=== PATIENT | female | born 1980 | race Hispanic/Latino ===

== ENCOUNTER 2020-05-24 06:55 | Emergency (ER) | payer OTHER ==
[~2020-05-24] VITALS: Ht 157.5 cm; Wt 90.7 kg
--- OUTSIDE RECORDS SUMMARY | ~2020-05-24 | XMS | Encounter Summary ---
Demographics + + + | Address | [facility] | | | [place] [address] | + + + | Home Phone | | + + + | Preferred Language | Unknown | + + + | Marital Status | Single | + + + | Anglican Affiliation | 1041 | + + + | Race | Unknown | + + + | Ethnic Group | or | + + + Author + + + | Author | [facility] | | | and [place] | + + + | Organization | [facility] | | | and [place] | + + + | Address | Unknown | + + + | Phone | Unavailable | + + + Support + + + + + | Name | Relationship | Address | Phone | + + + + + | Luke Montgomery | ECON | [address] | | | | | [place] | | | | | [place], [place] | | | | | [address] | | + + + + + | Amy Schneider | ECON | [address] | | | | | [place], [place] | | | | | [address] | | + + + + + | Alisha Schneider | ECON | Unknown | | + + + + + Care Team Providers + +------+ + | Care Ore Feeder Name | Role | Phone | + +------+ + | Jet Chaney MD | PCP | | + +------+ + Encounter Details +--------+ + + + + | Date | Type | Department | Care Team | Description | +--------+ + + + + | 07/01/ | Episode | [facility] | Fifi Zimmerman | | | 2018 | Changes | GASTROENTEROLOGY | THO [facility] | | | | | [address] [facility] | | | | | | [address] [place] | | | | | | [address] | | | | | | [phone] | | | +--------+ + + + + Social History + +-------+ +--------+------+ | Tobacco Use | Types | Packs/Day | Years | Date | | | | | Used | | + +-------+ +--------+------+ | Current Some Day | | | 0.3 | | | Smoker | | | | | + +-------+ +--------+------+ + +---+---+---+ | Smokeless Tobacco: | | | | | Never Used | | | | + +---+---+---+ + + | Comments: 2 cigs daily | + + + + +---------+ + | Alcohol Use | Drinks/Week | oz/Week | Comments | + + +---------+ + | No | 0 Standard drinks | 0.0 | | | | or equivalent | | | + + +---------+ + + + + | Sex Assigned at | Date Recorded | | | | + + + | Not on file | | + + + documented as of this encounter Plan of Treatment Not on filedocumented as of this encounter Visit Diagnoses Not on filedocumented in this encounter"
--- OUTSIDE RECORDS SUMMARY | ~2020-05-24 | XMS | Encounter Summary ---
Demographics + + + | Address | [facility] | | | [place] [address] | + + + | Home Phone | | + + + | Preferred Language | Unknown | + + + | Marital Status | Single | + + + | Episcopal Affiliation | 1041 | + + + | Race | Unknown | + + + | Ethnic Group | or | + + + Author + + + | Author | [facility] | | | and [place] | + + + | Organization | [facility] | | | and [place] [...] [place], [place] | | | | | [address] | | + + + + + | Amy Schneider | ECON | [address] | | | | | [place], [place] | | | | | [address] | | + + + + + | Alisha Schneider | ECON | Unknown | | + + + + + Care Team Providers + +------+ + | Care Web Marketing Coordinator Name | Role | Phone | + +------+ + | Jet Chaney MD | PCP | | + +------+ + Reason for Referral Diagnostic/Screening (Routine) +--------+--------+ + + + + | Status | Reason | Specialty | Diagnoses / | Referred By | Referred To | | | | | Procedures | Contact | Contact | +--------+--------+ + + + + | Closed | | Radiology | Diagnoses | Ritu, | [address] | | | | | | Jet Dempsey MD | [address] | | | | | Nephrolithia | [address] | [place], | | | | | sis | [place] | [place] [address] | | | | | Procedures | [place], [place] | Phone: | | | | | CT Abdomen | [address] | [phone] | | | | | Pelvis wo | Phone: | Fax: | | | | | Contrast | [phone] | [phone] | | | | | | Fax: | | | | | | | [phone] | | +--------+--------+ + + + + Reason for Visit + +--------+ + | Reason | Onset | Comments | | | Date | | + +--------+ + | Referral (Follow up) | 01/30/ | | | | 2017 | | + +--------+ + Encounter Details +--------+ + + + + | Date | Type | Department | Care Team | Description | +--------+ + + + + | 01/30/ | Telephone | [facility] | Jet Chaney, | Referral (Follow up) | | 2017 | | [facility] | [address] | | | | | [address] | [place] | | | | | [place] | [address] | | | | | [address] | | | | | | [phone] | | | +--------+ + + + [...] + + documented as of this encounter Miscellaneous Notes Telephone Encounter - Jet Chaney MD - 02/04/2018 4:35 PM PDTPer insurance requireme nt - CT changed to noncontrast CT Abd/Pelvis to evaluate kidney stone. Prashanth Chaney MD elephone Encounter - Roxana Lucio LPN - 01/30/2018 10:21 AM PDTMessage sent to referrals to check status o n getting the CT urogram authorized.Electronically signed by Roxana Lucio LPN at 018 10:21 AM PDTTelephone Encounter - Roxana Lucio LPN - 01/30/2018 10:21 AM PDT----- M nina from Jet Chaney MD sent at 01/24/2018 19:01 PDT ----- Regarding: CT If the CT urogram has not been approved yet - will you please follow-up with referrals. Thanks, Prashanth Chaney MD documented in this encounter Plan of Treatment Not on filedocumented as of this encounter Results CT Abdomen Pelvis wo Contrast (02/24/2018 4:35 PM PDT) + + | Specimen | + + | | + + + + + | Narrative | Performed At | + + + | CT ABDOMEN PELVIS WO CONTRAST 02/24/2018 4:30 PM HISTORY: | [facility] | | evaluation of possible kidney stones. COMPARISON: 02/04/2014 | | | PROTOCOL: Axial images of the abdomen and pelvis were obtained. | | | Coronal and sagittal reformations were acquired. FINDINGS: | | | LUNG BASE: Visualized lung bases are clear. Heart is normal in size. | | | No evidence of pleural effusion. Question a tiny 3 mm round left | | | nodule within the right middle lobe (series 2, image 3). | | | HEPATOBILIARY: The liver is mildly enlarged and demonstrates normal | | | parenchyma. Gallbladder is absent. No evidence of intrahepatic or | | | extrahepatic biliary ductal dilatation. SPLEEN: Normal parenchyma. | | | No evidence of mass or splenomegaly. PANCREASE: Normal parenchyma. No | | | evidence of pancreatic ductal dilation. ADRENAL GLANDS: No evidence | | | of nodule, mass or suspicious thickening. KIDNEYS: Multiple | | | nonobstructive bilateral small 1-3 mm renal calculi are present. No | | | evidence of hydronephrosis or hydroureter. No suspicious renal mass | | | identified on this noncontrast CT. Visualized portions of both ureters | | | appear normal. BOWEL: The stomach is normal. Imaged small bowel and | | | colon demonstrate no acute findings. No evidence of dilatation to | | | suggest obstruction or abnormal bowel wall thickening. VASCULATURE: | | | Limited visualization of the venous and arterial structures show no | | | gross abnormality within the confines of a noncontrast CT. LYMPH | | | NODES: No enlarged lymph nodes are visualized within the omentum or | | | retroperitoneum. PERITONEUM: There is no evidence for free fluid or | | | free air. BLADDER: Unremarkable. REPRODUCTIVE: Uterus and adnexal | | | structures are without evidence of gross abnormality. Intrauterine | | | device is noted. Prominence of both ovaries with benign appearing | | | likely small cystic lesions. SOFT TISSUES: Body wall soft tissue | | | structures are normal. BONES: There are no acute osseous | | | abnormalities. IMPRESSION - 1. Bilateral nonobstructive | | | nephrolithiasis. 2. Previous identified 3 mm groundglass nodule in | | | the right middle lobe is unchanged since 2014, benign with no further | | | follow-up imaging needed. 3. Mild/borderline hepatomegaly. | | | Dictated and Signed by: Alejo Farrar MD Electronically signed: | | | 02/24/2018 7:39 PM | | + + + + + | Procedure Note | + + | Kranthi, Rad Results In - 02/24/2018 7:[address] ABDOMEN PELVIS WO CONTRAST 02/24/2018 | | 4:30 PMHISTORY: evaluation of possible kidney stones.COMPARISON: 02/04/2014PROTOCOL: | | Axial images of the abdomen and pelvis were obtained. Coronal andsagittal reformations | | were acquired.FINDINGS:LUNG BASE: Visualized lung bases are clear. Heart is normal in | | size. No evidenceof pleural effusion. Question a tiny 3 mm round left nodule within the | | rightmiddle lobe (series 2, image 3).HEPATOBILIARY: The liver is mildly enlarged and | | demonstrates normal parenchyma.Gallbladder is absent. No evidence of intrahepatic or | | extrahepatic biliaryductal dilatation.SPLEEN: Normal parenchyma. No evidence of mass or | | splenomegaly.PANCREASE: Normal parenchyma. No evidence of pancreatic ductal | | dilation.ADRENAL GLANDS: No evidence of nodule, mass or suspicious thickening.KIDNEYS: | | Multiple nonobstructive bilateral small 1-3 mm renal calculi arepresent. No evidence of | | hydronephrosis or hydroureter. No suspicious renal massidentified on this noncontrast | | CT. Visualized portions of both ureters appearnormal.BOWEL: The stomach is normal. | | Imaged small bowel and colon demonstrate no acutefindings. No evidence of dilatation to | | suggest obstruction or abnormal bowelwall thickening.VASCULATURE: Limited visualization | | of the venous and arterial structures showno gross abnormality within the confines of a | | noncontrast CT.LYMPH NODES: No enlarged lymph nodes are visualized within the omentum | | orretroperitoneum. PERITONEUM: There is no evidence for free fluid or free air.BLADDER: | | Unremarkable.REPRODUCTIVE: Uterus and adnexal structures are without evidence of | | grossabnormality. Intrauterine device is noted. Prominence of both ovaries withbenign | | appearing likely small cystic lesions.SOFT TISSUES: Body wall soft tissue structures are | | normal. BONES: There are no acute osseous abnormalities.IMPRESSION -1. Bilateral | | nonobstructive nephrolithiasis.2. Previous identified 3 mm groundglass nodule in the | | right middle lobe isunchanged since 2013, benign with no further follow-up imaging | | needed.3. Mild/borderline hepatomegaly.Dictated and Signed by: Alejo Farrar MD | | Electronically signed: 02/24/2018 7:39 PM | |wall thickening. | |VASCULATURE: Limited visualization of the venous and arterial structures show | |no gross abnormality within the confines of a noncontrast CT. | |LYMPH NODES: No enlarged lymph nodes are visualized within the omentum or | |retroperitoneum. | |PERITONEUM: There is no evidence for free fluid or free air. | |BLADDER: Unremarkable. | |REPRODUCTIVE: Uterus and adnexal structures are without evidence of gross | |abnormality. Intrauterine device is noted. Prominence of both ovaries with | |benign appearing likely small cystic lesions. | |SOFT TISSUES: Body wall soft tissue structures are normal. | |BONES: There are no acute osseous abnormalities. | | | |IMPRESSION - | |1. Bilateral nonobstructive nephrolithiasis. | |2. Previous identified 3 mm groundglass nodule in the right middle lobe is | |unchanged since 2013, benign with no further follow-up imaging needed. | |3. Mild/borderline hepatomegaly. | | | |Dictated and Signed by: Alejo Farrar MD | | Electronically signed: 02/24/2018 7:39 PM | + + + +---------+ + + | Performing | Address | City/State/Zipcode | Phone Number | | Organization | | | | + +---------+ + + | [facility] | | | | + +---------+ + + documented in this encounter Visit Diagnoses + + | Diagnosis | + + | Nephrolithiasis - Primary Calculus of kidney | + + documented in this encounter"
--- OUTSIDE RECORDS SUMMARY | ~2020-05-24 | XMS | Encounter Summary ---
Demographics + + + | Address | [facility] | | | [place] [address] | + + + | Home Phone | | + + + | Preferred Language | Unknown | + + + | Marital Status | Single | + + + | Orthodox Affiliation | 1041 | + + + | Race | Unknown | + + + | Ethnic Group | or | + + + Author + + + | Author | [facility] | | | and [place] | + + + | Organization | [facility] | | | and [place] [...] [place], [place] | | | | | [address] | | + + + + + | Amy Schneider | ECON | [address] | | | | | [place], [place] | | | | | [address] | | + + + + + | Alisha Schneider | ECON | Unknown | | + + + + + Care Team Providers + +------+ + | Care Meal Room Hand Name | Role | Phone | + +------+ + | Jet Chaney MD | PCP | | + +------+ + Reason for Visit + + + | Reason | Comments | + + + | Procedure | trigger point injections | + + + Evaluate & Treat (Routine) +--------+ + + + + + | Status | Reason | Specialty | Diagnoses / | Referred By | Referred To | | | | | Procedures | Contact | Contact | +--------+ + + + + + | Closed | Specialty | Physical | Diagnoses | Oscar, | Eloy Moore | | | Services | Medicine and | Trigger | Eloy Yusuf MD | Gallo Yusuf MD [address] | | | Required | Rehabilitatio | point with | [address] | | | | n | back pain | [address] | [place], | | | | | Procedures | [place], | [place] [address] | | | | | [place] | [place] [address] | Phone: | | | | | TRIGGER | Phone: | [phone] | | | | | POINT, 3+ | [phone] | Fax: | | | | | [place] | Fax: | [phone] | | | | | METHYLPREDNI | [phone] | | | | | | SOLONE 40 MG | | | | | | | INJ DOS | | | | | | | 06/12/18 | | | +--------+ + + + + + Encounter Details +--------+ + + + + | Date | Type | Department | Care Team | Description | +--------+ + + + + | 06/12/ | Procedure | [facility] | Eloy Moore, | Trigger point with | | 2018 | visit | PHYSIATRY [address] | [address] | back pain (Primary | | | | [address] | [place], [place] | Dx) | | | | [place], [place] | [address] | | | | | [address] | | | | | | [phone] | | | +--------+ + + + [...] + + documented as of this encounter Last Filed Vital Signs + + + + + | Vital Sign | Reading | Time Taken | Comments | + + + + + | Blood Pressure | 135/90 | 06/12/2018 4:54 PM | | | | | PDT | | + + + + + | Pulse | 70 | 06/12/2018 4:54 PM | | | | | PDT | | + + + + + | Temperature | 36.4 C (97.5 F) | 06/12/2018 4:54 PM | | | | | PDT | | + + + + + | Respiratory Rate | - | - | | + + + + + | Oxygen Saturation | - | - | | + + + + + | Inhaled Oxygen | - | - | | | Concentration | | | | + + + + + | Weight | 89.8 kg (198 lb) | 06/12/2018 4:54 PM | | | | | PDT | | + + + + + | Height | 157.5 cm (5' 2") | 06/12/2018 4:54 PM | | | | | PDT | | + + + + + | Body Mass Index | 36.21 | 06/12/2018 4:54 PM | | | | | PDT | | + + + + + documented in this encounter Patient Instructions Patient Instructions Eloy Moore MD - 06/12/2018 4:30 PM PDTIf you develop any signs of infection (e.g. Fever, chills, redness, warmth, drainage) seek emergent medical attention and inform the clinic. Feel free to use ice, massage, and stretch after your injections to day. Please avoid direct heat, over the injections site, for 3 days following injection. Return to the clinic in 6-8 weeks to review management of smyptoms. documented in this encounter Progress Notes Eloy Moore MD - 06/12/2018 4:30 PM PDTFormatting of this note might be different fro m the original. Diagnosis: 1. Trigger point with back pain Procedure: Left lumbar paraspinal muscle trigger point injections Procedure Detail: Informed consent was obtained. Risk, benefits, and alternative treatmen ts were reviewed. Risks reviewed included but not limited to: bruising, bleeding, infection , damage to adjacent structures, disability and . The risk of skin discoloration from steroid injection was reviewed. The risk of pneumothorax, need for hospitalization, ventila tion, and emergent medical care was reviewed. Once informed consent was obtained two 5 ml syringes was/were prepared. Each syringe conta ined 1 ml of DepoMedrol 20 mg/ml, 2 ml of lidocaine 1% and 2 ml of 0.5% ropivacaine. Each s yringe had a total medication volume of 5 ml. The trigger points were identified anatomically, with palpation, and reproduction of pain. The skin over each of the trigger points was cleaned with an alcohol swab prior to injectio n. A 25 gauge 1-1/2 inch needle was used for all trigger point injections. The medication was injected evenly between 4 separate trigger points. At each trigger point, once medicat ion was injected, the needle was redirected in a ray-like fashion radiating out from the german tral insertion point of the needle. The muscles injected today include: left lumbar parasp inal muscles (including erector spinae). Baudilio Schneider was discharged from the clinic with the instructions; avoid the use of heat f or the next 3 days. The use of ice and massage is ok. The patient was instructed that shou ld they have any alarming signs or symptoms that they should seek emergent medical care as w ell as inform me in the clinic. Thank you for allowing me to be involved in the care of your patient. If you have any ques tions regarding the care of your patient please don't hesitate to call. Eloy Moore MD (Jr.) documented in this en counter Plan of Treatment Not on filedocumented as of this encounter Visit Diagnoses + + | Diagnosis | + + | Trigger point with back pain - Primary Backache, unspecified | + + documented in this encounter Administered Medications + + + +-------+------+ + | Medication Order | MAR | Action | Dose | Rate | Site | | | Action | Date | | | | + + + +-------+------+ + | lidocaine 1% injection 4 mL 4 | Given by | 06/12/20 | 4 mLs | | Other | | mL, Intramuscular, ONCE, Karen | Other | 18 5:39 | | | (Comment | | 06/12/18 at 1800, For 1 dose | | PM PDT | | | ) | + + + +-------+------+ + +---+---+ | | | +---+---+ + + + +-------+---+ + | methylPREDNISolone acetate | Given by | 06/12/20 | 40 mg | | Other | | (DEPO-MEDROL) 20 mg/mL injection | Other | 18 5:40 | | | (Comment | | 40 mg 40 mg, Intramuscular, | | PM PDT | | | ) | | ONCE, Karen 06/12/18 at 1800, For 1 | | | | | | | dose, Not for IV use., | | | | | | + + + +-------+---+ + +---+---+ | | | +---+---+ + + + +-------+---+ + | ropivacaine (NAROPIN) 5 mg/mL | Given by | 06/12/20 | 4 mLs | | Other | | (0.5%) injection 4 mL 4 mL, | Other | 18 5:39 | | | (Comment | | Infiltration, ONCE, [facility] 06/12/18 | | PM PDT | | | ) | | at 1800, For 1 dose | | | | | | + + + +-------+---+ + +---+---+ | | | +---+---+ documented in this encounter
--- OUTSIDE RECORDS SUMMARY | ~2020-05-24 | XMS | Encounter Summary ---
Demographics + + + | Address | [facility] | | | [place] [address] | + + + | Home Phone | | + + + | Preferred Language | Unknown | + + + | Marital Status | Single | + + + | Hoahaoism Affiliation | 1041 | + + + | Race | Unknown | + + + | Ethnic Group | or | + + + Author + + + | Author | [facility] | | | and [place] | + + + | Organization | [facility] | | | and [place] | [...] [place], [place] | | | | | [address] | | + + + + + | Amy Schneider | ECON | [address] | | | | | [place], [place] | | | | | [address] | | + + + + + | Alisha Schneider | ECON | Unknown | | + + + + + Care Team Providers + +------+ + | Care Railroad Crossing Protection Maintainer Name | Role | Phone | + +------+ + | Jet Chaney MD | PCP | | + +------+ + Reason for Visit + + + | Reason | Comments | + + + | Injections | Trigger points | + + + Service/Procedure (Routine) +--------+--------+ + + + + | Status | Reason | Specialty | Diagnoses / | Referred By | Referred To | | | | | Procedures | Contact | Contact | +--------+--------+ + + + + | Closed | | Physical | Diagnoses | Edmundo, | [facility] | | | | Medicine and | Trigger | JULITA Santamaria | Physiatry | | | | Rehabilitatio | point with | [address] | | | | n | back pain | [address] | [address] | | | | | Procedures | [address] | [place], | | | | | [place] INJECT | [place], | [place] [address] | | | | | TRIGGER | [place] [address] | Phone: | | | | | POINT, 3+ | Phone: | [phone] | | | | | MUSCLES [place] | [phone] | Fax: | | | | | OFFICE | Fax: | [phone] | | | | | OUTPATIENT | [phone] | | | | | | VISIT 15 | | | | | | | MINUTES HI | | | | | | | LIDOCAINE | | | | | | | INJECTION, | | | | | | | 10 MG DOS | | | | | | | 05/28/19 | | | | | | | Trigger | | | | | | | Point | | | | | | | Injections | | | +--------+--------+ + + + + Encounter Details +--------+ + + + + | Date | Type | Department | Care Team | Description | +--------+ + + + + | 11/09/ | Procedure | [facility] | Vi Noguera | Trigger point with | | 2020 | visit | PHYSIATRY [address] | JULITA Cancino [address] | back pain (Primary | | | | [address] | [address] | Dx); Strain of | | | | [place] | [address] [place], [place] | lumbar region, | | | | [address] | [address] | sequela | | | | [phone] | | | +--------+ + + + + Social History + + + +--------+------+ | Tobacco Use | Types | Packs/Day | Years | Date | | | | | Used | | + + + +--------+------+ | Current Some Day | Cigarettes | 0.1 | 5 | | | Smoker | | | | | + + + +--------+------+ + +---+---+---+ | Smokeless Tobacco: | | | | | Never Used | | | | + +---+---+---+ + + | Comments: 1-2 cigs daily | + + + + [...] + + + | Blood Pressure | 132/88 | 11/09/2019 3:49 PM | | | | | PST | | + + + + + | Pulse | 70 | 11/09/2019 3:49 PM | | | | | PST | | + + + + + | Temperature | - | - | | + + + + + | Respiratory Rate | 16 | 11/09/2019 3:49 PM | | | | | PST | | + + + + + | Oxygen Saturation | - | - | | + + + + + | Inhaled Oxygen | - | - | | | Concentration | | | | + + + + + | Weight | 95.7 kg (211 lb) | 11/09/2019 3:49 PM | | | | | PST | | + + + + + | Height | 157.5 cm (5' 2") | 11/09/2019 3:49 PM | | | | | PST | | + + + + + | Body Mass Index | 38.59 | 11/09/2019 3:49 PM | | | | | PST | | + + + + + documented in this encounter Patient Instructions Patient Instructions Vi Noguera PA-C - 11/09/2019 3:40 PM PSTFormatting of thi s note might be different from the original. Trigger Point Injection What is a trigger point? A trigger point is a tight, painful knot of muscle fiber. It can form where a muscle is strained or injured. The knot can sometimes be felt under the skin. A trigger point is ve ry tender to the touch. Pain may also spread to other parts of the affected muscle. Muscles around a knee, shoulder blade, or other bones are prone to trigger points. This is because t hese muscles are more likely to be injured. The cause of your muscle pain or spasms may be one or more trigger points. Your healthcare provider may decide to inject the painful spots to relax the muscle. This can help relieve y our pain. Relaxing the muscle can also make movement easier. You may then be able to exercis e to strengthen the muscle and help it heal. Injecting a trigger point can help relax the affected muscle and relieve pain. About the injections Any muscle in the body can have one or more trigger points. Several injections may be neede d in each trigger point to best relieve pain. These injections may be given in sessions abou t 2weeks apart, depending on the preference of your healthcare provider. In some cases, yo u may not feel much change in your symptoms until after the third injection. Risks and possible complications Risks and complications are very rare, but may include: Infection Bleeding Lung puncture (pneumothorax) Nerve damage Date Last Reviewed: 12/15/201719990487-9712 [facility]. [address] [place] [address]. All [facility] ts reserved. This information is not intended as a substitute for professional medical care. Always follow your healthcare professional's instructions. documented in this encounter Progress Notes Vi Noguera PA-C - 11/09/2019 3:40 PM PSTFormatting of this note might be diffe rent from the original. CC: low back pain Encounter Diagnoses Name Primary? Trigger point with back pain Yes Strain of lumbar region, sequela HPI: Baudilio Schneider is a 39 y.o. female who is being seen today in followup for continued ne ck pain and upper back/posterior shoulder pain. The patient has been seen for these complain ts in the past. Previously patient had good relief following procedure. Patient is intereste d in receiving trigger point injections today and I did feel that was appropriate. Description of procedure: After the patient gave consent for the procedure the trigger poin t injections were performed using sterile no-touch technique and a 25 gauge 1.5 inch needle. The areas were prepped with Betadine and alcohol and the areas were sprayed with a vapocool ant spray. The needle was then advanced into 6 different trigger points. A total of 10 mL of 1% lidocaine, was injected divided between the 6 sites. The patient was instructed to ice t he areas and to watch for signs of infection. Injection sites: bilateral lumbar paraspinals, bilateral QL muscles, bilateral serratus pos terior muscles ; 3 on left, 3 on right. Injection sites were near bilateral SI joints. This may be the underlying cause of her alonzo n. I recommend the patient return back for regular office visit when her pain recurs from t chemical preparer point injections for examination and consideration of SI joint injection. If this is denied it is possible her [facility] could cover her SI joint injections. ELECTRONICALLY SIGNED BY: Lauren Noguera PA-C, 11/09/19 documented in this encounter Plan of Treatment Not on filedocumented as of this encounter Visit Diagnoses + + | Diagnosis | + + | Trigger point with back pain - Primary Backache, unspecified | + + | Strain of lumbar region, sequela | + + documented in this encounter Administered Medications + + + +-------+------+------+ | Medication Order | MAR | Action | Dose | Rate | Site | | | Action | Date | | | | + + + +-------+------+------+ | lidocaine 1% injection 5 mL 5 | Given by | 11/09/19 | 5 mLs | | | | mL, Other, ONCE, 11/09/19 at | Other | 20 4:04 | | | | | 1630, For 1 dose | | PM PST | | | | + + + +-------+------+------+ +---+---+ | | | +---+---+ + + + +-------+---+---+ | ropivacaine (NAROPIN) 5 mg/mL | Given by | 11/09/19 | 5 mLs | | | | (0.5%) injection 5 mL 5 mL, | Other | 20 4:05 | | | | | Other, ONCE, 11/09/19 at 1630, | | PM PST | | | | | For 1 dose | | | | | | + + + +-------+---+---+ +---+---+ | | | +---+---+ documented in this encounter
--- OUTSIDE RECORDS SUMMARY | ~2020-05-24 | XMS | Encounter Summary ---
Demographics + + + | Address | [facility] | | | [place] [address] | + + + | Home Phone | | + + + | Preferred Language | Unknown | + + + | Marital Status | Single | + + + | Jainism Affiliation | 1041 | + + + | Race | Unknown | + + + | Ethnic Group | or | + + + Author + + + | Author | [facility] | | | and [place] | + + + | Organization | [facility] | | | and [place] [...] [place], [place] | | | | | [address] | | + + + + + | Amy Schneider | ECON | [address] | | | | | [place], [place] | | | | | [address] | | + + + + + | Alisha Schneider | ECON | Unknown | | + + + + + Care Team Providers + +------+ + | Care Supervisor Paste Plant Name | Role | Phone | + +------+ + | Jet Chaney MD | PCP | | + +------+ + Reason for Visit + + + | Reason | Comments | + + + | Medication Refill | | + + + Encounter Details +--------+--------+ + + + | Date | Type | Department | Care Team | Description | +--------+--------+ + + + | 06/06/ | Refill | [facility] | Jet Chaney, | Medication Refill | | 2014 | | [facility] | [address] | | | | | [address] | [place] | | | | | [place] | [address] | | | | | [address] | | | | | | [phone] | | | +--------+--------+ + + + Social History + +-------+ +--------+------+ | Tobacco Use | Types | Packs/Day | Years | Date | | | | | Used | | + +-------+ +--------+------+ | Current Some Day | | | 13 | | | Smoker | | | | | + +-------+ +--------+------+ + +---+---+---+ | Smokeless Tobacco: | | | | | Never Used | | | | + +---+---+---+ + + | Comments: 2 daily off and on | + + + + +---------+ + | Alcohol Use | Drinks/Week | oz/Week | Comments | + + +---------+ + | Yes | | | Very | | | | | occasionally-beer | + + +---------+ + + + + | Sex Assigned at | Date Recorded | | | | + + + | Not on file | | + + + documented as of this encounter Plan of Treatment Not on filedocumented as of this encounter Visit Diagnoses Not on filedocumented in this encounter"
--- OUTSIDE RECORDS SUMMARY | ~2020-05-24 | XMS | Encounter Summary ---
Demographics + + + | Address | [facility] | | | [place] [address] | + + + | Home Phone | | + + + | Preferred Language | Unknown | + + + | Marital Status | Single | + + + | Latter-Day Affiliation | 1041 | + + + | Race | Unknown | + + + | Ethnic Group | or | + + + Author + + + | Author | [facility] | | | and [place] | + + + | Organization | [facility] | | | and [...] [place], [place] | | | | | [address] | | + + + + + | Amy Schneider | ECON | [address] | | | | | [place], [place] | | | | | [address] | | + + + + + | Alisha Schneider | ECON | Unknown | | + + + + + Care Team Providers + +------+ + | Care Supervisor Dry Cell Assembly Name | Role | Phone | + +------+ + | Jet Chaney MD | PCP | | + +------+ + Reason for Visit + +--------+ + | Reason | Onset | Comments | | | Date | | + +--------+ + | Medication Prior | 10/27/ | | | Authorization | 2013 | | + +--------+ + Encounter Details +--------+ + + + + | Date | Type | Department | Care Team | Description | +--------+ + + + + | 10/27/ | Telephone | [facility] [place] [facility] | Jet Chaney, | Medication Prior | | 2013 | | [facility] | [address] | Authorization | | | | [address] | [place] | | | | | [place] | [address] | | | | | [address] | | | | | | [phone] | | | +--------+ + + + [...] this encounter Miscellaneous Notes Telephone Encounter - Ludmila Suarez - 10/30/2013 8:26 AM PSTFaxed elephone Encounter - Michelle Petersen RN - 2013 5:15 PM PSTFilled out [employer] Paperwork and printed chart notes Ready to fax elephone Encounter - Michelle Petersen RN - 10/27/2013 5:54 PM PSTInsurance - [employer] Insurance Phone - Insurance ID # - [id number] Medication/Strength - Nexium 40 mg Quantity - 30/month Dx: - GERD 530.81 [facility] Prior Medications Tried - Ranitidine 09/02/12-06/02/13, Omeprazole 06/02/13-10/01/13 [facility] documented in this enc ounter Plan of Treatment Not on filedocumented as of this encounter Visit Diagnoses Not on filedocumented in this encounter"
--- OUTSIDE RECORDS SUMMARY | ~2020-05-24 | XMS | Encounter Summary ---
Demographics + + + | Address | [address] | | | [place] [address] | + + + | Home Phone | | + + + | Preferred Language | Unknown | + + + | Marital Status | Single | + + + | Evangelical Affiliation | 1041 | + + + | Race | Unknown | + + + | Ethnic Group | or | + + + Author + + + | Author | [facility] | | | and [place] | + + + | Organization | [facility] | | | and [place] [...] [place], [place] | | | | | [address] | | + + + + + | Amy cShneider | ECON | [address] | | | | | [place], [place] | | | | | [address] | | + + + + + | Alisha Schneider | ECON | Unknown | | + + + + + Care Team Providers + +------+ + | Care Blow Molding Machine Operator Name | Role | Phone | + +------+ + | Jet Chaney MD | PCP | | + +------+ + Reason for Visit +---------+--------+ + | Reason | Onset | Comments | | | Date | | +---------+--------+ + | Results | 09/20/ | | | | 2017 | | +---------+--------+ + Encounter Details +--------+ + + + + | Date | Type | Department | Care Team | Description | +--------+ + + + + | 09/20/ | Telephone | [facility] [place] | Eloy Moore, | Results | | 2016 | | PHYSIATRY [address] | [address] | | | | | [address] | [place] | | | | | [place] | [address] | | | | | [address] | | | | | | [phone] | | | +--------+ + + + [...] | + +---+---+---+ + + | Comments: 1 cig weekly | + + + + +---------+ + [...] this encounter Miscellaneous Notes Telephone Encounter - Krystle Osorio RN - 09/20/2016 10:47 AM PSTPatient returned call, results given. eleph one Encounter - Krystle Osorio RN - 09/20/2016 10:38 AM PSTPatient called to be given res ults. Not available VM left. 10:4 0 AM PSTTelephone Encounter - Krystle Osorio RN - 09/20/2016 10:38 AM PST----- Message fr ki Moore MD sent at 09/19/2016 17:26 PST ----- Krystle, Please let Baudilio Schneider know that I have reviewed her lab results. There is no evidence o f any rheumatologic disease seen on her lab tests. Her back pain is most likely the result solely of arthritic changes. Thank you, Eloy Moore MD () ----- Message ----- From: Background User Lab Sent: 09/18/2016 16:48 To: Eloy Moore MD documented in this e ncounter Plan of Treatment Not on filedocumented as of this encounter Visit Diagnoses Not on filedocumented in this encounter"
--- OUTSIDE RECORDS SUMMARY | ~2020-05-24 | XMS | Encounter Summary ---
Demographics + + + | Address | [facility] | | | [place] [address] | + + + | Home Phone | | + + + | Preferred Language | Unknown | + + + | Marital Status | Single | + + + | Christianity Affiliation | 1041 | + + + | Race | Unknown | + + + | Ethnic Group | or | + + + Author + + + | Author | [facility] | | | and [place] | + + + | Organization | [facility] | | | and [place] | [...] [place], [place] | | | | | [address] | | + + + + + | Amy Schneider | ECON | [address] | | | | | [place], [place] | | | | | [address] | | + + + + + | Alisha Schneider | ECON | Unknown | | + + + + + Care Team Providers + +------+ + | Care Salsa Dance Instructor Name | Role | Phone | + [...] Description | +--------+--------+ + + + | 04/06/ | Refill | [facility] | Jet Chaney, | Medication Refill | | 2014 | | [facility] | [address] | | | | | [address] | [place] | | | | | [place] | [address] | | | | | [address] | | | | | | [phone] | | | +--------+--------+ + + + [...]
--- OUTSIDE RECORDS SUMMARY | ~2020-05-24 | XMS | Encounter Summary ---
Demographics + + + | Address | [facility] | | | [place] [address] | + + + | Home Phone | | + + + | Preferred Language | Unknown | + + + | Marital Status | Single | + + + | Mu-Ism Affiliation | 1041 | + + + | Race | Unknown | + + + | Ethnic Group | or | + + + Author + + + | Author | [facility] | | | and [place] | + + + | Organization | [facility] | | | and [place] [...] [place], [place] | | | | | [address] | | + + + + + | Amy Schneider | ECON | [address] | | | | | [place], [place] | | | | | [address] | | + + + + + | Alisha Schneider | ECON | Unknown | | + + + + + Care Team Providers + +------+ + | Care Forming And Assembling Supervisor Name | Role | Phone | + +------+ + | Dot Paredes MD | PCP | | + +------+ + Encounter Details +--------+ + + + + | Date | Type | Department | Care Team | Description | +--------+ + + + + | 08/08/ | Hospital | [facility] | | | | 2009 | Encounter | [facility] | | | | | | [address] | | | | | | [place] | | | | | | [address] | | | | | | [phone] | | | +--------+ + + + + Social History + +-------+ +--------+------+ | Tobacco Use | Types | Packs/Day | Years | Date | | | | | Used | | + +-------+ +--------+------+ | Never Assessed | | | | | + +-------+ +--------+------+ + + + | Sex Assigned at | Date Recorded | | | | + + + | Not on file | | + + + documented as of this encounter Medications at Time of Discharge + + + +---------+ + + | Medication | Sig | Dispensed | Refills | Start | End Date | | | | | | Date | | + + + +---------+ + + | levothyroxine | Take 50 mcg by mouth | | 0 | 01/25/20 | | | (LEVOXYL) 50 mcg | Daily. | | | 10 | 2 | | tablet | | | | | | + + + +---------+ + + | Psyllium | one by mouth twice a | | 0 | 08/07/20 | | | (METAMUCIL) WAFR | day | | | 10 | 2 | + + + +---------+ + + documented as of this encounter Plan of Treatment Not on filedocumented as of this encounter Visit Diagnoses Not on filedocumented in this encounter"
--- OUTSIDE RECORDS SUMMARY | ~2020-05-24 | XMS | Encounter Summary ---
Demographics + + + | Address | [facility] | | | [place] [address] | + + + | Home Phone | | + + + | Preferred Language | Unknown | + + + | Marital Status | Single | + + + | Pentecostal Affiliation | 1041 | + + + | Race | Unknown | + + + | Ethnic Group | or | + + + Author + + + | Author | [facility] | | | and [place] | + + + | Organization | [facility] | | | and [place] [...] [place], [place] | | | | | [address] | | + + + + + | Amy Schneider | ECON | [address] | | | | | [place], [place] | | | | | [address] | | + + + + + | Alisha Schneider | ECON | Unknown | | + + + + + Care Team Providers + +------+ + | Care Shoer Name | Role | Phone | + +------+ + | Jet Chaney MD | PCP | | + +------+ + Encounter Details +--------+ + + + + | Date | Type | Department | Care Team | Description | +--------+ + + + + | 01/22/ | Hospital | [facility] | Med Hu, | Kidney stone; | | 2019 | Encounter | MED CTR ULTRASOUND | ANIMAL SHELTER CLERK [address] | Hydronephrosis of | | | | [address] [place] | [place], [place] | left kidney | | | | [place], [place] | [address] | | | | | [address] | | | | | | [phone] | | | +--------+ + + + [...] + + + +---------+ + + | levonorgestrel | 1 Device by | 1 | 0 | 01/13/20 | | | (MIRENA) 20 MCG/24HR | Intrauterine route | Device | | 16 | 5 | | IUD | once for 1 dose. | | | | | + + + +---------+ + + | levothyroxine | Take 100 mcg by | | 0 | 12/12/19 | | | (SYNTHROID) 100 mcg | mouth every morning | | | 19 | | | tablet | (before breakfast). | | | | | + + + +---------+ + + | bisacodyl | Take 1 tablet by | 20 | 1 | 07/08/20 | | | (BISACODYL) 5 mg EC | mouth Daily as | tablet | | 18 | 9 | | tabletIndications: | needed for | | | | | | Constipation, | Constipation. | | | | | | unspecified | | | | | | | constipation type | | | | | | + + + +---------+ + + | Cholecalciferol | Take 5,000 Units by | | 0 | | | | (VITAMIN D3) 5000 | mouth Daily. | | | | 0 | | UNITS CAPS | | | | | | + + + +---------+ + + | docusate sodium | Take 1 capsule by | 90 | 1 | 07/08/20 | | | (COLACE) 100 mg | mouth Daily. To help | capsule | | 18 | 9 | | capsuleIndications: | constipation | | | | | | Constipation, | | | | | | | unspecified | | | | | | | constipation type | | | | | | + + + +---------+ + + | fish oil 1,000 mg | Take 2,000 mg by | | 0 | | | | capsule | mouth Daily. | | | | 0 | + + + +---------+ + + | ibuprofen | Take 600 mg by mouth | | 0 | | | | (ADVIL,MOTRIN) 600 | as needed. | | | | 0 | | MG tablet | | | | | | + + + +---------+ + + | levothyroxine | Take 88 mcg by mouth | | 0 | 04/22/20 | | | (SYNTHROID) 88 mcg | every morning | | | 18 | 9 | | tablet | (before breakfast). | | | | | + + + +---------+ + + | liothyronine | Take 5 mcg by mouth | | 0 | 12/05/19 | | | (CYTOMEL) 5 mcg | 2 times daily. | | | 19 | 9 | | tablet | | | | | | + + + +---------+ + + | lubiprostone | Take 1 capsule by | 60 | 1 | 09/30/19 | | | (AMITIZA) 8 mcg | mouth 2 times daily | capsule | | 19 | 9 | | capsuleIndications: | (with breakfast & | | | | | | Irritable bowel | dinner). | | | | | | syndrome with | | | | | | | constipation | | | | | | + + + +---------+ + + | meloxicam (MOBIC) | Take 7.5 mg by | | 0 | 01/08/20 | | | 7.5 mg tablet | mouth. | | | 17 | 9 | + + + +---------+ + + | Multiple | Take 1 tablet by | | 0 | | | | Vitamins-Minerals | mouth Daily. | | | | 0 | | (WOMENS ONE DAILY | | | | | | | PO) | | | | | | + + + +---------+ + + | nortriptyline | 1 capsule by mouth | 120 | 1 | 09/17/19 | | | (PAMELOR) 10 MG | at bedtime for 7 | capsule | | 18 | 0 | | capsule | days; then 2 at | | | | | | | bedtime for 7 days; | | | | | | | then 3 at bedtime | | | | | | | for 7 days; then 4 | | | | | | | at bedtime | | | | | + + + +---------+ + + | pantoprazole | Take 1 tablet by | 30 | 5 | 10/09/19 | | | (PROTONIX) 40 mg | mouth every morning | tablet | | 19 | 9 | | tabletIndications: | (before breakfast). | | | | | | Hodges's esophagus | To help stomach | | | | | | without dysplasia, | inflammation | | | | | | Chronic gastritis | | | | | | | without bleeding, | | | | | | | unspecified | | | | | | | gastritis type | | | | | | + + + +---------+ + + documented as of this encounter Plan of Treatment Not on filedocumented as of this encounter Procedures + +--------+ + + + | Procedure Name | Priori | Date/Time | Associated Diagnosis | Comments | | | ty | | | | + +--------+ + + + | US RENAL COMPLETE | Routin | 01/22/2019 | Kidney stone | Results for this | | | e | 4:21 PM | Hydronephrosis of | procedure are in the | | | | PDT | left kidney | results section. | + +--------+ + + + documented in this encounter Results US Renal Complete (01/22/2019 4:21 PM PDT) + + | Specimen | + + | | + + + + + | Narrative | Performed At | + + + | RENAL ULTRASOUND 01/22/2019 3:45 PM CLINICAL HISTORY: left | [facility] | | hydronephrosis and hydroureter COMPARISON: CT DECEMBER 22 AND MORE | | | REMOTE IMAGING FINDINGS: The right kidney measures 12.5 x 5.5 x | | | 6.2 cm and the left kidney measures 13 x 5.3 x 5.8 cm. Resistive | | | indices are normal. A 6 mm rounded hyperechoic structure is present | | | in the superior, medial left kidney. No other renal parenchymal | | | abnormality is evident. Central renal calculi identified on recent | | | CT are not visible sonographically. There is no residual | | | hydronephrosis. The bladder is unremarkable in contour and | | | appearance. A scant 1 cc post void bladder residual is calculated. | | | Ureteral jets were not observed during exam. IMPRESSION - 1. | | | NO RESIDUAL HYDRONEPHROSIS. 2. NON-SPECIFIC TINY HYPERECHOIC | | | FOCUS IN THE SUPERIOR LEFT KIDNEY. CONSIDER INTERVAL SONOGRAPHIC | | | FOLLOW-UP IN APPROXIMATELY SIX MONTHS. Dictated and Signed by: | | | Jose Ramon Ibrahim MD Electronically signed: 01/22/2019 7:08 PM | | + + + + + | Procedure Note | + + | Kranthi, Rad Results In - 01/22/2019 7:11 PM PDT RENAL ULTRASOUND 01/22/2019 3:45 PM | | | | CLINICAL HISTORY: left hydronephrosis and hydroureter | | | | COMPARISON: CT DECEMBER 22 AND MORE REMOTE IMAGING | | | | FINDINGS: The right kidney measures 12.5 x 5.5 x 6.2 cm and the left kidney | | measures 13 x 5.3 x 5.8 cm. Resistive indices are normal. A 6 mm rounded | | hyperechoic structure is present in the superior, medial left kidney. No other | | renal parenchymal abnormality is evident. Central renal calculi identified on | | recent CT are not visible sonographically. There is no residual hydronephrosis. | | | | The bladder is unremarkable in contour and appearance. A scant 1 cc post void | | bladder residual is calculated. Ureteral jets were not observed during exam. | | | | IMPRESSION - | | | | 1. NO RESIDUAL HYDRONEPHROSIS. | | | | 2. NON-SPECIFIC TINY HYPERECHOIC FOCUS IN THE SUPERIOR LEFT KIDNEY. CONSIDER | | INTERVAL SONOGRAPHIC FOLLOW-UP IN APPROXIMATELY SIX MONTHS. | | | | Dictated and Signed by: Jose Ramon Ibrahim MD | | Electronically signed: 01/22/2019 7:08 PM | + + + +---------+ + + | Performing | Address | City/State/Zipcode | Phone Number | | Organization | | | | + +---------+ + + | [facility] | | | | + +---------+ + + documented in this encounter Visit Diagnoses + + | Diagnosis | + + | Kidney stone Calculus of kidney | + + | Hydronephrosis of left kidney Hydronephrosis | + + documented in this encounter"
--- OUTSIDE RECORDS SUMMARY | ~2020-05-24 | XMS | Encounter Summary ---
Demographics + + + | Address | [facility] | | | [place] [address] | + + + | Home Phone | | + + + | Preferred Language | Unknown | + + + | Marital Status | Single | + + + | Rastafari Affiliation | 1041 | + + + | Race | Unknown | + + + | Ethnic Group | or | + + + Author + + + | Author | [facility] | | | and [place] | + + + | Organization | [facility] | | | and [place] [...] [place], [place] | | | | | [address] | | + + + + + | Amy Schneider | ECON | [address] | | | | | [place], [place] | | | | | [address] | | + + + + + | Alisha Schneider | ECON | Unknown | | + + + + + Care Team Providers + +------+ + | Care Wig Dresser Name | Role | Phone | + +------+ + | Jet Chaney MD | PCP | | + +------+ + Reason for Visit +---------+--------+ + | Reason | Onset | Comments | | | Date | | +---------+--------+ + | Results | 06/25/ | | | | 2014 | | +---------+--------+ + Encounter Details +--------+ + + + + | Date | Type | Department | Care Team | Description | +--------+ + + + + | 06/25/ | Telephone | [facility] [place] [facility] | Jet Chaney, | Results | | 2013 | | MEDICINE [place] | [address] | | | | | [address] | [place] | | | | | [place] | [address] | | | | | [address] | | | | | | [phone] | | | +--------+ + + + [...] this encounter Miscellaneous Notes Telephone Encounter - Rosalina Castano RN - 06/25/2014 2:32 PM PDTPatient notified.Ana Lilia ctronically signed by Rosalina Castano RN at 06/25/2014 2:32 PM PDTTelephone Encounter - Kemi Williamson LPN - 06/25/2014 1:44 PM PDTCalled patient and left a message to call charlie shepard. elephone Encount malou - Jet Chaney MD - 06/25/2014 8:29 AM PDTWill you please let Sochil know that her labs are good. Her kidney function is normal. Thanks, Prashanth Chaney MD documented in this e ncounter Plan of Treatment Not on filedocumented as of this encounter Visit Diagnoses Not on filedocumented in this encounter"
--- OUTSIDE RECORDS SUMMARY | ~2020-05-24 | XMS | Encounter Summary ---
Demographics + + + | Address | [facility] | | | [place] [address] | + + + | Home Phone | | + + + | Preferred Language | Unknown | + + + | Marital Status | Single | + + + | Anglican Affiliation | 1041 | + + + | Race | Unknown | + + + | Ethnic Group | or | + + + Author + + + | Author | [facility] | | | and [place] | + + + | Organization | [facility] | | | and [...] [place], [place] | | | | | [address] | | + + + + + | Amy Schneider | ECON | [address] | | | | | [place], [place] | | | | | [address] | | + + + + + | Alisha Schneider | ECON | Unknown | | + + + + + Care Team Providers + +------+ + | Care Dispatcher Chief Oil Name | Role | Phone | + +------+ + | Jet Chaney MD | PCP | | + +------+ + Reason for Visit + +--------+ + | Reason | Onset | Comments | | | Date | | + +--------+ + | Abdominal Pain | 09/29/ | | | | 2014 | | + +--------+ + Encounter Details +--------+ + + + + | Date | Type | Department | Care Team | Description | +--------+ + + + + | 09/29/ | Telephone | [facility] [place] [facility] | Jet Chaney, | Abdominal Pain | | 2013 | | [facility] | [address] | | | | | [address] | [place] | | | | | [place] | [address] | | | | | [address] | | | | | | [phone] | | | +--------+ + + + [...] this encounter Miscellaneous Notes Telephone Encounter - Michelle Petersen RN - 09/29/2013 4:27 PM PSTPhone call from patient. States that her abdominal pain is constant States that the pain is on her rib area States that with the bloating makes her feel short of breath Made her an appointment for afternoon I see that she talked with Dr. [place]'s office on the and twice today and gave them a d ifferent story document ed in this encounter Plan of Treatment Not on filedocumented as of this encounter Visit Diagnoses Not on filedocumented in this encounter"
--- OUTSIDE RECORDS SUMMARY | ~2020-05-24 | XMS | Encounter Summary ---
Demographics + + + | Address | [facility] | | | [place] [address] | + + + | Home Phone | | + + + | Preferred Language | Unknown | + + + | Marital Status | Single | + + + | Episcopal Affiliation | 1041 | + + + | Race | Unknown | + + + | Ethnic Group | or | + + + Author + + + | Author | [facility] | | | and [place] | + + + | Organization | [facility] | | | and [...] [place], [place] | | | | | [address] | | + + + + + | Amy Schneider | ECON | [address] | | | | | [place], [place] | | | | | [address] | | + + + + + | Alisha Schneider | ECON | Unknown | | + + + + + Care Team Providers + +------+ + | Care Reinforcing Iron And Rebar Workers Name | Role | Phone | + +------+ + | Jet Chaney MD | PCP | | + +------+ + Reason for Visit + + + | Reason | Comments | + + + | Diabetes Education | | + + + Evaluate & Treat (Routine) + + + + + + + | Status | Reason | Specialty | Diagnoses / | Referred By | Referred To | | | | | Procedures | Contact | Contact | + + + + + + + | Authorized | Specialty | Diabetes | Diagnoses | Ritu | Tamelam | | | Services | Educator / | Controlled | Jet Dempsey MD | Diabetes | | | Required | Diabetes | type 2 | [address] | Education | | | | Services | diabetes | [place] | [address] | | | | | mellitus | [place], [place] | [place], | | | | | with | [address] | [place] | | | | | microalbumin | Phone: | [phone] | | | | | uria, | [phone] | Phone: | | | | | without | Fax: | [phone] | | | | | long-term | [phone] | Fax: | | | | | current use | | [phone] | | | | | of insulin | | | | | | | (HCC) | | | + + + + + + + Encounter Details +--------+---------+ + + + | Date | Type | Department | Care Team | Description | +--------+---------+ + + + | 11/12/ | Office | [facility] | Jet Chaney, | Controlled type 2 | | 2020 | Visit | MED CTR DIABETES | [address] | diabetes mellitus | | | | EDUCATION [address] | [place] | with | | | | [address] [place], | [address] | microalbuminuria, | | | | [place] [address] | | without long-term | | | | [phone] | Summer Wayne, | current use of | | | | | RN | insulin (HCC) | +--------+---------+ + + + Social History + + [...] + + + | Blood Pressure | - | - | | + + + + + | Pulse | - | - | | + [...] + + + + | Weight | 95 kg (209 lb 6.4 | 11/12/2019 2:14 PM | | | | oz) | PST | | + + + + + | Height | - | - | | + + + + + | Body Mass Index | 38.3 | 11/09/2019 3:49 PM | | | | | PST | | + + + + + documented in this encounter Patient Instructions Patient Instructions Summer Wayne RN - 11/12/2019 10:00 AM PSTWalk 3 days per week f or 30 minutes starting tomorrow. Aim for no more than 3 servings (45 grams) of carbs at each meal. Read food labels- 15 gr ams of total carbohydrates = 1 serving of carbohydrate. Use the food guide from the diabete s education appointment to identify serving sizes for dairy, fruits and starches. Attend November Diabetes classes 1 1:08 AM PST documented in this encounter Progress Notes Summer Wayne RN - 11/12/2019 10:00 AM PST DIABETES EDUCATION NOTE Date: 11/12/2019 Class/Visit Type: Individual, Initial Support Person(s) Present: Family Member Barriers to Care: No Barriers Participant reason for today's visit: diabetes education Diabetes topics participant would like to learn about/discuss today: Healthy Eating, Physic al Activity Concerns/Changes: Evgeny is here today for diabetes education. She said she has known she had pre-diabetes for a while now. Her A1C is 6.7. Weight today is 209.4 lbs. She is inter ested in losing weight and learning which foods she "can eat" we discussed a 45 grams of ca rbohydrates per meal or 3 servings of carbs per meal. She understand know how to count carb s and which foods have carbohydrates. We also talked about food labels and how to pick food s and count carbs when looking at serving size and total carbohydrates from a food label. T his information was new to her so we spent a few minutes going over it. She is very interes tonny in starting a work out regime for herself. She has had a membership to the gym in [facility]. She in wanting to restart that but for now made a goal to start walking 3 days per week for 30 minutes. We discussed monitoring her sugar levels and documenting them in a book. I asked her to bring this book to each appointment. She is currently checking fast ing and two-three times per day. I let her know that checking fasting was important and if she wanted to she could check a couple times a week 1-2 hours after a meal to see what her b lood sugar does. Evgeny is taking all her prescribes pills as ordered. No side effects from the metformin. We will have a follow up in two months and she in interested in attending [facility] diabetes education classes for November. How long has the patient had Diabetes?: Less than 2 years When did the patient last receive Diabetes Education?: Never(did see someone in nutrition a few years ago) Pertinent Diabetes History Office Visit from 11/12/2019 in [facility] DIABETES EDUCATION Hospitalization No hospitalization for diabetes Current diabetes symptoms Thirst, Fatigue, Blurred Vision Low blood sugar Denies Low Blood Sugar in past month Last 3 A1C's: Lab Results Component Value Date HBA1C 6.7 (H) 09/07/2019 HBA1C 6.4 (H) 11/11/2018 HBA1C 5.9 02/07/2018 Overview Topics Discussed: Pathophysiology of Diabetes, Nutrition, Physical Activity, Diab etes Medications, Monitoring, Acute Complications, Chronic Complications, Psychosocial Issue s, Behavior Change Resources Provided: Explanation, Demo, Handout, Role play Self-Care Behaviors and Behavioral Goals: Healthy Eating Office Visit from 11/12/2019 in [facility] DIABETES EDUCATION Assessment Health Behaviors, Health Beliefs & Attitudes, Knowledge & Skills, Patient demon strates understanding Discussion effect of carbohydrates on blood glucose, timing of meals & snacks, plate metho d/balance your plate, identify carbohydrate foods and appropriate portions, nutrition labels Date 11/12/19 Goal Aim for no more than 3 servings (45 grams) of carbs at each meal. Read food labels- 15 grams of total carbohydrates = 1 serving of carbohydrate. Use the food guide from the d nikolaybetes education appointment to identify serving sizes for dairy, fruits and starches. Pt Confidence 9 Being Active Office Visit from 11/12/2019 in [facility] DIABETES EDUCATION Assessment Health Behaviors, Knowledge & Skills, Patient demonstrates understanding Discussion exercise safety, benefits of exercise/physical activity Date 11/12/19 Goal walk for 30 minutes three days per week starting tomorrow Pt Confidence 10 Patient Instructions: Walk 3 days per week for 30 minutes starting tomorrow. Aim for no more than 3 servings (45 grams) of carbs at each meal. Read food labels- 15 gr ams of total carbohydrates = 1 serving of carbohydrate. Use the food guide from the diabete s education appointment to identify serving sizes for dairy, fruits and starches. Attend March Diabetes classes Diabetes Self-Management Follow-Up Plan: Consult with PCP/Specialist regularly for recomme ndations, includes lab tests, dental care, eye screenings, feet, heart and kidneys Follow Up: 2 Months Follow Up Contact Method: Telephone Future Appointments Date Time Provider Department Center 11/18/2019 9:00 AM DIABETES EDUC [facility] 11/25/2019 9:00 AM DIABETES EDUC [facility] 12/02/2019 9:00 AM DIABETES EDUC [facility] 12/14/2019 4:00 PM [facility] 12/21/2019 1:20 PM Vi Noguera PA-C [facility] 12/23/2019 12:00 PM Summer Wayne RN [facility] Time spent with patient: 60 Start Time: 1000 Stop Time: 1100 documented in this encounter Plan of Treatment + + +--------+ + + | Name | Type | Priori | Associated Diagnoses | Order Schedule | | | | ty | | | + + +--------+ + + | * [facility] Diabetes | Outpatient | Routin | Controlled type 2 | Ordered: 11/02/2019 | | Education - AMB | Referral | e | diabetes mellitus | | | Referral | | | with | | | | | | microalbuminuria, | | | | | | without long-term | | | | | | current use of | | | | | | insulin (HCC) | | + + +--------+ + + documented as of this encounter Visit Diagnoses + + | Diagnosis | + + | Controlled type 2 diabetes mellitus with microalbuminuria, without long-term current | | use of insulin (HCC) | + + documented in this encounter
--- OUTSIDE RECORDS SUMMARY | ~2020-05-24 | XMS | Encounter Summary ---
Demographics + + + | Address | [facility] | | | [place] [address] | + + + | Home Phone | | + + + | Preferred Language | Unknown | + + + | Marital Status | Single | + + + | Jain Affiliation | 1041 | + + + | Race | Unknown | + + + | Ethnic Group | or | + + + Author + + + | Author | [facility] | | | and [place] | + + + | Organization | [facility] | | | and [place] [...] [place], [place] | | | | | [address] | | + + + + + | Amy Schneider | ECON | [address] | | | | | [place], [place] | | | | | [address] | | + + + + + | Alisha Schneider | ECON | Unknown | | + + + + + Care Team Providers + +------+ + | Care Utility Worker Forge Name | Role | Phone | + +------+ + | Jet Chaney MD | PCP | | + +------+ + Reason for Visit + +--------+ + | Reason | Onset | Comments | | | Date | | + +--------+ + | Results, Imaging | 12/03/ | | | | 2018 | | + +--------+ + Encounter Details +--------+ + + + + | Date | Type | Department | Care Team | Description | +--------+ + + + + | 12/03/ | Telephone | [facility] [place] | Eloy Moore, | Results, Imaging | | 2017 | | PHYSIATRY [address] | [address] | | | | | [address] | [place], [place] | | | | | [place], [place] | [address] | | | | | [address] | | | | | | [phone] | | | +--------+ + + + [...] this encounter Miscellaneous Notes Telephone Encounter - Rea Villatoro Tool Design Draftsperson - 12/03/2017 1:11 PM PDTCalle d to inform Baudilio Schneider of imaging results. Left a voicemail message to call our office charlie shepard. TTelephone Encounter - Rea Villatoro Medical Assistant - 12/03/2017 1:11 PM PDT----- Message from Eloy Moore MD sent at 12/02/2017 12:54 PDT ----- Krystle, Please let Baudilio Schneider know that I have I have reviewed her SI joint x-rays. There are n o emergent results. The x-rays of the SI joints returned as normal. It is possible to stil l have pain coming from SI joints despite normal x-ray findings. Thank you, Eloy Moore MD (Jr.) ----- Message ----- From: Abram Crisostomo Results In Sent: 11/23/2017 20:31 To: Eloy Moore MD do cumented in this encounter Plan of Treatment Not on filedocumented as of this encounter Visit Diagnoses Not on filedocumented in this encounter"
--- OUTSIDE RECORDS SUMMARY | ~2020-05-24 | XMS | Encounter Summary ---
Demographics + + + | Address | [facility] | | | [place] [address] | + + + | Home Phone | | + + + | Preferred Language | Unknown | + + + | Marital Status | Single | + + + | Anabaptism Affiliation | 1041 | + + + | Race | Unknown | + + + | Ethnic Group | or | + + + Author + + + | Author | [facility] | | | and [place] | + + + | Organization | [facility] | | | and [place] | + [...] [place], [place] | | | | | [address] | | + + + + + | Amy Schneider | ECON | [address] | | | | | [place], [place] | | | | | [address] | | + + + + + | Alisha Schneider | ECON | Unknown | | + + + + + Care Team Providers + +------+ + | Care Product Development Director Name | Role | Phone | + +------+ + | Jet Chaney MD | PCP | | + +------+ + Reason for Visit + + + | Reason | Comments | + + + | Back Pain | | + + + Encounter Details +--------+---------+ + + + | Date | Type | Department | Care Team | Description | +--------+---------+ + + + | 02/23/ | Office | [facility] | Jet Chaney, | Chronic low back | | 2014 | Visit | [facility] | [address] | pain (Primary Dx); | | | | [address] | [place], [place] | Chronic abdominal | | | | [place], [place] | [address] | pain; Incidental | | | | [address] | | lung nodule, > 3mm | | | | [phone] | | and < 8mm; Tobacco | | | | | | abuse; Dysuria; | | | | | | Molluscum | | | | | | contagiosum | +--------+---------+ + + + Social History + +-------+ [...] + + + | Blood Pressure | 110/78 | 02/23/2014 4:38 PM | | | | | PDT | | + + + + + | Pulse | 80 | 02/23/2014 4:38 PM | | | | | PDT | | + + + + + | Temperature | 36.8 C (98.3 F) | 02/23/2014 4:38 PM | | | | | PDT | | + + + + + | Respiratory Rate | 16 | 02/23/2014 4:38 PM | | | | | PDT | | + + + + + | Oxygen Saturation | - | - | | + + + + + | Inhaled Oxygen | - | - | | | Concentration | | | | + + + + + | Weight | 98.2 kg (216 lb 6.4 | 02/23/2014 4:38 PM | | | | oz) | PDT | | + + + + + | Height | - | - | | + + + + + | Body Mass Index | 39.58 | 08/27/2013 4:43 PM | | | | | PST | | + + + + + documented in this encounter Patient Instructions Patient Instructions Jet Chaney MD - 02/23/2014 5:18 PM PDT BP 110/78 | Pulse 80 | Temp 36.8 C (98.3 F) (Temporal) | Resp 16 | Wt 98.158 kg (216 lb 6.4 oz) | LMP 01/29/2014 The best thing you can do for your health is quit smoking. Quitting smoking will improve y our back pain by decreasing the inflammation and also reduce your risk of getting cancer or a heart attack The next best thing you can do for your health is lose weight. Losing weight will improve the back and decrease inflammation in the body. Increase the amitriptyline to 50 mg nightly. Future refills will be for 50 mg tablets, so just take one of these tablets. You need to repeat a CT of your chest in January 2015 to make sure the tiny 3 mm lung nodule is not getting bigger. How To Quit Smoking Smoking is one of the hardest habits to break. About half of all those who have ever smoked have been able to quit, and most of those (about 70%) who still smoke want to quit. Here ar e some of the best ways to stop smoking. Keep Trying: It takes most smokers about 8 tries before they are finally able to fully quit. So, the mor e often you try and fail, the better your chance of quitting the next time! So, don't give u p! Go Cold Haskell: Most ex-smokers quit cold turkey. Trying to cut back gradually doesn't seem to work as well , perhaps because it continues the smoking habit. Also, it is possible to fool yourself by i nhaling more while smoking fewer cigarettes. This results in the same amount of nicotine in your body! Get Support: Support programs can make an important difference, especially for the heavy smoker. These g roups offer lectures, methods to change your behavior and peer support. Call the [facility] Quitline for more information. 051-GSTO-RZE (702-020-2767). Low-cost or free programs are offered by many hospitals, local chapters of the [place] [employer] (176-391-5741) a nd the [employer] [employer] (535-484-4850). Support at home is important too. Non-smokers can help by offering praise and encouragement. If the smoker fails to quit, encourage them to try again! Zurt-Nrt-Ntzamee Medicines: For those who can't quit on their own, Nicotine Replacement Therapy (NRT) may make quitting much easier. Certain aids such as the nicotine patch, gum and lozenge are available without a prescription. However, it is best to use these under the guidance of your doctor. The ski n patch provides a steady supply of nicotine to the body. Nicotine gum and lozenge gives tem porary bursts of low levels of nicotine. Both methods take the edge off the craving for ciga rettes. WARNING: If you feel symptoms of nicotine overdose, such as nausea, vomiting, dizzin ess, weakness, or fast heartbeat, stop using these and see your doctor. Prescription Medicines: After evaluating your smoking patterns and prior attempts at quitting, your doctor may offe r a prescription medicine such as bupropion (Zyban, Wellbutrin), varenicline (Chantix, [place] ix), a niocotine inhaler or nasal spray. Each has its unique advantage and side effects whic h your doctor can review with you. Health Benefits Of Quitting: The benefits of quitting start right away and keep improving the longer you go without smok in minutes: blood pressure and pulse return to normal 8 hours: oxygen levels return to normal 2 days: ability to smell and taste begins to improve as damaged nerves start to regrow 2-3 weeks: circulation and lung function improves 1-9 months: decreased cough, congestion and shortness of breath; less tired 1 year: risk of heart attack decreases by half 5 years: risk of lung cancer decreases by half; risk of stroke becomes the same as a non -smoker For information about how to quit smoking, visit the following links: National Cancer [place] , Clearing the Air, Quit Smoking Today - an online valencia klet. http://www.smokefree.gov/pubs/clearing_the_air.pdf Smokefree.gov http://smokefree.gov/ QuitNet http://www.quitnet.com/ 6337-5204 Yany Agustin, [address] [place] [address], [place] [address]. All rights reserve d. This information is not intended as a substitute for professional medical care. Always fo llow your healthcare professional's instructions. Weight Management: Getting Started Healthy bodies come in all shapes and sizes. Not all bodies are made to be thin. For some p eople, a healthy weight is higher or lower than the average weight listed on weight charts. Your doctor can help you decide on a healthy weight for you. Reasons to Lose Weight Losing weight can help with some health problems, such as high blood pressure, heart diseas e, diabetes, and sleep apnea. You may also feel more energy. Set Your Long-term Goal Your goal doesn t even have to be a specific weight. You may decide on a fitness goal (sharp ch as walking 10 miles a week), or a health goal (such as lowering your blood pressure). Cho ose a goal that is measurable, so you know when you ve reached it. Make an Action Plan Habits don t change overnight. Setting your goals too high can leave you feeling discoura ged if you can t reach them. Be realistic. Choose one or two small changes you can make no w. Set an action plan for how you are going to make these changes. When you can stick to thi s plan, make a few more small changes. Taking small steps will help you stay on the path to success. Track Your Progress Write down your goals. Then, keep a daily record of your progress. Write down what you eat and how active you are. This record lets you look back on how much you ve done. It may als o help when you re feeling frustrated. Reward yourself for success. Even if you don t re ach every goal, give yourself credit for what you do get done. Get Support Encouragement from others can help make losing weight easier. Ask your family members and f riends for support. They may even want to join you. Also look to your doctor, registered titian, and management professional for help. Your local hospital can give you more information about nutrition, exercise, and weight loss. [phone] [facility], [address] [place] [address], [place] [address]. All rights reserve d. This information is not intended as a substitute for professional medical care. Always fo llow your healthcare professional's instructions. Losing Weight (Cardiovascular) Excess weight is a major risk factor for heart disease. Losing weight may help keep your ar teries open so that your heart can get the oxygen-rich blood it needs. Weight loss can also help lower your blood pressure and reduce your risk for diabetes. All in all, losing weight makes you healthier. Exercise with a friend. When activity is fun, you're more likely to stick with it. Calories and Weight Loss Calories are the fuel your body howe for energy. You get the calories you need from the food you eat. For healthy weight loss, women should eat at least 1,200 calories a day, men at least 1,500. When you eat more calories than you need, your body stores the extra calories as fat. On e pound of fat equals 3,500 calories. To lose weight, try to burn 500 calories a day more than you eat. To do this, eat 250 ca lories less each day. Add activity to burn the other 250 calories. Walking 21/2 miles howe about 250 calories. Eat a variety of healthy foods. It s the best way to make calories count. Tips for losing weight: Drink 8 to 10 glasses of water a day. Don t skip meals. Instead, eat smaller portions. Brisk Activity Is Best Brisk activity gets your heart pumping faster. It makes your heart healthier. It s also t he best way to burn calories. In fact, your body may keep burning calories for hours after y ou stop a brisk activity. Begin by walking 10 minutes most days. Add more time and speed to your walk. Build up as you feel able. Try to walk briskly at least 30 minutes most days. If needed, you can break this into 2 shorter sessions. Check off the ideas below that you could try to make your day more active: Take the stairs instead of the elevator. Park your car farther away and walk. Ride a bike to work or to the store. Walk laps around the mall. [phone] [place] [address]. All rights reserve d. This information is not intended as a substitute for professional medical care. Always fo llow your healthcare professional's instructions. documented in this encounter Progress Notes Jet Chaney MD - 02/23/2014 5:02 PM PDTFormatting of this note might be different fr om the original. Subjective: Patient ID: Baudilio Schneider is a 33 y.o. female here to follow-up on back pain and abdominal pain. HPI She is taking amitriptyline 25 mg nightly and tolerating well. She notices good improvemen t in back pain at night, but continues to have lower back pain during the day. Pain is loca tonny primarily in left lower back. Pain described as an ache. Pain does not radiate. She d oes have intermittent tingling in both feet and ankles if she walks for prolonged periods. Pain is worse when standing for too long or frequently bending forward. Currently she has n o pain, but did have pain earlier today. She takes ibuprofen a few days per week, which solis s help the back pain. She has not tried PT because it is not covered by insurance. But she is doing exercises at home - using a cradle ball, biking 3 times per week. No fever, saddl e paresthesias, bowel/bladder dysfunction. Her abdominal pain has resolved. She is taking omeprazole 40 mg daily. No N/V, melena, he matochezia. She noticed a strong smell to her urine and mild burning with urination for the past 3 week s. Symptoms are unchanged in 3 weeks. No fever, N/V, hematuria. She continues to smoke but has cut back to 1-2 cigarettes per day. She has 2 warts on her face that she would like frozen. Patient's medications, allergies, past medical, surgical, social and family histories were reviewed and updated as appropriate. Review of Systems Constitutional: Negative for fever and unexpected weight change. No Night Sweats Respiratory: Negative for cough (No hemoptysis). BP 110/78 | Pulse 80 | Temp 36.8 C (98.3 F) (Temporal) | Resp 16 | Wt 98.158 kg (216 lb 6.4 oz) | LMP 01/29/2014 Objective: Physical Exam Constitutional: She appears well-developed and well-nourished. No distress. Cardiovascular: Normal rate, regular rhythm, normal heart sounds and intact distal pulses. Exam reveals no gallop and no friction rub. No murmur heard. Pulmonary/Chest: Effort normal. No respiratory distress. She has no wheezes. She has no ral es. Abdominal: Soft. She exhibits no distension and no mass. There is tenderness (mild diffuse tenderness without rebound or guarding). There is no rebound and no guarding. Musculoskeletal: No spinal or paraspinal tenderness Symmetric 5/5 strength in LE's bilaterally. Able to walk on toes, walk on heels, waddle li ke duck Neurological: Negative straight leg raise Patella, Achilles 1+ symmetric Sensation to light touch intact in LE's Skin: 2 small umbilicated papules on forehead. One is medial to left eye brow and one is on bridge of nose. Assessment: Baudilio was seen today for back pain. Diagnoses and associated orders for this visit: Chronic low back pain: Slight improvement. No concerning radicular symptoms. Unfortunate ly PT not covered - Increase amitriptyline (ELAVIL) 50 mg tablet; Take 1 tablet by mouth nightly. To help con trol back pain Chronic abdominal pain: Resolved since taking omeprazole daily. Suspect due to uncontroll ed gastritis. She had EGD consistent with gastritis. CT Abd/Pelvis unremarkable - Continue omeprazole - Weight loss and lifestyle changes Incidental lung nodule, > 3mm and < 8mm: Educated on this finding. - Repeat CT Chest in 1 year - Quit smoking Tobacco abuse - Advised to quit Dysuria - Urinalysis, Reflex Microscopic and/or Culture; Future Molluscum contagiosum - Liquid nitrogen x 3 freeze thaw cycles FU: 6 weeks rPashanth Chaney MD raik, PRINCE Ling - 02/23/2014 4:38 PM PDTPatient is here for a follow-up on her back pain.Electronically s igned by Kemi Williamson LPN at 02/23/2014 6:08 PM PDTdocumented in this encounter Plan of Treatment Not on filedocumented as of this encounter Results Urinalysis, Reflex Microscopic and/or Culture (02/23/2014 5:33 PM PDT) + + + + + + | Component | Value | Ref Range | Performed | Pathologist | | | | | At | Signature | + + + + + + | Color, | Yellow | Light Yellow, | [facility] | | | Urine | | Yellow | [facility] | | | | | | MEDICAL | | | | | | CENTER - | | | | | | LABORATORY | | + + + + + + | Clarity, | Cloudy (A) | Clear | [facility] | | | Urine | | | [facility] | | | | | | MEDICAL | | | | | | CENTER - | | | | | | LABORATORY | | + + + + + + | pH, Urine | 6.5 | 5.0 - 8.0 | [facility] | | | | | | [facility] | | | | | | MEDICAL | | | | | | CENTER - | | | | | | LABORATORY | | + + + + + + | Specific | 1.025 | 1.001 - 1.030 | [facility] | | | [place], | | | [facility] | | | Urine | | | MEDICAL | | | | | | CENTER - | | | | | | LABORATORY | | + + + + + + | Protein, | 30 mg/dL | Negative, | [facility] | | | Urine | | Trace, 30 mg/dL | [facility] | | | | | | [facility] | | | | | | CENTER - | | | | | | LABORATORY | | + + + + + + | Blood, | Negative | Negative | [facility] | | | Urine | | | [facility] | | | | | | [facility]ICAL | | | | | | CENTER - | | | | | | LABORATORY | | + + + + + + | Glucose, | Negative | Negative | [facility] | | | Urine | | | [facility] | | | | | | [facility] | | | | | | CENTER - | | | | | | LABORATORY | | + + + + + + | Ketones, | Negative | Negative | [facility] | | | Urine | | | [facility] | | | | | | MED[facility] | | | | | | CENTER - | | | | | | LABORATORY | | + + + + + + | Bilirubin, | Negative | Negative | [facility] | | | Urine | | | [facility] | | | | | | [facility] | | | | | | CENTER - | | | | | | LABORATORY | | + + + + + + | Nitrite, | Negative | Negative | [facility] | | | Urine | | | [facility] | | | | | | [facility] - | | | | | | LABORATORY | | + + + + + + | Leukocyte | Trace (A) | Negative | [facility] | | | Esterase, | | | [facility] | | | Urine | | | MEDICAL | | | | | | CENTER - | | | | | | LABORATORY | | + + + + + + | Urobilinoge | 0.2 E.U./dL | 0.2 E.U./dL | [facility] | | | n, Urine | | | [facility] | | | | | | MEDICAL | | | | | | CENTER - | | | | | | LABORATORY | | + + + + + + | White Blood | 2-5 (A) | 0 - 2 /HPF | [facility] | | | Cells, | | | [facility] | | | Urine | | | MEDICAL | | | | | | CENTER - | | | | | | LABORATORY | | + + + + + + | Red Blood | 0-2 | 0 - 2 /HPF | [facility] | | | Cells, | | | [facility] | | | Urine | | | MEDICAL | | | | | | CENTER - | | | | | | LABORATORY | | + + + + + + | Squamous | 25-50 (A)Comment: | 0 - 2 /LPF | [facility] | | | Epithelial | Contaminated specimen, | | [facility] | | | Cells, | suggest recollection. | | MEDICAL | | | Urine | | | CENTER - | | | | | | LABORATORY | | + + + + + + | Bacteria, | 1+ (A) | Negative /HPF | [facility] | | | Urine | | | [facility] | | | | | | MEDICAL | | | | | | CENTER - | | | | | | LABORATORY | | + + + + + + + + | Specimen | + + | Urine | + + + + + + + | Performing | Address | City/State/Zipcode | Phone Number | | Organization | | | | + + + + + | [facility] | [address] | [place] | [phone] | | [facility] | | [address] | | | - LABORATORY | | | | + + + + + | [facility] | [address] | [place] | | | [facility] | | [address], [facility] | | | - LABORATORY | | | | + + + + + documented in this encounter Visit Diagnoses + + | Diagnosis | + + | Chronic low back pain - Primary Lumbago | + + | Chronic abdominal pain Abdominal pain, unspecified site | + + | Incidental lung nodule, > 3mm and < 8mm Solitary pulmonary nodule | + + | Tobacco abuse Tobacco use disorder | + + | Dysuria | + + | Molluscum contagiosum | + + documented in this encounter"
--- OUTSIDE RECORDS SUMMARY | ~2020-05-24 | XMS | Encounter Summary ---
Demographics + + + | Address | [facility] | | | [place] [address] | + + + | Home Phone | | + + + | Preferred Language | Unknown | + + + | Marital Status | Single | + + + | Hoahaoism Affiliation | 1041 | + + + | Race | Unknown | + + + | Ethnic Group | or | + + + Author + + + | Author | [facility] | | | and [place] | + + + | Organization | [facility] | | | and [place] [...] [place], [place] | | | | | [address] | | + + + + + | Amy Schneider | ECON | [address] | | | | | [place], [place] | | | | | [address] | | + + + + + | Alisha Schneider | ECON | Unknown | | + + + + + Care Team Providers + +------+ + | Care Psychology Teacher Name | Role | Phone | + +------+ + | Jet Chaney MD | PCP | | + +------+ + Encounter Details +--------+ + + + + | Date | Type | Department | Care Team | Description | +--------+ + + + + | 04/13/ | Orders Only | [facility] | Provider, | | | 2018 | | [facility] | [address] | | | | | [address] | [place] | | | | | [address] [place], [place] | [place] [address] | | | | | [address] | | | | | | [phone] | | | +--------+ + + + [...]
--- OUTSIDE RECORDS SUMMARY | ~2020-05-24 | XMS | Encounter Summary ---
Demographics + + + | Address | [facility] | | | [place] [address] | + + + | Home Phone | | + + + | Preferred Language | Unknown | + + + | Marital Status | Single | + + + | Adventism Affiliation | 1041 | + + + | Race | Unknown | + + + | Ethnic Group | or | + + + Author + + + | Author | [facility] | | | and [place] | + + + | Organization | [facility] | | | and [place] [...] [place], [place] | | | | | [address] | | + + + + + | Amy Schneider | ECON | [address] | | | | | [place], [place] | | | | | [address] | | + + + + + | Alisha Schneider | ECON | Unknown | | + + + + + Care Team Providers + +------+ + | Care Physiotherapist'S Assistant Name | Role | Phone | + +------+ + | Jet Chaney MD | PCP | | + +------+ + Reason for Visit + +--------+ + | Reason | Onset | Comments | | | Date | | + +--------+ + | Results, Pathology | 08/22/ | Egd for DOS 08/05/2018 | | | 2018 | | + +--------+ + Encounter Details +--------+ + + + + | Date | Type | Department | Care Team | Description | +--------+ + + + + | 08/22/ | Telephone | [facility] [place] | [place] MD | Results, Pathology | | 2018 | | GASTROENTEROLOGY | [address], [place] | (Egd for DOS | | | | [address] | [address] [place], [place] | 08/05/2018) | | | | [address] [place], [place] | [address] | | | | | [address] | | | | | | [phone] | | | +--------+ + + + [...] | + +---+---+---+ + + | Comments: 3 cigs daily | + + + + [...] this encounter Miscellaneous Notes Telephone Encounter - Jennifer Tai CMA - 08/22/2018 11:32 AM PSTTried calling patient t o give her the pathology results for the Egd done on 08/05/2018, but her [employer] number stat es it is a restricted number, and no message can be left. Per Dr. [place] the H.pylori was neg ative, the biopsies were all with in normal limits, and patient needs a Gastric Emptying Xavier dy done. Dr. [place]'s nurse had sent a message through [employer] back on 08/14/2018.Electronica lly signed by Jennifer Tai CMA at 08/22/2018 11:35 AM PSTdocumented in this encounter Plan of Treatment Not on filedocumented as of this encounter Visit Diagnoses Not on filedocumented in this encounter"
--- OUTSIDE RECORDS SUMMARY | ~2020-05-24 | XMS | Encounter Summary ---
Demographics + + + | Address | [facility] [address] | | | [place] [address] | + + + | Home Phone | | + + + | Preferred Language | Unknown | + + + | Marital Status | Single | + + + | Buddhism Affiliation | 1041 | + + + | Race | Unknown | + + + | Ethnic Group | or | + + + Author + + + | Author | [facility] | | | and [place] | + + + | Organization | [facility] | [...] [place], [place] | | | | | [address] | | + + + + + | Amy Schneider | ECON | [address] | | | | | [place], [place] | | | | | [address] | | + + + + + | Alisha Schneider | ECON | Unknown | | + + + + + Care Team Providers + +------+ + | Care Boiler Fireman Name | Role | Phone | + +------+ + PCP | Unavailable | + +------+ + Encounter Details +--------+ + + + + | Date | Type | Department | Care Team | Description | +--------+ + + + + | 04/19/ | Hospital | [facility] | | | | 2003 | Encounter | MED CTR XRAY [address] | | | | | | [address] | | | | | | [place] [address] | | | | | | [phone] | | | +--------+ + + + [...]
--- OUTSIDE RECORDS SUMMARY | ~2020-05-24 | XMS | Encounter Summary ---
Demographics + + + | Address | [address] | | | [place] [address] | + + + | Home Phone | | + + + | Preferred Language | Unknown | + + + | Marital Status | Single | + + + | Yarsanism Affiliation | [id number] | + + + | Race | Unknown | + + + | Ethnic Group | or | + + + Author + + + | Author | [facility] | | | and [place] | + + + | Organization | [facility] | | | and [...] [place], [place] | | | | | [address] | | + + + + + | Amy Schneider | ECON | [address] | | | | | [place], [place] | | | | | [address] | | + + + + + | Alisha Schneider | ECON | Unknown | | + + + + + Care Team Providers + +------+ + | Care Canine Service Instructor Trainer Name | Role | Phone | + +------+ + | Jet Chaney MD | PCP | | + +------+ + Reason for Referral Evaluate & Treat (Routine) +--------+ + + + + + | Status | Reason | Specialty | Diagnoses / | Referred By | Referred To | | | | | Procedures | Contact | Contact | +--------+ + + + + + | Closed | Specialty | Physical | Diagnoses | [facility] | | | | Services | Therapy | Chronic low | Jet Dempsey MD | PHYSICAL | | | Required | | back pain | [address] | THERAPY - | | | | | | [address] [facility] | [place] | | | | | | [facility] | [facility] | | | | | | [address] | [address] | | | | | | Phone: | ST | | | | | | [phone] | [facility] | | | | | | Fax: | [place], [place] | | | | | | [phone] | [address] | | | | | | | Phone: | | | | | | | [phone] | | | | | | | Fax: | | | | | | | [phone] | +--------+ + + + + + Reason for Visit + + + | Reason | Comments | + + + | Back Pain | | + + + | Results | | + + + Encounter Details +--------+---------+ + + + | Date | Type | Department | Care Team | Description | +--------+---------+ + + + | 12/01/ | Office | [facility] | Jet Chaney, | Chronic low back | | 2016 | Visit | [facility] | [address] | pain (Primary Dx); | | | | [address] | [place] | Chronic abdominal | | | | [place], [place] | [id number] | pain; Gastritis; | | | | [address] | | Tobacco abuse; Adult | | | | [phone] | | BMI 39.0-39.9 kg/sq | | | | | | m; Impaired glucose | | | | | | tolerance; Elevated | | | | | | liver enzymes | +--------+---------+ + + + Social History [...] + + + | Blood Pressure | 102/70 | 12/02/2015 1:38 PM | | | | | PDT | | + + + + + | Pulse | 90 | 12/02/2015 1:38 PM | | | | | PDT | | + + + + + | Temperature | 37 C (98.6 F) | 12/02/2015 1:38 PM | | | | | PDT | | + + + + + | Respiratory Rate | 16 | 12/02/2015 1:38 PM | | | | | PDT | | + + + + + | Oxygen Saturation | 98% | 12/02/2015 1:38 PM | | | | | PDT | | + + + + + | Inhaled Oxygen | - | - | | | Concentration | | | | + + + + + | Weight | 98.3 kg (216 lb 12.8 | 12/02/2015 1:38 PM | | | | oz) | PDT | | + + + + + | Height | 157.5 cm (5' 2") | 12/02/2015 1:38 PM | | | | | PDT | | + + + + + | Body Mass Index | 39.65 | 12/02/2015 1:38 PM | | | | | PDT | | + + + + + documented in this encounter Patient Instructions Patient Instructions Jet Chaney MD - 12/02/2015 2:07 PM PDTBP 102/70 mmHg | Pulse 9 0 | Temp(Src) 37 C (98.6 F) (Temporal) | Resp 16 | Ht 1.575 m (5' 2") | Wt 98.34 kg (216 lb 12.8 oz) | BMI 39.64 kg/m2 | SpO2 98% The best thing you can do for your health is quit smoking. The next best thing you can do for your health is lose weight. If you do not hear from [facility] by , please call my office. Start taking the omeprazole 30 minutes before breakfast to help the abdominal pain. Losing Weight (Cardiovascular) Excess weight is a major risk factor for heart disease. Losing weight may help keep your ar teries open so that your heart can get the oxygen-rich blood it needs. Weight loss can also help lower your blood pressure and reduce your risk for diabetes. All in all, losing weight makes you healthier. Calories and weight loss Calories are the fuel your body howe [...] activity to burn the other 250 calories. Walking2.5miles howe about 250 calories. Eat a variety of healthy foods to get the nutrients you need. Brisk activity is best Brisk activity gets your heart pumping faster and it makes it healthier. It s also a grea t way to burn calories. In fact, your body may keep burning calories for hours after you sto p a brisk activity: Begin by walking 10 minutes most days. Add more time and speed to your walk. Build up as you feel able. Aim for 3 to 4 sessions of aerobic exercise a week. Each session should last about 40 mi nutes and include moderate to vigorous physical activity. [id number] [employer] [address] [place] [address], [place] [address]. All righ ts reserved. This information is not intended as a substitute for professional medical care. Always follow your healthcare professional's instructions. Weight Management: Fact and Fiction Knowing the truth about losing weight can help you separate what works from what doesn t. Don t be taken in by expensive weight-loss fads like pills, herbs, and special foods that promise unbelievable results. There s no magic way to lose weight. If you have questions about weight loss, ask your health care provider. Fiction: The faster I lose weight, the better. Fact: Rapid weight loss is usually due to loss of water or muscle mass. What you re tryin g to get rid of is extra fat. Aim to losea 1/2 pound to 2pounds a week. Then you re mo re likely to lose fat rather than water or muscle. Fiction: Skipping meals will help me lose weight. Fact: When you skip meals, you don t give your body the energy it needs to work. Hunger m akes you more likely to overeat later on. It s best to spread your meals throughout the da y. Eat at least3 meals a day. Fiction: I can t start exercising until I lose weight. Fact: The sooner you start exercising the better. Exercise helps burn more calories, tone y our muscles, and keep your appetite in check. People who continue to exercise after they los e weight are more likely to keep the weight off. Fiction: The fewer calories I eat, the better. Fact: This seems like it should be true, but it s not. When you eat too few calories, you r body acts as if it s on a desert island. It thinks food is scarce, so it slows down your metabolism (how fast you burn calories) to save energy. By eating too few calories, you davey e it harder to lose weight. Fiction: Once I lose weight, I can go back to living the way I did before. Fact: Going back to your old eating habits and giving up exercise is a sure way to regain a ny weight you ve lost. The lifestyle changes that help you lose extra weight can also help keep it off. This is why you need to make realisticchanges you can stick with. Fiction: Low-fat and fat-free mean low-calorie. Fact: All foods, even fat-free ones, have calories. Eat too many calories and you ll gain weight. It Naomi to treat yourself to a fat-free cookie or 2. Just don t eat the whole box! [employer] [address] [place] [id number]. All righ ts reserved. This information is not intended as a substitute for professional medical care. Always follow your healthcare professional's instructions. Weight Management: Getting Started Healthy bodies come in all shapes and sizes. Not all bodies are made to be thin. For some p eople, a healthy weight is higher or lower than the average weight listed on weight charts. Your doctor can help you decide on a healthy weight for you. Reasons to lose weight Losing weight can help with some health problems, such as high blood pressure, heart diseas e, diabetes, and sleep apnea. You may also feel more energy. Set your long-term goal Your goal doesn't even have to be a specific weight. You may decide on a fitness goal (such asbeing able to walk 10 miles a week), or a health goal (such as lowering your blood pres sure). Choose a goal that is measurableand reasonable, so you know when you've reached it. A goal of reaching a BMI of less than 25 is not always reasonable (or possible). Make an action plan Habits don t change overnight. Setting your goals too high can leave you feeling discoura ged if you can t reach them. Be realistic. Choose1 or2 small changes you can make now. Set an action plan for how you are going to make these changes. When you can stick to this plan,keep makinga few more small changes. Taking small steps will help you stay on the p ath to success. Track your progress Write down your goals. Then, keep a [...] for what you do get done. Get support Encouragement from others can help make losing weight easier. Ask your family members and f riends for support. They may even want to join you. Also look to your doctor, registered titian, and skilled nursing facilities professional for help. Your local hospital can give you more information about nutrition, exercise, and weight loss. [employer] [address] [place] [address]. All [facility] ts reserved. This information is not intended as a substitute for professional medical care. Always follow your healthcare professional's instructions. documented in this encounter Progress Notes Jet Chaney MD - 12/02/2015 1:48 PM PDTFormatting of this note might be different fr om the original. Subjective: Patient ID: Baudilio Schneider is a 35 y.o. female here for back pain, abdominal pain, impaired glucose tolerance. HPI She's had bilateral UQ pain for ~4 months. Does not radiate. Now she states it is worse w ith eating. She states she has constipation - a BM ever other day, not hard. Not associated with fever, N/V, diarrhea. She stopped the omeprazole during . She continues to have daily low back pain. It does not radiate. Fluctuates between 2-8/10 , currently 4/10. Worse with laying flat or bending over at waist. Tylenol helps a little. She takes ibuprofen rarely and it does help a little. PT not covered so she has never don e formal PT. No saddle paresthesias, leg paresthesias, bowel/bladder dysfunction, dysuria, hematuria. She's used the Mirena for a long time in between pregnancies so she is not sure if she has irregular periods. She states that it has taken her up to 2 years to get in past, though most recent was conceived within a few months. She does have "a little bit " of problems with facial hair. No alcohol or drug use. Patient's medications, allergies, past medical, surgical, social and family histories were obtained and reviewed as appropriate. Review of Systems See HPI BP 102/70 mmHg | Pulse 90 | Temp(Src) 37 C (98.6 F) (Temporal) | Resp 16 | Ht 1.575 m ( 5' 2") | Wt 98.34 kg (216 lb 12.8 oz) | BMI 39.64 kg/m2 | SpO2 98% Objective: Physical Exam Constitutional: Very pleasant, obese, NAD Neck: Neck supple. No thyromegaly present. Cardiovascular: Normal rate, regular rhythm, normal heart sounds and intact distal pulses. Exam reveals no gallop and no friction rub. No murmur heard. Pulmonary/Chest: Breath sounds normal. No respiratory distress. She has no wheezes. She has no rales. Abdominal: Soft. She exhibits no distension and no mass. Tenderness: Mild upper abdominal t enderness even to light touch. There is no rebound and no guarding. Musculoskeletal: She exhibits no edema. Symmetric 5/5 LE strength bilaterally. Able to walk on toes, heels, squat Lymphadenopathy: She has no cervical adenopathy. Neurological: Patella 1+ symmetric Skin: No obvious facial hair. Hospital Outpatient Visit on 11/13/2015 Component Date Value Ref Range Status Glucose, Fasting 11/13/2015 100 70-109 mg/dL Final GLUCOSE,1HR 11/13/2015 174* 70-109 mg/dL Final GLUCOSE 2 HR 11/13/2015 155* 70-109 mg/dL Final Hospital Outpatient Visit on 11/12/2015 Component Date Value Ref Range Status Hemoglobin A1c 11/12/2015 5.8 4.3-6.0 % Final Estimated Average Glucose 11/12/2015 120 Final NA 11/12/2015 140 136-149 mmol/L Final K 11/12/2015 4.0 3.5-5.1 mmol/L Final CL 11/12/2015 103 98-109 mmol/L Final CO2 11/12/2015 29 24-31 mmol/L Final ANION GAP 11/12/2015 8 3-16 mmol/L Final GLUCOSE 11/12/2015 105 70-109 mg/dL Final BUN 11/12/2015 6* 7-18 mg/dL Final Creatinine, Serum/Plasma 11/12/2015 0.63 0.60-1.30 mg/dL Final eGFR if not 11/12/2015 >60 >=60 mL/min/1.73m2 Final GLOMERULAR FILTRATION RATE,ESTIMATED mL/min/1.73m2 Less than 60 Chronic kidney disease,if found over a 3-month period. Less than 15 Kidney failure For Americans,multiply the calculated GFR by 1.21. CALCIUM 11/12/2015 9.1 8.3-10.5 mg/dL Final ALBUMIN 11/12/2015 3.9 3.2-5.0 g/dL Final BILIRUBIN TOTAL 11/12/2015 0.7 0.1-1.5 mg/dL Final Total protein 11/12/2015 6.4 6.0-7.8 g/dL Final AST 11/12/2015 25 10-42 U/L Final ALT 11/12/2015 52* 6-45 U/L Final ALK PHOS 11/12/2015 56 40-110 U/L Final GLOBULIN 11/12/2015 2.5 Final Albumin/Globulin ratio 11/12/2015 1.6 Final BUN/CREA 11/12/2015 9.5 Final Triglycerides 11/12/2015 170* 35-160 mg/dL Final CHOLESTEROL 11/12/2015 147 140-200 mg/dL Final HDL 11/12/2015 34 28-83 mg/dL Final New HDL Reference Range as of May 26, 2015 Values may be 10-20% lower with new, standardized method. Chol/HDL Ratio 11/12/2015 4.3 Final LDL, Calculated 11/12/2015 79 <=130 mg/dL Final TSH 11/12/2015 0.47 0.34-5.60 uIU/mL Final All TSH samples are screened using a 2nd Generation test, and are reflexed to a 3rd Genera tion test if indicated. WBC 11/12/2015 7.6 4.0-11.0 K/uL Final RBC 11/12/2015 5.01 3.70-5.20 M/uL Final Hgb 11/12/2015 15.5 11.5-16.0 g/dL Final Hct 11/12/2015 47.1* 34.0-47.0 % Final MCV 11/12/2015 94.1 83.0-101.0 fL Final MCH 11/12/2015 31.0 28.0-35.0 pg Final MCHC 11/12/2015 32.9 32.0-36.0 g/dL Final RDW-CV 11/12/2015 13.2 <15.0 % Final Platelet Count 11/12/2015 247 140-440 K/uL Final MPV 11/12/2015 9.9 Final % Neutrophils 11/12/2015 70.0 45.0-82.0 % Final % Lymphocytes 11/12/2015 17.2* 20.0-45.0 % Final % Monocytes 11/12/2015 9.9 4.0-12.0 % Final % Eosinophils 11/12/2015 2.3 0.0-5.0 % Final % Basophils 11/12/2015 0.6 0.0-1.0 % Final Absolute Neutrophils 11/12/2015 5.30 1.80-8.50 K/uL Final Absolute Lymphocytes 11/12/2015 1.30 0.60-3.20 K/uL Final Absolute Monocytes 11/12/2015 0.80 0.00-1.00 K/uL Final Absolute Eosinophils 11/12/2015 0.20 0.00-0.40 K/uL Final Absolute Basophils 11/12/2015 0.00 0.00-0.10 K/uL Final COLOR 11/12/2015 Yellow Light Yellow, Yellow, Straw Final CLARITY 11/12/2015 Cloudy Final PH UA 11/12/2015 7.0 5.0-8.0 Final Specific [place] 11/12/2015 1.025 1.001-1.030 Final PROTEIN UA 11/12/2015 100 mg/dL* Negative Final BLOOD UA 11/12/2015 Large* Negative Final GLUCOSE UA 11/12/2015 Negative Negative Final KETONES UA 11/12/2015 Negative Negative Final BILIRUBIN UA 11/12/2015 Negative Negative Final NITRITE UA 11/12/2015 Negative Negative Final LEUKOCYTES ESTERASE UA 11/12/2015 Small* Negative Final UROBILINOGEN UA 11/12/2015 Negative < 0.2 mg/dL, 1.0 mg/dL, 4.0 mg/dL, Normal, 1.0 E.U ./dL, 0.2 E.U./dL, 0.2 mg/dL, Negative, 1 mg/dL, <2.0 mg/dL Final WBC UA 11/12/2015 0-2 0-2 /HPF Final RBC UA 11/12/2015 25-50* 0-2 /HPF Final SQUAMOUS EPITHELIAL UA 11/12/2015 5-10* 0-2 /LPF Final BACTERIA UA 11/12/2015 Negative Negative /HPF Final Culture 11/12/2015 >100,000 CFU/ml Mixed Gram Positive Danielle Final Suggests contamination with urogenital or skin danielle. No further work-up to follow. MRI Lumbar Spine FINDINGS: Five non rib-bearing, lumbar type vertebrae are suggested on the coronal sequence. Marrow signal is normal. Tiny Schmorl's nodes are again visible within lower thoracic vertebral endplates. Lumbar vertebral height and alignment are maintained, without evident fracture, spondylolysis or spondylolisthesis. The conus medullaris is unremarkable, terminating at T12-L1. The imaged ovaries are again prominent in size, measuring up to approximately 4.4 cm bilaterally, and contain numerous small, peripherally oriented fluid signal follicles. The imaged left ovarian vein is subjectively prominent in caliber as well. Imaged intra-abdominal and paraspinal structures are otherwise unremarkable. The T10-11, T11-12, T12-L1, L1-2 and L2-3 levels are unremarkable on provided sagittal images through the region. Early facet hypertrophy and trace facet joint effusions are present at L3-4, L4-5 and L5-S1, without disc pathology or stenosis. Tiny synovial cysts are noted along the posterior margin of the right L4-5 facet joint. IMPRESSION - 1. EARLY MID TO LOWER LUMBAR FACET ARTHROPATHY WITHOUT DISC PATHOLOGY OR STENOSIS. 2. PROMINENT BILATERAL OVARIES CONTAINING NUMEROUS PERIPHERALLY ORIENTED FLUID SIGNAL FOLLICLES, SUSPICIOUS FOR POLYCYSTIC OVARY SYNDROME. CLINICAL AND LABORATORY CORRELATION ADVISED. Assessment: Baudilio was seen today for back pain and results. Diagnoses and all orders for this visit: Chronic low back pain: No concerning findings on MRI - Exercise, weight loss reviewed - Start PT - Educated on warning signs - Consider another trial of TCA or trying SNRI Orders: - [facility] - AMB Referral; Future Chronic abdominal pain: Chronic. Suspect gastritis is main cause of today's symptoms. Orders: - omeprazole (PRILOSEC) 20 mg capsule; Take 1 capsule by mouth every morning (before br eakfast). To help abdominal pain Tobacco abuse - Advised to quit Adult BMI 39.0-39.9 kg/sq m - Weight loss, diet, exercise reviewed Impaired glucose tolerance Orders: - Hemoglobin A1C; Future Elevated liver enzymes: Likely fatty liver as seen on US 3 years ago. S/P cholecystectomy . Previous celiac panel, viral hepatitis panel unremarkable Orders: - Comprehensive Metabolic Panel; Future - Ferritin; Future - Iron and Transferrin; Future FU: 6 weeks Prashanth Chaney MD Kemi Jaime LP N - 12/02/2015 1:37 PM PDTPatient is here for a follow-up on her back pain, labs and MRI re sults. documented in this encounter Plan of Treatment + + +--------+ + + | Name | Type | Priori | Associated Diagnoses | Order Schedule | | | | ty | | | + + +--------+ + + | [place] | Outpatient | Routin | Chronic low back | 1 Occurrences | | Clinic Physical | Referral | e | pain | starting 12/02/2015 | | Therapy - AMB | | | | until 12/11/2016 | | Referral | | | | | + + +--------+ + + documented as of this encounter Results Iron and Transferrin (02/25/2016 9:17 AM PDT) + +-------+ + + + | Component | Value | Ref Range | Performed | Pathologist | | | | | At | Signature | + +-------+ + + + | Iron | 121 | 40 - 150 ug/dL | [facility] | | | | | | [facility] | | | | | | [facility] | | | | | [facility] - | | | | | | LABORATORY | | + +-------+ + + + | TRANSFERRIN | 241.0 | 240.0 - 480.0 | [facility] | | | | | mg/dL | [facility] | | | | | | [facility] | | | | | | [facility] - | | | | | | LABORATORY | | + +-------+ + + + | TIBC | 337 | 235 - 425 ug/dL | [facility] | | | | | | [facility] | | [facility] | | | [facility] | | | | | | [facility] - | | | | | | LABORATORY | | + +-------+ + + + | % | 35.9 | 20.0 - 55.0 % | [facility] | | | SATURATION | | | [facility] | | | | | | [facility] | | | | | | C[facility] - | | | | | | LABORATORY | | + +-------+ + + + + + | Specimen | + + | Blood | + + + + + + + | Performing | Address | City/State/Zipcode | Phone Number | | Organization | | | | + + + + + | [facility] | [address] | [place], [place] | [phone] | | [facility] | | [address] | | | - LABORATORY | | | | + + + + + Ferritin (02/25/2016 9:17 AM PDT) + +-------+ + + + | Component | Value | Ref Range | Performed | Pathologist | | | | | At | Signature | + +-------+ + + + | FERRITIN | 56 | 11-<307 ng/mL | [facility] | | | | | | [facility] | | | | | | [facility] | | | | | | CENTER - | | | | | | LABORATORY | | + +-------+ + + + + + | Specimen | + + | Blood | + + + + + + + | Performing | Address | City/State/Zipcode | Phone Number | | Organization | | | | + + + + + | [facility] | [address] | [place] | [phone] | | [facility] | | [address] | | | - LABORATORY | | | | + + + + + Hemoglobin A1C (02/25/2016 9:17 AM PDT) + +---------+ + + + | Component | Value | Ref Range | Performed | Pathologist | | | | | At | Signature | + +---------+ + + + | Hemoglobin | 6.4 (H) | 4.3 - 6.0 % | [facility] | | | A1c | | | [facility] | | | | | | [facility]ICAL | | | | | | CENTER - | | | | | | LABORATORY | | + +---------+ + + + | Estimated | 137 | mg/dL | [facility] | | | Average | | | [facility] | | | Glucose | | | MEDICAL | | | | | | CENTER - | | | | | | LABORATORY | | + +---------+ + + + + + | Specimen | + + | Blood | + + + + + + + | Performing | Address | City/State/Zipcode | Phone Number | | Organization | | | | + + + + + | [facility] | [address] | [place] | [phone] | | [facility] | | [address] | | | - LABORATORY | | | | + + + + + Comprehensive Metabolic Panel (02/25/2016 9:17 AM PDT) + + + + + + | Component | Value | Ref Range | Performed | Pathologist | | | | | At | Signature | + + + + + + | Na | 139 | 136 - 149 | [facility] | | | | | mmol/L | [facility] | | | | | | MEDICAL | | | | | | CENTER - | | | | | | LABORATORY | | + + + + + + | K | 4.0 | 3.5 - 5.1 | [facility] | | | | | mmol/L | [facility] | | | | | | [facility] | | | | | | CENTER - | | | | | | LABORATORY | | + + + + + + | Cl | 104 | 98 - 109 mmol/L | [facility] | | | | | | [facility] | | | | | | [facility] | | | | | | CENTER - | | | | | | LABORATORY | | + + + + + + | CO2 | 27 | 24 - 31 mmol/L | [facility] | | | | | | [facility] | | | | | | [facility] | | | | | | CENTER - | | | | | | LABORATORY | | + + + + + + | Anion Gap | 8 | 3 - 16 mmol/L | [facility] | | | | | | [facility] | | | | | | [facility] | | | | | | [facility] - | | | | | | LABORATORY | | + + + + + + | Glucose | 105 | 70 - 109 mg/dL | [facility] | | | | | | [facility] | | | | | | [facility] | | | | | | [facility] - | | | | | | LABORATORY | | + + + + + + | BUN | 11 | 7 - 18 mg/dL | [facility] | | | | | | [facility] | | | | | | [facility] | | | | | | [facility] - | | | | | | LABORATORY | | + + + + + + | Creatinine | 0.63 | 0.60 - 1.30 | [facility] | | | | | mg/dL | [facility] | | | | | | MED[facility] | | | | | | CENTER - | | | | | | LABORATORY | | + + + + + + | eGFR, | >60Comment: GLOMERULAR | >=60 | [facility] | | | non- | FILTRATION | mL/min/1.73m2 | [facility] | | | [place] | RATE,ESTIMATED | | MEDICAL | | | | mL/min/1.64i1Fjug than | | CENTER - | | | | 60 Chronic kidney | | LABORATORY | | | | disease,if found over a | | | | | | 3-month period.Less than | | | | | | 15 Kidney failureFor | | | | | | | | | | | | Americans,multiply the | | | | | | calculated GFR by 1.21. | | | | | | | | | | + + + + + + | Calcium | 8.9 | 8.3 - 10.5 | [facility] | | | | | mg/dL | [facility] | | | | | | MEDICAL | | | | | | CENTER - | | | | | | LABORATORY | | + + + + + + | Albumin | 3.9 | 3.2 - 5.0 g/dL | [facility] | | | | | | [facility] | | | | | | [facility] | | | | | | [facility] - | | | | | | LABORATORY | | + + + + + + | Bilirubin | 0.8 | 0.1 - 1.5 mg/dL | [facility] | | | Total | | | [facility] | | | | | | [facility] | | | | | | CENTER - | | | | | | LABORATORY | | + + + + + + | Total | 6.6 | 6.0 - 7.8 g/dL | [facility] | | | Protein | | | [facility] | | | | | | MEDICAL | | | | | | CENTER - | | | | | | LABORATORY | | + + + + + + | AST | 7 (L) | 10 - 42 U/L | [facility] | | | | | | [facility] | | | | | | [facility] | | | | | | CENTER - | | | | | | LABORATORY | | + + + + + + | ALT | 46 (H) | 6 - 45 U/L | [facility] | | | | | | [facility] | | | | | | [facility] | | | | | | CENTER - | | | | | | LABORATORY | | + + + + + + | Alkaline | 63 | 40 - 110 U/L | [facility] | | | Phosphatase | | | [facility] | | | | | | MEDICAL | | | | | | CENTER - | | | | | | LABORATORY | | + + + + + + | Globulin | 2.7 | 2.1 - 3.8 g/dL | [facility] | | | | | | [facility] | | | | | | [facility] | | | | | | CENTER - | | | | | | LABORATORY | | + + + + + + | Albumin/Lynn | 1.4 | 0.8 - 2.0 | [facility] | | | bulin Ratio | | | [facility] | | | | | | MEDICAL | | | | | | CENTER - | | | | | | LABORATORY | | + + + + + + | BUN/Creatin | 17.5 | | [facility] | | | ine Ratio | | | [facility] | | | | | | MEDICAL | | | | | | CENTER - | | | | | | LABORATORY | | + + + + + + + + | Specimen | + + | Blood | + + + + + + + | Performing | Address | City/State/Zipcode | Phone Number | | Organization | | | | + + + + + | [facility] | [address] | [place] | [phone] | | [facility] | | [address] | | | - LABORATORY | | | | + + + + + documented in this encounter Visit Diagnoses + + | Diagnosis | + + | Chronic low back pain - Primary Lumbago | + + | Chronic abdominal pain Abdominal pain, unspecified site | + + | Gastritis Unspecified gastritis and gastroduodenitis without mention of hemorrhage | + + | Tobacco abuse Tobacco use disorder | + + | Adult BMI 39.0-39.9 kg/sq m Body Mass Index 39.0-39.9, adult | + + | Impaired glucose tolerance Impaired glucose tolerance test | + + | Elevated liver enzymes Nonspecific elevation of levels of transaminase or lactic acid | | dehydrogenase (LDH) | + + documented in this encounter
--- OUTSIDE RECORDS SUMMARY | ~2020-05-24 | XMS | Encounter Summary ---
Demographics + + + | Address | [facility] [address] | | | [place] [address] | + + + | Home Phone | | + + + | Preferred Language | Unknown | + + + | Marital Status | Single | + + + | Mandaeism Affiliation | [id number] | + + + | Race | Unknown | + + + | Ethnic Group | or | + + + Author + + + | Author | [facility] | | | and [place] | + + + | Organization | [facility] | | | and [place] [...] [place], [place] | | | | | [address] | | + + + + + | Amy Schneider | ECON | [address] | | | | | [place], [place] | | | | | [address] | | + + + + + | Alisha Schneider | ECON | Unknown | | + + + + + Care Team Providers + +------+ + | Care Hand I Blocker Name | Role | Phone | + +------+ + | Jet Chaney MD | PCP | | + +------+ + Reason for Visit +---------+--------+ + | Reason | Onset | Comments | | | Date | | +---------+--------+ + | Results | 01/23/ | | | | 2019 | | +---------+--------+ + Encounter Details +--------+ + + + + | Date | Type | Department | Care Team | Description | +--------+ + + + + | 01/23/ | Telephone | [facility] | Jet Chaney, | Results | | 2018 | | [facility] [place] | [address] | | | | | [address] | [place] | | | | | [place] | [address] | | | | | [address] | | | | | | [phone] | | | +--------+ + + + [...] this encounter Miscellaneous Notes Telephone Encounter - Tamar Lugo RN - 01/26/2019 11:23 AM PDTPatient returns call. Relayed Med's message. Patient verbalized understanding. Recall entered. elephone Jennifer Valle CMA - 01/26/2019 9:45 AM PDTCalled pt and left message to call back elephone Roxana Don LPN - 01/23/2019 9:33 AM PDTCalled and left a voicemail message for jaime talbert to call back. elephone Encounter - Roxana Lucio LPN - 01/23/2019 7:35 AM PDT----- Message from JUVENCIO Levy at 01/23/2019 6:09 PDT ----- Please contact patient/guardian about message below: Renal ultrasound shows no ongoing kidney swelling. Kidney stones previously seen on CT from December 22 not visualized on ultrasound. There is a 6 mm nonspecific structure in the upper left kidney. Recommend repeat ultrasoun d in 6 months. Please enter recall. documented in this encounter Plan of Treatment Not on filedocumented as of this encounter Visit Diagnoses Not on filedocumented in this encounter"
--- OUTSIDE RECORDS SUMMARY | ~2020-05-24 | XMS | Encounter Summary ---
Demographics + + + | Address | [facility] | | | [place] [address] | + + + | Home Phone | | + + + | Preferred Language | Unknown | + + + | Marital Status | Single | + + + | Spiritism Affiliation | 1041 | + + + | Race | Unknown | + + + | Ethnic Group | or | + + + Author + + + | Author | [facility] | | | and [place] | + + + | Organization | [facility] | | | and [place] [...] [place], [place] | | | | | [address] | | + + + + + | Amy Schneider | ECON | [address] | | | | | [place], [place] | | | | | [address] | | + + + + + | Alisha Schneider | ECON | Unknown | | + + + + + Care Team Providers + +------+ + | Care Boiler Room Helper Name | Role | Phone | + +------+ + | Jet Chaney MD | PCP | | + +------+ + Reason for Visit Auth/Cert +--------+--------+ + + + + | Status | Reason | Specialty | Diagnoses / | Referred By | Referred To | | | | | Procedures | Contact | Contact | +--------+--------+ + + + + | | | | Diagnoses | | | | | | | Dysphagia, | | | | | | | unspecified | | | | | | | Epigastric | | | | | | | pain | | | | | | | Dysphagia, | | | | | | | unspecified | | | | | | | [R13.10], | | | | | | | Epigastric | | | | | | | pain | | | | | | | [R10.13] | | | | | | | Procedures | | | | | | | GA | | | | | | | ESOPHAGOGAST | | | | | | | RODUODENOSCO | | | | | | | PY TRANSORAL | | | | | | | DIAGNOSTIC | | | | | | | EGD | | | +--------+--------+ + + + + Encounter Details +--------+---------+ + + + | Date | Type | Department | Care Team | Description | +--------+---------+ + + + | 08/28/ | Surgery | [facility] | Hill [place] MD | EGD | | 2016 | | [facility] | [address], [place] | | | | | [address] | [address] | | | | | [place] | [address] | | | | | [address] | | | | | | [phone] | | | +--------+---------+ + + + Social History + +-------+ +--------+------+ | Tobacco Use | Types | Packs/Day | Years | Date | | | | | Used | | + +-------+ +--------+------+ | Light Tobacco Smoker | | | 0.3 | | + +-------+ +--------+------+ + +---+---+---+ | Smokeless Tobacco: | | | | | Never Used | | | | + +---+---+---+ + + | Comments: 2 cigarettes daily | + + + + +---------+ [...] + + + | Blood Pressure | 109/83 | 08/28/2016 11:10 AM | | | | | PST | | + + + + + | Pulse | 69 | 08/28/2016 11:10 AM | | | | | PST | | + + + + + | Temperature | 37.1 C (98.8 F) | 08/28/2016 10:04 AM | | | | | PST | | + + + + + | Respiratory Rate | 15 | 08/28/2016 11:10 AM | | | | | PST | | + + + + + | Oxygen Saturation | 99% | 08/28/2016 11:10 AM | | | | | PST | | + + + + + | Inhaled Oxygen | - | - | | | Concentration | | | | + + + + + | Weight | 90.9 kg (200 lb 8 | 08/28/2016 10:04 AM | | | | oz) | PST | | + + + + + | Height | 157.5 cm (5' 2") | 08/28/2016 10:04 AM | | | | | PST | | + + + + + | Body Mass Index | 36.67 | 08/28/2016 10:04 AM | | | | | PST | | + + + + + documented in this encounter Discharge Instructions Instructions June Samano RN - 08/28/2016 Gastritis (Adult) Gastritis isinflammation andirritation of the stomach lining.It can be present for a short time (acute) or be long lasting (chronic). Gastritis is often caused by infection with bacteria calledH pylori.More than a third of people in the [place] have this bacteria in the ir bodies. In many cases,H pyloricauses no problems or symptoms. In some people, though, the infection irritates the stomach lining and causes gastritis. Other causes of stomach ir ritation include drinking alcohol or taking pain-relieving medicines called NSAIDs (such as aspirin or ibuprofen). Symptoms of gastritis can include: Abdominal pain or bloating Loss of appetite Nausea or vomiting Vomiting blood or having black stools Feeling more tired than usual An inflamed and irritated stomach lining is more likely to develop a sore called an ulcer. To help prevent this, gastritis should be treated. Home care If needed, medicines may be prescribed. If you haveH pyloriinfection, treating it will likely relieve your symptoms. Other changes can help reduce stomach irritation and help it h eal. If you have been prescribed medicines forH pyloriinfection, take them as directed. T murphy all of the medicine until it is finished or your healthcare provider tells you to stop, even if you feel better. Your healthcare provider may recommend avoiding NSAIDs. If you take daily aspirin for yo ur heart or other medical reasons, do not stop without talking to your healthcare provider f irst. Avoid drinking alcohol. Stop smoking. Smoking can irritate the stomach and delay healing. As much as possible, s doris away from second hand smoke. Follow-up care Follow up with your healthcare provider, or as advised by our staff. Testing may be needed to check for inflammation or an ulcer. When to seek medical advice Call your healthcare provider for any of the following: Stomach pain that gets worse or moves to the lower right abdomen (appendix area) Chest pain that appears or gets worse, or spreads to the back, neck, shoulder, or arm Frequent vomiting (can t keep down liquids) Blood in the stool or vomit (red or black in color) Feeling weak or dizzy Fever of 100.4F (38C) or higher, or as directed by your healthcare provider [facility]. [address] [place] [address]. All righ ts reserved. This information is not intended as a substitute for professional medical care. Always follow your healthcare professional's instructions. Tips to Control Acid Reflux To control acid reflux, you ll need to make some basic diet and lifestyle changes. The si mple steps outlined below may be all you ll need to ease discomfort. Watch what you eat Avoid fatty foods and spicy foods. Eat fewer acidic foods, such as citrus and tomato-based foods. These can increase sympto ms. Limit drinking alcohol, caffeine, and fizzy beverages. All increase acid reflux. Try limiting chocolate, peppermint, and spearmint.These can worsen acid reflux in some people. Watch when you eat Avoid lying down [id number] after eating. Do not snack before going to bed. Raise your head Raising your head and upper body by 4 to 6 incheshelps limit reflux when you re lying d own. Put blocks under the head of your bed frame to raise it. Other changes Lose weight, if you need to Don t exercise near bedtime Avoid tight-fitting clothes Limit aspirin and ibuprofen Stop smoking [facility]. [address] [place], [place] [id number]. All righ ts reserved. This information is not intended as a substitute for professional medical care. Always follow your healthcare professional's instructions. documented in this encounter Medications at Time of Discharge [...] + +---------+ + + | levothyroxine | TAKE ONE TABLET BY | 90 | 0 | 04/06/20 | | | (SYNTHROID, | MOUTH ONE TIME DAILY | tablet | | 15 | 7 | | LEVOTHROID) 75 MCG | | | | | | | tablet | | | | | | + + + +---------+ + + | meloxicam (MOBIC) | Take one tablet by | 30 | 1 | 07/04/20 | | | 15 mg tablet | mouth daily with | tablet | | 16 | 7 | | | food | | | | | + + + +---------+ + + | Multiple | Take 1 tablet by | | 0 | | | | Vitamins-Minerals | mouth Daily. | | | | 0 | | (WOMENS ONE DAILY | | | | | | | PO) | | | | | | + + + +---------+ + + | omeprazole | Take 1 capsule by | 30 | 2 | 03/02/20 | | | (PRILOSEC) 40 MG | mouth every morning | capsule | | 16 | 6 | | capsuleIndications: | (before breakfast). | | | | | | Gastritis, Chronic | To help abdominal | | | | | | abdominal pain | pain | | | | | + + + +---------+ + + | UNABLE TO FIND | 20 g. Med Name: | | 0 | | | | | Protein | | | | 8 | + + + +---------+ + + documented as of this encounter H&P Notes Hill [place] MD - 08/28/2016 11:09 AM PSTThe patient has no questions consent form is si gned we'll proceed with upper endoscopy for evaluation of abdominal pain as a 68 O2 sat 100% blood pressure we'll proceed with upper endoscopy Hill Bal MD - 08/13/2016 4:33 PM PSTFormatting of th is note might be different from the original. Subjective: Patient ID: Baudilio Schneider is a 35 y.o. female. HPI Comments: Patient is seen for evaluation of abdominal pain. Records are reviewed The patient states that the pain began approximately a year ago. However reviewing the [facility] rt show she had evaluation for abdominal pain details unclear in 2012 and also 2013. Patient complains of epigastric pain. She states it's a stabbing type pain without radiati on. It's in the epigastrium. The pain lasted approximately 20 minutes. She has nothing in particular to relieve the pain. Since being increased when she eats but no particular meal or size of the meal makes a difference. There is no particular foods that make it worse. She states milk products spicy foods caffeine (one cup a day of coffee) or other foods have any effect on her symptoms. She has no nocturnal symptoms. She has minimal symptoms of ear ly progresses satiety denies weight loss. There is a family history of an uncle having stom ach cancer. Patient reports that when she lays on her left side she has left upper quadrant pain. She denies symptoms of reflux. The patient's symptoms have not improved when increa sing omeprazole to 20 mg twice a day. The patient also complains of abdominal bloating in the epigastrium and right upper quadran t area. It occurs anytime she eats or even drinks fluids. Can last all day. She does not associated with belching. It may decrease with evacuation. Her normal pattern is one stool every other day or every third day. Her abdominal bloating seems to decrease with evacuati on. She denies blood or mucus in the stools. She does have dysphagia and tightness in her upper throat has had no episodes of esophageal obstruction. The patient also has mild elevation of AST and ALT. Ultrasound in 2012 showed steatosis. The patient is status post cholecystectomy. The patient previously was on nortriptyline for back pain. She's noticed no change in her abdominal symptomatology she seek quit nortripty line in June Workup in the past has included a normal right upper quadrant ultrasound done in 2012 lipas e TTG antibodies have been negative. She has a history of ovarian cysts but transvaginal ul trasound was negative in 2013 CT scan done. 2014 showed simply a liver cyst. Upper endosco py in 2013 showed minimal distal esophagitis a week and lower esophageal sphincter muscle. There is gastritis H. pylori biopsy was negative esophageal biopsies had one biopsies positi ve for Hodges's metaplasia. Abdominal Pain Associated symptoms include arthralgias and constipation. Filed Vitals: 08/13/16 1601 BP: 116/68 Pulse: 86 Resp: 16 PainSc: 0 - No pain No Known Allergies Past Medical History Diagnosis Date Allergy Hypothyroid Lower back pain Hand numbness Hurts daily Insomnia Thyroid disorder GERD (gastroesophageal reflux disease) Vitamin D deficiency Seasonal allergies Obesity Stress Gallbladder disease Depression Dysplasia of cervix, low grade (CHRISTIAN 1) 08/15/201203/27: Colposcopy 2:00 position showed CHRISTIAN 1 Chronic midline low back pain without sciatica Cervical radicular pain Chest wall pain Prediabetes Chronic abdominal pain Tobacco abuse 02/23/2014 Past Surgical History Procedure Laterality Date Tonsillectomy 2009 Cholecystectomy 2000 Endoscopy 09/21/13 negative for h.pylori,negative for atypia repeat in 3 years. Family History Problem Relation Age of Onset Diabetes Father High blood pressure Father Kidney disease Father High blood pressure Sister Kidney disease Paternal Grandfather Depression Sister Colon cancer Paternal Uncle Breast cancer Neg Hx Coronary artery disease Father 62 No Known Problems Mother No Known Problems Paternal Grandmother No Known Problems Maternal Grandfather No Known Problems Maternal Grandmother No Known Problems Daughter 2 daughters No Known Problems Son 3 sons Social History Social History Marital Status: Single Spouse Name: Luke Number of Children: 5 Years of Education: N/A Occupational History [employer] in [place] Social History Main Topics Smoking status: Light Tobacco Smoker -- .3 years Smokeless tobacco: Never Used Comment: 2 cigarettes daily Alcohol Use: No Drug Use: No Sexual Activity: Partners: Male Comment: Mirena IUD 09/2015 Other Topics Concern None Social History Narrative Marital Status: . 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 HENT: Positive for trouble swallowing. Eyes: Positive for pain. Gastrointestinal: Positive for abdominal pain, constipation and abdominal distention. Musculoskeletal: Positive for back pain and arthralgias. Neurological: Positive for weakness. All other systems reviewed and are negative. Objective: Physical Exam Constitutional: She is oriented to person, place, and time. She appears well-developed and well-nourished. No distress. HENT: Head: Normocephalic and atraumatic. Right Ear: External ear normal. Left Ear: External ear normal. Nose: Nose normal. Mouth/Throat: Oropharynx is clear and moist. No oropharyngeal exudate. Eyes: Conjunctivae and EOM are normal. Pupils are equal, round, and reactive to light. Righ t eye exhibits no discharge. Left eye exhibits no discharge. No scleral icterus. Neck: Normal range of motion. Neck supple. No JVD present. No tracheal deviation present. Cardiovascular: Normal rate, regular rhythm, normal heart sounds and intact distal pulses. Exam reveals no gallop and no friction rub. No murmur heard. Pulmonary/Chest: Effort normal and breath sounds normal. No respiratory distress. She has n o wheezes. She has no rales. She exhibits no tenderness. Abdominal: Soft. Bowel sounds are normal. She exhibits no distension and no mass. There is no tenderness. There is no rebound and no guarding. Musculoskeletal: Normal range of motion. She exhibits no edema or tenderness. Lymphadenopathy: She has no cervical adenopathy. Neurological: She is alert and oriented to person, place, and time. No cranial nerve defici t. She exhibits normal muscle tone. Coordination normal. Skin: Skin is warm and dry. No rash noted. She is not diaphoretic. No erythema. No pallor. Psychiatric: She has a normal mood and affect. Her behavior is normal. Judgment and thought content normal. Nursing note and vitals reviewed. Assessment: Epigastric pain questionable gastritis gastroparesis or nonulcerogenic dyspepsia History of gastroesophageal reflux with minimal changes of Hodges's metaplasia Dysphagia etiology and significance unclear doubt esophageal stricture associated with long -term reflux or eosinophilic esophagitis History of upper abdominal distention associated with obstipation questionable constipated variety of IBS History of mild elevation of transaminases associated with steatosis of the liver confirmed on ultrasound Plan: Upper endoscopy possible dilatation and biopsies benefits and risks of the procedure is exp lained to the patient she concurs and she will be scheduled as an outpatient at her [facility] Depending on endoscopic findings the patient may be treated for obstipation to see if that helps her overall symptomatology i.e. generalized decreased in gastrointestinal motility Portions of this report were transcribed using voice recognition software. Every effort wa s made to ensure accuracy; however, inadvertent computerized malt house loader errors may be pre sent. documented in this enc ounter Miscellaneous Notes Op Note - Hill [place] MD - 08/28/2016 11:27 AM PSTUpper endoscopy was remarkable for an irregular Z line at 36 cm from the incisors. NBI showed possible Hodges's metaplasia. Mu ltiple biopsies were obtained. There was some antral gastritis with 2 minor erosions in the antrum. H. pylori biopsy was obtained. There appeared to be some duodenal mucosal atrophy in the second and third portion of the duodenum as such biopsies were obtained for celiac s prue. Patient will continue on her proton pump inhibitor will try to decrease her nonsteroi chetan use meloxicam await biopsy results follow an antireflux regimen -C Instructions Provation - Hill [place] MD - 08/28/2016 11:00 AM PSTDischarge Instructions for Upper Endoscopy Patient: Baudilio Schneider : 1980 Acct: [id number] Exam Date: Sunday, August 28, 2016 Doctor: Hill [place] MD The chances of difficulty following this procedure are minimal. The following instruction s will assist you in your recovery. 1. Do Not eat or drink anything for 1 hour. Try sips of water first. If tolerated, resu me your regular diet or one recommended by your physician. 2. Do not drive, operate kali kelli, make critical decisions, or do activities that require coordination or balance for 24 hours. 3. You may experience a sore throat for 24 - 48 hours. You may use throat lozenges or ga rgle with warm salt water to relieve the discomfort. 4. Because air was put into your stom ach druing the procedure, you may experience some belching. 5. Do not use any medication containing aspirin for 10 days, unless otherwise directed by your physician. 6. Sometimes the medications given to you druing the exam can aggravate the veins. The c hemical irritation can cause inflammation or pain along the arm with redness, swelling and warmth. This does not mean there is an infection. You can treat the affected area by appl darian warm, wet compresses (towels) 4 times a day for 20 minutes at a time until inflammatio n is resolved 7. Report to your doctor: Chills and/or fever over 100 Persistent vomiting or vomiting with blood/nasal regurgitation Severe abdominal pain, othe r than gas cramps Severe chest pain Black, tarry stools You may reach your physician at Work: Ext [phone]. If unable to reach your p darrion, call [facility] Emergency Department at Ext. [phone] Your doctor recommends these additional instructions: You have a contact number available for emergencies. The signs and symptoms of potential delayed complications were discussed with you. You may return to normal activities tomorro w. Written discharge instructions were provided to you. You are being discharged to home. Resume your previous diet today. Follow an antireflux regimen indefinitely. This includes: - Do not lie down for at least 3 to 4 hours after meals. - Raise the head of the bed 4 to 6 inches. - Decrease excess weight. - Avoid citrus juices and other acidic foods, alcohol, chocolate, mints, coffee and ot her caffeinated beverages, carbonated beverages, fatty and fried foods. - Avoid tight-fitting clothing. - Avoid cigarettes and other tobacco products. Continue your present medications. We are waiting for your pathology results. Return to your primary care physician as previously scheduled. Telephone your GI clinic fo r pathology results in one week. These instructions have been explained to the patient and/ or escort. A copy has been given to the patient/escort. Nurse Cammie e Patient Signature Escort Signatu re Date Hill [place] MD 08/28/2016 11:34:43 AM This report has been signed electronically.Electronically signed by Hill [place] MD at 11:35 AM PSTdocumented in this encounter Plan of Treatment Not on filedocumented as of this encounter Procedures + +--------+ + + + | Procedure Name | Priori | Date/Time | Associated Diagnosis | Comments | | | ty | | | | + +--------+ + + + | HELICOBACTER PYLORI | Routin | 08/28/2016 | | Results for this | | BIOPSY | e | 11:15 AM | | procedure are in the | | | | PST | | results section. | + +--------+ + + + | EGD | | 08/28/2016 | Dysphagia, | | | | | 11:06 AM | unspecified | | | | | PST | Epigastric pain | | + +--------+ + + + | EGD | Routin | 08/28/2016 | | Results for this | | | e | 11:00 AM | | procedure are in the | | | | PST | | results section. | + +--------+ + + + | SURGICAL PATHOLOGY | Routin | 08/28/2016 | | Results for this | | EXAM | e | 12:00 AM | | procedure are in the | | | | PST | | results section. | + +--------+ + + + documented in this encounter Results Helicobactor pylori Biopsy (08/28/2016 11:15 AM PST) + + + + + + | Component | Value | Ref Range | Performed | Pathologist | | | | | At | Signature | + + + + + + | Helicobacte | Negative | Negative | [facility] | | | r pylori Ag | | | [facility] | [facility] - | | | | | | LAB[facility]ATORY | | + + + + + + + + | Specimen | + + | Tissue - Entire | | pyloric antrum (body | | structure) | + + + + + + + | Performing | Address | City/State/Zipcode | Phone Number | | Organization | | | | + + + + + | [facility] | [address] | [place] | [phone] | | [facility] | | [address] | | | - LABORATORY | | | | + + + + + EGD (08/28/2016 11:00 AM PST) + + | Specimen | + + | | + + + + -+ | Narrative | Performed At | + + -+ | | [facility] | | GastroenterologyPatient Name: Baudilio Peña Date: 08/28/2016 | [facility] | | 11:00 AMMRN: [id number] #: [id number] of : | | | 1980Admit Type: AmbulatoryAge: 36Room: [facility] 01Gender: FemaleNote | | | Status: FinalizedAttending MD: Hill [place] , MDProcedure: | | | Upper GI endoscopyIndications: Epigastric abdominal pain, | | | Suspected esophageal reflux, For therapy | | | of esophageal refluxProviders: Hill [place] MD, Maryanne | | | THO Leonard, Myla Puente RN, Carolina | | | OAlex, TechnicianReferring MD: Jet Chaney MD | | | (Referring MD)Medicines: Midazolam 2 mg IV, Meperidine 100 | | | mg IV, Cetacaine spray, Oxygen 4 | | | liters/min nasocannulaComplications: No immediate complications. | | | Estimated blood loss: Minimal.Procedure: Pre-Anesthesia | | | Assessment: - Prior to the procedure, a History and Physical was | | | performed, and patient medications, allergies and | | | sensitivities were reviewed. The patient's tolerance of | | | previous anesthesia was reviewed. - Prior to the procedure, a | | | History and Physical was performed, and patient medications and | | | allergies were reviewed. The patient is competent. The risks | | | and benefits of the procedure and the sedation options and | | | risks were discussed with the patient. All questions were | | | answered and informed consent was obtained. Patient identification and | | | proposed procedure were verified by the physician, the nurse | | | and the certified technician in the endoscopy suite. Mental Status | | | Examination: alert and oriented. Airway Examination: normal | | | oropharyngeal airway and neck mobility and Mallampati Class III | | | (part of the uvula and soft palate visualized). Prophylactic | | | Antibiotics: The patient does not require prophylactic | | | antibiotics. Prior Anticoagulants: The patient has taken no | | | previous anticoagulant or antiplatelet agents. ASA Grade Assessment: | | | II - A patient with mild systemic disease. After reviewing the | | | risks and benefits, the patient was deemed in satisfactory | | | condition to undergo the procedure. The anesthesia plan was to | | | use moderate sedation / analgesia (conscious sedation). | | | Immediately prior to administration of medications, the patient | | | was re-assessed for adequacy to receive sedatives. The heart | | | rate, respiratory rate, oxygen saturations, blood pressure, | | | adequacy of pulmonary ventilation, and response to care were | | | monitored throughout the procedure. The physical status of the patient | | | was re-assessed after the procedure. - After reviewing | | | the risks and benefits, the patient was deemed in satisfactory | | | condition to undergo the procedure. - The anesthesia plan was to | | | use moderate sedation/analgesia (conscious sedation). - | | | Immediately prior to administration of medications, the patient was | | | re-assessed for adequacy to receive sedatives. - The heart | | | rate, respiratory rate, oxygen saturations, blood pressure, | | | adequacy of pulmonary ventilation, and response to care were monitored | | | throughout the procedure. - The physical status of the | | | patient was re-assessed after the procedure. After obtaining | | | informed consent, the endoscope was passed under direct vision. | | | Throughout the procedure, the patient's blood pressure, pulse, | | | and oxygen saturations were monitored continuously. The Endoscope was | | | introduced through the mouth, and advanced to the third part | | | of duodenum. The upper GI endoscopy was accomplished without | | | difficulty. The patient tolerated the procedure well.Findings: | | | The cricopharyngeus, upper third of the esophagus, middle third | | | of the esophagus, lower third of the esophagus and lower | | | esophageal sphincter were normal. The Z-line was | | | irregular and was found 36 cm from the incisors. Biopsies were | | | taken with a cold forceps for histology. Verification of patient | | | identification for the specimen was done. Estimated blood loss was | | | minimal. A few localized, small non-bleeding erosions | | | were found in the gastric antrum. There were no stigmata of | | | recent bleeding. Biopsies were taken with a cold forceps for | | | Helicobacter pylori testing using CLOtest. Verification of | | | patient identification for the specimen was done. Estimated | | | blood loss was minimal. Diffuse atrophic mucosa was found in the | | | first part of the duodenum and in the second part of the | | | duodenum. Biopsies for histology were taken with a cold forceps | | | for for evaluation of celiac disease. Verification of patient | | | identification for the specimen was done. Estimated blood loss | | | was minimal. The duodenal bulb and 3rd part of the duodenum were | | | normal. The retroflexed view confirmed previous | | | findings,Impression: - Normal cricopharyngeus, upper third of | | | esophagus, middle third of esophagus, lower third of esophagus | | | and lower esophageal sphincter. - Z-line irregular, 36 cm from | | | the incisors. Biopsied. - Non-bleeding erosive gastropathy. | | | Biopsied. - Duodenal mucosal atrophy. Biopsied. - Normal | | | duodenal bulb and 3rd part of the duodenum. - The retroflexed | | | view confirmed previous findings,Recommendation: - Patient has a | | | contact number available for emergencies. The signs and | | | symptoms of potential delayed complications were discussed with the | | | patient. Return to normal activities tomorrow. Written discharge | | | instructions were provided to the patient. - Discharge | | | patient to home (ambulatory). - Resume previous diet today. | | | - Follow an antireflux regimen indefinitely. - Continue | | | present medications. - Await pathology results. - Return | | | to primary care physician as previously scheduled. - Telephone | | | GI clinic for pathology results in 1 week.[place] MD08/28/2016 | | | 11:34:43 AMThis report has been signed electronically.Number of | | | Addenda: 0Note Initiated On: 08/28/2016 11:00 AMTotal Procedure | | | Duration: 0 hours 9 minutes 43 seconds Scope In: 11:14:59 AMScope Out: | | | 11:24:42 AM [facility], [address] [place] [address] | | | [place] [address] | | | instructions were provided to the patient. | | | - Discharge patient to home (ambulatory). | | | - Resume previous diet today. | | | - Follow an antireflux regimen indefinitely. | | | - Continue present medications. | | | - Await pathology results. | | | - Return to primary care physician as previously scheduled. | | | - Telephone GI clinic for pathology results in 1 week. | | |Hill [place] MD | | |08/28/2016 11:34:43 AM | | |This report has been signed electronically. | | |Number of Addenda: 0 | | |Note Initiated On: 08/28/2016 11:00 AM | | |Total Procedure Duration: 0 hours 9 minutes 43 seconds | | |Scope In: 11:14:59 AM | | |Scope Out: 11:24:42 AM | | | [facility], [facility] [place], [place] | | | [address] | | + + -+ + +---------+ + + | Performing | Address | City/State/Zipcode | Phone Number | | Organization | | | | + +---------+ + + | [facility] | | | | + +---------+ + + Surgical Pathology Exam (08/28/2016 12:00 AM PST) + + | Specimen | + + | | + + + + + | Narrative | Performed At | + + + | SPECIMEN(S): A DUODENAL BIOPSY SPECIMEN(S): B ESOPHAGEAL BIOPSY | [facility] | | SPECIMEN SOURCE: A. DUODENAL BIOPSY B. ESOPHAGEAL BIOPSY | [facility] | | CLINICAL HISTORY: R13.10 (dysphagia, unspecified), R10.13 (epigastric | | | pain) MICROSCOPIC DESCRIPTION: Histologic sections of all | | | submitted blocks are examined by light microscopy. These findings, | | | together with the gross examination, support the pathologic diagnosis. | | | FINAL PATHOLOGIC DIAGNOSIS: A. Duodenal biopsy: - Benign | | | duodenal mucosa; negative for specific diagnostic abnormality. B. | | | Esophageal biopsy: - Gastroesophageal junction with reactive | | | epithelial features and mild chronic inflammation. - A very tiny | | | focus of intestinal metaplasia (2 glands) of uncertain significance | | | (see Comment). - Negative for dysplasia. COMMENT: Two small | | | glands contain several goblet-type cells, likely representing | | | intestinal metaplasia. The significance of these findings is | | | uncertain; clinical correlation is requested. JVR:[facility]:C2NR | | | GROSS DESCRIPTION: The specimen is received in two parts. A. The | | | specimen is labeled and designated "Schneider, Sochil, duodenal biopsy". | | | Received in formalin are six alonso colored tissue fragments, 0.15-0.4 | | | cm, all into (A1). B. The specimen is labeled and designated | | | "Schneider, Sochil, esophageal biopsy". Received in formalin are five | | | cream colored tissue fragments, 0.25-0.5 cm, all into (B1). | | | yt:JVR:[facility] PERFORMING LABORATORY: Tissue processing and slide | | | preparation were performed by [facility], [address] | | | [address], [place] [address] (Program Rep: Jorge Aldana M.D. | | | IA#: [id number]). Professional interpretation was performed by | | | [facility], [address], [place] [address] | | | (Program Rep: Jorge Aldana M.D.; HUNTER#: [id number]). | | | Diagnostician: Jorge Aldana MD Pathologist Electronically | | | Signed 08/29/2016 | | + + + + +---------+ + + | Performing | Address | City/State/Zipcode | Phone Number | | Organization | | | | + +---------+ + + | [facility] | | | | | [facility] | | | | + +---------+ + + documented in this encounter Visit Diagnoses + + | Diagnosis | + + | Dysphagia, unspecified | + + | Epigastric pain Abdominal pain, epigastric | + + documented in this encounter Admitting Diagnoses + + | Diagnosis | + + | Epigastric pain Abdominal pain, epigastric | + + documented in this encounter Administered Medications + +--------+ +---------+------+------+ | Medication Order | MAR | Action | Dose | Rate | Site | | | Action | Date | | | | + +--------+ +---------+------+------+ | benzocaine (HURRICAINE) 20% | Given | 08/28/20 | 1 spray | | | | spray PRN, Starting 08/28/16 | | 16 11:11 | | | | | at 1111 | | AM PST | | | | + +--------+ +---------+------+------+ +---+---+ | | | +---+---+ + +---------+ +---+-------+--------+ | lactated ringers (LR) infusion | New Bag | 08/28/20 | | 100 | Right | | at 100 mL/hr, Intravenous, | | 16 10:35 | | mL/hr | Arm | | CONTINUOUS, Starting 08/28/16 | | AM PST | | | | | at 1030, Pre-op | | | | | | + +---------+ +---+-------+--------+ +---+---+ | | | +---+---+ + +-------+ +--------+---+---+ | meperidine (DEMEROL) 100 mg/mL | Given | 08/28/20 | 100 mg | | | | injection PRN, Starting Tue | | 16 11:12 | | | | | 08/28/16 at 1112 | | AM PST | | | | + +-------+ +--------+---+---+ +---+---+ | | | +---+---+ + +-------+ +------+---+---+ | midazolam (VERSED) 5 mg/mL | Given | 08/28/20 | 1 mg | | | | injection PRN, Starting Tue | | 16 11:16 | | | | | 08/28/16 at 1114 | | AM PST | | | | + +-------+ +------+---+---+ +-------+ +------+---+---+ | Given | 08/28/20 | 1 mg | | | | | 16 11:14 | | | | | | AM PST | | | | +-------+ +------+---+---+ +---+---+ | | | +---+---+ documented in this encounter
--- OUTSIDE RECORDS SUMMARY | ~2020-05-24 | XMS | Encounter Summary ---
Demographics + + + | Address | [address] | | | [place] [address] | + + + | Home Phone [...] | Organization | [facility] | | | and [place] | [...] [place], [place] | | | | | [address] | | + + + + + | Amy Schneider | ECON | [address] | | | | | [place], [place] | | | | | [address] | | + + + + + | Alisha Schneider | ECON | Unknown | | + + + + + Care Team Providers + +------+ + | Care Knifeman Name | Role | Phone | + +------+ + | Dot Paredes MD | PCP | | + +------+ + Encounter Details +--------+ + + + + | Date | Type | Department | Care Team | Description | +--------+ + + + + | 03/22/ | Hospital | [facility] | | | | 2010 | Encounter | [facility] | | | | | | [address] | | | | | | [place] | | | | | | [address] | | | | | | [phone] | | | +--------+ + + + [...] | + +--------+ + + + | LIPID PROFILE | Routin | 03/22/2011 | | Results for this | | | e | 7:37 AM | | procedure are in the | | | | PDT | | results section. | + +--------+ + + + | TSH | Routin | 03/22/2011 | | Results for this | | | e | 7:37 AM | | procedure are in the | | | | PDT | | results section. | + +--------+ + + + documented in this encounter Results TSH (03/22/2011 7:37 AM PDT) + + + + + + | Component | Value | Ref Range | Performed | Pathologist | | | | | At | Signature | + + + + + + | TSH | 1.55Comment: Testing | 0.34 - 5.60 | [facility] | | | | performed on the [facility] | uIU/mL | [facility] | | | | [facility] | | MEDICAL | | | | Analyzer. | | CENTER - | | | | | | LABORATORY | | + + + + + + + + | Specimen | + + | | + + + + + + + | Performing | Address | City/State/Zipcode | Phone Number | | Organization | | | | + + + + + | [facility] | [address] | [place], [place] | [phone] | | [facility] | | [address] | | | - LABORATORY | | | | + + + + + | [facility] | [address] | [place] | | | [facility] | | [address] [place] [address] | | | - LABORATORY | | | | + + + + + Lipid Profile (03/22/2011 7:37 AM PDT) + + + + + + | Component | Value | Ref Range | Performed | Pathologist | | | | | At | Signature | + + + + + + | Triglycerid | 133 | 35 - 160 mg/dL | [facility] | | | es | | | [facility] | | | | | | MEDICAL | | | | | | CENTER - | | | | | | LABORATORY | | + + + + + + | Cholesterol | 137 (L) | 140 - 200 mg/dL | [facility] | | | | | | [facility] | | | | | | MEDICAL | | | | | | CENTER - | | | | | | LABORATORY | | + + + + + + | HDL | 36 | 29 - 89 mg/dL | [facility] | | | | | | [facility] | | | | | | MEDICAL | | | | | | CENTER - | | | | | | LABORATORY | | + + + + + + | LDL, | 74 | <130 mg/dL | [facility] | | | Calculated | | | [facility] | | | | | | MEDICAL | | | | | | CENTER - | | | | | | LABORATORY | | + + + + + + | Chol/HDL | 3.8Comment: | | [facility] | | | Ratio | | | [facility] | | | | | | MEDICAL | | | | ------- RISK CATEGORY: | | CENTER - | | | | CHOL/HDL * T.CHOL * LDL | | LABORATORY | | | | CHOL * HDL CHOL | | | | | | | | | | | | RATIO DESIRABLE: (M) | | | | | | 4.0-6.7 <200 | | | | | | <130 >50 | | | | | | (F) | | | | | | 3.7-4.2 BORDERLINE:(M) | | | | | | 6.7-7.4 200-240 | | | | | | 130-160 <45 | | | | | | (F) | | | | | | 4.2-5.5 HIGH RISK: (M) | | | | | | >7.4 >240 | | | | | | >160 <35 | | | | | | (F) | | | | | | >5.5 | | | | | | | | | | | | | | | | | | --------- | | | | + + + + + + + + | Specimen | + + | | + + + + + + + | Performing | Address | City/State/Zipcode | Phone Number | | Organization | | | | + + + + + | [facility] | [address] | [place] | [phone] | | [facility] | | [address] | | | - LABORATORY | | | | + + + + + | [facility] | [address] | [place] | | | [facility] | | [address] | | | - LABORATORY | | | | + + + + + documented in this encounter Visit Diagnoses Not on filedocumented in this encounter"
--- OUTSIDE RECORDS SUMMARY | ~2020-05-24 | XMS | Encounter Summary ---
Demographics + + + | Address | [facility] | | | [place] [address] | + + + | Home Phone | | + + + | Preferred Language | Unknown | + + + | Marital Status | Single | + + + | Yarsani Affiliation | 1041 | + + + | Race | Unknown | + + + | Ethnic Group | or | + + + Author + + + | Author | [facility] | | | and [place] | + + + | Organization | [facility] | | | and [...] [place], [place] | | | | | [address] | | + + + + + | Amy Schneider | ECON | [address] | | | | | [place], [place] | | | | | [address] | | + + + + + | Alisha Schneider | ECON | Unknown | | + + + + + Care Team Providers + +------+ + | Care Jewel Bearing Grinder Name | Role | Phone | + [...] Description | +--------+---------+ + + + | 04/19/ | Office | [facility] | Jet Chaney, | Chronic midline low | | 2016 | Visit | [facility] | [address] | back pain without | | | | [address] | [place], [place] | sciatica (Primary | | | | [place], [place] | [address] | Dx); Cervical | | | | [address] | | radicular pain; | | | | [phone] | | Severe obesity (BMI | | | | | | 35.0-39.9) ([facility]); | | | | | | Tobacco abuse; Need | | | | | | for 23-polyvalent | | | | | | pneumococcal | | | | | | polysaccharide | | | | | | vaccine | +--------+---------+ + + + Social History [...] + + + | Blood Pressure | 116/80 | 04/19/2016 4:29 PM | | | | | PDT | | + + + + + | Pulse | 73 | 04/19/2016 4:29 PM | | | | | PDT | | + + + + + | Temperature | 36.2 C (97.2 F) | 04/19/2016 4:29 PM | | | | | PDT | | + + + + + | Respiratory Rate | 16 | 04/19/2016 4:29 PM | | | | | PDT | | + + + + + | Oxygen Saturation | 98% | 04/19/2016 4:29 PM | | | | | PDT | | + + + + + | Inhaled Oxygen | - | - | | | Concentration | | | | + + + + + | Weight | 92.2 kg (203 lb 3.2 | 04/19/2016 4:29 PM | | | | oz) | PDT | | + + + + + | Height | 157.5 cm (5' 2") | 04/19/2016 4:29 PM | | | | | PDT | | + + + + + | Body Mass Index | 37.17 | 04/19/2016 4:29 PM | | | | | PDT | | + + + + + documented in this encounter Patient Instructions Patient Instructions Jet Chaney MD - 04/19/2016 4:57 PM PDTBP 116/80 mmHg | Pulse 7 3 | Temp(Src) 36.2 C (97.2 F) (Temporal) | Resp 16 | Ht 1.575 m (5' 2") | Wt 92.171 kg ( 203 lb 3.2 oz) | BMI 37.16 kg/m2 | SpO2 98% Keep up the great work with the weight loss! INCREASE the nortriptyline to 50 mg nightly. For now take 2 of your 25 mg pills. Future r efills will be for 50 mg pills - so you will just need to take 1 pill per night. It takes 2 -3 weeks of consistent use to help improve the pain, so please be patient with it. The best thing you can do for your health is quit smoking. Classes and Counseling to Help Quit smoking: ? [facility]: Smoking cessation class includes 3 sessions over 3 weeks Cost: free Call [phone] to register ? [employer]: counseling available in [place] or Italian Website: www.cancer.org ? Tobacco Quit Line: 4-132-TTGE-NOW ([phone]) counseling available in [place] or Italian Website: www.FreeATM.net ? [facility]: Smoking cessation class includes 7 sessions over 3 weeks Cost: free Call [phone] to register documented in this encounter Progress Notes Jet Chaney MD - 04/19/2016 4:48 PM PDTFormatting of this note might be different fr om the original. Subjective: Patient ID: Baudilio Schneider is a 35 y.o. female here for back and neck pain. HPI She continues to have daily left sided neck pain. Described as "tight." Pain can radiate up to left side of face and down her left arm. Occasionally has numbness of face and left ar m. Pain fluctuates between 0-5/10. Nothing makes the pain worse, comes randomly. Not rela tonny to activity level or body movements. She is taking nortriptyline 25 mg nightly. She is not sure if it has helped. She takes ibuprofen 600 mg 2-3 times per week which helps a lit tle bit. She continues to have low back pain but no longer daily. It has improved with PT, but she has not attended in 3 weeks due to work schedule. Pain is located in band of lower back and does not radiate. Fluctuates between 0-8/10, currently no pain. Worse with laying flat or bending over at waist. She is taking nortriptyline 25 mg nightly. She is not sure if it has helped. She takes ibuprofen 600 mg 2-3 times per week and it does help. She has appointment with Dr Moore in May. No fever, saddle paresthesias, leg paresthesias, bowel/bladder dysfunction, dysuria, hematu tyson. She is trying to lose weight. She is more conscientious of diet and walking more. Patient's medications, allergies, past medical, surgical, social and family histories were obtained and reviewed as appropriate. Review of Systems BP 116/80 mmHg | Pulse 73 | Temp(Src) 36.2 C (97.2 F) (Temporal) | Resp 16 | Ht 1.575 m (5' 2") | Wt 92.171 kg (203 lb 3.2 oz) | BMI 37.16 kg/m2 | SpO2 98% Objective: Physical Exam Constitutional: She is oriented to person, place, and time. Pleasant, obese, NAD Neck: Normal range of motion. Neck supple. Musculoskeletal: Symmetric 5/5 strength with shoulder abduction, flex; elbow flex/ext, track sweeper, finger abductio n 5/5 knee flex/ext Neurological: She is alert and oriented to person, place, and time. No cranial nerve defici t. Spurling negative Neg Straight leg raise Patella 1+ symmetric Psychiatric: She has a normal mood and affect. Her behavior is normal. Thought content norm al. Assessment: Baudilio was seen today for back pain. Diagnoses and all orders for this visit: Chronic midline low back pain without sciatica: Improved slightly with PT. No concerning findings on MRI. She would appreciate seeing a specialist - Resume PT - Continue great work at weight loss - Increase nortriptyline to 50 mg - FU with Dr Moore as planned. Greatly appreciate his assistance Orders: - nortriptyline (PAMELOR) 50 MG capsule; Take 1 capsule by mouth nightly. To help preve nt back pain. Cervical radicular pain: Benign exam without red flag s/s - Increase nortriptyline - Appreciate physiatry's evaluation and recommendations Orders: - nortriptyline (PAMELOR) 50 MG capsule; Take 1 capsule by mouth nightly. To help preve nt back pain. Severe obesity (BMI 35.0-39.9) ([facility]): Losing weight - Continue good work Tobacco abuse - Advised to quit Need for 23-polyvalent pneumococcal polysaccharide vaccine Orders: - Pneumococcal polysaccharide vaccine 23-valent greater than or equal to 2yo subcutaneo us/IM [[id number]] FU: 6 weeks Prashanth Chaney MD [facility] N - 04/19/2016 4:26 PM PDTPatient is here for a general follow-up. She is due for a pneumov ax. documented in thi s encounter Plan of Treatment Not on filedocumented as of this encounter Visit Diagnoses + + | Diagnosis | + + | Chronic midline low back pain without sciatica - Primary | + + | Cervical radicular pain Brachial neuritis or radiculitis nos | + + | Severe obesity (BMI 35.0-39.9) | + + | Tobacco abuse Tobacco use disorder | + + | Need for 23-polyvalent pneumococcal polysaccharide vaccine | + + documented in this encounter
--- OUTSIDE RECORDS SUMMARY | ~2020-05-24 | XMS | Encounter Summary ---
Demographics + + + | Address | [facility] | | | [place] [address] | + + + | Home Phone | | + + + | Preferred Language | Unknown | + + + | Marital Status | Single | + + + | Mandaeism Affiliation | 1041 | + + + | Race | Unknown | + + + | Ethnic Group | or | + + + Author + + + | Author | [facility] | | | and [place] | + + + | Organization | [facility] | | | and [...] [place], [place] | | | | | [address] | | + + + + + | Amy Schneider | ECON | [address] | | | | | [place], [place] | | | | | [address] | | + + + + + | Alisha Schneider | ECON | Unknown | | + + + + + Care Team Providers + +------+ + | Care Equine Science Instructor Name | Role | Phone | + +------+ + | Jet Chaney MD | PCP | | + +------+ + Reason for Visit + +--------+ + | Reason | Onset | Comments | | | Date | | + +--------+ + | Results, Pathology | 09/12/ | | | | 2015 | | + +--------+ + Encounter Details +--------+ + + + + | Date | Type | Department | Care Team | Description | +--------+ + + + + | 09/12/ | Telephone | [facility] [place] | [place] MD | Results, Pathology | | 2016 | | GASTROENTEROLOGY | [address], [place] | | | | | [address] [place] | [address] [place], [place] | | | | | [address] [employer] [place] [employer], [place] | [address] | | | | | [address] | | | | | | [phone] | | | +--------+ + + + [...] this encounter Miscellaneous Notes Telephone Encounter - Fifi Zimmerman RN - 09/12/2016 10:25 AM PSTNotified patient th at H Pylori biopsy from stomach was negative. Esophageal biopsies positive for reflux. Duo denal biopsies normal. Patient states she is taking omeprazole twice a day. She feels as t verena her symptoms are mostly controlled now. She will call if further GI symptomsElectroni madalyn signed by Fifi Zimmerman RN at 09/12/2016 10:29 AM PSTTelephone Encounter - Spring Robertson - 09/12/2016 9:53 AM PSTPatient called and wanted to speak with RN Daniel in [facility] to the most recent message from her, in previous phone note, she is requesting a call back at [phone] when possible. documented in this encounter Plan of Treatment Not on filedocumented as of this encounter Visit Diagnoses Not on filedocumented in this encounter"
--- OUTSIDE RECORDS SUMMARY | ~2020-05-24 | XMS | Encounter Summary ---
Demographics + + + | Address | [facility] | | | [place] [address] | + + + | Home Phone | | + + + | Preferred Language | Unknown | + + + | Marital Status | Single | + + + | Oriental Orthodox Affiliation | 1041 | + + + | Race | Unknown | + + + | Ethnic Group | or | + + + Author + + + | Author | [facility] | | | and [place] | + + + | Organization | [facility] | | | and [place] [...] [place], [place] | | | | | [address] | | + + + + + | Amy Schneider | ECON | [address] | | | | | [place], [place] | | | | | [address] | | + + + + + | Alisha Schneider | ECON | Unknown | | + + + + + Care Team Providers + +------+ + | Care Master Sonar Technician Name | Role | Phone | + +------+ + | Jet Chaney MD | PCP | | + +------+ + Encounter Details +--------+ + + + + | Date | Type | Department | Care Team | Description | +--------+ + + + + | 10/03/ | Hospital | [facility] | Silvio Mtz, | Elevated liver | | 2013 - | Encounter | [facility] | DO [address] | enzymes | | | | [address] | [place] | | | 10/05/ | | [place] | [address] | | | 2012 | | [address] | | | | | | [phone] | | | +--------+ + + + + Social History + +-------+ +--------+------+ | Tobacco Use | Types | Packs/Day | Years | Date | | | | | Used | | + +-------+ +--------+------+ | Current Every Day | | | 13 | | | Smoker | | | | | + +-------+ +--------+------+ + + | Comments: 2 daily off [...] + + + +---------+ + + | ergocalciferol | one by mouth every | | 0 | 03/27/20 | | | (VITAMIN D-2) 50,000 | day for 14 days then | | | 11 | 4 | | units capsule | one by mouth every | | | | | | | week on refill | | | | | | | provide one by mouth | | | | | | | every week | | | | | + + + +---------+ + + | levothyroxine | Take 75 mcg by mouth | | 0 | | | | (SYNTHROID, | Daily. | | | | 3 | | LEVOTHROID) 75 MCG | | | | | | | tablet | | | | | | + + + +---------+ + + | naproxen sodium | Take 1 tablet by | 30 | 1 | 07/04/20 | | | (ANAPROX) 550 MG | mouth Twice daily | tablet | | 12 | 3 | | tabletIndications: | as needed (back | | | | | | Back pain | pain). Take with | | | | | | | food. | | | | | + + + +---------+ + + | MV-Min-Fe | Take by mouth | | 0 | | | | Fum-FA-DHA | Daily. | | | | 4 | | ( 1 PO) | | | | | | + + + +---------+ + + | ranitidine | Take 1 tablet by | 60 | 0 | 09/02/20 | | | (ZANTAC) 150 mg | mouth 2 times daily. | tablet | | 12 | 3 | | tabletIndications: | For upper stomach | | | | | | Epigastric pain | pain. | | | | | + + + +---------+ + + documented as of this encounter Plan of Treatment Not on filedocumented as of this encounter Procedures + +--------+ + + + | Procedure Name | Priori | Date/Time | Associated Diagnosis | Comments | | | ty | | | | + +--------+ + + + | COMPREHENSIVE | Routin | 10/03/2012 | | Results for this | | METABOLIC PANEL | e | 4:17 PM | | procedure are in the | | | | PST | | results section. | + +--------+ + + + | COMPREHENSIVE | Routin | 10/03/2012 | Elevated liver | Results for this | | METABOLIC PANEL | e | 4:07 PM | enzymes | procedure are in the | | | | PST | | results section. | + +--------+ + + + documented in this encounter Results Comprehensive Metabolic Panel (10/03/2012 4:17 PM PST) + + + + + + | Component | Value | Ref Range | Performed | Pathologist | | | | | At | Signature | + + + + + + | Glucose | 106 | 70 - 109 mg/dL | [facility] [...] + + + + | Alkaline | 76 | 40 - 110 IU/L | [facility] | | | Phosphatase | | | [facility] | | | | | | [facility] | | | | | | [facility] - | | | | | | LABORATORY | | + + + + + + | AST | 43 (H) | 10 - 42 IU/L | [facility] | | | | | | [facility] | | | | | | [facility] | | | | | | C[facility] - | | | | | | LABORATORY | | + + + + + + | ALT | 77 (H) | 6 - 45 IU/L | [facility] | | | | | | [facility] | | | | | | [facility] | | | | | | [facility] - | | | | | | LABORATORY | | + + + + + + | Bilirubin | 0.8 | 0.2 - 1.0 mg/dL | [facility] | | | Total | | | [facility] | | | | | | [facility] | | | | | | [facility] - | | | | | | LABORATORY | | + + + + + + | Total | 6.6 | 6.0 - 7.8 gm/dL | [facility] | | | Protein | | | [facility] | | | | | | [facility] | | | | | | CENTER - | | | | | | LABORATORY | | + + + + + + | Albumin | 3.8 | 3.2 - 5.0 gm/dL | [facility] | | | | | | [facility] | | | | | | [facility] | | | | | | [facility] - | | | | | | LABORATORY | | + + + + + + | BUN | 9 | 7 - 18 mg/dL | [facility] | | | | | | [facility] | | | | | | [facility] | | | | | | [facility] - | | | | | | LABORATORY | | + + + + + + | Creatinine | 0.65 | 0.60 - 1.30 | [facility] | | | | | mg/dL | [facility] | | | | | | [facility] | | | | | | C[facility] - | | | | | | LABORATORY | | + + + + + + | Estimated | >60Comment: For | >60 mL/min/A | [facility] | | | GFR | -Americans, | | [facility] | | | | please multiply the | | MEDICAL | | | | result by 1.210 | | CENTER - | | | | This is an estimated | | LABORATORY | | | | GFR and is based on a | | | | | | standard adult | | | | | | body mass (A=1.73m2) and | | | | | | serum creatinine | | | | + + + + + + | BUN/Creatin | 13.8 | 12 - 20 | [facility] | | | ine Ratio | | | [facility] | | | | | | [facility] | | | | | | CENTER - | | | | | | LABORATORY | | + + + + + + | Na | 136 | 136 - 149 mEq/L | [facility] | | | | | | [facility] | | | | | | [facility] | | | | | | [facility] - | | | | | | LABORATORY | | + + + + + + | K | 3.8 | 3.5 - 5.1 mEq/l | [facility] | | | | | | [facility] | | | | | | [facility] | | | | | | [facility] - | | | | | | LABORATORY | | + + + + + + | Cl | 102 | 98 - 109 mEq/l | [facility] | | | | | | [facility] | | | | | | [facility] | | | | | | [facility] - | | | | | | LABORATORY | | + + + + + + | CO2 | 26 | 24 - 31 mEq/L | [facility] | | | | | | [facility] | | | | | | [facility] | | | | | | CENTER - | | | | | | LABORATORY | | + + + + + + | Anion Gap | 11.8 | 6.0 - 17.0 | [facility] | | | | | [...] + | [facility] | [address] | [place] | [phone] | | [facility] | | [address] | | | - LABORATORY | | | | + + + + + | [facility] | [address] | [place], [place] | | | [facility] | | [address], [facility] | | | - LABORATORY | | | | + + + + + Comprehensive metabolic panel (10/03/2012 4:07 PM PST) + + + + + + | Component | Value | Ref Range | Performed | Pathologist | | | | | At | Signature | + + + + + + | Glucose | 106 | 70 - 109 mg/dL | [facility] | | | | | | [facility] | | | | | | [facility]ICAL | | | | | | CENTER - | | | | | | LABORATORY | | + + + + + + | Calcium | 8.9 | 8.3 - 10.5 | [facility] | | | | | mg/dL | [facility] | | | | | [facility] | | | | | | CENTER - | | | | | | LABORATORY | | + + + + + + | Alkaline | 76 | 40 - 110 IU/L | [facility] | | | Phosphatase | | | [facility] | | | | | | [facility] | | | | | | CENTER - | | | | | | LABORATORY | | + + + + + + | AST | 43 (H) | 10 - 42 IU/L | [facility] | | | | | | [facility] | | | | | | MEDICAL | | | | | | CENTER - | | | | | | LABORATORY | | + + + + + + | ALT | 77 (H) | 6 - 45 IU/L | [facility] | | | | | | [facility] | | | | | | MEDICAL | | | | | | CENTER - | | | | | | LABORATORY | | + + + + + + | Bilirubin | 0.8 | 0.2 - 1.0 mg/dL | [facility] | | | Total | | | [facility] | | | | | | MEDICAL | | | | | | CENTER - | | | | | | LABORATORY | | + + + + + + | Total | 6.6 | 6.0 - 7.8 gm/dL | [facility] | | | Protein | | | [facility] | | | | | | MEDICAL | | | | | | CENTER - | | | | | | LABORATORY | | + + + + + + | Albumin | 3.8 | 3.2 - 5.0 gm/dL | [facility] | | | | | [facility] | | | | | | [facility] | | | | | | CENTER - | | | | | | LABORATORY | | + + + + + + | BUN | 9 | 7 - 18 mg/dL | [facility] | | | | | | [facility] | | | | | | MEDICAL | | | | | | CENTER - | | | | | | LABORATORY | | + + + + + + | Creatinine | 0.65 | 0.60 - 1.30 | [facility] | | | | | mg/dL | [facility] | | | | | | MEDICAL | | | | | | CENTER - | | | | | | LABORATORY | | + + + + + + | Estimated | >60Comment: For | >60 mL/min/A | [facility] | | | GFR | -Americans, | | [facility] | | | | please multiply the | | MEDICAL | | | | result by 1.210 | | CENTER - | | | | This is an estimated GFR | | LABORATORY | | | | and is based on a | | | | | | standard adult | | | | | | body mass (A=1.73m2) and | | | | | | serum creatinine | | | | + + + + + + | BUN/Creatin | 13.8 | 12 - 20 | [facility] | | | ine Ratio | | | [facility] | | | | | | MEDICAL | | | | | | CENTER - | | | | | | LABORATORY | | + + + + + + | Na | 136 | 136 - 149 mEq/L | [facility] | | | | | | [facility] | | | | | | [facility]ICAL | | | | | | CENTER - | | | | | | LABORATORY | | + + + + + + | K | 3.8 | 3.5 - 5.1 mEq/l | [facility] | | | | | | [facility] | | | | | | MEDICAL | | | | | | CENTER - | | | | | | LABORATORY | | + + + + + + | Cl | 102 | 98 - 109 mEq/l | [facility] | | | | | | [facility] | | | | | | MEDICAL | | | | | | CENTER - | | | | | | LABORATORY | | + + + + + + | CO2 | 26 | 24 - 31 mEq/L | [facility] | | | | | | [facility] | | | | | | MEDICAL | | | | | | CENTER - | | | | | | LABORATORY | | + + + + + + | Anion Gap | 11.8 | 6.0 - 17.0 | [facility] | | | | | | [facility] | | | | | | MEDICAL | | | | | | CENTER - | | | | | | LABORATORY | | + + + + + + + + | Specimen | + + | Blood specimen | | (specimen) | + + + + + + + | Performing | Address | City/State/Zipcode | Phone Number | | Organization | | | | + + + + + | [facility] | [address] | [place], [place] | [phone] | | [facility] | | [address] | | | - LABORATORY | | | | + + + + + | [facility] | [address] | [place], [place] | | | [facility] | | [address], [facility] | | | - LABORATORY | | | | + + + + + documented in this encounter Visit Diagnoses + + | Diagnosis | + + | Elevated liver enzymes Nonspecific elevation of levels of transaminase or lactic acid | | dehydrogenase (LDH) | + + documented in this encounter"
--- OUTSIDE RECORDS SUMMARY | ~2020-05-24 | XMS | Encounter Summary ---
Demographics + + + | Address | [facility] | | | [place] [address] | + + + | Home Phone | | + + + | Preferred Language | Unknown | + + + | Marital Status | Single | + + + | Hindu Affiliation | 1041 | + + + | Race | Unknown | + + + | Ethnic Group | or | + + + Author + + + | Author | [facility] | | | and [place] | + + + | Organization | [facility] [...] [place], [place] | | | | | [address] | | + + + + + | Amy Schneider | ECON | [address] | | | | | [place], [place] | | | | | [address] | | + + + + + | Alisha Schneider | ECON | Unknown | | + + + + + Care Team Providers + +------+ + | Care Employee Operations Examiner Name | Role | Phone | + +------+ + | Jet Chaney MD | PCP | | + +------+ + Reason for Visit + + + | Reason | Comments | + + + | Follow-up | | + + + Encounter Details +--------+---------+ + + + | Date | Type | Department | Care Team | Description | +--------+---------+ + + + | 09/18/ | Office | [facility] | Jet Chaney, | Impaired fasting | | 2018 | Visit | [facility] | [address] | glucose (Primary | | | | [address] | [place] | Dx); Hypothyroidism, | | | | [place] | [address] | unspecified type; | | | | [address] | | Hypertriglyceridemia | | | | [phone] | | without | | | | | | hypercholesterolemia | | | | | | ; Ganglion cyst of | | | | | | flexor tendon sheath | | | | | | of finger, left; | | | | | | Tobacco abuse; | | | | | | Chronic midline low | | | | | | back pain without | | | | | | sciatica; Need for | | | | | | immunization against | | | | | | influenza | +--------+---------+ + + + Social History [...] | | + +---+---+---+ + + | Tobacco Cessation: Ready to Quit: No; Counseling Given: Yes | | Comments: 2 cigs daily | + [...] + + + | Blood Pressure | 128/82 | 09/18/2017 11:33 AM | | | | | PST | | + + + + + | Pulse | 78 | 09/18/2017 10:50 AM | | | | | PST | | + + + + + | Temperature | 36.7 C (98.1 F) | 09/18/2017 10:50 AM | | | | | PST | | + + + + + | Respiratory Rate | 20 | 09/18/2017 10:50 AM | | | | | PST | | + + + + + | Oxygen Saturation | 98% | 09/18/2017 10:50 AM | | | | | PST | | + + + + + | Inhaled Oxygen | - | - | | | Concentration | | | | + + + + + | Weight | 96.5 kg (212 lb 11.9 | 09/18/2017 10:50 AM | | | | oz) | PST | | + + + + + | Height | 157.5 cm (5' 2.01") | 09/18/2017 10:50 AM | | | | | PST | | + + + + + | Body Mass Index | 38.9 | 09/18/2017 10:50 AM | | | | | PST | | + + + + + documented in this encounter Patient Instructions Patient Instructions Jet Chaney MD - 09/18/2017 10:45 AM PSTThings that can help imp rove the blood sugars are: 1. Aim for 150 minutes of brisk exercise per week 2. Eat a diet lower in carbohydrates and higher in vegetables and protein. Visit the [employer] websites for helpful tips and recipes for controlling diabetes: General tips: http://www.diabetes.org/whtu-uxs-dtnyxyw/food/rhfs-ndn-m-eat/ Recipe ideas (including quick and budget friendly recipes): http://www.diabetes.org/mfa -recipes/recipes/ Ganglion Cyst A ganglion cyst usually is a painless bump on the wrist or finger joint. It connects to the joint capsule and grows like a balloon on a stalk. It is filled with joint fluid. The cause of a ganglion cyst is not known. If the cyst puts pressure on a nearby nerve it may cause pain. Otherwise,cysts are painle ss and harmless. Most tend to disappear over time without treatment. Do not try to drain or break the cyst at home. This can cause harm and does not cure the problem. If you are having pain from the cyst, a temporary wrist splint may be helpful to limit wris t motion. If this does not help, the fluid can be removed from the cyst. This should shrink the size of the cyst. If this doesn t give relief, the ganglion can be removed by surgery. Home care If you are having wrist pain, use a wrist splint for 1-2 weeks at a time. You can buy on e at many drug stores without a prescription. You may mqqorhi-oaq-cocjnou pain medicineto control pain, unless another medicine wa s prescribed. If you have chronic liver or kidney disease or ever had a stomach ulcer or GI bleeding, talk with your healthcare provider beforeusing these medicines. If a needle was used to drain the cyst fluid or inject medicine into it, keep the site c lean and covered with abandagefor the first 24 hours. If a pressure dressing was applied , leave it in place for the time advised. Follow-up care Follow up with your healthcare provider, or as advised by our staff.Make an appointment f or a repeat exam if pain continues for more than 2 weeks in a wrist splint. When to seek medical advice Call your healthcare provider right away if any of these occur: Increasing pain in the wrist Redness over the cyst Fluid draining from the cyst Numbness or tingling in the hand or arm Date Last Reviewed: 08/05/201519995947-8446 [employer]. [address] [place] [address], [place] [address]. All righ ts reserved. This information is not intended as a substitute for professional medical care. Always follow your healthcare professional's instructions. documented in this encounter Progress Notes Jet Chaney MD - 09/18/2017 10:45 AM PSTFormatting of this note might be different fr om the original. Subjective: Patient ID: Baudilio Schneider is a 37 y.o. female here for kidneys, bump on left middle finger, lab review HPI She wants to make sure her kidneys are doing well because her dad has kidney disease. No d ysuria, hematuria. For months she's had a bump on the flexural surface of her left middle finger. Feels like a bone. It does not hurt. No problems with ROM. No fever, redness, drainage. She's been drinking more sweetened coffees. Diet has not been as good over the holidays. She is active at work, no formal exercise. No unexplained weight loss, polydipsia, polyuria , vision changes, paresthesias. She met with Dr Restrepo. He did not feel she had ankylosing spondylitis or Sjogren's disease . He attributed facet arthropathy to occupation and body habitus. Encouraged to follow-up with physiatry, PT. Consider acupuncture or direct care professional. Could consider MRI sacroili iac joints should symptoms changed. Patient's medications, allergies, past medical, surgical, social and family histories were obtained and reviewed as appropriate. Review of Systems Objective: BP 128/82 | Pulse 78 | Temp 36.7 C (98.1 F) (Temporal) | Resp 20 | Ht 1.575 m (5' 2 .01") | Wt 96.5 kg (212 lb 11.9 oz) | SpO2 98% | BMI 38.90 kg/m Physical Exam Constitutional: Very pleasant, obese, NAD Cardiovascular: Normal rate, regular rhythm, normal heart sounds and intact distal pulses. Exam reveals no gallop and no friction rub. No murmur heard. Pulmonary/Chest: Breath sounds normal. No respiratory distress. She has no wheezes. She has no rales. Abdominal: Soft. She exhibits no distension. There is no tenderness. There is no rebound an d no guarding. Musculoskeletal: She exhibits no edema. Small beebee sized mobile cyst of flexural surface of left middle finger. Full ROM of fing ers. No contracture, triggering Appointment on 09/12/2017 Component Date Value Ref Range Status TSH 09/12/2017 0.79 0.34 - 5.60 uIU/mL Final Hemoglobin A1c 09/12/2017 6.4* 4.3 - 6.0 % Final Estimated Average Glucose 09/12/2017 137 mg/dL Final NA 09/12/2017 135* 136 - 149 mmol/L Final K 09/12/2017 4.0 3.5 - 5.1 mmol/L Final CL 09/12/2017 103 98 - 109 mmol/L Final CO2 09/12/2017 29 24 - 31 mmol/L Final ANION GAP 09/12/2017 3 3 - 16 mmol/L Final GLUCOSE 09/12/2017 96 70 - 109 mg/dL Final BUN 09/12/2017 5* 7 - 18 mg/dL Final Creatinine, Serum/Plasma 09/12/2017 0.56* 0.60 - 1.30 mg/dL Final eGFR if not 09/12/2017 >60 >=60 mL/min/1.73m2 Final CALCIUM 09/12/2017 8.8 8.3 - 10.5 mg/dL Final ALBUMIN 09/12/2017 3.7 3.2 - 5.0 g/dL Final BILIRUBIN TOTAL 09/12/2017 0.5 0.1 - 1.5 mg/dL Final Total protein 09/12/2017 7.1 6.0 - 7.8 g/dL Final AST 09/12/2017 21 10 - 42 U/L Final ALT 09/12/2017 31 6 - 45 U/L Final ALK PHOS 09/12/2017 65 40 - 110 U/L Final GLOBULIN 09/12/2017 3.4 2.1 - 3.8 g/dL Final Albumin/Globulin ratio 09/12/2017 1.1 0.8 - 2.0 Final BUN/CREA 09/12/2017 8.9 Final Triglycerides 09/12/2017 172* 35 - 160 mg/dL Final Cholesterol 09/12/2017 139* 140 - 200 mg/dL Final HDL 09/12/2017 35 28 - 83 mg/dL Final Chol/HDL Ratio 09/12/2017 4.0 Final LDL, Calculated 09/12/2017 70 <=130 mg/dL Final Assessment: Baudilio was seen today for follow-up. Diagnoses and all orders for this visit: Impaired fasting glucose: Asymptomatic - Diet, exercise, weight loss reviewed. - Greatly appreciate Rosalina's assistance meeting with her to provide additional education - Nutrition consult not covered by insurance. - Glucose, Fasting; Future - Hemoglobin A1C; Future Hypothyroidism, unspecified type: Well controlled - levothyroxine (SYNTHROID) 75 MCG tablet; Take 1 tablet by mouth every morning (before breakfast). For low thyroid Hypertriglyceridemia without hypercholesterolemia: Mild. Primary prevention - Diet, exercise, weight loss reviewed Ganglion cyst of flexor tendon sheath of finger, left: - Reassurance provided. Educated on warning signs including growth, pain, discharge, redn ess. Tobacco abuse - Advised to quit completely Chronic midline low back pain without sciatica: Rheumatology note reviewed. Greatly appre ciate their assistance. Suspicion for Sjogrens is low so have decided to hold off on ophtha lmology referral. Has not been compliant with PT due to busy work/parenting schedule. Face t injections not covered. No relief with Cymbalta, nortriptyline. Did not tolerate amitrip tyline. - Weight loss - PT once able Need for immunization against influenza - Influenza *PF 4 yr or >, Quadrivalent Derived from [employer] FU: 6 months with fasting labs Prashanth Chaney MD Roxana Hinton LP N - 09/18/2017 10:45 AM PSTPatient is here for a 4 month follow up. Had labs done last week. After obtaining informed consent, the immunization is given by Elian CROSS. documented in this encounter Plan of Treatment Not on filedocumented as of this encounter Results Hemoglobin A1C (02/07/2018 8:40 AM PDT) + +-------+ + + + | Component | Value | Ref Range | Performed | Pathologist | | | | | At | Signature | + +-------+ + + + | Hemoglobin | 5.9 | 4.3 - 6.0 % | [facility] | | | A1c | | | [facility] | | | | | | [facility] | | | | | | CENTER - | | | | | | LABORATORY | | + +-------+ + + + | Estimated | 123 | mg/dL | [facility] | | | [...] + | [facility] | [address] | [place] | [phone] | | [facility] | | [address] | | | - LABORATORY | | | | + + + + + Glucose, Fasting (02/07/2018 8:40 AM PDT) + +-------+ + + + | Component | Value | Ref Range | Performed | Pathologist | | | | | At | Signature | + +-------+ + + + | Glucose, | 100 | 74 - 110 mg/dL | [facility] | | | Fasting | | | [facility] | | [...] + | [facility] | [address] | [place] | [phone] | | [facility] | | [address] | | | - LABORATORY | | | | + + + + + documented in this encounter Visit Diagnoses + + | Diagnosis | + + | Impaired fasting glucose - Primary | + + | Hypothyroidism, unspecified type | + + | Hypertriglyceridemia without hypercholesterolemia Pure hyperglyceridemia | + + | Ganglion cyst of flexor tendon sheath of finger, left | + + | Tobacco abuse Tobacco use disorder | + + | Chronic midline low back pain without sciatica | + + | Need for immunization against influenza Need for prophylactic vaccination and | | inoculation against influenza | + + documented in this encounter
--- OUTSIDE RECORDS SUMMARY | ~2020-05-24 | XMS | Encounter Summary ---
Demographics + + + | Address | [address] | | | [place] [address] | + + + | Home Phone | | + + + | Preferred Language | Unknown | + + + | Marital Status | Single | + + + | Alevism Affiliation | 1041 | + + + | Race | Unknown | + + + | Ethnic Group | or | + + + Author + + + | Author | [facility] | | | and [place] | + + + | Organization | [facility] | | | and [place] [...] [place], [place] | | | | | [address] | | + + + + + | Amy Schneider | ECON | [address] | | | | | [place], [place] | | | | | [address] | | + + + + + | Alisha Schneider | ECON | Unknown | | + + + + + Care Team Providers + +------+ + | Care Senior Principal Name | Role | Phone | + [...] | | | | | | | Chronic | | | | | | | abdominal | | | | | | | pain (R10.9, | | | | | | | G89.29) | | | | | | | K21.9 GERD | | | | | | | Procedures | | | | | | | CT | | | | | | | ESOPHAGOGAST | | | | | | | RODUODENOSCO | | | | | | | PY TRANSORAL | | | | | | | DIAGNOSTIC | | | | | | | CT EGD | | | | | | | TRANSORAL | | | | | | | BIOPSY | | | | | | | SINGLE/MULTI | | | | | | | PLE EGD | | | +--------+--------+ + + + + Encounter Details +--------+ + + + + | Date | Type | Department | Care Team | Description | +--------+ + + + + | 08/05/ | Hospital | [facility] | Hill Montana MD | Gastroesophageal | | 2018 | Encounter | MED CTR MP INTRA OP | [address], [place] | reflux disease | | | | [address] | [address] [place], [place] | without esophagitis | | | | [place], [place] | [address] | (Primary Dx) | | | | [address] | | | | | | [phone] | | | +--------+ + + + [...] + + + | Blood Pressure | 111/71 | 08/05/2018 11:30 AM | | | | | PST | | + + + + + | Pulse | 66 | 08/05/2018 11:30 AM | | | | | PST | | + + + + + | Temperature | 37 C (98.6 F) | 08/05/2018 9:58 AM | | | | | PST | | + + + + + | Respiratory Rate | 16 | 08/05/2018 11:30 AM | | | | | PST | | + + + + + | Oxygen Saturation | 97% | 08/05/2018 11:30 AM | | | | | PST | | + + + + + | Inhaled Oxygen | - | - | | | Concentration | | | | + + + + + | Weight | 88.5 kg (195 lb 1.7 | 08/05/2018 9:58 AM | | | | oz) | PST | | + + + + + | Height | 157.5 cm (5' 2") | 08/05/2018 9:58 AM | | | | | PST | | + + + + + | Body Mass Index | 35.69 | 08/05/2018 9:58 AM | | | | | PST | | + + + + + documented in this encounter Discharge Instructions Instructions oSbia Melendez RN - 08/05/2018, Sedacin de procedimiento (adulto) A usted le wrener dado medicamentos intravenosos para sedarlo candie sharp procedimiento de hoy. Es probable que le hayan dado un medicamento contra el dolor y otro para dormir. La mayor p sepideh del efecto de estos medicamentos ya guillen desaparecido, kobi es posible que contine teni endo somnolencia candie las prximas 6-8 horas. Cuidados en la casa Siga estas instrucciones cuando llegue a casa: Es importante que haya un adulto responsable a sharp lado candie las prximas ocho horas para vigilar si se produce un empeoramiento de sharp estado. No tome medicamentos orales contra el dolor o para dormir candie las prximas cuatro h oras, ya que esto puede reaccionar con los medicamentos que le dieron en el hospital y provo car gabrielle respuesta mucho ms brian que la habitual. No manny nada de alcohol candie las prximas 24 horas. No maneje ni opere maquinaria peligrosa, ni tampoco tome decisiones importantes de negoc ios o personales, ni firme documentos legalesdurante las siguientes 24 horas. Visita de control Programe gabrielle visita de control con sharp mdico o con don centro si no se siente leon despie rto y no guillen recuperado sharp nivel normal de actividad en un plazo de doce horas. Cundo debe buscar atencin mdica Llame de inmediato al proveedor de atencin mdicasi ocurre cualquiera de las siguiente s situaciones: Somnolencia (adormecimiento) que va en aumento Debilidad o mareo en aumento Vmito persistente Si no pueden despertarlo Date Last Reviewed: 03/11/201719990388-3116 [employer]. [address] [place] [address]. Todos lo s derechos reservados. Esta informacin no pretende sustituir la atencin mdica profesio nal. Slo sharp mdico puede diagnosticar y tratar un problema de smooth. documented in this encounter Medications at Time [...] + + + +---------+ + + | gabapentin | 1 capsule by mouth | 120 | 1 | 02/18/20 | | | (NEURONTIN) 300 mg | at bedtime for one | capsule | | 18 | 9 | | capsule | week, then 2 | | | | | | | capsules by mouth. | | | | | + + [...] tablet by | 30 | 5 | 03/03/20 | | | (PROTONIX) 40 mg | mouth every morning | tablet | | 18 | 9 | | tabletIndications: | (before [...] encounter H&P Notes Hill [place] MD - 08/05/2018 10:35 AM PSTThe patient has no questions consent form is si gned pulse 78 O2 sat 100% blood pressure 140/80 we will proceed with upper endoscopyElectron icacaity signed by Hill Montana MD at 08/05/2018 10:36 AM Hill Bal MD - 08/04/2018 10:01 AM PST PRE-ENDOSCOPY HISTORY AND PRE-SEDATION ASSESSMENT PATIENT NAME: Baudilio Schneider : 1980 TODAY'S DATE: 08/05/2018 PLANNED PROCEDURE: upper endoscopy PERTINENT HISTORY/INDICATION FOR PROCEDURE: Baudilio Schneider is a 37 y.o. female who is under going upper endoscopy for evaluation of GERD, abdominal distention, weight loss and abdomina l pain. See my consult from 07/01/2018. Patient denies any change in abdominal symptoms L status since seen in the office PAST HISTORY: Past Medical History: Diagnosis Date Allergy Cervical radicular pain Chest wall pain Chronic abdominal pain Chronic midline low back pain without sciatica Depression Dysplasia of cervix, low grade (CHRISTIAN 1) 08/15/201203/27: Colposcopy 2:00 position showed CHRISTIAN 1 Gallbladder disease GERD (gastroesophageal reflux disease) Hand numbness Hurts daily Hypothyroid Insomnia Lower back pain Nephrolithiasis 03/03/2018 Obesity Prediabetes Seasonal allergies Stress Thyroid disorder Tobacco abuse 02/23/2014 Vitamin D deficiency PAST SURGICAL HISTORY Past Surgical History: Procedure Laterality Date CHOLECYSTECTOMY 2000 ENDOSCOPY 09/21/2013 weakened lower esophageal sphincter, gastritis biopsied, pathology negative - Dr [place] at [facility] INTRAUTERINE DEVICE INSERTION 07/12/2015 Mirena - Dr Kaur at [facility] TONSILLECTOMY 11/01/2009 chronic tonsillitis, severely hypertrophic tonsils with upper airway obstruction - Dr Farhat thompson at [facility] UPPER GASTROINTESTINAL ENDOSCOPY N/A 08/28/2016 Procedure: EGD; Surgeon: Hill [place] MD; Location: [facility] MEDICAL PROCEDURE UNIT HOME MEDS: Prior to Admission medications Medication Sig Taking? bisacodyl (BISACODYL) 5 mg EC tablet Take 1 tablet by mouth Daily as needed for Constipatio n. Cholecalciferol (VITAMIN D3) 5000 UNITS CAPS Take 5,000 Units by mouth Daily. docusate sodium (COLACE) 100 mg capsule Take 1 capsule by mouth Daily. To help constipation fish oil 1,000 mg capsule Take 2,000 mg by mouth Daily. gabapentin (NEURONTIN) 300 mg capsule 1 capsule by mouth at bedtime for one week, then 2 ca psules by mouth. levonorgestrel (MIRENA) 20 MCG/24HR IUD 1 Device by Intrauterine route once for 1 dose. levothyroxine (SYNTHROID) 88 mcg tablet Take 88 mcg by mouth every morning (before breakfas t). Multiple Vitamins-Minerals (WOMENS ONE DAILY PO) Take 1 tablet by mouth Daily. nortriptyline (PAMELOR) 10 MG capsule 1 capsule by mouth at bedtime for 7 days; then 2 at b edtime for 7 days; then 3 at bedtime for 7 days; then 4 at bedtime Patient taking differently: 20 mg. 1 capsule by mouth at bedtime for 7 days; then 2 at bedt sally for 7 days; then 3 at bedtime for 7 days; then 4 at bedtime pantoprazole (PROTONIX) 40 mg tablet Take 1 tablet by mouth every morning (before breakfast ). To help stomach inflammation UNABLE TO FIND 20 g. Med Name: Protein ALLERGIES Allergies Allergen Reactions Hydrocodone Hives and Shortness Of Breath ASA CLASSIFICATION:2 EXAMINATION: Blood pressure 118/82, pulse 71, temperature 37 C (98.6 F), temperature source Temporal , resp. rate 16, height 1.575 m (5' 2"), weight 88.5 kg (195 lb 1.7 oz), last menstrual juan manuel od 07/14/2018, SpO2 98 %, not currently . General: Alert and [id number]: Normal Lungs: Clear Heart: Regular rate and rhythm with out significant murmur Abdomen: flat, normal bowel sounds. Soft, nontender 1. Available medical records have been reviewed. 2. Medication list reviewed. IMPRESSION: epigastric pain Patient appropriate for procedure. PLAN: 1. Proceed with procedure as stated above with moderate sedation/analgesia 2. Procedure, indications, risks and alternatives explained to patient/family and they agre ed to proceed and consent was signed. 3. Patient will be reevaluated immediately (1-2 minutes) before sedation administration and approved for the plan as stated above. Electronically Signed by: Hill [place] MD 08/05/2018 [facility] Portions of this chart may have been created with [employer] voice recognition software. Occasi onal wrong-word or sound-alike substitutions may have occurred due to the inherent carrillo itations of voice recognition software. Please read the chart carefully and recognize, using context, where these substitutions have occurred documented in this encounter Miscellaneous Notes Op Note - Hill [place] MD - 08/05/2018 10:55 AM PSTUpper endoscopy was remarkable for a weakened lower esophageal sphincter muscle irregular Z line at 35 cm. Biopsies were obtaine d above the same. Gastric cavity had minimal antral gastritis. H. pylori biopsy was obtain ed. Duodenal mucosa appeared normal but biopsies were obtained due to patient's history of bloating etc. Patient will continue on her Protonix. IV conscious sedation was administered or supervised from 10:30 until 10:53 AMElectronicall y signed by Hill [place] MD at 08/05/2018 10:55 AM PSTD-C Instructions [facility] - Hill [place] MD - 08/05/2018 10:27 AM PSTDischarge Instructions for Upper Endoscopy Patient: Baudilio Schneider : 1980 Acct: [id number] Exam Date: Sunday, August 05, 2018 Doctor: Hill Montana MD The chances of difficulty following this procedure are minimal. The following instructions will assist you in your recovery. 1. Do Not eat or drink anything for 1 hour. Try sips of water first. If tolerated, resume your regular diet or one recommended by your physician. 2. Do not drive, operate machinery, make critical decisions, or do activities that require coordination or balance for 24 hours. 3. You may experience a sore throat for 24 - 48 hours. You may use throat lozenges or gargle with warm salt water to relieve the discomfort. 4. Because air was put into your stomach druing the procedure, you may experience some belching. 5. Do not use any medication containing aspirin for 10 days, unless otherwise directed by your physician. 6. Sometimes the medications given to you druing the exam can aggravate the veins. The chemical irritation can cause inflammation or pain along the arm with redness, swelling and warmth. This does not mean there is an infection. You can treat the affected area by applying warm, wet compresses (towels) 4 times a day for 20 minutes at a time until inflammation is resolved 7. Report to your doctor: Chills and/or fever over 100 Persistent vomiting or vomiting with blood/nasal regurgitation Severe abdominal pain, other than gas cramps Severe chest pain Black, tarry stools You may reach your physician at Work: . If unable to reach your physician, call [facility] Emergency Department at Ext. [phone] Your doctor recommends these additional instructions: You have a contact number available for emergencies. The signs and symptoms of potential delayed complications were discussed with you. You may return to normal activities tomorrow. Written discharge instructions were provided to you. [...] acidic foods, alcohol, chocolate, mints, coffee and other caffeinated beverages, carbonated beverages, fatty and fried foods. - Avoid tight-fitting clothing. - Avoid cigarettes and other tobacco products. Continue your present medications. We are waiting for your pathology results. Return to your primary care physician as previously scheduled. Telephone your GI clinic for pathology results in one week. These instructions have been explained to the patient and/or escort. A copy has been given to the patient/escort. Nurse Signature Patient Signature Escort Signature Date Hill Montana MD 08/05/2018 11:00:05 AM This report has been signed electronically.Electronically signed by Hill Montana MD at 11:00 AM PSTdocumented in this encounter Plan of Treatment Not on filedocumented as of this encounter Procedures + +--------+ + + + | Procedure Name | Priori | Date/Time | Associated Diagnosis | Comments | | | ty | | | | + +--------+ + + + | HELICOBACTER PYLORI | Routin | 08/05/2018 | | Results for this | | BIOPSY | e | 10:40 AM | | procedure are in the | | | | PST | | results section. | + +--------+ + + + | EGD | | 08/05/2018 | Chronic abdominal | | | | | 10:30 AM | pain (R10.9, G89.29) | | | | | PST | K21.9 GERD | | + +--------+ + + + | EGD | Routin | 08/05/2018 | | Results for this | | | e | 10:27 AM | | procedure are in the | | | | PST | | results section. | + +--------+ + + + | POCT TEST, | Routin | 08/05/2018 | | Results for this | | URINE, QUAL | e | 10:21 AM | | procedure are in the | | | | PST | | results section. | + +--------+ + + + | SURGICAL PATHOLOGY | Routin | 08/05/2018 | | Results for this | | EXAM | e | 12:00 AM | | procedure are in the | | | | PST | | results section. | + +--------+ + + + documented in this encounter Results Helicobactor pylori Biopsy (08/05/2018 10:40 AM PST) + + + + + + | Component | Value | Ref Range | Performed | Pathologist | | | | | At | Signature | + + + + + + | Helicobacte | Negative | Negative | [facility] | | | r pylori Ag | | | [facility] | | | | | | MEDICAL | | | | | | CENTER - | | | | | | LABORATORY | | + + + + + + + + | Specimen | + + | Tissue - Specimen | | from stomach | | (specimen) | + + + + + + + | Performing | Address | City/State/Zipcode | Phone Number | | Organization | | | | + + + + + | [facility] | [address] | [place] | [phone] | | [facility] | | [address] | | | - LABORATORY | | | | + + + + + EGD (08/05/2018 10:27 AM PST) + + | Specimen | + + | | + + + + -+ | Narrative | Performed At | + + -+ | | [facility] | | GastroenterologyPatient Name: Baudilio Peña Date: 08/05/2018 | [facility] | | 10:27 AMMRN: [id number] #: [id number] of : | | | 1980Admit Type: AmbulatoryAge: 37Room: [facility]Gender: FemaleNote | | | Status: FinalizedAttending MD: Hill Montana , MDProcedure: | | | Upper GI endoscopyIndications: Epigastric abdominal pain, | | | Abdominal bloatingProviders: Hill [place] MD, Maryanne | | | THO Leonard, Myla Puente RN, Isabela Falcon | | | THO Schuster, Hiren Seals, CMAReferring MD: Jet Dias | | | MD Ritu (Referring MD)Medicines: Midazolam 1 mg IV, | | | Meperidine 75 mg IV, Benzocaine spray, | | | Oxygen 4 liters/min nasocannulaComplications: No immediate | | | complications. Estimated blood loss: Minimal.Procedure: | | | Pre-Anesthesia Assessment: - Prior to the procedure, a History | | | and Physical was performed, and patient medications, allergies | | | and sensitivities were reviewed. The patient's tolerance of [...] the nurse | | | and the limited radiology technician in the endoscopy suite. Mental Status | | | Examination: alert and oriented. Airway Examination: | | | small/crowded oropharyngeal airway and Mallampati Class III | | | (part of the uvula and soft palate visualized). Prophylactic | | | Antibiotics: The patient does not require prophylactic | | | antibiotics. Prior Anticoagulants: The patient has taken no previous | | | anticoagulant or antiplatelet agents. ASA Grade Assessment: II - | | | A patient with mild systemic disease. After [...] | condition to undergo the procedure. - Immediately prior to | | | administration of medications, the patient was re-assessed for | | | adequacy to receive sedatives. - The heart rate, respiratory | | | rate, oxygen saturations, blood pressure, adequacy of pulmonary | | | ventilation, and response to care were monitored throughout | | | the procedure. - The physical status of the patient was | | | re-assessed after the procedure. After obtaining informed | | | consent, the endoscope was passed under direct vision. | | | Throughout the procedure, the patient's blood pressure, pulse, | | | and oxygen saturations were monitored continuously. The Endoscope was | | | introduced through the mouth, and advanced to the third part of | | | duodenum. The upper GI endoscopy was accomplished without | | | difficulty. The patient tolerated the procedure well.Findings: | | | The cricopharyngeus, upper third of the esophagus, middle third | | | of the esophagus and lower third of the esophagus were normal. | | | The Z-line was irregular and was found 35 cm from the incisors. | | | Biopsies were taken with a cold forceps for histology. | | | Verification of patient identification for the specimen was | | | done. Estimated blood loss was minimal. A patulous lower | | | esophageal sphincter was found. Localized moderately | | | erythematous mucosa without bleeding was found in the gastric | | | antrum. Biopsies were taken with a cold forceps for | | | Helicobacter pylori testing using CLOtest. Verification of patient | | | identification for the specimen was done. Estimated blood loss was | | | minimal. The duodenal bulb, first portion of the | | | duodenum, second portion of the duodenum, area of the papilla | | | and third portion of the duodenum were normal. Biopsies for | | | histology were taken with a cold forceps for evaluation of | | | celiac disease. Verification of patient identification for the | | | specimen was done. Estimated blood loss was minimal. The | | | retroflexed view confirmed previous findings,Impression: - | | | Normal cricopharyngeus, upper third of esophagus, middle third of | | | esophagus and lower third of esophagus. - Z-line irregular, | | | 35 cm from the incisors. Biopsied. - Patulous lower esophageal | | | sphincter. - Erythematous mucosa in the antrum. Biopsied. | | | - Normal duodenal bulb, first portion of the duodenum, second portion | | | of the duodenum, area of the papilla and third portion of the | | | duodenum. Biopsied. - The retroflexed view confirmed | | | previous findings,Recommendation: - Patient has a contact number | | | available for emergencies. The signs and symptoms of potential | | | delayed complications were discussed with the patient. Return | | | to normal activities tomorrow. Written discharge instructions | | | were provided to the patient. - Discharge patient to home | | | (ambulatory). - Resume previous diet today. - Follow an | | | antireflux regimen indefinitely. - Continue present medications. | | | - Await pathology results. - Return to primary care | | | physician as previously scheduled. - Telephone GI clinic for | | | pathology results in 1 week.Hill Montana MD08/05/2018 11:00:05 | | | AMThis report has been signed electronically.Number of Addenda: 0Note | | | Initiated On: 08/05/2018 10:27 AMTotal Procedure Duration: 0 hours 8 | | | minutes 49 seconds Scope In: 10:38:29 AMScope Out: 10:47:18 AM | | | [facility], [address] [place] [address] | | | [id number] | | | - Discharge patient to [...] | | |Hill Montana MD | | |08/05/2018 11:00:05 AM | | |This report has been signed electronically. | | |Number of Addenda: 0 | | |Note Initiated On: 08/05/2018 10:27 AM | | |Total Procedure Duration: 0 hours 8 minutes 49 seconds | | |Scope In: 10:38:29 AM | | |Scope Out: 10:47:18 AM | | | [facility], [address] [place] [address] | | | [id number] | | + + -+ + +---------+ + + | Performing | Address | City/State/Zipcode | Phone Number | | Organization | | | | + +---------+ + + | [facility] | | | | + +---------+ + + POCT Test, Urine, QUAL (08/05/2018 10:21 AM PST) + + + + + + | Component | Value | Ref Range | Performed | Pathologist | | | | | At | Signature | + + + + + + | | Negative | Negative | [facility] | | | Test, | | | [facility] | | | Urine, POC | | | CORE | | | | | | LABORATORY | | + + + + + + | Internal QC | Acceptable | Acceptable, Not | [facility] | | | | | Performed | [facility] | | | | | | CORE | | | | | | LABORATORY | | + + + + + + | Specific | | 1.010, 1.015, | [facility] | | | [place], | | 1.020, 1.025 | [facility] | | | POC | | | CORE | | | | | | LABORATORY | | + + + + + + | Lot Number | [id number] | | [facility] | | | | | | [facility] | | | | | | CORE | | | | | | LABORATORY | | + + + + + + | Expiration | 2019-11-25 | | [facility] | | | Date | | | [facility] | | | | | | CORE | | | | | | LABORATORY | | + + + + + + + + | Specimen | + + | Urine | + + + + + + + | Performing | Address | City/State/Zipcode | Phone Number | | Organization | | | | + + + + + | [facility] | [address] | [place] [address] | [phone] | | [facility] | | | | | LABORATORY | | | | + + + + + Surgical Pathology Exam (08/05/2018 12:00 AM PST) + + | Specimen | + + | | + + + + + | Narrative | Performed At | + + + | SPECIMEN(S): A DUODENUM RANDOM SPECIMEN(S): B DISTAL ESOPHAGUS | [facility] | | SPECIMEN SOURCE: A. DUODENUM RANDOM B. DISTAL ESOPHAGUS CLINICAL | [facility] | | HISTORY: Chronic abdominal pain (R10.9, G89.29), GERD (K21.9) | | | MICROSCOPIC DESCRIPTION: Histologic sections of all submitted blocks | | | are examined by light microscopy. These findings, together with the | | | gross examination, support the pathologic diagnosis. FINAL | | | PATHOLOGIC DIAGNOSIS: A. Random duodenum, biopsy: - Benign | | | duodenal mucosa, negative for specific diagnostic abnormality. B. | | | Distal esophagus, biopsy: - Benign esophageal mucosa with reactive | | | epithelial features, negative for increased epithelial eosinophils. - | | | Negative for glandular mucosa. JVR:[facility]:C2NR GROSS | | | DESCRIPTION: Two specimens are received in two containers: A. The | | | specimen is received in formalin labeled "duodenum biopsy", and | | | consists of six 0.2 to 0.3 cm alonso fragments, entirely submitted in A1. | | | B. The specimen is received in formalin labeled "Schneider", | | | designated "distal esophagus" and consists of four 0.2 to 0.3 cm | | | alonso-white fragments, entirely submitted in B1. am:AMB:emb | | | PERFORMING LABORATORY: The technical component was performed by | | | [facility], [address] [place] [id number] (Medical | | | Director: Bridget Wu MD; CLIA# [id number]). Professional | | | [facility] | | [address] | | | [address] (Child Caregiver Private Home: Jorge Aldana M.D.). Diagnostician: | | | Jorge Aldana MD Pathologist Electronically Signed 08/06/2018 | | | | | + + + + +---------+ + + | Performing | Address | City/State/Zipcode | Phone Number | | Organization | | | | + +---------+ + + | [facility] | | | | | [facility] | | | | + +---------+ + + documented in this encounter Visit Diagnoses + + | Diagnosis | + + | Gastroesophageal reflux disease without esophagitis - Primary Esophageal reflux | + + documented in this encounter Administered Medications + +--------+ +---------+------+------+ | Medication Order | MAR | Action | Dose | Rate | Site | | | Action | Date | | | | + +--------+ +---------+------+------+ | benzocaine (HURRICAINE) 20% | Given | 08/05/20 | 1 spray | | | | non-aerosol spray PRN, Starting | | 18 10:32 | | | | | 08/05/18 at 1032 | | AM PST | | | | + +--------+ +---------+------+------+ + +---+ | | | + +---+ | lactated ringers (LR) infusion | | | at 100 mL/hr, Intravenous, | | | CONTINUOUS, Starting 08/05/18 | | | at 1030, Pre-op | | + +---+ | | | + +---+ + +-------+ +-------+---+---+ | meperidine (DEMEROL) 100 mg/mL | Given | 08/05/20 | 75 mg | | | | injection PRN, Starting Tue | | 18 10:35 | | | | | 08/05/18 at 1035 | | AM PST | | | | + +-------+ +-------+---+---+ +---+---+ | | | +---+---+ + +-------+ +------+---+---+ | midazolam (VERSED) 5 mg/mL | Given | 08/05/20 | 1 mg | | | | injection PRN, Starting Sat | | 18 10:37 | | | | | 08/05/18 at 1037 | | AM PST | | | | + +-------+ +------+---+---+ + +---+ | | | + +---+ | ondansetron (ZOFRAN) injection | | | 4 mg 4 mg, Oral, EVERY 4 HOURS | | | PRN, Nausea, Vomiting, Starting | | | e 08/05/18 at 1112, | | | Recovery/Phase I | | + +---+ | | | + +---+ documented in this encounter
--- OUTSIDE RECORDS SUMMARY | ~2020-05-24 | XMS | Encounter Summary ---
Demographics + + + | Address | [facility] | | | [place] [address] | + + + | Home Phone | | + + + | Preferred Language | Unknown | + + + | Marital Status | Single | + + + | Rastafari Affiliation | 1041 | + + + | Race | Unknown | + + + | Ethnic Group | or | + + + Author + + + | Author | [facility] | | | and [place] | + + + | Organization | [facility] | [...] [place], [place] | | | | | [address] | | + + + + + | Amy Schneider | ECON | [address] | | | | | [place], [place] | | | | | [address] | | + + + + + | Alisha Schneider | ECON | Unknown | | + + + + + Care Team Providers + +------+ + | Care Assembler Product Name | Role | Phone | + +------+ + | Jet Chaney MD | PCP | | + +------+ + Reason for Referral Evaluate & Treat (Routine) + +--------+ + + + + | Status | Reason | Specialty | Diagnoses / | Referred By | Referred To | | | | | Procedures | Contact | Contact | + +--------+ + + + + | Pending | | Bariatrics | Diagnoses | Ritu, | [facility] | | Review | | | BMI | Jet Dempsey MD | [facility] | | | | | 36.0-36.9,ad | [address] | CLINIC | | | | | ult | [address] | [place]IE | | | | | Procedures | [place] | DEVEN | | | | | 05/10- PEND | [address] | [address] | | | | | [address] | Phone: | DEANA NAGEL | | | | | REVIEW | [phone] | [address] | | | | | | Fax: | [place], [place] | | | | | | [phone] | [address] | | | | | | | Phone: | | | | | | | [phone] | | | | | | | Fax: | | | | | | | [phone] | + +--------+ + + + + Reason for Visit + + + | Reason | Comments | + + + | Follow-up | | + + + | Fatigue | complains of being tired still. Wonders if her thyroid needs to | | | be adjusted | + + + | Hypertension | | + + + | Other | complains of feet and legs hurting and feel hot. Wonders if it is | | | because she is on her feet all day. | + + + Encounter Details +--------+---------+ + + + | Date | Type | Department | Care Team | Description | +--------+---------+ + + + | 05/02/ | Office | [facility] | Jet Chaney, | Hypothyroidism, | | 2020 | Visit | MEDICINE DATIL | [address] | unspecified type | | | | [address] | [place] | (Primary Dx); | | | | [place] | [address] | Controlled type 2 | | | | [address] | | diabetes mellitus | | | | [phone] | | with | | | | | | microalbuminuria, | | | | | | without long-term | | | | | | current use of | | | | | | insulin (HCC); | | | | | | Essential | | | | | | hypertension; | | | | | | Hodges's esophagus | | | | | | without dysplasia; | | | | | | Chronic gastritis | | | | | | without bleeding, | | | | | | unspecified | | | | | | gastritis type; BMI | | | | | | 36.0-36.9,adult | +--------+---------+ + + + Social History [...] + + + | Blood Pressure | 138/86 | 05/02/2020 5:01 PM | | | | | PDT | | + + + + + | Pulse | 81 | 05/02/2020 4:06 PM | | | | | PDT | | + + + + + | Temperature | 36.9 C (98.5 F) | 05/02/2020 4:06 PM | | | | | PDT | | + + + + + | Respiratory Rate | 16 | 05/02/2020 4:06 PM | | | | | PDT | | + + + + + | Oxygen Saturation | 100% | 05/02/2020 4:06 PM | | | | | PDT | | + + + + + | Inhaled Oxygen | - | - | | | Concentration | | | | + + + + + | Weight | 90.8 kg (200 lb 2.8 | 05/02/2020 4:06 PM | | | | oz) | PDT | | + + + + + | Height | - | - | | + + + + + | Body Mass Index | 36.61 | 12/18/2019 8:46 AM | | | | | PDT | | + + + + + documented in this encounter Patient Instructions Patient Instructions Jet Chaney MD - 05/02/2020 4:00 PM PDT Please stop by the lab for blood work. You need to be fasting - nothing to eat or drink ot her than water or black coffee for 10 hours. No alcohol for 24 hours. Please fast 10 hours on average prior to blood test. Water and black coffee are fine Lab Hours: [facility] Out-Patient draw stations: ? Family Medicine @ [address] : Saturday, 7:00am 12:30pm (closes at 12:30) ? Urgent Care @ [address]: Saturday & Saturday, 8:00am 7:00pm ? [facility] (across from hospital) [address] Hours: Saturday 7:00am-5:30pm If you do not hear from a weight loss surgery center within 2 weeks - please let us know. Quitting smoking is the best thing you can do for your health. Weight Management: Getting Started Healthy bodies come in all shapes and sizes. Not all bodies are made to be thin. For some p eople, a healthy weight is higher than the average weight listed on weight charts. Your [facility] provider can help you decide on a healthy weight for you. Reasons to lose weight Losing weight can help with some health problems, such as high blood pressure, heart diseas e, diabetes, sleep apnea, and arthritis. You may also feel more energy. Set [...] When you can stick to thi s plan,keep makinga few more small changes. Taking small steps will help you stay on the path to success. Track your progress Write down [...] to join you. Also look to your healthcare provider, r egistered dietitian, and senior professional services consultant for help. Your local hospital can give you mor e information about nutrition, exercise, and weight loss. Be sure to get a thorough checkup before you start any exercise program or change your diet. [employer] last reviewed this educational content on 12/15/201719999623-5955 [employer]. [address] [place] [address]. All righ ts reserved. This information is not intended as a substitute for professional medical care. Always follow your healthcare professional's instructions. Losing Weight for Heart Health Excess weight is a major risk factor for heart disease. Losing weight has many benefits inc luding lowering your blood pressure, improving your cholesterol level, and decreasing your r isk for diseases such as diabetes and heart disease. It may help keep your arteries open so that your heart can get the oxygen-rich blood it needs. All in all, losing weight makes you healthier and is one of the best ways to improve your heart's health. Calories and weight loss Calories are the fuel your body howe for energy. You get the calories you need from the food you eat. For healthy weight loss, women should eat at least 1,200 calories a day, men at least 1,500. When you eat more calories than you need, your body stores the extra calories as fat. On e pound (0.45 kg)of fat equals 3,500 calories. To lose weight, try to reduce your total calorie intake by 500 calories. To do this, eat 250 calories less each day. Add activity to burn the other 250 calories. Walking2.5mile s(4 km) howe about 250 calories. Other more intense activities can burn more calories in the time you spend doing them, such as swimming and running. It's important to understand th at reducing calorie intake is much more effective at weight loss than is exercise. Eat a variety of healthy foods to get the nutrients you need while you are cutting your calories to reduce your weight. Tips for losing weight Drink 8 to 10 glasses of water a day. Don t skip meals. Instead, eat smaller portions. Eat your meals earlier in the day. Cut out sugary drinks such as soda and fruit juices. Make your later meals order entry specialist than your earlier meals. Brisk activity is best Brisk activity gets your heart pumping faster and it makes it healthier. It s also a grea t way to burn calories. In fact, your body may keep burning calories for hours after you sto p a brisk activity: Start by walking 10 minutes most days. Add more time and speed to your walk. Build up as you feel able. Aim for at least 150 minutes of moderate-intensity aerobic activity such as brisk walkin g or 75 minutes of vigorous aerobic activity such as swimming laps each week to get the most health benefits. Get up a move and sit less. Sitting too much is linked with increased risk of heart dise ase. Moving more and sitting less can help cut this risk. The most important part of the activity is that you break a sweat. This means your heart is working hard enough to burn fat. [employer] last reviewed this educational content on 03/16/201919996432-3847 [employer]. [address] [place] [address]. All righ ts reserved. This information is not intended as a substitute for professional medical care. Always follow your healthcare professional's instructions. documented in this encounter Progress Notes Jet Chaney MD - 05/02/2020 4:00 PM PDTFormatting of this note might be different fr om the original. Subjective: Patient ID: Baudilio Schneider is a 39 y.o. female who is here today for Follow-up, Fatigue ([place] of being tired still. Wonders if her thyroid needs to be adjusted), Hypertension, and Other (complains of feet and legs hurting and feel hot. Wonders if it is because she is on her feet all day.) HPI She thinks her thyroid dose needs to be adjusted. She would like to recheck her levels. She is taking levothyroxine and Cytomel as prescribed. She feels tired all the time. She aches all over. She thought she would have lost more weight. She is taking lisinopril 20 mg daily. Tolerating fine. No light headedness, CP, SOB, cough. She feels her diet is good. She wonders about gastric sleeve. She resumed smoking - but just 2-3 cigarettes per week. Patient's medications, allergies, past medical, surgical, social and family histories were obtained and reviewed as appropriate. Current Outpatient Medications on File Prior to Visit Medication Sig Dispense Refill B Complex Vitamins (VITAMIN B COMPLEX PO) Take by mouth. Blood Glucose Monitoring Suppl (FREESTYLE LITE) BRANDY Test blood sugar once daily DX E11 .29 1 each 0 FREESTYLE LANCETS MISC Use to test blood sugar 1 time daily. DX E11.29 100 each 2 glucose blood test strips (FREESTYLE LITE) strip Use to test blood sugar 1 time joi y Dx E11.29 100 each 12 levonorgestrel (MIRENA) 20 MCG/24HR IUD 1 Device by Intrauterine route once for 1 dose. 1 Device 0 levothyroxine (SYNTHROID) 100 mcg tablet Take 100 mcg by mouth every morning (before br eakfast). liothyronine (CYTOMEL) 5 mcg tablet Take 1 tablet by mouth Daily. For low thyroid 30 ta blet lisinopril (PRINIVIL, ZESTRIL) 20 mg tablet Take 1 tablet by mouth Daily. To lower bloo d pressure 90 tablet 1 metFORMIN (GLUCOPHAGE-XR) 500 mg 24 hr tablet Take 2 tablets by mouth 2 times daily. Fo r diabetes 360 tablet 1 pantoprazole (PROTONIX) 40 mg tablet TAKE 1 TABLET BY MOUTH EVERY MORNING BEFORE BREAKF AST TO HELP STOMACH INFLAMMATION. 30 tablet 11 No current facility-administered medications on file prior to visit. Review of Systems Objective: BP 138/86 | Pulse 81 | Temp 36.9 C (98.5 F) (Temporal) | Resp 16 | Wt 90.8 kg (200 lb 2.8 oz) | SpO2 100% | BMI 36.61 kg/m Physical Exam Constitutional: Very pleasant, well developed, NAD Neck: Neck supple. No thyromegaly present. Cardiovascular: Normal rate, regular rhythm, normal heart sounds and intact distal pulses. Exam reveals no gallop and no friction rub. No murmur heard. Pulmonary/Chest: Breath sounds normal. No respiratory distress. She has no wheezes. She has no rales. Musculoskeletal: General: No edema. Lymphadenopathy: She has no cervical adenopathy. Assessment & Plan: 1. Hypothyroidism, unspecified type: Followed by Dr Stern. Possible thyroid is contribut ing to symptoms, but also explained that thyroid may not be the cause - Medications per Dr Stern. - TSH; Future 2. Controlled type 2 diabetes mellitus with microalbuminuria, without long-term current use of insulin (HCC): A1c and LDL well controlled. BP acceptable. Vaccines UTD. Due for eye exam - lisinopril (PRINIVIL, ZESTRIL) 20 mg tablet; Take 1 tablet by mouth Daily To lower blood pressure. Dispense: 90 tablet; Refill: 1 - metFORMIN (GLUCOPHAGE-XR) 500 mg 24 hr tablet; Take 2 tablets by mouth 2 times daily For diabetes. Dispense: 360 tablet; Refill: 1 3. Essential hypertension: Acceptable - lisinopril (PRINIVIL, ZESTRIL) 20 mg tablet; Take 1 tablet by mouth Daily To lower blood pressure. Dispense: 90 tablet; Refill: 1 4. Hodges's esophagus without dysplasia, Chronic gastritis without bleeding, unspecified g astritis type: Hodges's esophagus present in 2016, negative biopsies in 2018. Denies sympt oms of GERD. No red flag s/s - Consider repeat EGD next year - pantoprazole (PROTONIX) 40 mg tablet; Take 1 tablet by mouth every morning (before breakf ast) For heartburn, Hodges's esophagus. Dispense: 90 tablet; Refill: 3 6. BMI 36.0-36.9,adult - Diet, exercise, weight loss strategies reviewed - Educated on surgery options. Handout from UTD provided - Quit smoking - Bariatrics Weight Control, External - AMB Referral Return in about 4 months (around 09/01/2020), or if symptoms worsen or fail to improve. Prashanth Chaney MD documented in this e ncounter Plan of Treatment + + +--------+ + + | Name | Type | Priori | Associated Diagnoses | Order Schedule | | | | ty | | | + + +--------+ + + | Bariatrics Weight | Outpatient | Routin | BMI | Ordered: 05/02/2020 | | Control, External - | Referral | e | 36.0-36.9,adult | | | AMB Referral | | | | | + + +--------+ + + documented as of this encounter Results TSH (05/07/2020 10:37 AM PDT) + + + + + + | Component | Value | Ref Range | Performed | Pathologist | | | | | At | Signature | + + + + + + | TSH | 0.04 (L) | 0.55 - 4.78 | [facility] | | | | | uIU/mL | [facility] | | | | [...] | + + + + + | [facility] | [address] | [place] | [phone] | | [facility] | | [address] | | | - LABORATORY | | | | + + + + + documented in this encounter Visit Diagnoses + + | Diagnosis | + + | Hypothyroidism, unspecified type - Primary | + + | Controlled type 2 diabetes mellitus with microalbuminuria, without long-term current | | use of insulin (HCC) | + + | Essential hypertension Unspecified essential hypertension | + + | Hodges's esophagus without dysplasia Hodges's esophagus | + + | Chronic gastritis without bleeding, unspecified gastritis type | + + | BMI 36.0-36.9,adult Body Mass Index 36.0-36.9, adult | + + documented in this encounter"
--- OUTSIDE RECORDS SUMMARY | ~2020-05-24 | XMS | Encounter Summary ---
Demographics + + + | Address | [facility] | | | [place] [address] | + + + | Home Phone | | + + + | Preferred Language | Unknown | + + + | Marital Status | Single | + + + | Quaker Affiliation | 1041 | + + + | Race | Unknown | + + + | Ethnic Group | or | + + + Author + + + | Author | [facility] | | | and [place] | + + + | Organization | [facility] | | | and [place] [...] [place], [place] | | | | | [address] | | + + + + + | Amy Schneider | ECON | [address] | | | | | [place], [place] | | | | | [address] | | + + + + + | Alisha Schneider | ECON | Unknown | | + + + + + Care Team Providers + +------+ + | Care Paint Mixer Machine Name | Role | Phone | + [...] Closed | | Radiology | Diagnoses | Moore, | [facility] | | | | | Chronic | Eloy Yusuf MD | [address] | | | | | left-sided | [address] | [place], | | | | | low back | [address] | [place] | | | | | pain without | [place], | [address] | | | | | sciatica | [place] [address] | Phone: | | | | | Procedures | Phone: | [phone] | | | | | MRI Lumbar | [phone] | Fax: | | | | | Spine wo | Fax: | [phone] | | | | | Contrast | [phone] | | | | | | Called 03/11 | | | +--------+--------+ + + + + Reason for Visit Diagnostic/Screening (Routine) +--------+--------+ + + + + | Status | Reason | Specialty | Diagnoses / | Referred By | Referred To | | | | | Procedures | Contact | Contact | +--------+--------+ + + + + | Closed | | Radiology | Diagnoses | Moore, | [facility] | | | | | Chronic | Eloy Yusuf MD | [address] | | | | | left-sided | [address] | [place], | | | | | low back | [address] | [place] | | | | | pain without | [place], | [address] | | | | | sciatica | [place] [address] | Phone: | | | | | Procedures | Phone: | [phone] | | | | | MRI Lumbar | [phone] | Fax: | | | | | Spine wo | Fax: | [phone] | | | | | Contrast | [phone] | | | | | | Called 03/11 | | | +--------+--------+ + + + + Encounter Details +--------+ + + + + | Date | Type | Department | Care Team | Description | +--------+ + + + + | 03/14/ | Hospital | [facility] | Eloy Moore, | Chronic left-sided | | 2018 | Encounter | MED CTR MRI [address] | MD [address] | low back pain | | | | [address] [place], | [place], [place] | without sciatica | | | | [place] [address] | [address] | | | | | [phone] | | | +--------+ + + + [...] tablet by | 20 | 1 | 01/25/20 | | | (BISACODYL) 5 mg EC | mouth Daily as | tablet | | 18 | 8 | | tabletIndications: | needed for | [...] +---------+ + + | levothyroxine | Take 1 tablet by | 90 | 3 | 09/18/19 | | | (SYNTHROID) 75 MCG | mouth every morning | tablet | | 18 | 8 | | tabletIndications: | (before breakfast). | | | | | | Hypothyroidism, | For low thyroid | | | | | | unspecified type | | | | | | [...] | + +--------+ + + + | MRI LUMBAR SPINE WO | Routin | 03/14/2018 | Chronic left-sided | Results for this | | CONTRAST | e | 11:39 AM | low back pain | procedure are in the | | | | PDT | without sciatica | results section. | + +--------+ + + + documented in this encounter Results MRI Lumbar Spine wo Contrast (03/14/2018 11:39 AM PDT) + + | Specimen | + + | | + + + + + | Narrative | Performed At | + + + | TECHNIQUE: MRI of the lumbar spine with sequences to include | [facility] | | sagittal T1, sagittal STIR, axial T1, axial T2, sagittal T2, and | | | coronal T2. CLINICAL INFORMATION: Chronic Left Sided Low Back Pain | | | without Sciatica COMPARISON: MRI dated 11/25/[address] dated | | | 02/24/2018 FINDINGS: The lowest functional disc level is | | | presumed to represent L5/S1. The conus medullaris terminates at | | | T12-L1. The cauda equina appears normal. Normal bone marrow | | | signal characteristics. Normal alignment of the lumbar spine without | | | evidence of fracture or listhesis. Normal height of the vertebral | | | bodies. T12/L1: Unremarkable. L1/2: Unremarkable. L2/3: | | | Unremarkable. L3/4: Mild facet arthrosis. No spinal canal or | | | neural foraminal narrowing. L4/5: Mild bilateral facet arthrosis | | | and minimal concentric disc bulge without spinal canal or neural | | | foraminal narrowing. Tiny synovial cysts are again noted along the | | | posterior margin of the right L4-L5 facet joint. L5/S1: Mild | | | bilateral facet arthrosis. No spinal canal or neural foraminal | | | narrowing. Partially visualized left adnexal cystic structure | | | measuring up to 3.7 cm. IMPRESSION - Stable, early | | | degenerative changes of the mid to lower lumbar spine. Left | | | adnexal cystic structure measuring up to 3.7 cm. Dictated and | | | Signed by: Bear Quintanilla MD Electronically signed: 03/14/2018 | | | 2:50 PM | | + + + + + | Procedure Note | + + | Kranthi, Rad Results In - 03/14/2018 2:53 PM PDT | | TECHNIQUE: MRI of the lumbar spine with sequences to include sagittal T1, | | sagittal STIR, axial T1, axial T2, sagittal T2, and coronal T2. | | | | CLINICAL INFORMATION: Chronic Left Sided Low Back Pain without Sciatica | | | | COMPARISON: MRI dated 11/25/[address] dated 02/24/2018 | | | | FINDINGS: | | | | The lowest functional disc level is presumed to represent L5/S1. | | | | The conus medullaris terminates at T12-L1. The cauda equina appears normal. | | | | Normal bone marrow signal characteristics. Normal alignment of the lumbar spine | | without evidence of fracture or listhesis. Normal height of the vertebral | | bodies. | | | | T12/L1: Unremarkable. | | | | L1/2: Unremarkable. | | | | L2/3: Unremarkable. | | | | L3/4: Mild facet arthrosis. No spinal canal or neural foraminal narrowing. | | | | L4/5: Mild bilateral facet arthrosis and minimal concentric disc bulge without | | spinal canal or neural foraminal narrowing. Tiny synovial cysts are again noted | | along the posterior margin of the right L4-L5 facet joint. | | | | L5/S1: Mild bilateral facet arthrosis. No spinal canal or neural foraminal | | narrowing. | | | | Partially visualized left adnexal cystic structure measuring up to 3.7 cm. | | | | | | IMPRESSION - | | Stable, early degenerative changes of the mid to lower lumbar spine. | | | | Left adnexal cystic structure measuring up to 3.7 cm. | | | | Dictated and Signed by: Bear Quintanilla MD | | Electronically signed: 03/14/2018 2:50 PM | + + + +---------+ + + | Performing | Address | City/State[facility] | Phone Number | | Organization | | | | + +---------+ + + | [facility] | | | | + +---------+ + + documented in this encounter Visit Diagnoses + + | Diagnosis | + + | Chronic left-sided low back pain without sciatica | + + documented in this encounter"
--- OUTSIDE RECORDS SUMMARY | ~2020-05-24 | XMS | Encounter Summary ---
Demographics + + + | Address | [facility] | | | [place] [address] | + + + | Home Phone | | + + + | Preferred Language | Unknown | + + + | Marital Status | Single | + + + | Temple Affiliation | 1041 | + + + | Race | Unknown | + + + | Ethnic Group | or | + + + Author + + + | Author | [facility] | | | and [place] | + + + | Organization | [facility] | | | and [place] [...] [place], [place] | | | | | [address] | | + + + + + | Amy Schneider | ECON | [address] | | | | | [place], [place] | | | | | [address] | | + + + + + | Alisha Schneider | ECON | Unknown | | + + + + + Care Team Providers + +------+ + | Care Executive Talent Acquisition Consultant Name | Role | Phone | + +------+ + | Jet Chaney MD | PCP | | + +------+ + Reason for Visit +--------+--------+ + | Reason | Onset | Comments | | | Date | | +--------+--------+ + | Other | 01/12/ | | | | 2019 | | +--------+--------+ + Encounter Details +--------+ + + + + | Date | Type | Department | Care Team | Description | +--------+ + + + + | 01/12/ | Telephone | [facility] | Rosalio Wyatt, | Other | | 2019 | | PHYSIATRY [address] | PA-C [address] | | | | | [address] | [address] | | | | | [place] | [place] [address] | | | | | [address] | [phone] | | | | | [phone] | | | +--------+ + + + [...] this encounter Miscellaneous Notes Telephone Encounter - Marii Quintanilla 01/12/2019 11:00 AM Ngoc Schneider calling to see if she can schedule trigger points, patient was advised that we needed a FU prior to mor e trigger points, patient states she did not receive and trigger point injections at [facility] 12/02, please advise. d ocumented in this encounter Plan of Treatment Not on filedocumented as of this encounter Visit Diagnoses Not on filedocumented in this encounter"
--- OUTSIDE RECORDS SUMMARY | ~2020-05-24 | XMS | Encounter Summary ---
Demographics + + + | Address | [facility] | | | [place] [address] | + + + | Home Phone [...] + + | Author | [facility] [place] | | | and [place] | + + + | Organization | [facility] [place] | | | and [place] [...] [place], [place] | | | | | [address] | | + + + + + | Amy Schneider | ECON | [address] | | | | | [place], [place] | | | | | [address] | | + + + + + | Alisha Schneider | ECON | Unknown | | + + + + + Care Team Providers + +------+ + | Care Software Tools Developer Name | Role | Phone | + [...] Description | +--------+--------+ + + + | 04/22/ | Refill | [facility] | Jet Chaney, | Medication Refill | | 2020 | | [facility] | [address] | | | | | [address] | [place] | | | | | [place] | [address] | | | | | [address] | | | | | | [phone] | | | +--------+--------+ + + + Social History + + [...] + | Diagnosis | + + | Hodges's esophagus without dysplasia Hodges's esophagus | + + | Chronic gastritis without bleeding, unspecified gastritis type | + + documented in this encounter"
--- OUTSIDE RECORDS SUMMARY | ~2020-05-24 | XMS | Encounter Summary ---
Demographics + + + | Address | [facility] | | | [place] [address] | + + + | Home Phone | | + + + | Preferred Language | Unknown | + + + | Marital Status | Single | + + + | Nondenominational Affiliation | [id number] | + + + | Race | Unknown | + + + | Ethnic Group | or | + + + Author + + + | Author | [facility] [place] | | | and [place] | + + + | Organization | [facility] [place] | | | and [place] [...] [place], [place] | | | | | [address] | | + + + + + | Amy Schneider | ECON | [address] | | | | | [place], [place] | | | | | [address] | | + + + + + | Alisha Schneider | ECON | Unknown | | + + + + + Care Team Providers + +------+ + | Care Care Professional Name | Role | Phone | + +------+ + | Dot Paredes MD | PCP | | + +------+ + Encounter Details +--------+ + + + + | Date | Type | Department | Care Team | Description | +--------+ + + + + | 11/27/ | Hospital | [facility] | Bill, | | | 2010 | Encounter | [facility] EMER[facility]ENCY | Arun Yusuf MD [address] | | | | | [place] [address] | [place] [facility] | | | | | [place] | [place] [address] | | | | | [address] | [phone] | | | | | [phone] | | | +--------+ + + + [...] + + documented as of this encounter ED Notes Arun Khan MD - 11/27/2010 3:35 PM PDTDATE: 11/27/2010 TIME OF EXAM: 1622 CHIEF COMPLAINT: Shortness of breath, chest pain. PRIMARY CARE: Dr. Luna. HISTORY OF PRESENT ILLNESS: A 30-year-old female ambulates into the Emergency Department today with intermittent symptoms of "bruised feeling" in the left central portion of her chest, associated with some dyspnea. These have been going on off and on for some time. This has been worsened since which incidentally correlates with the increasing dose of multiple diet medications. She has bee n on the diet medicines for 11 days, but again the dose just increased yesterday. These include niacin, thiamine a s well as multiple other medications. She has not felt particularly short of breath although she states when she st arted feeling a little bit of "heaviness" in her left arm she became very hyperventilatory and concerned. She has had no fevers, chills, injury, trauma abdominal pain, nausea, vomiting, diarrhea, headache, back pain. PAST MEDICAL HISTORY: Hypothyroidism. CURRENT MEDICATIONS: Levoxyl. ALLERGIES: NONE. REVIEW OF SYSTEMS: Ten systems negative except noted above. SOCIAL HISTORY: Occasionally smokes. PHYSICAL EXAM VITAL SIGNS: Blood pressure 127/75, heart rate 64, respirations 16, temperature 98.8, O2 saturation 100%. GENERAL APPEARANCE: This is a female, sitting up, speaking normally. HEENT: Atraumatic. Pupils equal, round, reactive. Oropharynx benign. NECK: Supple without JVD or lymphadenopathy. CHEST: Clear to auscultation bilaterally without wheezes or crackles. CV: Normal S1, S2. ABDOMEN: Soft. There is no tenderness, masses, rebound, or guarding. BACK: No flank pain. EXTREMITIES: Nontender. No edema. No calf asymmetry. Present distal pulses. NEUROLOGIC: Alert and oriented. Gait and speech are normal. Cranial nerves 2- 12 intact, 5/5 strength upper and lower extremities. EMERGENCY DEPARTMENT COURSE: I did check a portable chest x-ray, which appears clear. A 12-lead EKG also obtained showing a sinus rhythm at a rate of 65 normal axis and interva ls. T-wave inversions isolated in lead III. No acute findings. MEDICAL DECISION MAKING: We did try Maalox which did not really help her symptoms much. I think these symptoms do correlate with the increasing dose of her dietary medications. I have re commended that she cut those back. I reassured her at this point, this does not appear harmful. She is to ret urn if symptoms worsen or otherwise, follow up with her doctor. IMPRESSION: NONSPECIFIC LEFT-SIDED CHEST PAIN. DICTATED BY: Arun Khan MD Emergency Medicine JOB #: [id number] EXT JOB #:[id number] <Electronicall y Signed by Arun Khan MD> 11/30/10 1706 documented in this encounter Plan of Treatment Not on filedocumented as of this encounter Procedures + +--------+ + + + | Procedure Name | Priori | Date/Time | Associated Diagnosis | Comments | | | ty | | | | + +--------+ + + + | XR CHEST AP PORTABLE | | 11/27/2010 | | Results for this | | | | 3:35 PM | | procedure are in the | | | | PDT | | results section. | + +--------+ + + + documented in this encounter Results XR Chest AP Portable (11/27/2010 3:35 PM PDT) + + | Specimen | + + | | + + + + + | Narrative | Performed At | + + + | [facility] | [facility] | | [address] [facility] | [facility] | | 11/27/2010, PORTABLE CHEST | DIAG IMG | | CLINICAL HISTORY: CHEST PAIN. TECHNIQUE: Single views of the | | | chest were obtained at 1655 and 1705 hours. No prior studies are | | | available for comparison. FINDINGS: The mediastinal and cardiac | | | silhouette are unremarkable. No significant central pulmonary | | | vascular prominence is seen. No radiographically detectable pleural | | | effusion or pneumothorax is identified. Lung anand are clear | | | without infiltrate or consolidate. Osseous elements as visualized | | | are normal in appearance. IMPRESSION: 1. UNREMARKABLE | | | APPEARANCE OF THE THORAX WITHOUT EVIDENCE OF ACUTE PROCESS. | | | Dictated Date/Time: 11/28/2010 08:29 Transcribed Date/Time: | | | 11/28/2010 11:21 Shallot Cleaner: <Electronically Signed | | | by Hill Casey DO> 11/28/10 1351 | | + + + + -----+ | Procedure Note | + -----+ | Kranthi, Rad Conversion - 10/23/2013 2:27 PM [facility] | | Diagnostic Imaging Department [address] [facility] | | 11/27/2010, PORTABLE CHEST CLINICAL HISTORY: CHEST | | PAIN. TECHNIQUE: Single views of the chest were obtained at 1655 and 1705 hours. No | | prior studies are available for comparison. FINDINGS: The mediastinal and cardiac | | silhouette are unremarkable. No significant central pulmonary vascular prominence is | | seen. No radiographically detectable pleural effusion or pneumothorax is identified. | | Lung anand are clear without infiltrate or consolidate. Osseous elements as visualized | | are normal in appearance. IMPRESSION: 1. UNREMARKABLE APPEARANCE OF THE THORAX | | WITHOUT EVIDENCE OF ACUTE PROCESS. Dictated Date/Time: 11/28/2010 08:29 Transcribed | | Date/Time: 11/28/2010 11:21 Shallot Cleaner: <Electronically Signed by Hill Holder | | DO Jacinto> 11/28/10 7343 | | | |FINDINGS: The mediastinal and cardiac silhouette are unremarkable. No significant central | |pulmonary vascular prominence is seen. No radiographically detectable pleural effusion or | |pneumothorax is identified. Lung anand are clear without infiltrate or consolidate. Osse ous | |elements as visualized are normal in appearance. | | | |IMPRESSION: | |1. UNREMARKABLE APPEARANCE OF THE THORAX WITHOUT EVIDENCE OF ACUTE | |PROCESS. | | | |Dictated Date/Time: 11/28/2010 08:29 | |Transcribed Date/Time: 11/28/2010 11:21 | |Shallot Cleaner: | |<Electronically Signed by Hill Casey DO> 11/28/10 1351 | + -----+ + +---------+ + + | Performing | Address | City/State/Zipcode | Phone Number | | Organization | | | | + +---------+ + + | [place] | | | | | [place] | | | | + +---------+ + + documented in this encounter Visit Diagnoses Not on filedocumented in this encounter
--- OUTSIDE RECORDS SUMMARY | ~2020-05-24 | XMS | Encounter Summary ---
Demographics + + + | Address | [facility] | | | [place] [address] | + + + | Home Phone [...] [facility] [place] | | | and [place] [...] [place], [place] | | | | | [address] | | + + + + + | Amy Schneider | ECON | [address] | | | | | [place], [place] | | | | | [address] | | + + + + + | Alisha Schneider | ECON | Unknown | | + + + + + Care Team Providers + +------+ + | Care Product Marketing Specialist Name | Role | Phone | + +------+ + | Dot Paredes MD | PCP | | + +------+ + Encounter Details +--------+ + + + + | Date | Type | Department | Care Team | Description | +--------+ + + + + | 04/24/ | Hospital | [facility] | | | | 2009 | Encounter | MED CTR LABORATORY | | | | | | [address] | | | | | | [place] | | | | | | [address] | | | | | | [phone] | | | +--------+ + + + [...]
--- OUTSIDE RECORDS SUMMARY | ~2020-05-24 | XMS | Encounter Summary ---
Demographics + + + | Address | [facility] | | | [place] [address] | + + + | Home Phone [...] + + + | Author | [facility] [place] | | | and [place] | + + + | Organization | [facility] [place] | | | and [place] [...] [place], [place] | | | | | [address] | | + + + + + | Amy Schneider | ECON | [address] | | | | | [place], [place] | | | | | [address] | | + + + + + | Alisha Schneider | ECON | Unknown | | + + + + + Care Team Providers + +------+ + | Care Screen Maker Name | Role | Phone | + +------+ + | Jet Chaney MD | PCP | | + +------+ + Reason for Visit + + + | Reason | Comments | + + + | Follow-up | Trigger Point Injection 06/12/18 | + + + Encounter Details +--------+---------+ + + + | Date | Type | Department | Care Team | Description | +--------+---------+ + + + | 08/18/ | Office | [facility] | Rosalio Wyatt, | Back pain, | | 2018 | Visit | PHYSIATRY [address] | PA-C [address] | unspecified back | | | | [address] [place] | location, | | | | [place], [place] | [place] [address] | unspecified back | | | | [address] | [phone] | pain laterality, | | | | [phone] | | unspecified | | | | | | chronicity (Primary | | | | | | Dx) | +--------+---------+ + + + Social History [...] + + + | Blood Pressure | 131/91 | 08/18/2018 4:17 PM | | | | | PST | | + + + + + | Pulse | 73 | 08/18/2018 4:17 PM | | | | | PST [...] | 88.5 kg (195 lb 1.7 | 08/18/2018 4:17 PM | | | | oz) | PST | | + + + + + | Height | 157.5 cm (5' 2") | 08/18/2018 4:17 PM | | | | | PST | | + + + + + | Body Mass Index | 35.69 | 08/18/2018 4:17 PM | | | | | PST | | + + + + + documented in this encounter Patient Instructions Patient Instructions Rosalio Wyatt PA-C - 08/18/2018 4:20 PM PSTFormatting of this note m ight be different from the original. Return in 1 month for trigger point injections. Trigger Point Injection The cause of your muscle pain or spasms may be one or more trigger points. Your healthcare provider may decide to inject the painful spots to relax the muscle. This can help relieve y our pain. Relaxing the muscle can also make movement easier. You may then be able to exercis e to strengthen the muscle and help it heal. What is a trigger point? A trigger [...] muscles are more likely to be injured. Injecting a trigger point can help relax [...] puncture (pneumothorax) Nerve damage Date Last Reviewed: 12/15/201719991683-7630 [employer]. [address] [place] [address], [place] [address]. All [facility] reserved. This information is not intended as a substitute for professional medical care. Always follow your healthcare professional's instructions. documented in this encounter Progress Notes Rosalio Wyatt PA-C - 08/18/2018 4:20 PM PSTFormatting of this note might be different fro m the original. Rosalio Wyatt PA-C [address] [facility] [address] [place] [address] FAX: CHIEF COMPLAINT: Chief Complaint Patient presents with Follow-up Trigger Point Injection 06/12/18 HISTORY OF PRESENT ILLNESS: The patient is a 38 y.o. female being seen today in follow-up for complaints of low back pa in. The patient has been seen for this complaint in the past. Previously it was recommend ed that she have trigger point injections which she had on 06/12/18 with great relief. She r eports that the treatment was effective and her current pain is only a 1-2 on scale of 0-10. She describes the pain as aching. Her symptoms worsen with bending forward. Her sympto ms improve with rest. The patient does not describe numbness of the legs. She does not r eport weakness of the legs. She does not have bowel and bladder dysfunction. She does not have saddle anesthesia. Patient's medications, allergies, past medical, surgical, social and family histories were reviewed and updated as appropriate. CURRENT MEDICATIONS: Current Outpatient Prescriptions Medication Sig Dispense Refill bisacodyl (BISACODYL) 5 mg EC tablet Take 1 tablet by mouth Daily as needed for Constip ation. 20 tablet 1 Cholecalciferol (VITAMIN D3) 5000 UNITS CAPS Take 5,000 Units by mouth Daily. docusate sodium (COLACE) 100 mg capsule Take 1 capsule by mouth Daily. To help constipa tion 90 capsule 1 fish oil 1,000 mg capsule Take 2,000 mg by mouth Daily. gabapentin (NEURONTIN) 300 mg capsule 1 capsule by mouth at bedtime for one week, then 2 capsules by mouth. (Patient taking differently: as needed. 1 capsule by mouth at bedtime f or one week, then 2 capsules by mouth.) 120 capsule 1 levonorgestrel (MIRENA) 20 MCG/24HR IUD 1 Device by Intrauterine route once for 1 dose. 1 Device 0 levothyroxine (SYNTHROID) 88 mcg tablet Take 88 mcg by mouth every morning (before jerome kfast). Multiple Vitamins-Minerals (WOMENS ONE DAILY PO) Take 1 tablet by mouth Daily. nortriptyline (PAMELOR) 10 MG capsule 1 capsule by mouth at bedtime for 7 days; then 2 at bedtime for 7 days; then 3 at bedtime for 7 days; then 4 at bedtime (Patient taking diffe rently: Take 10 mg by mouth nightly as needed. 1 capsule by mouth at bedtime for 7 days; the n 2 at bedtime for 7 days; then 3 at bedtime for 7 days; then 4 at bedtime) 120 capsule 1 pantoprazole (PROTONIX) 40 mg tablet Take 1 tablet by mouth every morning (before break fast). To help stomach inflammation (Patient taking differently: Take 40 mg by mouth Daily a s needed. To help stomach inflammation) 30 tablet 5 No current facility-administered medications for this visit. ALLERGIES: Allergies Allergen Reactions Hydrocodone Hives and Shortness Of Breath REVIEW OF SYSTEMS: GENERALLY: No fever, chills, no night sweats, no fatigue, no weight loss, no weight gain. EYES: No vision changes. EARS, NOSE, AND THROAT: No hearing loss, no ear pain, no nosebleeds, no toothache, no gum p roblems, no significant snoring or sleep apnea, no seasonal allergies, no difficulty swallow ing, no hoarseness. NEUROMUSCULAR: Please see the review of systems discussed above in the history of present illness. In addition, the patient has no dizziness, no blackouts, no headaches. PSYCHIATRIC: No depression, no difficulty sleeping, no anxiety, no memory loss. CARDIOVASCULAR: No chest pain, no palpitations, no swollen ankles. PULMONARY: No shortness of breath, no cough. GASTROINTESTINAL: No poor appetite, no diarrhea, no nausea or vomiting, no bowel incontine nce, no hemorrhoids, no constipation, no abdominal pain. GENITOURINARY: No urinary difficulty and no incontinence. SKIN: No rashes. HEMATOLOGIC/LYMPHATIC: No enlarged lymph nodes or swollen glands. ENDOCRINE: No diabetes, no thyroid disease, no osteopenia or osteoporosis, no breast drain age. RHEUMATOLOGIC: No osteoarthritis, no rheumatoid arthritis. PHYSICAL EXAMINATION: Blood pressure (!) 131/91, pulse 73, height 1.575 m (5' 2"), weight 88.5 kg (195 lb 1.7 oz) , not currently . Body mass index is 35.69 kg/m. GENERAL: The patient is well developed and well nourished. She does not appear uncomfortab le when seated. HEENT: Normocephalic and atraumatic. Normal sclerae without icterus. NECK (ANTERIOR): There is no apparent cervical lymphadenopathy or thyromegaly. PULMONARY: The patient is in no acute respiratory distress with unlabored respirations. CARDIOVASCULAR: Regular rate and rhythm. There is not lower extremity edema. ABDOMEN: Non-distended. SKIN: Limited skin exam shows no significant rashes or lesions. There are not scars in the region. NEUROLOGIC: The patient is awake, alert, and oriented. She follows simple and complex commands. Her speech is fluent. She comprehends speech well. She has no apparent deficits with short or terminal clerk memory. The cranial nerves appear grossly intact. Sensory exam does not show diminished sensation to light touch in the lower extremities. REFLEX: RIGHT LEFT PATELLAR 2+ 2+ ACHILLES 2+ 2+ MUSCULOSKELETAL : Straight leg raise and slump-sit are negative. Bear's maneuver and im pingement testing were negative for any groin pain. There was no tenderness to palpation ov er the greater trochanters or sacral sulci. The patient localized the majority of the pain to the bilateral L3-L5 region. Lumbar facet loading was negative. Strength testing showed 5/5 strength throughout the lower extremities. The patient was able to heel and toe walk wi thout difficulty. There was no redness, effusion, warmth or joint line tenderness in the kn ees or ankles. RADIOGRAPHIC REVIEW: None reviewed ASSESSMENT: Encounter Diagnosis Name Primary? Back pain, unspecified back location, unspecified back pain laterality, unspecified chr onicity Yes PLAN: 1) Today we discussed the patient's differential diagnosis with the likely primary issue be ing low back pain. Patient's description of symptoms, physical exam, and imaging suggest th is diagnosis at this time. 2) I counseled patient on treatment options which included conservative self management usi ng OTC NSAIDs/Ice and heat packs, physical therapy, prescription medications, epidural stero id injection, as well as possible surgical intervention. 3) Imaging: As descibed above in radiology review. 4) The patient has had significant relief following prior trigger point injections (06/12/18 ). She will return in one month for repeat trigger point injections. She was not in enough d iscomfort today to warrant trigger point injections. I spent 30 minutes in visit with Baudilio Schneider today with the majority of time spent counse lling the patient on her diagnosis, options for her care, and coordinating her care. ELECTRONICALLY SIGNED BY: Rosalio Wyatt PA-C, 08/18/2018 16:32 documented in this en counter Plan of Treatment Not on filedocumented as of this encounter Visit Diagnoses + + | Diagnosis | + + | Back pain, unspecified back location, unspecified back pain laterality, unspecified | | chronicity - Primary | + + documented in this encounter
--- OUTSIDE RECORDS SUMMARY | ~2020-05-24 | XMS | Encounter Summary ---
Demographics + + + | Address | [facility] | | | [place] [address] | + + + | Home Phone | | + + + | Preferred Language | Unknown | + + + | Marital Status | Single | + + + | Hoahaoism Affiliation | [id number] | + + + | Race | Unknown | + + + | Ethnic Group | or | + + + Author + + + | Author | [facility] | | | and [place] | + + + | Organization | [facility] | | | and [place] [...] [place], [place] | | | | | [address] | | + + + + + | Amy Schneider | ECON | [address] | | | | | [place], [place] | | | | | [address] | | + + + + + | Alisha Schneider | ECON | Unknown | | + + + + + Care Team Providers + +------+ + | Care Tone Cabinet Assembler Name | Role | Phone | + [...] | | | | Diagnoses | | Rubén, | | | | | Abdominal | | Hill Holder MD | | | | | bloating | | [address], | | | | | Constipation | | [address] | | | | | , | | [place], | | | | | unspecified | | [place] [address] | | | | | constipation | | Phone: | | | | | type | | [phone] | | | | | Procedures | | Fax: | | | | | NE | | [phone] | | | | | COLONOSCOPY | | | | | | | FLX DX | | | | | | | W/COLLJ SPEC | | | | | | | WHEN PFRMD | | | | | | | NE | | | | | | | COLONOSCOPY | | | | | | | W/BIOPSY | | | | | | | SINGLE/MULTI | | | | | | | PLE NE | | | | | | | COLSC FLX | | | | | | | W/RMVL OF | | | | | | | TUMOR POLYP | | | | | | | LESION SNARE | | | | | | | TQ | | | | | | | COLONOSCOPY | | | +--------+--------+ + + + + Encounter Details +--------+ + + + + | Date | Type | Department | Care Team | Description | +--------+ + + + + | 04/02/ | Hospital | [facility] | Hill [place] MD | Abdominal bloating; | | 2019 | Encounter | [facility] | [address], [address] | Constipation, | | | | [address] | [address] [place], [place] | unspecified | | | | [place], [place] | [address] | constipation type | | | | [address] | | | | | | [phone] | | | +--------+ + + + [...] + + + | Blood Pressure | 124/85 | 04/02/2019 10:35 AM | | | | | PDT | | + + + + + | Pulse | 64 | 04/02/2019 10:35 AM | | | | | PDT | | + + + + + | Temperature | 36.4 C (97.5 F) | 04/02/2019 9:37 AM | | | | | PDT | | + + + + + | Respiratory Rate | 18 | 04/02/2019 10:50 AM | | | | | PDT | | + + + + + | Oxygen Saturation | 97% | 04/02/2019 10:50 AM | | | | | PDT | | + + + + + | Inhaled Oxygen | - | - | | | Concentration | | | | + + + + + | Weight | 96.2 kg (212 lb 1.3 | 04/02/2019 9:37 AM | | | | oz) | PDT | | + + + + + | Height | 157.5 cm (5' 2") | 04/02/2019 9:37 AM | | | | | PDT | | + + + + + | Body Mass Index | 38.79 | 04/02/2019 9:37 AM | | | | | PDT | | + + + + + documented in this encounter Medications at Time [...] + +---------+ + + | liothyronine | | | 0 | 03/31/20 | | | (CYTOMEL) 5 mcg | | | | 19 | 9 | [...] + + + +---------+ + + | polyethylene | | | 0 | 03/28/20 | | | glycol-electrolytes | | | | 19 | 9 | | (NULUCYTELY) 420 g | | | | | | | solution | | | | | | + + + +---------+ + + | venlafaxine | Take 75 mg by mouth | | 0 | | | | (EFFEXOR) 75 MG | Daily. | | | | 9 | | tablet | | | | | | + + + +---------+ + + documented as of this encounter H&P Notes Hill [place] MD - 04/02/2019 10:03 AM PDTThe patient has no questions consent form was s igned pulse 62 O2 sat 100 blood pressure 145/96 iliya Soriano ARNP - 03/16/2019 9:00 AM PDTFormatting of thi s note might be different from the original. PATIENT NAME: Baudilio Schneider : 1980: AGE: 38 y.o. REFERRED BY: Jet Chaney PRIMARY CARE: Jet Chaney MD Subjective: CHIEF COMPLAINT: Baudilio Schneider is a 38 y.o. female is here for a follow up. She is being seen today for abd ominal pain. HISTORY OF PRESENT ILLNESS: Patient notes abdominal discomfort since at least 2012. She states that if she eats anythin g she will feel a heaviness in upper abdomen. She has not noticed certain foods that worsen this. She can have a burning sensation in mid abdomen. She notes early satiety. She denies heartburn or regular nausea. Protonix has not helped. She has had 3 EGDs since 2012. She denies . She reports that she has an IUD. She has had recent issues with kidney stones. gastric emptying study done 09/2018 was unremarkable. Tissue transglutaminase has been negative. She has been limiting sugars, breads, and fats. She states that she was given Amitiza 8 mcg bid. She states that she is unsure if it helped with the bloating, but it did help with constipation for the first week. She denies blood i n the stool. She has tried Miralax, psyllium, laxatives, stool softeners, and laxative teas. They will help in the short term, but no oil heaterman relief. Denies family history of colon cancer. MEDICAL, SURGICAL, AND PERSONAL HISTORY BP 126/82 | Pulse 68 | Temp 36.7 C (98 F) (Temporal) | Resp 14 | Wt 97.4 kg (214 lb 11.7 oz) | SpO2 98% | BMI 39.27 kg/m Allergies Allergen Reactions Hydrocodone Hives and Shortness Of Breath Past Medical History: Diagnosis Date Allergy Cervical [...] disorder Tobacco abuse 02/23/2014 Vitamin D deficiency Past Surgical History: Procedure Laterality Date CHOLECYSTECTOMY 2000 ENDOSCOPY 09/21/2013 weakened lower esophageal sphincter, gastritis biopsied, pathology negative - Dr Montana at [facility] INTRAUTERINE DEVICE INSERTION 07/12/2015 Mirena - Dr Kaur at [facility] TONSILLECTOMY 11/01/2009 chronic tonsillitis, severely hypertrophic tonsils with upper airway obstruction - Dr Farhat thompson at [facility] UPPER GASTROINTESTINAL ENDOSCOPY N/A 08/28/2016 Procedure: EGD; Surgeon: Hill [place] MD; Location: [facility] UPPER GASTROINTESTINAL ENDOSCOPY N/A 08/05/2018 Procedure: EGD; Surgeon: Hill [place] MD; Location: [facility] Family History Problem Relation Age of Onset Diabetes Father High blood pressure Father Kidney disease Father Coronary artery disease Father 62 High blood pressure Sister Kidney disease Paternal Grandfather Depression Sister No known problems Mother No known problems Maternal Grandmother No known problems Maternal Grandfather No known problems Paternal Grandmother Colon cancer Paternal Uncle Breast cancer Neg Hx Social History Socioeconomic History Marital status: Single Spouse name: Luke Number of children: 5 Years of education: Not on file Highest education level: Not on file Social Needs Financial resource strain: Not on file Food insecurity - worry: Not on file Food insecurity - inability: Not on file Transportation needs - medical: Not on file Transportation needs - non-medical: Not on file Occupational History Employer: [employer] Comment: [employer] in [place] Tobacco Use Smoking status: Current Some Day Smoker Packs/day: 0.10 Years: 5.00 Pack years: 0.50 Types: Cigarettes Smokeless tobacco: Never Used Tobacco comment: 1-2 cigs daily Substance and Sexual Activity Alcohol use: No Alcohol/week: 0.0 oz Drug use: No Sexual activity: Yes Partners: Male Comment: Mirena IUD 09/2015 Other Topics Concern Not on file Social History Narrative Marital Status: . 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 Respiratory: Negative for cough, shortness of breath and wheezing. Cardiovascular: Negative for chest pain, palpitations and leg swelling. Gastrointestinal: Negative except as stated above Objective: Physical Exam Constitutional: She is oriented to person, place, and time. She appears well-developed and well-nourished. HENT: Head: Normocephalic and atraumatic. Eyes: EOM are normal. No scleral icterus. Neck: Normal range of motion. Neck supple. Cardiovascular: Normal rate, regular rhythm and normal heart sounds. Pulmonary/Chest: Effort normal and breath sounds normal. No respiratory distress. She has n o wheezes. Abdominal: Soft. Normal appearance and bowel sounds are normal. She exhibits no ascites and no mass. There is no splenomegaly or hepatomegaly. There is generalized tenderness. There i s no rigidity, no rebound, no guarding and negative Cotton's sign. Musculoskeletal: Normal range of motion. She exhibits no edema or deformity. Neurological: She is alert and oriented to person, place, and time. Skin: Skin is warm and dry. No rash noted. Psychiatric: She has a normal mood and affect. Her behavior is normal. Nursing note and vitals reviewed. : No visits with results within 1 Month(s) from this visit. Latest known visit with results is: Office Visit on 01/02/2019 Component Date Value Ref Range Status Color, UA, POC 01/02/2019 Nellie* Yellow, Light Yellow Final Clarity, UA, POC 01/02/2019 Cloudy Final Glucose, UA, POC 01/02/2019 250 mg/dL* Negative Final Bilirubin, UA, POC 01/02/2019 Negative Negative Final Ketones, UA, POC 01/02/2019 Trace* Negative, 100 mg/dL Final Specific [place], UA, POC 01/02/2019 1.025 1.001 - 1.030 Final Blood, UA, POC 01/02/2019 Negative Negative Final pH, UA, POC 01/02/2019 6.5 5.0, 6.0, 7.0, 8.0, 5.5, 6.5, 7.5 Final Protein, UA, POC 01/02/2019 100 mg/dL* Negative Final Urobilinogen, UA, POC 01/02/2019 0.2 0.2, Negative, Normal, < 0.2 mg/dL, 1 mg/dL, < 0. 2 E.U./dl, 1.0 E.U./dL, 0.2 mg/dL Final Nitrite, UA, POC 01/02/2019 Negative Negative Final Leukocyte Esterase, UA, POC 01/02/2019 Negative Negative Final Color 01/02/2019 Yellow Light Yellow, Yellow, Straw Final Clarity 01/02/2019 Hazy* Clear Final pH, Urine 01/02/2019 6.0 5.0 - 8.0 Final Specific [place] 01/02/2019 1.026 1.001 - 1.030 Final Protein, Urine 01/02/2019 30 mg/dL* Negative Final Blood, Urine 01/02/2019 Negative Negative Final Glucose, Urine 01/02/2019 50 mg/dL* Negative Final Ketones, Urine 01/02/2019 Negative Negative Final Bilirubin, Urine 01/02/2019 Negative Negative Final Nitrite, Urine 01/02/2019 Negative Negative Final Leukocyte Esterase, Urine 01/02/2019 Negative Negative Final Urobilinogen, Urine 01/02/2019 Negative 0.2 mg/dL, 1.0 mg/dL, Negative Final WBC UA 01/02/2019 0-2 0 - 2 /HPF Final RBC UA 01/02/2019 0-2 0 - 2 /HPF Final SQUAMOUS EPITHELIAL UA 01/02/2019 10-15* 0 - 2 /LPF Final BACTERIA UA 01/02/2019 Negative Negative /HPF Final MUCUS UA 01/02/2019 Present* Negative /LPF Final URINE COMMENT 01/02/2019 Urine Culture Not Indicated Final EGD 08/05/2018: Impression: - Normal cricopharyngeus, upper third of esophagus, middle third of esophagus and lower third of esophagus. - Z-line irregular, 35 cm from the incisors. Biopsied. - Patulous lower esophageal sphincter. - Erythematous mucosa in the antrum. Biopsied. - Normal duodenal bulb, first portion of the duodenum, second portion of the duodenum, area of the papilla and third portion of the duodenum. Biopsied. - The retroflexed view confirmed previous findings, Gastric emptying study 09/25/2018: IMPRESSION - Normal gastric emptying study. Assessment: 1. Constipation, unspecified constipation type 2. Abdominal bloating 3. Early satiety 4. Impaired fasting glucose Plan: Patient to have colonoscopy for further evaluation. The procedural techniques, risks, indic ations, and alternatives were discussed. Among the risks, are perforation, bleeding, infect ion, allergic/adverse reactions to medications, and cardiovascular complications. Each of t hese could result in hospitalization, additional procedures (including surgery), or other li fe threatening complications. Patient verbalized understanding. Risk factors to colo-rectal cancer discussed with patient including smoking, obesity, excessive red meat ingestion, adv ancing age and first degree family relative with history of colo-rectal cancer discussed wit h patient. Patient to call with any questions or concerns prior to procedure. If discomfort improves following bowel preparation, will consider Amitiza 24 mcg or Linzess . If colonoscopy is unremarkable and discomfort persists, will then order MR enterography. Will follow up with results. Patient is to call with any question or concerns. Any fevers, chills, chest pain, SOB or other serious symptoms patient is to call the office or go to ER . CC: Jet Chaney MD This note was dictated using voice recognition software. Please contact me if there are an y questions regarding its content.Electronically signed by JUVENCIO Pollock at 03/17 7:28 AM PDTdocumented in this encounter Miscellaneous Notes Op Note - Hill Montana MD - 04/02/2019 10:25 AM PDTColonoscopy was within normal limits. The patient will follow up with nilsa Soriano in the office. IV conscious sedation was administered or supervised from 10:04 AM until 10:27 AMElectronic ally signed by Hill Montana MD at 04/02/2019 10:27 AM PDTD-C Instructions Provation - Hill Gomez i, MD - 04/02/2019 10:00 AM PDTDischarge Instructions for Colonoscopy Exams Patient: Baudilio Schneider : 1980 Acct: [id number] Exam Date: March Doctor: Hill Montana MD You have had an examination of the gastrointestinal tract. The chances of difficulty following this procedure are minimal. The following instructions will assist you in your recovery. ACTIVITIES: Rest quietly until sedation wears off. DO NOT drive a motor vehicle or operate machinery for 24 hours after sedation. Be cautious making critical decisions for 24 hours after sedation. DIET: If throat has been sprayed, do not eat or drink for 1 hour after. Start with a swallow of tap water, if you experience any lack of sensation in your throat, wait another 30 - 60 minutes and start with water again. Once swallowing has returned to normal you may resume your usual diet unless otherwise instructed by your physician. DISCOMFORT: If you had a bowel exam, you may have some abdominal discomfort from the air put into your bowel during the exam. Moving about will help you pass this air. Sometimes the medications given to you during the exam can aggravate the veins. The chemical irritation can cause inflammation or pain along the arm with redness, swelling and warmth. This does not mean there is an infection. You can treat the affected area by applying warm,wet compresses (towels) 4 times a day for 20 minutes at a time until inflammation is resolved. REPORT TO YOUR DOCTOR: Unusual abdominal pain Chest pain or unusual shortness of breath Shoulder pain Nausea, vomiting Fever over 100 degrees, chills Signs of rectal bleeding (red or black stools) Any concern you have resulting from procedure You may reach your physician at Work: . If unable to reach your physician, call [facility] Emergency Department at Ext. [phone] Your doctor recommends these additional instructions: You have a contact number available for emergencies. The signs and symptoms of potential delayed complications were discussed with you. You may return to normal activities tomorrow. Written discharge instructions were provided to you. You are being discharged to home. Resume your previous diet today. Continue your present medications. Return to your nurse practitioner at appointment to be scheduled. Telephone your GI clinic if symptoms are present. These instructions have been explained to the patient and/or escort. A copy has been given to the patient/escort. Nurse Signature Patient Signature Escort Signature Date Hill [place] MD 04/02/2019 10:30:27 AM This report has been signed electronically.Electronically signed by Hill [place] MD at 10:30 AM PDTdocumented in this encounter Plan of Treatment Not on filedocumented as of this encounter Procedures + +--------+ + + + | Procedure Name | Priori | Date/Time | Associated Diagnosis | Comments | | | ty | | | | + +--------+ + + + | COLONOSCOPY | Routin | 04/02/2019 | | Results for this | | | e | 10:00 AM | | procedure are in the | | | | PDT | | results section. | + +--------+ + + + | COLONOSCOPY | | 04/02/2019 | Abdominal bloating | | | | | 9:57 AM | Constipation, | | | | | PDT | unspecified | | | | | | constipation type | | + +--------+ + + + | POCT TEST, | Routin | 04/02/2019 | | Results for this | | URINE, QUAL | e | 9:57 AM | | procedure are in the | | | | PDT | | results section. | + +--------+ + + + documented in this encounter Results COLONOSCOPY (04/02/2019 10:00 AM PDT) + + | Specimen | + + | | + + + + -+ | Narrative | Performed At | + + -+ | | [facility] | | GastroenterologyPatient Name: Baudilio Backeddeyanira Date: 04/02/2019 | [facility] | | 10:00 AMMRN: [id number] #: [id number] of : | | | 1980Admit Type: AmbulatoryAge: 38Room: Endo Room 1Gender: | | | FemaleNote Status: FinalizedAttending MD: Hill Montana , | | | MDProcedure: ColonoscopyIndications: Generalized | | | abdominal pain, Slow transit constipationProviders: Hill | | | Delroy [place] MD, Greta Pham, THO, Rik Das, | | | RN, Alisha Khan, TechnicianReferring MD: Jet | | | Arun Chaney MD (Referring MD)Medicines: Midazolam 2 | | | mg IV, Meperidine 100 mg IV, Oxygen 4 | | | liters/min nasocannulaComplications: No immediate complications. | | | Estimated blood loss: None.Procedure: Pre-Anesthesia | | | Assessment: - Prior [...] the nurse | | | and the radioisotope technician in the endoscopy suite. Mental Status | | | Examination: alert and oriented. Airway Examination: normal | | | oropharyngeal airway and neck mobility and Mallampati Class III | | | (part of the uvula and soft palate visualized). Respiratory | | | Examination: clear to auscultation. CV Examination: normal. | | | Prophylactic Antibiotics: The patient does not require | | | prophylactic antibiotics. Prior Anticoagulants: The patient has | | | taken no previous anticoagulant or antiplatelet agents. ASA Grade | | | Assessment: II - A patient with mild systemic disease. After | | | reviewing the risks and benefits, the patient was deemed in | | | satisfactory condition to undergo the procedure. The anesthesia | | | plan was to use moderate sedation / analgesia (conscious | | | sedation). Immediately prior to administration of medications, | | | the patient was re-assessed for adequacy to receive sedatives. | | | The heart rate, respiratory rate, oxygen saturations, blood | | | pressure, adequacy of pulmonary ventilation, and response to | | | care were monitored throughout the procedure. The physical | | | status of the patient was re-assessed after the procedure. - | | | After reviewing the risks and benefits, the patient was deemed in | | | satisfactory condition to undergo the procedure. - The | | | anesthesia plan was to use moderate sedation/analgesia (conscious | | | sedation). - Immediately prior to administration of | | | medications, the patient was re-assessed for adequacy to | | | receive sedatives. - The heart rate, respiratory rate, oxygen | | | saturations, blood pressure, adequacy of pulmonary ventilation, | | | and response to care were monitored throughout the procedure. | | | - The physical status of the patient was re-assessed after the | | | procedure. After I obtained informed consent, the scope was | | | passed under direct vision. Throughout the procedure, the | | | patient's blood pressure, pulse, and oxygen saturations were | | | monitored continuously. The Colonoscope was introduced through | | | the anus and advanced to the cecum, identified by the | | | appendiceal orifice, ileocecal valve and palpation. The colonoscopy | | | was performed without difficulty. The patient tolerated the | | | procedure well. The quality of the bowel preparation was | | | good.Findings: The perianal and digital rectal examinations were | | | normal. Pertinent negatives include normal sphincter tone and | | | no palpable rectal lesions. The sigmoid colon was mildly | | | tortuous. The exam was otherwise without abnormality. The | | | retroflexed view of the distal rectum and anal verge was normal and | | | showed no anal or rectal abnormalities.Impression: - | | | Tortuous colon. - The examination was otherwise normal. - | | | The distal rectum and anal verge are normal on retroflexion view. | | | - No specimens collected.Recommendation: - Patient has a | | | [...] previous diet today. | | | - Continue present medications. - Return to nurse | | | practitioner at appointment to be scheduled. - Telephone GI | | | clinic if symptomatic.Hill Montana MD04/02/2019 10:30:27 AMThis | | | report has been signed electronically.Number of Addenda: 0Note | | | Initiated On: 04/02/2019 10:00 AMScope Withdrawal Time: 0 hours 7 | | | minutes 45 seconds Scope In: 10:09:14 AMScope Out: 10:21:46 AM | | | [facility], [address] [place] [address] | | | [id number] | | | instructions were provided to the patient. | | | - Discharge patient to home (ambulatory). | | | - Resume previous diet today. | | | - Continue present medications. | | | - Return to nurse practitioner at appointment to be scheduled. | | | - Telephone GI clinic if symptomatic. | | |Hill Montana MD | | |04/02/2019 10:30:27 AM | | |This report has been signed electronically. | | |Number of Addenda: 0 | | |Note Initiated On: 04/02/2019 10:00 AM | | |Scope Withdrawal Time: 0 hours 7 minutes 45 seconds | | |Scope In: 10:09:14 AM | | |Scope Out: 10:21:46 AM | | | [facility], [address] [place] [address] | | | [id number] | | + + -+ + +---------+ + + | Performing | Address | City/State/Zipcode | Phone Number | | Organization | | | | + +---------+ + + | [facility] | | | | + +---------+ + + POCT Test, Urine, QUAL (04/02/2019 9:57 AM PDT) + + + + + + | Component | Value | Ref Range | Performed | Pathologist | | | | | At | Signature | + + + + + + | | Negative | Negative | | | | Test, | | | | | | Urine, POC | | | | | + + + + + + | Internal QC | Acceptable | Acceptable | | | + + + + + + | Specific | | 1.010, 1.015, | | | | [place], | | 1.020, 1.025 | | | | POC | | | | | + + + + + + | Lot Number | [id number] | | | | + + + + + + | Expiration | 2020-07-07 | | | | | Date | | | | | + + + + + + + + | Specimen | + + | Urine | + + documented in this encounter Visit Diagnoses + + | Diagnosis | + + | Abdominal bloating Flatulence, eructation, and gas pain | + + | Constipation, unspecified constipation type | + + documented in this encounter Admitting Diagnoses + + | Diagnosis | + + | Abdominal bloating Flatulence, eructation, and gas pain | + + | Constipation, unspecified constipation type | + + documented in this encounter Administered Medications + +--------+---------+------+------+------+ | Medication Order | MAR | Action | Dose | Rate | Site | | | Action | Date | | | | + +--------+---------+------+------+------+ + +---+ | lactated ringers (LR) infusion | | | at 100 mL/hr, Intravenous, | | | CONTINUOUS, Starting [facility] 04/02/19 | | | at 1015, Pre-op | | + +---+ | | | + +---+ + +-------+ +--------+---+---+ | meperidine (DEMEROL) 50 mg/mL | Given | 04/02/20 | 100 mg | | | | injection PRN, Starting Karen | | 19 10:06 | | | | | 04/02/19 at 1006 | | AM PDT | | | | + +-------+ +--------+---+---+ +---+---+ | | | +---+---+ + +-------+ +------+---+---+ | midazolam (VERSED) 5 mg/mL | Given | 04/02/20 | 1 mg | | | | injection PRN, Starting Karen | | 19 10:11 | | | | | 04/02/19 at 1008 | | AM PDT | | | | + +-------+ +------+---+---+ +-------+ +------+---+---+ | Given | 04/02/20 | 1 mg | | | | | 19 10:08 | | | | | | AM PDT | | | | +-------+ +------+---+---+ + +---+ | | | + +---+ | ondansetron (ZOFRAN ODT) | | | disintegrating tablet 4 mg 4 mg, | | | Oral, EVERY 6 HOURS PRN, Nausea, | | | Vomiting, Starting Karen 04/02/19 | | | at 1035, First line agent, | | | Post-op/Phase II | | + +---+ | | | + +---+ | ondansetron (ZOFRAN) injection | | | 4 mg 4 mg, Intravenous, EVERY 6 | | | HOURS PRN, Nausea, Vomiting, | | | Starting Karen 04/02/19 at 1035, | | | First line agent. Use PO option | | | unless NPO status or unable to | | | tolerate., Post-op/Phase II | | + +---+ | | | + +---+ documented in this encounter
--- OUTSIDE RECORDS SUMMARY | ~2020-05-24 | XMS | Encounter Summary ---
Demographics + + + | Address | [facility] | | | [place] [address] | + + + | Home Phone | | + + + | Preferred Language | Unknown | + + + | Marital Status | Single | + + + | Buddhist Affiliation | 1041 | + + + | Race | Unknown | + + + | Ethnic Group | or | + + + Author + + + | Author | Located Within [facility] | | | and [place] | + + + | Organization | Located Within [facility] | | [...] [place], [place] | | | | | [address] | | + + + + + | Amy Schneider | ECON | [address] | | | | | [place], [place] | | | | | [address] | | + + + + + | Alisha Schneider | ECON | Unknown | | + + + + + Care Team Providers + +------+ + | Care Bulldozer Mechanic Name | Role | Phone | + +------+ + | Jet Chaney MD | PCP | | + +------+ + Encounter Details +--------+ + + + + | Date | Type | Department | Care Team | Description | +--------+ + + + + | 08/24/ | Hospital | [facility] | Alesia Damian | | | 2011 | Encounter | MED CTR EMERGENCY | DO Paula Oliva | | | | | CENTER [address] | [address] [place], [place] | | | | | [place], [place] | [id number] | | | | | [address] | | | | | | [phone] | Arun Adan | | | | | | Sylvain Hylton MD | | | | | | [address] | | | | | | [place], [place] | | | | | | [phone] | | | | | | | | +--------+ + + + [...] as of this encounter ED Notes Arun Adan MD - 08/24/2012 8:25 PM [facility] [place] [address] Patient Name: PAVITHRA SCHNEIDER Provider: Unit #: [id number] Location: : 1980 DATE: 08/24/2012 CHIEF COMPLAINT: This is a 32-year-old female who presents to the emergency room with wors ening left- sided facial numbness as well as left arm numbness. She is also complaining of pain in the left side of her neck. HISTORY OF PRESENT ILLNESS: She states that she has pain to the left side of the neck with decreased range of motion of her head and neck secondary to the pain. The patient also has a left-sided facial numbness off and on as well as left arm numbness. The patient states t his has been ongoing for several weeks. She is here for further evaluation. REVIEW OF SYSTEMS: Positive for the left-sided facial numbness. She also reports feeling o f heat in the left side of her face. She denies any episodes of loss of consciousness or an y dizziness episodes, no headache. The rest of her review of systems, complete review of sy stems completed by me, all components are negative. PAST MEDICAL HISTORY: Hypothyroidism. MEDICATIONS INCLUDE 1. Levothyroxine. 2. Ibuprofen. 3. Hydrocodone. 4. Colace. 5. As well as Vitamin D3. ALLERGIES TO MEDICATIONS: NONE. PHYSICAL EXAMINATION VITAL SIGNS: Blood pressure is 145/96, heart rate is 73, respirations 14, O2 saturation 10 0%, temperature is 97.5. HEENT: Pupils equal, round, and reactive to light. Extraocular movements intact. NECK: Supple, nontender, no lymphadenopathy. Her neck does show left-sided paraspinal tend erness in the musculature of the neck as well as the left trapezius. RESPIRATORY: Equal breath sounds bilaterally. No wheezing, rales, or rhonchi. CARDIOVASCULAR: Regular rate and rhythm. ABDOMEN: Soft, nontender, no organomegaly. BACK: Normal to inspection. NEUROLOGIC: Cranial nerves 2 through 12 are intact. She does report subjective numbness to the left side of her face when I touch it, but she does have sensation and can feel me huseyin nakia it without difficulty. Her strength in the left upper extremity, as well as right upp er extremity, is within normal limits. FURTHER DISCUSSION: I spent approximately 10 to 15 minutes discussing with the patient her symptoms. She has continued left-sided facial complaints with a lot of tension in her neck . I feel that most likely this is cervical in nature. Symptoms have been coming and going f or the last few weeks. Also associated with left upper arm numbness. It appears to be some sensory deficit coming from her neck. I did recommend her to do some stretching and icing of the neck, as well as taking some mu scle relaxers for pain. The patient is to followup with her primary care physician for further followup. I am writ ing the patient a prescription for short course of Flexeril to take for continued pain, but at this point, I feel that the patient does not have any central neurological deficits and no sign of intracranial ischemic process. CLINICAL IMPRESSION 1. LEFT CERVICAL PAIN. 2. LEFT CERVICAL RADICULOPATHY. DICTATED BY: Arun Adan MD Emergency Medicine JOB #: [id number] EXT JOB #:[id number] <<Signature on File>> Arun Adan MD08/29/12 1054 < documented in this encounter Plan of Treatment Not on filedocumented as of this encounter Visit Diagnoses Not on filedocumented in this encounter"
--- OUTSIDE RECORDS SUMMARY | ~2020-05-24 | XMS | Encounter Summary ---
Demographics + + + | Address | [facility] | | | [place] [address] | + + + | Home Phone | | + + + | Preferred Language | Unknown | + + + | Marital Status | Single | + + + | Sikhism Affiliation | 1041 | + + + | Race | Unknown | + + + | Ethnic Group | or | + + + Author + + + | Author | [facility] | | | and [place] | + + + | Organization | [facility] | | | and [...] [place], [place] | | | | | [address] | | + + + + + | Amy Schneider | ECON | [address] | | | | | [place], [place] | | | | | [address] | | + + + + + | Alisha Schneider | ECON | Unknown | | + + + + + Care Team Providers + +------+ + | Care Engineering Operator Name | Role | Phone | + +------+ + | Jet Chaney MD | PCP | | + +------+ + Encounter Details +--------+ + + + + | Date | Type | Department | Care Team | Description | +--------+ + + + + | 11/24/ | Abstract | [facility] | Jet Chaney, | | | 2020 | | MEDICINE [place] | [address] | | | | | [address] | [place] | | | | | [place] | [address] | | | | | [address] | | | | | | [phone] | | | +--------+ + + + [...]
--- OUTSIDE RECORDS SUMMARY | ~2020-05-24 | XMS | Encounter Summary ---
Demographics + + + | Address | [facility] | | | [place] [address] | + + + | Home Phone | | + + + | Preferred Language | Unknown | + + + | Marital Status | Single | + + + | Islam Affiliation | 1041 | + + + | Race | Unknown | + + + | Ethnic Group | or | + + + Author + + + | Author | [facility] | | | and [place] | + + + | Organization | [facility] | | [...] [place], [place] | | | | | [address] | | + + + + + | Amy Schneider | ECON | [address] | | | | | [place], [place] | | | | | [address] | | + + + + + | Alisha Schneider | ECON | Unknown | | + + + + + Care Team Providers + +------+ + | Care Therapy Director Name | Role | Phone | + +------+ + | Jet Chaney MD | PCP | | + +------+ + Reason for Visit +--------+--------+ + | Reason | Onset | Comments | | | Date | | +--------+--------+ + | Other | 10/19/ | | | | 2014 | | +--------+--------+ + Encounter Details +--------+ + + + + | Date | Type | Department | Care Team | Description | +--------+ + + + + | 10/19/ | Telephone | [facility] | Jet Chaney, | Other | | 2013 | | [facility] | [address] | | | | | [address] | [place] | | | | | [place] | [address] | | | | | [address] | | | | | | [phone] | | | +--------+ + + + [...] Telephone Encounter - Jet Chaney MD - 10/21/2013 4:02 PM PSTTrial nexium x 4 weeks minimum. If pain not improved will consider further diagnostic studies. Detailed voicemail left with patient. e lephone Encounter - Michelle Petersen RN - 10/19/2013 11:22 AM PSTPhone call from patient. States that you were going to talk with Dr. [place] and see if she needed to have a CT of her stomach She wants to know if she needs one? She also wanted to know about the omeprazole because it gave her diarrhea She has not been taking them She can be reached at [phone] signed by Michelle Petersen RN at 10/19/2013 11:25 AM PSTdocumented in this encounter Plan of Treatment Not on filedocumented as of this encounter Visit Diagnoses + + | Diagnosis | + + | Gastritis - Primary Unspecified gastritis and gastroduodenitis without mention of | | hemorrhage | + + documented in this encounter"
--- OUTSIDE RECORDS SUMMARY | ~2020-05-24 | XMS | Encounter Summary ---
Demographics + + + | Address | [facility] | | | [place] [address] | + + + | Home Phone | | + + + | Preferred Language | Unknown | + + + | Marital Status | Single | + + + | Episcopal Affiliation | 1041 | + + + | Race | Unknown | + + + | Ethnic Group | or | + + + Author + + + | Author | [facility] | | | and [place] | + + + | Organization | [facility] | | | and [...] [place], [place] | | | | | [address] | | + + + + + | Amy Schneider | ECON | [address] | | | | | [place], [place] | | | | | [address] | | + + + + + | Alisha Schneider | ECON | Unknown | | + + + + + Care Team Providers + +------+ + | Care Manager Export Name | Role | Phone | + +------+ + | Jet Chaney MD | PCP | | + +------+ + Reason for Visit +---------+--------+ + | Reason | Onset | Comments | | | Date | | +---------+--------+ + | Results | 05/21/ | | | | 2020 | | +---------+--------+ + Encounter Details +--------+ + + + + | Date | Type | Department | Care Team | Description | +--------+ + + + + | 05/21/ | Telephone | [facility] | Jet Chaney, | Results | 2019 | | MEDICINE [place] | [address] | | | | | [address] | [place] | | | | | [place] | [address] | | | | | [address] | | | | | | [phone] | | | +--------+ + + + [...] Telephone Encounter - Jet Chaney MD - 05/21/2020 2:15 PM PDTLeft voicemail and [employer] art message with lab results. Prashanth Chaney MD documented in this e ncounter Plan of Treatment Not on filedocumented as of this encounter Visit Diagnoses Not on filedocumented in this encounter"
--- OUTSIDE RECORDS SUMMARY | ~2020-05-24 | XMS | Encounter Summary ---
Demographics + + + | Address | [facility] | | | [place] [address] | + + + | Home Phone | | + + + | Preferred Language | Unknown | + + + | Marital Status | Single | + + + | Cheondoism Affiliation | 1041 | + + + | Race | Unknown | + + + | Ethnic Group | or | + + + Author + + + | Author | [facility] | | | and [place] | + + + | Organization | [facility] | | | and [place] [...] [place], [place] | | | | | [address] | | + + + + + | Amy Schneider | ECON | [address] | | | | | [place], [place] | | | | | [address] | | + + + + + | Alisha Schneider | ECON | Unknown | | + + + + + Care Team Providers + +------+ + | Care Forestry Workers Name | Role | Phone | + +------+ + | Jet Chaney MD | PCP | | + +------+ + Encounter Details +--------+ + + + + | Date | Type | Department | Care Team | Description | +--------+ + + + + | 07/16/ | Hospital | [facility] | Jet Chaney, | Adnexal cyst; | | 2017 | Encounter | MED CTR ULTRASOUND | MD Claudy MANN [facility] | Dyspepsia | | | | [address] [place] | [place], [place] | | | | | [place], [place] | [address] | | | | | [address] | | | | | | [phone] | | | +--------+ + + + [...] + +--------+ + + + | US PELVIS W | Routin | 07/16/2018 | Adnexal cyst | Results for this | | TRANSVAGINAL | e | 3:51 PM | Dyspepsia | procedure are in the | | | | PDT | | results section. | + +--------+ + + + documented in this encounter Results US Pelvis W Transvaginal (07/16/2018 3:51 PM PDT) + + | Specimen | + + | | + + + + + | Narrative | Performed At | + + + | EXAM:US PELVIS W TRANSVAGINAL CLINICAL HISTORY: Evaluation of | [facility] | | ovaries, adnexal cysts. +Dyspepsia COMPARISON: 02/11/2014 | | | ultrasound. FINDINGS: Transabdominal and transvaginal imaging | | | of the pelvis. Uterus: Anteflexed uterus. There is an | | | intrauterine device centered in the endometrial cavity. No visible | | | endometrial abnormalities or endometrial thickening. No visible | | | myometrial abnormalities. The uterus measures 8.3 x 5.3 x 4.2 cm. | | | Ovaries and adnexa: Both ovaries are identified both are | | | unremarkable by grayscale. There are no adnexal masses. There is | | | no significant free fluid. IMPRESSION - Unremarkable pelvic | | | ultrasound. Dictated and Signed by: Hill Duque MD | | | Electronically signed: 07/16/2018 7:48 PM | | + + + + + | Procedure Note | + + | Kranthi, Rad Results In - 07/16/2018 7:51 PM PDT EXAM:US PELVIS W TRANSVAGINAL | | | | CLINICAL HISTORY: Evaluation of ovaries, adnexal cysts. +Dyspepsia | | | | COMPARISON: 02/11/2014 ultrasound. | | | | FINDINGS: | | | | Transabdominal and transvaginal imaging of the pelvis. | | | | Uterus: Anteflexed uterus. There is an intrauterine device centered in the | | endometrial cavity. No visible endometrial abnormalities or endometrial | | thickening. No visible myometrial abnormalities. The uterus measures 8.3 x 5.3 | | x 4.2 cm. | | | | Ovaries and adnexa: Both ovaries are identified both are unremarkable by | | grayscale. There are no adnexal masses. There is no significant free fluid. | | | | IMPRESSION - | | | | Unremarkable pelvic ultrasound. | | | | Dictated and Signed by: Hill Duque MD | | Electronically signed: 07/16/2018 7:48 PM | + + + +---------+ + + | Performing | Address | City/State/Zipcode | Phone Number | | Organization | | | | + +---------+ + + | [facility] | | | | + +---------+ + + documented in this encounter Visit Diagnoses + + | Diagnosis | + + | Adnexal cyst Other specified symptom associated with female genital organs | + + | Dyspepsia Dyspepsia and other specified disorders of function of stomach | + + documented in this encounter"
--- OUTSIDE RECORDS SUMMARY | ~2020-05-24 | XMS | Encounter Summary ---
Demographics + + + | Address | [facility] | | | [place] [address] | + + + | Home Phone | | + + + | Preferred Language | Unknown | + + + | Marital Status | Single | + + + | Latter Day Affiliation | 1041 | + + + | Race | Unknown | + + + | Ethnic Group | or | + + + Author + + + | Author | [facility] | | | and [place] | + + + | Organization | [facility] | | | and [...] [place], [place] | | | | | [address] | | + + + + + | Amy Schneider | ECON | [address] | | | | | [place], [place] | | | | | [address] | | + + + + + | Alisha Schneider | ECON | Unknown | | + + + + + Care Team Providers + +------+ + | Care Home Stager Name | Role | Phone | + +------+ + | Jet Chaney MD | PCP | | + +------+ + Reason for Visit + + + | Reason | Comments | + + + | Abdominal Pain | | + + + Evaluate & Treat (Routine) +--------+ + + + + + | Status | Reason | Specialty | Diagnoses / | Referred By | Referred To | | | | | Procedures | Contact | Contact | +--------+ + + + + + | Closed | Specialty | Gastroenterol | Diagnoses | Ritu, | Christie, | | | Services | ogy | Upper | Jet Dempsey MD | Liliya, | | | Required | | abdominal | [address] | [address] | | | | | pain | [address] [place] | [address] | | | | | [place] | [place], [place] | [address] | | | | | esophagus | [address] | [place], | | | | | without | Phone: | [place] [address] | | | | | dysplasia | [phone] | Phone: | | | | | Chronic | Fax: | [phone] | | | | | gastritis | [phone] | Fax: | | | | | without | | [phone] | | | | | bleeding, | | | | | | | unspecified | | | | | | | gastritis | | | | | | | type | | | +--------+ + + + + + Encounter Details +--------+---------+ + + + | Date | Type | Department | Care Team | Description | +--------+---------+ + + + | 03/16/ | Office | [facility] | Jet Chaney, | Constipation, | | 2019 | Visit | GASTROENTEROLOGY | MD Claudy [address] | unspecified | | | | [address] [place] | [place], [place] | constipation type | | | | [address] [place], [place] | [address] | (Primary Dx); | | | | [address] | | Abdominal bloating; | | | | [phone] | [place], | Early satiety; | | | | | [address] | Impaired fasting | | | | | [address] | glucose | | | | | [place] | | | | | | [address] | | | | | | | | +--------+---------+ + + + [...] + +---+---+---+ + + | Tobacco Cessation: Counseling Given: Yes | | Comments: 1-2 cigs daily | + [...] + + + | Blood Pressure | 126/82 | 03/16/2019 9:32 AM | | | | | PDT | | + + + + + | Pulse | 68 | 03/16/2019 9:32 AM | | | | | PDT | | + + + + + | Temperature | 36.7 C (98 F) | 03/16/2019 9:32 AM | | | | | PDT | | + + + + + | Respiratory Rate | 14 | 03/16/2019 9:32 AM | | | | | PDT | | + + + + + | Oxygen Saturation | 98% | 03/16/2019 9:32 AM | | | | | PDT | | + + + + + | Inhaled Oxygen | - | - | | | Concentration | | | | + + + + + | Weight | 97.4 kg (214 lb 11.7 | 03/16/2019 9:32 AM | | | | oz) | PDT | | + + + + + | Height | - | - | | + + + + + | Body Mass Index | 39.27 | 02/10/2019 12:00 PM | | | | | PDT | | + + + + + documented in this encounter Progress Notes Liliya Soriano ARNP - 03/16/2019 9:00 AM PDTFormatting of this note might be differe nt from the original. PATIENT NAME: Baudilio Schneider [...] help in the short term, but no assisted relief. Denies family history of colon cancer. [...] biopsied, pathology negative - Dr [place] at [facility] INTRAUTERINE DEVICE INSERTION 07/12/2015 [place]ashley - Dr Kaur at [facility] TONSILLECTOMY 11/01/2009 chronic tonsillitis, severely hypertrophic tonsils with upper airway obstruction - Dr Farhat thompson at [facility] UPPER GASTROINTESTINAL ENDOSCOPY N/A 08/28/2016 Procedure: EGD; Surgeon: Hill [place] MD; Location: [facility] UPPER GASTROINTESTINAL ENDOSCOPY N/A 08/05/2018 Procedure: EGD; Surgeon: Hill [place] MD; Location: [facility] Family History Problem [...] Occupational History Employer: Home [employer] Comment: [employer] in [place] Tobacco Use Smoking status: Current Some Day [...] Status: . 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 Exercise: None outside of work [...] Date Value Ref Range Status Color, UA, [facility] 01/02/2019 Nellie* Yellow, Light Yellow Final Clarity, UA, [facility] 01/02/2019 Cloudy Final Glucose, UA, [facility] 01/02/2019 250 mg/dL* Negative Final Bilirubin, UA, [facility] 01/02/2019 Negative Negative Final Ketones, UA, [facility] 01/02/2019 Trace* Negative, 100 mg/dL Final Specific Gautier, UA, [facility] 01/02/2019 1.025 1.001 - 1.030 Final Blood, UA, [facility] 01/02/2019 Negative Negative Final pH, UA, [facility] 01/02/2019 6.5 5.0, 6.0, 7.0, 8.0, 5.5, 6.5, 7.5 Final Protein, UA, [facility] 01/02/2019 100 mg/dL* Negative Final Urobilinogen, UA, [facility] 01/02/2019 0.2 0.2, Negative, Normal, < 0.2 mg/dL, 1 mg/dL, < 0. 2 E.U./dl, 1.0 E.U./dL, 0.2 mg/dL Final Nitrite, UA, [facility] 01/02/2019 Negative Negative Final Leukocyte Esterase, UA, [facility] 01/02/2019 Negative Negative Final Color 01/02/2019 Yellow Light Yellow, Yellow, Straw Final Clarity 01/02/2019 Hazy* Clear Final pH, Urine 01/02/2019 6.0 5.0 - 8.0 Final Specific [place] 01/02/2019 1.026 1.001 - 1.030 Final Protein, [...] 03/17 7:28 AM PDTdocumented in this encounter Plan of Treatment Not on filedocumented as of this encounter Visit Diagnoses + + | Diagnosis | + + | Constipation, unspecified constipation type - Primary | + + | Abdominal bloating Flatulence, eructation, and gas pain | + + | Early satiety | + + | Impaired fasting glucose | + + documented in this encounter"
--- OUTSIDE RECORDS SUMMARY | ~2020-05-24 | XMS | Encounter Summary ---
Demographics + + + | Address | [facility] | | | [place] [address] | + + + | Home Phone [...] + + + | Author | [facility] | | | and [place] | + + + | Organization | [facility] | | | [...] [place], [place] | | | | | [address] | | + + + + + | Amy Schneider | ECON | [address] | | | | | [place], [place] | | | | | [address] | | + + + + + | Alisha Schneider | ECON | Unknown | | + + + + + Care Team Providers + +------+ + | Care Tape Recorder Repairer Name | Role | Phone | + +------+ + | Jet Chaney MD | PCP | | + +------+ + Encounter Details +--------+ + + + + | Date | Type | Department | Care Team | Description | +--------+ + + + + | 06/24/ | Hospital | [facility] | Jet Chaney, | RUQ abdominal pain; | | 2013 | Encounter | [facility] | MD [address] | Hypothyroid | | | | [address] [place] | [place], [place] | | | | | [place] | [address] | | | | | [address] | | | | | | [phone] | | | +--------+ + + + [...] + + + +---------+ + + | amitriptyline | Take 1 tablet by | 90 | 1 | 02/24/20 | | | (ELAVIL) 50 mg | mouth nightly. To | tablet | | 14 | 4 | | tabletIndications: | help control back | | | | | | Chronic low back | pain | | | | | | pain | | | | | | + [...] tablet by | 90 | 3 | 06/24/20 | | | (SYNTHROID, | mouth every morning | tablet | | 14 | 5 | | LEVOTHROID) 75 MCG | (before breakfast). | | | | | | tabletIndications: | For low thyroid | | | | | | Hypothyroid | | | | | | + + + +---------+ + + | Multiple | Take 1 tablet by | | 0 | | | | Vitamins-Minerals | mouth Daily. | | | | 0 | | (WOMENS ONE DAILY | | | | | | | PO) | | | | | | + + + +---------+ + + | nortriptyline | Take 1 capsule by | 90 | 1 | 06/24/20 | | | (PAMELOR) 25 mg | mouth nightly. To | capsule | | 14 | 6 | | capsuleIndications: | help prevent back | | | | | | Chronic low back | pain. | | | | | | pain | | | | | | + + + +---------+ + + | omeprazole | Take 1 capsule by | 90 | 1 | 01/26/20 | | | (PRILOSEC) 40 MG | mouth Daily. To help | capsule | | 14 | 4 | | capsuleIndications: | abdominal pain | | | | | | Chronic abdominal | | | | | | | pain | | | | | | + + + +---------+ + + documented as of this encounter Plan of Treatment Not on filedocumented as of this encounter Procedures + +--------+ + + + | Procedure Name | Priori | Date/Time | Associated Diagnosis | Comments | | | ty | | | | + +--------+ + + + | CBC WITH | Routin | 06/24/2014 | RUQ abdominal pain | Results for this | | DIFFERENTIAL | e | 5:00 PM | | procedure are in the | | | | PDT | | results section. | + +--------+ + + + | TSH | Routin | 06/24/2014 | Hypothyroid | Results for this | | | e | 5:00 PM | | procedure are in the | | | | PDT | | results section. | + +--------+ + + + | COMPREHENSIVE | Routin | 06/24/2014 | RUQ abdominal pain | Results for this | | METABOLIC PANEL | e | 5:00 PM | | procedure are in the | | | | PDT | | results section. | + +--------+ + + + | URINALYSIS, REFLEX | Routin | 06/24/2014 | RUQ abdominal pain | Results for this | | MICROSCOPIC AND/OR | e | 4:56 PM | | procedure are in the | | CULTURE | | PDT | | results section. | + +--------+ + + + documented in this encounter Results CBC with Differential (06/24/2014 5:00 PM PDT) + + + + + + | Component | Value | Ref Range | Performed | Pathologist | | | | | At | Signature | + + + + + + | White Blood | 10.9 | 4.0 - 11.0 K/uL | [facility] | | | Cells | | | [facility] | | | | | | [facility] | | | | | | [facility] - | | | | | | LABORATORY | | + + + + + + | Red Blood | 4.75 | 3.70 - 5.20 | [facility] | | | Cells | | M/uL | [facility] | | | | | | [facility] | | | | | | C[facility] - | | | | | | LABORATORY | | + + + + + + | Hemoglobin | 15.1 | 11.5 - 16.0 | [facility] | | | | | g/dL | [facility] | | | | | | [facility] | | | | | | C[facility] - | | | | | | LABORATORY | | + + + + + + | Hematocrit | 44.6 | 34.0 - 47.0 % | [facility] | | | | | | [facility] | | | | | | [facility] | | | | | | [facility] - | | | | | | LABORATORY | | + + + + + + | MCV | 93.8 | 83.0 - 101.0 fL | [facility] | | | | | | [facility] | | | | | | [facility] | | | | | | [facility] - | | | | | | LABORATORY | | + + + + + + | MCH | 31.7 | 28.0 - 35.0 pg | [facility] | | | | | | [facility] | | | | | | [facility] | | | | | | [facility] - | | | | | | LABORATORY | | + + + + + + | MCHC | 33.8 | 32.0 - 36.0 | [facility] | | | | | g/dL | [facility] | | | | | | [facility] | | | | | | [facility] - | | | | | | LABORATORY | | + + + + + + | RDW-CV | 12.8 | <15.0 % | [facility] | | | | | | [facility] | | | | | | [facility] | | | | | | [facility] - | | | | | | LABORATORY | | + + + + + + | Platelet | 295 | 140 - 440 K/uL | [facility] | | | Count | | | [facility] | | | | | | [facility] | | | | | | CENTER - | | | | | | LABORATORY | | + + + + + + | MPV | 8.6 | fL | [facility] | | | | | | [facility] | | | | | | [facility] | | | | | | C[facility] - | | | | | | LABORATORY | | + + + + + + | % | 74.9 | 45.0 - 82.0 % | [facility] | | | Neutrophils | | | [facility] | | | | | | [facility]ICAL | | | | | | C[facility] - | | | | | | LABORATORY | | + + + + + + | % | 16.3 (L) | 20.0 - 45.0 % | [facility] | | | Lymphocytes | | | [facility] | | | | | | [facility] | | | | | | CENTER - | | | | | | LABORATORY | | + + + + + + | % Monocytes | 7.7 | 4.0 - 12.0 % | [facility] | | | | | | [facility] | | | | | | [facility] | | | | | | C[facility] - | | | | | | LABORATORY | | + + + + + + | % | 0.6 | 0.0 - 5.0 % | [facility] | | | Eosinophils | | | [facility] | | | | | | MEDICAL | | | | | | CENTER - | | | | | | LABORATORY | | + + + + + + | % Basophils | 0.5 | 0.0 - 1.0 % | [facility] | | | | | | [facility] | | | | | | [facility]ICAL | | | | | | C[facility] - | | | | | | LABORATORY | | + + + + + + | Absolute | 8.20 | 1.80 - 8.50 | [facility] | | | Neutrophils | | K/uL | [facility] | | | | | | [facility]ICAL | | | | | | CENTER - | | | | | | LABORATORY | | + + + + + + | Absolute | 1.80 | 0.60 - 3.20 | [facility] | | | Lymphocytes | | K/uL | [facility] | | | | | | MEDICAL | | | | | | CENTER - | | | | | | LABORATORY | | + + + + + + | Absolute | 0.80 | 0.00 - 1.00 | [facility] | | | Monocytes | | K/uL | [facility] | | | | | | MEDICAL | | | | | | CENTER - | | | | | | LABORATORY | | + + + + + + | Absolute | 0.10 | 0.00 - 0.40 | [facility] | | | Eosinophils | | K/uL | [facility] | | | | | | MEDICAL | | | | | | CENTER - | | | | | | LABORATORY | | + + + + + + | Absolute | 0.10 | 0.00 - 0.10 | [facility] | | | Basophils | | K/uL | [facility] | | | | [...] + | [facility] | [address] | [place], [place] | [phone] | | [facility] | | [address] | | | - LABORATORY | | | | + + + + + | [facility] | [address] | [place] | | | [facility] | | [address] [place] [address] | | | - LABORATORY | | | | + + + + + TSH (06/24/2014 5:00 PM PDT) + + + + + + | Component | Value | Ref Range | Performed | Pathologist | | | | | At | Signature | + + + + + + | TSH | 0.65Comment: All TSH | 0.34 - 5.60 | [facility] | | | | samples are screened | uIU/mL | [facility] | | | | using a 2nd Generation | | MEDICAL | | | | test, and are reflexed | | CENTER - | | | | to a 3rd Generation test | | LABORATORY | | | | if indicated. | | | | + + + + + + + + | Specimen | + + | Blood | + + + + + + + | Performing | Address | City/State/Zipcode | Phone Number | | Organization | | | | + + + + + | [facility] | [address] | [place] | [phone] | | [facility] | | [address] | | | - LABORATORY | | | | + + + + + | [facility] | [address] | [place] | | | [facility] | | [address] | | | - LABORATORY | | | | + + + + + Comprehensive Metabolic Panel (06/24/2014 5:00 PM PDT) + + + + + + | Component | Value | Ref Range | Performed | Pathologist | | | | | At | Signature | + + + + + + | Na | 136 | 136 - 149 | [facility] | | | | | mmol/L | [facility] | | | | | | MEDICAL | | | | | | CENTER - | | | | | | LABORATORY | | + + + + + + | K | 3.6 | 3.5 - 5.1 | [facility] | | | | | mmol/L | [facility] | | | | | | MEDICAL | | | | | | CENTER - | | | | | | LABORATORY | | + + + + + + | Cl | 99 | 98 - 109 mmol/L | [facility] | | | | | | [facility] | | | | | | MEDICAL | | | | | | CENTER - | | | | | | LABORATORY | | + + + + + + | CO2 | 31 | 24 - 31 mmol/L | [facility] | | | | | | [facility] | | | | | | MEDICAL | | | | | | CENTER - | | | | | | LABORATORY | | + + + + + + | Anion Gap | 6 | 3 - 16 mmol/L | [facility] | | | | | | [facility] | | | | | | MEDICAL | | | | | | CENTER - | | | | | | LABORATORY | | + + + + + + | Glucose | 129 (H) | 70 - 109 mg/dL | [facility] | | | | | | [facility] | | | | | | [facility] | | | | | | CENTER - | | | | | | LABORATORY | | + + + + + + | BUN | 8 | 7 - 18 mg/dL | [facility] | | | | | | [facility] | | | | | | MEDICAL | | | | | | CENTER - | | | | | | LABORATORY | | + + + + + + | Creatinine | 0.55 (L) | 0.60 - 1.30 | [facility] | | | | | mg/dL | [facility] | | | | | | MEDICAL | | | | | | CENTER - | | | | | | LABORATORY | | + + + + + + | eGFR, | >60Comment: GLOMERULAR | >=60 | [facility] | | | non- | FILTRATION | mL/min/1.73m2 | [facility] | | | [place] | RATE,ESTIMATED | | MEDICAL | | | | mL/min/1.36n5Xdmt than | | CENTER - | | [...] + + + + | Calcium | 9.2 | 8.3 - 10.5 | [facility] | | | | | mg/dL | [facility] | | | | | | MEDICAL | | | | | | CENTER - | | | | | | LABORATORY | | + + + + + + | Albumin | 4.1 | 3.2 - 5.0 g/dL | [facility] | | | | | | [facility] | | | | | | MEDICAL | | | | | | CENTER - | | | | | | LABORATORY | | + + + + + + | Bilirubin | 0.6 | 0.1 - 1.5 mg/dL | [facility] | | | Total | | | [facility] | | | | | | MEDICAL | | | | | | CENTER - | | | | | | LABORATORY | | + + + + + + | Total | 7.3 | 6.0 - 7.8 g/dL | [facility] | | | Protein | | | [facility] | | | | | | MEDICAL | | | | | | CENTER - | | | | | | LABORATORY | | + + + + + + | AST | 22 | 10 - 42 U/L | [facility] | | | | | | [facility] | | | | | | MEDICAL | | | | | | CENTER - | | | | | | LABORATORY | | + + + + + + | ALT | 41 | 6 - 45 U/L | [facility] | | | | | | [facility] | | | | | | MEDICAL | | | | | | CENTER - | | | | | | LABORATORY | | + + + + + + | Alkaline | 64 | 40 - 110 U/L | [facility] | | | Phosphatase | | | [facility] | | | | | | MEDICAL | | | | | | CENTER - | | | | | | LABORATORY | | + + + + + + | Globulin | 3.2 | g/dL | [facility] | | | | | | [facility] | | | | | | MEDICAL | | | | | | CENTER - | | | | | | LABORATORY | | + + + + + + | Albumin/Lynn | 1.3 | | [facility] | | | bulin Ratio | | | [facility] | | | | | | MEDICAL | | | | | | CENTER - | | | | | | LABORATORY | | + + + + + + | BUN/Creatin | 14.5 | | [facility] | | | ine [...] + | [facility] | [address] | [place] | [phone] | | [facility] | | [address] | | | - LABORATORY | | | | + + + + + | [facility] | [address] | [place], [place] | | | [facility] | | [address], [place] | | | - LABORATORY | | | | + + + + + Urinalysis, Reflex Microscopic and/or Culture (06/24/2014 4:56 PM PDT) + + + + + + | Component | Value | Ref Range | Performed | Pathologist | | | | | At | Signature | + + + + + + | Color, | Yellow | Light Yellow, | [facility] | | | Urine | | Yellow | [facility] | | | | | | MEDICAL | | | | | | CENTER - | | | | | | LABORATORY | | + + + + + + | Clarity, | Hazy (A) | Clear | [facility] | | | Urine | | | [facility] | | | | | | MEDICAL | | | | | | CENTER - | | | | | | LABORATORY | | + + + + + + | pH, Urine | 6.0 | 5.0 - 8.0 | [facility] | | | | | | [facility] | | | | | | MEDICAL | | | | | | CENTER - | | | | | | LABORATORY | | + + + + + + | Specific | >=1.030 | 1.001 - 1.030 | [facility] | | | [place], | | | [facility] | | | Urine | | | [...] + + + + | Blood, | Large (A) | Negative | [facility] | | [...] + + + + | Leukocyte | Negative | Negative | [facility] | | | Esterase, | | | [facility] | | | Urine | | | MEDICAL | | | | | | CENTER - | | | | | | LABORATORY | | + + + + + + | Urobilinoge | 0.2 E.U./dL | 0.2 E.U./dL, | [facility] | | | n, Urine | | 1.0 E.U./dL | [facility] | | | | [...] | + + + + + | [facility] | [address] | [place] | [phone] | | [facility] | | [address] | | | - LABORATORY | | | | + + + + + | [facility] | [address] | [place], [place] | | | [facility] | | [address] | | | - LABORATORY | | | | + + + + + documented in this encounter Visit Diagnoses + + | Diagnosis | + + | RUQ abdominal pain Abdominal pain, right upper quadrant | + + | Hypothyroid Unspecified hypothyroidism | + + documented in this encounter"
--- OUTSIDE RECORDS SUMMARY | ~2020-05-24 | XMS | Encounter Summary ---
Demographics + + + | Address | [facility] [address] | | | [place] [address] | + + + | Home Phone | | + + + | Preferred Language | Unknown | + + + | Marital Status | Single | + + + | Confucianism Affiliation | 1041 | + + + | Race | Unknown | + + + | Ethnic Group | or | + + + Author + + + | Author | [facility] | | | and [place] | + + + | Organization | [facility] | | | and [...] [place], [place] | | | | | [address] | | + + + + + | Amy Schneider | ECON | [address] | | | | | [place], [place] | | | | | [address] | | + + + + + | Alisha Schneider | ECON | Unknown | | + + + + + Care Team Providers + +------+ + | Care Client Relations Associate Name | Role | Phone | + +------+ + | Jet Chaney MD | PCP | | + +------+ + Reason for Visit + +--------+ + | Reason | Onset | Comments | | | Date | | + +--------+ + | Nutrition Education | 09/18/ | | | | 2018 | | + +--------+ + Encounter Details +--------+ + + + + | Date | Type | Department | Care Team | Description | +--------+ + + + + | 09/18/ | Telephone | [facility] | Jet Chaney, | Nutrition Education | | 2018 | | [facility] | [address] | | | | | [address] | [place] | | | | | [place] | [address] | | | | | [address] | | | | | | [phone] | | | +--------+ + + + [...] Telephone Encounter - Rosalina Castano RN - 09/18/2017 2:58 PM PSTSpoke with patient - scheduled for 09/19 at 1600 3:0 7 PM PSTTelephone Encounter - Jet Chaney MD - 09/18/2017 2:20 PM PSTHey Rosalina, Will you please schedule time with Sochil to review diet, lifestyle changes in more depth t o help her prevent diabetes. She is very close with an A1c of 6.4%. Thanks! Prashanth Chaney MD documented in this e ncounter Plan of Treatment Not on filedocumented as of this encounter Visit Diagnoses Not on filedocumented in this encounter"
--- OUTSIDE RECORDS SUMMARY | ~2020-05-24 | XMS | Encounter Summary ---
Demographics + + + | Address | [facility] | | | [place] [address] | + + + | Home Phone [...] + + + | Author | [facility] | | | and [place] | + + + | Organization | [facility] | [...] [place], [place] | | | | | [address] | | + + + + + | Amy Schneider | ECON | [address] | | | | | [place], [place] | | | | | [address] | | + + + + + | Alisha Schneider | ECON | Unknown | | + + + + + Care Team Providers + +------+ + | Care Hot Wort Settler Name | Role | Phone | + +------+ + | Jte Chaney MD | PCP | | + [...] | Eloy Yusuf MD | [address] | | | | | left-sided | [address] | [place], | | | | | low back | [address] | [place] | | | | | pain without | [place], | [address] | | | | | sciatica | [place] [address] | Phone: | | | | | Procedures | Phone: | [phone] | | | | | MRI Lumbar | [phone] | Fax: | | | | | Spine wo | Fax: | [phone] | | | | | Contrast | [phone] | | | | | | Called 03/11 | | | +--------+--------+ + + + + Reason for Visit + + + | Reason | Comments | + + + | Follow-up | SI Pain | + + + Encounter Details +--------+---------+ + + + | Date | Type | Department | Care Team | Description | +--------+---------+ + + + | 02/17/ | Office | [facility] | Eloy Moore, | Chronic left-sided | | 2018 | Visit | PHYSIATRY [address] | [address] | low back pain | | | | [address] | [place] | without sciatica | | | | [place] | [address] | (Primary Dx); | | | | [address] | | Obesity (BMI | | | | [phone] | | 35.0-39.9 without | | | | | | comorbidity); Strain | | | | | | of lumbar region, | | | | | | sequela | +--------+---------+ + + + Social History [...] + + + | Blood Pressure | 133/95 | 02/17/2018 4:44 PM | | | | | PDT | | + + + + + | Pulse | 78 | 02/17/2018 4:44 PM | | | | | PDT [...] + + + + | Weight | 91.3 kg (201 lb 4.5 | 02/17/2018 4:44 PM | | | | oz) | PDT | | + + + + + | Height | 157.5 cm (5' 2.01") | 02/17/2018 4:44 PM | | | | | PDT | | + + + + + | Body Mass Index | 36.8 | 02/17/2018 4:44 PM | | | | | PDT | | + + + + + documented in this encounter Patient Instructions Patient Instructions Dianelys Hood, Application Support Manager - 02/17/2018 4:40 PM PDTPlease co mplete an updated MRI of your lumbar spine. Please begin taking the medication gabapentin 300 mg capsules. You will begin by taking one capsule, 300 mg, for one week. After one week you may being taking 2 capsules, for a total of 600 mg. Please continue to take the medication Nortriptyline as prescribed. Please discon tinue the use of the medication tizanidine. documented in this encounter Progress Notes Eloy Moore MD - 02/17/2018 4:40 PM PDTFormatting of this note might be different fro m the original. Eloy Moore MD [address] [facility], [address] [place], [place] [address] FAX: PHYSICAL MEDICINE AND REHABILITATION H&P CHIEF COMPLAINT: Chief Complaint Patient presents with Follow-up SI Pain HISTORY OF PRESENT ILLNESS: Baudilio Schneider is a 37 y.o. female being seen today in follow-up for complaints of low right sided back pain. Baudilio Schneider was last seen on 09/17/17. Previously it was recommended that she complete an X-ray of her sacroiliac joint, start the medication nortriptyline, and cont inue to participate in physical therapy. She reports that the medication nortriptyline has been effective to some degree in helping her sleep, but reports the recently prescribed medi cation tizanidine helps her sleep more. Baudilio Schneider states the medication tizanidine does help improve her pain a small amount. In regards to physical therapy, Baudilio Schneider reports she has completed physical therapy, and it did provide some relief of her low back symptoms. She does report continued completion of at home exercises as outline by physical therapy. Overall Baudilio Schneider reports that her symptoms show no change. Baudilio Schneider rates the pa in as 6 on scale of 1-10, localizing the majority of her pain to the left side of her low ba ck.Baudilio Schneider describes the pain present in her low back as sharp and continuous, worse on the left than the right, although she does report an increase of pain present in her righ t low back at today's visit. Her symptoms worsen with laying down and changing positions whi le sleeping. Her symptoms improve with "getting up and moving". Baudilio Schneider does not de scribe numbness present in either leg. She does not report weakness of either leg. She do es not have bowel and bladder dysfunction. She does not have saddle anesthesia. Treatments for these complaints have included physical therapy, NSAIDS, and neuropathic alonzo n medications. Baudilio Schneider is currently taking tizanidine 4 mg tablets, as well as the me dication nortriptyline 10 mg tablets for treatment of pain. Baudilio Schneider was previously walt ing the medication meloxicam, but this medication has been discontinued, although she report s at least minimal relief while taking the medication. Baudilio Schneider's medications, allergies, past medical, surgical, social and family histories were reviewed and updated as appropriate. CURRENT MEDICATIONS: Current Outpatient Prescriptions Medication Sig Dispense Refill bisacodyl (BISACODYL) 5 mg EC tablet Take 1 tablet by mouth Daily as needed for Constip ation. 20 tablet 1 Cholecalciferol (VITAMIN D3) 5000 UNITS CAPS Take 5,000 Units by mouth Daily. fish oil 1,000 mg capsule Take 2,000 mg by mouth Daily. levonorgestrel (MIRENA) 20 MCG/24HR IUD 1 Device by Intrauterine route once for 1 dose. 1 Device 0 levothyroxine (SYNTHROID) 75 MCG tablet Take 1 tablet by mouth every morning (before br eakfast). For low thyroid 90 tablet 3 Multiple Vitamins-Minerals (WOMENS ONE DAILY PO) Take 1 tablet by mouth Daily. nortriptyline (PAMELOR) 10 MG capsule 1 capsule by mouth at bedtime for 7 days; then 2 at bedtime for 7 days; then 3 at bedtime for 7 days; then 4 at bedtime 120 capsule 1 tiZANidine (ZANAFLEX) 4 mg tablet Take 0.5-1 tablets by mouth every 8 hours as needed ( Neck and back pain). 30 tablet 0 UNABLE TO FIND 20 g. Med Name: Protein No current facility-administered medications for this visit. ALLERGIES: Allergies Allergen Reactions Hydrocodone Hives Breathing difficulty. REVIEW OF SYSTEMS: ROS GENERALLY: No fever, no night sweats, no anemia, no fatigue, no recent profound weight ch anges. EYES: No eye problems, no use of corrective lenses, no eye injury, no double vision, no bl indness. EARS, NOSE, AND THROAT: No changes in taste or smell, no hearing difficulty, no ringing in the ears, no ear drainage, no dizziness, no voice changes, no difficulty swallowing, no sig nificant snoring, no sleep apnea, no sinus problems, no major dental work. NEUROLOGICALLY:The patient has no numbness/pain of arms, no numbness/pain of legs, + awake with numbness/pain, no weakness, + muscle aching, no coordination difficulty, no change in w alk, no head injury, no neck injury, no back injury, no pain in neck, + pain in back, no str elroy, no fainting spells, no loss of consciousness, no tremor/shaking, no seizures, no headac hes, no migraine, no memory loss, no speech difficulty, no confusion and no numbness of face . PSYCHIATRIC: No depression, no sleep disorders, no anxiety, no bipolar disorder, no psycho tic episodes. CARDIOVASCULAR: No heart attacks, no heart murmur, no heart fluttering, no chest pain, no ankle swelling. LUNG DISEASE: No shortness of breath, no cough, no tuberculosis, no bloody cough, no asth ma, no emphysema/COPD. GASTROINTESTINAL: No bowel disease, no nausea or vomiting, no rectal bleeding, no constipa tion, no stool incontinence, no liver disease, no gallbladder disease, no abdominal pain, no ulcers. KIDNEY DISEASE: No urinary frequency, no painful or difficult urination, no incontinence. ENDOCRINE: No diabetes, no thyroid disease, no osteopenia or osteoporosis, no breast drain age. SKIN: No breast lumps, no skin changes, no rashes, no itches. HEMATOLOGIC/LYMPHATIC: No enlarged lymph nodes, no easy or unusual bleeding, no personal h istory of cancer. RHEUMATOLOGIC: No joint arthritis, no rheumatoid arthritis. PHYSICAL EXAMINATION: Blood pressure (!) 133/95, pulse 78, height 1.575 m (5' 2.01"), weight 91.3 kg (201 lb 4.5 oz), not currently . Body mass index is 36.8 kg/m. Vitals: 02/17/18 1644 BP: (!) 133/95 Pulse: 78 PainSc: 6 PainLoc: Back GENERAL: The patient is well developed and well nourished. She does not appear uncomfortab le when seated. HEENT: Normocephalic and atraumatic. Normal sclerae without icterus. NECK (ANTERIOR): There is no apparent cervical lymphadenopathy or thyromegaly. PULMONARY: The patient is in no acute respiratory distress with unlabored respirations. CARDIOVASCULAR: There is not lower extremity edema. ABDOMEN: Non-distended. SKIN: Limited skin exam shows no significant rashes or lesions. There are not scars in the lumbar region. NEUROLOGIC: The patient is awake, alert, and oriented. She follows simple and complex commands. Her speech is fluent. She comprehends speech well. She has no apparent deficits with short or intermediate card tender memory. The cranial nerves appear grossly intact. Sensory exam: intact sensation to light touch in the upper and lower extremities. MOTOR EXAM: (5 IS NORMAL) * Indicates pain limited MUSCLE/ MOVEMENT: RIGHT LEFT Hip Flexion 5 5 Hip Extension 5 5 Knee Flexion 5 5 Knee Extension 5 5 Extensor Hallicus Longus 5 5 Ankle Dorsiflexion 5 5 Plantarflexion 5 5 REFLEX: RIGHT LEFT PATELLAR 1+ 1+ ACHILLES 1+ 1+ MAI'S Negative Negative PLANTAR Downgoing Downgoing MUSCULOSKELETAL : The patient localized the majority of the pain to the left lumbar paraspi nal muscles in the approximate region of L4-L5. Lumbar Facet Loading Test: Negative. DATABASE: Sacroiliac X-Ray competed 11/23/17 was reviewed personally by me in detail during today's vi sit. I concur with the results as reported by the Radiologist. The imaging demonstrates: un remarkable findings. ASSESSMENT: 1. Chronic left-sided low back pain without sciatica 2. Obesity (BMI 35.0-39.9 without comorbidity) 3. Strain of lumbar region, sequela PLAN: 1. Baudilio Schneider will complete an updated MRI of her lumbar spine to assess for the cause o f her chronic low back pain without sciatica, and to assess for the differential diagnoses i ncluding, but not limited to muscle strain and arthritis of the low back. Today we discussed that her X-Ray of the sacroiliac completed on 11/23/17 yielded relatively normal findings, w hich is both good and bad. I advised Baudilio Schneider that because the X-ray was normal, we sti ll do not have a known cause of her continued low back pain. I suggested to Baudilio Schneiderelizabeth the next step in treatment would be to obtain an updated MRI of her lumbar spine to asse ss for potential causes of her low back pain, not visualized on her recent X-Ray. Baudilio Schneider has completed physical therapy. She has completed multiple courses of NSAIDs . She has tired multiple medications for pain including but not limited to: tizanidine, cyc lobenzaprine, ibuprofen, Mobic, Cymbalta, and nortriptyline. Despite conservative treatment she has persisting back pain that inhibits her function and is interfering with activities such as work. She reports needing to take breaks at work because of her back pain. Her ronni or MRI is more than 2 years old. Updated lumbar MRI will be obtained to evaluate for interv al change and origin of her persisting back pain. 2. Baudilio Schneider will begin taking the medication gabapentin 300 mg capsules. Baudilio Schneider was advised to start the medication gabapentin by taking one 300 mg capsule nightly for one week, and then increase to 600 mg, or 2 capsules nightly for the remainder of her treatment . Today we discussed the various, and numerous medications that have been tried to treat Naila Ols[place] low back pain including cymbalta, meloxicam, nortriptyline, advil, naproxen, ti zanidine, and amitriptyline. I advised Baudilio Schneider that I would suggest that she begin walt ing the medication gabapentin 300 mg capsules, in addition to her previously prescribed nort riptyline, but discontinue the use of the medication tizanidine. Tizanidine may have some ability to reduce neuropathic pain because of its alpha receptor a ctivity. Overall muscle relaxant medications have been shown to be ineffective for chronic low back pain. She reports that tizanidine hasn't reduced her pain, but she likes it becaus e it helps her sleep at night. She reports that it also makes her sleepy during the day. 3. Today we discussed other treatments for Baudilio Olsens pain such a steroid injections. We discussed that due to Baudilio Schneider's insurance, fluoroscopically guided steroid injectio ns that may normally be helpful in treating low back pain, are not an option. At Baudilio foley's previous office visit, back in September, sacroiliac joint injections were discussed as a potential treatment for her low back pain. Today I advised Baudilio Schneider that even if her i nsurance would cover injections. Also we discussed that her current pain location is not the SI joints, so a sacroiliac inje ction would not provide relief, and is not indicated at this time. We discussed after comple ting an updated MRI of her lumbar spine we may be able to treat Baudilio Olsens low back alonzo n more efficiently. 4. Baudilio Schneider will follow up in approximately 3 months to review the updated MRI of her lumbar spine, and to review her response to the medication gabapentin 300 mg capsules. 5. Baudilio Schneider is encouraged to work toward weight loss. Her back pain may be muscular in origin and related to weight. We discussed that weight loss is often helpful in reducing most types of back pain. She has not had good success with weight loss in the past. Curre nt medications have some risk of weight gain. We will need to monitor her weight. If updat ed lumbar MRI is non-specific she may benefit from lean manufacturing leader consult, and/or bariatric cl inic consult. I spent 40 minutes in visit with Baudilio Schneider today with the majority of time spent counse lling the patient on her diagnosis, options for her care, and coordinating her care. I, Eloy Moore MD personally performed the services described in this documentation, as scribed by in my presence, TIP Camilo and are both accurate and complete. Eloy Moore MD - 02/17/2018 documented in this en counter Plan of Treatment Not on filedocumented as of this encounter Results MRI Lumbar Spine wo [...] Chronic left-sided low back pain without sciatica - Primary | + + | Obesity (BMI 35.0-39.9 without comorbidity) Obesity, unspecified | + + | Strain of lumbar region, sequela | + + documented in this encounter
--- OUTSIDE RECORDS SUMMARY | ~2020-05-24 | XMS | Encounter Summary ---
Demographics + + + | Address | [facility] | | | [place] [address] | + + + | Home Phone | | + + + | Preferred Language | Unknown | + + + | Marital Status | Single | + + + | Cheondoism Affiliation | [id number] | + + + | Race | Unknown | + + + | Ethnic Group | or | + + + Author + + + | Author | [facility] | | | and [place] | + + + | Organization | [facility] | [...] [place], [place] | | | | | [address] | | + + + + + | Amy Schneider | ECON | [address] | | | | | [place], [place] | | | | | [address] | | + + + + + | Alisha Schneider | ECON | Unknown | | + + + + + Care Team Providers + +------+ + | Care Poker In Name | Role | Phone | + +------+ + | Jet Chaney MD | PCP | | + +------+ + Reason for Visit + +--------+ + | Reason | Onset | Comments | | | Date | | + +--------+ + | Results, Imaging | 03/18/ | | | | 2018 | | + +--------+ + Encounter Details +--------+ + + + + | Date | Type | Department | Care Team | Description | +--------+ + + + + | 03/18/ | Telephone | [facility] [place] | Eloy Moore, | Results, Imaging | | 2018 | | PHYSIATRY [address] | [address] | | | | | [address] | [place], [place] | | | | | [place], [place] | [address] | | | | | [address] | | | | | | [phone] | | | +--------+ + + + [...] Miscellaneous Notes Telephone Encounter - Rea Villatoro Medical Assistant - 03/18/2018 11:29 AM Yuriy Schneider called our office back to review imaging results. Results were relayed. Results wer e routed to pcp via [employer]. elephone Encounter - Rea Villatoro Medical Assistant - 2017 11:20 AM PDTCalled to inform Baudilio Schneider of imaging results. Left a voicemail message to call our office back. elephone Encounter - Rea Villatoro Medical Assistant - 2017 11:20 AM PDT----- Message from Eloy Moore MD sent at 03/17/2018 13:04 PDT ----- Krystle, Please let Baudilio Schneider know that I have reviewed her lumbar MRI. There are no emergent f indings. The lumbar imaging demonstrates mild to moderate arthritic changes which may contr ibute to her symptoms. The imaging incidentally demonstrates an adnexal cyst. She should follow up with her PCP, Jet Chaney MD to determine if the adnexal cyst requires further evaluation or treatment. Thank you, Eloy Moore MD (Jr.) ----- Message ----- From: Abram Crisostomo Results In Sent: 03/14/2018 14:53 To: Eloy Moore MD do cumented in this encounter Plan of Treatment Not on filedocumented as of this encounter Visit Diagnoses Not on filedocumented in this encounter"
--- OUTSIDE RECORDS SUMMARY | ~2020-05-24 | XMS | Encounter Summary ---
Demographics + + + | Address | [facility] | | | [place] [address] | + + + | Home Phone | | + + + | Preferred Language | Unknown | + + + | Marital Status | Single | + + + | Amish Affiliation | [phone] | + + + | Race | Unknown | + + + | Ethnic Group | or | + + + Author + + + | Author | [facility] | | | and [place] | + + + | Organization | 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 [address] | | | | | pain | [address] [place] | [address] | | | | | [place] | [place], [place] | [address] | | | | | esophagus | [address] | [place], | | | | | without | Phone: | [place] [address] | | | | | dysplasia | [phone] | Phone: | | | | | Chronic | Fax: | [phone] | | | | | gastritis | [phone] | Fax: | | | | | without | | [phone] | | | | | bleeding, | | | | | | | unspecified | | | | | | | gastritis | | | | | | | type | | | +--------+ + + + + + Reason for Visit + +--------+ + | Reason | Onset | Comments | | | Date | | + +--------+ + | Referral | 01/14/ | | | | 2019 | | + +--------+ + Encounter Details +--------+ + + + + | Date | Type | Department | Care Team | Description | +--------+ + + + + | 01/14/ | Telephone | [facility] | Jet Chaney, | Referral | | 2018 | | MED[facility] [place] | [address] | | | | | [address] | [place] | | | | | [place] | [address] | | | | | [address] | | | | | | [phone] | | | +--------+ + + + [...] Telephone Encounter - Tamar Lugo RN - 01/14/2019 4:32 PM PDTReferral entered. Marilia aguero notified. ele phone Encounter - Laurita Yoo - 01/14/2019 1:48 PM PDTPatient called to speak with elizabeth bell nurse. Patient stated she is needing an updated referral for her upcoming [facility] on 02/10/19. Please call patient to advise, .Electronicall y signed by Laurita Yoo at 01/14/2019 1:49 PM PDTdocumented in this encounter Plan of Treatment + + +--------+ + + | Name | Type | Priori | Associated Diagnoses | Order Schedule | | | | ty | | | + + +--------+ + + | * [facility] [place] | Outpatient | Routin | Upper abdominal | Ordered: 01/14/2019 | | Gastroenterology - | Referral | e | pain Hodges's | | | AMB Referral | | | esophagus without | | | | | | dysplasia Chronic | | | | | | gastritis without | | | | | | bleeding, | | | | | | unspecified | | | | | | gastritis type | | + + +--------+ + + documented as of this encounter Visit Diagnoses + + | Diagnosis | + + | Upper abdominal pain - Primary Abdominal pain, other specified site | + + | Hodges's esophagus without dysplasia Hodges's esophagus | + + | Chronic gastritis without bleeding, unspecified gastritis type | + + documented in this encounter"
--- OUTSIDE RECORDS SUMMARY | ~2020-05-24 | XMS | Encounter Summary ---
Demographics + + + | Address | [facility] | | | [place] [address] | + + + | Home Phone | | + + + | Preferred Language | Unknown | + + + | Marital Status | Single | + + + | Jewish Affiliation | 1041 | + + + | Race | Unknown | + + + | Ethnic Group | or | + + + Author + + + | Author | [facility] | | | and [place] | + + + | Organization | [facility] | | | and [place] [...] [place], [place] | | | | | [address] | | + + + + + | Amy Schneider | ECON | [address] | | | | | [place], [place] | | | | | [address] | | + + + + + | Alisha Schneider | ECON | Unknown | | + + + + + Care Team Providers + +------+ + | Care Accounting Instructor Name | Role | Phone | [...] Closed | | Radiology | Diagnoses | Harri, | [facility] | | | | | Epigastric | Hill Holder MD | Medicine | | | | | pain | [address] | [address] | | | | | Abdominal | [place], [place] | [place], | | | | | bloating | [address] [place] | [place] | | | | | Procedures | [place], [place] | [address] | | | | | NM Gastric | [address] | Phone: | | | | | Emptying | Phone: | [phone] | | | | | | [phone] | Fax: | | | | | | Fax: | [phone] | | | | | | [phone] | | +--------+--------+ + + + + Reason for Visit Auth/Cert +--------+--------+ + + + + | Status | Reason | Specialty | Diagnoses / | Referred By | Referred To | | | | | Procedures | Contact | Contact | +--------+--------+ + + + + | | | | | | | +--------+--------+ + + + + Encounter Details +--------+ + + + + | Date | Type | Department | Care Team | Description | +--------+ + + + + | 09/25/ | Hospital | [facility] | Hill [place] MD | Epigastric pain; | | 2019 | Encounter | MED [facility] NUC[facility] | [address], [place] | Abdominal bloating | | | | MEDICINE [address] | [address] [place], [place] | | | | | [place], | [address] | | | | | [place] [address] | | | | | | [phone] | | | +--------+ + + + [...] | + +--------+ + + + | NM GASTRIC EMPTYING | Routin | 09/25/2018 | Epigastric pain | Results for this | | | e | 12:21 PM | Abdominal bloating | procedure are in the | | | | PST | | results section. | + +--------+ + + + documented in this encounter Results NM Gastric Emptying (09/25/2018 12:21 PM PST) + + | Specimen | + + | | + + + + + | Narrative | Performed At | + + + | NM GASTRIC EMPTYING 09/25/2018 8:15 AM HISTORY:?epigastric pain, | [facility] | | and abdominal bloating. COMPARISON: Abdomen radiograph dated | | | 01/09/2018. PROTOCOL: After ingesting scrambled egg with 1.1 mCi | | | technetium 99m sulfur colloid images are acquired anteriorly and | | | posteriorly on an hourly basis, up to 4 hours. FINDINGS: | | | Activity is noted within the stomach with continued emptying. No | | | reflux is seen. At the one hour gilmar, there is 64% of gastric | | | contents retained within the stomach. At the two hour gilmar, there is | | | 39% of gastric contents retained within the stomach. At the three | | | hour gilmar, there is 20% of gastric contents retained within the | | | stomach. At the four hour gilmar, there is 10.6% of gastric contents | | | retained within the stomach. IMPRESSION - Normal gastric | | | emptying study. Normal gastric emptying benchmark percentage | | | values: 60 minutes: <90% retention (>10% emptying) is normal; less | | | than 30% retention (>70% emptying) suggests abnormally rapid | | | emptying. 120 minutes: <60% retention (> 40% emptying) is normal. | | | 180 minutes: <30% retention (> 70% emptying) is normal. Dictated | | | and Signed by: Hill Duuqe MD Electronically signed: 09/25/2018 | | | 1:17 PM | | + + + + + | Procedure Note | + + | Kranthi, Rad Results In - 09/25/2018 1:20 PM PST NM GASTRIC EMPTYING 09/25/2018 8:15 AM | | | | HISTORY:?epigastric pain, and abdominal bloating. | | | | COMPARISON: Abdomen radiograph dated 01/09/2018. | | | | PROTOCOL: After ingesting scrambled egg with 1.1 mCi technetium 99m sulfur | | colloid images are acquired anteriorly and posteriorly on an hourly basis, up to | | 4 hours. | | | | FINDINGS: | | Activity is noted within the stomach with continued emptying. No reflux is | | seen. | | | | At the one hour gilmar, there is 64% of gastric contents retained within the | | stomach. | | At the two hour gilmar, there is 39% of gastric contents retained within the | | stomach. | | At the three hour gilmar, there is 20% of gastric contents retained within the | | stomach. | | At the four hour gilmar, there is 10.6% of gastric contents retained within the | | stomach. | | | | IMPRESSION - | | | | Normal gastric emptying study. | | | | | | | | Normal gastric emptying benchmark percentage values: | | 60 minutes: <90% retention (>10% emptying) is normal; less than 30% retention | | (>70% emptying) suggests abnormally rapid emptying. | | 120 minutes: <60% retention (> 40% emptying) is normal. | | 180 minutes: <30% retention (> 70% emptying) is normal. | | | | Dictated and Signed by: Hill Duque MD | | Electronically signed: 09/25/2018 1:17 PM | + + + +---------+ + + | Performing | Address | City/State/Zipcode | Phone Number | | Organization | | | | + +---------+ + + | [facility] | | | | + +---------+ + + documented in this encounter Visit Diagnoses + + | Diagnosis | + + | Epigastric pain Abdominal pain, epigastric | + + | Abdominal bloating Flatulence, eructation, and gas pain | + + documented in this encounter Administered Medications + +--------+ + +------+------+ | Medication Order | MAR | Action | Dose | Rate | Site | | | Action | Date | | | | + +--------+ + +------+------+ | technetium TC-99M sulfur | Given | 09/25/19 | 1.1 | | | | colloid solution 20 millicurie | | 19 8:26 | millicur | | | | 20 millicurie, Intravenous, ONCE | | AM PST | ies | | | | PRN, Other, Starting [facility] 09/25/18 | | | | | | | at 0824, For 1 dose, Nuclear | | | | | | | Medicine | | | | | | + +--------+ + +------+------+ +---+---+ | | | +---+---+ documented in this encounter"
--- OUTSIDE RECORDS SUMMARY | ~2020-05-24 | XMS | Encounter Summary ---
Demographics + + + | Address | [facility] | | | [place] [address] | + + + | Home Phone | | + + + | Preferred Language | Unknown | + + + | Marital Status | Single | + + + | Orthodox Affiliation | 1041 | + + + | Race | Unknown | + + + | Ethnic Group | or | + + + Author + + + | Author | [facility] | | | and [place] | + + + | Organization | [facility] [...] [place], [place] | | | | | [address] | | + + + + + | Amy Schneider | ECON | [address] | | | | | [place], [place] | | | | | [address] | | + + + + + | Alisha Schneider | ECON | Unknown | | + + + + + Care Team Providers + +------+ + | Care Supervisor Sign Shop Name | Role | Phone | + +------+ + | Jet Chaney MD | PCP | | + +------+ + Reason for Visit + + + | Reason | Comments | + + + | Follow-up | 6 month follow up | + + + | Abdominal Pain | woke up with LUQ pain this morning. Not as intense now. | + + + Encounter Details +--------+---------+ + + + | Date | Type | Department | Care Team | Description | +--------+---------+ + + + | 04/30/ | Office | [facility] | Jet Chaney, | Chronic gastritis | | 2019 | Visit | [facility] | [address] | without bleeding, | | | | [address] | [place] | unspecified | | | | [place] | [address] | gastritis type | | | | [address] | | (Primary Dx); | | | | [phone] | | Irritable bowel | | | | | | syndrome with | | | | | | constipation; | | | | | | Hodges's esophagus | | | | | | without dysplasia; | | | | | | Prediabetes; | | | | | | Preventative health | | | | | | care; Kidney lesion, | | | | | | mille lacs, left; PCP | | | | | | To Do | +--------+---------+ + + + Social History [...] No; Counseling Given: Yes | | Comments: 1-2 [...] + + + | Blood Pressure | 122/78 | 04/30/2019 4:01 PM | | | | | PDT | | + + + + + | Pulse | 70 | 04/30/2019 4:01 PM | | | | | PDT | | + + + + + | Temperature | 36.4 C (97.6 F) | 04/30/2019 4:01 PM | | | | | PDT | | + + + + + | Respiratory Rate | 16 | 04/30/2019 4:01 PM | | | | | PDT | | + + + + + | Oxygen Saturation | 100% | 04/30/2019 4:01 PM | | | | | PDT | | + + + + + | Inhaled Oxygen | - | - | | | Concentration | | | | + + + + + | Weight | 94.1 kg (207 lb 7.3 | 04/30/2019 4:01 PM | | | | oz) | PDT | | + + + + + | Height | - | - | | + + + + + | Body Mass Index | 37.94 | 04/02/2019 9:37 AM | | | | | PDT | | + + + + + documented in this encounter Patient Instructions Patient Instructions Jet Chaney MD - 04/30/2019 4:00 PM PDTRestart the pantoprazole and take it EVERY morning - ideally at least 30 minutes before breakfast. You can restart the Amitiza to help the bowel movements. Have an ultrasound of your left kidney in July. Classes and Counseling to Help Quit smoking: ? [facility]: Smoking cessation class includes 3 sessions over 3 weeks Cost: free Call [phone] to register ? [employer]: counseling available in [place] or Thai Website: www.cancer.org ? Tobacco Quit Line: 6-522-XJUV-NOW (907-9081) counseling available in [place] or Thai Website: www.quitnow.net documented in this encounter Progress Notes Jet Chaney MD - 04/30/2019 4:00 PM PDTFormatting of this note might be different fr om the original. Subjective: Patient ID: Baudilio Schneider is a 38 y.o. female who is here today for Follow-up (6 month foll ow up) and Abdominal Pain (woke up with LUQ pain this morning. Not as intense now.) HPI Her chronic abdominal pains are improved. But yesterday developed a new pain in her LUQ. Pain is improving and is just "sore, mild." Initially was worse with body movements, but no t any more. Improving on its own. She has not tried anything for it. She forgets to take pantoprazole consistently. She stopped Amitiza. She did find helpful, just ran out of pills. Colonoscopy went fine. Has a BM every 2-3 days. She doesn't have to strain. No No fever, cough, SOB, N/V, diarrhea, dysuria, hematuria, melena, hematochezia. Dr Vincent prescribed venlafaxine. Stopped due to fatigue. Patient's medications, allergies, past medical, surgical, social and family histories were obtained and reviewed as appropriate. Current Outpatient Medications on File Prior to Visit Medication Sig Dispense Refill Cholecalciferol (VITAMIN D3) 5000 UNITS CAPS Take 5,000 Units by mouth Daily. fish oil 1,000 mg capsule Take 2,000 mg by mouth Daily. ibuprofen (ADVIL,MOTRIN) 600 MG tablet Take 600 mg by mouth as needed. levonorgestrel (MIRENA) 20 MCG/24HR IUD 1 Device by Intrauterine route once for 1 dose. 1 Device 0 levothyroxine (SYNTHROID) 100 mcg tablet Take 100 mcg by mouth every morning (before br eakfast). liothyronine (CYTOMEL) 5 mcg tablet lubiprostone (AMITIZA) 8 mcg capsule Take 1 capsule by mouth 2 times daily (with breakf ast & dinner). 60 capsule 1 meloxicam (MOBIC) 7.5 mg tablet Take 7.5 mg by mouth. Multiple Vitamins-Minerals (WOMENS ONE DAILY PO) Take [...] (before break fast). To help stomach inflammation 30 tablet 5 polyethylene glycol-electrolytes (NULYTELY) 420 g solution Review of Systems Objective: BP 122/78 | Pulse 70 | Temp 36.4 C (97.6 F) (Temporal) | Resp 16 | Wt 94.1 kg (207 lb 7.3 oz) | SpO2 100% | BMI 37.94 kg/m Physical Exam Constitutional: Very pleasant, well developed, NAD Eyes: No scleral icterus. Cardiovascular: Normal rate, regular rhythm, normal heart sounds and intact distal pulses. Exam reveals no gallop and no friction rub. No murmur heard. Pulmonary/Chest: Breath sounds normal. No respiratory distress. She has no wheezes. She has no rales. Abdominal: Soft. She exhibits no distension and no mass. Tenderness: mild diffuse tendernes s. There is no rebound and no guarding. Psychiatric: She has a normal mood and affect. Colonoscopy Impression: - Tortuous colon. - The examination was otherwise normal. - The distal rectum and anal verge are normal on retroflexion view. - No specimens collected. Recommendation: - Patient has a contact number available for emergencies. The signs and symptoms of potential delayed complications were discussed with the patient. Return to normal activitie s tomorrow. Written discharge instructions were provided to the patient. - Discharge patient to home (ambulatory). - Resume previous diet today. - Continue present medications. - Return to nurse practitioner at appointment to be scheduled. - Telephone GI clinic if symptomatic. Hill [place] MD 04/02/2019 10:30:27 AM Assessment & Plan: 1. Irritable bowel syndrome with constipation: Reassuring colonoscopy 04/02/19. Reports im provement of symptoms with Amitiza. Did not have improvement with miralax, fiber supplement s. - Resume lubiprostone (AMITIZA) 8 mcg capsule; Take 1 capsule by mouth 2 times daily (with breakfast & dinner). To help bowel movements Dispense: 60 capsule; Refill: 5 2. Chronic gastritis without bleeding, unspecified gastritis type, h/o Hodges's esophagus without dysplasia, IBS: Repeat EGD 08/05/18 and biopsy reassuring other than patulous LES. Gastric emptying study normal. Symptoms have improved with Amitiza. - Resume pantoprazole - Renew focus on weight loss - pantoprazole (PROTONIX) 40 mg tablet; Take 1 tablet by mouth every morning (before breakf ast). To help stomach inflammation Dispense: 30 tablet; Refill: 5 Renal lesion of left kidney: Uncertain etiology. H/o kidney stones. - Repeat US in July - Educated on warning signs IFG/Prediabetes: - Recheck labs prior to next appointment - Diet, exercise, weight loss Return in about 6 months (around 10/31/2019), or if symptoms worsen or fail to improve. Prashanth Chaney MD documented in this e ncounter Miscellaneous Notes Addendum Note - Roxana Castle LPN - 04/30/2019 4:00 PM PDT Addended by: ROXANA CASTLE on: 04/30/2019 17:03 Modules accepted: Orders ddendum Note - Roxana Ortiz LPN - 04/30/2019 4:00 PM PDT Addended by: ROXANA CASTLE on: 04/30/2019 1 6:50 Modules accepted: Orders ddendum Note - Roxana Ortiz LPN - 04/30/2019 4:00 PM PDT Addended by: ROXANA CASTLE on: 04/30/2019 1 6:45 Modules accepted: Orders documented in thi s encounter Plan of Treatment Not on filedocumented as of this encounter Results Comprehensive Metabolic Panel (09/07/2019 10:55 AM PST) + + + + + + | Component | Value | Ref Range | Performed | Pathologist | | | | | At | Signature | + + + + + + | Na | 138 | 136 - 145 | [facility] | | | | | mmol/L | [facility] | | | | | [facility] | | | | | [facility] | | | | | | [facility] | | + + + + + + | K | 4.2 | 3.5 - 5.1 | [facility] | | | | | mmol/L | [facility] | | | | | | [facility] | | | | | | [facility] | | | | | | [facility] | | + + + + + + | Cl | 101 | 98 - 107 mmol/L | [facility] | | | | | | [facility] | | | | | [facility] | | | | | | [facility] | | | | | | [facility] | | + + + + + + | CO2 | 29 | 21 - 32 mmol/L | [facility] | | | | | | [facility] | | | | | [facility] | | | | | | [facility] | | | | | | [facility] | | + + + + + + | Anion Gap | 8 | 2 - 16 mmol/L | [facility] | | | | | | [facility] | | [facility] | [facility] | | | | | [facility] | | | | | | [facility] | | + + + + + + | Glucose | 117 (H) | 74 - 106 mg/dL | [facility] | | | | | | [facility] | | [facility] | | [facility] | | | | | | [facility] | | | | | | [facility] | | + + + + + + | BUN | 11 | 7 - 18 mg/dL | [facility] | | | | | | [facility] | [facility] | | | | | | [facility] | | | | | | [facility] | | + + + + + + | Creatinine | 0.63 | 0.55 - 1.02 | [facility] | | | | | mg/dL | [facility] | | | | | | [facility] | | | | | | [facility] | | | | | | [facility] | | + + + + + + | eGFR, | >60Comment: GLOMERULAR | >=60 | [facility] | | | non- | FILTRATION | mL/min/1.73m2 | [facility] | | | [place] | RATE,ESTIMATED | | MEDICAL | | | | mL/min/1.97f2Gfnj than | | PARK | | | | 60 Chronic kidney [...] + + | Calcium | 8.9 | 8.5 - 10.1 | [facility] | | | | | mg/dL | [facility] | | | | | | [facility] | | | | | | [facility] | | | | | | [facility] | | + + + + + + | Albumin | 3.6 | 3.4 - 5.0 g/dL | [facility] | | | | | | [facility] | | | | | | [facility] | | | | | | [facility] | | | | | | [facility] | | + + + + + + | Bilirubin | 0.5 | 0.2 - 1.0 mg/dL | [facility] | | | Total | | | [facility] | | | | | | [facility] | | | | | | [facility] | | | | | | [facility] | | + + + + + + | Total | 7.4 | 6.4 - 8.2 g/dL | [facility] | | | Protein | | | [facility] | | | | | | [facility] | | | | | | [facility] | | | | | | [facility] | | + + + + + + | AST | 20 | 15 - 37 U/L | [facility] | | | | | | [facility] | | | | | [facility] | | | | | | [facility] | | | | | | [facility] | | + + + + + + | ALT | 64 (H) | 14 - 59 U/L | [facility] | | | | | | [facility] | | | | | | [facility] | | | | | | [facility] | | | | | | [facility] | | + + + + + + | Alkaline | 79 | 46 - 116 U/L | [facility] | | | Phosphatase | | | [facility] | | | | | | [facility] | | | | | | [facility] | | | | | | [facility] | | + + + + + + | Globulin | 3.8 | 2.1 - 3.8 g/dL | [facility] | | | | | | [facility] | | | | | [facility] | | | | | | [facility] | | | | | | [facility] | | + + + + + + | Albumin/Lynn | 0.9 | 0.8 - 2.0 | [facility] | | | bulin Ratio | | | [facility] | | | | | | [facility] | | | | | | [facility] | | | | | | [facility] | | + + + + + + | BUN/Creatin | 17.5 | | [facility] | | | ine Ratio | | | [facility] | | | | | | [facility] | | | | | | [facility] | | | | | | [facility] | | + + + + + + + + | Specimen | + + | Blood | + + + + + + + | Performing | Address | City/State/Zipcode | Phone Number | | Organization | | | | + + + + + | [facility] | [address] | [place] | [phone] | | [facility] | | [address] | | | [facility] | | | | + + + + + Hemoglobin A1C (09/07/2019 10:55 AM PST) + +---------+ + + + | Component | Value | Ref Range | Performed | Pathologist | | | | | At | Signature | + +---------+ + + + | Hemoglobin | 6.7 (H) | 4.3 - 6.0 % | [facility] | | | A1c | | | [facility] | | | | | | [facility] | | | | | | [facility] - | | | | | | LABORATORY | | + +---------+ + + + | Estimated | 146 | mg/dL | [facility] | | | [...] + + | [facility] | [address] | [place] | [phone] | | [facility] | | [address] | | | - LABORATORY | | | | + + + + + US Renal Complete (07/23/2019 10:10 AM PST) + + | Specimen | + + | | + + + + + | Impressions | Performed At | + + + | Bilateral nonobstructive nephrolithiasis. 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 Incidental note is made of a | | | 5.1 x 4.4 cm left ovarian cyst which appears simple. Dictated and | | | Signed by: Alejo Farrar MD Electronically signed: 07/23/2019 | | | 10:51 AM | | + + + + + + | Narrative | Performed At | + + + | US RENAL COMPLETE 07/23/2019 9:04 AM HISTORY: follow up focus on | [facility] | | left kidney N28.9 kidney lesion, mille lacs left. COMPARISON: | | | 01/22/2019 PROTOCOL: Baker scale and Doppler images of the kidneys | | | and bladder. FINDINGS: Right Kidney: Shadowing 6 mm calculus is | | | seen in the mid pole of the right kidney. No evidence of | | | hydronephrosis or hydroureter. Size of the kidney is 11.6 cm. | | | Left Kidney: 5 mm hyperechoic lesion is seen in the upper pole of the | | | left kidney, compatible with an angiomyolipoma and unchanged. | | | Question a 6 mm shadowing stone in the mid/lower pole of the left | | | kidney and a second 5 mm shadowing stone in the mid pelvis. Size of | | | the kidney is 11.7 cm. Normal resistive indices are seen | | | bilaterally. Bladder: The bladder has a normal appearance. | | | Postvoid residual is 0 mL. Ureteral jets are seen on the right and | | | left. Incidental note is made of a 5.1 x 4.4 cm left ovarian cyst | | | which appears simple. | | + + + + + | Procedure Note | + + | Kranthi, Rad Results In - 07/23/2019 10:55 AM PST US RENAL COMPLETE 07/23/2019 9:04 AM | | | | HISTORY: follow up focus on left kidney N28.9 kidney lesion, mille lacs left. | | | | COMPARISON: 01/22/2019 | | | | PROTOCOL: Baker scale and Doppler images of the kidneys and bladder. | | | | FINDINGS: | | Right Kidney: Shadowing 6 mm calculus is seen in the mid pole of the right | | kidney. No evidence of hydronephrosis or hydroureter. Size of the kidney is 11.6 | | cm. | | | | Left Kidney: 5 mm hyperechoic lesion is seen in the upper pole of the left | | kidney, compatible with an angiomyolipoma and unchanged. Question a 6 mm | | shadowing stone in the mid/lower pole of the left kidney and a second 5 mm | | shadowing stone in the mid pelvis. Size of the kidney is 11.7 cm. | | | | Normal resistive indices are seen bilaterally. | | | | Bladder: The bladder has a normal appearance. Postvoid residual is 0 mL. | | Ureteral jets are seen on the right and left. Incidental note is made of a 5.1 x | | 4.4 cm left ovarian cyst which appears simple. | | | | IMPRESSION: | | Bilateral nonobstructive nephrolithiasis. 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 | | | | Incidental note is made of a 5.1 x 4.4 cm left ovarian cyst which appears | | simple. | | | | Dictated and Signed by: Alejo Farrar MD | | Electronically signed: 07/23/2019 10:51 AM | + + + +---------+ + + | Performing | Address | City/State/Zipcode | Phone Number | | Organization | | | | + +---------+ + + | [facility] | | | | + +---------+ + + documented in this encounter Visit Diagnoses + + | Diagnosis | + + | Chronic gastritis without bleeding, unspecified gastritis type - Primary | + + | Irritable bowel syndrome with constipation Irritable bowel syndrome | + + | Hodges's esophagus without dysplasia Hodges's esophagus | + + | Prediabetes Other abnormal glucose | + + | Preventative health care Routine general medical examination at a health care | | facility | + + | Kidney lesion, mille lacs, left Unspecified disorder of kidney and ureter | + + | PCP To Do Counseling NOS | + + documented in this encounter
--- OUTSIDE RECORDS SUMMARY | ~2020-05-24 | XMS | Encounter Summary ---
Demographics + + + | Address | [address] | | | [place] [address] | + + + | Home Phone [...] + + + | Author | [facility] | | | and [place] | + + + | Organization | [facility] | | | and [place] [...] [place], [place] | | | | | [address] | | + + + + + | Amy Schneider | ECON | [address] | | | | | [place], [place] | | | | | [address] | | + + + + + | Alisha Schneider | ECON | Unknown | | + + + + + Care Team Providers + +------+ + | Care Industrial Relations Specialist Name | Role | Phone | + +------+ + | Jet Chaney MD | PCP | | + +------+ + Encounter Details +--------+ + + + + | Date | Type | Department | Care Team | Description | +--------+ + + + + | 10/13/ | Hospital | [facility] | Jet Chaney, | | | 2013 - | Encounter | MED CTR DI[facility] | MD Claudy MANN AVGallo | | | | | [address] | [place] | | | 10/16/ | | [place] [address] | [address] | | | 2013 | | [phone] | | | +--------+ + + + [...] + + + +---------+ + + | cyclobenzaprine | Take 1-2 tablets by | 30 | 1 | 06/16/20 | | | (FLEXERIL) 5 MG | mouth Twice daily | tablet | | 13 | 4 | | tabletIndications: | as needed for Muscle | | | | | | Cervical strain | spasms. | | | | | + + [...] tablet by | 90 | 3 | 06/02/20 | | | (SYNTHROID, | mouth Daily. For low | tablet | | 13 | 4 | | LEVOTHROID) 75 MCG | thyroid | | | | | | tabletIndications: | | | | | | | Hypothyroidism | | | | | | + + + +---------+ + + | omeprazole | Take 1 capsule by | 60 | 3 | 10/01/19 | | | (PRILOSEC) 20 mg | mouth 2 times daily. | capsule | | 14 | 4 | | capsuleIndications: | For gastritis | | | | | | Chronic abdominal | | | | | | | pain, Gastritis | | | | | | + [...]
--- OUTSIDE RECORDS SUMMARY | ~2020-05-24 | XMS | Encounter Summary ---
Demographics + + + | Address | [facility] | | | [place] [address] | + + + | Home Phone | | + + + | Preferred Language | Unknown | + + + | Marital Status | Single | + + + | Hoahaoism Affiliation | 1041 | + + + | Race | Unknown | + + + | Ethnic Group | or | + + + Author + + + | Author | [facility] | | | and [place] | + + + | Organization | [facility] | | | and [place] [...] [place], [place] | | | | | [address] | | + + + + + | Amy Schneider | ECON | [address] | | | | | [place], [place] | | | | | [address] | | + + + + + | Alisha Schneider | ECON | Unknown | | + + + + + Care Team Providers + +------+ + | Care Reinforcement Maker Name | Role | Phone | + +------+ + | Jet Chaney MD | PCP | | + +------+ + Reason for Visit +---------+--------+ + | Reason | Onset | Comments | | | Date | | +---------+--------+ + | Results | 07/23/ | | | | 2019 | | +---------+--------+ + Encounter Details +--------+ + + + + | Date | Type | Department | Care Team | Description | +--------+ + + + + | 07/23/ | Telephone | [facility] | Jet Chaney, | Results | | 2018 | | MEDICINE [place] | [address] | | | | | [address] | [place] | | | | | [place] | [address] | | | | | [address] | | | | | | [phone] | | | +--------+ + + + [...] this encounter Miscellaneous Notes Telephone Encounter - Myla Santoyo RN - 08/05/2019 10:46 AM PSTPatient calls back in and the results were relayed. Patient was routed to imaging department to get her ultrasoun d scheduled. Patient was informed that wanted it to to be done in about [address] the exam around 09/02/2019. Patient verbalized understanding. Electronical ly signed by Myla Santoyo RN at 08/05/2019 10:48 AM PSTTelephone Encounter - Roxana Lucio LPN - 07/28/2019 9:29 AM PSTLetter sent to patient elephone Encounter - Roxana Lucio LPN - 2018 11:42 AM PSTCalled and left a voicemail message for patient to call back. elephone Encounter - Jet Chaney MD - 07/23/2019 5:25 PM PSTWill you please let Sochil know that her ki dney looks good. The lesion on her kidney is likely a benign (not cancerous) growth called an angiomyolipoma - a collection of muscle, fat and blood vessels. They do NOT become cance jayce. But sometimes they grow large and can bleed. Hers is very small - so we should repea t an ultrasound in three years to see if it is enlarging. Incidentally seen - she has a small simple appearing cyst on her left ovary. Ovarian cysts are COMMON and usually not dangerous at her age. I recommend repeating an ultrasound in 6 weeks to make sure it resolves. Will you please help schedule this. She should schedule follow-up with me at her convenience to review in more detail. Thanks, Prashanth Chaney MD documented in this e ncounter Plan of Treatment Not on filedocumented as of this encounter Results US Pelvis W Transvaginal (09/03/2019 4:35 PM PST) + + | Specimen | + + | | + + + + + | Impressions | Performed At | + + + | IUD within the endometrial cavity. Otherwise, unremarkable | [facility] | | sonographic appearance of the uterus and ovaries. Dictated and | | | Signed by: Bear Quintanilla MD Electronically signed: 09/03/2019 | | | 9:02 PM | | + + + + + + | Narrative | Performed At | + + + | TECHNIQUE: Transabdominal and endovaginal B-mode ultrasound with | [facility] | | color and duplex doppler CLINICAL INFORMATION: FU of left ovarian | | | cyst. COMPARISON: Sonogram 07/16/2018. FINDINGS: UTERUS: | | | Size: 9.4 x 4.9 x 4.7 cm. Orientation: Anteverted. Echotexture: | | | Normal. Masses: None. Cervix: Normal. Endometrium: IUD in | | | place. Endometrial thickness: 7 mm RIGHT ADNEXA: Ovary size: | | | 3.9 x 3.4 x 3.5 cm Echotexture and cysts: Normal. Color Doppler: | | | Arterial flow is present. Mass: None. LEFT ADNEXA: Ovary size: | | | 3.8 x 4.1 x 3.3 cm Echotexture and cysts: Normal. Color Doppler: | | | Arterial flow is present. Mass: None. FREE FLUID: None. | | + + + + + | Procedure Note | + + | Kranthi, Rad Results In - 09/03/2019 9:05 PM PST | | TECHNIQUE: Transabdominal and endovaginal B-mode ultrasound with color and | | duplex doppler | | | | CLINICAL INFORMATION: FU of left ovarian cyst. | | | | COMPARISON: Sonogram 07/16/2018. | | | | FINDINGS: | | | | UTERUS: | | Size: 9.4 x 4.9 x 4.7 cm. | | Orientation: Anteverted. | | Echotexture: Normal. | | Masses: None. | | Cervix: Normal. | | | | Endometrium: IUD in place. | | Endometrial thickness: 7 mm | | | | | | RIGHT ADNEXA: | | Ovary size: 3.9 x 3.4 x 3.5 cm | | Echotexture and cysts: Normal. | | Color Doppler: Arterial flow is present. | | Mass: None. | | | | LEFT ADNEXA: | | Ovary size: 3.8 x 4.1 x 3.3 cm | | Echotexture and cysts: Normal. | | Color Doppler: Arterial flow is present. | | Mass: None. | | | | | | FREE FLUID: None. | | | | | | IMPRESSION: | | | | IUD within the endometrial cavity. Otherwise, unremarkable sonographic | | appearance of the uterus and ovaries. | | | | Dictated and Signed by: Bear Quintanilla MD | | Electronically signed: 09/03/2019 9:02 PM | + + + +---------+ + + | Performing | Address | City/State/Zipcode | Phone Number | | Organization | | | | + +---------+ + + | [facility] | | | | + +---------+ + + documented in this encounter Visit Diagnoses + + | Diagnosis | + + | PCP To Do Counseling NOS | + + | Renal angiomyolipoma, left Benign neoplasm of kidney, except pelvis | + + | Ovarian cyst, left Other and unspecified ovarian cyst | + + documented in this encounter"
--- OUTSIDE RECORDS SUMMARY | ~2020-05-24 | XMS | Encounter Summary ---
Demographics + + + | Address | [facility] | | | [place] [address] | + + + | Home Phone | | + + + | Preferred Language | Unknown | + + + | Marital Status | Single | + + + | Hinduism Affiliation | 1041 | + + + | Race | Unknown | + + + | Ethnic Group | or | + + + Author + + + | Author | [facility] | | | and [place] | + + + | Organization | [facility] | | | and [place] [...] [place], [place] | | | | | [address] | | + + + + + | Amy Schneider | ECON | [address] | | | | | [place], [place] | | | | | [address] | | + + + + + | Alisha Schneider | ECON | Unknown | | + + + + + Care Team Providers + +------+ + | Care Marine Underwriter Name | Role | Phone | + +------+ + | Jet Chaney MD | PCP | | + +------+ + Encounter Details +--------+ + + + + | Date | Type | Department | Care Team | Description | +--------+ + + + + | 08/20/ | Abstract | [facility] [place] | Juan M Bailey, | | | 2012 | | GASTROENTEROLOGY | [address] [facility] | | | | | [address] | [address], | | | | | [address], [place] | [place] [address] | | | | | [address] | [phone] | | | | | [phone] | | | +--------+ + + + [...]
--- OUTSIDE RECORDS SUMMARY | ~2020-05-24 | XMS | Encounter Summary ---
Demographics + + + | Address | [facility] | | | [place] [address] | + + + | Home Phone [...] | [facility] | | | and [place] | [...] [place], [place] | | | | | [address] | | + + + + + | Amy Schneider | ECON | [address] | | | | | [place], [place] | | | | | [address] | | + + + + + | Alisha Schneider | ECON | Unknown | | + + + + + Care Team Providers + +------+ + | Care Water Softener Servicer Name | Role | Phone | + [...] + + | 09/25/ | Hospital | [facility] | Hill [place] MD | | | 2019 | Encounter | [facility] | [address], [place] | | | | | MEDICINE [address] [place], [place] | | | | | [place], | [address] | | | | | [place] [address] | | | | | | [phone] | | | +--------+ + + + [...] | | | and Signed by: Hill Duque MD Electronically signed: 09/25/2018 | | | [...]
--- OUTSIDE RECORDS SUMMARY | ~2020-05-24 | XMS | Encounter Summary ---
Demographics + + + | Address | [facility] | | | [place] [address] | + + + | Home Phone | | + + + | Preferred Language | Unknown | + + + | Marital Status | Single | + + + | Orthodoxy Affiliation | 1041 | + + + | Race | Unknown | + + + | Ethnic Group | or | + + + Author + + + | Author | [facility] | | | and [place] | + + + | Organization | [facility] | | | and [...] [place], [place] | | | | | [address] | | + + + + + | Amy Schneider | ECON | [address] | | | | | [place], [place] | | | | | [address] | | + + + + + | Alisha Schneider | ECON | Unknown | | + + + + + Care Team Providers + +------+ + | Care Spray Blender Name | Role | Phone | + [...] Description | +--------+---------+ + + + | 06/24/ | Office | [facility] | Jet Chaney, | Chronic low back | | 2014 | Visit | MEDICINE [place] | [address] | pain (Primary Dx); | | | | [address] | [place], [place] | RUQ abdominal pain; | | | | [place], [place] | [address] | Hypothyroid; | | | | [address] | | Obesity; Tobacco | | | | [phone] | | abuse; Need for | | | | | | influenza | | | | | | vaccination | +--------+---------+ + + + Social History [...] + + + | Blood Pressure | 112/80 | 06/24/2014 4:09 PM | | | | | PDT | | + + + + + | Pulse | 81 | 06/24/2014 4:09 PM | | | | | PDT | | + + + + + | Temperature | 36.3 C (97.3 F) | 06/24/2014 4:09 PM | | | | | PDT | | + + + + + | Respiratory Rate | 16 | 06/24/2014 4:09 PM | | | | | PDT | | + + + + + | Oxygen Saturation | 98% | 06/24/2014 4:09 PM | | | | | PDT | | + + + + + | Inhaled Oxygen | - | - | | | Concentration | | | | + + + + + | Weight | 93.2 kg (205 lb 6.4 | 06/24/2014 4:09 PM | | | | oz) | PDT | | + + + + + | Height | 157.5 cm (5' 2") | 06/24/2014 4:09 PM | | | | | PDT | | + + + + + | Body Mass Index | 37.57 | 06/24/2014 4:09 PM | | | | | PDT | | + + + + + documented in this encounter Patient Instructions Patient Instructions Jet Chaney MD - 06/24/2014 4:40 PM PDT BP 112/80 | Pulse 81 | Temp 36.3 C (97.3 F) (Temporal) | Resp 16 | Ht 1.575 m (5' 2") | Wt 93.169 kg (205 lb 6.4 oz) | BMI 37.56 kg/m2 | SpO2 98% | LMP 06/22/2014 Stop the amitriptyline and start the nortriptyline to help prevent the back pain. The best thing you can do for your health is quit smoking. Quitting smoking will improve y our back pain by decreasing the inflammation and also reduce your risk of getting cancer or a heart attack The next best thing you can do for your health is continue to lose weight. Losing weight w ill improve the back and decrease inflammation in the body. You need to repeat a CT of your chest in January 2015 to make sure the tiny 3 mm lung nodule is not getting bigger. Losing Weight (Cardiovascular) Excess weight is a [...] the store. Walk laps around the mall. [id number] [facility], [address] [place] [address], [place] [address]. All rights reserve d. This information is [...] look to your doctor, registered titian, and direct support professional caregiver for help. Your local hospital can give you more information about nutrition, exercise, and weight loss. [id number] Yany Agustin, [address] [place] [address], [place] [address]. All rights reserve d. This information is not intended as a substitute for professional medical care. Always fo llow your healthcare professional's instructions. documented in this encounter Progress Notes Jet Chaney MD - 06/24/2014 4:20 PM PDTFormatting of this note might be different fr om the original. Subjective: Patient ID: Baudilio Schneider is a 33 y.o. female here for back pain, hypothyroid. HPI She continues to have intermittent left lower back pain. Pain is not daily. Described as an ache and does not radiate. Pain is worse if she lays down or stands in one place for lisa g periods. Currently without back pain. No longer with paresthesias. She is no longer ta jenni the amitriptyline regularly due to fatigue the following morning. She does find it hel pful when she does take it. She takes ibuprofen a few days per week, which does help the ba ck pain. She has not tried PT because it is not covered by insurance. No fever, saddle par esthesias, bowel/bladder dysfunction (other than occasional constipation), foot drop. 3 days ago she developed RUQ pain - described as "hurting a little bit." Feels like a brui se. Palpation and laying on right side exacerbate the pain. She has not tried medications for the pain, time improves it. Not related to eating. No fever, N/V, diarrhea, cough, sob . She is taking levothyroxine 75 mcg daily. Occasional constipation. No fatigue, diarrhea, heat/cold intolerance. Her dad was diagnosed with "kidney disease." He is not on dialysis currently. She does no t know more details but would like her kidney function tested. She continues to smoke 1-2 cigarettes per day. Patient's medications, allergies, past medical, surgical, social and family histories were reviewed and updated as appropriate. Review of Systems See HPI BP 112/80 | Pulse 81 | Temp 36.3 C (97.3 F) (Temporal) | Resp 16 | Ht 1.575 m (5' 2") | Wt 93.169 kg (205 lb 6.4 oz) | BMI 37.56 kg/m2 | SpO2 98% | LMP 06/22/2014 Objective: Physical Exam Constitutional: Pleasant, obese, NAD Neck: Neck supple. No thyromegaly present. Cardiovascular: Normal rate, regular rhythm and normal heart sounds. Exam reveals no solorzano p and no friction rub. No murmur heard. Pulmonary/Chest: Effort normal. No respiratory distress. She has no wheezes. She has no ral es. She exhibits no tenderness. Abdominal: Soft. She exhibits no distension and no mass. There is no tenderness. There is n o rebound and no guarding. Musculoskeletal: No spinal or paraspinal tenderness. Symmetric 5/5 strength in LE's. Able to squat, walk on toes, walk on heels. Neurological: Negative straight leg raise Patella 2+ symmetric, Achilles 1+ symmetric Sensation to light touch intact in LE's bilaterally Skin: Scattered ~1 cm hyperpigmented circular patches along lower abdomen - per patient, gareth etimes she gets abscesses in these areas. Assessment: Baudilio was seen today for back pain. Diagnoses and associated orders for this visit: Chronic low back pain: Improved from previous, but still not ideal. No concerning radicul ar symptoms. Unfortunately PT not covered - Stop amitriptyline - Start nortriptyline (PAMELOR) 25 mg capsule; Take 1 capsule by mouth nightly. To help pre vent back pain. - Advised to lose weight, quit smoking Ruq abdominal pain: Suspect mild bruise. No red flag signs/symptoms - Comprehensive Metabolic Panel; Future - Urinalysis, Reflex Microscopic and/or Culture; Future - CBC with Differential; Future Hypothyroid: - TSH; Future - levothyroxine (SYNTHROID, LEVOTHROID) 75 MCG tablet; Take 1 tablet by mouth every morning (before breakfast). For low thyroid Need for influenza vaccination - Quadrivalent Flu vac greater than or equal to 3YO preservative free IM Tobacco: - Advised to quit. Rash Suspect she had hidradenitis and explained weight loss and smoking cessation will help. Prashanth Chaney MD emi Williamson LP N - 06/24/2014 4:06 PM PDTPatient is here for a back pain follow-up. She needs a refill of Levothyroxine. Also her dad just found out he has kidney disease and she wants to get elian beal for that. She is due for a flu vaccine. documented in this encounter Plan of Treatment Not on filedocumented as of this encounter Results CBC with Differential (06/24/2014 5:00 PM PDT) + + + + + + | Component | Value | Ref Range | Performed | Pathologist | | | | | At | Signature | + + + + + + | White Blood | 10.9 | 4.0 - 11.0 K/uL | [facility] | | | Cells | | | [facility] | | | | | | MEDICAL | | | | | | CENTER - | | | | | | LABORATORY | | + + + + + + | Red Blood | 4.75 | 3.70 - 5.20 | [facility] | | | Cells | | M/uL | [facility] | | | | [...] + | [facility] | [address] | [place] | [phone] | | [facility] | | [address] | | | - LABORATORY | | | | + + + + + | [facility] | [address] | [place] | | | [facility] | | [address], [facility] | | | - LABORATORY [...] | samples are screened | uIU/mL | [facility] | | | | using a 2nd [...] [address] | [place] | [phone] | | [facility] | | [address] | | | - LABORATORY | | | | + + + + + | [facility] | [address] | [place], [place] | | | [facility] | | [address], [facility] | | | - LABORATORY [...] | non- | FILTRATION | mL/min/1.73m2 | [facility] | | | [place] | RATE,ESTIMATED | | MEDICAL | | | | mL/min/1.24g1Smax than | | CENTER - | | [...] | 9.2 | 8.3 - 10.5 | [facility] | | | | | mg/dL | [facility] | | | | | | MEDICAL | | | | | | CENTER - | | | | | | LABORATORY | | + + + + + + | Albumin | 4.1 | 3.2 - 5.0 g/dL | [facility] | | | | | | ST. [...] + | [facility] | [address] | [place] | [phone] | | [facility] | | [address] | | | - LABORATORY | | | | + + + + + | [facility] | [address] | [place] | | | [facility] | | [id number] | | | - LABORATORY | | [...] | Urine | | Yellow | [facility] | | | | [...] - 1.030 | [facility] | | | [place], | | | [facility] | | | Urine | | | MEDICAL | | | | | | CENTER - | | | | | | LABORATORY | | + + + + + + | Protein, | 30 mg/dL | Negative, | [facility] | | | Urine | | Trace, 30 mg/dL | [facility] | | | [...] + | [facility] | [address] | [place], [place] | [phone] | | [facility] | | [address] | | | - LABORATORY | | | | + + + + + | [facility] | [address] | [place], [place] | | | [facility] | | [address] | | | - LABORATORY | | | | + + + + + documented in this encounter Visit Diagnoses + + | Diagnosis | + + | Chronic low back pain - Primary Lumbago | + + | RUQ abdominal pain Abdominal pain, right upper quadrant | + + | Hypothyroid Unspecified hypothyroidism | + + | Obesity Obesity, unspecified | + + | Tobacco abuse Tobacco use disorder | + + | Need for influenza vaccination Need for prophylactic vaccination and inoculation | | against influenza | + + documented in this encounter
--- OUTSIDE RECORDS SUMMARY | ~2020-05-24 | XMS | Encounter Summary ---
Demographics + + + | Address | [facility] | | | [place] [address] | + + + | Home Phone | | + + + | Preferred Language | Unknown | + + + | Marital Status | Single | + + + | Gnosticist Affiliation | 1041 | + + + | Race | Unknown | + + + | Ethnic Group | or | + + + Author + + + | Author | [facility] | | | and [place] | + + + | Organization | [facility] | | | and [...] [place], [place] | | | | | [address] | | + + + + + | Amy Schneider | ECON | [address] | | | | | [place], [place] | | | | | [address] | | + + + + + | Alisha Schneider | ECON | Unknown | | + + + + + Care Team Providers + +------+ + | Care Payroll Accounting Specialist Name | Role | Phone | + +------+ + | Jet Chaney MD | PCP | | + +------+ + Reason for Visit + +--------+ + | Reason | Onset | Comments | | | Date | | + +--------+ + | Imaging Only | 07/20/ | | | | 2019 | | + +--------+ + Encounter Details +--------+ + + + + | Date | Type | Department | Care Team | Description | +--------+ + + + + | 07/20/ | Telephone | [facility] | Jet Chaney, | Imaging Only | | 2018 | | [facility] | [address] | | | | | [address] | [place] | | | | | [place] | [address] | | | | | [address] | | | | | | [phone] | | | +--------+ + + + [...] Telephone Encounter - Jet Chaney MD - 07/20/2019 1:25 PM PSTLooks like it is alread y scheduled. Thanks! Prashanth Chaney MD elephone Encounter - Lydia Haque Cert MA - 07/20/2019 11:44 AM PSTUS pended. Please sign if you are agreea ble. elephone Enc gus - Lydia Haque Cert MA - 07/20/2019 11:41 AM PST----- Message from Tamar spivey RN sent at 01/26/2019 11:35 PDT ----- Regarding: Ritu- US Recall reason: US renal complete Recall date: 07/2019 Last procedure: 01/22/19 Dx: There is a 6 mm nonspecific structure in the upper left kidney. Recommend repeat ultra sound in 6 months. documented in this encounter Plan of Treatment Not on filedocumented as of this encounter Visit Diagnoses + + | Diagnosis | + + | Mass of kidney - Primary Unspecified disorder of kidney and ureter | + + documented in this encounter"
--- OUTSIDE RECORDS SUMMARY | ~2020-05-24 | XMS | Encounter Summary ---
Demographics + + + | Address | [facility] | | | [place] [address] | + + + | Home Phone [...] + | Organization | [facility] | | | and [place] [...] [place], [place] | | | | | [address] | | + + + + + | Amy Schneider | ECON | [address] | | | | | [place], [place] | | | | | [address] | | + + + + + | Alisha Schneider | ECON | Unknown | | + + + + + Care Team Providers + +------+ + | Care Planting Supervisor Name | Role | Phone | + +------+ + | Jet Chaney MD | PCP | | + +------+ + Reason for Visit +---------+--------+ + | Reason | Onset | Comments | | | Date | | +---------+--------+ + | Results | 02/04/ | | | | 2014 | | +---------+--------+ + Encounter Details +--------+ + + + + | Date | Type | Department | Care Team | Description | +--------+ + + + + | 02/04/ | Telephone | [facility] | Jet Chaney, | Results | | 2013 | | MEDICINE [place] | [address] | | | | | [address] | [place] | | | | | [place] | [address] | | | | | [address] | | | | | | [phone] | | | +--------+ + + + [...] this encounter Miscellaneous Notes Telephone Encounter - Alice Smith Cert MA - 02/04/2014 2:09 PM PDTCalled patient and relayed provider comments. Patient verbalized understanding. Scheduled US for 02/11/14 at 09 00 with a 0830 check in pt to have full bladder. Patient was given appointment information.E lectronically signed by Damian Jim MA at 02/04/2014 2:20 PM PDTTelephone Encounelizabeth westfall - Jet Chaney MD - 02/04/2014 1:13 PM PDTWill you please let Sochil know that her CT scan showed no emergent findings or obvious cause of her abdominal pain. However there w ere some incidental findings: she has cysts on both ovaries. Ovarian cysts are common and f requently harmless, but do recommend she have a pelvic ultrasound to evaluate them in more d etail. Will you please help her schedule this. She also has a tiny 3.4 mm nodule in her right lung. She is very low risk for having lung cancer and this does not look like a cancer. But, because she has the smoking history, I re commend we repeat a CT scan in 1 year to make sure it is not getting bigger. The best thing she can do for her health is quit smoking. I would like her to schedule follow-up to review this in more detail. Thanks, Prashanth Chaney MD documented in this e ncounter Plan of Treatment + +---------+--------+ + + | Name | Type | Priori | Associated Diagnoses | Order Schedule | | | | ty | | | + +---------+--------+ + + | US Non-Ob | Imaging | Routin | Ovarian cyst | Expected: | | Transvaginal | | e | | 02/04/2014, Expires: | | | | | | 02/04/2015 | + +---------+--------+ + + documented as of this encounter Results US Pelvis W Transvaginal (02/11/2014 9:30 AM PDT) + + | Specimen | + + | | + + + + + | Narrative | Performed At | + + + | US PELVIS W TRANSVAGINAL 02/11/2014 9:00 AM HISTORY: OVARIAN | MISCELANIOUS | | CYSTS. COMPARISON: None. PROTOCOL: Baker scale and Doppler | LAB | | images of the pelvis with transabdominal and transvaginal imaging. | | | FINDINGS: The uterus has a normal appearance with no focal lesions. | | | It measures 12.1 x 6.1 x 3.3 cm. Endometrium is 6 mm, which is | | | normal. Two tiny echogenic foci are noted within the fundal | | | endometrium that could represent calcifications. The right ovary | | | has a normal appearance. The right ovary measures 3.3 x 4.2 x 3.0 cm. | | | There is normal Doppler flow. The left ovary has a normal | | | appearance. The left ovary measures 3.2 x 4.3 x 2.9 cm. There is | | | normal Doppler flow. The cul-de-sac is normal. IMPRESSION - | | | NO EVIDENCE FOR OVARIAN CYSTS. Dictated and Signed by: Jose | | | MD Dilip Electronically signed: 02/11/2014 9:47 AM | | + + + + + | Procedure Note | + + | Kranthi, Rad Results In - 02/11/2014 9:50 AM PDT US PELVIS W TRANSVAGINAL 02/11/2014 9:00 | | AM HISTORY: OVARIAN CYSTS.COMPARISON: None.PROTOCOL: Baker scale and Doppler images of | | the pelvis with transabdominal andtransvaginal imaging.FINDINGS:The uterus has a normal | | appearance with no focal lesions. It measures 12.1 x 6.1x 3.3 cm. Endometrium is 6 mm, | | which is normal. Two tiny echogenic foci arenoted within the fundal endometrium that | | could represent calcifications.The right ovary has a normal appearance. The right ovary | | measures 3.3 x 4.2 x3.0 cm. There is normal Doppler flow.The left ovary has a normal | | appearance. The left ovary measures 3.2 x 4.3 x 2.9cm. There is normal Doppler flow.The | | cul-de-sac is normal.IMPRESSION -NO EVIDENCE FOR OVARIAN CYSTS.Dictated and Signed by: | | Jose Cherry MD Electronically signed: 02/11/2014 9:47 AM | |The uterus has a normal appearance with no focal lesions. It measures 12.1 x 6.1 | |x 3.3 cm. Endometrium is 6 mm, which is normal. Two tiny echogenic foci are | |noted within the fundal endometrium that could represent calcifications. | | | |The right ovary has a normal appearance. The right ovary measures 3.3 x 4.2 x | |3.0 cm. There is normal Doppler flow. | | | |The left ovary has a normal appearance. The left ovary measures 3.2 x 4.3 x 2.9 | |cm. There is normal Doppler flow. | | | |The cul-de-sac is normal. | | | |IMPRESSION - | |NO EVIDENCE FOR OVARIAN CYSTS. | | | |Dictated and Signed by: Jose Cherry MD | | Electronically signed: 02/11/2014 9:47 AM | + + + +---------+ + + | Performing | Address | City/State/Zipcode | Phone Number | | Organization | | | | + +---------+ + + | [facility]OUS LAB | | | [phone] | + +---------+ + + | MISCELANIOUS LAB | | | [phone] | + +---------+ + + documented in this encounter Visit Diagnoses + + | Diagnosis | + + | Incidental lung nodule, > 3mm and < 8mm - Primary Solitary pulmonary nodule | + + | Ovarian cyst Other and unspecified ovarian cyst | + + documented in this encounter"
--- OUTSIDE RECORDS SUMMARY | ~2020-05-24 | XMS | Encounter Summary ---
Demographics + + + | Address | [facility] | | | [place] [address] | + + + | Home Phone | | + + + | Preferred Language | Unknown | + + + | Marital Status | Single | + + + | Confucianist Affiliation | [id number] | + + + | Race | Unknown | + + + | Ethnic Group | or | + + + Author + + + | Author | [facility] | | | and [place] | + + + | Organization | [facility] | | | and [...] [place], [place] | | | | | [address] | | + + + + + | Amy Schneider | ECON | [address] | | | | | [place], [place] | | | | | [address] | | + + + + + | Alisha Schneider | ECON | Unknown | | + + + + + Care Team Providers + +------+ + | Care Creative Producer Name | Role | Phone | + +------+ + | Jet Chaney MD | PCP | | + +------+ + Encounter Details +--------+ + + + + | Date | Type | Department | Care Team | Description | +--------+ + + + + | 03/02/ | Clinical | [facility] | Jet Chaney, | Dysuria (Primary Dx) | | 2013 | Support | MEDICINE [place] | [address] | | | | | [address] | [place] | | | | | [place] | [address] | | | | | [address] | | | | | | [phone] | | | +--------+ + + + [...] + + documented as of this encounter Progress Kemi Sandoval LPN - 03/02/2014 10:52 AM PDTPatient came in and left a clean catch urine sample. Taken to the lab. documented in this encounter Plan of Treatment Not on filedocumented as of this encounter Procedures + +--------+ + + + | Procedure Name | Priori | Date/Time | Associated Diagnosis | Comments | | | ty | | | | + +--------+ + + + | URINALYSIS, REFLEX | Routin | 03/02/2014 | Dysuria | Results for this | | MICROSCOPIC AND/OR | e | 11:24 AM | | procedure are in the | | CULTURE | | PDT | | results section. | + +--------+ + + + documented in this encounter Results Urinalysis, Reflex Microscopic and/or Culture (03/02/2014 11:24 AM PDT) + + + + + [...] + + + | pH, Urine | 7.0 | 5.0 - 8.0 | [facility] | | | | | [facility] | | | | | | [facility] | | | | | | [facility] - | | | | | | LABORATORY | | + + + + + + | Specific | 1.025 | 1.001 - 1.030 | [facility] | | | [place], | | | [facility] | | | Urine | | | MEDICAL | | | | | | CENTER - | | | | | | LABORATORY | | + + + + + + | Protein, | Trace | Negative, | [facility] | | | [...] | + + + + + | [facility] | [address] | [place], [place] | [phone] | | [facility] | | [address] | | | - LABORATORY | | | | + + + + + | [facility] | [address] | [place], [place] | | | [facility] | | [id number] | | | - LABORATORY | | | | + + + + + documented in this encounter Visit Diagnoses + + | Diagnosis | + + | Dysuria - Primary | + + documented in this encounter"
--- OUTSIDE RECORDS SUMMARY | ~2020-05-24 | XMS | Encounter Summary ---
Demographics + + + | Address | [facility] | | | [place] [address] | + + + | Home Phone [...] + | Organization | [facility] | | | and [place] [...] [place], [place] | | | | | [address] | | + + + + + | Amy Schneider | ECON | [address] | | | | | [place], [place] | | | | | [address] | | + + + + + | Alisha Schneider | ECON | Unknown | | + + + + + Care Team Providers + +------+ + | Care Form Builder Name | Role | Phone | + +------+ + | Jet Chaney MD | PCP | | + +------+ + Encounter Details +--------+ + + + + | Date | Type | Department | Care Team | Description | +--------+ + + + + | 02/15/ | Hospital | [facility] | Vi Noguera | Sacroiliitis, not | | 2020 | Encounter | MED CTR XRAY [address] | [address]ULITA [address] | elsewhere classified | | | | [place] | [facility] | ([facility]) | | | | [place] [address] | [address] [place] | | | | | [phone] | [address] | | | | | | | | | | | | [employer], [facility] | | | | | | [place] | | +--------+ + + + + [...] this encounter Last Filed Vital Signs + +---------+ + + | Vital Sign | Reading | Time Taken | Comments | + +---------+ + + | Blood Pressure | 179/108 | 02/16/2020 3:42 PM | | | | | PDT | | + +---------+ + + | Pulse | 79 | 02/16/2020 3:21 PM | | | | | PDT | | + +---------+ + + | Temperature | - | - | | + +---------+ + + | Respiratory Rate | - | - | | + +---------+ + + | Oxygen Saturation | - | - | | + +---------+ + + | Inhaled Oxygen | - | - | | | Concentration | | | | + +---------+ + + | Weight | - | - | | + +---------+ + + | Height | - | - | | + +---------+ + + | Body Mass Index | - | - | | + +---------+ + + documented in this encounter Medications at Time of Discharge + + + +---------+ + + | Medication | Sig | Dispensed | Refills | Start | End Date | | | | | | Date | | + + + +---------+ + + | B Complex Vitamins | Take by mouth. 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 | each | | 20 | | | Controlled type 2 | DX E11.29 | | | | | | diabetes mellitus | | | | | | | with | | | | | | | microalbuminuria, | | | | | | | without long-term | | | | | | | current use of | | | | | | | insulin (HCC) | | | | | | + + + +---------+ + + | glucose blood | Use to test blood | 100 | 12 | 11/03/19 | | | test strips | sugar 1 time daily | each | | 20 | | | (FREESTYLE LITE) | Dx E11.29 | | | | | | stripIndications: | | | | | | | Controlled type 2 | | | | | | | diabetes mellitus | | | | | | | with | | | | | | | microalbuminuria, | | | | | | | without long-term | | | | | | | current use of | | | | | | | insulin (HCC) | | | | | | + [...] +---------+ + + | liothyronine | Take 1 tablet by | 30 | 0 | 12/18/19 | | | (CYTOMEL) 5 mcg | mouth Daily. For low | tablet | | 20 | | | tabletIndications: | thyroid | | | | | | Hypothyroidism, | | | | | | | unspecified type | | | | | | + + + +---------+ + + | lisinopril | Take 1 tablet by | 90 | 1 | 11/02/19 | | | (PRINIVIL, ZESTRIL) | mouth Daily. 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 | tablet | | 20 | 0 | | mg 24 hr | For diabetes | | | | | | tabletIndications: | | | | | | | Controlled type 2 | | | | | | | diabetes mellitus | | | | | | | with | | | | | | | microalbuminuria, | | | | | | | without long-term | | | | | | | current use of | | | | | | | insulin ([facility]) | | | | | | + + + +---------+ + + | pantoprazole | Take 1 tablet by | 30 | 5 | 04/30/20 | | | (PROTONIX) 40 mg | mouth every morning | tablet | | 19 | 0 | | tabletIndications: | (before breakfast). | [...] | + +--------+ + + + | [place] SACROILIAC | Routin | 02/16/2020 | Sacroiliitis, not | Results for this | | INJECTION RIGHT | e | 3:21 PM | elsewhere classified | procedure are in the | | | | PDT | ([facility]) | results section. | + +--------+ + + + | [place] SACROILIAC | Routin | 02/16/2020 | Sacroiliitis, not | Results for this | | INJECTION LEFT | e | 3:21 PM | elsewhere classified | procedure are in the | | | | PDT | ([facility]) | results section. | + +--------+ + + + documented in this encounter Results [place] Sacroiliac Injection Left (02/16/2020 3:21 PM PDT) + + | Specimen | + + | | + + + + + | Narrative | Performed At | + + + | | [facility] | | 02/16/2020Bilateral Sacroiliac Joint InjectionClinical History: | | | Sacroiliitis ICD-10 M46.1 Baudilio Schneider presents to the fluoroscopy | | | suite for fluoroscopically guided bilateral sacroiliac joint steroid | | | injections as part of conservative management for chronic pain with | | | sacroiliitis. After informed consent was obtained the patient laid in | | | the prone position on the fluoroscopy table. The bilateral sacroiliac | | | joints were identified under fluoroscopic guidance. The areas were | | | prepped and draped in sterile fashion. A 25 gauge 1-1/2 inch needle | | | was inserted into each region and approximately 3 mL of buffered 1% | | | lidocaine was infused. Then a 22 gauge spinal needle was inserted into | | | the inferior joint spaces under fluoroscopic guidance. Confirmation | | | of needle placement into the sacroiliac joints was obtained with | | | infusion of approximately 1 mL of Omnipaque contrast which showed flow | | | within the joint spaces. Then a combination of 2 mL 1% lidocaine and | | | 2 mL of 40 mg per milliliter triamcinolone was infused divided between | | | the two sides. The patient tolerated the procedure well without | | | complications. Pre- and post procedure blood pressures were stable. | | | The patient was given verbal as well as written followup instructions. | | | Prior to the start of the procedure the following were performed and | | | verified including correct patient identity, correct site/side marked | | | and visible, agreement of the procedure to be done, correct patient | | | positioning and an accurate procedure consent form. Any safety | | | precautions based on clinical history and/or medications have been | | | addressed. I personally performed the procedure above. Estimated blood | | | loss: MinimalComplications: NoneFindings: As expectedAnesthesia: | | | Local 1% Lidocaine | | | | | |I personally performed the procedure above. | | | | | |Estimated blood loss: Minimal | | |Complications: None | | |Findings: As expected | | |Anesthesia: Local 1% Lidocaine | | | | | + + + + +---------+ + + | Performing | Address | City/State/Zipcode | Phone Number | | Organization | | | | + +---------+ + + | [facility] | | | | + +---------+ + + [place] Sacroiliac Injection Right (02/16/2020 3:21 PM PDT) + + | Specimen | + + | | + + + + + | Narrative | Performed At | + + + | | [facility] | | 02/16/2020Bilateral Sacroiliac Joint InjectionClinical History: | | | Sacroiliitis ICD-10 M46.1 Baudilio Schneider presents to the fluoroscopy | | | suite for fluoroscopically guided bilateral sacroiliac joint steroid | | | injections as part of conservative management for chronic pain with | | | sacroiliitis. After informed consent was obtained the patient laid in | | | the prone position on the fluoroscopy table. The bilateral sacroiliac | | | joints were identified under fluoroscopic guidance. The areas were | | | prepped and draped in sterile fashion. A 25 gauge 1-1/2 inch needle | | | was inserted into each region and approximately 3 mL of buffered 1% | | | lidocaine was infused. Then a 22 gauge spinal needle was inserted into | | | the inferior joint spaces under fluoroscopic guidance. Confirmation | | | of needle placement into the sacroiliac joints was obtained with | | | infusion of approximately 1 mL of Omnipaque contrast which showed flow | | | within the joint spaces. Then a combination of 2 mL 1% lidocaine and | | | 2 mL of 40 mg per milliliter triamcinolone was infused divided between | | | the two sides. The patient tolerated the procedure well without | | | complications. Pre- and post procedure blood pressures were stable. | | | The patient was given verbal as well as written followup instructions. | | | Prior to the start of the procedure the following were performed and | | | verified including correct patient identity, correct site/side marked | | | and visible, agreement of the procedure to be done, correct patient | | | positioning and an accurate procedure consent form. Any safety | | | precautions based on clinical history and/or medications have been | | | addressed. I personally performed the procedure above. Estimated blood | | | loss: MinimalComplications: NoneFindings: As expectedAnesthesia: | | | Local 1% Lidocaine | | | | | |I personally performed the procedure above. | | | | | |Estimated blood loss: Minimal | | |Complications: None | | |Findings: As expected | | |Anesthesia: Local 1% Lidocaine | | | | | + + + + +---------+ + + | Performing | Address | City/State/Zipcode | Phone Number | | Organization | | | | + +---------+ + + | [facility] | | | | + +---------+ + + documented in this encounter Visit Diagnoses + + | Diagnosis | + + | Sacroiliitis, not elsewhere classified (HCC) Sacroiliitis, not elsewhere classified | + + documented in this encounter Administered Medications + +--------+ +-------+------+------+ | Medication Order | MAR | Action | Dose | Rate | Site | | | Action | Date | | | | + +--------+ +-------+------+------+ | iohexol (OMNIPAQUE 300) 300 | Given | 02/16/20 | 4 mLs | | | | mg/mL injection 4 mL 4 mL, | | 20 3:03 | | | | | Intra-articular, ONCE, Phyllis 02/16/20 | | PM PDT | | | | | at 1515, For 1 dose | | | | | | + +--------+ +-------+------+------+ +---+---+ | | | +---+---+ + +-------+ +-------+---+---+ | lidocaine (PF) 1% injection 2 | Given | 02/16/20 | 2 mLs | | | | mL 2 mL, Intra-articular, ONCE, | | 20 3:06 | | | | | 02/16/20 at 1515, For 1 dose | | PM PDT | | | | + +-------+ +-------+---+---+ +---+---+ | | | +---+---+ + +-------+ +-------+---+ + | lidocaine buffered 0.9% | Given | 02/16/20 | 6 mLs | | Other | | injection 6 mL 6 mL, | | 20 3:00 | | | (Comment | | Intradermal, ONCE, 02/16/20 at | | PM PDT | | | ) | | 1515, For 1 dose | | | | | | + +-------+ +-------+---+ + +---+---+ | | | +---+---+ + +-------+ +-------+---+---+ | triamcinolone acetonide | Given | 02/16/20 | 80 mg | | | | (KENALOG-40) 40 mg/mL injection | | 20 3:06 | | | | | 80 mg 80 mg, Intra-articular, | | PM PDT | | | | | ONCE, Phyllis 02/16/20 at 1515, For 1 | | | | | | | dose, Shake well. Not for IV | | | | | | | use., | | | | | | + +-------+ +-------+---+---+ +---+---+ | | | +---+---+ documented in this encounter"
--- OUTSIDE RECORDS SUMMARY | ~2020-05-24 | XMS | Encounter Summary ---
Demographics + + + | Address | [facility] | | | [place] [address] | + + + | Home Phone [...] + + + | Author | [facility] | | | and [place] | + + + | Organization | [facility] | | | and [place] [...] [place], [place] | | | | | [address] | | + + + + + | Amy Schneider | ECON | [address] | | | | | [place], [place] | | | | | [address] | | + + + + + | Alisha Schneider | ECON | Unknown | | + + + + + Care Team Providers + +------+ + | Care Sample Clerk Name | Role | Phone | + +------+ + | Jet Chaney MD | PCP | | + +------+ + Reason for Referral Consultation (Routine) +--------+ + + + + + | Status | Reason | Specialty | Diagnoses / | Referred By | Referred To | | | | | Procedures | Contact | Contact | +--------+ + + + + + | Closed | Specialty | Gastroenterol | Diagnoses | Ritu, | Rubén, | | | Services | ogy | Chronic | Jet Dempsey MD | Hill Holder MD | | | Required | | abdominal | [address] | [address], | | | | | pain | [address] [place] | [address] | | | | | | [place], [place] | [place], | | | | | | [address] | [place] [address] | | | | | | Phone: | Phone: | | | | | | [phone] | [phone] | | | | | | Fax: | Fax: | | | | | | [phone] | [phone] | +--------+ + + + + + Encounter Details +--------+ + + + + | Date | Type | Department | Care Team | Description | +--------+ + + + + | 07/28/ | Orders Only | [facility] | Jet Chaney, | Chronic abdominal | | 2012 | | MEDICINE [place] | [address] | pain (Primary Dx) | | | | [address] | [place] | | | | | [place] | [address] | | | | | [address] | | | | | | [phone] | | | +--------+ + + + [...] as of this encounter Plan of Treatment + + +--------+ + + | Name | Type | Priori | Associated Diagnoses | Order Schedule | | | | ty | | | + + +--------+ + + | Ambulatory referral | Outpatient | Routin | Chronic abdominal | Ordered: 07/28/2013 | | to Gastroenterology | Referral | e | pain | | + + +--------+ + + documented as of this encounter Visit Diagnoses + + | Diagnosis | + + | Chronic abdominal pain - Primary Abdominal pain, unspecified site | + + documented in this encounter"
--- OUTSIDE RECORDS SUMMARY | ~2020-05-24 | XMS | Encounter Summary ---
Demographics + + + | Address | [facility] | | | [place] [address] | + + + | Home Phone | | + + + | Preferred Language | Unknown | + + + | Marital Status | Single | + + + | Caodaism Affiliation | 1041 | + + + | Race | Unknown | + + + | Ethnic Group | or | + + + Author + + + | Author | [facility] | | | and [place] | + + + | Organization | [facility] | | | and [...] [place], [place] | | | | | [address] | | + + + + + | Amy Schneider | ECON | [address] | | | | | [place], [place] | | | | | [address] | | + + + + + | Alisha Schneider | ECON | Unknown | | + + + + + Care Team Providers + +------+ + | Care Neon Installer Name | Role | Phone | + +------+ + | Jet Chaney MD | PCP | | + +------+ + Encounter Details +--------+ + + + + | Date | Type | Department | Care Team | Description | +--------+ + + + + | 04/24/ | Abstract | [facility] | Jet Chaney, | | | 2017 | | MEDICINE [place] | [address] | | | | | [address] | [place] | | | | | [place] | [address] | | | | | [address] | | | | | | [phone] | | | +--------+ + + + [...] | + +--------+ + + + | EXTERNAL LAB: HIGH | Routin | 01/27/2018 | | Results for this | | RISK HPV | e | | | procedure are in the | | | | | | results section. | + +--------+ + + + documented in this encounter Results External Lab: High Risk HPV (01/27/2018) + + + + + + | Component | Value | Ref Range | Performed | Pathologist | | | | | At | Signature | + + + + + + | EXTERNAL: | NegativeComment: per | | | | | HIGH RISK | In[facility], HPV was negative | | | | | HPV | | | | | + + + + + + documented in this encounter Visit Diagnoses Not on filedocumented in this encounter"
--- OUTSIDE RECORDS SUMMARY | ~2020-05-24 | XMS | Encounter Summary ---
Demographics + + + | Address | [facility] | | | [place] [address] | + + + | Home Phone | | + + + | Preferred Language | Unknown | + + + | Marital Status | Single | + + + | Scientologist Affiliation | 1041 | + + + | Race | Unknown | + + + | Ethnic Group | or | + + + Author + + + | Author | [facility] | | | and [place] | + + + | Organization | [facility] | | | and [...] [place], [place] | | | | | [address] | | + + + + + | Amy Schneider | ECON | [address] | | | | | [place], [place] | | | | | [address] | | + + + + + | Alisha Schneider | ECON | Unknown | | + + + + + Care Team Providers + +------+ + | Care Pt Skilled Name | Role | Phone | + +------+ + | Jet Chaney MD | PCP | | + +------+ + Reason for Visit + +--------+ + | Reason | Onset | Comments | | | Date | | + +--------+ + | Appointment | 08/13/ | | | | 2015 | | + +--------+ + Encounter Details +--------+ + + + + | Date | Type | Department | Care Team | Description | +--------+ + + + + | 08/13/ | Telephone | [facility] [place] | [place] MD | Appointment | | 2015 | | GASTROENTEROLOGY | [address], [place] | | | | | [address] [place] | [address] [place], [place] | | | | | [address] [place], [place] | [address] | | | | | [address] | | | | | | [phone] | | | +--------+ + + + [...] Telephone Encounter - Fifi Zimmerman RN - 08/13/2016 12:24 PM PSTLeft message asking patient to arrive for her appointment at 2 PM instead of 4 PM today. documented in this encounter Plan of Treatment Not on filedocumented as of this encounter Visit Diagnoses Not on filedocumented in this encounter"
--- OUTSIDE RECORDS SUMMARY | ~2020-05-24 | XMS | Encounter Summary ---
Demographics + + + | Address | [facility] | | | [place] [address] | + + + | Home Phone | | + + + | Preferred Language | Unknown | + + + | Marital Status | Single | + + + | Rastafarian Affiliation | 1041 | + + + | Race | Unknown | + + + | Ethnic Group | or | + + + Author + + + | Author | [facility] | | | and [place] | + + + | Organization | [facility] | | | and [...] [place], [place] | | | | | [address] | | + + + + + | Amy Schneider | ECON | [address] | | | | | [place], [place] | | | | | [address] | | + + + + + | Alisha Schneider | ECON | Unknown | | + + + + + Care Team Providers + +------+ + | Care Combination Presser Name | Role | Phone | + +------+ + | Jet Chaney MD | PCP | | + +------+ + Encounter Details +--------+ + + + + | Date | Type | Department | Care Team | Description | +--------+ + + + + | 09/03/ | Hospital | [facility] | Jet Chaney, | Ovarian cyst, left | | 2019 | Encounter | [facility] | [address] | | | | | [address] [place] | [place], [place] | | | | | [place] | [address] | | | | | [address] | | | | | | [phone] | | | +--------+ + + + [...] + + + +---------+ + + | linaclotide | Take 1 capsule by | 30 | 2 | 05/28/20 | | | (LINZESS) 145 mcg | mouth every morning | capsule | | 19 | 9 | | capsule | (before breakfast). | | | | | + + + +---------+ + + | liothyronine | | | 0 | 03/31/20 | | | (CYTOMEL) 5 mcg | | | | 19 | 9 | | tablet | | | | | | + + + +---------+ + + | lubiprostone | Take 1 capsule by | 60 | 5 | 04/30/20 | | | (AMITIZA) 8 mcg | mouth 2 times daily | capsule | | 19 | 9 | | capsuleIndications: | (with breakfast & | | | | | | Irritable bowel | dinner). To help | | | | | | syndrome with | bowel movements | | | | | | constipation | | | | | | + + + +---------+ + + | lubiprostone | Take 1 capsule by | 8 | 0 | 04/30/20 | | | (AMITIZA) 8 mcg | [...] | US PELVIS W | Routin | 09/03/2019 | Ovarian cyst, left | Results for this | | TRANSVAGINAL | e | 4:35 PM | | procedure are in the [...] + + | Performing | Address | City/[facility] | Phone Number | | Organization | | | | + +---------+ + + | [facility] | | | | + +---------+ + + documented in this encounter Visit Diagnoses + + | Diagnosis | + + | Ovarian cyst, left Other and unspecified ovarian cyst | + + documented in this encounter"
--- OUTSIDE RECORDS SUMMARY | ~2020-05-24 | XMS | Encounter Summary ---
Demographics + + + | Address | [facility] | | | [place] [address] | + + + | Home Phone [...] + + + | Author | [facility] | | | and [place] | + + + | Organization | [facility] | | | and [place] [...] [place], [place] | | | | | [address] | | + + + + + | Amy Schneider | ECON | [address] | | | | | [place], [place] | | | | | [address] | | + + + + + | Alisha Schneider | ECON | Unknown | | + + + + + Care Team Providers + +------+ + | Care Chief Jailer Name | Role | Phone | + [...] Description | +--------+---------+ + + + | 01/12/ | Office | [facility] | Jet Chaney, | Chronic midline low | | 2016 | Visit | [facility] | [address] | back pain without | | | | [address] | [place] | sciatica (Primary | | | | [place] | [address] | Dx); Molluscum | | | | [address] | | contagiosum; Tobacco | | | | [phone] | | abuse | +--------+---------+ + + + Social History [...] + + + | Blood Pressure | 110/82 | 01/13/2016 4:29 PM | | | | | PDT | | + + + + + | Pulse | 74 | 01/13/2016 4:29 PM | | | | | PDT | | + + + + + | Temperature | 36.3 C (97.4 F) | 01/13/2016 4:29 PM | | | | | PDT | | + + + + + | Respiratory Rate | 14 | 01/13/2016 4:29 PM | | | | | PDT | | + + + + + | Oxygen Saturation | 98% | 01/13/2016 4:29 PM | | | | | PDT | | + + + + + | Inhaled Oxygen | - | - | | | Concentration | | | | + + + + + | Weight | 95.6 kg (210 lb 11.2 | 01/13/2016 4:29 PM | | | | oz) | PDT | | + + + + + | Height | 157.5 cm (5' 2") | 01/13/2016 4:29 PM | | | | | PDT | | + + + + + | Body Mass Index | 38.54 | 01/13/2016 4:29 PM | | | | | PDT | | + + + + + documented in this encounter Patient Instructions Patient Instructions Jet Chaney MD - 01/13/2016 5:07 PM PDTBP 110/82 mmHg | Pulse 7 4 | Temp(Src) 36.3 C (97.4 F) (Temporal) | Resp 14 | Ht 1.575 m (5' 2") | Wt 95.573 kg ( 210 lb 11.2 oz) | BMI 38.53 kg/m2 | SpO2 98% Keep up the great work with the weight loss! Continue physical therapy as you are doing. The best thing you can do for your health is quit smoking. Start the nortriptyline as prescribed to help the back pain and sleep. It takes 2-3 weeks of consistent use to help improve the pain. If you feel manic or have thoughts of hurting y ourself or others - call our office, 911, crisis line , or [phone], or go to the ER. Have labs in February. You do NOT need to fast. Back Care Tips Caring for your back These are things you can do to prevent a recurrence of acute back pain and to reduce sympto ms from chronic back pain: Maintain a healthy weight. If you are overweight, losing weight will help most types of back pain. Exercise is an important part of recovery from most types of back pain. The back is supp orted by the muscles behind and in front of the spine. This means both the back muscles and the abdominal muscles must be strengthened to provide better support for your spine. Swimming and brisk walking are good overall exercises to improve your fitness level. Practice safe lifting methods (below). Practice good posture when sitting, standing and walking. Avoid prolonged sitting. This puts more stress on the lower back than standing or walking. Wear quality shoes with sufficient arch support. Foot and ankle alignment can affect gary k symptoms. Women should avoid high heels. Therapeutic massage can helprelax the back muscles without stretching them. During the first 24 to 72 hours after an acute injury or flare-up of chronic back pain, apply an ice pack to the painful area for 20 minutes and then remove it for 20 minutes over a period of 60 to 90 minutes or several times a day. As a safety precaution, do not use a he ating pad at bedtime. Sleeping on a heating pad can lead to skin howe or tissue damage. Ice and heat therapies can be alternated. Medications Talk to your doctor before using medications, especially if you have other medical problems or are taking other medicines. You may use acetaminophen or ibuprofen to control pain, unless other pain medicine was p rescribed. If you have chronic conditions like diabetes, liver or kidney disease, stomach ul cers or gastrointestinal bleeding, or are taking blood thinners, talk with your doctor befor e taking any meidcations. Be careful if you are given prescription pain medicines, narcotics, or medication for mu scle spasm. They can cause drowsiness, affect your coordination, reflexes and judgment. Do n ot drive or operate heavy machinery. Lumbar stretch Here is a simple stretching exercise that will help relax muscle spasm and keep your back m ore limber. If exercise makes your back pain worse, don t do it. Lie on your back with your knees bent and both feet on the ground. Slowly raise your left knee to your chest as you flatten your lower back against the zain or. Hold for 5 seconds. Relax and repeat the exercise with your right knee. Do 10 of these exercises for each leg. Safe lifting method Don t bend over at the waist to lift an object off the floor. Instead, bend your kne es and hips in a squat. Keep your back and head upright Hold the object close to your body, directly in front of you. Straighten your legs to lift the object. Lower the object to the floor in the reverse fashion. If you must slide something across the floor, push it. Posture tips Sitting Sit in chairs with straight backs or low-back support. rKeep your k nees lower than your hi p, with your feet flat on the floor. When driving, sit up straight. Adjust the seat forward so you are not leaning toward the st EpiEP wheel. A small pillow or rolled towel behind your lower back may help if you are dr iving long distances. Standing When standing for long periods, shift most of your weight to one leg at a time. Alternate l egs every few minutes. Sleeping The best way to sleep is on your side with your knees bent. Put a low pillow under your hea d to support your neck in a neutral spine position. Avoid thick pillows that bend your neck to one side. Put a pillow between your legs to further relax your lower back. If you sleep o n your back, put pillows under your knees to support your legs in a slightly flexed position . Use a firm mattress. If your mattress sags, replace it, or use a 1/2-inch plywood board un zeferino the mattress to add support. Follow-up care Follow up with yourhealth care provideror as directed by our staff. If X-rays, a CT scan or an MRI scan were taken, they will be reviewed by a radiologist. You will be notified of any new findings that may affect your care. Call 911 Seek emergency medical care if any of the following occur: Trouble breathing Confusion Very drowsy or trouble breathing Fainting or loss of consciousness Rapid or very slow heart rate Loss of bwel or bladder control When to seek medical care Call your health care provider if any of the following occur: Pain becomes worse or spreads to your arms or legs Weakness or numbness in one or both arms or legs Numbness in the groin area [id number] [employer]. [address] [place] [address]. All righ ts reserved. This information is not intended as a substitute for professional medical care. Always follow your healthcare professional's instructions. documented in this encounter Progress Notes Jet Chaney MD - 01/13/2016 4:56 PM PDTFormatting of this note might be different fr om the original. Subjective: Patient ID: Baudilio Schneider is a 35 y.o. female here for back pain. HPI She continues to have daily low back pain. It does not radiate. Fluctuates between 2-7/10 , currently 5/10. Worse with laying flat or bending over at waist. She takes ibuprofen 600 mg and it does help a little, but not a lot. She started PT this week. She is pleased wit h it so far. And she has been exercising more. She would like a pill to take at night to h elp with sleep. No fever, saddle paresthesias, leg paresthesias, bowel/bladder dysfunction, dysuria, hematuria. She has a new bump on forehead in addition to 2 that were previously frozen. She cannot re call if they changed after last attempt at freezing 2 years ago. She is losing weight via diet, exercise. She continues to smoke. Patient's medications, allergies, past medical, surgical, social and family histories were obtained and reviewed as appropriate. Review of Systems See HPI BP 110/82 mmHg | Pulse 74 | Temp(Src) 36.3 C (97.4 F) (Temporal) | Resp 14 | Ht 1.575 m (5' 2") | Wt 95.573 kg (210 lb 11.2 oz) | BMI 38.53 kg/m2 | SpO2 98% Objective: Physical Exam Constitutional: Very pleasant, well developed, NAD Cardiovascular: Normal rate, regular rhythm, normal heart sounds and intact distal pulses. Exam reveals no gallop and no friction rub. No murmur heard. Pulmonary/Chest: Breath sounds normal. No respiratory distress. She has no wheezes. She has no rales. Musculoskeletal: She exhibits no edema. Symmetric 5/5 LE strength bilaterally. Able to walk on toes, heels, squat & waddle Neurological: Patella, Achilles 1+ symmetric Skin: 3 flesh colored 1-2 mm papules: left mid forehead, medial to left eybrow, bridge of nose Psychiatric: She has a normal mood and affect. Her behavior is normal. Thought content norm al. Assessment: Baudilio was seen today for back pain. Diagnoses and all orders for this visit: Chronic midline low back pain without sciatica: Stable. No concerning findings on MRI. P reviously had improvement with nortriptyline - Continue PT - Continue to work on weight loss - Start nortriptyline - Educated on warning signs Orders: - nortriptyline (PAMELOR) 25 mg capsule; Take 10 mg by mouth nightly x 1 week, then inc rease to 25 mg nightly. To help prevent back pain. - nortriptyline (PAMELOR) 10 MG capsule; Take 10 mg by mouth nightly x 1 week, then inc rease to 25 mg nightly. To help prevent back pain. Molluscum contagiosum: - Liquid nitrogen x 3 freeze thaw cycles - If not resolved - refer to dermatology or shave biopsy Tobacco abuse - Advised to quit Return in about 6 weeks (around 02/24/2016). Prashanth Chaney MD Kemi Jaime LP N - 01/13/2016 4:29 PM PDTPatient is here for a back pain follow-up. documented in this encounter Plan of Treatment Not on filedocumented as of this encounter Visit Diagnoses + + | Diagnosis | + + | Chronic midline low back pain without sciatica - Primary | + + | Molluscum contagiosum | + + | Tobacco abuse Tobacco use disorder | + + documented in this encounter
--- OUTSIDE RECORDS SUMMARY | ~2020-05-24 | XMS | Encounter Summary ---
Demographics + + + | Address | [facility] | | | [place] [address] | + + + | Home Phone | | + + + | Preferred Language | Unknown | + + + | Marital Status | Single | + + + | Taoism Affiliation | 1041 | + + + | Race | Unknown | + + + | Ethnic Group | or | + + + Author + + + | Author | [facility] | | | and [place] | + + + | Organization | [facility] | [...] [place], [place] | | | | | [address] | | + + + + + | Amy Schneider | ECON | [address] | | | | | [place], [place] | | | | | [address] | | + + + + + | Alisha Schneider | ECON | Unknown | | + + + + + Care Team Providers + +------+ + | Care Intrusion Analyst Name | Role | Phone | + +------+ + | Jet Chaney MD | PCP | | + +------+ + Encounter Details +--------+ + + + + | Date | Type | Department | Care Team | Description | +--------+ + + + + | 07/20/ | Hospital | [facility] | Jet Chaney, | Chronic abdominal | | 2012 | Encounter | [facility] | MD Claudy Hendrix [address] | pain; Hypothyroidism | | | | [address] [place] | [place], [place] | | | | | [place], [place] | [address] | | | | | [address] | | | | | | [phone] | | | +--------+ + + + [...] +---------+ + + | omeprazole | Take 2 capsules by | 60 | 3 | 06/16/20 | | | (PRILOSEC) 20 mg | mouth Daily. | capsule | | 13 | 4 | | capsuleIndications: | | | | | | | Abdominal pain | | | | | | [...] | + +--------+ + + + | H. PYLORI ANTIBODY | Routin | 07/20/2013 | | Results for this | | SCREEN | e | 3:16 PM | | procedure are in the | | | | PST | | results section. | + +--------+ + + + | TSH | Routin | 07/20/2013 | | Results for this | | | e | 3:16 PM | | procedure are in the | | | | PST | | results section. | + +--------+ + + + | H. PYLORI ANTIBODY | Routin | 07/20/2013 | Chronic abdominal | Results for this | | SCREEN | e | 3:01 PM | pain | procedure are in the | | | | PST | | results section. | + +--------+ + + + | TSH | Routin | 07/20/2013 | Hypothyroidism | Results for this | | | e | 3:01 PM | | procedure are in the | | | | PST | | results section. | + +--------+ + + + documented in this encounter Results H. pylori Antibody Screen (07/20/2013 3:16 PM PST) + + + + + + | Component | Value | Ref Range | Performed | Pathologist | | | | | At | Signature | + + + + + + | Helicobacte | NEGATIVEComment: | NEGATIVE | [facility] | | | r pylori Ab | @INTERNAL CONTROL OK?: | | [facility] | | | | RED CONTROL LINE | | MEDICAL | | | | APPEARS? YES | | CENTER - | | | | | | LABORATORY | | + + + + + + + + | Specimen | + + | | + + + + + + + | Performing | Address | City/State/Zipcode | Phone Number | | Organization | | | | + + + + + | [facility] | [address] | [place] | [phone] | | [facility] | | [address] | | | - LABORATORY | | | | + + + + + | [facility] | [address] | [place], [place] | | | [facility] | | [id number] | | | - LABORATORY | | | | + + + + + TSH (07/20/2013 3:16 PM PST) + + + + + + | Component | Value | Ref Range | Performed | Pathologist | | | | | At | Signature | + + + + + + | TSH | 0.44Comment: Testing | 0.34 - 5.60 | [facility] | | | | performed on the Cathy | uIU/mL | [facility] | | | | [address] [...] [address] | [place] | [phone] | | [facility] | | [address] | | | - LABORATORY | | | | + + + + + | [facility] | [address] | [place], [place] | | | [facility] | | [address], [facility] | | | - LABORATORY | | | | + + + + + TSH (07/20/2013 3:01 PM PST) + + + + + + | Component | Value | Ref Range | Performed | Pathologist | | | | | At | Signature | + + + + + + | TSH | 0.44Comment: Testing | 0.34 - 5.60 | [facility] | | | | performed on the Cathy | uIU/mL | [facility] | | | | [address] | [...] + | [facility] | [address] | [place], [place] | [phone] | | [facility] | | [address] | | | - LABORATORY | | | | + + + + + | [facility] | [address] | [place], [place] | | | [facility] | | [id number] [place] [address] | | | - LABORATORY | | | | + + + + + H. pylori Antibody Screen (07/20/2013 3:01 PM PST) + + + + + + | Component | Value | Ref Range | Performed | Pathologist | | | | | At | Signature | + + + + + + | Helicobacte | NEGATIVE | NEGATIVE | [facility] | | | r pylori Ab | | | [facility] | | [...] + | [facility] | [address] | [place], [place] | [phone] | | [facility] | | [address] | | | - LABORATORY | | | | + + + + + | [facility] | [address] | [place], [place] | | | [facility] | | [id number] | | | - LABORATORY | | | | + + + + + documented in this encounter Visit Diagnoses + + | Diagnosis | + + | Chronic abdominal pain Abdominal pain, unspecified site | + + | Hypothyroidism Unspecified hypothyroidism | + + documented in this encounter"
--- OUTSIDE RECORDS SUMMARY | ~2020-05-24 | XMS | Encounter Summary ---
Demographics + + + | Address | [address] | | | [place] [address] | + + + | Home Phone | | + + + | Preferred Language | Unknown | + + + | Marital Status | Single | + + + | Jainism Affiliation | 1041 | + + + | Race | Unknown | + + + | Ethnic Group | or | + + + Author + + + | Author | [facility] | | | and [place] | + + + | Organization | [facility] | | | and [place] | [...] [place], [place] | | | | | [address] | | + + + + + | Amy Schneider | ECON | [address] | | | | | [place], [place] | | | | | [address] | | + + + + + | Alisha Schneider | ECON | Unknown | | + + + + + Care Team Providers + +------+ + | Care Supervisor Green End Department Name | Role | Phone | + +------+ + | Zen Chaney MD | PCP | | + +------+ + Reason for Referral Evaluate & Treat (Routine) +--------+ + + + + + | Status | Reason | Specialty | Diagnoses / | Referred By | Referred To | | | | | Procedures | Contact | Contact | +--------+ + + + + + | Closed | Specialty | Physical | Diagnoses | [facility] | | | | Services | Therapy | Chronic | Eloy Yusuf MD | PHYSICAL | | | Required | | midline low | [address] | THERAPY - | | | | | back pain | [address] | [place] | | | | | without | [place], | [place] | | | | | sciatica | [place] [address] | [address] | | | | | Lumbar facet | Phone: | ST | | | | | arthropathy | [phone] | [facility] | | | | | Procedures | Fax: | [place], [place] | | | | | Sent to | [phone] | [address] | | | | | HIM | | Phone: | | | | | | | [phone] | | | | | | | Fax: | | | | | | | [phone] | +--------+ + + + + + Reason for Visit + + + | Reason | Comments | + + + | Back Pain | lower back pain | + + + Encounter Details +--------+---------+ + + + | Date | Type | Department | Care Team | Description | +--------+---------+ + + + | 09/18/ | Office | [facility] | Eloy Mayorga, | Chronic midline low | | 2017 | Visit | PHYSIATRY [address] | MD [address] | back pain without | | | | [address] | [place] | sciatica (Primary | | | | [place] | [address] | Dx); Lumbar facet | | | | [address] | | arthropathy; Non | | | | [phone] | | morbid obesity, | | | | | | unspecified obesity | | | | | | type | +--------+---------+ + + + Social History [...] + + + | Blood Pressure | 127/83 | 09/18/2016 2:50 PM | | | | | PST | | + + + + + | Pulse | 66 | 09/18/2016 2:50 PM | | | | | PST | | + + + + + | Temperature | - | - | | + + + + + | Respiratory Rate | 16 | 09/18/2016 2:50 PM | | | | | PST | | + + + + + | Oxygen Saturation | - | - | | + + + + + | Inhaled Oxygen | - | - | | | Concentration | | | | + + + + + | Weight | 93 kg (205 lb) | 09/18/2016 2:50 PM | | | | | PST | | + + + + + | Height | 157.5 cm (5' 2") | 09/18/2016 2:50 PM | | | | | PST | | + + + + + | Body Mass Index | 37.49 | 09/18/2016 2:50 PM | | | | | PST | | + + + + + documented in this encounter Patient Instructions Patient Instructions Eloy Mayorga MD - 09/18/2016 3:18 PM PSTIt is recommended that yo u work toward weight loss through diet and exercise. Weight loss may help reduce your back pain. Change Meloxicam to 7.5 mg once tablet, by mouth, with food, twice daily. Resume physical therapy. Continue exercises as outlined by physical therapy on a daily bas is. Laboratory tests have been requested. Please go to the lab to complete your laboratory cruz ting. The results of your laboratory testing will be reviewed at your next appointment. If your labratory results demonstrate any emergent results the clinic will contact you. Return to the clinic in 2 months. documented in this encounter Progress Notes Eloy Mayorga MD - 09/18/2016 3:36 PM PST [facility] PHYSIATRY [address] [facility] [address] OFFICE NOTE ELOY MAYORGA JR, MD Patient: PAVITHRA SCHNEIDER Admitting: MR #: [id number] LOC: PT TYPE: Adm Date: 09/18/2016 : 1980 PHYSICAL MEDICINE AND REHABILITATION PROGRESS NOTE DATE OF : 1980 PRIMARY CARE PROVIDER: Zen Chaney MD DATE OF SERVICE: 09/18/2016 PATIENT IDENTIFICATION: A 36-year-old female with chronic midline low back pain and facet joint effusion. HISTORY OF PRESENT ILLNESS: Pavithra was last seen by me 07/04/2016. At that time, it was felt that she had midline back pain related to facet arthritis and facet effusions. She pr eviously has had physical therapy. She has had some benefit from anti-inflammatory medicati ons. She was prescribed Meloxicam at our last visit. She also had facet steroid injectio ns requested. Unfortunately, her insurance does not cover facet steroid injections. She did not have req uested injections. She has been taking medication, Meloxicam. She takes it once daily before bedtime. She d enies any side effects to the medication. She indicates that the medication seems to reduc e her pain in the evening hours before she falls asleep. She indicates that she still has quite a bit of pain during the day. She does not feel like the medication helps out her d aytime pain. She reports the pain is located in the midline low back. Pain is constant in timing. Pain is dull in quality. Pain is constant in timing. Pain is a 6/10 or 7/10 on a numerical pain scale. Pain is increased with activity such as bending over the kitchen sink washing dishes. Pain is increased by prolonged sitting. Pain is reduced by heat, татьяна nging position and stretching. She had previous physical therapy nearly a year ago. She r eports that she does not do her home exercise program on a routine daily basis. She has ne margarito been treated with a home TENS unit. She denies pain traveling from the back into the leg. She denies numbness, tingling or weakness in either lower extremity. She denies inco ntinence of bowel or bladder. She denies saddle anesthesia. ALLERGIES: NO KNOWN DRUG ALLERGIES. CURRENT MEDICATIONS: Betamethasone cream. Vitamin D daily. Fish oil daily. Synthroid 75 mcg daily. Mobic 15 mg nightly. Multivitamin with minerals daily. Prilosec 2 times daily. REVIEW OF SYSTEMS: The patient denies nausea, vomiting, diarrhea, constipation, fever, ch ills, shortness of breath, skin breakdown or rash. She denies incontinence of bowel or ingrid dder. She denies saddle anesthesia. All other review of systems negative. PHYSICAL EXAMINATION: VITAL SIGNS: Heart rate 66, respiratory rate 16, blood pressure 127/83, weight 205 pounds , height 5 feet 2 inches. GENERAL: No acute distress. Alert to person, place, time and situation. HEENT: Extraocular muscles intact. Sclerae are clear. NECK: Normal range of motion. Spurling's test negative bilaterally. Axial loading test n egative. ABDOMEN: Obese, distended, positive for bowel sounds. BACK: Tenderness to palpation over lumbar facet joints. Lumbar facet loading test positi ve. No lumbar spasm or increased tone in paraspinal muscles noted. Seated straight leg ra ise negative bilaterally. Bear's test equivocal bilaterally. EXTREMITIES: Reveals no clubbing, cyanosis or edema in all 4 extremities. NEUROLOGIC: Exam demonstrates intact memory, concentration and speech. Cranial nerves int act. Sensation, strength, coordination, reflexes intact in both lower extremities. More s pecifically, there is intact sensation to monofilament testing in both lower extremities. Reflexes 2+ over patellar and Achilles of both lower extremities, 5/5 hip flexion, knee fl exion, knee extension, ankle dorsiflexion, ankle plantarflexion in both lower extremities. DATABASE: Review of laboratory data includes a metabolic profile 08/2016. This is unrema rkable. She has TSH from 08/2016 also within normal limits. She does not have recent C-re active protein, sedimentation rate, rheumatoid factor, anti-CCP, KELSY screen or HLA-B27. Lumbar MRI 11/2015 imaging personally reviewed by me demonstrates a lower lumbar facet art hropathy without disc pathology. There is trace facet effusions at L3-L4, L4-L5, and L5-S1 . ASSESSMENT: 1. Chronic midline low back pain, without sciatica, ICD-10 M54.5. 2. Lumbar facet arthri tis, ICD-10 M12.88. 3. Non-morbid obesity, ICD-10 E66.9. PLAN: The patient is advised to lose weight through diet and exercise. We discussed weigh t and its impact on back pain. We discussed the importance of continued activity and exerc ise for the management and treatment of facet arthritis. Current anti-inflammatory, meloxi cam, seems to be helping in the evening, but she reports reduced daytime benefit. I am go ing to have her split from Meloxicam dose to 7.5 mg twice daily with food. Hopefully, it w ill give her more even coverage throughout the day. I have represcribed physical therapy b ecause I would like her to be involved once again in an exercise program. I believe that she needs more guidance as to which exercises to do. She does not recall what her home exe rcise program should include. I also asked that physical therapy evaluate her for home TEN S unit, as this may be beneficial in management of her pain. To have facet joint effusions at age 35 is not impossible, but is also a bit unusual. It is possible that she may have underlying rheumatologic condition contributing to her facet arthritis and persisting pain. At this time, I am requesting laboratory tests to evaluate for underlying rheumatologic conditions. Laboratory tests requested include sedimentation rate, rheumatoid factor, HLA-B27, anti-CCP, C-reactive protein, and KELSY. If rheumatologic lab testing returns as positive, she will be referred to a cold press loader. In summary, she has been encouraged to lose weight. She has been prescribed quarry plug and feather driller apy. Meloxicam has been split to twice a day. Rheumatologic labs have been requested. She will return to clinic in 2 months' time to review management of symptoms. If laboratory t ests returned as positive, rheumatology consultation will be requested. Thank you for allowing me to be involved in the care of your patient. If you have any ques tions regarding the care of Ms. Schneider, please do not hesitate to call. ELOY MAYORGA JR, MD Dictated by ELOY MAYORGA JR, MD 09/18/2016 15:36:22 Transcribed on 09/19/2016 07:05:[address] donald# [id number] Confirmation #: [id number] cc: ZEN CHANEY MD Eloy Mayorga MD - 09/18/2016 3:23 PM PST This office note has been dictated. Report Confirmation# [id number] signed by Eloy Mayorga MD at 09/18/2016 3:36 PM PSTdocumented in t his encounter Plan of Treatment + + +--------+ + + | Name | Type | Priori | Associated Diagnoses | Order Schedule | | | | ty | | | + + +--------+ + + | External Ambulatory | Outpatient | Routin | Chronic midline | Ordered: 09/18/2016 | | referral to Physical | Referral | e | low back pain | | | Therapy | | | without sciatica | | | | | | Lumbar facet | | | | | | arthropathy | | + + +--------+ + + documented as of this encounter Results HLA B27 (09/18/2016 3:51 PM PST) + + + + + + | Component | Value | Ref Range | Performed | Pathologist | | | | | At | Signature | + + + + + + | HLA B27 | NegativeComment: Testing | NEG | REFERENCE | | | | Performed: [place] | | [facility] | | | | [facility] | | | | | | [place], [address], | | | | | | [place] [address] | | | | + + + + + + + + | Specimen | + + | Blood specimen | | (specimen) | + + + + + + + | Performing | Address | City/State/Zipcode | Phone Number | | Organization | | | | + + + + + | [facility] | [address] | [place] [address] | [phone] | + + + + + KELSY Screen, Qual, Reflex (09/18/2016 3:51 PM PST) + + + + + + | Component | Value | Ref Range | Performed | Pathologist | | | | | At | Signature | + + + + + + | KELSY Screen, | See CommentsComment: | NEG | REFERENCE | | | Qual | NegativeA multiplex | | [facility] | | | | screen for 11 | | | | | | autoantibodies (dsDNA, | | | | | | Sm, Ribosomal | | | | | | P,Chromatin, TRUST ADVISOR, Sm | | | | | | TRUST ADVISOR, Scl-70, Centromere | | | | | | B, SSA, SSB and Shena-1) | | | | | | wasperformed and no | | | | | | autoantibodies were | | | | | | detected.Testing | | | | | | Performed: [facility], [address] | | | | | | [place] | | | | | | [address] | | | | + + + + + + + + | Specimen | + + | Blood specimen | | (specimen) | + + + + + + + | Performing | Address | City/State/Zipcode | Phone Number | | Organization | | | | + + + + + | [facility] | [address] | [place] [address] | [phone] | + + + + + Cyclic Citrullinated Peptide Ab, IgG (09/18/2016 3:51 PM PST) + + + + + + | Component | Value | Ref Range | Performed | Pathologist | | | | | At | Signature | + + + + + + | Cyclic | <5Comment: Negative | <19.9 CU | REFERENCE | | | Citrullin | 0 to 19.9Positive | | [facility] | | | Peptide Ab | >19.9Testing | | | | | | Performed: [facility], [address] | | | | | | [address], [place] | | | | | | [address] | | | | + + + + + + + + | Specimen | + + | Blood specimen | | (specimen) | + + + + + + + | Performing | Address | City/State/Zipcode | Phone Number | | Organization | | | | + + + + + | [facility] | [address] | [place] [address] | [phone] | + + + + + Rheumatoid Factor, Quant (09/18/2016 3:51 PM PST) + + + + + + | Component | Value | Ref Range | Performed | Pathologist | | | | | At | Signature | + + + + + + | RHEUMATOID | <20Comment: Testing | <20 IU/mL | REFERENCE | | | FACTOR | Performed: [facility], [address] | | [facility] | | | | [address], [place] | | | | | | [address] | | | | + + + + + + + + | Specimen | + + | Blood specimen | | (specimen) | + + + + + + + | Performing | Address | City/State/Zipcode | Phone Number | | Organization | | | | + + + + + | [facility] | [address] | [place] [address] | [phone] | + + + + + Sedimentation Rate (09/18/2016 3:51 PM PST) + +-------+ + + + | Component | Value | Ref Range | Performed | Pathologist | | | | | At | Signature | + +-------+ + + + | Erythrocyte | 8 | <20 mm/hr | [facility] | | | | [facility] | | | [facility] | | | [facility] | | | on Rate | | | CENTER - | | | | | | LABORATORY | | + +-------+ + + + + + | Specimen | + + | Blood | + + + + + + + | Performing | Address | City/State/Zipcode | Phone Number | | Organization | | | | + + + + + | [facility] | [address] | [place] | [phone] | | [facility] | | [address] | | | - LABORATORY | | | | + + + + + C-Reactive Protein (09/18/2016 3:51 PM PST) + +-------+ + + + | Component | Value | Ref Range | Performed | Pathologist | | | | | At | Signature | + +-------+ + + + | CRP | 0.61 | <8.00 mg/L | [facility] | | | | | | [facility] | | | | | | [...] ST. | [address] | [place], [place] | [phone] | | [facility] | | [address] | | | - LABORATORY | | | | + + + + + documented in this encounter Visit Diagnoses + + | Diagnosis | + + | Chronic midline low back pain without sciatica - Primary | + + | Lumbar facet arthropathy Lumbosacral spondylosis without myelopathy | + + | Non morbid obesity, unspecified obesity type | + + documented in this encounter
--- OUTSIDE RECORDS SUMMARY | ~2020-05-24 | XMS | Encounter Summary ---
Demographics + + + | Address | [address] | | | [place] [address] | + + + | Home Phone | | + + + | Preferred Language | Unknown | + + + | Marital Status | Single | + + + | Restoration Affiliation | 1041 | + + + | Race | Unknown | + + + | Ethnic Group | or | + + + Author + + + | Author | [facility] | | | and [place] | + + + | Organization | [facility] | | | and [place] [...] [place], [place] | | | | | [address] | | + + + + + | Amy Schneider | ECON | [address] | | | | | [place], [place] | | | | | [address] | | + + + + + | Alisha Schneider | ECON | Unknown | | + + + + + Care Team Providers + +------+ + | Care Grazing Examiner Name | Role | Phone | + +------+ + | Jet Chaney MD | PCP | | + +------+ + Encounter Details +--------+ + + + + | Date | Type | Department | Care Team | Description | +--------+ + + + + | 10/17/ | Abstract | [facility] | Jet Chaney, | | | 2016 | | [facility] | [address] | | | | | [address] | [place] | | | | | [place] | [address] | | | | | [address] | | | | | | [phone] | | | +--------+ + + + [...] +--------+ + + + | EXTERNAL LAB: [facility] | Routin | 11/02/2014 | | Results for this | | SMEAR | e | | | procedure are in the | | | | | | results section. | + +--------+ + + + documented in this encounter Results External Lab: PAP Smear (11/02/2014) + + + + + + | Component | Value | Ref Range | Performed | Pathologist | | | | | At | Signature | + + + + + + | Pap Smear, | No evidence of | | EXTERNAL | | | External | intraepithelial lesion | | LAB | | | | or malignancyComment: | | | | | | HPV negative | | | | + + + + + + + + | Resulting Agency Comment | + + | [facility] | + + + +---------+ + + | Performing | Address | City/State/Zipcode | Phone Number | | Organization | | | | + +---------+ + + | EXTERNAL LAB | | | | + +---------+ + + documented in this encounter Visit Diagnoses Not on filedocumented in this encounter"
--- OUTSIDE RECORDS SUMMARY | ~2020-05-24 | XMS | Encounter Summary ---
Demographics + + + | Address | [address] | | | [place] [address] | + + + | Home Phone | | + + + | Preferred Language | Unknown | + + + | Marital Status | Single | + + + | Religion Affiliation | 1041 | + + + | Race | Unknown | + + + | Ethnic Group | or | + + + Author + + + | Author | [facility] | | | and [place] | + + + | Organization | [facility] | | | and [...] [place], [place] | | | | | [address] | | + + + + + | Amy Schneider | ECON | [address] | | | | | [place], [place] | | | | | [address] | | + + + + + | Alisha Schneider | ECON | Unknown | | + + + + + Care Team Providers + +------+ + | Care Shank Skinner Name | Role | Phone | + +------+ + | Jet Chaney MD | PCP | | + +------+ + Reason for Visit + + + | Reason | Comments | + + + | ED Follow-up | 12/22/18 for left flank pain. Rx for Keflex. | + + + Encounter Details +--------+---------+ + + + | Date | Type | Department | Care Team | Description | +--------+---------+ + + + | 01/02/ | Office | [facility] | [facility], | Kidney stone | | 2019 | Visit | [facility] [place] | [place] [employer] [address] | (Primary Dx); | | | | [address] | [place], [place] | Hydronephrosis of | | | | [place], [place] | [address] | left kidney; | | | | [address] | | Abdominal pain, | | | | [phone] | | generalized; Urinary | | | | | | tract infection | | | | | | without hematuria, | | | | | | site unspecified | +--------+---------+ + + + Social History [...] + + + | Blood Pressure | 136/80 | 01/02/2019 10:30 AM | | | | | PDT | | + + + + + | Pulse | 93 | 01/02/2019 10:30 AM | | | | | PDT | | + + + + + | Temperature | 37 C (98.6 F) | 01/02/2019 10:30 AM | | | | | PDT | | + + + + + | Respiratory Rate | 18 | 01/02/2019 10:30 AM | | | | | PDT | | + + + + + | Oxygen Saturation | 99% | 01/02/2019 10:30 AM | | | | | PDT | | + + + + + | Inhaled Oxygen | - | - | | | Concentration | | | | + + + + + | Weight | 96.7 kg (213 lb 3 | 01/02/2019 10:30 AM | | | | oz) | PDT | | + + + + + | Height | - | - | | + + + + + | Body Mass Index | 38.99 | 12/22/2018 7:29 PM | | | | | PDT | | + + + + + documented in this encounter Patient Instructions Patient Instructions Med Hu ARNP - 01/02/2019 10:15 AM [employer] LearningGet stone collection kit . Go to [facility] for xray of abdomen. Call to schedule kidney ultrasound for sometime around 01/21/19. Preventing Kidney Stones If you ve had a kidney stone, you may worry that you ll have another. Removing or passi ng your stone doesn t prevent future stones. But with your healthcare provider s help, y ou can reduce your risk of forming new stones. Follow up with your healthcare provider to he lp find new stones. You may need follow-up every 3 months to a year for a lifetime. Drink lots of water Staying well-hydrated is the best way to reduce your risk of future stones. Drink 812-oun ce glasses of water daily. Have 2 with each meal and 2 between meals. Try keeping a pitcher of water nearby during the day and at night. Follow your prescribed diet Yourhealthcare providerwill tell you which foods contain the chemicals you should avoid . Yourhealthcare providermay also suggest talking to a dietitian. He or she can help you plan meals you ll enjoy. These meals won t put you at risk for future stones. You may b e told to limit certain foods, depending on which type of stones you ve had. You should li riri the amount of salt in your food to about 2 grams a day. This will help prevent most type s of kidney stones.Make sure you get an adequate amount of calcium in your diet. For calcium oxalate stones:Limit animal protein, such as meat, eggs, and fish.Limit gra pefruit juice and alcohol.Limit high-oxalate foods (such as cola, tea, chocolate, spinach, rhubarb, wheat bran, and peanuts). For uric acid stones: Limit high-purine foods, such as mushrooms, peas, beans, anchovies, m eat, poultry, shellfish, and organ meats. These foods increase uric acid production. For cystine stones: Limit high-methionine foods (fish is the most common,but eggs and marcela ts, also).These foods increase production of cystine. Date Last Reviewed: 10/17/201619992700-4832 [employer]. [address] [place] [address], [place] [address]. All righ ts reserved. This information is not intended as a substitute for professional medical care. Always follow your healthcare professional's instructions. documented in this encounter Progress Notes Med Hu ARNP - 01/02/2019 10:15 AM PDTFormatting of this note might be different fr om the original. Baudilio Schneider is a 38 y.o. female and patient of Jet Chaney MD Chief Complaint: ED Follow-up (12/22/18 for left flank pain. Rx for Keflex. ) HPI Went to the ED 12/22/18 for left flank pain and pain with urination. She was diagnosed with k idney stone and uti. Blood work showed elevated wbc count, normal kidney function, electroly cruz and blood glucose. CT renal stone wo contrast showed mild obstruction of left kidney, th ought to be related to 3 mm calcification in bladder. Treated with one dose of keflex in the ED and completed 7 day course of keflex. She took as directed. She is feeling much better, though still have having some pains now of her right abdomen, b ut can not further elaborate. Opens and closes her right fist. She's not sure if she passed the stone or not and would like to know. No pain with urination or hematuria. No fevers or c hills. No nausea, vomiting, diarrhea. Reports she drinks about 16-24 ounces water daily. Reports constipation earlier in the week but hat has resolved. Last bm was yesterday, prior to that it was a few days. EXAM: CT RENAL STONE WO CONTRAST dated 12/22/2018 9:15 PM HISTORY:Abdominal pain. Flank pain. Dysuria. Comparison: 02/24/2018. TECHNIQUE: Imaging is performed from the mid liver through the pubic symphysis without contrast. DOSE: DLP 440.55 mGy-cm FINDINGS: LUNG BASES: The visible lower lungs are clear. LIVER: The visible unenhanced liver is unremarkable. GALLBLADDER: The gallbladder is surgically absent. The intrahepatic and extrahepatic biliary ducts are appropriate given the postsurgical state. SPLEEN: The visible unenhanced spleen is unremarkable. There is a small splenule. PANCREAS: The unenhanced pancreas is unremarkable. No peripancreatic inflammatory change. ADRENALS: No adrenal enlargement. No adrenal masses. KIDNEYS: There is left hydronephrosis and mild left hydroureter. Mild perinephric stranding. There is a calcification that appears to be in the very inferior posterior dependent portion of the bladder, slightly left-sided. This measures 3 mm. There are 2 intrarenal nephroliths on the kidney measuring up to 2 mm. There is a 2 mm nephrolith in the inferior right kidney. No right hydronephrosis. BOWEL: The gastrointestinal tract is unremarkable. There is no evidence for gastrointestinal tract obstruction. There is no evidence for appendicitis. There is no significant diverticular disease. VASCULATURE AND LYMPH NODES: There is no aneurysmal dilatation of the abdominal aorta. There is no pelvic or abdominal lymphadenopathy. BLADDER: The bladder is decompressed and not well evaluated. UTERUS AND ADNEXA:There is an intrauterine device covered by myometrium. There are no adnexal masses. BONES: There are no acute osseous abnormalities. There are no lytic or blastic bone lesions. OTHER: There is no free fluid. There is no free air. There is a small fat-containing umbilical hernia. IMPRESSION - Findings consistent with mild obstruction of the left kidney. This is felt to be secondary to a recently passed 3 mm calcification in the dependent portion of the bladder. Currently, no ureteroliths. Bilateral intrarenal nephroliths. Dictated and Signed by: Hill Duque MD Electronically signed: 12/22/2018 9:26 PM PREVENTIVE CARE/PRIOR VISITS Any recommendations from Health Maintenance: Preventative Services TOPIC LAST DONE NEXT DUE Vaccine: Influenza 07/08/2018 Cervical Cancer Screening (Pap) 01/27/2018 01/27/2021 Vaccine: Dtap/Tdap/Td 02/03/2012 02/02/2022 Vaccine: Pneumococcal 19-64 (Ppsv23 Only) Medium Risk 04/19/2016 Immunization History Administered Date(s) Administered INFLUENZA PF 18 Y OR >,TRIVALENT RECOMBINANT 06/07/2012 INFLUENZA PF 4Y OR >,QUAD DERIVED FROM TISS-CULT 09/18/2017 INFLUENZA PF QUAD(PED/ADOL/ADULT),PSKT or VIAL 06/24/2014, 05/31/2016, 07/08/2018 INFLUENZA PF TRIVALENT(PED/ADOL/ADULT), PSKT 07/17/2013 INFLUENZA, UNSPECIFIED FORMULATION 07/17/2015 PNEUMOCOCCAL POLYSACCHARIDE 23-VALENT (PPSV23) 04/19/2016 TDAP, (ADOL/ADULT) 02/03/2012 Allergies Allergen Reactions Hydrocodone Hives and Shortness Of Breath Medications: Patient Reported Taking Dosage bisacodyl (BISACODYL) 5 mg EC tablet (Taking) Take 1 tablet by mouth Daily as needed for Constipation. Number of times this order has been changed since signin Order Audit Underwood Cholecalciferol (VITAMIN D3) 5000 UNITS CAPS (Taking) Take 5,000 Units by mouth Daily. Number of times this order has been changed since signin Order Audit Underwood docusate sodium (COLACE) 100 mg capsule (Taking) Take 1 capsule by mouth Daily. To help c onstipation Number of times this order has been changed since signin Order Audit Underwood fish oil 1,000 mg capsule (Taking) Take 2,000 mg by mouth Daily. Number of times this order has been changed since signin Order Audit Underwood ibuprofen (ADVIL,MOTRIN) 600 MG tablet (Taking) Take 600 mg by mouth as needed. levothyroxine (SYNTHROID) 100 mcg tablet (Taking) Take 100 mcg by mouth every morning (be fore breakfast). levothyroxine (SYNTHROID) 88 mcg tablet (Taking) Take 88 mcg by mouth every morning (befo re breakfast). Number of times this order has been changed since signin Order Audit Underwood liothyronine (CYTOMEL) 5 mcg tablet (Taking) Take 5 mcg by mouth 2 times daily. lubiprostone (AMITIZA) 8 mcg capsule (Taking) Take 1 capsule by mouth 2 times daily (with breakfast & dinner). Number of times this order has been changed since signin Order Audit Underwood meloxicam (MOBIC) 7.5 mg tablet (Taking) Take 7.5 mg by mouth. Multiple Vitamins-Minerals (WOMENS ONE DAILY PO) (Taking) Take 1 tablet by mouth Daily. Number of times this order has been changed since signin Order Audit Underwood nortriptyline (PAMELOR) 10 MG capsule (Taking) 1 capsule by mouth at bedtime for 7 days; then 2 at bedtime for 7 days; then 3 at bedtime for 7 days; then 4 at bedtime Number of times this order has been changed since signin Order Audit Underwood pantoprazole (PROTONIX) 40 mg tablet (Taking) Take 1 tablet by mouth every morning (befor e breakfast). To help stomach inflammation Number of times this order has been changed since signin Order Audit Underwood terbinafine (LAMISIL) 250 MG tablet (Taking) Take 1 tablet by mouth Daily for 90 days. Number of times this order has been changed since signin Order Audit Underwood Past Medical History She has a past medical history of Allergy, Cervical radicular pain, Chest wall pain, Chroni c abdominal pain, Chronic midline low back pain without sciatica, Depression, Dysplasia of c ervix, low grade (CHRISTIAN 1) (08/15/2012), Gallbladder disease, GERD (gastroesophageal reflux di sease), Hand numbness, Hypothyroid, Insomnia, Lower back pain, Nephrolithiasis (03/03/2018), Obesity, Prediabetes, Seasonal allergies, Stress, Thyroid disorder, Tobacco abuse (02/23/2014 ), and Vitamin D deficiency. Past Surgical History She has a past surgical history that includes Tonsillectomy (11/01/2009); Cholecystectomy ( 2000); Endoscopy (09/21/2013); Upper gastrointestinal endoscopy (N/A, 08/28/2016); intrauter ine device insertion (07/12/2015); and Upper gastrointestinal endoscopy (N/A, 08/05/2018). Family History: Her family history includes Colon cancer in her paternal uncle; Coronary artery disease (ag e of onset: 64) in her father; Depression in her sister; Diabetes in her father; High blood pressure in her father and sister; Kidney disease in her father and paternal grandfather; No known problems in her maternal grandfather, maternal grandmother, mother, and paternal gran dmother. Social History: Social History Socioeconomic History Marital status: Single Spouse name: Luke Number of children: 5 Years of education: Not on file Highest education level: Not on file Occupational History Employer: [employer] Comment: [employer] in [place] Tobacco Use Smoking status: Current Some Day Smoker Packs/day: 0.10 Years: 5.00 Pack years: 0.50 Types: Cigarettes Smokeless tobacco: Never Used Tobacco comment: 1-2 cigs daily Substance and Sexual Activity Alcohol use: No Alcohol/week: 0.0 oz Drug use: No Sexual activity: Yes Partners: Male Comment: Prince IUD 09/2015 Social History Narrative Marital Status: . 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 Objective: Vitals: 01/02/19 1030 BP: 136/80 Pulse: 93 Resp: 18 Temp: 37 C (98.6 F) TempSrc: Temporal SpO2: 99% Weight: 96.7 kg (213 lb 3 oz) Physical Exam Constitutional: She is oriented to person, place, and time. She appears well-developed and well-nourished. No distress. Very pleasant, obese HENT: Head: Normocephalic and atraumatic. Eyes: Conjunctivae are normal. Right eye exhibits no discharge. Left eye exhibits no discha rge. Neck: Neck supple. No thyromegaly present. Cardiovascular: Normal rate, regular rhythm and normal heart sounds. No murmur heard. Pulmonary/Chest: Effort normal and breath sounds normal. No respiratory distress. She has n o wheezes. She has no rales. Abdominal: Soft. Bowel sounds are normal. She exhibits no distension and no mass. There is no tenderness. There is no rebound and no guarding. No suprapubic or flank tenderness Musculoskeletal: She exhibits no edema. Lymphadenopathy: She has no cervical adenopathy. Neurological: She is alert and oriented to person, place, and time. Coordination normal. Skin: Skin is warm and dry. She is not diaphoretic. Psychiatric: She has a normal mood and affect. Her behavior is normal. Nursing note and vitals reviewed. Results for orders placed or performed in visit on 01/02/19 Urinalysis with Microscopic with Culture if Indicated Result Value Ref Range Color Yellow Light Yellow, Yellow, Straw Clarity Hazy (A) Clear pH, Urine 6.0 5.0 - 8.0 Specific Maria Stein 1.026 1.001 - 1.030 Protein, Urine 30 mg/dL (A) Negative Blood, Urine Negative Negative Glucose, Urine 50 mg/dL (A) Negative Ketones, Urine Negative Negative Bilirubin, Urine Negative Negative Nitrite, Urine Negative Negative Leukocyte Esterase, Urine Negative Negative Urobilinogen, Urine Negative 0.2 mg/dL, 1.0 mg/dL, Negative WBC UA 0-2 0 - 2 /HPF RBC UA 0-2 0 - 2 /HPF SQUAMOUS EPITHELIAL UA 10-15 (A) 0 - 2 /LPF BACTERIA UA Negative Negative /HPF MUCUS UA Present (A) Negative /LPF URINE COMMENT Urine Culture Not Indicated POCT Urinalysis Dipstick Automated Result Value Ref Range Color, UA, POC Nellie (A) Yellow, Light Yellow Clarity, UA, POC Cloudy Glucose, UA, POC 250 mg/dL (A) Negative Bilirubin, UA, POC Negative Negative Ketones, UA, POC Trace (A) Negative, 100 mg/dL Specific Maria Stein, UA, POC 1.025 1.001 - 1.030 Blood, UA, POC Negative Negative pH, UA, POC 6.5 5.0, 6.0, 7.0, 8.0, 5.5, 6.5, 7.5 Protein, UA, POC 100 mg/dL (A) Negative Urobilinogen, UA, POC 0.2 0.2, Negative, Normal, < 0.2 mg/dL, 1 mg/dL, < 0.2 E.U./dl, 1.0 E.U./dL, 0.2 mg/dL Nitrite, UA, POC Negative Negative Leukocyte Esterase, UA, POC Negative Negative Reducing Substances, Urine Ictotest Negative Remark Assessment: 1. Kidney stone XR Abdomen AP Calculi Analysis Urinalysis with Microscopic with Culture if Indicated US Renal Complete 2. Hydronephrosis of left kidney XR Abdomen AP US Renal Complete 3. Abdominal pain, generalized XR Abdomen AP POCT Urinalysis Dipstick Automated 4. Urinary tract infection without hematuria, site unspecified Plans: 1. Kidney stone 2. Hydronephrosis of left kidney 3. Abdominal pain, generalized 4. Urinary tract infection without hematuria, site unspecified Symptoms significantly improved. Today's UA does not suggest infection. Normal vital signs. Advised to drink enough water so that she is urinating 2 L daily. Stone analysis ordered, return at earliest convenience. Reviewed dietary instructions and warning signs and when to seek medical attention. Abdominal xr and u/s in 2-3 weeks. - XR Abdomen AP; Future - Calculi Analysis; Future - POCT Urinalysis Dipstick Automated Follow-up: Return if symptoms worsen or fail to improve. Portions of this report were transcribed using voice recognition software. Every effort wa s made to ensure accuracy; however, inadvertent computerized flooring installer errors may be pre sent. 25 minute visit > 50% counseling regarding condition, options for treatment, and possible risks. documented in this e ncounter Plan of Treatment + + +--------+ + + | Name | Type | Priori | Associated Diagnoses | Order Schedule | | | | ty | | | + + +--------+ + + | Calculi Analysis | Pathology | Routin | Kidney stone | 1 Occurrences | | | and | e | | starting 01/02/2019 | | | Cytology | | | until 01/03/2020 | + + +--------+ + + documented as of this encounter Procedures + +--------+ + + + | Procedure Name | Priori | Date/Time | Associated Diagnosis | Comments | | | ty | | | | + +--------+ + + + | POCT URINALYSIS, | Routin | 01/02/2019 | Abdominal pain, | Results for this | | AUTO WITH CONF | e | 11:38 AM | generalized | procedure are in the | | | | PDT | | results section. | + +--------+ + + + | URINALYSIS WITH | Routin | 01/02/2019 | Kidney stone | Results for this | | MICROSCOPIC WITH | e | 10:15 AM | | procedure are in the | | CULTURE IF INDICATED | | PDT | | results section. [...] | Procedure Note | + + | Kratnhi, Rad Results In - 01/22/2019 7:11 PM [...] | | | + +---------+ + + XR Abdomen AP (01/10/2019 10:15 AM PDT) + + | Specimen | + + | | + + + + + | Narrative | Performed At | + + + | XR ABDOMEN 1 VW 01/10/2019 10:15 AM HISTORY: kidney stones on | [facility] | | recent CT. COMPARISON: Multiple priors. FINDINGS: Tiny | | | calcified stones are present of the bilateral kidneys. There is a | | | nonobstructive bowel gas pattern with no definite evidence for free | | | air. Moderate stool retention is seen. There are no acute osseous | | | abnormalities. There is an intrauterine device in the pelvis. | | | IMPRESSION - Redemonstration of tiny calcified stones of bilateral | | | kidneys. Dictated and Signed by: Jose Cherry MD | | | Electronically signed: 01/10/2019 8:30 PM | | + + + + + | Procedure Note | + + | Kranthi, Abram Results In - 01/10/2019 8:33 PM PDT XR ABDOMEN 1 VW 01/10/2019 10:15 AM | | | | HISTORY: kidney stones on recent CT. | | | | COMPARISON: Multiple priors. | | | | FINDINGS: | | Tiny calcified stones are present of the bilateral kidneys. There is a | | nonobstructive bowel gas pattern with no definite evidence for free air. | | Moderate stool retention is seen. There are no acute osseous abnormalities. | | There is an intrauterine device in the pelvis. | | | | IMPRESSION - | | Redemonstration of tiny calcified stones of bilateral kidneys. | | | | Dictated and Signed by: Jose Cherry MD | | Electronically signed: 01/10/2019 8:30 PM | + + + +---------+ + + | Performing | Address | [facility] | Phone Number | | Organization | | | | + +---------+ + + | [facility] | | | | + +---------+ + + POCT Urinalysis Dipstick Automated (01/02/2019 11:38 AM PDT) + + + + + + | Component | Value | Ref Range | Performed | Pathologist | | | | | At | Signature | + + + + + + | Color, UA, | Nellie (A) | Yellow, Light | | | | POC | | Yellow | | | + + + + + + | Clarity, | Cloudy | | | | | UA, POC | | | | | + + + + + + | Glucose, | 250 mg/dL (A) | Negative | | | | UA, POC | | | | | + + + + + + | Bilirubin, | Negative | Negative | | | | UA, POC | | | | | + + + + + + | Ketones, | Trace (A) | Negative, 100 | | | | UA, POC | | mg/dL | | | + + + + + + | Specific | 1.025 | 1.001 - 1.030 | | | | Maria Stein, | | | | | | UA, POC | | | | | + + + + + + | Blood, UA, | Negative | Negative | | | | POC | | | | | + + + + + + | pH, UA, POC | 6.5 | 5.0, 6.0, 7.0, | | | | | | 8.0, 5.5, 6.5, | | | | | | 7.5 | | | + + + + + + | Protein, | 100 mg/dL (A) | Negative | | | | UA, POC | | | | | + + + + + + | Urobilinoge | 0.2 | 0.2, Negative, | | | | n, UA, POC | | Normal, < 0.2 | | | | | | mg/dL, 1 mg/dL, | | | | | | < 0.2 E.U./dl, | | | | | | 1.0 E.U./dL, | | | | | | 0.2 mg/dL | | | + + + + + + | Nitrite, | Negative | Negative | | | | UA, POC | | | | | + + + + + + | Leukocyte | Negative | Negative | | | | Esterase, | | | | | | UA, POC | | | | | + + + + + + | Reducing | | | | | | Substances, | | | | | | Urine | | | | | + + + + + + | Bilirubin | | Negative | | | | Confirmatio | | | | | | n by | | | | | | Ictotest, | | | | | | Urine | | | | | + + + + + + | Remark | | | | | + + + + + + + + | Specimen | + + | Urine | + + Urinalysis with Microscopic with Culture if Indicated (01/02/2019 10:15 AM PDT) + + + + + + | Component | Value | Ref Range | Performed | Pathologist | | | | | At | Signature | + + + + + + | Color, | Yellow | Light Yellow, | [facility] | | | Urine | | Yellow, Straw | [facility] | | | | [...] + + + + | Specific | 1.026 | 1.001 - 1.030 | [facility] | | | Maria Stein, | | | [facility] | | | Urine | | | MEDICAL | | | | | | CENTER - | | | | | | LABORATORY | | + + + + + + | Protein, | 30 mg/dL (A) | Negative | [facility] | | [...] + + + + | Glucose, | 50 mg/dL (A) | Negative | [facility] | | [...] + + + + | Urobilinoge | Negative | 0.2 mg/dL, 1.0 | [facility] | | | n, Urine | | mg/dL, Negative | [facility] | | | | | | MEDICAL | | | | | | CENTER - | | | | | | LABORATORY | | + + + + + + | White Blood | 0-2 | 0 - 2 [...] + + + + | Squamous | 10-15 (A) | 0 - 2 /LPF | [facility] | | | Epithelial | | | [facility] | | | Cells, | | | MEDICAL | | | Urine | | | CENTER - | | | | | | LABORATORY | | + + + + + + | Bacteria, | Negative | Negative /HPF | [facility] | | | Urine | | | [facility] | | | | | | MEDICAL | | | | | | CENTER - | | | | | | LABORATORY | | + + + + + + | Mucus, | Present (A) | Negative /LPF | [facility] | | | Urine | | | [facility] | | | | | | MEDICAL | | | | | | CENTER - | | | | | | LABORATORY | | + + + + + + | Urine | Urine Culture Not | | [facility] | | | Comment | Indicated | | [facility] | | | | | | MEDICAL | | | | | | CENTER - | | | | | | LABORATORY | | + + + + + + + + | Specimen | + + | Urine - Urine | | specimen obtained by | | clean catch | | procedure (specimen) | + + + + + + + | Performing | Address | City/State/Zipcode | Phone Number | | Organization | | | | + + + + + | [facility] | [address] | [place] | [phone] | | [facility] | | [phone] | | | - LABORATORY | | | | + + + + + documented in this encounter Visit Diagnoses + + | Diagnosis | + + | Kidney stone - Primary Calculus of kidney | + + | Hydronephrosis of left kidney Hydronephrosis | + + | Abdominal pain, generalized | + + | Urinary tract infection without hematuria, site unspecified | + + documented in this encounter"
--- OUTSIDE RECORDS SUMMARY | ~2020-05-24 | XMS | Encounter Summary ---
Demographics + + + | Address | [address] | | | [place] [address] | + + + | Home Phone [...] | Organization | [facility] [...] [place], [place] | | | | | [address] | | + + + + + | Amy Schneider | ECON | [address] | | | | | [place], [place] | | | | | [address] | | + + + + + | Alisha Schneider | ECON | Unknown | | + + + + + Care Team Providers + +------+ + | Care Quality Assurance Qa Lab Technician Name | Role | Phone | + +------+ + | Jet Chaney MD | PCP | | + +------+ + Encounter Details +--------+ + + + + | Date | Type | Department | Care Team | Description | +--------+ + + + + | 11/23/ | Hospital | [facility] | Eloy Moore, | Chronic midline low | | 2018 | Encounter | MED CTR XRAY [address] | [address] | back pain without | | | | [place] | [place] | sciatica; Chronic | | | | [place] [address] | [id number] | left SI joint pain | | | | [phone] | | | +--------+ + + + [...] + + | meloxicam (MOBIC) | Take 1 tablet by | 60 | 5 | 09/17/19 | | | 7.5 mg tablet | mouth 2 times daily. | tablet | | 18 | 8 | | | With food | | | | | + + + +---------+ + + | Multiple | Take 1 tablet by | | 0 | | | | Vitamins-Minerals | mouth Daily. | | | | 0 | | (WOMENS ONE DAILY | | | | | | | PO) | | | | | | + + + +---------+ + + | naproxen | Take 1 one tablet | 30 | 0 | 10/30/19 | | | (NAPROSYN) 500 mg | with food twice | tablet | | 18 | 8 | | tabletIndications: | daily for 5 days, | | | | | | Whiplash injury to | then as needed for | | | | | | neck, initial | pain. | | | | | | encounter | | | | | | + [...] capsule by | 90 | 1 | 12/07/19 | | | (PRILOSEC) 20 mg | mouth every morning | capsule | | 17 | 8 | | capsuleIndications: | (before breakfast). | | | | | | Gastritis, presence | To help abdominal | | | | | | of bleeding | pain | | | | | | unspecified, | | | | | | | unspecified | | | | | | | chronicity, | | | | | | | unspecified | | | | | | | gastritis type | | | | | | + + + +---------+ + + | tiZANidine | Take 0.5-1 tablets | 30 | 0 | 10/30/19 | | | (ZANAFLEX) 4 mg | by mouth every 8 | tablet | | 18 | 8 | | tabletIndications: | hours as needed | | | | | | Whiplash injury to | (Neck and back | | | | | | neck, initial | pain). | | | | | | encounter | | | | | | + [...] + +--------+ + + + | XR SACROILIAC JOINTS | Routin | 11/23/2017 | Chronic midline | Results for this | | COMPLETE | e | 2:03 PM | low back pain | procedure are in the | | | | PST | without sciatica | results section. | | | | | Chronic left SI | | | | | | joint pain | | + +--------+ + + + documented in this encounter Results XR Sacroiliac Joints Complete (11/23/2017 2:03 PM PST) + + | Specimen | + + | | + + + + + | Narrative | Performed At | + + + | EXAM:XR SACROILIAC JOINTS COMPLETE CLINICAL HISTORY: left SI | [facility] | | pain COMPARISON: None. FINDINGS: There are 4 views of the | | | sacroiliac joints. No diastases of the sacroiliac joints. The | | | sacral foraminal lines are intact. No sclerosis or irregularity of | | | the sacroiliac joints. Mild irregularity at the pubic symphysis. | | | Normal mineralization. There is an intrauterine device projecting | | | in the pelvis. IMPRESSION - Unremarkable radiographic | | | evaluation of the sacroiliac joints. Dictated and Signed by: Hill Duque MD Electronically signed: 11/23/2017 8:28 PM | | + + + + + | Procedure Note | + + | Abram Crisostomo Results In - 11/23/2017 8:31 PM PST EXAM:XR SACROILIAC JOINTS COMPLETE | | | | CLINICAL HISTORY: left SI pain | | | | COMPARISON: None. | | | | FINDINGS: There are 4 views of the sacroiliac joints. | | | | No diastases of the sacroiliac joints. The sacral foraminal lines are intact. | | No sclerosis or irregularity of the sacroiliac joints. Mild irregularity at the | | pubic symphysis. Normal mineralization. There is an intrauterine device | | projecting in the pelvis. | | | | IMPRESSION - | | | | Unremarkable radiographic evaluation of the sacroiliac joints. | | | | Dictated and Signed by: Hill Duque MD | | Electronically signed: 11/23/2017 8:28 PM | + + + +---------+ + [...] pain without sciatica | + + | Chronic left SI joint pain Disorders of sacrum | + + documented in this encounter"
--- OUTSIDE RECORDS SUMMARY | ~2020-05-24 | XMS | Encounter Summary ---
Demographics + + + | Address | [facility] [address] | | | [place] [address] | + + + | Home Phone [...] Organization | [facility] | | | and [place] | [...] [place], [place] | | | | | [address] | | + + + + + | Amy Schneider | ECON | [address] | | | | | [place], [place] | | | | | [address] | | + + + + + | Alisha Schneider | ECON | Unknown | | + + + + + Care Team Providers + +------+ + | Care Brake Tester Name | Role | Phone | + +------+ + | Jet Chaney MD | PCP | | + +------+ + Reason for Visit + + + | Reason | Comments | + + + | Diabetes | follow up | + + + Encounter Details +--------+---------+ + + + | Date | Type | Department | Care Team | Description | +--------+---------+ + + + | 10/03/ | Office | [facility] | Jet Chaney, | RUQ pain (Primary | | 2013 | Visit | [facility] | [address] | Dx); Elevated liver | | | | [address] | [place] | enzymes; G E R D; | | | | [place] | [address] | Dysplasia of cervix, | | | | [address] | | low grade (ROYER 1); | | | | [phone] | | Molluscum | | | | [...] + + + | Blood Pressure | 124/80 | 10/03/2012 4:31 PM | | | | | PST | | + + + + + | Pulse | 73 | 10/03/2012 4:31 PM | | | | | PST | | + + + + + | Temperature | - | - | | + + + + + | Respiratory Rate | 16 | 10/03/2012 4:31 PM | | | | | PST | | + + + + + | Oxygen Saturation | 97% | 10/03/2012 4:31 PM | | | | | PST | | + + + + + | Inhaled Oxygen | - | - | | | Concentration | | | | + + + + + | Weight | 99.8 kg (220 lb) | 10/03/2012 4:31 PM | | | | | PST | | + + + + + | Height | - | - | | + + + + + | Body Mass Index | 38.97 | 07/04/2012 10:29 AM | | | | | PDT | | + + + + + documented in this encounter Patient Instructions Patient Instructions Jet Chaney MD - 10/03/2012 4:54 PM PST Please schedule an ultrasound of your gallbladder and liver. BP 124/80 | Pulse 73 | Resp 16 | Wt 99.791 kg (220 lb) | SpO2 97% | ? No documented in this encounter Progress Notes Jet Chaney MD - 10/03/2012 4:45 PM PSTFormatting of this note might be different fr om the original. Subjective: Patient ID: Baudilio Schneider is a 32 y.o. female. HPI She has intermittent right upper quadrant pain. Worse after eating. At its worse it rates 10/10. She estimates severe pain happens once per week. She has started taking ranitidine without relief of symptoms. No fever, jaundice, paulo colored stools. No Tylenol. The papules bother her and she would like them frozen today. Patient's medications, allergies, past medical, surgical, social and family histories were reviewed and updated as appropriate. Review of Systems BP 124/80 | Pulse 73 | Resp 16 | Wt 99.791 kg (220 lb) | SpO2 97% | ? No Objective: Physical Exam Constitutional: Very pleasant, well developed, NAD Eyes: No scleral icterus. Cardiovascular: Normal rate, regular rhythm, normal heart sounds and intact distal pulses. Exam reveals no gallop and no friction rub. No murmur heard. Pulmonary/Chest: Breath sounds normal. No respiratory distress. She has no wheezes. She has no rales. Abdominal: Soft. She exhibits no distension and no mass. There is Tenderness: Minimal RUQ t enderness without rebound or guarding.. Skin: 2 small flesh colored papules next to left eye brow and bridge of nose Assessment: Baudilio was seen today for diabetes. Diagnoses and associated orders for this visit: Ruq pain: Possibly biliary colic. No signs of acute cholecystitis. - US Abdomen Limited; Future Elevated liver enzymes: Mildly elevated - US Abdomen Limited; Future - HCV panel G e r d - Continue ranitidine Molluscum: - 3 Freeze thaw cycles with liquid nitrogen Dysplasia of cervix, low grade (royer 1) - Has pap scheduled Molluscum Prashanth Chaney MD documented in this e ncounter Plan of Treatment Not on filedocumented as of this encounter Results US Abdomen Limited (10/10/2012 11:15 AM PST) + + | Specimen | + + | | + + + + + | Narrative | Performed At | + + + | [facility] | [place] | | Department [address] [facility] [place] | [facility] | | [ rep [address]] [ rep [facility] | | st zip] Signed | - IMAGING | | | | | Patient Name: CHAVA SCHNEIDERCISCO Physician: | | | STOD. : 1980 Age: 32 Sex: F Unit #: [id number] | | | Exam Date: 10/10/12 Location: [facility] [place] | | | Report #: [id number] Page: | | | %(RAD)RES..mtdd.print.filter("pg") of %(RAD) | | | RES..mtdd.print.filter("tpg") | | | | | | Accession Number: [id number] | | | ULTRASOUND OF THE ABDOMEN CLINICAL HISTORY: RIGHT UPPER | | | QUADRANT PAIN, MILDLY ELEVATED LIVER FUNCTION TESTS. | | | COMPARISON: None. PROTOCOL: Ultrasound images of the | | | abdomen. FINDINGS: The liver is echodense, consistent | | | with diffuse fatty infiltration. No focal lesions are seen. | | | The gallbladder is no visualized, consistent with previous | | | cholecystectomy. The pancreas demonstrates a coarse | | | echotexture. However, no focal abnormalities are visualized. | | | The right kidney is 11.0 x 5.3 x 6.2 cm. The parenchyma is | | | normal. There is no significant hydronephrosis. There | | | is normal color flow in the IVC, portal veins, hepatic veins and | | | splenic vein. The study was limited by the patient's | | | body habitus. IMPRESSION: 1. FATTY LIVER. | | | 2. PREVIOUS CHOLECYSTECTOMY. Dictated Date/Time: | | | 10/10/2012 11:15 Transcribed Date/Time: 10/10/2012 11:20 | | | Hospice Director: <<Signature on File>> | | | | | | Jose Cherry MD10/12/12 0043 <Electronically signed by Jose Cherry | | | MD> Jose Cherry MD 10/10/12 1115 Hospice Director: | | | [employer] Gojrktovbkagn99/25/13 1120 Jet Chaney, | | | | | + + + + + + + + | Performing | Address | City/State/Zipcode | Phone Number | | Organization | | | | + + + + + | [address] | [address] | [place] | [phone] | | [facility] | | [address] | | | - IMAGING | | | | + + + + + documented in this encounter Visit Diagnoses + + | Diagnosis | + + | RUQ pain - Primary Abdominal pain, right upper quadrant | + + | Elevated liver enzymes Nonspecific elevation of levels of transaminase or lactic acid | | dehydrogenase (LDH) | + + | G E R D Esophageal reflux | + + | Dysplasia of cervix, low grade (ROYER 1) Mild dysplasia of cervix | + + | Molluscum contagiosum | + + documented in this encounter
--- OUTSIDE RECORDS SUMMARY | ~2020-05-24 | XMS | Encounter Summary ---
Demographics + + + | Address | [address] | | | [place] [address] | + + + | Home Phone | | + + + | Preferred Language | Unknown | + + + | Marital Status | Single | + + + | Baptism Affiliation | [id number] | + + + | Race | Unknown | + + + | Ethnic Group | or | + + + Author + + + | Author | [facility] [place] | | | and [place] | + + + | Organization | [facility] | | | and [place] [...] [place], [place] | | | | | [address] | | + + + + + | Amy Schneider | ECON | [address] | | | | | [place], [place] | | | | | [address] | | + + + + + | Alisha Schneider | ECON | Unknown | | + + + + + Care Team Providers + +------+ + | Care Inside Sales Trainer Name | Role | Phone | [...] pain | [address] | | | | | Abdominal | [place], [place] | [place], | | | | | bloating | [address] [place] | [place] | | | | | Procedures | [place], [place] | [address] | | | | | [place] Gastric | [address] | Phone: | | | | | Emptying | Phone: | [phone] | | | | | | [phone] | Fax: | | | | | | Fax: | [phone] | | | | | | [phone] | | +--------+--------+ + + + + Reason for Visit + +--------+ + | Reason | Onset | Comments | | | Date | | + +--------+ + | Results, Pathology | 09/02/ | Egd for DOS 08/05/2018 | | | 2017 | | + +--------+ + | Insurance | 09/02/ | Authorized for Gastric Emptying Study | | Authorization | 2017 | | + +--------+ + Encounter Details +--------+ + + + + | Date | Type | Department | Care Team | Description | +--------+ + + + + | 09/02/ | Telephone | [facility] | [place] MD | Results, Pathology | | 2018 | | GASTROENTEROLOGY | [address], [place] | (Egd for DOS | | | | [address] [place] | [address] [place], [place] | 08/05/2018); | | | | [address] [place], [place] | [address] | Insurance | | | | [id number] | | Authorization | | | | [phone] | | (Authorized for | | | | | | Gastric Emptying | | | | | | Study) | +--------+ + + + + Social [...] Telephone Encounter - Jennifer Tai CMA - 09/02/2018 1:[address] [place], notified patient that the H.pylori was negative, the Duodenum and distal esophagus biopsies were WNL , and Dr. [place] suggest patient have a Gastric Emptying Study done. Patient is agreeable, or zeferino placed, we will contact her when we have authorization. documented in this encounter Plan of Treatment Not on filedocumented as of this encounter Results NM Gastric Emptying (09/25/2018 [...] | | stomach. At the four hour iglmar, there is 10.6% of gastric contents | [...] Diagnosis | + + | Epigastric pain - Primary Abdominal pain, epigastric | + + | Abdominal bloating Flatulence, eructation, and gas pain | + + documented in this encounter"
--- OUTSIDE RECORDS SUMMARY | ~2020-05-24 | XMS | Encounter Summary ---
Demographics + + + | Address | [address] | | | [place] [address] | + + + | Home Phone | | + + + | Preferred Language | Unknown | + + + | Marital Status | Single | + + + | Druze Affiliation | 1041 | + + + | Race | Unknown | + + + | Ethnic Group | or | + + + Author + + + | Author | [facility] | | | and [place] | + + + | Organization | [facility] | [...] [place], [place] | | | | | [address] | | + + + + + | Amy Schneider | ECON | [address] | | | | | [place], [place] | | | | | [address] | | + + + + + | Alisha Schneider | ECON | Unknown | | + + + + + Care Team Providers + +------+ + | Care Financial Controller Name | Role | Phone | + +------+ + | Jet Chaney MD | PCP | | + +------+ + Reason for Visit + + + | Reason | Comments | + + + | Follow-up | SI pain | + + + Follow Up (Routine) +--------+ + + + + + | Status | Reason | Specialty | Diagnoses / | Referred By | Referred To | | | | | Procedures | Contact | Contact | +--------+ + + + + + | Closed | Specialty | Physical | Diagnoses | Ritu | [facility] | | | Services | Medicine and | Low back | Jet Dempsey MD | Physiatry | | | Required | Rehabilitatio | pain, | [address] | [address] | | | | n | unspecified | [address] [place] [address] | | | | | back pain | [place] | [place], | | | | | laterality, | [address] | [place] [address] | | | | | unspecified | Phone: | Phone: | | | | | chronicity, | [phone] | [phone] | | | | | with | Fax: | Fax: | | | | | sciatica | [phone] | [phone] | | | | | presence | | | | | | | unspecified | | | | | | | Brachial | | | | | | | neuritis | | | +--------+ + + + + + Encounter Details +--------+---------+ + + + | Date | Type | Department | Care Team | Description | +--------+---------+ + + + | 12/17/ | Office | [facility] | Vi Noguera | Sacroiliitis, not | | 2020 | Visit | PHYSIATRY [address] | JULITA Cancino [address] | elsewhere classified | | | | [address] | [facility] | ([facility]) (Primary Dx); | | | | [place] | [address] [place], [place] | Obesity (BMI | | | | [address] | [address] | 35.0-39.9 without | | | | [phone] | | comorbidity) | +--------+---------+ + + + Social History [...] + + + | Blood Pressure | 128/86 | 12/18/2019 8:46 AM | | | | | PDT | | + + + + + | Pulse | 72 | 12/18/2019 8:46 AM | | | | | PDT | | + + + + + | Temperature | 36.6 C (97.9 F) | 12/18/2019 8:46 AM | | | | | PDT | | + + + + + | Respiratory Rate | 16 | 12/18/2019 8:46 AM | | | | | PDT | | + + + + + | Oxygen Saturation | - | - | | + + + + + | Inhaled Oxygen | - | - | | | Concentration | | | | + + + + + | Weight | 94.8 kg (209 lb) | 12/18/2019 8:46 AM | | | | | PDT | | + + + + + | Height | 157.5 cm (5' 2") | 12/18/2019 8:46 AM | | | | | PDT | | + + + + + | Body Mass Index | 38.23 | 12/18/2019 8:46 AM | | | | | PDT | | + + + + + documented in this encounter Patient Instructions Patient Instructions Vi Noguera PA-C - 12/18/2019 8:40 AM PDT1. I placed guillermo matamoros for SI joint injection on the left and right. Once this is denied you can contact [facility] [place] to see if it would be covered. 2. Please call if you like me to refer you back to physical therapy to address sacroiliiti s. Follow-up at the hospital thirty minutes before your scheduled procedure to allow for time to check in. You may eat and drink as usual on the day of the procedure. If you are scheduled for an epidural injection do not take any blood thinning medications f or at least 5-7 days prior to your procedure unless you have been instructed by another phys ician not to discontinue blood thinning medications. If you are having a procedure other than an epidural injection (i.e. facet injection, media l branch block, SI joint injection or other joint injection) it is not absolutely necessary to discontinue blood thinning medications but doing so will decrease the risk of bruising or bleeding. If you have had a prior stroke, DVT or PE or if you are taking blood thinning medication be cause you have atrial fibrillation, a prosthetic cardiac valve replacement or heart stenting do not stop taking your blood thinning medications unless you have permission from your car diologist or primary care provider. All other medications should be taken as usual on the day of the procedure. Common blood thinning medications include: Aspirin (a baby aspirin is o.k.) Ibuprofen (Advil or Motrin) Naproxen (Aleve) Nabumetone (Relafen) Clopidogrel (Plavix) Dipyridamole/ASA (Aggrenox) Warfarin (Coumadin) Dabigatran (Pradaxa) Rivaroxaban (Xarelto) There are many others. If you have questions about your medications and whether or not you should stop any medications please contact our office. If you are having an epidural injection or if you take any medication for relaxation/sedati on on the day of the procedure you must provide a recycling collections driver to take you home. For all procedur es it is recommended that someone else drive you home. Sacroiliitis The sacrum is the triangle-shaped bone at the base of the spine. It is linked to the other pelvis bones by the sacroiliac joints, also called SI joints. Sacroiliitis is when one or jack th SI joints are hurt or inflamed. It can make small movements of the lower back and pelvis very painful. This condition has been linked to other diseases. They includeankylosing spondylitis,rh eumatoid arthritis, psoriasis, and Crohn s disease or colitis. Symptoms may include pain o r stiffness in the hips, lower back, thighs, or buttocks. Pain occurs most often in the morn ing or after sitting for long periods of time. The pain may get worse when you walk. The swi nging motion of the hips strains the SI joints. Sacroiliitis is caused by many factors such as: Heavy lifting, especially if not done the right way Severe injury, such as a fall or car accident Osteoarthritis Infection of the joint This condition is hard to diagnose. It may be confused with other causes of low back pain. To confirm the diagnosis, you may be given a shot of numbing medicine in the SI joint. Treat ment includes rest, physical therapy, and anti-inflammatory medicines. If another health pro blem is the cause, then that must also be treated. More testing may be needed if your sympto ms don t get better. Home care If your healthcare provider has prescribed medicines, take them as directed. You may pfhezaz-mdh-ypnmxpf pain medicine to control pain, unless another medicine was prescribed. If prednisone was prescribed, don t use NSAIDs, ornonsteroidal anti-inflamm atory drugs, such asibuprofenor naproxen. Talk with your provider before using this medi cine if you have chronic liver or kidney disease or ever had a stomach ulcer or gastrointest inal bleeding. If you were referred to physical therapy, make an appointment. Be sure to do any prescri bed exercises. Don t smoke. Smoking reduces blood flow to the inflamed area. This makes it harder to treat. Talk with your doctor if you need help quitting. Follow-up care Follow up with your healthcare provider, or as advised. If you had an X-ray or anMRI,you will be notified of any new findings that may affect y our care. When to seek medical advice Contact your healthcare provider right away if any of these occur: Increasing low back pain Inflammation of the eyes Skin rash or redness Weakness or numbness in one or both legs Loss of bowel or bladder control Numbness in the groin area Date Last Reviewed: 01/14/201819992590-6304 [employer]. [address] [place] [address], [place] [address]. All righ ts reserved. This information is not intended as a substitute for professional medical care. Always follow your healthcare professional's instructions. documented in this encounter Progress Notes Vi Noguera PA-C - 12/18/2019 8:40 AM PDTFormatting of this note might be diffe rent from the original. Lauren Noguera PA-C [address] [facility] [address] [place] [address] FAX: PHYSICAL MEDICINE AND REHABILITATION H&P CHIEF COMPLAINT: Chief Complaint Patient presents with Follow-up SI pain HISTORY OF PRESENT ILLNESS: Baudilio Schneider is a 39 y.o. female being seen today in follow-up for complaints of low right sided back pain. Baudilio Schneider was last seen on 11/09/2019 at which time she had trigger po int injections. Please do give her about 50% reduction in pain. She returns today after la st trigger point to discuss the possibility of left-sided SI joint injection. Unfortunately her insurance does not cover these procedures but [facility] care options were discussed at la [facility] trigger point visit. Overall Baudilio Schneider reports that her symptoms show no change. Baudilio Schneider rates the alonzo n as 4 on scale of 1-10. Baudiilo Schneider describes the pain as aching. Her symptoms worsen with laying down, sitting, or standing in place. Her symptoms improve with activity and ch brii of position. Baudilio Schneider does not describe numbness to the legs She does not repo rt weakness of the legs. She does not have bowel and bladder dysfunction. She does not guillen ve saddle anesthesia. Treatments for these complaints have included physical therapy, NSAIDS, and neuropathic alonzo n medications. Baudilio Schneider is currently taking nortriptyline. Baudilio Olesns medications, allergies, past medical, surgical, social and family histories were reviewed and updated as appropriate. CURRENT MEDICATIONS: Current Outpatient Medications Medication Sig Dispense Refill B Complex Vitamins (VITAMIN B COMPLEX PO) Take by mouth. Blood Glucose Monitoring Suppl (FREESTYLE LITE) BRANDY Test blood sugar once daily DX E11 .29 1 each 0 Cholecalciferol (VITAMIN D3) 5000 UNITS CAPS Take 5,000 Units by mouth Daily. fish oil 1,000 mg capsule Take 2,000 mg by mouth Daily. FREESTYLE LANCETS MISC Use to test blood sugar 1 time daily. DX E11.29 100 each 2 glucose blood test strips (FREESTYLE LITE) strip Use to test blood sugar 1 time joi y Dx E11.29 100 each 12 ibuprofen (ADVIL,MOTRIN) 600 MG tablet Take 600 mg by mouth as needed. levonorgestrel (MIRENA) 20 MCG/24HR IUD 1 Device by Intrauterine route once for 1 dose. 1 Device 0 levothyroxine (SYNTHROID) 100 mcg tablet Take 100 mcg by mouth every morning (before br eakfast). lisinopril (PRINIVIL, ZESTRIL) 20 mg tablet Take 1 tablet by mouth Daily. To lower bloo d pressure 90 tablet 1 metFORMIN (GLUCOPHAGE-XR) 500 mg 24 hr tablet Take 1 tablet by mouth 2 times daily. For diabetes 60 tablet 2 Multiple Vitamins-Minerals (WOMENS ONE DAILY PO) Take [...] To help stomach inflammation 30 tablet 5 No current facility-administered medications for this visit. ALLERGIES: Allergies Allergen Reactions Hydrocodone Hives and Shortness Of Breath REVIEW OF SYSTEMS: Review of Systems Constitutional: Negative. Negative for chills, diaphoresis, fever, malaise/fatigue and lala ght loss. HENT: Negative. Eyes: Negative. Respiratory: Negative for cough. Gastrointestinal: Negative. Genitourinary: Negative. Musculoskeletal: Positive for back pain and joint pain. Negative for falls and myalgias. Neurological: Negative. Endo/Heme/Allergies: Negative. Psychiatric/Behavioral: Negative for depression, hallucinations, memory loss, substance abu se and suicidal ideas. The patient has insomnia. The patient is not nervous/anxious. PHYSICAL EXAMINATION: Blood pressure 128/86, pulse 72, temperature 36.6 C (97.9 F), resp. rate 16, height 1.5 75 m (5' 2"), weight 94.8 kg (209 lb), not currently . Body mass index is 38.23 kg/m. GENERAL: The patient is well developed and well nourished. She does not appear uncomfortab le when seated. HEENT: Normocephalic and atraumatic. Normal sclerae without icterus. NECK (ANTERIOR): There is no apparent cervical lymphadenopathy or thyromegaly. PULMONARY: The patient is in no acute respiratory distress with unlabored respirations. CARDIOVASCULAR: There no lower extremity edema. ABDOMEN: Non-distended. SKIN: Limited skin exam shows no significant rashes or lesions. NEUROLOGIC: The patient is awake, alert, and oriented. She follows simple and complex commands. Her speech is fluent. She comprehends speech well. She has no apparent deficits with short or rn long term care memory. The cranial nerves appear grossly intact. REFLEX: RIGHT LEFT PATELLAR 2+ 2+ ACHILLES 2+ 2+ MUSCULOSKELETAL : Straight leg raise and slump-sit are negative. Bear's maneuver and im pingement testing were negative for any groin pain, positive for SI joint pain. There was n o tenderness to palpation over the greater trochanters. The patient localized the majority of the pain to the left greater than right SI joint region. Lumbar facet loading was negati ve. Strength testing showed 5/5 strength throughout the lower extremities. The patient was able to heel and toe walk without difficulty. There was no redness, effusion, warmth or tresa int line tenderness in the knees or ankles. SI joint special tests: + Herminie's test, + Thigh thrust test, + Gaenslan's test RADIOGRAPHIC REVIEW: The patient's imaging was reviewed in detail with the patient today during the visit. Lumba r MRI from 03/14/2018 mild facet arthrosis at L3-4, L4-5 and L5-S1. ASSESSMENT: Encounter Diagnoses Name Primary? Sacroiliitis, not elsewhere classified (HCC) Yes Obesity (BMI 35.0-39.9 without comorbidity) PLAN: 1) Today we discussed the patient's differential diagnosis with the likely primary issue be ing SACROILIITIS. Patient's description of symptoms, physical exam, and imaging suggest this diagnosis at this time. 2) I counseled patient on treatment options which included conservative self management usi ng OTC NSAIDs/Ice and heat packs, physical therapy, prescription medications, epidural stero id injection, neuromodulation devices, as well as possible surgical intervention. 3) Imaging: As descibed above in radiology review. 4) The patient has had significant conservative care including medications (NSAIDS and narc otics), PT (multiple sessions over the years) and pediatric acute care unit nurse. Unfortunately Baudilio foster continues to have significant discomfort. It appears to me that the pain is primarily coming from SI JOINTS. I did feel that Baudilio Schneider would be a good candidate for interventional procedures an d I offered a bilateral SI INJECTIONS to be done. If her insurance denies this request sh e will be provided with [facility] contact information. Patient was also offered a referr al to physical therapy to specifically address SI joints. She has denied this referral at t his time but may call if she like to have this option. POSITIVE EXAM FINDINGS: + Herminie's test, + Thigh thrust test, + Gaenslan's test, tendern ess to palpation . (3 pain reproduction positive tests & tenderness to palpation) I did feel that Baudilio Schneider would be a good candidate for medication: No medication ch anges were made today 5) Patient will follow up with me 3 weeks post injection to discuss any imaging and/or prog ress with today's treatment plan. 6) If current treatment plan is insufficient for symptom relief we could try PT or repeat T PI as the next therapy option. Patient may also benefit from a steroid TPI in the left glut eal region if we cannot access SI joint injections. I spent 20 minutes in visit with Baudilio Schneider today with the majority of time spent counse lling the patient on her diagnosis, options for her care, and coordinating her care. documented in this encounter Plan of Treatment Not on filedocumented as of this encounter Results [place] Sacroiliac Injection Left [...] + | Sacroiliitis, not elsewhere classified (HCC) - Primary Sacroiliitis, not elsewhere | | classified | + + | Obesity (BMI 35.0-39.9 without comorbidity) Obesity, unspecified | + + documented in this encounter
--- OUTSIDE RECORDS SUMMARY | ~2020-05-24 | XMS | Encounter Summary ---
Demographics + + + | Address | [address] | | | [place] [address] | + + + | Home Phone | | + + + | Preferred Language | Unknown | + + + | Marital Status | Single | + + + | Sabianism Affiliation | 1041 | + + + | Race | Unknown | + + + | Ethnic Group | or | + + + Author + + + | Author | [facility] | | | and [place] | + + + | Organization | [facility] | | | and [...] [place], [place] | | | | | [address] | | + + + + + | Amy Schneider | ECON | [address] | | | | | [place], [place] | | | | | [address] | | + + + + + | Alisha Schneider | ECON | Unknown | | + + + + + Care Team Providers + +------+ + | Care Drill Press Hand Name | Role | Phone | + +------+ + PCP | Unavailable | + +------+ + Encounter Details +--------+ + + + + | Date | Type | Department | Care Team | Description | +--------+ + + + + | 11/01/ | Hospital | [facility] | | | | 2001 - | Encounter | MED CTR EMER[facility]Y | | | | | | [address] [place] | | | | 12/01/ | | [place] | | | | 2001 | | [address] | | | | | | [phone] | | | +--------+ + + + [...]
--- OUTSIDE RECORDS SUMMARY | ~2020-05-24 | XMS | Encounter Summary ---
Demographics + + + | Address | [facility] [address] | | | [place] [address] | + + + | Home Phone | | + + + | Preferred Language | Unknown | + + + | Marital Status | Single | + + + | Confucianism Affiliation | 1041 | + + + | Race | Unknown | + + + | Ethnic Group | or | + + + Author + + + | Author | [facility] | | | and [place] | + + + | Organization | [facility] | | | and [place] [...] [place], [place] | | | | | [address] | | + + + + + | Amy Schneider | ECON | [address] | | | | | [place], [place] | | | | | [address] | | + + + + + | Alisha Schneider | ECON | Unknown | | + + + + + Care Team Providers + +------+ + | Care Pega Developer Name | Role | Phone | + +------+ + | Jet Chaney MD | PCP | | + +------+ + Reason for Visit + +--------+ + | Reason | Onset | Comments | | | Date | | + +--------+ + | Appointment | 02/02/ | | | | 2014 | | + +--------+ + Encounter Details +--------+ + + + + | Date | Type | Department | Care Team | Description | +--------+ + + + + | 02/02/ | Telephone | [facility] | Jet Chaney, | Appointment | | 2013 | | [facility] | [address] | | | | | [address] | [place] | | | | | [place] | [address] | | | | | [address] | | | | | | [phone] | | | +--------+ + + + [...] this encounter Miscellaneous Notes Telephone Encounter - Kemi Williamson LPN - 02/02/2014 4:40 PM PDTPatient is scheduled f or her CT Scan on 02/04 at 9AM with a 8:30 check-in time. No solid food for 4 hours prior an d she needs to pick and shovel man the drink tomorrow. Could not reach patient but she called me back a nd was notified. docu mented in this encounter Plan of Treatment Not on filedocumented as of this encounter Visit Diagnoses Not on filedocumented in this encounter"
--- OUTSIDE RECORDS SUMMARY | ~2020-05-24 | XMS | Encounter Summary ---
Demographics + + + | Address | [facility] [address] | | | [place] [address] | + + + | Home Phone | | + + + | Preferred Language | Unknown | + + + | Marital Status | Single | + + + | Restorationist Affiliation | 1041 | + + + | Race | Unknown | + + + | Ethnic Group | or | + + + Author + + + | Author | [facility] | | | and [place] | + + + | Organization | [facility] | | | and [place] [...] [place], [place] | | | | | [address] | | + + + + + | Amy Schneider | ECON | [address] | | | | | [place], [place] | | | | | [address] | | + + + + + | Alisha Schneider | ECON | Unknown | | + + + + + Care Team Providers + +------+ + | Care Data Operations Director Name | Role | Phone | + +------+ + | Jet Chaney MD | PCP | | + +------+ + Reason for Referral Follow Up (Routine) +--------+ + + + + + | Status | Reason | Specialty | Diagnoses / | Referred By | Referred To | | | | | Procedures | Contact | Contact | +--------+ + + + + + | Closed | Specialty | Physical | Diagnoses | [facility] | Medicine and | Low back | Jet Dempsey MD | Physiatry | | | Required | Rehabilitatio | pain, | [address] | [address] | | | | n | unspecified | [address] [place] [address] | | | | | back pain | [place], [place] | [place], | | | | | laterality, | [address] | [place] [address] | | | | | unspecified | Phone: | Phone: | | | | | chronicity, | [phone] | [phone] | | | | | with | Fax: | Fax: | | | | | sciatica | [phone] | [phone] | | | | | presence | [...] +--------+ + | Referral (Follow up) | 05/21/ | | | | 2019 | | + +--------+ + Encounter Details +--------+ + + + + | Date | Type | Department | Care Team | Description | +--------+ + + + + | 05/21/ | Telephone | [facility] | Jet Chaney, | Referral (Follow up) | | 2019 | | MEDICINE [place] | [address] | | | | | [address] | [place] | | | | | [place] | [address] | | | | | [address] | | | | | | [phone] | | | +--------+ + + + [...] this encounter Miscellaneous Notes Telephone Encounter - Roxana Lucio LPN - 05/21/2019 10:00 AM PDTReceived [facility] 05[facility]28/[facility] Referral has been done documented in this encounter Plan of Treatment + + +--------+ + + | Name | Type | Priori | Associated Diagnoses | Order Schedule | | | | ty | | | + + +--------+ + + | * [place] [place] | Outpatient | Routin | Low back pain, | Ordered: 05/21/2019 | | Physiatry - AMB | Referral | e | unspecified back | | | Referral | | | pain laterality, | | | | | | unspecified | | | | | | chronicity, with | | | | | | sciatica presence | | | | | | unspecified | | | | | | Brachial neuritis | | + + +--------+ + + documented as of this encounter Visit Diagnoses + + | Diagnosis | + + | Low back pain, unspecified back pain laterality, unspecified chronicity, with sciatica | | presence unspecified - Primary | + + | Brachial neuritis Brachial neuritis or radiculitis nos | + + documented in this encounter"
--- OUTSIDE RECORDS SUMMARY | ~2020-05-24 | XMS | Encounter Summary ---
Demographics + + + | Address | [facility] | | | [place] [address] | + + + | Home Phone [...] + + + | Author | [facility] | | | and [place] | + + + | Organization | [facility] | | | and [place] [...] [place], [place] | | | | | [address] | | + + + + + | Amy Schneider | ECON | [address] | | | | | [place], [place] | | | | | [address] | | + + + + + | Alisha Schneider | ECON | Unknown | | + + + + + Care Team Providers + +------+ + | Care Gizzard Peeler Name | Role | Phone | + +------+ + | Jet Chaney MD | PCP | | + +------+ + Encounter Details +--------+ + + + + | Date | Type | Department | Care Team | Description | +--------+ + + + + | 02/11/ | Hospital | [facility] | Jet Chaney, | Ovarian cyst | | 2013 | Encounter | MED CTR ULTRASOUND | MD Claudy Hendrix [address] | | | | | [address] | [place], [place] | | | | | [place] | [address] | | | | | [address] | | | | | | [phone] | Trino Youssef | | | | | | , Technologist | | +--------+ + + + + [...] +---------+ + + | amitriptyline | Take 12.5 mg by | 30 | 1 | 01/26/20 | | | (ELAVIL) 25 mg | mouth nightly x 1 | tablet | | 14 | 4 | | tabletIndications: | week, then increase | | | | | | Chronic low back | to 25 mg nightly. | | | | | | pain | To help control back | | | | | | | [...] | US PELVIS W | Routin | 02/11/2014 | Ovarian cyst | Results for this | | TRANSVAGINAL | e | 9:30 AM | | procedure are in the [...] + | MISCELLANEOUS LAB | | | [phone] | + +---------+ + + | MISCELANIOUS LAB | | | [phone] | + +---------+ + + documented in this encounter Visit Diagnoses + + | Diagnosis | + + | Ovarian cyst Other and unspecified ovarian cyst | + + documented in this encounter"
--- OUTSIDE RECORDS SUMMARY | ~2020-05-24 | XMS | Encounter Summary ---
Demographics + + + | Address | [facility] | | | [place] [address] | + + + | Home Phone | | + + + | Preferred Language | Unknown | + + + | Marital Status | Single | + + + | Baptist Affiliation | 1041 | + + + | Race | Unknown | + + + | Ethnic Group | or | + + + Author + + + | Author | [facility] | | | and [place] | + + + | Organization | [facility] | | | and [...] [place], [place] | | | | | [address] | | + + + + + | Amy Schneider | ECON | [address] | | | | | [place], [place] | | | | | [address] | | + + + + + | Alisha Schneider | ECON | Unknown | | + + + + + Care Team Providers + +------+ + | Care Horse Racing Analyst Name | Role | Phone | + +------+ + | Dot Paredes MD | PCP | | + +------+ + Encounter Details +--------+ + + + + | Date | Type | Department | Care Team | Description | +--------+ + + + + | 05/29/ | Abstract | [place] [facility] | DATA MIGRATION NANCY | | | 2011 | | Conversion Location | SR | | | | | [address] | | | | | | [place], [place] | | | | | | [address] | | | | | | [phone] | | | +--------+ + + + [...] + + + | Blood Pressure | 98/70 | 03/27/2011 12:00 AM | | | | | PDT [...] + + + + | Weight | 87.1 kg (192 lb) | 03/27/2011 12:00 AM | | | | | PDT | | + + + + + | Height | 160 cm (5' 3") | 01/23/2010 12:00 AM | | | | | PDT | | + + + + + | Body Mass Index | 34.01 | 01/23/2010 12:00 AM | | | | | PDT | | + + + + + documented in this encounter Plan of Treatment Not on filedocumented as of this encounter Visit Diagnoses Not on filedocumented in this encounter
--- OUTSIDE RECORDS SUMMARY | ~2020-05-24 | XMS | Encounter Summary ---
Demographics + + + | Address | [facility] | | | [place] [address] | + + + | Home Phone | | + + + | Preferred Language | Unknown | + + + | Marital Status | Single | + + + | Christian Affiliation | 1041 | + + + | Race | Unknown | + + + | Ethnic Group | or | + + + Author + + + | Author | [facility] | | | and [place] | + + + | Organization | [facility] | | | and [...] [place], [place] | | | | | [address] | | + + + + + | Amy Schneider | ECON | [address] | | | | | [place], [place] | | | | | [address] | | + + + + + | Alisha Schneider | ECON | Unknown | | + + + + + Care Team Providers + +------+ + | Care Events Associate Name | Role | Phone | + +------+ + PCP | Unavailable | + +------+ + Encounter Details +--------+ + + + + | Date | Type | Department | Care Team | Description | +--------+ + + + + | 11/03/ | Hospital | [facility] | Sylvain Manzano | | | 2009 | Encounter | MED CTR EMERGENCY | MD Kike [address] | | | | | [place] [address] | [facility] | | | | | [place], [place] | [place] [address] | | | | | [address] | [phone] | | | | | [phone] | | | +--------+ + + + [...]
--- OUTSIDE RECORDS SUMMARY | ~2020-05-24 | XMS | Encounter Summary ---
Demographics + + + | Address | [facility] | | | [place] [address] | + + + | Home Phone [...] | Organization | [facility] | [...] [place], [place] | | | | | [address] | | + + + + + | Amy Schneider | ECON | [address] | | | | | [place], [place] | | | | | [address] | | + + + + + | Alisha Schneider | ECON | Unknown | | + + + + + Care Team Providers + +------+ + | Care Ethologist Name | Role | Phone | + +------+ + | Jet Chaney MD | PCP | | + +------+ + Reason for Visit +--------+--------+ + | Reason | Onset | Comments | | | Date | | +--------+--------+ + | LABS | 07/17/ | | | | 2012 | | +--------+--------+ + Encounter Details +--------+ + + + + | Date | Type | Department | Care Team | Description | +--------+ + + + + | 07/17/ | Telephone | [facility] | Cherri Hsu, | LABS | | 2012 | | [facility] | Drop Board Worker | | | | | [address] | | | | | | [place] | | | | | | [address] | | | | | | [phone] | | | +--------+ + + + [...] this encounter Miscellaneous Notes Telephone Encounter - Cherri Hsu Master of Arts - 07/17/2013 1:47 PM PDTCalled yessy portillo and reminded her to get labs done prior to her appointment with gastroenterology. Patient verbalized understanding .Electronically signed by Cherri Hsu Master of SkillSurvey at 2012 1:48 PM PDTdocumented in this encounter Plan of Treatment Not on filedocumented as of this encounter Visit Diagnoses Not on filedocumented in this encounter"
--- OUTSIDE RECORDS SUMMARY | ~2020-05-24 | XMS | Encounter Summary ---
Demographics + + + | Address | [facility] | | | [place] [address] | + + + | Home Phone | | + + + | Preferred Language | Unknown | + + + | Marital Status | Single | + + + | Uatsdin Affiliation | 1041 | + + + | Race | Unknown | + + + | Ethnic Group | or | + + + Author + + + | Author | [facility] | | | and [place] | + + + | Organization | [facility] | | [...] [place], [place] | | | | | [address] | | + + + + + | Amy Schneider | ECON | [address] | | | | | [place], [place] | | | | | [address] | | + + + + + | Alisha Schneider | ECON | Unknown | | + + + + + Care Team Providers + +------+ + | Care Test Tube Maker Name | Role | Phone | [...] + + | Closed | Specialty | Rheumatology | Diagnoses | Oscar, | Mark, | | | Services | | Chronic | Eloy Yusuf MD | [place] | | | Required | | midline low | [address] | MD Tyler | | | | | back pain | [address] | [address] | | | | | without | [place], | [address] | | | | | sciatica | [place] [address] | [place] | | | | | Lumbar facet | Phone: | [phone] | | | | | arthropathy | [phone] | Phone: | | | | | Procedures | Fax: | [phone] | | | | | HIM 5/4 | [phone] | Fax: | | | | | | | [phone] | +--------+ + + + + + Reason for Visit + + + | Reason | Comments | + + + | Back Pain | | + + + Encounter Details +--------+---------+ + + + | Date | Type | Department | Care Team | Description | +--------+---------+ + + + | 01/07/ | Office | [facility] | Eloy Moore, | Chronic midline low | | 2017 | Visit | PHYSIATRY [address] | MD [address] | back pain without | | | | [address] | [place] | sciatica (Primary | | | | [place] | [address] | Dx); Lumbar facet | | | | [address] | | arthropathy; Non | | | | [phone] | | morbid obesity, | | | [...] + + + | Blood Pressure | 134/70 | 01/07/2017 5:04 PM | | | | | PDT | | + + + + + | Pulse | 80 | 01/07/2017 5:04 PM | | | | | PDT | | + + + + + | Temperature | - | - | | + + + + + | Respiratory Rate | 18 | 01/07/2017 5:04 PM | | | | | PDT | | + + + + + | Oxygen Saturation | - | - | | + + + + + | Inhaled Oxygen | - | - | | | Concentration | | | | + + + + + | Weight | 93 kg (205 lb) | 01/07/2017 5:04 PM | | | | | PDT | | + + + + + | Height | 157.5 cm (5' 2") | 01/07/2017 5:04 PM | | | | | PDT | | + + + + + | Body Mass Index | 37.49 | 01/07/2017 5:04 PM | | | | | PDT | | + + + + + documented in this encounter Patient Instructions Patient Instructions Krystle Osorio RN - 01/07/2017 5:27 PM PDTA referral will be place d to Rheumatology for evaluation. Their office will call to schedule an appointment. Laboratory tests have been requested. Please go to the lab to complete your laboratory cruz ting. The results of your laboratory testing will be reviewed at your next appointment. If your labratory results demonstrate any emergent results the clinic will contact you. Please take new medication Cymbalta, take this medication nightly. Please take meloxicam twice daily with food. Electronically signed by THO Marquez 01/07/2017 5:29 PM PDT documented in this encounter Progress Notes Eloy Moore MD - 01/07/2017 5:05 PM PDTFormatting of this note might be different fro m the original. CHIEF COMPLAINT: Chief Complaint Patient presents with Back Pain HISTORY OF PRESENT ILLNESS: The patient is a 36 y.o. female being seen today in follow-up for complaints of chronic mid line low back pain and facet joint effusion. Previously it was recommended that she have laboratory testing completed, that she take Meloxicam twice daily, and that she resume physi dora therapy exercises on a routine basis. She reports that the treatment was not effective. Overall the patient reports that the symptoms show no change. She rates the pain as 6 on s aj of 1-10. She describes the pain as contant aching with intermittent stabbing. Her sym ptoms worsen with sitting or standing in a position for to long, bending, and lifting. Her symptoms improve with change of position, rest, staying active, and medciation. The patie nt does not describe numbness of the bilateral lower extremities. She does not report weakn ess of the legs. She does not have bowel and bladder dysfunction. She does not have saddl e anesthesia. Treatments for these complaints have included PT and medications. Patient is currently taki ng Meloxicam. Patient reports she is not taking mediation on a routine basis at this time.Isidoro jones reports that when taking the medication offers some reduction in pain. Patient reports she is not currently participation in a at home exercise routine. Patient has not had any prior injections completed. Previously requested Left L3-L4,L4-L5,L 5-S1 Facet injections were denied by Patient insurance on 09/12/2016. Patient reports she is planning on changing her insurance provider in the future. Patient's medications, allergies, past medical, surgical, social and family histories were reviewed and updated as appropriate. CURRENT MEDICATIONS: Current Outpatient Prescriptions Medication Sig Dispense Refill Cholecalciferol (VITAMIN D3) 5000 UNITS CAPS Take 5,000 Units by mouth Daily. fish oil 1,000 mg capsule Take 2,000 mg by mouth Daily. levonorgestrel (MIRENA) 20 MCG/24HR IUD 1 Device by Intrauterine route once for 1 dose. 1 Device 0 levothyroxine (SYNTHROID, LEVOTHROID) 75 MCG tablet TAKE ONE TABLET BY MOUTH ONE TIME D AILY 90 tablet 3 meloxicam (MOBIC) 7.5 mg tablet Take 1 tablet by mouth 2 times daily. With food 60 tabl et 1 Multiple Vitamins-Minerals (WOMENS ONE DAILY PO) Take 1 tablet by mouth Daily. omeprazole (PRILOSEC) 20 mg capsule Take 1 capsule by mouth every morning (before break fast). To help abdominal pain 90 capsule 1 UNABLE TO FIND 20 g. Med Name: Protein No current facility-administered medications for this visit. ALLERGIES: No Known Allergies REVIEW OF SYSTEMS: Review of Systems Constitutional: Negative for fever, chills, weight loss, malaise/fatigue and diaphoresis. HENT: Negative for congestion, ear discharge, ear pain, hearing loss, nosebleeds, sore thro at and tinnitus. Eyes: Negative for blurred vision, double vision, photophobia, pain, discharge and redness. Respiratory: Positive for cough. Negative for hemoptysis, sputum production, shortness of b reath, wheezing and stridor. Cardiovascular: Negative for chest pain, palpitations, orthopnea, claudication, leg swellin g and PND. Gastrointestinal: Negative for heartburn, nausea, vomiting, abdominal pain, diarrhea, const ipation, blood in stool and melena. Genitourinary: Negative for dysuria, urgency, frequency, hematuria and flank pain. Musculoskeletal: Positive for back pain and neck pain. Negative for myalgias, joint pain an d falls. Skin: Negative for itching and rash. Neurological: Negative for dizziness, tingling, tremors, sensory change, speech change, foc al weakness, seizures, loss of consciousness, weakness and headaches. Endo/Heme/Allergies: Negative for environmental allergies and polydipsia. Does not bruise/b leed easily. Psychiatric/Behavioral: Negative for depression, suicidal ideas, hallucinations, memory los s and substance abuse. The patient is not nervous/anxious and does not have insomnia. PHYSICAL EXAMINATION: Blood pressure 134/70, pulse 80, resp. rate 18, height 1.575 m (5' 2"), weight 92.987 kg (2 05 lb), not currently . Body mass index is 37.49 kg/(m^2). Filed Vitals: 01/07/17 1704 BP: 134/70 Pulse: 80 Resp: 18 PainSc: 6 PainLoc: Back GENERAL: The patient [...] has no apparent deficits with short or medical authorization specialist memory. The cranial nerves appear grossly intact. Sensory exam: Intact sensation to light touch and monofilament in the upper and lower extre mities. MOTOR EXAM: (5 IS NORMAL) * Indicates pain limited MUSCLE/ MOVEMENT: RIGHT LEFT Hip Flexion 5 5 Hip Extension 5 5 Knee Flexion 5 5 Knee Extension 5 5 Extensor Hallicus Longus 5 5 Ankle Dorsiflexion 5 5 Plantarflexion 5 5 REFLEX: RIGHT LEFT PATELLAR 1+ 1+ ACHILLES 1+ 1+ MUSCULOSKELETAL : Tenderness with palpation to approximate levles of left L4-L5, L5-S1 face ts. Facet loading test positive. The patient localized the majority of the pain to the left lumbar region. DATABASE: No new imaging to review at this time. Previously request laboratory test including; C-reac tive protein, sedimentation rate, rheumatoid factor, CCP, KELSY screen, and HLA B27 completed 09/18/2016 have returned as unremarkable. ASSESSMENT: 1. Chronic midline low back pain without sciatica 2. Lumbar facet arthropathy 3. Non morbid obesity, unspecified obesity type PLAN: 1. Patient advised to continue to work towards weight loss through diet and exercise. 2. Patient advised that she should continue daily exercises as outlined by Physical Therapy . 3. Today a referral will be placed to rheumatology for evaluation and treatment possible un derlying rheumatologic condition. Multiple large facet effusions is a bit unusual at her ag e. 4. Patient advised that she should take the prescribed Meloxicam daily, or twice daily. Marilia aguero will have refill sent to her pharmacy. A order will be placed for Patient to have a BM P completed in two months prior to her follow up appointment to continue to monitor her kidn ey function while she is taking this medication. 5. Patient advised that if she has a change in insurance in the future we could then reques t to have steroid facet injections completed. 6. Discussed with Patient addition medication treatment for her pain. Patient will be presc ribed Cymbalta for treatetment of pain from her arthritis. Patient advised that she will nee d to take this medication nightly on a routine basis. 7. It has been over one years since Patient last had advanced imaging compleateed. If pain persist despite conservative treatment a new Lumbar MRI will be requested. 8. Patient will return to the office in two months to review her consult with rheumatology and to review her response to Cymbalta and Meloxicam. I spent 30 minutes in visit with Baudilio Schneider today with the majority of time spent counse lling the patient on her diagnosis, options for her care, and coordinating her care. Eloy Moore MD (Jr.) ELECTRONICALLY SIGNED BY: Krystle Osorio RN, 01/07/2017 18:01 I Krystle Osorio RN am personally scribing in the presence of Dr. Eloy Moore Jr documented in this en counter Plan of Treatment + + +--------+ + + | Name | Type | Priori | Associated Diagnoses | Order Schedule | | | | ty | | | + + +--------+ + + | Rheumatology, | Outpatient | Routin | Chronic midline | Ordered: 01/07/2017 | | External - AMB | Referral | e | low back pain | | | Referral | | | without sciatica | | [...]
--- OUTSIDE RECORDS SUMMARY | ~2020-05-24 | XMS | Encounter Summary ---
Demographics + + + | Address | [facility] | | | [place] [address] | + + + | Home Phone | | + + + | Preferred Language | Unknown | + + + | Marital Status | Single | + + + | Moravian Affiliation | 1041 | + + + | Race | Unknown | + + + | Ethnic Group | or | + + + Author + + + | Author | [facility] | | | and [place] | + + + | Organization | [facility] | | | and [...] [place], [place] | | | | | [address] | | + + + + + | Amy Schneider | ECON | [address] | | | | | [place], [place] | | | | | [address] | | + + + + + | Alisha Schneider | ECON | Unknown | | + + + + + Care Team Providers + +------+ + | Care Forest Landscape Ecology Professor Name | Role | Phone | + +------+ + | Jet Chaney MD | PCP | | + +------+ + Reason for Visit +--------+--------+ + | Reason | Onset | Comments | | | Date | | +--------+--------+ + | Other | 09/14/ | symptoms for endoscopy | | | 2012 | | +--------+--------+ + Encounter Details +--------+ + + + + | Date | Type | Department | Care Team | Description | +--------+ + + + + | 09/14/ | Telephone | [facility] | Juan M Bailey, | Other (symptoms for | | 2012 | | GASTROENTEROLOGY | MD [address] | endoscopy) | | | | [address] | [address] [place], | | | | | [address] [place], [place] | [place] [address] | | | | | [address] | [phone] | | | | | [phone] | | | +--------+ + + + [...] this encounter Miscellaneous Notes Telephone Encounter - Maryanne Leonard RN - 09/18/2013 10:49 AM PSTPatient has not called gary k at this time, message was sent to Cass yesterday updating her that patient never called back. elephone Encounter - Maryanne Leonard RN - 09/17/2013 10:49 AM PSTCalled patient for third time unable to leave a message at this time, Cass from referrals advised that diagnosis codes for Saturday's proc edure were not approved with patients insurance need to ask her if having GERD type symptoms . elephone Encounter - Maryanne Marie RN - 09/15/2013 11:25 AM PSTCalled and left second message for patient to call back to our office, Cass in referrals is trying to get authorization need to discuss her symptoms to see if she is having any reflux symptoms. elephone Encounter - Maryanne Leonard RN - 09/14/2013 1:34 PM P STCalled and left message for patient to call back to our office, appears procedure was code d for epigastric pain, tried nausea and elevated lft's but insurance will not cover procedur e with these codes need to discuss with patient if she is having any GERD symptoms or not.El ectronically signed by Maryanne Leonard RN at 09/14/2013 1:36 PM PSTdocumented in this encount er Plan of Treatment Not on filedocumented as of this encounter Visit Diagnoses Not on filedocumented in this encounter"
--- OUTSIDE RECORDS SUMMARY | ~2020-05-24 | XMS | Encounter Summary ---
Demographics + + + | Address | [facility] | | | [place] [address] | + + + | Home Phone | | + + + | Preferred Language | Unknown | + + + | Marital Status | Single | + + + | Alevism Affiliation | 1041 | + + + | Race | Unknown | + + + | Ethnic Group | or | + + + Author + + + | Author | [facility] | | | and [place] | + + + | Organization | [facility] | | | and [place] [...] [place], [place] | | | | | [address] | | + + + + + | Amy Schneider | ECON | [address] | | | | | [place], [place] | | | | | [address] | | + + + + + | Alisha Schneider | ECON | Unknown | | + + + + + Care Team Providers + +------+ + | Care Medical Affairs Manager Name | Role | Phone | + +------+ + PCP | Unavailable | + +------+ + Encounter Details +--------+ + + + + | Date | Type | Department | Care Team | Description | +--------+ + + + + | 10/30/ | Hospital | [facility] | | | | 2001 | Encounter | MED CTR EMERGENCY | | | | | | [place] [address] | | | | | | [place] | | | | | | [address] | | | | | | [phone] | | | +--------+ + + + [...]
--- OUTSIDE RECORDS SUMMARY | ~2020-05-24 | XMS | Encounter Summary ---
Demographics + + + | Address | [address] | | | [place] [address] | + + + | Home Phone | | + + + | Preferred Language | Unknown | + + + | Marital Status | Single | + + + | Gnosticist Affiliation | 1041 | + + + | Race | Unknown | + + + | Ethnic Group | or | + + + Author + + + | Author | [facility] | | | and [place] | + + + | Organization | [facility] | | | and [...] [place], [place] | | | | | [address] | | + + + + + | Amy Schneider | ECON | [address] | | | | | [place], [place] | | | | | [address] | | + + + + + | Alisha Schneider | ECON | Unknown | | + + + + + Care Team Providers + +------+ + | Care Director Of Institutional Research Name | Role | Phone | + +------+ + | Jet Chaney MD | PCP | | + +------+ + Reason for Visit + +--------+ + | Reason | Onset | Comments | | | Date | | + +--------+ + | Imaging Only | 09/29/ | Gastric Emptying results | | | 2018 | | + +--------+ + | Medication Related | 09/29/ | Kathy 8 mcg | | | 2019 | | + +--------+ + Encounter Details +--------+ + + + + | Date | Type | Department | Care Team | Description | +--------+ + + + + | 09/29/ | Telephone | [facility] [place] | Hill [place] MD | Imaging Only | | 2019 | | GASTROENTEROLOGY | [address], [place] | (Gastric Emptying | | | | [address] [place] | [address] [place] | results); Medication | | | | [address], [place] | [address] | Related (Amitiza 8 | | | | [address] | | mcg) | | | | [phone] | | | +--------+ + + + [...] Telephone Encounter - Jennifer Tai CMA - 10/01/2018 2:41 PM PSTPatient picked up the p rescription of Amitiza 8 mcg, one capsule twice daily, there is no co-pay for this medicatio n. Patient is to try this for 10-14 days and call us back with how it is working.Electronica lly signed by Jennifer aTi CMA at 10/01/2018 2:45 PM PSTTelephone Encounter - Karla Camp RN - 09/30/2018 2:39 PM PSTOrder [facility] #[id number] R-1; patient aware possible PA needed. elephone Encounter - Jennifer Tai CMA - 09/29/2018 2:[facility] were given, She would like to try Amitiza for her IBS/Constipatio n. Script for Amitiza 8 mcg one capsule BID sent to [facility] in [place]. Isidoro jones is aware that we will probably need to get a prior authorization form her insurance. W e will wait to schedule the MRI Enterography to see if this works first.Electronically dieudonne d by Jennifer Tai CMA at 09/29/2018 2:19 PM PSTTelephone Encounter - Jennifer Tai CM A - 09/29/2018 11:58 AM PSTLeft voicemail for patient to call back for her Gastric Emptying study for DOS 09/25/2018. Per Dr. [place], the study was normal, he wants patient to get an MRI Enterography, and if that is normal he suspects she has IBS with constipation, does patient want to trial Linzess or Amitiza prior to MRI? documented in this encounter Plan of Treatment Not on filedocumented as of this encounter Visit Diagnoses + + | Diagnosis | + + | Irritable bowel syndrome with constipation - Primary Irritable bowel syndrome | + + documented in this encounter"
--- OUTSIDE RECORDS SUMMARY | ~2020-05-24 | XMS | Encounter Summary ---
Demographics + + + | Address | [address] | | | [place] [address] | + + + | Home Phone | | + + + | Preferred Language | Unknown | + + + | Marital Status | Single | + + + | Hoahaoism Affiliation | 1041 | + + + | Race | Unknown | + + + | Ethnic Group | or | + + + Author + + + | Author | [facility] | | | and [place] | + + + | Organization | [facility] | | | and [...] [place], [place] | | | | | [address] | | + + + + + | Amy Schneider | ECON | [address] | | | | | [place], [place] | | | | | [address] | | + + + + + | Alisha Schneider | ECON | Unknown | | + + + + + Care Team Providers + +------+ + | Care Campaign Associate Name | Role | Phone | + +------+ + | Jet Chaney MD | PCP | | + +------+ + Reason for Visit + +--------+ + | Reason | Onset | Comments | | | Date | | + +--------+ + | Financial | 01/27/ | | | | 2020 | | + +--------+ + Encounter Details +--------+ + + + + | Date | Type | Department | Care Team | Description | +--------+ + + + + | 01/27/ | Telephone | [facility] [place] | Eloy Moore, | Financial | | 2019 | | PHYSIATRY [address] | [address] | | | | | [address] | [place] | | | | | [place] | [address] | | | | | [address] | | | | | | [phone] | | | +--------+ + + + [...] this encounter Miscellaneous Notes Telephone Encounter - Lizzy Appiah - 01/28/2020 12:02 PM PDTPatient called and states she has received her senior financial reporting accountant letter stating she is approved. Would like to go ahead with injection. Please call patient to advise documented in this encounter Plan of Treatment Not on filedocumented as of this encounter Visit Diagnoses Not on filedocumented in this encounter"
--- OUTSIDE RECORDS SUMMARY | ~2020-05-24 | XMS | Encounter Summary ---
Demographics + + + | Address | [facility] | | | [place] [address] | + + + | Home Phone [...] + | Organization | [facility] | | | and [place] | + [...] [place], [place] | | | | | [address] | | + + + + + | Amy Schneider | ECON | [address] | | | | | [place], [place] | | | | | [address] | | + + + + + | Alisha Schneider | ECON | Unknown | | + + + + + Care Team Providers + +------+ + | Care Professor Of Biology Name | Role | Phone | + +------+ + PCP | Unavailable | + +------+ + Encounter Details +--------+ + + + + | Date | Type | Department | Care Team | Description | +--------+ + + + + | 09/27/ | Hospital | [facility] | | | | 2009 | Encounter | [facility] | | | | | | [address] | | | | | | [place] | | | | | | [address] | | | | | | [phone] | | | +--------+ + + + [...]
--- OUTSIDE RECORDS SUMMARY | ~2020-05-24 | XMS | Encounter Summary ---
Demographics + + + | Address | [facility] [facility] [address] | | | [place] [address] | + + + | Home Phone [...] + + + | Author | [facility] | | | and [place] | + + + | Organization | [facility] | | | and [...] [place], [place] | | | | | [address] | | + + + + + | Amy Schneider | ECON | [address] | | | | | [place], [place] | | | | | [address] | | + + + + + | Alisha Schneider | ECON | Unknown | | + + + + + Care Team Providers + +------+ + | Care Color Sprayer Name | Role | Phone | + [...] Radiology | Diagnoses | Ritu, | [facility] | | | | | Chronic low | Jet Dempsey MD | [address] | | | | | back pain | [address] | [place], | | | | | Procedures | [address] [place] | [place] | | | | | MRI Lumbar | [place] | [address] | | | | | Spine wo | [address] | Phone: | | | | | Contrast | Phone: | [phone] | | | | | | [phone] | Fax: | | | | | | Fax: | [phone] | | | | | | [phone] | | +--------+--------+ + + + + Reason for Visit Diagnostic/Screening (Routine) +--------+--------+ + + + + | Status | Reason | Specialty | Diagnoses / | Referred By | Referred To | | | | | Procedures | Contact | Contact | +--------+--------+ + + + + | Closed | | Radiology | Diagnoses | Ritu, | [facility] | | | | | Chronic low | Jet Dempsey MD | [address] | | | | | back pain | [address] | [place], | | | | | Procedures | [place] | [place] | | | | | MRI Lumbar | [place] | [address] | | | | | Spine wo | [address] | Phone: | | | | | Contrast | Phone: | [phone] | | | | | | [phone] | Fax: | | | | | | Fax: | [phone] | | | | | | [phone] | | +--------+--------+ + + + + Encounter Details +--------+ + + + + | Date | Type | Department | Care Team | Description | +--------+ + + + + | 11/24/ | [facility] | [facility] | Jet Chaney, | Chronic low back | | 2016 | Encounter | MED CTR MRI [address] | pain | | | | [place], | [place], [place] | | | | | [place] [address] | [phone] | | | | | [phone] | | | +--------+ + + + [...] + +---------+ + + | ibuprofen | TAKE ONE TABLET BY | 30 | 1 | 06/06/20 | | | (ADVIL,MOTRIN) 800 | MOUTH EVERY EIGHT | tablet | | 15 | 6 | | MG tablet | HOURS NEEDED FOR | | | | | | | PAIN | | | | | + + + +---------+ + + | levonorgestrel | 1 Device by | 1 | 0 | 09/16/19 | | | (MIRENA) 20 MCG/24HR | Intrauterine route | Device | | 16 | 6 | | IUDIndications: | once for 1 dose. | | | | | | Encounter for | | | | | | | contraceptive | | | | | | | management, | | | | | | | unspecified | | | | | | | encounter [...] MRI LUMBAR SPINE WO | Routin | 11/25/2015 | Chronic low back | Results for this | | CONTRAST | e | 3:55 PM | pain | procedure are in the | | | | PST | | results section. | + +--------+ + + + documented in this encounter Results MRI Lumbar Spine wo Contrast (11/25/2015 3:55 PM PST) + + | Specimen | + + | | + + + + + | Narrative | Performed At | + + + | UNENHANCED MRI LUMBAR SPINE 11/25/2015 3:34 PM CLINICAL HISTORY: | [facility] | | Chronic left sided low back pain. COMPARISON: CT abdomen and | [facility] | | pelvis January 2014, pelvic ultrasound january 2014 TECHNIQUE: The | [facility] | | following 1.5T MR sequences of the lumbar spine were obtained: 1. | - IMAGING | | Axial and sagittal T1. 2. Axial, sagittal, and coronal T2. 3. | | | Sagittal STIR. FINDINGS: Five non rib-bearing, lumbar type | | | vertebrae are suggested on the coronal sequence. Marrow signal is | | | normal. Tiny Schmorl's nodes are again visible within lower | | | thoracic vertebral endplates. Lumbar vertebral height and alignment | | | are maintained, without evident fracture, spondylolysis or | | | spondylolisthesis. The conus medullaris is unremarkable, terminating | | | at T12-L1. The imaged ovaries are again prominent in size, | | | measuring up to approximately 4.4 cm bilaterally, and contain | | | numerous small, peripherally oriented fluid signal follicles. The | | | imaged left ovarian vein is subjectively prominent in caliber as | | | well. Imaged intra-abdominal and paraspinal structures are otherwise | | | unremarkable. The T10-11, T11-12, T12-L1, L1-2 and L2-3 levels | | | are unremarkable on provided sagittal images through the region. | | | Early facet hypertrophy and trace facet joint effusions are present at | | | L3-4, L4-5 and L5-S1, without disc pathology or stenosis. Tiny | | | synovial cysts are noted along the posterior margin of the right L4-5 | | | facet joint. IMPRESSION - 1. EARLY MID TO LOWER LUMBAR FACET | | | ARTHROPATHY WITHOUT DISC PATHOLOGY OR STENOSIS. 2. PROMINENT | | | BILATERAL OVARIES CONTAINING NUMEROUS PERIPHERALLY ORIENTED FLUID | | | SIGNAL FOLLICLES, SUSPICIOUS FOR POLYCYSTIC OVARY SYNDROME. CLINICAL | | | AND LABORATORY CORRELATION ADVISED. Dictated and Signed by: Jose Ramon Ibrahim MD Electronically signed: 11/25/2015 5:16 PM | | + + + + + | Procedure Note | + + | Kranthi, Rad Results In - 11/25/2015 5:19 PM PST UNENHANCED MRI LUMBAR SPINE 11/25/2015 | | 3:34 PMCLINICAL HISTORY: Chronic left sided low back pain. COMPARISON: CT abdomen and | | pelvis January 2014, pelvic ultrasound january 2014TECHNIQUE: The following 1.5T MR sequences | | of the lumbar spine were obtained:1. Axial and sagittal T1.2. Axial, sagittal, and | | coronal T2.3. Sagittal STIR.FINDINGS: Five non rib-bearing, lumbar type vertebrae are | | suggested on thecoronal sequence. Marrow signal is normal. Tiny Schmorl's nodes are | | againvisible within lower thoracic vertebral endplates. Lumbar vertebral height | | andalignment are maintained, without evident fracture, spondylolysis | | orspondylolisthesis. The conus medullaris is unremarkable, terminating at T12-L1. The | | imaged ovaries are again prominent in size, measuring up to approximately4.4 cm | | bilaterally, and contain numerous small, peripherally oriented fluidsignal follicles. | | The imaged left ovarian vein is subjectively prominent incaliber as well. Imaged | | intra-abdominal and paraspinal structures are otherwiseunremarkable.The T10-11, T11-12, | | T12-L1, L1-2 and L2-3 levels are unremarkable on providedsagittal images through the | | region.Early facet hypertrophy and trace facet joint effusions are present at L3-4,L4-5 | | and L5-S1, without disc pathology or stenosis. Tiny synovial cysts arenoted along the | | posterior margin of the right L4-5 facet joint.IMPRESSION -1. EARLY MID TO LOWER LUMBAR | | FACET ARTHROPATHY WITHOUT DISC PATHOLOGY ORSTENOSIS.2. PROMINENT BILATERAL OVARIES | | CONTAINING NUMEROUS PERIPHERALLY ORIENTED FLUIDSIGNAL FOLLICLES, SUSPICIOUS FOR | | POLYCYSTIC OVARY SYNDROME. CLINICAL ANDLABORATORY CORRELATION ADVISED.Dictated and | | Signed by: Jose Ramon Ibrahim MD Electronically signed: 11/25/2015 5:16 PM | | | |The T10-11, T11-12, T12-L1, L1-2 and L2-3 levels are unremarkable on provided | |sagittal images through the region. | | | |Early facet hypertrophy and trace facet joint effusions are present at L3-4, | |L4-5 and L5-S1, without disc pathology or stenosis. Tiny synovial cysts are | |noted along the posterior margin of the right L4-5 facet joint. | | | |IMPRESSION - | |1. EARLY MID TO LOWER LUMBAR FACET ARTHROPATHY WITHOUT DISC PATHOLOGY OR | |STENOSIS. | | | |2. PROMINENT BILATERAL OVARIES CONTAINING NUMEROUS PERIPHERALLY ORIENTED FLUID | |SIGNAL FOLLICLES, SUSPICIOUS FOR POLYCYSTIC OVARY SYNDROME. CLINICAL AND | |LABORATORY CORRELATION ADVISED. | | | |Dictated and Signed by: Jose Ramon Ibrahim MD | | Electronically signed: 11/25/2015 5:16 PM | + + + + + + + | Performing | Address | City[facility] | Phone Number | | Organization | | | | + + + + + | [address] | [address] | [place] | [phone] | | [facility] | | [address] | | | - IMAGING | | | | + + + + + documented in this encounter Visit Diagnoses + + | Diagnosis | + + | Chronic low back pain Lumbago | + + documented in this encounter"
--- OUTSIDE RECORDS SUMMARY | ~2020-05-24 | XMS | Encounter Summary ---
Demographics + + + | Address | [facility] | | | [place] [address] | + + + | Home Phone | | + + + | Preferred Language | Unknown | + + + | Marital Status | Single | + + + | Anabaptist Affiliation | [id number] | + + + | Race | Unknown | + + + | Ethnic Group | or | + + + Author + + + | Author | [facility] | | | and [place] | + + + | Organization | [facility] | | | and [place] [...] [place], [place] | | | | | [address] | | + + + + + | Amy Schneider | ECON | [address] | | | | | [place], [place] | | | | | [address] | | + + + + + | Alisha Schneider | ECON | Unknown | | + + + + + Care Team Providers + +------+ + | Care Ux Ui Designer Name | Role | Phone | + [...] | Jet Dempsey MD | [address] | | | | | back pain | [address] | [place], | | | | | Procedures | [address] | [place] | | | | | MRI Lumbar | [place] | [address] | | | | | Spine wo | [address] | Phone: | | | | | Contrast | Phone: | [phone] | | | | | | [phone] | Fax: | | | | | | Fax: | [phone] | | | | | | [phone] | | +--------+--------+ + + + + Reason for Visit + + + | Reason | Comments | + + + | Back Pain | | + + + | Abdominal Pain | | + + + Encounter Details +--------+---------+ + + + | Date | Type | Department | Care Team | Description | +--------+---------+ + + + | 11/11/ | Office | [facility] | Jet Chaney, | Preventative health | | 2016 | Visit | MEDIC[facility] | [address] | care (Primary Dx); | | | | [address] | [place] | Hypothyroidism, | | | | [place] | [address] | unspecified | | | | [address] | | hypothyroidism type; | | | | [phone] | | Gestational | | | | | | diabetes mellitus, | | | | | | delivered; Abnormal | | | | | | glucose; Chronic low | | | | | | back pain; Left | | | | | | upper quadrant pain; | | | | | | Encounter for | | | | | | contraceptive | | | | | | management, | | | | | | unspecified | | | | | | encounter; Tobacco | | | | | | abuse | +--------+---------+ + + [...] + + + | Blood Pressure | 142/88 | 11/11/2015 1:21 PM | | | | | PST | | + + + + + | Pulse | 80 | 11/11/2015 1:21 PM | | | | | PST | | + + + + + | Temperature | 36.9 C (98.4 F) | 11/11/2015 1:21 PM | | | | | PST | | + + + + + | Respiratory Rate | 16 | 11/11/2015 1:21 PM | | | | | PST | | + + + + + | Oxygen Saturation | 96% | 11/11/2015 1:21 PM | | | | | PST | | + + + + + | Inhaled Oxygen | - | - | | | Concentration | | | | + + + + + | Weight | 98 kg (216 lb 1.6 | 11/11/2015 1:21 PM | | | | oz) | PST | | + + + + + | Height | 157.5 cm (5' 2") | 11/11/2015 1:21 PM | | | | | PST | | + + + + + | Body Mass Index | 39.53 | 11/11/2015 1:21 PM | | | | | PST | | + + + + + documented in this encounter Patient Instructions Patient Instructions Jet Chaney MD - 11/11/2015 1:58 PM PSTBP 142/88 mmHg | Pulse 8 0 | Temp(Src) 36.9 C (98.4 F) (Temporal) | Resp 16 | Ht 1.575 m (5' 2") | Wt 98.022 kg ( 216 lb 1.6 oz) | BMI 39.52 kg/m2 | SpO2 96% The best thing you can do for your health is quit smoking. The next best thing you can do is get the weight down. A reasonable goal is 4-5 lbs of lala ght loss per month. Please stop by the lab for blood work. You need to be fasting - nothing to eat or drink ot her than water or black coffee for 10 hours. No alcohol for 24 hours. The lab is open 7 AM Saturday-Saturday; 8 AM-noon on weekends (use Urgent Care entrance). If you do not hear from our office by Saturday to schedule an MRI of your back please call my office. We will confirm your Pap smear results. If normal your next Pap smear is due in 5 years. We discuss mammogram screening in your 40's. We discuss colon cancer screening at age 50. How to Quit Smoking Smoking is one of the hardest habits to break. About half of allpeople who have ever smok ed have been able to quit. Most peoplewho still smoke want to quit. Here are some of the b est ways to stop smoking. Keep trying It takes most smokers about eight tries before they can quit entirely. It s important not to give up. Go cold turkey Mostformer smokers quit cold turkey (all at once). Trying to cut back gradually doesn't s eem to work as well, perhaps because it continues the smoking habit. Also, it is possible to inhale more while smoking fewer cigarettes. This results in the same amount of nicotine in your body! Get support Support programs can be a big help, especially for heavy smokers. These groups offer lectur es, ways to change behavior, and peer support. Here are some ways to find a support program: Free national quitline: 657-EHEC-ARM (712-627-9101). Hospital quit-smoking programs. [place] [employer]: (349.291.9463). [place] [employer] (014-261-1090). Support at home is important too. Nonsmokers can offer praise and encouragement. If the smo ker in your life finds it hard to quit, encourage them to keep trying! Vzfl-fpq-krrqswf medicines Nicotine replacement therapymay make quittingeasier. Certain aids, such as the nicotine patch, gum, and lozenges, are available without a prescription. Itis best to use these un zeferino a doctor s care, though. The skin patch provides a steady supply of nicotine. Nicotine gum and lozenges givetemporary bursts of low levels of nicotine. Both methods reduce the craving for cigarettes. Warning: If youhave nausea, vomiting, dizziness, weakness, or a fa st heartbeat, stop using these products and see your doctor. Prescription medicines After reviewingyour smoking patterns and prior attempts to quit, your doctor may offer a prescription medicine such as bupropion, varenicline, a nicotine inhaler, or nasal spray. Ea ch has advantages and side effects. Your doctor can review these with you. Health benefits of quitting The benefits of quitting start right away and keep improving the longer you go without smok ing.These benefits occur at any age. So whether you are 17 or 70, quitting is a good dec ision. Some of the benefits include: 20 minutes: Blood pressure and pulse return to normal. 8 hours: Oxygen levels return to normal. 2 days: Ability to smell and taste begin to improve as damaged nerves regrow. 2 to 3 weeks: Circulation and lung function improve. 1 to 9 months: Coughing, congestion, and shortness of breath decrease; tiredness decreas es. 1 year: Risk of heart attack decreases by half. 5 years: Risk of lung cancer decreases by half; risk of stroke becomes the same as a non smoker s. For more on how to quit smoking, try these online resources: Smokefree.govhttp://smokefree.gov/ Clearing the Air booklet from the National Cancer Institutehttp://smokefree.gov/si cruz/default/files/pdf/fusrqmqr-atz-ytb-accessible.pdf 7525-1644 [facility]. [address] [place] [address]. All righ ts reserved. This information is not intended as a substitute for professional medical care. Always follow your healthcare professional's instructions. Losing Weight (Cardiovascular) [...] and include moderate to vigorous physical activity. [phone] [facility]. [address] [place] [address]. All righ ts reserved. This information is [...] look to your doctor, registered titian, and insurance professional for help. Your local hospital can give you more information about nutrition, exercise, and weight loss. 5483-6382 [facility]. [address] [place] [address], [place] [address]. All righ ts reserved. This information is [...] Just don t eat the whole box! 4142-9976 [facility]. [address] [place] [address], [place] [address]. All righ ts reserved. This information is not intended as a substitute for professional medical care. Always follow your healthcare professional's instructions. Back Care Tips These are things you can do to [...] should avoid high heels. Therapeutic massage can help relieve acute and chronic back pain. During the first two days after an acute injury or flare-up of chronic back pain, apply anice packto the painful area for 20 minutes every 2-4 hours. This will reduce swelling and pain. Heat (hot shower, hot bath, or heating pad) works well for muscle spasm. You can s tart with ice, then switch to heat after two days. Some patients feel best alternating ice a nd heat treatments. Use the one method that feels the best to you. You may use acetaminophen (Tylenol) or ibuprofen (Motrin, Advil) to control pain, unless another medicine was prescribed. [NOTE: If you have chronic liver or kidney disease or ever had a stomach ulcer or GI bleeding, talk with your doctor before using these medicines.] Lumbar Stretch Here is a simple stretching exercise that [...] of these exercises for each leg. Safe Lifting Method Don t bend over at the waist to lift an object off the floor. Instead, bend your kne es and hips in a squat. Keep your back and head upright. Hold the object close to your body, directly in front of you. Straighten your legs to lift the object. Lower the object to the floor in the reverse fashion. If you must slide something across the floor, push it. Posture Tips SITTING Sit in chairs with straight backs or low-back support. Keep your knees a little higher than your hips. If necessary, use a low stool to prop your feet on, so your feet are resting on a solid surface. When driving, sit up straight. Adjust the seat forward so you are not leaning toward the [employer] wheel. A small pillow or rolled towel behind your lower back may help if you are dr iving long distances. STANDING When standing for long periods, shift most of your weight to one leg at a time. Alternate l egs every few minutes. SLEEPING The best way to sleep is on [...] un zeferino the mattress to add support. Follow Up with your doctor or as directed by our staff. [NOTE: If X-rays, a CT scan or an MRI scan were taken, they will be reviewed by a radiologi st. You will be notified of any new findings that may affect your care.] Return Promptly or contact your doctor if any of the following occur: Pain becomes worse or spreads to your arms or legs Weakness or numbness in one or both arms or legs Loss of bowel or bladder control Numbness in the groin area [phone] [facility]. [address] [place] [address]. All righ ts reserved. This information is not intended as a substitute for professional medical care. Always follow your healthcare professional's instructions. documented in this encounter Progress Notes Jet Chaney MD - 11/11/2015 1:33 PM PSTFormatting of this note might be different fr om the original. Subjective: Patient ID: Baudilio Schneider is a 35 y.o. female here for physical, back pain, side pain. HPI She's had left UQ pain for ~3 months. Does not radiate. It only hurts when she presses on it. Not related to eating. Not associated with fever, N/V, GERD, constipation, diarrhea. She stopped the omeprazole during . She continues to have daily low back pain. It does not radiate. Fluctuates between 3-6/10 . Worse with laying flat or hunching over at waist. Tylenol helps a little. She occasiona lly takes hydrocodone left over from dental procedure at night. She no longer takes nortrip tyline, stopped once . PT not covered so she has never done formal PT. No saddle p aresthesias, leg paresthesias, bowel/bladder dysfunction, dysuria, hematuria. She had a baby boy 05/17/2015 via . complicated by gestational diabetes for wh ich she took medication (she thinks metformin). No longer . She had a normal Pap Smear with Dr Mohan after delivery. She now has Mirena IUD and tolerating well. She is pretty certain she is taking levothyroxine [address] Mohan has been prescri guillermo it. She restarted smoking. Patient's medications, allergies, past medical, surgical, social and family histories were obtained and reviewed as appropriate. History Social History Narrative Marital Status: . 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 Negative for fever and unexpected weight change. HENT: Negative for hearing loss and trouble swallowing. Eyes: Negative for visual disturbance. Respiratory: Negative for cough and shortness of breath. Cardiovascular: Negative for chest pain and leg swelling. Gastrointestinal: See HPI Endocrine: Negative for cold intolerance, heat intolerance, polydipsia and polyuria. Genitourinary: Negative for dysuria, hematuria and vaginal discharge. No concerning breast lumps, nipple discharge Musculoskeletal: See HPI Skin: Negative for rash. Neurological: Negative for headaches. Hematological: Negative for adenopathy. Psychiatric/Behavioral: Negative for dysphoric mood. BP 142/88 mmHg | Pulse 80 | Temp(Src) 36.9 C (98.4 F) (Temporal) | Resp 16 | Ht 1.575 m (5' 2") | Wt 98.022 kg (216 lb 1.6 oz) | BMI 39.52 kg/m2 | SpO2 96% Objective: Physical Exam Constitutional: She is oriented to person, place, and time. Very pleasant, obese, NAD HENT: Head: Normocephalic and atraumatic. Right Ear: External ear normal. Left Ear: External ear normal. Mouth/Throat: Oropharynx is clear and moist. Eyes: EOM are normal. Pupils are equal, round, and reactive to light. Neck: Neck supple. No thyromegaly present. Cardiovascular: Normal rate, regular rhythm, normal heart sounds and intact distal pulses. Exam reveals no gallop and no friction rub. No murmur heard. Pulmonary/Chest: Breath sounds normal. No respiratory distress. She has no wheezes. She has no rales. Abdominal: Soft. She exhibits no distension and no mass. There is tenderness (Mild LUQ tend erness without rebound or guarding.). There is no rebound and no guarding. Musculoskeletal: She exhibits no edema. No spinal or paraspinal tenderness. Symmetric 5/5 strength in LE's. Able to squat, walk on toes, walk on heels. Lymphadenopathy: She has no cervical adenopathy. Neurological: She is alert and oriented to person, place, and time. No cranial nerve defici t. Negative straight leg raise Patella 2+ symmetric, Achilles 1+ symmetric Sensation to light touch intact in LE's bilaterally Skin: No rash noted. Psychiatric: She has a normal mood and affect. Her behavior is normal. Thought content norm al. PHQ9 Depression scale: Total Score 11 (11/11/151399) (Printable questionnaires in Romansh) Interpretation of Total Score: 1-4 = Minimal depression, 5-9 = Mild depression, 10-14 = Mod erate depression, 15-19 = Moderately severe depression, 20-27 = Severe depression 1. Little interest or pleasure in doing things?: More than half the days (11/11/151399) 2. Feeling down, depressed, or hopeless: Several days (11/11/151399) 3. Trouble falling or staying asleep, or sleeping too much?: Nearly every day (11/11/151399) 4. Feeling tired or having little energy?: Nearly every day (11/11/151399) 5. Poor appetite or overeating: More than half the days (11/11/151399) 6. Feeling bad about yourself - or that you are a failure or have let yourself or your f amily down?: Not at all (11/11/151399) 7. Trouble concentrating on things, such as reading the newspaper or watching television : Not at all (11/11/151399) 8. Moving or speaking so slowly that other people could have noticed. Or the opposite - being so fidgety or restless that you have been moving around a lot more than usual?: Not at all (11/11/151399) 9. Thoughts that you would be better off , or of hurting yourself in some way?: Not at all (11/11/151399) 10. Assessment: Baudilio was seen today for back pain and abdominal pain. Diagnoses and all orders for this visit: Preventative health care: BMI obese. BP mildly elevated. Smokes. No other substance abu se. Pap UTD, we have results from 2013, but not most recent. No indication for early mammo gram, colon cancer screening. Vaccines UTD. Moderate depressive symptoms complicated by po or sleep with infant care. Endorses safety - Diet, exercise, weight loss reviewed. - Request most recent Pap - Screen for diabetes Orders: - Comprehensive Metabolic Panel; Future - Lipid Panel; Future - CBC with Differential; Future - Urinalysis, Reflex Microscopic and/or Culture; Future Hypothyroidism, unspecified hypothyroidism type: Due for recheck Orders: - TSH; Future Adjust levothyroxine based on results Gestational diabetes mellitus, delivered: Needs screening . Orders: - Glucose Tolerance Test, 2Hr; Future - Hemoglobin A1C; Future Chronic low back pain: Chronic and has not responded adequately to home treatment. Compli cated by weight gain after recent . Unfortunately PT has been denied in past. No systemic symptoms or symptoms/signs of cauda equina. She would really like MRI. 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 - Weight loss - Consider resuming nortriptyline - Educated on warning signs Orders: - MRI Lumbar Spine wo Contrast; Future - CBC with Differential; Future - Urinalysis, Reflex Microscopic and/or Culture; Future Left upper quadrant pain: Suspect muscular given exam and lack of correlation to eating. No concerning systemic symptoms. - Educated on warning signs Orders: - Comprehensive Metabolic Panel; Future - CBC with Differential; Future Encounter for contraceptive management, unspecified encounter: Updated med list Orders: - levonorgestrel (MIRENA) 20 MCG/24HR IUD; 1 Device by Intrauterine route once for 1 do se. Tobacco abuse - Advised to quit FU: 3 weeks to f/u on results, pain Prashanth Chaney MD [facility] LP N - 11/11/2015 1:21 PM PSTPatient is here for an annual exam and also complains of lower le ft sided back pain and upper left abdominal pain. documented in this encounter Plan of Treatment [...] pelvic ultrasound january 2014 TECHNIQUE: The | [facility] | | following 1.5T MR sequences [...] ADVISED. Dictated and Signed by: Jose Ramon | | | MD Patrice Electronically signed: 11/25/2015 5:16 PM | | [...] + | [facility] | [address] | [place] | [phone] | | [facility] | | [address] | | | - IMAGING | | | | + + + + + Urinalysis, Reflex Microscopic and/or Culture (11/12/2015 11:15 AM PST) + + + + + + | Component | Value | Ref Range | Performed | Pathologist | | | | | At | Signature | + + + + + + | Color, | Yellow | Light Yellow, | [facility] | | | Urine | | Yellow, Straw | [facility] | | | | | | MEDICAL | | | | | | CENTER - | | | | | | LABORATORY | | + + + + + + | Clarity, | Cloudy | | [facility] | | | Urine | [...] - 1.030 | [facility] | | | Adel, | | | [facility] | | | Urine | | | MEDICAL | | | | | | CENTER - | | | | | | LABORATORY | | + + + + + + | Protein, | 100 mg/dL (A) | Negative | [facility] | [...] + + + + | Leukocyte | Small (A) | Negative | [facility] | | | Esterase, | | | [facility] | | | Urine | | | MEDICAL | | | | | | CENTER - | | | | | | LABORATORY | | + + + + + + | Urobilinoge | Negative | < 0.2 mg/dL, | [facility] | | | n, Urine | | 1.0 mg/dL, 4.0 | [facility] | | | | | mg/dL, Normal, | MEDICAL | | | | | 1.0 E.U./dL, | CENTER - | | | | | 0.2 E.U./dL, | LABORATORY | | | | | 0.2 mg/dL, | | | | | | Negative, 1 | | | | | | mg/dL, <2.0 | | | | | | mg/dL | | | + [...] + + + | Red Blood | 25-50 (A) | 0 - 2 /HPF | [facility] | | | Cells, | | | [facility] | | | Urine | | | MEDICAL | | | | | | CENTER - | | | | | | LABORATORY | | + + + + + + | Squamous | 5-10 (A) | 0 - 2 /LPF | [...] ST. | [address] | [place], [place] | [phone] | | [facility] | | [address] | | | - LABORATORY | | | | + + + + + CBC with Differential (11/12/2015 11:07 AM PST) + + + + + + | Component | Value | Ref Range | Performed | Pathologist | | | | | At | Signature | + + + + + + | White Blood | 7.6 | 4.0 - 11.0 K/uL | [facility] | | | Cells | | | [facility] | | | | | | MEDICAL | | | | | | CENTER - | | | | | | LABORATORY | | + + + + + + | Red Blood | 5.01 | 3.70 - 5.20 | [facility] | | | Cells | | M/uL | [facility] | | | | | | MEDICAL | | | | | | CENTER - | | | | | | LABORATORY | | + + + + + + | Hemoglobin | 15.5 | 11.5 - 16.0 | [facility] | | | | | g/dL | [facility] | | | | | | MEDICAL | | | | | | CENTER - | | | | | | LABORATORY | | + + + + + + | Hematocrit | 47.1 (H) | 34.0 - 47.0 % | [facility] | | | | | | [facility] | | | | | | MEDICAL | | | | | | CENTER - | | | | | | LABORATORY | | + + + + + + | MCV | 94.1 | 83.0 - 101.0 fL | [facility] | | | | | | [facility] | | | | | | MEDICAL | | | | | | CENTER - | | | | | | LABORATORY | | + + + + + + | MCH | 31.0 | 28.0 - 35.0 pg | [facility] | | | | | | [facility] | | | | | | MEDICAL | | | | | | CENTER - | | | | | | LABORATORY | | + + + + + + | MCHC | 32.9 | 32.0 - 36.0 | [facility] | | | | | g/dL | [facility] | | | | | | MEDICAL | | | | | | CENTER - | | | | | | LABORATORY | | + + + + + + | RDW-CV | 13.2 | <15.0 % | [facility] | | | | | | [facility] | | | | | | MEDICAL | | | | | | CENTER - | | | | | | LABORATORY | | + + + + + + | Platelet | 247 | 140 - 440 K/uL | [facility] | | | Count | | | [facility] | | | | | | MEDICAL | | | | | | CENTER - | | | | | | LABORATORY | | + + + + + + | MPV | 9.9 | fL | [facility] | | | | | | [facility] | | | | | | [facility]ICAL | | | | | | CENTER - | | | | | | LABORATORY | | + + + + + + | % | 70.0 | 45.0 - 82.0 % | [facility] | | | Neutrophils | | | [facility] | | | | | | MEDICAL | | | | | | CENTER - | | | | | | LABORATORY | | + + + + + + | % | 17.2 (L) | 20.0 - 45.0 % | [facility] | | | Lymphocytes | | | [facility] | | | | | | MEDICAL | | | | | | CENTER - | | | | | | LABORATORY | | + + + + + + | % Monocytes | 9.9 | 4.0 - 12.0 % | [facility] | | | | | | [facility] | | | | | | MEDICAL | | | | | | CENTER - | | | | | | LABORATORY | | + + + + + + | % | 2.3 | 0.0 - 5.0 % | [facility] | | | Eosinophils | | | [facility] | | | | | | MEDICAL | | | | | | CENTER - | | | | | | LABORATORY | | + + + + + + | % Basophils | 0.6 | 0.0 - 1.0 % | [facility] | | | | | | [facility] | | | | | | MEDICAL | | | | | | CENTER - | | | | | | LABORATORY | | + + + + + + | Absolute | 5.30 | 1.80 - 8.50 | [facility] | | | Neutrophils | | K/uL | [facility] | | | | | | MEDICAL | | | | | | CENTER - | | | | | | LABORATORY | | + + + + + + | Absolute | 1.30 | 0.60 - 3.20 | [facility] | [...] + + + + | Absolute | 0.20 | 0.00 - 0.40 | [facility] | | | Eosinophils | | K/uL | [facility] | | | | | | MEDICAL | | | | | | CENTER - | | | | | | LABORATORY | | + + + + + + | Absolute | 0.00 | 0.00 - 0.10 | [facility] | | | Basophils | | K/uL | [facility] | | | | | [...] [address] | [place] | [phone] | | [facility] | | [address] | | | - LABORATORY | | | | + + + + + TSH (11/12/2015 11:07 AM PST) + + + + + + | Component | Value | Ref Range | Performed | Pathologist | | | | | At | Signature | + + + + + + | TSH | 0.47Comment: All TSH | 0.34 - 5.60 | [facility] | | | | samples are screened | uIU/mL | [facility] | | | | using a [...] + | [facility] | [address] | [place] | [phone] | | [facility] | | [address] | | | - LABORATORY | | | | + + + + + Lipid Panel (11/12/2015 11:07 AM PST) + + + + + + | Component | Value | Ref Range | Performed | Pathologist | | | | | At | Signature | + + + + + + | Triglycerid | 170 (H) | 35 - 160 mg/dL | [facility] | | | es | | | [facility] | | | | | | MEDICAL | | | | | | CENTER - | | | | | | LABORATORY | | + + + + + + | Cholesterol | 147 | 140 - 200 mg/dL | [facility] | | | | | | [facility] | | | | | | MEDICAL | | | | | | CENTER - | | | | | | LABORATORY | | + + + + + + | HDL | 34Comment: New HDL | 28 - 83 mg/dL | [facility] | | | | Reference Range as of | | [facility] | | | | May 26, 2015 | | MEDICAL | | | | Values may be 10-20% | | CENTER - | | | | lower with new, | | LABORATORY | | | | standardized method. | | | | + + + + + + | Chol/HDL | 4.3 | | [facility] | | | Ratio | | | [facility] | | | | | | MEDICAL | | | | | | CENTER - | | | | | | LABORATORY | | + + + + + + | LDL, | 79 | <=130 mg/dL | [facility] | | | Calculated | | | [facility] | | | [...] [address] | [place] | [phone] | | [facility] | | [address] | | | - LABORATORY | | | | + + + + + Comprehensive Metabolic Panel (11/12/2015 11:07 AM PST) + + + + + + | Component | Value | Ref Range | Performed | Pathologist | | | | | At | Signature | + + + + + + | Na | 140 | 136 - 149 | [facility] | [...] + + + + | Cl | 103 | 98 - 109 mmol/L | [facility] | | | | | [facility] | | | [facility] | [facility] | | | | | | C[facility] - | | | | | | LABORATORY | | + + + + + + | CO2 | 29 | 24 - 31 mmol/L | [facility] [...] + + + + | BUN | 6 (L) | 7 - 18 mg/dL | [facility] | | | | | | [facility] | [facility] | | | | | | C[facility] - | | | | | | LABORATORY | | + + + + + + | Creatinine | 0.63 | 0.60 - 1.30 | [facility] | | | | | mg/dL | [facility] | | | | | | MEDICAL | | | | | | CENTER - | | | | | | LABORATORY | | + + + + + + | eGFR, | >60Comment: GLOMERULAR | >=60 | [facility] | | | non- | FILTRATION | mL/min/1.73m2 | [facility] | | | [place] | RATE,ESTIMATED | | MEDICAL | | | | mL/min/1.57m8Fawx than | | CENTER - | | [...] + + + + | Calcium | 9.1 | 8.3 - 10.5 | [facility] | [...] + + + + | Bilirubin | 0.7 | 0.1 - 1.5 mg/dL | [facility] | | | Total | | | [facility] | | | | | | MEDICAL | | | | | | CENTER - | | | | | | LABORATORY | | + + + + + + | Total | 6.4 | 6.0 - 7.8 g/dL | [facility] | | | Protein | | | [facility] | | | | | | [facility]ICAL | | | | | | CENTER - | | | | | | LABORATORY | | + + + + + + | AST | 25 | 10 - 42 U/L | [facility] | | | | | | [facility] | | | | | | [facility] | | | | | | CENTER - | | | | | | LABORATORY | | + + + + + + | ALT | 52 (H) | 6 - 45 U/L | [facility] | | | | | | [facility] | | | | | | [facility]ICAL | | | | | | CENTER - | | | | | | LABORATORY | | + + + + + + | Alkaline | 56 | 40 - 110 U/L | [facility] | | | Phosphatase | | | [facility] | | | | | | MEDICAL | | | | | | CENTER - | | | | | | LABORATORY | | + + + + + + | Globulin | 2.5 | g/dL | [facility] | | | | | | [facility] | | | | | | [facility]ICAL | | | | | | CENTER - | | | | | | LABORATORY | | + + + + + + | Albumin/Lynn | 1.6 | | [facility] | | | bulin Ratio | | | [facility] | | | | | | MEDICAL | | | | | | CENTER - | | | | | | LABORATORY | | + + + + + + | BUN/Creatin | 9.5 | | [facility] | | | ine [...] ST. | [address] | [place] | [phone] | | [facility] | | [address] | | | - LABORATORY | | | | + + + + + Hemoglobin A1C (11/12/2015 11:07 AM PST) + +-------+ + + + | Component | Value | Ref Range | Performed | Pathologist | | | | | At | Signature | + +-------+ + + + | Hemoglobin | 5.8 | 4.3 - 6.0 % | [facility] | | | A1c | | | [facility] | | | | | | MEDICAL | | | | | | CENTER - | | | | | | LABORATORY | | + +-------+ + + + | Estimated | 120 | mg/dL | [facility] | | | [...] + | [facility] | [address] | [place] | [phone] | | [facility] | | [address] | | | - LABORATORY | | | | + + + + + documented in this encounter Visit Diagnoses + + | Diagnosis | + + | Preventative health care - Primary Routine general medical examination at a health | | care facility | + + | Hypothyroidism, unspecified hypothyroidism type | + + | Gestational diabetes mellitus, delivered | + + | Abnormal glucose Other abnormal glucose | + + | Chronic low back pain Lumbago | + + | Left upper quadrant pain Abdominal pain, left upper quadrant | + + | Encounter for contraceptive management, unspecified encounter | + + | Tobacco abuse Tobacco use disorder | + + documented in this encounter
--- OUTSIDE RECORDS SUMMARY | ~2020-05-24 | XMS | Encounter Summary ---
Demographics + + + | Address | [facility] | | | [place] [address] | + + + | Home Phone | | + + + | Preferred Language | Unknown | + + + | Marital Status | Single | + + + | Temple Affiliation | 1041 | + + + | Race | Unknown | + + + | Ethnic Group | or | + + + Author + + + | Author | [facility] | | | and [place] | + + + | Organization | [facility] | | | and [place] [...] [place], [place] | | | | | [address] | | + + + + + | Amy Schneider | ECON | [address] | | | | | [place], [place] | | | | | [address] | | + + + + + | Alisha Schneider | ECON | Unknown | | + + + + + Care Team Providers + +------+ + | Care Legislators Name | Role | Phone | + [...] + + | Closed | Specialty | Endocrinology | Diagnoses | Ritu, | Leena, | | | Services | | | Jet Dempsey MD | Heriberto Valadez, | | | Required | | Hypothyroidi | [address] | PhD [address] | | | | | sm, | [address] [place] | [address] | | | | | unspecified | [place] | [place], | | | | | type | [address] | [place] [address] | | | | | | Phone: | Phone: | | | | | | [phone] | [phone] | | | | | | Fax: | Fax: | | | | | | [phone] | [phone] | +--------+ + + + + + Reason for Visit + +--------+ + | Reason | Onset | Comments | | | Date | | + +--------+ + | Referral | 01/20/ | | | | 2018 | | + +--------+ + Encounter Details +--------+ + + + + | Date | Type | Department | Care Team | Description | +--------+ + + + + | 01/20/ | Telephone | [facility] | Jet Chaney, | Referral | | 2018 | | [facility] [place] | [address] | | | | | [address] | [place] | | | | | [place] | [address] | | | | | [address] | | | | | | [phone] | | | +--------+ + + + [...] Telephone Encounter - Tamar Lugo RN - 01/20/2018 4:20 PM PDTPatient called [facility] en docrinology for appointment, but they have not received a referral yet. Looks like referral was sent to [facility] endocrinology, but [facility] does accept patient's insurance and patient would prefer to go there if possible. New referral entered to [facility]. 4 :24 PM PDTdocumented in this encounter Plan of Treatment + + +--------+ + + | Name | Type | Priori | Associated Diagnoses | Order Schedule | | | | ty | | | + + +--------+ + + | Endocrinology, | Outpatient | Routin | Hypothyroidism, | Ordered: 01/20/2018 | | External - AMB | Referral | e | unspecified type | | | Referral | | | | | + + +--------+ + + documented as of this encounter Visit Diagnoses + + | Diagnosis | + + | Hypothyroidism, unspecified type - Primary | + + documented in this encounter"
--- OUTSIDE RECORDS SUMMARY | ~2020-05-24 | XMS | Encounter Summary ---
Demographics + + + | Address | [facility] | | | [place] [address] | + + + | Home Phone | | + + + | Preferred Language | Unknown | + + + | Marital Status | Single | + + + | Bahai Affiliation | 1041 | + + + | Race | Unknown | + + + | Ethnic Group | or | + + + Author + + + | Author | [facility] | | | and [place] | + + + | Organization | [facility] | | [...] [place], [place] | | | | | [address] | | + + + + + | Amy Schneider | ECON | [address] | | | | | [place], [place] | | | | | [address] | | + + + + + | Alisha Schneider | ECON | Unknown | | + + + + + Care Team Providers + +------+ + | Care Training Technician Name | Role | Phone | [...] | [address] | [address], | | | | | pain | [address] [place] | [address] | | | | | | [place], [place] | [place], | | | | | | [address] | [place] [address] | | | | | | Phone: | Phone: | | | | | | [phone] | [phone] | | | | | | Fax: | Fax: | | | | | | [phone] | [phone] | +--------+ + + + + + Evaluate & Treat (Routine) +--------+ + + + + + | Status | Reason | Specialty | Diagnoses / | Referred By | Referred To | | | | | Procedures | Contact | Contact | +--------+ + + + + + | Closed | Specialty | Nutrition | Diagnoses | Ritu | Nancy | | | Services | | Prediabetes | Jet Dempsey MD | Nutrition | | | Required | | | [address] | Services [address] | | | | | | [address] | [address] | | | | | | [place] | [place], | | | | | | [address] | [place] [address] | | | | | | Phone: | Phone: | | | | | | [phone] | [phone] | | | | | | Fax: | Fax: | | | | | | [phone] | [phone] | +--------+ + + + + + Evaluate & Treat (Routine) +--------+ + + + + + | Status | Reason | Specialty | Diagnoses / | Referred By | Referred To | | | | | Procedures | Contact | Contact | +--------+ + + + + + | Closed | Specialty | Physical | Diagnoses | Ritu, | Eloy Moore | | | Services | Medicine and | Chronic | Jet Dempsey MD | Gallo Yusuf MD [address] | | | Required | Rehabilitatio | midline low | [address] | [address] | | | | n | back pain | [address]VE [place] | [place], | | | | | without | [place], [place] | [place] [address] | | | | | sciatica | [address] | Phone: | | | | | Cervical | Phone: | [phone] | | | | | radicular | [phone] | Fax: | | | | | pain | Fax: | [phone] | | | | | | [phone] | | +--------+ + + + + + Reason for Visit + + + | Reason | Comments | + + + | Back Pain | | + + + | Results | | + + + | Numbness | | + + + | Neck Pain | | + + + Encounter Details +--------+---------+ + + + | Date | Type | Department | Care Team | Description | +--------+---------+ + + + | 03/02/ | Office | [facility] | Jet Chaney, | Chronic midline low | | 2016 | Visit | [facility] [place] | [address] | back pain without | | | | [address] | [place], [place] | sciatica (Primary | | | | [place], [place] | [address] | Dx); Cervical | | | | [address] | | radicular pain; | | | | [phone] | | Chest wall pain; | | | | | | Prediabetes; Chronic | | | | | | abdominal pain; | | | | | | Gastritis; Tobacco | | | | | | abuse; BMI | | | | | | 38.0-38.9,adult | +--------+---------+ + + + Social History [...] + + + | Blood Pressure | 128/84 | 03/02/2016 3:08 PM | | | | | PDT | | + + + + + | Pulse | 76 | 03/02/2016 3:08 PM | | | | | PDT | | + + + + + | Temperature | 36.8 C (98.3 F) | 03/02/2016 3:08 PM | | | | | PDT | | + + + + + | Respiratory Rate | 16 | 03/02/2016 3:08 PM | | | | | PDT | | + + + + + | Oxygen Saturation | 98% | 03/02/2016 3:08 PM | | | | | PDT | | + + + + + | Inhaled Oxygen | - | - | | | Concentration | | | | + + + + + | Weight | 94.6 kg (208 lb 8 | 03/02/2016 3:08 PM | | | | oz) | PDT | | + + + + + | Height | 157.5 cm (5' 2") | 03/02/2016 3:08 PM | | | | | PDT | | + + + + + | Body Mass Index | 38.14 | 03/02/2016 3:08 PM | | | | | PDT | | + + + + + documented in this encounter Patient Instructions Patient Instructions Jet Chaney MD - 03/02/2016 4:17 PM PDTBP 128/84 mmHg | Pulse 7 6 | Temp(Src) 36.8 C (98.3 F) (Temporal) | Resp 16 | Ht 1.575 m (5' 2") | Wt 94.575 kg ( 208 lb 8 oz) | BMI 38.13 kg/m2 | SpO2 98% Your blood sugars are very close to diabetes. Please meet with the shop assistant. If you d o not hear from her office by Saturday, please call my office. If you do not hear from the physiatry office by regarding your chronic neck and ba ck pain, please call my office. If you do not hear from the gastroenterology office by regarding your abdominal pa in, please call my office. documented in this encounter Progress Notes Jet Chaney MD - 03/02/2016 3:59 PM PDTFormatting of this note might be different fr om the original. Subjective: Patient ID: Baudilio Schneider is a 35 y.o. female here for back pain, chest tenderness, neck pa in. 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 HPI She is taking nortriptyline 25 mg nightly. She is not sure if it has helped. She continue s to have daily low back pain but PT has been helpful. It does not radiate. Fluctuates bet ween 2-7/10, currently 2/10. Worse with laying flat or bending over at waist. She takes ib uprofen 600 mg two times per week and it does help. No fever, saddle paresthesias, leg par esthesias, bowel/bladder dysfunction, dysuria, hematuria. She occasionally gets pain "it just hurts" in the left side of her neck radiating down her left arm. Pain rates 3-6/10, currently 4/10. Occasionally she has numbness along left side of face and neck. Symptoms last hours. Nothing makes it worse. She does not take anythin g for it. Comes and goes on its own. Her upper mid chest is tender to touch for the last year. Comes and goes randomly. Feels like a bruise. The vision of her left eye is occasionally blurry and eye feels warm, red and watery. This happens ~once per day. Eye drops help - she is not sure of the name. She continues to have bilateral UQ pain for over 6 months. Does not radiate. Now she stat es it is worse with eating and drinking - makes her feel bloated. She is taking omeprazole 20 mg daily other than occasional missed dose. She does not feel like it has helped. She h as a BM ever other day, not hard. Not associated with fever, N/V, diarrhea. She continues to smoke Patient's medications, allergies, past medical, surgical, social and family histories were obtained and reviewed as appropriate. Review of Systems See HPI BP 128/84 mmHg | Pulse 76 | Temp(Src) 36.8 C (98.3 F) (Temporal) | Resp 16 | Ht 1.575 m (5' 2") | Wt 94.575 kg (208 lb 8 oz) | BMI 38.13 kg/m2 | SpO2 98% Objective: Physical Exam Constitutional: She is oriented to person, place, and time. Pleasant, obese, NAD Neck: Normal range of motion. Neck supple. No thyromegaly present. Mild left trapezius tenderness Cardiovascular: Normal rate, regular rhythm, normal heart sounds and intact distal pulses. Exam reveals no gallop and no friction rub. No murmur heard. Pulmonary/Chest: Breath sounds normal. No respiratory distress. She has no wheezes. She has no rales. She exhibits tenderness (very mild left sternal chest wall tenderness). Abdominal: Soft. She exhibits no distension and no mass. There is no tenderness. There is n o rebound and no guarding. Musculoskeletal: She exhibits no edema. Symmetric 5/5 strength with shoulder abduction, flex; elbow flex/ext, retail client manager, finger abductio n 5/5 knee flex/ext Lymphadenopathy: She has no cervical adenopathy. Neurological: She is alert and oriented to person, place, and time. No cranial nerve defici t. Biceps, triceps, brachioradialis, patella 1+ symmetric DTRs Sensation intact to light touch in [facility] Outpatient Visit on 02/25/2016 Component Date Value Ref Range Status NA 02/25/2016 139 136-149 mmol/L Final K 02/25/2016 4.0 3.5-5.1 mmol/L Final CL 02/25/2016 104 98-109 mmol/L Final CO2 02/25/2016 27 24-31 mmol/L Final ANION GAP 02/25/2016 8 3-16 mmol/L Final GLUCOSE 02/25/2016 105 70-109 mg/dL Final BUN 02/25/2016 11 7-18 mg/dL Final Creatinine, Serum/Plasma 02/25/2016 0.63 0.60-1.30 mg/dL Final eGFR if not 02/25/2016 >60 >=60 mL/min/1.73m2 Final GLOMERULAR FILTRATION RATE,ESTIMATED mL/min/1.73m2 Less than 60 Chronic kidney disease,if found over a 3-month period. Less than 15 Kidney failure For Americans,multiply the calculated GFR by 1.21. CALCIUM 02/25/2016 8.9 8.3-10.5 mg/dL Final ALBUMIN 02/25/2016 3.9 3.2-5.0 g/dL Final BILIRUBIN TOTAL 02/25/2016 0.8 0.1-1.5 mg/dL Final Total protein 02/25/2016 6.6 6.0-7.8 g/dL Final AST 02/25/2016 7* 10-42 U/L Final ALT 02/25/2016 46* 6-45 U/L Final ALK PHOS 02/25/2016 63 40-110 U/L Final GLOBULIN 02/25/2016 2.7 2.1-3.8 g/dL Final Albumin/Globulin ratio 02/25/2016 1.4 0.8-2.0 Final BUN/CREA 02/25/2016 17.5 Final Hemoglobin A1c 02/25/2016 6.4* 4.3-6.0 % Final Estimated Average Glucose 02/25/2016 137 Final FERRITIN 02/25/2016 56 11-<307 ng/mL Final IRON 02/25/2016 121 40-150 ug/dL Final TRANSFERRIN 02/25/2016 241.0 240.0-480.0 mg/dL Final TIBC 02/25/2016 337 235-425 ug/dL Final % SATURATION 02/25/2016 35.9 20.0-55.0 % Final Assessment: Baudilio was seen today for back pain, results, numbness and neck pain. 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 She would appreciate seeing a specialist - Continue PT - Continue to work on weight loss - Continue nortriptyline 25 mg. She was not interested in increasing dose - Consider SNRI - Appreciate physiatry's evaluation and recommendations - Educated on warning signs Orders: - nortriptyline (PAMELOR) 25 mg capsule; Take 1 capsule by mouth nightly. To help preve nt back pain. - * [facility] Physiatry - AMB Referral Cervical radicular pain: Benign exam without red flag s/s - Continue nortriptyline - Appreciate physiatry's evaluation and recommendations Orders: - * [facility] Physiatry - AMB Referral Chest wall pain: No concerning symptoms or signs - Educated on warning signs Prediabetes: A1c very close to diabetes. Will benefit from nutritional consult. If insur jose denies, will schedule with RN care coordination manager. Orders: - * [facility] Nutrition Services - AMB Referral Chronic abdominal pain: Suspect multifactorial - abdominal wall pain and gastritis. No re d flag s/s. EGD 09/2013 h.pylori biopsy came back negative, esophagus biopsy came back negat ashok. GI recommended repeat egd in approx 3 years time. Due to her symptoms she would appre ciate re-evaluation sooner. - Increase omeprazole to 40 mg - GERD lifestyle control reviewed Orders: - * [facility] Gastroenterology - [facility] Referral - omeprazole (PRILOSEC) 40 MG capsule; Take 1 capsule by mouth every morning (before br eakfast). To help abdominal pain Tobacco abuse - Advised to quit BMI 38.0-38.9,adult - Weight loss advised and reviewed Return in about 6 weeks (around 04/13/2016). Prashanth Chaney MD Kemi Jaime LP N - 03/02/2016 3:08 PM PDTPatient is here for a back pain and lab results follow-up. She al so states that when she presses on her chest it hurts like a bruise and also pain in the lef t side of her neck that radiates down her arm with numbness in her left cheek and into her l eft eye. documented i n this encounter Plan of Treatment + + +--------+ + + | Name | Type | Priori | Associated Diagnoses | Order Schedule | | | | ty | | | + + +--------+ + + | * [facility] | Outpatient | Routin | Chronic Midline | Ordered: 03/02/2016 | | Physiatry - AMB | Referral | e | Low Back Pain | | | Referral | | | Without Sciatica | | | | | | Cervical radicular | | | | | | pain | | + + +--------+ + + | * [facility] | Outpatient | Routin | Prediabetes | Ordered: 03/02/2016 | | Services - AMB | Referral | e | | | | Referral | | | | | + + +--------+ + + | * [facility] | Outpatient | Routin | Chronic abdominal | Ordered: 03/02/2016 | | Gastroenterology - | Referral | e | pain | | | AMB Referral | | | | | + + +--------+ + + documented as of this encounter Visit Diagnoses + + | Diagnosis | + + | Chronic midline low back pain without sciatica - Primary | + + | Cervical radicular pain Brachial neuritis or radiculitis nos | + + | Chest wall pain Painful respiration | + + | Prediabetes Other abnormal glucose | + + | Chronic abdominal pain Abdominal pain, unspecified site | + + | Gastritis Unspecified gastritis and gastroduodenitis without mention of hemorrhage | + + | Tobacco abuse Tobacco use disorder | + + | BMI 38.0-38.9,adult Body Mass Index 38.0-38.9, adult | + + documented in this encounter
--- OUTSIDE RECORDS SUMMARY | ~2020-05-24 | XMS | Encounter Summary ---
Demographics + + + | Address | [address] | | | [place] [address] | + + + | Home Phone [...] | Organization | [facility] | | | and [...] [place], [place] | | | | | [address] | | + + + + + | Amy Schneider | ECON | [address] | | | | | [place], [place] | | | | | [address] | | + + + + + | Alisha Schneider | ECON | Unknown | | + + + + + Care Team Providers + +------+ + | Care Logistics Planning Engineer Name | Role | Phone | + +------+ + PCP | Unavailable | + +------+ + Encounter Details +--------+ + + + + | Date | Type | Department | Care Team | Description | +--------+ + + + + | 11/20/ | Hospital | [facility] | Shane Hu MD | | | 2002 | Encounter | [facility] | [address] | | | | | [address] [place] | [place] | | | | | [place] | [id number] | | | | | [address] | | | | | | [phone] | | | +--------+ + + + [...]
--- OUTSIDE RECORDS SUMMARY | ~2020-05-24 | XMS | Encounter Summary ---
Demographics + + + | Address | [facility] [address] | | | [place] [address] | + + + | Home Phone | | + + + | Preferred Language | Unknown | + + + | Marital Status | Single | + + + | Church Affiliation | 1041 | + + + | Race | Unknown | + + + | Ethnic Group | or | + + + Author + + + | Author | [facility] | | | and [place] | + + + | Organization | [facility] [...] [place], [place] | | | | | [address] | | + + + + + | Amy Schneider | ECON | [address] | | | | | [place], [place] | | | | | [address] | | + + + + + | Alisha Schneider | ECON | Unknown | | + + + + + Care Team Providers + +------+ + | Care Manager Cardiovascular Name | Role | Phone | + +------+ + | Jet Chaney MD | PCP | | + +------+ + Reason for Visit + + + | Reason | Comments | + + + | Pain Management | B SI Joint 02/16/2020 | + + + Encounter Details +--------+ + + + + | Date | Type | Department | Care Team | Description | +--------+ + + + + | 03/22/ | Documentati | [facility] | Vi Noguera | Pain Management ( | 2019 | on | PHYSIATRY [address] | [address]ULITA [address] | [facility] 02/16/2020) | | | | [facility] [address] | [facility] | | | | | [place] | [address] [place] [address] | | | | | [address] | [address] | | | | | [phone] | | | +--------+ + + + [...]
--- OUTSIDE RECORDS SUMMARY | ~2020-05-24 | XMS | Encounter Summary ---
Demographics + + + | Address | [facility] | | | [place] [address] | + + + | Home Phone [...] + | Organization | [facility] | | | and [...] [place], [place] | | | | | [address] | | + + + + + | Amy Schneider | ECON | [address] | | | | | [place], [place] | | | | | [address] | | + + + + + | Alisha Schneider | ECON | Unknown | | + + + + + Care Team Providers + +------+ + | Care Glass Engraver Name | Role | Phone | + +------+ + | Jet Chaney MD | PCP | | + +------+ + Encounter Details +--------+ + + + + | Date | Type | Department | Care Team | Description | +--------+ + + + + | 02/23/ | Orders Only | [facility] | Cherelle Stokes, | Dysuria | | 2013 | | [facility] [place] | [employer] [address] | | | | | [address] | [facility] | | | | | [place] | [place] [address] | | | | | [address] | | | | | | [phone] | | | +--------+ + + + [...] + | URINALYSIS, REFLEX | Routin | 02/23/2014 | Dysuria | Results for this | | MICROSCOPIC AND/OR | e | 5:33 PM | | procedure are in the [...] - 1.030 | [facility] | | | [place], | | | [facility] | | [...] + | [facility] | [address] | [place], [place] | [phone] | | [facility] | | [address] | | | - LABORATORY | | | | + + + + + | [facility] | [address] | [place], [place] | | | [facility] | | [address], [facility] | | | - LABORATORY | | | | + + + + + documented in this encounter Visit Diagnoses + + | Diagnosis | + + | Dysuria | + + documented in this encounter"
--- OUTSIDE RECORDS SUMMARY | ~2020-05-24 | XMS | Encounter Summary ---
Demographics + + + | Address | [facility] | | | [place] [address] | + + + | Home Phone | | + + + | Preferred Language | Unknown | + + + | Marital Status | Single | + + + | Advent Affiliation | 1041 | + + + | Race | Unknown | + + + | Ethnic Group | or | + + + Author + + + | Author | [facility] | | | and [place] | + + + | Organization | [facility] [...] [place], [place] | | | | | [address] | | + + + + + | Amy Schneider | ECON | [address] | | | | | [place], [place] | | | | | [address] | | + + + + + | Alisha Schneider | ECON | Unknown | | + + + + + Care Team Providers + +------+ + | Care Rebar Fabricator Name | Role | Phone | + +------+ + PCP | Unavailable | + +------+ + Encounter Details +--------+ + + + + | Date | Type | Department | Care Team | Description | +--------+ + + + + | 01/11/ | Hospital | [facility] | | | | 2009 | Encounter | MED CTR LABORATORY | | | | | | [address] | | | | | | [place] | | | | | | [address] | | | | | | [phone] | | | +--------+ + + + [...]
--- OUTSIDE RECORDS SUMMARY | ~2020-05-24 | XMS | Encounter Summary ---
Demographics + + + | Address | [facility] | | | [place] [address] | + + + | Home Phone | | + + + | Preferred Language | Unknown | + + + | Marital Status | Single | + + + | Roman Catholic Affiliation | 1041 | + + + | Race | Unknown | + + + | Ethnic Group | or | + + + Author + + + | Author | [facility] | | | and [place] | + + + | Organization | [facility] | | | and [...] [place], [place] | | | | | [address] | | + + + + + | Amy Schneider | ECON | [address] | | | | | [place], [place] | | | | | [address] | | + + + + + | Alisha Schneider | ECON | Unknown | | + + + + + Care Team Providers + +------+ + | Care Crew Leader Name | Role | Phone | + +------+ + | Jet Chaney MD | PCP | | + +------+ + Reason for Visit +---------+--------+ + | Reason | Onset | Comments | | | Date | | +---------+--------+ + | Results | 02/23/ | | | | 2014 | | +---------+--------+ + Encounter Details +--------+ + + + + | Date | Type | Department | Care Team | Description | +--------+ + + + + | 02/23/ | Telephone | [facility] | Jet Chaney, | Results | | 2013 | | MEDICINE [place] | [address] | | | | | [address] | [place] | | | | | [place] | [address] | | | | | [address] | | | | | | [phone] | | | +--------+ + + + [...] Telephone Encounter - Kemi Williamson LPN - 02/24/2014 11:12 AM PDTPatient called back an d was notified. She stated that she will try to come in today and do it.Electronically sign ed by Kemi Williamson LPN at 02/24/2014 11:13 AM PDTTelephone Encounter - Kemi Williamson LPN - 02/24/2014 10:45 AM PDTTried calling patient again with no answer.Electronically sign ed by Kemi Williamson LPN at 02/24/2014 10:47 AM PDTTelephone Encounter - Kemi Williamson LPN - 02/24/2014 8:31 AM PDTCalled patient with no answer and unable to leave a message to call back. elephone Encounter - Jet Chaney MD - 02/23/2014 6:39 PM PDTWill you please let Sochil know t hat her urine was not a clean catch. A lot of skin cells in the urine. She needs to provid e another sample. Thanks, Prashanth Chaney MD documented in this [...] - 1.030 | [facility] | | | [place], | | | [facility] | | [...] + | [facility] | [address] | [place] | [phone] | | [facility] | | [address] | | | - LABORATORY | | | | + + + + + | [facility] | [address] | [place] | | | [facility] | | [id number] | | | - LABORATORY | | | | + + + + + documented in this encounter Visit Diagnoses + + | Diagnosis | + + | Dysuria - Primary | + + documented in this encounter"
--- OUTSIDE RECORDS SUMMARY | ~2020-05-24 | XMS | Encounter Summary ---
Demographics + + + | Address | [facility] | | | [place] [address] | + + + | Home Phone [...] + + | Author | [facility] | | | and [place] | + + + | Organization | [facility] | | | and [...] [place], [place] | | | | | [address] | | + + + + + | Amy Schneider | ECON | [address] | | | | | [place], [place] | | | | | [address] | | + + + + + | Alisha Schneider | ECON | Unknown | | + + + + + Care Team Providers + +------+ + | Care Customer Field Representative Name | Role | Phone | + [...] + + | Closed | Specialty | Chiropractic | Diagnoses | Ritu, | [facility] | | | Services | Medicine | Trigger | [place] | [place] [address] | | | Required | | point with | [address] | | | | | back pain | [address] [place] | [place] | | | | | | [place] | [place], [place] | | | | | | [address] | [address] | | | | | | Phone: | Phone: | | | | | | [phone] | [phone] | | | | | | Fax: | Fax: | | | | | | [phone] | [phone] | +--------+ + + + + + Reason for Visit + +--------+ + | Reason | Onset | Comments | | | Date | | + +--------+ + | Referral | 11/13/ | | | | 2019 | | + +--------+ + Encounter Details +--------+ + + + + | Date | Type | Department | Care Team | Description | +--------+ + + + + | 11/13/ | Telephone | [facility] | Jet Chaney, | Referral | | 2019 | | [facility] | [address] | | | | | [address] | [place] | | | | | [place] | [address] | | | | | [address] | | | | | | [phone] | | | +--------+ + + + [...] Telephone Encounter - Tamar Lugo RN - 11/13/2018 3:06 PM PSTReferral pending prov ider's signature. elephone Encounter - Corky Garrett - 11/13/2018 2:18 PM PSTPatient called states s he's needing to fax over a referral to the chiropractor on [address] in [facility][1]. Patient states knows about her back issues. If any questions Call . documented in this encounter Plan of Treatment + + +--------+ + + | Name | Type | Priori | Associated Diagnoses | Order Schedule | | | | ty | | | + + +--------+ + + | Chiropractic, | Outpatient | Routin | Trigger point with | Ordered: 11/13/2018 | | External - AMB | Referral | e | back pain | | | Referral | | | | | + + +--------+ + + documented as of this encounter Visit Diagnoses + + | Diagnosis | + + | Trigger point with back pain - Primary Backache, unspecified | + + documented in this encounter"
--- OUTSIDE RECORDS SUMMARY | ~2020-05-24 | XMS | Encounter Summary ---
Demographics + + + | Address | [facility] | | | [place] [address] | + + + | Home Phone [...] + + + | Author | [facility] | | | and [place] | + + + | Organization | [facility] | | | [...] [place], [place] | | | | | [address] | | + + + + + | Amy Schneider | ECON | [address] | | | | | [place], [place] | | | | | [address] | | + + + + + | Alisha Schneider | ECON | Unknown | | + + + + + Care Team Providers + +------+ + | Care Ship Mate Name | Role | Phone | + +------+ + PCP | Unavailable | + +------+ + Encounter Details +--------+ + + + + | Date | Type | Department | Care Team | Description | +--------+ + + + + | 02/10/ | Hospital | [facility] | | | | 2000 | Encounter | MED CTR EMERGENCY | | | | | | [place] [address] | | | | | | [place] | | | | | | [address] | | | | | | [phone] | | | +--------+ + + + [...]
--- OUTSIDE RECORDS SUMMARY | ~2020-05-24 | XMS | Encounter Summary ---
Demographics + + + | Address | [facility] | | | [place] [address] | + + + | Home Phone | | + + + | Preferred Language | Unknown | + + + | Marital Status | Single | + + + | Gnosticism Affiliation | 1041 | + + + | Race | Unknown | + + + | Ethnic Group | or | + + + Author + + + | Author | [facility] | | | and [place] | + + + | Organization | [facility] | | | and [...] [place], [place] | | | | | [address] | | + + + + + | Amy Schneider | ECON | [address] | | | | | [place], [place] | | | | | [address] | | + + + + + | Alisha Schneider | ECON | Unknown | | + + + + + Care Team Providers + +------+ + | Care Knitting Machine Operator Name | Role | Phone | + +------+ + | Zen Chaney MD | PCP | | + +------+ + Reason for Visit + +--------+ + | Reason | Onset | Comments | | | Date | | + +--------+ + | Follow-up | 02/04/ | | | | 2013 | | + +--------+ + Encounter Details +--------+ + + + + | Date | Type | Department | Care Team | Description | +--------+ + + + + | 02/04/ | Telephone | [facility] | Zen Chaney, | Follow-up | | 2013 | | MEDICINE [place] | [address] | | | | | [address] | [place] | | | | | [place] | [address] | | | | | [address] | | | | | | [phone] | | | +--------+ + + + [...] encounter Miscellaneous Notes Telephone Encounter - Rosalina Chaudhry RN - 02/04/2014 9:44 AM PDTSpoke with patient, she has been taking the omeprazole daily, says this helps her abd pain. She says the Amitri ptyline has helped her back pain a little, but it still having some pain. Says she has a CT done today Scheduled appointment for 02/23 at 4:30 -- will call sooner if she has problems El ectronically signed by Rosalina Chaudhry RN at 02/04/2014 9:51 AM PDTTelephone Encounter - Rosalina Chaudhry RN - 02/04/2014 9:43 AM PDTMessage copied by ROSALINA CHAUDHRY on SatFebruary 04, 2014 0943 ------ Message from: ZEN CHANEY Created: SatJanuary 25, 2014 1817 Regarding: amitriptyline Will you please call Sochil and see if she is tolerating amitriptyline. Also make brooke e she is taking omeprazole daily. She should have a follow-up appointment with me ~4 weeks after 01/25/2014. If she has not scheduled follow-up, will you please help her schedule an appointment. Thanks! Prashanth Chaney MD Note: this is a future dated email. Please review chart prior to contacting patient t o make sure nothing substantial has changed or that this is not a redundant request. Let me know if you have any questions or concerns. Thanks. documented i n this encounter Plan of Treatment Not on filedocumented as of this encounter Visit Diagnoses Not on filedocumented in this encounter"
--- OUTSIDE RECORDS SUMMARY | ~2020-05-24 | XMS | Encounter Summary ---
Demographics + + + | Address | [facility] | | | [place] [address] | + + + | Home Phone | | + + + | Preferred Language | Unknown | + + + | Marital Status | Single | + + + | Voodoo Affiliation | 1041 | + + + | Race | Unknown | + + + | Ethnic Group | or | + + + Author + + + | Author | [facility] | | | and [place] | + + + | Organization | [facility] | | [...] [place], [place] | | | | | [address] | | + + + + + | Amy Schneider | ECON | [address] | | | | | [place], [place] | | | | | [address] | | + + + + + | Alisha Schneider | ECON | Unknown | | + + + + + Care Team Providers + +------+ + | Care Cellophane Casting Machine Repairer Name | Role | Phone | + +------+ + | Jet Chaney MD | PCP | | + +------+ + Reason for Visit +---------+--------+ + | Reason | Onset | Comments | | | Date | | +---------+--------+ + | Results | 06/30/ | | | | 2015 | | +---------+--------+ + Encounter Details +--------+ + + + + | Date | Type | Department | Care Team | Description | +--------+ + + + + | 06/30/ | Telephone | [facility] | Jet Chaney, | Results | | 2014 | | MEDICINE [place] | [address] | | | | | [address] | [place] | | | | | [place] | [address] | | | | | [address] | | | | | | [phone] | | | +--------+ + + + [...] Telephone Encounter - Kemi Williamson LPN - 07/01/2015 1:46 PM PDTCalled patient and not ified her. Patient verbalized understanding. elephone Encounter - Kemi Williamson LPN - 06/30/2015 5:39 PM PDTCalled patient and left a message to call back. elephone Encounter - Jet Chaney MD - 06/30/2015 5:37 PM PDTWill you please let Sochil know that her CT scan was good. Her lung nodule has not changed. This means it is likely benign - not a ca ncer. She no longer needs to repeat CT scans. The best thing she can do for her health is not smoke. Prashanht Chaney MD documented in this e ncounter Plan of Treatment Not on filedocumented as of this encounter Visit Diagnoses + + | Diagnosis | + + | Incidental lung nodule, > 3mm and < 8mm - Primary Solitary pulmonary nodule | + + documented in this encounter"
--- OUTSIDE RECORDS SUMMARY | ~2020-05-24 | XMS | Encounter Summary ---
Demographics + + + | Address | [facility] | | | [place] [address] | + + + | Home Phone | | + + + | Preferred Language | Unknown | + + + | Marital Status | Single | + + + | Protestant Affiliation | 1041 | + + + | Race | Unknown | + + + | Ethnic Group | or | + + + Author + + + | Author | [facility] | | | and [place] | + + + | Organization | [facility] | | | and [...] [place], [place] | | | | | [address] | | + + + + + | Amy Schneider | ECON | [address] | | | | | [place], [place] | | | | | [address] | | + + + + + | Alisha Schneider | ECON | Unknown | | + + + + + Care Team Providers + +------+ + | Care Deburrer Machine Name | Role | Phone | + +------+ + PCP | Unavailable | + +------+ + Encounter Details +--------+ + + + + | Date | Type | Department | Care Team | Description | +--------+ + + + + | 06/19/ | Hospital | [facility] | | | | 2001 | Encounter | MED CTR EMERGENCY | | | | | | [place] [address] | | | | | | [place] | | | | | | [address] | | | | | | [phone] | | | +--------+ + + + [...]
--- OUTSIDE RECORDS SUMMARY | ~2020-05-24 | XMS | Encounter Summary ---
Demographics + + + | Address | [facility] | | | [place] [address] | + + + | Home Phone | | + + + | Preferred Language | Unknown | + + + | Marital Status | Single | + + + | Shinto Affiliation | 1041 | + + + | Race | Unknown | + + + | Ethnic Group | or | + + + Author + + + | Author | [facility] | | | and [place] | + + + | Organization | [facility] | | | and [...] [place], [place] | | | | | [address] | | + + + + + | Amy Schneider | ECON | [address] | | | | | [place], [place] | | | | | [address] | | + + + + + | Alisha Schneider | ECON | Unknown | | + + + + + Care Team Providers + +------+ + | Care Solar Thermal Technician Name | Role | Phone | + +------+ + | Jet Chaney MD | PCP | | + +------+ + Reason for Referral Diagnostic/Screening (Routine) +--------+--------+ + + + + | Status | Reason | Specialty | Diagnoses / | Referred By | Referred To | | | | | Procedures | Contact | Contact | +--------+--------+ + + + + | Denied | | Radiology | Diagnoses | Ritu, | [address] | | | | | Kidney | Jet Dempsey MD | [address] | | | | | stone | [address] | [place], | | | | | Procedures | [place] | [place] [address] | | | | | CT Urogram w | [place], [place] | Phone: | | | | | wo Contrast | [address] | [phone] | | | | | | Phone: | Fax: | | | | | | [phone] | [phone] | | | | | | Fax: | | | | | | | [phone] | | +--------+--------+ + + + + Reason for Visit +---------+--------+ + | Reason | Onset | Comments | | | Date | | +---------+--------+ + | Results | 01/09/ | | | | 2018 | | +---------+--------+ + Encounter Details +--------+ + + + + | Date | Type | Department | Care Team | Description | +--------+ + + + + | 01/09/ | Telephone | [facility] | Jet Chaney, | Results | | 2018 | | MEDICINE [place] | [address] | | | | | [address] | [place] | | | | | [place] | [address] | | | | | [address] | | | | | | [phone] | | | +--------+ + + + [...] Telephone Encounter - Tamar Lugo RN - 01/16/2018 3:41 PM PDTPatient has 2-week fo llow up with 01/24, but scheduled nurse visit at 4:30 today. Unsure if BP check was neede d urgently. elepho ne Encounter - Nabor Nixon RN - 01/16/2018 9:16 AM PDTLeft message for patient to return call CT still pending, need to set up nurse visit for bp check. *patient has 2 open phone notes for separate issues. elephone Encounter - Lydia Haque Cert MA - 01/15/2018 11: 43 AM PDTCT Urogram has been ordered, waiting for approval. elephone Encounter - Med Hu ARNP - 01/09 5:45 PM PDTCall to Sochil. Xray of her abdomen shows moderate constipation so recomme nd she take the miralax for that. There were also some small, probable kidney stones. CT urogram ordered. Says she is feeling well now. Denies flank plain, fever, n/v. Advised to contact us should she develop new or worsening symptoms. Patient verbalizes understanding. Please help Sochil schedule CT when it has been approved. Please also help her schedule marybeth se visit for bp check. Thanks much, Grayhyacinthn elephone Jennifer Barrios CMA - 01/09/2018 5:10 PM PDTPer Med she would like for rosenda ent to come in for nurse visit to check blood pressure. Pt seen today for abdominal issues b ut noticed blood pressure was elevated. Called patient and left message. Electronically sign ed by Jennifer Anguiano CMA at 01/09/2018 5:13 PM PDTdocumented in this encounter Plan of Treatment + +---------+--------+ + + | Name | Type | Priori | Associated Diagnoses | Order Schedule | | | | ty | | | + +---------+--------+ + + | CT Urogram w wo | Imaging | Routin | Kidney stone | Expected: | | Contrast | | e | | 01/15/2018, Expires: | | | | | | 01/15/2019 | + +---------+--------+ + + documented as of this encounter Visit Diagnoses + + | Diagnosis | + + | Kidney stone - Primary Calculus of kidney | + + documented in this encounter"
--- OUTSIDE RECORDS SUMMARY | ~2020-05-24 | XMS | Encounter Summary ---
Demographics + + + | Address | [facility] | | | [place] [address] | + + + | Home Phone [...] + | Organization | [facility] | [...] [place], [place] | | | | | [address] | | + + + + + | Amy Schneider | ECON | [address] | | | | | [place], [place] | | | | | [address] | | + + + + + | Alisha Schneider | ECON | Unknown | | + + + + + Care Team Providers + +------+ + | Care Auto Mechanics Instructor Name | Role | Phone | [...] | | Jet Dempsey MD | [address] | | | | | Nephrolithia | [address] | [place], | | | | | sis | [place] | [place] [address] | | | | | Procedures | [place], [place] | Phone: | | | | | CT Abdomen | [address] | [phone] | | | | | Pelvis wo | Phone: | Fax: | | | | | Contrast | [phone] | [phone] | | | | | | Fax: | | | | | | | [phone] | | +--------+--------+ + + + + [...] | | Jet Dempsey MD | [address] | | | | | Nephrolithia | [address] | [place], | | | | | sis | [place] | [place] [address] | | | | | Procedures | [place], [place] | Phone: | | | | | CT Abdomen | [address] | [phone] | | | | | Pelvis wo | Phone: | Fax: | | | | | Contrast | [phone] | [phone] | | | | | | Fax: | | | | | | | [phone] | | +--------+--------+ + + + + Encounter Details +--------+ + + + + | Date | Type | Department | Care Team | Description | +--------+ + + + + | 02/24/ | [facility] | [facility] | Jet Chaney, | Nephrolithiasis | | 2018 | Encounter | MED CTR [address] | [address] | | | | | [place], | [place], [place] | | | | | [place] [address] | [id number] | | | | | [phone] | | | +--------+ + + + [...] | + +--------+ + + + | CT ABDOMEN PELVIS WO | Routin | 02/24/2018 | Nephrolithiasis | Results for this | | CONTRAST | e | 4:35 PM | | procedure are in the | | | | PDT | | results section. | + +--------+ + + + documented in this encounter Results CT Abdomen Pelvis wo [...] | Diagnosis | + + | Nephrolithiasis Calculus of kidney | + + documented in this encounter"
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
--- OUTSIDE RECORDS SUMMARY | ~2020-05-24 | XMS | Encounter Summary ---
Demographics + + + | Address | [facility] | | | [place] [address] | + + + | Home Phone [...] + | Organization | [facility] [...] [place], [place] | | | | | [address] | | + + + + + | Amy Schneider | ECON | [address] | | | | | [place], [place] | | | | | [address] | | + + + + + | Alisha Schneider | ECON | Unknown | | + + + + + Care Team Providers + +------+ + | Care Mens Locker Room Attendant Name | Role | Phone | + +------+ + | Jet Chanye MD | PCP | | + +------+ + Reason for Visit + +--------+ + | Reason | Onset | Comments | | | Date | | + +--------+ + | Medication Question | 10/30/ | | | | 2018 | | + +--------+ + Encounter Details +--------+ + + + + | Date | Type | Department | Care Team | Description | +--------+ + + + + | 10/30/ | Telephone | [facility] | Michael Dowling | Medication Question | | 2018 | | CARE [address] | MD Roselyn [address] | | | | | [place] | [place] | | | | | [address] | [address] | | | | | [phone] | | | +--------+ + + + [...] this encounter Miscellaneous Notes Telephone Encounter - Lisa Kim Cert MA - 10/30/2017 1:24 PM PSTFormatting of this no te might be different from the original. PHARMACIST CALLED TO VERIFY SIG naproxen (NAPROSYN) 500 mg tablet [[id number]] Order Details Dose, Route, Frequency: As Directed Dispense Quantity: 30 tablet Refills: 0 Fills remaining: -- Sig: Take 1 one tablet with food twice daily for 5 days, then as needed for pain. PHARMACIST WAS NOTIFIED AGAIN AND UNDERSTOOD. documented in this encounter Plan of Treatment Not on filedocumented as of this encounter Visit Diagnoses Not on filedocumented in this encounter"
--- OUTSIDE RECORDS SUMMARY | ~2020-05-24 | XMS | Encounter Summary ---
Demographics + + + | Address | [facility] | | | [place] [address] | + + + | Home Phone | | + + + | Preferred Language | Unknown | + + + | Marital Status | Single | + + + | Yarsanism Affiliation | 1041 | + + + | Race | Unknown | + + + | Ethnic Group | or | + + + Author + + + | Author | [facility] | | | and [place] | + + + | Organization | [facility] | | | and [place] | + + + | Address | Unknown | + + + | Phone | Unavailable | + + + Support + + + + + | Name | Relationship | Address | Phone | + + + + + | Lkue Montgomery | ECON | [address] | | | | | [place] | | | | | [place], [place] | | | | | [address] | | + + + + + | Amy Schneider | ECON | [address] | | | | | [place], [place] | | | | | [address] | | + + + + + | Alisha Schneider | ECON | Unknown | | + + + + + Care Team Providers + +------+ + | Care Director Of Retail Marketing Name | Role | Phone | + +------+ + | Jet Chaney MD | PCP | | + +------+ + Reason for Visit + + + | Reason | Comments | + + + | Follow-up | 3 month follow up. no concerns | + + + Encounter Details +--------+---------+ + + + | Date | Type | Department | Care Team | Description | +--------+---------+ + + + | 10/09/ | Office | [facility] | Jet Chaney, | Chronic gastritis | | 2019 | Visit [facility] | [address] | without bleeding, | | | | [address] | [place], [place] | unspecified | | | | [place], [place] | [address] | gastritis type | | | | [address] | | (Primary Dx); | | | | [phone] | | Hodges's esophagus | | | | | | without dysplasia; | | | | | | Impaired fasting | | | | | | glucose; | | | | | | Hypothyroidism, | | | | | | unspecified type; | | | | | | Onychomycosis; Tinea | | | | | | pedis of both feet; | | | | | | Preventative health | | | | | | care; Irritable | | | | | | bowel syndrome with | | | | | | constipation; | | | | | | Trigger point with | | | | | | back pain | +--------+---------+ + + + Social History [...] + + + | Blood Pressure | 124/82 | 10/09/2018 4:40 PM | | | | | PST | | + + + + + | Pulse | 81 | 10/09/2018 4:40 PM | | | | | PST | | + + + + + | Temperature | 36.9 C (98.5 F) | 10/09/2018 4:40 PM | | | | | PST | | + + + + + | Respiratory Rate | 20 | 10/09/2018 4:40 PM | | | | | PST | | + + + + + | Oxygen Saturation | 98% | 10/09/2018 4:40 PM | | | | | PST | | + + + + + | Inhaled Oxygen | - | - | | | Concentration | | | | + + + + + | Weight | 94.5 kg (208 lb 5.4 | 10/09/2018 4:40 PM | | | | oz) | PST | | + + + + + | Height | - | - | | + + + + + | Body Mass Index | 38.1 | 09/18/2018 4:27 PM | | | | | PST | | + + + + + documented in this encounter Patient Instructions Patient Instructions Jet Chaney MD - 10/09/2018 4:30 PM PSTYour weight is creeping back up. You did a GREAT job losing weight previously. So please put a renewed focus on th e diet and exercise to bring the weight back down. Restart the pantoprazole. It works best at helping the bloating and nausea if you take it EVERY morning ideally 30 minutes before breakfast. Take the terbinafine as prescribed to treat the toenail fungus and athlete's feet. Please stop by the lab for blood work. You need to be fasting - nothing to eat or drink ot her than water or black coffee for 10 hours. No alcohol for 24 hours. Lab Hours: Saturday-Saturday 7 am to 5:30 pm [place] [address] [place] [address] Saturday ONLY @ [facility] 8 am to 4 pm Saturday: All labs closed Athlete s Foot Athlete s foot (tinea pedis) is caused by a fungal infection in the skin. It affects the skin between the toes, causing cracks in the skin called fissures. It can also affect the jack ttom of the foot where it causes dry white scales and peeling of the skin. This infection is more likely to occur when the foot is in hot, sweaty socks and shoes for long periods of ti me. You may feel itching and burning between your toes. This infection is treated with skin creams or medicine taken by mouth. Home care The following are general care guidelines: It is important to keep the feet dry. Use absorbent cotton socks and change them if they become sweaty. Or wear an open-toe shoe or sandal. Wash the feet at least once a day with s oap and water. Apply the antifungal cream as prescribed. Some antifungal creams are available without a prescription. It may take a week before the rash starts to improve. It can take about 3 to 4 weeks to completely clear. Continue the medicine until the rash is all gone. Use obps-zcm-cbaamau antifungal powders or sprays on your feet after exposure to high-ri sk environments, such as public showers, gyms, and locker rooms. This can help prevent futur e infections. Wearing appropriate shoes in these situations can help. Prevention The following tips may help prevent athlete s foot: Don't share shoes or socks with someone who has athlete's foot. Don't walk barefoot in places where a fungal infection can spread quickly such as locker rooms, showers, and swimming pools. Change socks regularly. Alternate shoes to assist in drying. Follow-up care Follow up with your healthcare provider as recommended if the rash does not improve after 1 0 days of treatment, or if the rash continues to spread. When to seek medical care Get medical attention right away if any of the following occur: Fever of 100.4F (38C) or higher, or as directed Increasing redness or swelling of the foot Infection comes back soon after treatment Pus draining from cracks in the skin Date Last Reviewed: 04/16/201619990924-0746 [employer]. [address] [place] [address]. All righ ts reserved. This information is not intended as a substitute for professional medical care. Always follow your healthcare professional's instructions. documented in this encounter Progress Notes Jet Chaney MD - 10/09/2018 4:30 PM PSTFormatting of this note might be different fr om the original. Subjective: Patient ID: Baudilio Schneider is a 38 y.o. female who is here today for Follow-up (3 month foll ow up. no concerns) HPI She had EGD with Dr [place]. Patulous LES. Biopsies negative. H Pylori negative. Recommen ded she continue protonix daily. She is not taking it regularly. She is taking Amitiza 8 m cg twice daily as prescribed. Her abdominal pains are doing well. She does still have occa sional abdominal pains, nausea, and bloating but not severe or too bothersome. She is now h aving a daily BM. No fever, vomiting, melena, hematochezia. She had trigger point injections with Rosalio Wyatt. They did help but not as much as her f irst injections with Dr Moore. She does still have daily neck and back pain, but manageable . She is not taking nortriptyline nightly. She just takes it infrequently when pain is adilson ping her up at night. It does help her sleep. She is no longer taking gabapentin. She solis sn't feel like she needs additional medicine to help with pain. She is taking levothyroxine 88 mcg as prescribed by Dr Stern. Patient's medications, allergies, past medical, surgical, social and family histories were obtained and reviewed as appropriate. Review of Systems Objective: BP 124/82 | Pulse 81 | Temp 36.9 C (98.5 F) (Temporal) | Resp 20 | Wt 94.5 kg (208 lb 5.4 oz) | SpO2 98% | BMI 38.10 kg/m Physical Exam Constitutional: Very pleasant, well [...] no guarding. Musculoskeletal: She exhibits no edema. Lymphadenopathy: She has no cervical adenopathy. Skin: Feet: Macerated webbing of toes. Nails thick, yellow, splintered. Psychiatric: She has a normal mood and affect. Her behavior is normal. Thought content norm al. EGD Impression: - Normal cricopharyngeus, upper third of esophagus, middle third of esophagus and l ower third of esophagus. - Z-line irregular, 35 cm from the incisors. Biopsied. - Patulous lower esophageal sphincter. - Erythematous mucosa in the antrum. Biopsied. - Normal duodenal bulb, first portion of the duodenum, second portion of the duoden um, area of the papilla and third portion of the duodenum. Biopsied. - The retroflexed view confirmed previous findings, Recommendation: - Patient has a contact number available for emergencies. The signs and symptoms of potential delayed complications were discussed with the patient. Return to normal activitie s tomorrow. Written discharge instructions were provided to the patient. - Discharge patient to home (ambulatory). - Resume previous diet today. - Follow an antireflux regimen indefinitely. - Continue present medications. - Await pathology results. - Return to primary care physician as previously scheduled. - Telephone GI clinic for pathology results in 1 week. Hill [place] MD 08/05/2018 11:00:05 AM FINAL PATHOLOGIC DIAGNOSIS: A. Random duodenum, biopsy: - Benign duodenal mucosa, negative for specific diagnostic abnormality. B. Distal esophagus, biopsy: - Benign esophageal mucosa with reactive epithelial features, negative for increased epit helial eosinophils. - Negative for glandular mucosa. Gastric Emptying IMPRESSION - Normal gastric emptying study. Assessment & Plan: 1. Chronic gastritis without bleeding, unspecified gastritis type, h/o Hodges's esophagus without dysplasia, IBS: Repeat EGD and biopsy reassuring other than patulous LES. Gastric emptying study normal. Symptoms have improved with Amitiza. - Continue Amitiza - Retry pantoprazole to help dyspepsia - Renew focus on weight loss - pantoprazole (PROTONIX) 40 mg tablet; Take 1 tablet by mouth every morning (before breakf ast). To help stomach inflammation Dispense: 30 tablet; Refill: 5 3. Impaired fasting glucose - Hemoglobin A1C; Future 4. Hypothyroidism, unspecified type: Managed by Dr Stern. She would like TSH drawn - TSH; Future 5. Onychomycosis - terbinafine (LAMISIL) 250 MG tablet; Take 1 tablet by mouth Daily for 90 days. Dispense: 30 tablet; Refill: 2. Educated on side effects. She does not drink alcohol. - Hepatic Function Panel; Future 6. Tinea pedis of both feet - Educated on foot care, OTC clotrimazole cream - terbinafine (LAMISIL) 250 MG tablet; Take 1 tablet by mouth Daily for 90 days. Dispense: 30 tablet; Refill: 2 7. Preventative health care - Lipid Panel; Future - Comprehensive Metabolic Panel; Future 9. Trigger point with back pain: Improved and manageable. Not taking gabapentin. Rarely taking nortriptyline. - Weight loss Return in about 6 months (around 04/08/2019). Prashanth Chaney MD documented in this e ncounter Plan of Treatment Not on filedocumented as of this encounter Results TSH (11/11/2018 9:05 AM PST) + + + + + + | Component | Value | Ref Range | Performed | Pathologist | | | | | At | Signature | + + + + + + | TSH | 0.26 (L)Comment: This is | 0.45 - 5.33 | [facility] | | | | a third generation TSH | uIU/mL | [facility] | | | | test. | | MEDICAL | | | | [...] ST. | [address] | [place], [place] | [phone] | | [facility] | | [address] | | | - LABORATORY | | | | + + + + + Hemoglobin A1C (11/11/2018 9:05 AM PST) + +---------+ + + + [...] + | [facility] | [address] | [place] | [phone] | | [facility] | | [address] | | | - LABORATORY | | | | + + + + + Comprehensive Metabolic Panel (11/11/2018 9:05 AM PST) + + + + + + | Component | Value | Ref Range | Performed | Pathologist | | | | | At | Signature | + + + + + + | Na | 136 | 136 - 149 | [facility] | | | | | mmol/L | [facility] | | | | | | MEDICAL | | | | | | CENTER - | | | | | | LABORATORY | | + + + + + + | K | 4.1 | 3.5 - 5.1 | [facility] | [...] + + + + | CO2 | 25 | 24 - 31 mmol/L | [facility] [...] + + + + | Creatinine | 0.58 (L) | 0.60 - 1.30 | [facility] [...] mL/min/1.73m2 | [facility] | | | [place] | RATE,ESTIMATED | | MEDICAL | | | | mL/min/1.63s3Yioi than | | CENTER - | | [...] + + + + | Calcium | 8.6 | 8.3 - 10.5 | [facility] | | | | | mg/dL | [facility] | | | | | | MEDICAL | | | | | | CENTER - | | | | | | LABORATORY | | + + + + + + | Albumin | 3.8 | 3.2 - 5.0 g/dL | [facility] | | | | | [...] + + + + | Total | 7.1 | 6.0 - 7.8 g/dL | [facility] | | | Protein | | | [facility] | | | | | | MEDICAL | | | | | | CENTER - | | | | | | LABORATORY | | + + + + + + | AST | 16 | 10 - 42 U/L | [facility] | | | | | | [facility] | | | | | | MEDICAL | | | | | | CENTER - | | | | | | LABORATORY | | + + + + + + | ALT | 22 | 6 - 45 U/L | [facility] | | | | | | [facility] | | | | | | MEDICAL | | | | | | CENTER - | | | | | | LABORATORY | | + + + + + + | Alkaline | 68 | 40 - 110 U/L | [facility] | | | Phosphatase | | | [facility] | | | | | | MEDICAL | | | | | | CENTER - | | | | | | LABORATORY | | + + + + + + | Globulin | 3.3 | 2.1 - 3.8 g/dL | [facility] | | | | | | [facility] | | | | | | MEDICAL | | | | | | CENTER - | | | | | | LABORATORY | | + + + + + + | Albumin/Lynn | 1.2 | 0.8 - 2.0 | [facility] | | | bulin Ratio | | | [facility] | | | | | | MEDICAL | | | | | | CENTER - | | | | | | LABORATORY | | + + + + + + | BUN/Creatin | 13.8 | | [facility] | | | ine [...] [address] | [place] | [phone] | | [facility] | | [address] | | | - LABORATORY | | | | + + + + + Lipid Panel (11/11/2018 9:05 AM PST) + + + + + + | Component | Value | Ref Range | Performed | Pathologist | | | | | At | Signature | + + + + + + | Triglycerid | 155 | 35 - 160 mg/dL | [facility] | | | es | | | [facility] | | | | | | MEDICAL | | | | | | CENTER - | | | | | | LABORATORY | | + + + + + + | Cholesterol | 157 | 140 - 200 mg/dL | [facility] | | | | | | [facility] | | | | | | MEDICAL | | | | | | CENTER - | | | | | | LABORATORY | | + + + + + + | HDL | 42Comment: New HDL | 28 - 83 mg/dL | [facility] | | | | Reference Range as of | | [facility] | | | | May 26, 2015 | | MEDICAL | | | | Values may be 10-20% | | CENTER - | | | | lower with new, | | LABORATORY | | | | standardized method. | | | | + + + + + + | Chol/HDL | 3.7 | | [facility] | | | Ratio | | | [facility] | | | | | | MEDICAL | | | | | | CENTER - | | | | | | LABORATORY | | + + + + + + | LDL, | 84 | <=130 mg/dL | [facility] | | [...] ST. | [address] | [place] | [phone] | | [facility] | | [address] | | | - LABORATORY | | | | + + + + + documented in this encounter Visit Diagnoses + + | Diagnosis | + + | Chronic gastritis without bleeding, unspecified gastritis type - Primary | + + | Hodges's esophagus without dysplasia Hodges's esophagus | + + | Impaired fasting glucose | + + | Hypothyroidism, unspecified type | + + | Onychomycosis Dermatophytosis of nail | + + | Tinea pedis of both feet | + + | Preventative health care Routine general medical examination at a [facility] | | facility | + + | Irritable bowel syndrome with constipation Irritable bowel syndrome | + + | Trigger point with back pain Backache, unspecified | + + documented in this encounter"
--- OUTSIDE RECORDS SUMMARY | ~2020-05-24 | XMS | Encounter Summary ---
Demographics + + + | Address | [facility] | | | [place] [address] | + + + | Home Phone | | + + + | Preferred Language | Unknown | + + + | Marital Status | Single | + + + | Jewish Affiliation | 1041 | + + + | Race | Unknown | + + + | Ethnic Group | or | + + + Author + + + | Author | [facility] | | | and [place] | + + + | Organization | [facility] | | | and [...] [place], [place] | | | | | [address] | | + + + + + | Amy Schneider | ECON | [address] | | | | | [place], [place] | | | | | [address] | | + + + + + | Alisha Schneider | ECON | Unknown | | + + + + + Care Team Providers + +------+ + | Care Card Reader Name | Role | Phone | + +------+ + PCP | Unavailable | + +------+ + Encounter Details +--------+ + + + + | Date | Type | Department | Care Team | Description | +--------+ + + + + | 04/08/ | Hospital | [facility] | | | | 2004 - | Encounter | [facility] | | | | | | [address] [place] | | | | 04/09/ | | [place] | | | | 2004 | | [address] | | | | | | [phone] | | | +--------+ + + + [...]
--- OUTSIDE RECORDS SUMMARY | ~2020-05-24 | XMS | Encounter Summary ---
Demographics + + + | Address | [facility] | | | [place] [address] | + + + | Home Phone [...] + | Organization | [facility] | | | and [place] | [...] [place], [place] | | | | | [address] | | + + + + + | Amy Schneider | ECON | [address] | | | | | [place], [place] | | | | | [address] | | + + + + + | Alisha Schneider | ECON | Unknown | | + + + + + Care Team Providers + +------+ + | Care Tray Server Name | Role | Phone | + +------+ + | Jet Chaney MD | PCP | | + +------+ + Encounter Details +--------+ + + + + | Date | Type | Department | Care Team | Description | +--------+ + + + + | 08/12/ | Abstract | [facility] | Jet Chaney, | | | 2011 | | MEDIC[facility] | [address] | | | | | [address] | [place] | | | | | [place] | [address] | | | | | [address] | | | | | | [phone] | | | +--------+ + + + [...]
--- OUTSIDE RECORDS SUMMARY | ~2020-05-24 | XMS | Encounter Summary ---
Demographics + + + | Address | [facility] | | | [place] [address] | + + + | Home Phone | | + + + | Preferred Language | Unknown | + + + | Marital Status | Single | + + + | Cheondoism Affiliation | 1041 | + + + | Race | Unknown | + + + | Ethnic Group | or | + + + Author + + + | Author | [facility] | | | and [place] | + + + | Organization | [facility] | | [...] [place], [place] | | | | | [address] | | + + + + + | Amy Schneider | ECON | [address] | | | | | [place], [place] | | | | | [address] | | + + + + + | Alisha Schneider | ECON | Unknown | | + + + + + Care Team Providers + +------+ + | Care Comprehensive Advisor Name | Role | Phone | + +------+ + | Jet Chaney MD | PCP | | + +------+ + Reason for Visit +---------+--------+ + | Reason | Onset | Comments | | | Date | | +---------+--------+ + | Results | 02/11/ | | | | 2014 | | +---------+--------+ + Encounter Details +--------+ + + + + | Date | Type | Department | Care Team | Description | +--------+ + + + + | 02/11/ | Telephone | [facility] | Jet Chaney, | Results | | 2013 | | MEDICINE [place] | [address] | | | | | [address] | [place] | | | | | [place] | [address] | | | | | [address] | | | | | | [phone] | | | +--------+ + + + [...] Telephone Encounter - Kemi Williamson LPN - 02/11/2014 2:42 PM PDTPatient called back an d was notified. elep javi Encounter - Kemi Williamson LPN - 02/11/2014 1:55 PM PDTCalled patient and unable to leave a message to call back. 1 :56 PM PDTTelephone Encounter - Jet Chaney MD - 02/11/2014 12:40 PM PDTWill you pleas e let Sochil know that her pelvic US was normal. Her ovaries look good. Thanks, Prashanth Chaney MD documented in this e ncounter Plan of Treatment Not on filedocumented as of this encounter Visit Diagnoses Not on filedocumented in this encounter"
--- OUTSIDE RECORDS SUMMARY | ~2020-05-24 | XMS | Encounter Summary ---
Demographics + + + | Address | [facility] | | | [place] [address] | + + + | Home Phone | | + + + | Preferred Language | Unknown | + + + | Marital Status | Single | + + + | Jew Affiliation | [phone] | + + + | Race | Unknown | + + + | Ethnic Group | or | + + + Author + + + | Author | [facility] | | | and [place] | + + + | Organization | [facility] | | | and [place] [...] [place], [place] | | | | | [address] | | + + + + + | Amy Schneider | ECON | [address] | | | | | [place], [place] | | | | | [address] | | + + + + + | Alisha Schneider | ECON | Unknown | | + + + + + Care Team Providers + +------+ + | Care Director Market Intelligence Name | Role | Phone | + [...] + + | Closed | Specialty | Internal | Diagnoses | Fritz, | Barry, | | | Services | Medicine - | | Med, | MD Breanne | | | Required | Endocrinology | Hypothyroidi | [employer] [address] | | | | , Diabetes & | sm, | [address] | [address] | | | | Metabolism | unspecified | [place], | [place], [place] | | | | | type | [place] [address] | [address] Phone: | | | | | | Phone: | [phone] | | | | | | [phone] | Fax: | | | | | | Fax: | [phone] | | | | | | [phone] | | +--------+ + + + + + Reason for Visit + + + | Reason | Comments | + + + | Abdominal Pain | | + + + Encounter Details +--------+---------+ + + + | Date | Type | Department | Care Team | Description | +--------+---------+ + + + | 01/09/ | Office | [facility] | Med Hu, | abdominal discomfort | | 2018 | Visit | [facility] [place] | [facility] [address] | (Primary Dx); | | | | [address] | [place], [place] | Hypothyroidism, | | | | [place], [place] | [address] | unspecified type; | | | | [address] | | Elevated blood | | | | [phone] | | pressure reading | +--------+---------+ + + + Social History [...] + + + | Blood Pressure | 138/100 | 01/09/2018 9:51 AM | | | | | PDT | | + + + + + | Pulse | 79 | 01/09/2018 9:51 AM | | | | | PDT | | + + + + + | Temperature | 36.8 C (98.2 F) | 01/09/2018 9:51 AM | | | | | PDT | | + + + + + | Respiratory Rate | 18 | 01/09/2018 9:51 AM | | | | | PDT | | + + + + + | Oxygen Saturation | 97% | 01/09/2018 9:51 AM | | | | | PDT | | + + + + + | Inhaled Oxygen | - | - | | | Concentration | | | | + + + + + | Weight | 93.5 kg (206 lb 2.1 | 01/09/2018 9:51 AM | | | | oz) | PDT | | + + + + + | Height | - | - | | + + + + + | Body Mass Index | 37.7 | 10/30/2017 10:55 AM | | | | | PST | | + + + + + documented in this encounter Patient Instructions Patient Instructions Med Hu ARNP - 01/09/2018 10:[facility]. For the constipation, push fluids, use Miralax 1 capful in 4-8 oz juice or water daily-twic e daily to maintain soft bowel movement until normal pattern ensues. Maintain a high fiber d iet with plenty of roughage, and 6-8 large glasses of water daily to avoid constipation in t he future. Timing elimination to occur after meals, or after a hot drink, can also improve t he situation fdc. Use of over the counter laxatives such at milk of magnesia or magnes ium citrate may be used for severe constipation if symptoms persist. Constipation (Adult) Constipation means that you have bowel movements that are less frequent than usual. Stools often become very hard and difficult to pass. Constipation is very common. At some point in life it affects almost everyone. Since everyo ne's bowel habits are different, what is constipation to one person may not be to another. Y our healthcare provider may do tests to diagnose constipation. It depends on whathe or she finds when evaluating you. Symptoms of constipation include: Abdominal pain Bloating Vomiting Painful bowel movements Itching, swelling, bleeding, or pain around the anus Causes Constipation can have many causes. These include: Diet low in fiber Too much dairy Not drinking enough liquids Lack of exercise or physical activity. This is especially true for older adults. Changes in lifestyle or daily routine, including , aging, work, and travel Frequent use or misuse of laxatives Ignoring the urge to have a bowel movement or delaying it until later Medicines, such as certain prescription pain medicines, iron supplements, antacids, cert ain antidepressants, and calcium supplements Diseases like irritable bowel syndrome, bowel obstructions, stroke, diabetes, thyroid di sease, Parkinson disease, hemorrhoids, and colon cancer Complications Potential complications of constipation can include: Hemorrhoids Rectal bleeding from hemorrhoids or anal fissures(skin tears) Hernias Dependency on laxatives Chronic constipation Fecal impaction Bowel obstruction or perforation Home care All treatment should be done after talking with your healthcare provider. This is especiall y true if you have another medical problems, are taking prescription medicines, or are an ol zeferino adult. Treatment most often involves lifestyle changes. You may also need medicines. You r healthcare provider will tell you which will work best for you. Follow the advice below to help avoid this problem in the future. Lifestyle changes These lifestyle changes can help prevent constipation: Diet. Eat a high-fiber diet, with fresh fruit and vegetables, and reduce dairy intake, m eats, and processed foods Fluids. It's important to get enough fluids each day. Drink plenty of water when you eat more fiber. If you are on diet that limits the amount of fluid you can have, talk about thi s with your healthcare provider. Regular exercise. Check with your healthcare provider first. Medicines Take any medicines as directed. Some laxatives are safe to use only every now and then. Oth ers can be taken on a regular basis. Talk with your doctor or pharmacist if you have questio ns. Prescription pain medicines can cause constipation. If you are taking this kind of medicine , ask your healthcare provider if you should also take a stool softener. Medicines you may take to treat constipation include: Fiber supplements Stool softeners Laxatives Enemas Rectal suppositories Follow-up care Follow up with your healthcare provider if symptoms don't get better in the next few days. You may need to have more tests or see a specialist. Call 911 Call 911 if any of these occur: Trouble breathing Stiff, rigid abdomen that is severely painful to touch Confusion Fainting or loss of consciousness Rapid heart rate Chest pain When to seek medical advice Call your healthcare provider right away if any of these occur: Fever of 100.4F (38C) or higher, or as directed by your healthcare provider Failure to resume normal bowel movements Pain in your abdomen or back gets worse Nausea or vomiting Swelling in your abdomen Blood in the stool Black, tarry stool Involuntary weight loss Weakness Date Last Reviewed: 09/14/201519999649-8803 [employer]. [address] [place] [address]. All righ ts reserved. This information is not intended as a substitute for professional medical care. Always follow your healthcare professional's instructions. documented in this encounter Progress Notes Med Hu ARNP - 01/09/2018 9:30 AM PDTFormatting of this note might be different fr om the original. Baudilio Schneider is a 37 y.o. female and patient of Jet Chaney MD Chief Complaint: Abdominal Pain HPI Abdominal pain : Reports upper abdominal pain underneath both side of rib cage. Describes pain is dull pain. Pain is constant, moderate and increased at times. History of gastritis but this doesn't fe el like that. Feels bloated. Not really worse with meals. Nothing really makes worse or bet ter. Not worse with certain movements. Reports she is constipated. Often goes several days w ithout having a bm. No difficulty swallowing or painful swallowing. No diarrhea, constipatio n or bloody, black, tarry stool or emesis. She would like referral to endocrinology. She has been exercising and adjusted her diet but hasn't lost much weight. TSH is normal. 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 Blood pressure is elevated today. No chest pain, shortness of breath or visual disturbance. PREVENTIVE CARE/PRIOR VISITS Any recommendations from Health Maintenance: Preventative Services TOPIC LAST DONE NEXT DUE Vaccine: Influenza 09/18/2017 Cervical Cancer Screening (Pap Every 3 Years 21-64 ) 11/02/2014 11/02/2017 Vaccine: Dtap/Tdap/Td 02/03/2012 02/02/2022 Vaccine: Pneumococcal 19-64 (Ppsv23 Only) Medium Risk 04/19/2016 Immunization History Administered Date(s) Administered INFLUENZA PF 18 Y OR >,TRIVALENT RECOMBINANT 06/07/2012 INFLUENZA PF 4Y OR >,QUAD DERIVED FROM TISS-CULT 09/18/2017 INFLUENZA PF QUAD(PED/ADOL/ADULT),PSKT or VIAL 06/24/2014, 05/31/2016 INFLUENZA PF TRIVALENT(PED/ADOL/ADULT), PSKT 07/17/2013 INFLUENZA, UNSPECIFIED FORMULATION 07/17/2015 PNEUMOCOCCAL POLYSACCHARIDE 23-VALENT (PPSV23) 04/19/2016 TDAP, (ADOL/ADULT) 02/03/2012 Allergies Allergen Reactions Hydrocodone Hives Breathing difficulty. Medications: Patient Reported Taking Dosage Cholecalciferol (VITAMIN D3) 5000 UNITS CAPS (Taking) Take 5,000 Units by mouth Daily. Number of times this order has been changed since signin Order [facility]it [place] fish oil 1,000 mg capsule (Taking) Take 2,000 mg by mouth Daily. Number of times this order has been changed since signin Order [facility] [place] levothyroxine (SYNTHROID) 75 MCG tablet (Taking) Take 1 tablet by mouth every morning (be fore breakfast). For low thyroid Number of times this order has been changed since signin Order Audit [place] meloxicam (MOBIC) 7.5 mg tablet (Taking/Discontinued) Take 1 tablet by mouth 2 times joi y. With food Number of times this order has been changed since signin Order Audit [place] Multiple Vitamins-Minerals (WOMENS ONE DAILY PO) (Taking) Take 1 tablet by mouth Daily. Number of times this order has been changed since signin Order Audit [place] naproxen (NAPROSYN) 500 mg tablet (Taking/Discontinued) Take 1 one tablet with food twice daily for 5 days, then as needed for pain. Number of times this order has been changed since signin Order Audit [place] nortriptyline (PAMELOR) 10 MG capsule (Taking) 1 capsule by mouth at bedtime for 7 days; then 2 at bedtime for 7 days; then 3 at bedtime for 7 days; then 4 at bedtime Number of times this order has been changed since signin Order Audit [place] tiZANidine (ZANAFLEX) 4 mg tablet (Taking) Take 0.5-1 tablets by mouth every 8 hours as n eeded (Neck and back pain). Number of times this order has been changed since signin Order Audit [place] UNABLE TO FIND (Taking) 20 g. Med Name: Protein Past Medical History She has a past medical history of Allergy; Cervical radicular pain; Chest wall pain; Chroni c abdominal pain; Chronic midline low back pain without sciatica; Depression; Dysplasia of c ervix, low grade (CHRISTIAN 1) (08/15/2012); Gallbladder disease; GERD (gastroesophageal reflux di sease); Hand numbness; Hypothyroid; Insomnia; Lower back pain; Obesity; Prediabetes; Seasona l allergies; Stress; Thyroid disorder; Tobacco abuse (02/23/2014); and Vitamin D deficiency. Past Surgical History She has a past surgical history that includes Tonsillectomy (2009); Cholecystectomy (2000); Endoscopy (09/21/13); and Upper gastrointestinal endoscopy (N/A, 08/28/2016). Family History: Her family history includes Colon cancer in her paternal uncle; Coronary artery disease (ag e of onset: 62) in her father; Depression in her sister; Diabetes in her father; High blood pressure in her father and sister; Kidney disease in her father and paternal grandfather; No Known Problems in her daughter, maternal grandfather, maternal grandmother, mother, paterna l grandmother, and son. 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 Objective: Vitals: 01/09/18 0951 BP: (!) 138/100 Pulse: 79 Resp: 18 Temp: 36.8 C (98.2 F) TempSrc: Temporal SpO2: 97% Weight: 93.5 kg (206 lb 2.1 oz) Physical Exam Constitutional: She is oriented to person, place, and time. She appears well-developed and well-nourished. No distress. HENT: Head: Normocephalic and atraumatic. Eyes: Conjunctivae are normal. Right eye exhibits no discharge. Left eye exhibits no discha rge. Neck: Neck supple. Cardiovascular: Normal rate, regular rhythm and normal heart sounds. No murmur heard. Pulmonary/Chest: Effort normal and breath sounds normal. No respiratory distress. She has n o wheezes. She has no rales. Abdominal: Soft. Bowel sounds are normal. She exhibits no distension. There is tenderness ( generalized). There is no rebound and no guarding. Neurological: She is alert and oriented to person, place, and time. Coordination normal. Skin: Skin is warm and dry. She is not diaphoretic. Psychiatric: She has a normal mood and affect. Her behavior is normal. Nursing note and vitals reviewed. Results for orders placed or performed in visit on 09/12/17 TSH Result Value Ref Range TSH 0.79 0.34 - 5.60 uIU/mL Hemoglobin A1C Result Value Ref Range Hemoglobin A1c 6.4 (H) 4.3 - 6.0 % Estimated Average Glucose 137 mg/dL Comprehensive Metabolic Panel Result Value Ref Range NA 135 (L) 136 - 149 mmol/L K 4.0 3.5 - 5.1 mmol/L CL 103 98 - 109 mmol/L CO2 29 24 - 31 mmol/L ANION GAP 3 3 - 16 mmol/L GLUCOSE 96 70 - 109 mg/dL BUN 5 (L) 7 - 18 mg/dL Creatinine, Serum/Plasma 0.56 (L) 0.60 - 1.30 mg/dL eGFR if not >60 >=60 mL/min/1.73m2 CALCIUM 8.8 8.3 - 10.5 mg/dL ALBUMIN 3.7 3.2 - 5.0 g/dL Bilirubin Total 0.5 0.1 - 1.5 mg/dL Total protein 7.1 6.0 - 7.8 g/dL AST 21 10 - 42 U/L ALT 31 6 - 45 U/L ALK PHOS 65 40 - 110 U/L GLOBULIN 3.4 2.1 - 3.8 g/dL Albumin/Globulin ratio 1.1 0.8 - 2.0 BUN/CREA 8.9 Lipid Panel Result Value Ref Range Triglycerides 172 (H) 35 - 160 mg/dL Cholesterol 139 (L) 140 - 200 mg/dL HDL 35 28 - 83 mg/dL Chol/HDL Ratio 4.0 LDL, Calculated 70 <=130 mg/dL Assessment: 1. abdominal discomfort XR Abdomen 2 VW 2. Hypothyroidism, unspecified type Endocrinology, External - AMB Referral 3. Elevated blood pressure reading Plans: 1. Abdominal discomfort Symptoms are consistent with constipation. For the constipation, push fluids, use Miralax 1 capful in 4-8 oz juice or water daily-twic e daily to maintain soft bowel movement until normal pattern ensues. Maintain a high fiber d iet with plenty of roughage, and 6-8 large glasses of water daily to avoid constipation in t he future. 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 Use of over the counter laxatives such at milk of magnesia or magnes ium citrate may be used for severe constipation if symptoms persist. - XR Abdomen 2 VW; Future 2. Hypothyroidism, unspecified type Patient requests endocrinology referral - Endocrinology, External - AMB Referral 3. Elevated blood pressure reading Previous readings have been in the normal range. Schedule nurse visit for next week to recheck. Follow-up: Return in about 2 weeks (around 01/23/2018), or if symptoms worsen or fail to imp rove, for abdominal discomfort. documented in this e ncounter Plan of Treatment + + +--------+ + + | Name | Type | Priori | Associated Diagnoses | Order Schedule | | | | ty | | | + + +--------+ + + | Endocrinology, | Outpatient | Routin | Hypothyroidism, | Ordered: 01/09/2018 | | External - AMB | Referral | e | unspecified type | | | Referral | | | | | + + +--------+ + + documented as of this encounter Results XR Abdomen 2 VW (01/09/2018 11:42 AM PDT) + + | Specimen | + + | | + + + + + | Narrative | Performed At | + + + | EXAM:XR ABDOMEN 2 VW CLINICAL HISTORY: abdominal xray | [facility] | | COMPARISON: None. FINDINGS: Supine and upright radiograph of the | | | abdomen. There is a moderate amount of stool and gas throughout the | | | colon. There are no dilated loops of bowel. There are small | | | calcifications projecting over both renal shadows. There is one in | | | the right lower pole and probably 2 in the left kidney. These | | | measure less than 3 mm. There is an intrauterine device projecting | | | in the pelvis. IMPRESSION - Moderate retained stool. No | | | evidence for gastrointestinal tract obstruction. Suspect | | | nephrolithiasis. Dictated and Signed by: Hill Duque MD | | | Electronically signed: 01/09/2018 12:21 PM | | + + + + + | Procedure Note | + + | Kranthi, Rad Results In - 01/09/2018 12:24 PM PDT EXAM:XR ABDOMEN 2 VW | | | | CLINICAL HISTORY: abdominal xray | | | | COMPARISON: None. | | | | FINDINGS: Supine and upright radiograph of the abdomen. There is a moderate | | amount of stool and gas throughout the colon. There are no dilated loops of | | bowel. There are small calcifications projecting over both renal shadows. | | There is one in the right lower pole and probably 2 in the left kidney. These | | measure less than 3 mm. There is an intrauterine device projecting in the | | pelvis. | | | | IMPRESSION - | | | | Moderate retained stool. | | | | No evidence for gastrointestinal tract obstruction. | | | | Suspect nephrolithiasis. | | | | Dictated and Signed by: Hill Duque MD | | Electronically signed: 01/09/2018 12:21 PM | + + + +---------+ + + | Performing | Address | City/State/Zipcode | Phone Number | | Organization | | | | + +---------+ + + | [facility] | | | | + +---------+ + + documented in this encounter Visit Diagnoses + + | Diagnosis | + + | abdominal discomfort - Primary | + + | Hypothyroidism, unspecified type | + + | Elevated blood pressure reading Elevated blood pressure reading without diagnosis of | | hypertension | + + documented in this encounter"
--- OUTSIDE RECORDS SUMMARY | ~2020-05-24 | XMS | Encounter Summary ---
Demographics + + + | Address | [facility] | | | [place] [address] | + + + | Home Phone [...] + | Organization | [facility] [...] [place], [place] | | | | | [address] | | + + + + + | Amy Schneider | ECON | [address] | | | | | [place], [place] | | | | | [address] | | + + + + + | Alisha Schneider | ECON | Unknown | | + + + + + Care Team Providers + +------+ + | Care Vessel Manager Name | Role | Phone | + +------+ + | Jet Chaney MD | PCP | | + +------+ + Reason for Visit +---------+--------+ + | Reason | Onset | Comments | | | Date | | +---------+--------+ + | Results | 09/13/ | | | | 2011 | | +---------+--------+ + Encounter Details +--------+ + + + + | Date | Type | Department | Care Team | Description | +--------+ + + + + | 09/13/ | Telephone | [facility] | Jet Chaney, | Results | | 2011 | | [facility] [place] | [address] | | | | | [address] | [place] | | | | | [place] | [address] | | | | | [address] | | | | | | [phone] | | | +--------+ + + + [...] Telephone Encounter - Jet Chaney MD - 09/13/2012 3:29 PM PSTReviewed lab with Evgeny santana. She did have a few beers the night prior to lab draw. This may explain mildly elevated ALT and mildly low sodium. Otherwise remainder of labs unremarkable. She will abstain from EtOH and recheck CMP on 10/03/12 Prashanth Chaney MD documented in this e ncounter Plan of Treatment Not on filedocumented as of this encounter Results Comprehensive metabolic panel (10/03/2012 4:07 PM PST) [...] | >60Comment: For | >60 mL/min/A | [facility] | | | GFR | -Americans, | [...] 136 | 136 - 149 mEq/L | [facility] | | | | | [...] + | [facility] | [address] | [place], [place] | [phone] | | [facility] | | [address] | | | - LABORATORY | | | | + + + + + | [facility] | [address] | [place], [place] | | | [facility] | | [address], [facility] | | | - LABORATORY | | | | + + + + + documented in this encounter Visit Diagnoses + + | Diagnosis | + + | Elevated liver enzymes - Primary Nonspecific elevation of levels of transaminase or | | lactic acid dehydrogenase (LDH) | + + | Hypertriglyceridemia without hypercholesterolemia Pure hyperglyceridemia | + + | Hypothyroidism Unspecified hypothyroidism | + + documented in this encounter"
--- OUTSIDE RECORDS SUMMARY | ~2020-05-24 | XMS | Encounter Summary ---
Demographics + + + | Address | [facility] | | | [place] [address] | + + + | Home Phone [...] + + + | Author | [facility] | | | and [place] | + + + | Organization | [facility] | | | and [...] [place], [place] | | | | | [address] | | + + + + + | Amy Schneider | ECON | [address] | | | | | [place], [place] | | | | | [address] | | + + + + + | Alisha Schneider | ECON | Unknown | | + + + + + Care Team Providers + +------+ + | Care Environmental Geologist Name | Role | Phone | + [...] Description | +--------+---------+ + + + | 03/11/ | Office | [facility] [place] | Eloy Moore, | Chronic midline low | | 2017 | Visit | PHYSIATRY [address] | [address] | back pain without | | | | [address] | [place] | sciatica (Primary | | | | [place] | [id number] | Dx); Lumbar facet | | | | [address] | | arthropathy; Non | | | | [phone] | | morbid obesity, | | | [...] + + + | Blood Pressure | 119/77 | 03/11/2017 5:06 PM | | | | | PDT | | + + + + + | Pulse | 79 | 03/11/2017 5:06 PM | | | | | PDT [...] + + + + | Weight | 90.7 kg (200 lb) | 03/11/2017 5:06 PM | | | | | PDT | | + + + + + | Height | 157.5 cm (5' 2") | 03/11/2017 5:06 PM | | | | | PDT | | + + + + + | Body Mass Index | 36.58 | 03/11/2017 5:06 PM | | | | | PDT | | + + + + + documented in this encounter Patient Instructions Patient Instructions Krystle Osorio RN - 03/11/2017 4:30 PM PDTPlease repeat labs in 6 months. Please continue the mobic. Please discontinue the cymbalta, as it was not helpful. Please continue daily exercises as outlined by Physical Therapy. Please see the processing technologist as requested, please call the clinic if you have not been con tacted within 2 weeks. A MRI has been requested. Please complete the requested imaging. Within one week, you beth uld receive a call to schedule your MRI. If you have not heard from anyone within one week, please call the clinic. The results of your MRI will be reviewed at your next appointment. If your MRI demonstrates any emergent results, the clinic will contact you. documented in this encounter Progress Notes Eloy Moore MD - 03/11/2017 4:30 PM PDTFormatting of this note might be different fro m the original. CHIEF COMPLAINT: Chief Complaint Patient presents with Back Pain HISTORY OF PRESENT ILLNESS: Baudilio Schneider is a 36 y.o. female being seen today in follow-up for complaints of back pain . Baudilio Schneider was last seen on 01/07/17. Previously it was recommended that she be edin luated by a processing technologist, that she have labs completed and that she starts new medication Cymbalta. She reports that the treatment was not effective. Overall Baudilio Schneider reports that their symptoms show no change. She rates the pain as 6 on scale of 1-10. She describes the pain as aching. Her symptoms worsen with bending, sta nding in place, and lifting. Her symptoms improve with rest and medication such as meloxica m. Baudilio Schneider does not describe numbness of the legs. She does not report weakness of the legs. She does not have bowel and bladder dysfunction. She does not have saddle anes thesia. Treatments for these complaints have included Physical Therapy and medications. In the pas t facet injections have been requested, but unfortunately denies by her insurance. Baudilio foster is currently taking meloxicam for treatment of her pain. Baudilio Schneider was previously t aking Cymbalta 30 mg two capsules nightly, although she recently ran out of medication. She reports noticing no improvement to her pain. She reports having increased dizziness and feel ings of tiredness upon waking. Rheumatology Consult is still pending scheduling. Baudilio Olsens medications, allergies, past medical, surgical, social and family histories were reviewed and updated as appropriate. CURRENT MEDICATIONS: Current Outpatient Prescriptions Medication Sig Dispense Refill Cholecalciferol (VITAMIN D3) 5000 UNITS CAPS Take 5,000 Units by mouth Daily. DULoxetine (CYMBALTA) [address] capsule Please take one capsules by mouth qhs x 7 days, thereafter take two capsules by mouth qhs 60 capsule 1 fish oil 1,000 mg capsule [...] SYSTEMS: Review of Systems Constitutional: Negative for chills, diaphoresis, fever, malaise/fatigue and weight loss. HENT: Negative for congestion, ear discharge, ear pain, hearing loss, nosebleeds, sore thro at and tinnitus. Eyes: Negative for blurred vision, double vision, photophobia, pain, discharge and redness. Respiratory: Negative for cough, hemoptysis, sputum production, shortness of breath, wheezi ng and stridor. Cardiovascular: Negative for chest pain, palpitations, orthopnea, claudication, leg swellin g and PND. Gastrointestinal: Negative for abdominal pain, blood in stool, constipation, diarrhea, hear tburn, melena, nausea and vomiting. Genitourinary: Negative for dysuria, flank pain, frequency, hematuria and urgency. Musculoskeletal: Positive for back pain. Negative for falls, joint pain, myalgias and neck pain. Skin: Negative for itching and rash. Neurological: Negative for dizziness, tingling, tremors, sensory change, speech change, foc al weakness, seizures, loss of consciousness, weakness and headaches. Endo/Heme/Allergies: Negative for environmental allergies and polydipsia. Does not bruise/b leed easily. Psychiatric/Behavioral: Negative for depression, hallucinations, memory loss, substance abu se and suicidal ideas. The patient is not nervous/anxious and does not have insomnia. PHYSICAL EXAMINATION: not currently . Body mass index is 36.58 kg/m. Vitals: 03/11/17 1706 BP: 119/77 Pulse: 79 PainSc: 6 PainLoc: Back GENERAL: The patient [...] has no apparent deficits with short or penitentiary memory. The cranial nerves appear grossly intact. Sensory exam:intact sensation to light touch in the upper and lower extremities. MOTOR EXAM: (5 IS NORMAL) * Indicates pain limited MUSCLE/ MOVEMENT: RIGHT LEFT Hip Flexion 5 5 Hip Extension 5 5 Knee Flexion 5 5 Knee Extension 5 5 Extensor Hallicus Longus 5 5 Ankle Dorsiflexion 5 5 Plantarflexion 5 5 REFLEX: RIGHT LEFT PATELLAR 1+ 1+ ACHILLES 1+ 1+ MUSCULOSKELETAL : The patient localized the majority of the pain to the midline and bilate ral lumbar region. Lumbar facet loading was positive with extension negative with rotation. Mild tenderness with palpation over midline spine. DATABASE: Lumbar MRI completed 11/2015 demonstrates lower lumbar facet arthropathy without disc path ology. There is trace facet effusions at L3-L4, L4-L5, and L5-S. Most recent BMP was revi ewed in detail during today's visit. Creatinine and BUN results noted as unremarkable. ASSESSMENT: 1. Chronic midline low back pain without sciatica 2. Lumbar facet arthropathy 3. Non morbid obesity, unspecified obesity type PLAN: 1. Baudilio Schneider has failed to improve with conservative therapies including medication, in cluding NSAIDS, physical therapies, and time. Baudilio Schneider continues to have significant ba ck pain that is effecting her daily living, today new imaging will be requested to evaluate for changes to previously noted arthritis and effusion. Updated MRI imaging will be helpful in guiding future treatment. 2. Discussed with Baudilio Schneider that due to no noted improvement and increased feelings of dizziness and tiredness that she should discontinue the Cymbalta. She was advised that this medication may take several weeks to be completely out of her system, and therefore if the medication was actually reducing some of her symptoms of pain she may not notice an increase in pain for another month. 3. I still feel strongly that Baudilio Schneider would benefit greatly from facet steroid inject ions, unfortunately her insurance does not cover this procedure. In the future, insurance pe rmitting this procedure may be requested. 4. Baudilio Schneider reports improvement to pain while using meloxicam, she was advised to cont inue its routine use. Baudilio Schneider's kidney function tests returned as unremarkable. A 6 m [facility] supply of medication will be sent to her pharmacy. Baudilio Schneider was advised to repeat lab testing 1 week prior to her next follow up visit in 6 months. 5. Baudilio Schneider was advised to continue daily exercises as outlined by Physical Therapy gus mckeon 6.Baudilio Schneider was advised to see the Rheumatology department as previously requested. 7. Baudilio Schneider will return to the clinic in 6 months to review her symptoms, to review he r Rheumatology consult, and to review imaging results. Thank you for allowing me to be involved in the care of your patient. If you have any ques tions regarding the care of your patient please don't hesitate to call. Approximately 25 minutes was spent face to face with Baudilio Schneider, over half of which was spent formulating and discussing their medical treatment plan. I, Eloy Moore MD personally performed the services described in this documentation, as scribed by in my presence, Krystle Osorio RN and are both accurate and complete. Eloy Moore MD - 03/11/2017 documented in this en counter Plan of [...]
--- OUTSIDE RECORDS SUMMARY | ~2020-05-24 | XMS | Encounter Summary ---
Demographics + + + | Address | [facility] | | | [place] [address] | + + + | Home Phone | | + + + | Preferred Language | Unknown | + + + | Marital Status | Single | + + + | Yazdanism Affiliation | [id number] | + + + | Race | Unknown | + + + | Ethnic Group | or | + + + Author + + + | Author | [facility] | | | and [place] | + + + | Organization | [facility] [...] [place], [place] | | | | | [address] | | + + + + + | Amy Schneider | ECON | [address] | | | | | [place], [place] | | | | | [address] | | + + + + + | Alisha Schneider | ECON | Unknown | | + + + + + Care Team Providers + +------+ + | Care Death Surveys Coder Name | Role | Phone | + +------+ + | Jet Chaney MD | PCP | | + +------+ + Encounter Details +--------+ + + + + | Date | Type | Department | Care Team | Description | +--------+ + + + + | 09/18/ | Hospital | [facility] | Eloy Moore, | Chronic midline low | | 2017 | Encounter | [facility] | [address] | back pain without | | | | [address] | [place] | sciatica; Lumbar | | | | [place] | [id number] | facet arthropathy | | | | [address] | | | | | | [phone] | | | +--------+ + + + [...] + + + +---------+ + + | betamethasone | Apply thin film to | 15 g | 0 | 09/06/20 | | | dipropionate 0.05% | affected area(s) | | | 16 | 7 | | creamIndications: | once or twice daily | | | | | | Keloid | for up to 2 weeks: | | | | | | | avoid face and groin | | | | | | | areas | | | | | + + [...] Take 1 tablet by | 60 | 1 | 09/18/19 | | | 7.5 mg tablet | mouth 2 times daily. | tablet | | 17 | 7 | | | With food | | [...] capsule by | 60 | 5 | 09/06/20 | | | (PRILOSEC) 20 mg | mouth 2 times daily. | capsule | | 16 | 7 | | capsuleIndications: | To help abdominal | | | | | | Gastritis, presence | pain | | | | | | of bleeding | | | | | | | unspecified, | | | | | | | unspecified | | | | | | | chronicity, | | | | | | | unspecified | | | | | | | gastritis type, | | | | | | | Gastroesophageal | | | | | | | reflux disease with | | | | | | | esophagitis | | | | | | + [...] | + +--------+ + + + | CLARENCE MORALES, | Routin | 09/18/2016 | Chronic midline | Results for this | | REFLEX | e | 3:51 PM | low back pain | procedure are in the | | | | PST | without sciatica | results section. | | | | | Lumbar facet | | | | | | arthropathy | | + +--------+ + + + | HLA B27 | Routin | 09/18/2016 | Chronic midline | Results for this | | | e | 3:51 PM | low back pain | procedure are in the | | | | PST | without sciatica | results section. | | | | | Lumbar facet | | | | | | arthropathy | | + +--------+ + + + | SEDIMENTATION RATE | Routin | 09/18/2016 | Chronic midline | Results for this | | | e | 3:51 PM | low back pain | procedure are in the | | | | PST | without sciatica | results section. | | | | | Lumbar facet | | | | | | arthropathy | | + +--------+ + + + | CYCLIC CITRULLINATED | Routin | 09/18/2016 | Chronic midline | Results for this | | PEPTIDE AB, IGG | e | 3:51 PM | low back pain | procedure are in the | | | | PST | without sciatica | results section. | | | | | Lumbar facet | | | | | | arthropathy | | + +--------+ + + + | RHEUMATOID FACTOR, | Routin | 09/18/2016 | Chronic midline | Results for this | | QUANT | e | 3:51 PM | low back pain | procedure are in the | | | | PST | without sciatica | results section. | | | | | Lumbar facet | | | | | | arthropathy | | + +--------+ + + + | C-REACTIVE PROTEIN | Routin | 09/18/2016 | Chronic midline | Results for this | | | e | 3:51 PM | low back pain | procedure are in the | | | | PST | without sciatica | results section. | | | | | Lumbar facet | | | | | | arthropathy | | + +--------+ + + + documented in this encounter Results HLA B27 (09/18/2016 3:51 PM PST) + + + + + + | Component | Value | Ref Range | Performed | Pathologist | | | | | At | Signature | + + + + + + | HLA B27 | NegativeComment: Testing | NEG | REFERENCE | | | | Performed: [place] | | [facility] | | | | [facility] | | | | | | [place], [facility] [address], | | | | | | [place] [address] | | | | + + + [...] [address] | [place] [address] | [phone] | + + + + + Clarence Morales Reflex (09/18/2016 3:51 PM PST) + + [...] | | | | | | P,Chromatin, SECURITY THREAT ANALYST, Sm | | | | | | SECURITY THREAT ANALYST, Scl-70, Centromere | | | | | | B, SSA, SSB and Shena-1) | | | | | | wasperformed and no | | | | | | autoantibodies were | | | | | | detected.Testing | | | | | | Performed: [facility], [address] | | | | | | [address], [place] | | | | | | [address] | | | | + + + [...] [address] | [place] [address] | [phone] | + + + + + Cyclic [...] | | | | | | [place] | | | | | | [address] | | | | + + + [...] [address] | [place] [address] | [phone] | + + + + + Rheumatoid Factor, Quant (09/18/2016 3:51 PM PST) + + + + + + | Component | Value | Ref Range | Performed | Pathologist | | | | | At | Signature | + + + + + + | RHEUMATOID | <20Comment: Testing | <20 IU/mL | REFERENCE | | | FACTOR | Performed: [facility], [address] | | [facility] | | | | [address], [place] | | | | | | [address] | | | | + + + [...] [address] | [place] [address] | [phone] | + + + + + Sedimentation [...] [address] | [place] | [phone] | | [facility] | | [address] | | | - LABORATORY | | | | + + + + + C-Reactive Protein (09/18/2016 3:51 PM PST) + +-------+ + + + | Component | Value | Ref Range | Performed | Pathologist | | | | | At | Signature | + +-------+ + + + | CRP | 0.61 | <8.00 mg/L | [facility] | | | | | | [facility] [...] [facility]. | [address] | [place] | [phone] | | [facility] | | [address] | | | - LABORATORY | | | | + + + + + documented in this encounter Visit Diagnoses + + | Diagnosis | + + | Chronic midline low back pain without sciatica | + + | Lumbar facet arthropathy Lumbosacral spondylosis without myelopathy | + + documented in this encounter"
--- OUTSIDE RECORDS SUMMARY | ~2020-05-24 | XMS | Encounter Summary ---
Demographics + + + | Address | [facility] | | | [place] [address] | + + + | Home Phone | | + + + | Preferred Language | Unknown | + + + | Marital Status | Single | + + + | Restorationism Affiliation | 1041 | + + + | Race | Unknown | + + + | Ethnic Group | or | + + + Author + + + | Author | [facility] | | | and [place] | + + + | Organization | [facility] | | | [...] [place], [place] | | | | | [address] | | + + + + + | Amy Schneider | ECON | [address] | | | | | [place], [place] | | | | | [address] | | + + + + + | Alisha Schneider | ECON | Unknown | | + + + + + Care Team Providers + +------+ + | Care Outdoor Illuminating Engineer Name | Role | Phone | + +------+ + | Jet Chaney MD | PCP | | + +------+ + Reason for Visit + +--------+ + | Reason | Onset | Comments | | | Date | | + +--------+ + | Diarrhea | 10/06/ | | | | 2014 | | + +--------+ + Encounter Details +--------+ + + + + | Date | Type | Department | Care Team | Description | +--------+ + + + + | 10/06/ | Telephone | [facility] | Jet Chaney, | Diarrhea | | 2013 | | [facility] | [address] | | | | | [address] | [place] | | | | | [place] | [address] | | | | | [address] | | | | | | [phone] | | | +--------+ + + + [...] Telephone Encounter - Michelle Petersen RN - 10/06/2013 4:46 PM PSTPhone call from patient. States that she has got diarrhea since starting back on the omeprazole States that she has no abdominal pain currently States that she does not think that she has tried anything else for stomach acid before Would you like her to try something else? [facility] [employer] [place] She can be reached at [phone] signed by Michelle Petersen RN at 10/06/2013 4:49 PM PSTdocumented in this encounter Plan of Treatment Not on filedocumented as of this encounter Visit Diagnoses Not on filedocumented in this encounter"
--- OUTSIDE RECORDS SUMMARY | ~2020-05-24 | XMS | Encounter Summary ---
Demographics + + + | Address | [facility] | | | [place] [address] | + + + | Home Phone | | + + + | Preferred Language | Unknown | + + + | Marital Status | Single | + + + | Baptist Affiliation | 1041 | + + + | Race | Unknown | + + + | Ethnic Group | or | + + + Author + + + | Author | [facility] | | | and [place] | + + + | Organization | [facility] | | | and [place] [...] [place], [place] | | | | | [address] | | + + + + + | Amy Schneider | ECON | [address] | | | | | [place], [place] | | | | | [address] | | + + + + + | Alisha Schneider | ECON | Unknown | | + + + + + Care Team Providers + +------+ + | Care Training Manager Name | Role | Phone | + +------+ + | Jet Chaney MD | PCP | | + +------+ + Reason for Visit + + + | Reason | Comments | + + + | Abdominal Pain | x 1-2 months | + + + Encounter Details +--------+---------+ + + + | Date | Type | Department | Care Team | Description | +--------+---------+ + + + | 10/01/ | Office | [facility] | Jet Chaney, | Chronic abdominal | | 2014 | Visit | MEDICINE [place] | [address] | pain (Primary Dx); | | | | [address] | [place], [place] | Gastritis | | | | [place], [place] | [address] | | | | | [address] | | | | | | [phone] | | | +--------+---------+ + + + [...] + + + | Blood Pressure | 106/84 | 10/01/2013 5:12 PM | | | | | PST | | + + + + + | Pulse | 64 | 10/01/2013 5:12 PM | | | | | PST | | + + + + + | Temperature | 36.7 C (98.1 F) | 10/01/2013 5:12 PM | | | | | PST | | + + + + + | Respiratory Rate | 16 | 10/01/2013 5:12 PM | | | | | PST | | + + + + + | Oxygen Saturation | - | - | | + + + + + | Inhaled Oxygen | - | - | | | Concentration | | | | + + + + + | Weight | 100.3 kg (221 lb 1.6 | 10/01/2013 5:12 PM | | | | oz) | PST | | + + + + + | Height | - | - | | + + + + + | Body Mass Index | 40.44 | 08/27/2013 4:43 PM | | | | | PST | | + + + + + documented in this encounter Patient Instructions Patient Instructions Jet Chaney MD - 10/01/2013 5:42 PM PSTBP 106/84 | Pulse 64 | T emp 36.7 C (98.1 F) (Temporal) | Resp 16 | Wt 100.29 kg (221 lb 1.6 oz) | LMP 09/25/2013 Please take the omeprazole 20 mg twice daily The best thing you can do for your health is lose weight. This will help improve your abdom inal pain and back pain Lifestyle Changes for Controlling GERD When you have GERD, stomach acid feels as if it s backing up toward your mouth. Whether o r not you take medication to control your GERD, your symptoms can often be improved with lif estyle changes. Talk to your doctor about the following suggestions, which may help you get relief from your symptoms. Raise Your Head Reflux is more likely to strike when you re lying down flat, because stomach fluid can fl ow backward more easily. Raising the head of your bed 4-6 inches can help. To do this: Slide blocks or books under the legs at the head of your bed. Or, place a wedge under th e mattress. Many [employer] can make a suitable wedge for you. The wedge should run from yo ur waist to the top of your head. Don t just prop your head on several pillows. This increases pressure on your stomach. It can make GERD worse. Watch Your Eating Habits Certain foods may increase the acid in your stomach or relax the lower esophageal sphincter , making GERD more likely. It s best to avoid the following: Coffee, tea, and carbonated drinks (with and without caffeine) Fatty, fried, or spicy food Mint, chocolate, onions, and tomatoes Any other foods that seem to irritate your stomach or cause you pain Relieve the Pressure Eat smaller meals, even if you have to eat more often. Don t lie down right after you eat. Wait a few hours for your stomach to empty. Avoid tight belts and tight-fitting clothes. Lose excess weight. Tobacco and Alcohol Avoid smoking tobacco and drinking alcohol. They can make GERD symptoms worse. [id number] [facility], [address] [place] [address]. All rights reserve d. This information is not intended as a substitute for professional medical care. Always fo llow your healthcare professional's instructions. documented in this encounter Progress Notes Jet Chaney MD - 10/01/2013 5:24 PM PSTFormatting of this note might be different fr om the original. Subjective: Patient ID: Baudilio Schneider is a 33 y.o. female here to follow-up on abdominal pain. HPI She completed the EGD. She stopped taking omeprazole 40 mg ~1 month ago. She is now takin g omeprazole 20 mg once daily. She continues to have upper abdominal pain. Pain is located in epigastric area and RUQ. Pain described as "a hurt." Sometimes feels bloated. Occasio hunter associated with nausea. At its worse rates 9/10. She thinks it comes and goes random ly. Worse with laying on right side. She does not know if it is better or worse with eatin g (previously said worse with eating). Not being on right side makes it better. No pain cu rrently. She continues to take ibuprofen 600 mg 1-2 days per week, but not daily any more. She canceled her appointment with gastroenterology. Not clear why. She did not meet with the intelligence manager. She did not hear from them. She is not eating out or fastfood. She cooks most of her own meals. No soda. She is not exercising. She will restart [employer]. No fever, weight loss, dysphagia, vomiting, diarrhea, constipation, dysuria, hematuria. Patient's medications, allergies, past medical, surgical, social and family histories were reviewed and updated as appropriate. Review of Systems See HPI BP 106/84 | Pulse 64 | Temp 36.7 C (98.1 F) (Temporal) | Resp 16 | Wt 100.29 kg (221 lb 1.6 oz) | LMP 09/25/2013 Objective: Physical Exam Constitutional: She appears well-developed and well-nourished. No distress. Neck: Neck supple. No thyromegaly present. Cardiovascular: Normal rate, regular rhythm and normal heart sounds. Exam reveals no solorzano p and no friction rub. No murmur heard. Pulmonary/Chest: Effort normal and breath sounds normal. No respiratory distress. She has n o wheezes. She has no rales. Abdominal: Soft. She exhibits no distension and no mass. There is Tenderness: Nontender wit hout rebound or guarding.. There is no rebound and no guarding. Assessment: Baudilio was seen today for abdominal pain. Diagnoses and associated orders for this visit: Chronic abdominal pain and dyspepsia: Suspect due to uncontrolled gastritis, though also s uspicious for postcholecystectomy syndrome. She had EGD early this month consistent with ga stritis. Unfortunately she is not taking PPI as prescribed - Resume omeprazole 20 mg twice daily - Will discuss with GI regarding further evaluation of postcholecystectomy syndrome with CT or MCRP (she already had unremarkable RUQ US, with exception of fatty liver). - Strongly encouraged diet changes, exercise, weight loss, completely quit smoking Prashanth Chaney MD [facility]ri [facility] [employer] - 10/01/2013 5:14 PM PSTPatient is here complaining of abdominal pain x 1-2 mon ths. Sushant singh in this encounter Plan of Treatment Not on filedocumented as of this encounter Visit Diagnoses + + | Diagnosis | + + | Chronic abdominal pain - Primary Abdominal pain, unspecified site | + + | Gastritis Unspecified gastritis and gastroduodenitis without mention of hemorrhage | + + documented in this encounter
--- OUTSIDE RECORDS SUMMARY | ~2020-05-24 | XMS | Encounter Summary ---
Demographics + + + | Address | [facility] | | | [place] [address] | + + + | Home Phone | | + + + | Preferred Language | Unknown | + + + | Marital Status | Single | + + + | Presybeterian Affiliation | 1041 | + + + | Race | Unknown | + + + | Ethnic Group | or | + + + Author + + + | Author | [facility] | | | and [place] | + + + | Organization | [facility] | | | and [place] [...] [place], [place] | | | | | [address] | | + + + + + | Amy Schneider | ECON | [address] | | | | | [place], [place] | | | | | [address] | | + + + + + | Alisha Schneider | ECON | Unknown | | + + + + + Care Team Providers + +------+ + | Care Timber Incisor Operator Name | Role | Phone | [...] point with | [address] | | | | n | back pain | [address] | [place], | | | | | Procedures | [place], | [place] [address] | | | | | [place] | [place] [address] | Phone: | | | | | TRIGGER | Phone: | [phone] | | | | | POINT, 3+ | [phone] | Fax: | | | | | [place] | Fax: | [phone] | | | | | [place] | [phone] | | | | | | SOLONE [...] Description | +--------+---------+ + + + | 04/29/ | Office | [facility] | Eloy Moore, | Chronic left-sided | | 2018 | Visit | PHYSIATRY [address] | [address] | low back pain | | | | [address] | [place] | without sciatica | | | | [place] | [address] | (Primary Dx); | | | | [address] | | Trigger point with | | | | [phone] | | back pain; Strain of | | | | | | lumbar region, | | | | | | sequela; Chronic | | | | | | left SI joint pain; | | | | | | Obesity (BMI | | | | | | 35.0-39.9 without | | | | | | comorbidity) | +--------+---------+ + + [...] + + + | Blood Pressure | 129/87 | 04/29/2018 5:31 PM | | | | | PDT | | + + + + + | Pulse | 75 | 04/29/2018 5:31 PM | | | | | PDT | | + + + + + | Temperature | - | - | | + + + + + | Respiratory Rate | 18 | 04/29/2018 5:31 PM | | | | | PDT | | + + + + + | Oxygen Saturation | - | - | | + + + + + | Inhaled Oxygen | - | - | | | Concentration | | | | + + + + + | Weight | 89.8 kg (198 lb) | 04/29/2018 5:31 PM | | | | | PDT | | + + + + + | Height | 157.5 cm (5' 2") | 04/29/2018 5:31 PM | | | | | PDT | | + + + + + | Body Mass Index | 36.21 | 04/29/2018 5:31 PM | | | | | PDT | | + + + + + documented in this encounter Patient Instructions Patient Instructions Krystle Osorio RN - 04/29/2018 4:40 PM PDTPlease continue daily ex ercises as outlined by Physical Therapy. Please return for trigger point injections. documented in this encounter Progress Notes Eloy Moore MD - 04/29/2018 4:40 PM PDTFormatting of this note might be different fro m the original. Eloy Moore MD [address] [facility] [address] [place] [address] FAX: PHYSICAL MEDICINE AND REHABILITATION H&P CHIEF COMPLAINT: Chief Complaint Patient presents with Back Pain HISTORY OF PRESENT ILLNESS: Baudilio Schneider is a 37 y.o. female being seen today in follow-up for complaints of low right sided back pain. Baudilio Schneider was last seen on 02/17/18. Previously it was recommended th at she complete lumbar MRI, and continue Nortriptyline. Overall Baudilio Schneider reports that her symptoms show no change. Baudilio Schneider rates the alonzo n as 4 on scale of 1-10. Baudilio Schneider describes the pain as aching. Her [...] n medications. Baudilio Schneider is currently taking gabapentin 600 mg nightly and nortriptylin e 10 mg nightly. She indicates she did not taper up the nortriptyline out of fear of it caus ing sedation. She denies any other side effects. Baudilio Olsens medications, allergies, past medical, surgical, [...] one week, then 2 capsules by mouth. 120 capsule 1 levonorgestrel (MIRENA) 20 MCG/24HR [...] then 4 at bedtime 120 capsule 1 pantoprazole (PROTONIX) 40 mg tablet Take 1 tablet by mouth every morning (before break fast). To help stomach inflammation 30 tablet 5 UNABLE TO FIND 20 g. Med Name: Protein No current facility-administered medications for this visit. ALLERGIES: Allergies Allergen Reactions Hydrocodone Hives Breathing difficulty. REVIEW OF SYSTEMS: Review of Systems Constitutional: Negative. HENT: Negative. Eyes: Negative. Gastrointestinal: Negative. Genitourinary: Negative. Musculoskeletal: Positive for back pain and joint pain. Negative for falls and myalgias. Neurological: Negative. Endo/Heme/Allergies: Negative. Psychiatric/Behavioral: Negative for depression, hallucinations, memory loss, substance abu se and suicidal ideas. The patient has insomnia. The patient is not nervous/anxious. PHYSICAL EXAMINATION: not currently . Body mass index is 36.21 kg/m. Vitals: 04/29/18 1731 BP: 129/87 Pulse: 75 Resp: 18 PainSc: 4 PainLoc: Back GENERAL: The patient is well [...] has no apparent deficits with short or mcc memory. The cranial nerves appear grossly intact. Sensory exam: intact sensation to light touch in the upper and lower extremities. Motor exam demonstrates grossly intact strength to upper and lower extremities MUSCULOSKELETAL : The patient localized the majority of the pain to the left lumbar paraspi nal muscles. DATABASE: Lumbar MRI competed 03/14/18 was reviewed personally by me in detail during today's visit. I concur with the results as reported by the Radiologist. The imaging demonstrates: Stable, early degenerative changes of the mid to lower lumbar spine. ASSESSMENT: 1. Chronic left-sided low back pain without sciatica 2. Trigger point with back pain 3. Strain of lumbar region, sequela 4. Chronic left SI joint pain 5. Obesity (BMI 35.0-39.9 without comorbidity) PLAN: 1. Baudilio Schneiderreturns to the clinic today for continued review and management of her back pain and to review her completed lumbar MRI results. 2. Baudilio Schneider's completed lumbar MRI was reviewed. Imaging demonstrate no significant ch anges. We discussed that given her MRI results she is more likely experiencing pain from a muscula r origin or from her SI joints. Unfortunately her insurance does not cover SI joint injectio ns, therefore this is not an available therapeutic or diagnostic procedure. 3. Upon physical examination Baudilio Schneider localizes her pain to the left paraspinal muscle s. We dicussed that she should continue exercises as outlined by physical therapy. She was a dvised to work towards weight loss to reduce the work load of her lumbar muscles. 4. Baudiilo Schneider was previously prescribed nortriptyline, she denies any side effects to th e medication but is unsure if it is helping her pain. She report it is some what helpful in improving sleep. Baudilio Schneider is currently taking 10 mg nightly, we disused this may be a s ubtherapeutic dose, she was encouraged to taper nortriptyline to 20 mg nightly to see if thi s dose offers for pain reduction. 5. We dicussed other possible treatment with a trigger point injection with the goal of red ucing pain to her left lumbar muscles. This is considered a temporarily treatment, with PT maame mohr considered the ferry terminal agent treatment. Baudilio Schneider will be scheduled to return to the [facility] for trigger point injections. Thank you for allowing me to be involved in the care of your patient. If you have any ques tions regarding the care of your patient please don't hesitate to call. Approximately 20 minutes was spent face to face with Baudilio Schneider, over half of which was spent formulating and discussing their medical treatment plan. I, Eloy Moore MD personally performed the services described in this documentation, as scribed by in my presence, Krystle Osorio RN and are both accurate and complete. Eloy Moore MD - 04/29/2018 documented in this en counter Plan of Treatment + + +--------+ + + | Name | Type | Priori | Associated Diagnoses | Order Schedule | | | | ty | | | + + +--------+ + + | * [facility] | Outpatient | Routin | Trigger point with | Ordered: 04/29/2018 | | Physiatry - AMB | Referral | e | back pain | | | Referral | | | | | + + +--------+ + + documented as of this encounter Visit Diagnoses + + | Diagnosis | + + | Chronic left-sided low back pain without sciatica - Primary | + + | Trigger point with back pain Backache, unspecified | + + | Strain of lumbar region, sequela | + + | Chronic left SI joint pain Disorders of sacrum | + + | Obesity (BMI 35.0-39.9 without comorbidity) Obesity, unspecified | + + documented in this encounter
--- OUTSIDE RECORDS SUMMARY | ~2020-05-24 | XMS | Encounter Summary ---
Demographics + + + | Address | [facility] | | | [place] [address] | + + + | Home Phone | | + + + | Preferred Language | Unknown | + + + | Marital Status | Single | + + + | Hinduism Affiliation | 1041 | + + + | Race | Unknown | + + + | Ethnic Group | or | + + + Author + + + | Author | [facility] | | | and [place] | + + + | Organization | [facility] | | | and [place] | [...] [place], [place] | | | | | [address] | | + + + + + | Amy Schneider | ECON | [address] | | | | | [place], [place] | | | | | [address] | | + + + + + | Alisha Schneider | ECON | Unknown | | + + + + + Care Team Providers + +------+ + | Care Examination Grader Name | Role | Phone | + +------+ + | Jet Chaney MD | PCP | | + +------+ + Reason for Visit + + + | Reason | Comments | + + + | Abdominal Pain | | + + + | Flank Pain | | + + + | Dysuria | | + + + Encounter Details +--------+ + + + + | Date | Type | Department | Care Team | Description | +--------+ + + + + | 12/22/ | Emergency | [facility] | Gareth Harding, | Kidney stone | | 2019 | | [facility] | MD [address] | (Primary Dx); | | | | CENTER [address] | [place] | Urinary tract | | | | [place], [place] | [address] | infection without | | | | [address] | | hematuria, site | | | | [phone] | | unspecified | +--------+ + + + + Social [...] + + + | Blood Pressure | 142/86 | 12/22/2018 10:18 PM | | | | | PDT | | + + + + + | Pulse | 86 | 12/22/2018 10:18 PM | | | | | PDT | | + + + + + | Temperature | - | - | | + + + + + | Respiratory Rate | 16 | 12/22/2018 7:29 PM | | | | | PDT | | + + + + + | Oxygen Saturation | 97% | 12/22/2018 10:18 PM | | | | | PDT | | + + + + + | Inhaled Oxygen | - | - | | | Concentration | | | | + + + + + | Weight | 95.3 kg (210 lb) | 12/22/2018 7:29 PM | | | | | PDT | | + + + + + | Height | 157.5 cm (5' 2") | 12/22/2018 7:29 PM | | | | | PDT | | + + + + + | Body Mass Index | 38.41 | 12/22/2018 7:29 PM | | | | | PDT | | + + + + + documented in this encounter Discharge Instructions AttachmentsThe following attachments cannot be sent through Care Everywhere.Urinary Tract I nfections (UTIs), Understanding (Georgian)Kidney Problems (Georgian)Acetaminophen; Oxycodone t ablets (Georgian)documented in this encounter Medications at Time of [...] + + + +---------+ + + | cephalexin | Take 1 capsule by | 15 | 0 | 12/23/19 | | | (KEFLEX) 500 mg | mouth 3 times daily | capsule | | 19 | 9 | | capsule | for 7 days. | | | | | + + [...] capsule by | 90 | 1 | 10/23/20 | | | (COLACE) 100 mg | [...] + + + +---------+ + + | | Take 1 tablet by | 12 | 0 | 12/23/19 | | | oxyCODONE-acetaminop | mouth every 6 hours | tablet | | 19 | 9 | | hen (PERCOCET) 5-325 | as needed for Pain | | | | | | mg per tablet | for up to 3 days. | | | | | + + [...] + + + +---------+ + + | terbinafine | Take 1 tablet by | 30 | 2 | 10/09/19 | | | (LAMISIL) 250 MG | mouth Daily for 90 | tablet | | 19 | 9 | | tabletIndications: | days. | | | | | | Onychomycosis, Tinea | | | | | | | pedis of both feet | | | | | | + + + +---------+ + + documented as of this encounter ED Notes Gareth Harding MD - 12/22/2018 8:52 PM PDTFormatting of this note might be different fro m the original. eMERGENCY dEPARTMENT eNCOUnter CHIEF COMPLAINT Chief Complaint Patient presents with Abdominal Pain Flank Pain Dysuria HPI Baudilio Schneider is a 38 y.o. female who presents with left flank pain. She states it started earlier today it has been constant since then. She has had some nausea but no vomiting. N o fever or cough. No other associated symptoms. She has had some mild dysuria. PAST MEDICAL HISTORY Past Medical History: Diagnosis Date Allergy Cervical [...] disorder Tobacco abuse 02/23/2014 Vitamin D deficiency SURGICAL HISTORY Past Surgical History: Procedure Laterality Date CHOLECYSTECTOMY 2001 ENDOSCOPY 09/21/2013 weakened lower esophageal sphincter, gastritis biopsied, pathology negative - Dr [place] at [facility] INTRAUTERINE DEVICE INSERTION 07/12/2015 Mirena - Dr Kaur at [facility] TONSILLECTOMY 11/01/2009 chronic tonsillitis, severely hypertrophic tonsils with upper airway obstruction - Dr Farhat thompson at [facility] UPPER GASTROINTESTINAL ENDOSCOPY N/A 08/28/2016 Procedure: EGD; Surgeon: Hill [place] MD; Location: [facility] UPPER GASTROINTESTINAL ENDOSCOPY N/A 08/05/2018 Procedure: EGD; Surgeon: [place] MD; Location: [facility] CURRENT MEDICATIONS PROGRAM SUPPORT SPECIALIST & RX Medications Medication Sig bisacodyl (BISACODYL) 5 mg EC tablet Take 1 tablet by mouth Daily as needed for Constip ation. Cholecalciferol (VITAMIN D3) 5000 UNITS CAPS Take 5,000 Units by mouth Daily. docusate sodium (COLACE) 100 mg capsule Take 1 capsule by mouth Daily. To help constipa tion fish oil 1,000 mg capsule Take 2,000 mg by mouth Daily. levonorgestrel (MIRENA) 20 MCG/24HR IUD 1 Device by Intrauterine route once for 1 dose. levothyroxine (SYNTHROID) 88 mcg tablet Take 88 mcg by mouth every morning (before jerome kfast). lubiprostone (AMITIZA) 8 mcg capsule Take 1 capsule by mouth 2 times daily (with breakf ast & dinner). Multiple Vitamins-Minerals (WOMENS ONE DAILY PO) Take [...] for 7 days; then 4 at bedtime) pantoprazole (PROTONIX) 40 mg tablet Take 1 tablet by mouth every morning (before break fast). To help stomach inflammation terbinafine (LAMISIL) 250 MG tablet Take 1 tablet by mouth Daily for 90 days. ALLERGIES Allergies Allergen Reactions Hydrocodone Hives and Shortness Of Breath FAMILY HISTORY Family History Problem Relation Age of Onset Diabetes Father High blood pressure Father Kidney disease Father Coronary artery disease Father 62 High blood pressure Sister Kidney disease Paternal Grandfather Depression Sister No known problems Mother No known problems Maternal Grandmother No known problems Maternal Grandfather No known problems Paternal Grandmother Colon cancer Paternal Uncle Breast cancer Neg Hx SOCIAL HISTORY Social History Socioeconomic History Marital status: Single Spouse name: Luke Number of children: 5 Years of education: None Highest education level: None Social Needs Financial resource strain: None Food insecurity - worry: None Food insecurity - inability: None Transportation needs - medical: None Transportation needs - non-medical: None 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 HENT: Normocephalic, Atraumatic, Oropharynx moist, No oral exudates, Nose normal. Neck- No rmal range of motion, No tenderness, Supple, No stridor. Eyes: PERRL, EOMI, Conjunctiva normal, No discharge. Respiratory: Normal breath sounds, No wheezing, No chest tenderness. Cardiovascular: Normal S1, S2 GI: nondistended : not done Musculoskeletal: Intact distal pulses, No edema ,Integument: Warm, Dry, No erythema, No rash. EKG Not done RADIOLOGY Ct Renal Stone Wo Contrast Result Date: 12/22/2018 EXAM: CT RENAL STONE WO CONTRAST dated 12/22/2018 9:15 PM HISTORY:Abdominal pain. Flank pain . Dysuria. Comparison: 02/24/2018. TECHNIQUE: Imaging is performed from the mid liver throug h the pubic symphysis without contrast. DOSE: DLP 440.55 mGy-cm FINDINGS: LUNG BASES: The v isible lower lungs are clear. LIVER: The visible unenhanced liver is unremarkable. GALLBLADD ER: The gallbladder is surgically absent. The intrahepatic and extrahepatic biliary ducts a re appropriate given the postsurgical state. SPLEEN: The visible unenhanced spleen is unrema rkable. There is a small splenule. PANCREAS: The unenhanced pancreas is unremarkable. No peripancreatic inflammatory change. ADRENALS: No adrenal enlargement. No adrenal masses. K IDNEYS: There is left hydronephrosis and mild left hydroureter. Mild perinephric stranding. There is a calcification that appears to be in the very inferior posterior dependent porti on of the bladder, slightly left-sided. This measures 3 mm. There are 2 intrarenal nephrol iths on the kidney measuring up to 2 mm. There is a 2 mm nephrolith in the inferior right k idney. No right hydronephrosis. BOWEL: The gastrointestinal tract is unremarkable. There i s no evidence for gastrointestinal tract obstruction. There is no evidence for appendicitis . There is no significant diverticular disease. VASCULATURE AND LYMPH NODES: There is no an eurysmal dilatation of the abdominal aorta. There is no pelvic or abdominal lymphadenopathy . BLADDER: The bladder is decompressed and not well evaluated. UTERUS AND ADNEXA:There is an intrauterine device covered by myometrium. There are no adnexal masses. BONES: There are n o acute osseous abnormalities. There are no lytic or blastic bone lesions. OTHER: There is no free fluid. There is no free air. There is a small fat-containing umbilical hernia. IMP RESSION - Findings consistent with mild obstruction of the left kidney. This is felt to be secondary to a recently passed 3 mm calcification in the dependent portion of the bladder. Currently, no ureteroliths. Bilateral intrarenal nephroliths. Dictated and Signed by: Hill Duque MD Electronically signed: 12/22/2018 9:26 PM Medications Administered ED COURSE & MEDICAL DECISION MAKING Last Set of Vital Signs: Pulse: 83 Resp: 16 SpO2: 99 % BP: (!) 153/106 Pertinent Labs, Nurses Note, & Imaging studies reviewed. (See chart for details) 38-year-old female with a left sided kidney stone which is passed. It looks like she may h ave some bladder infection as well. She was put on a course of Keflex. Reassessment at 213 0 she is feeling much better. Blood work is reassuring. She is discharged home to follow-u p with her regular doctor. FINAL IMPRESSION Kidney stone UTI LABS FROM THIS VISIT OR MOST RECENT ER VISIT: Results for orders placed or performed during the hospital encounter of 12/22/18 Urinalysis With Microscopic Result Value Ref Range Color Yellow Light Yellow, Yellow, Straw Clarity Cloudy (A) Clear pH, Urine 5.0 5.0 - 8.0 Specific [place] 1.021 1.001 - 1.030 Protein, Urine 30 mg/dL (A) Negative Blood, Urine Moderate (A) Negative Glucose, Urine Negative Negative Ketones, Urine Negative Negative Bilirubin, Urine Negative Negative Nitrite, Urine Negative Negative Leukocyte Esterase, Urine Trace (A) Negative Urobilinogen, Urine Negative 0.2 mg/dL, 1.0 mg/dL, Negative WBC UA 5-10 (A) 0 - 2 /HPF WBC CLUMPS UA Few (A) None Seen /HPF RBC UA 15-25 (A) 0 - 2 /HPF SQUAMOUS EPITHELIAL UA >100 (A) 0 - 2 /LPF BACTERIA UA 1+ (A) Negative /HPF MUCUS UA Present (A) Negative /LPF AMORPHOUS CRYSTALS Few (A) None Seen /HPF HYALINE CASTS UA 0-2 0 - 2 /LPF CBC with Differential Result Value Ref Range WBC 13.5 (H) 4.0 - 11.0 K/uL RBC 4.66 3.70 - 5.20 M/uL Hemoglobin 14.9 11.5 - 16.0 g/dL Hematocrit 44.7 34.0 - 47.0 % MCV 95.9 83.0 - 101.0 fL MCH 32.0 28.0 - 35.0 pg MCHC 33.3 32.0 - 36.0 g/dL RDW-CV 12.8 <15.0 % RDW-SD 44.9 35.1 - 46.3 fL Platelet Count 276 140 - 440 K/uL MPV 10.5 6.5 - 12.4 fL % Neutrophils 76.4 45.0 - 82.0 % % Lymphocytes 14.0 (L) 20.0 - 45.0 % % Monocytes 8.2 4.0 - 12.0 % % Eosinophils 0.5 0.0 - 5.0 % % Basophils 0.2 0.0 - 1.0 % % Immature Granulocytes 0.7 (H) 0.0 - 0.4 % Absolute Neutrophils 10.29 (H) 1.80 - 8.50 K/uL Absolute Lymphocytes 1.88 0.60 - 3.20 K/uL Absolute Monocytes 1.10 (H) 0.00 - 1.00 K/uL Absolute Eosinophils 0.07 0.00 - 0.40 K/uL Absolute Basophils 0.03 0.00 - 0.10 K/uL Absolute Immature Granulocytes 0.09 (H) 0.00 - 0.03 K/uL % nRBC 0 0 - 2 per 100 WBCs Absolute nRBC 0.00 0.00 - 0.01 K/uL Gareth Harding MD [id number] Ann Dias RN - 12/22/2018 7:30 PM PDTPt presents to the ED from home with complaints of dysuria, 10/10 l ower abdominal pain with radiation to left flank. Onset: today. Pt tells me that it howe af ter she goes "pee." She denies fever, n/v or diarrhea. documented in this encounter Plan of Treatment Not on filedocumented as of this encounter Procedures + +--------+ + + + | Procedure Name | Priori | Date/Time | Associated Diagnosis | Comments | | | ty | | | | + +--------+ + + + | CT RENAL STONE WO | STAT | 12/22/2018 | | Results for this | | CONTRAST | | 9:15 PM | | procedure are in the | | | | PDT | | results section. | + +--------+ + + + | CBC WITH | STAT | 12/22/2018 | | Results for this | | DIFFERENTIAL | | 9:12 PM | | procedure are in the | | | | PDT | | results section. | + +--------+ + + + | BASIC METABOLIC | STAT | 12/22/2018 | | Results for this | | PANEL | | 9:12 PM | | procedure are in the | | | | PDT | | results section. | + +--------+ + + + | URINALYSIS WITH | Routin | 12/22/2018 | | Results for this | | MICROSCOPIC | e | 7:51 PM | | procedure are in the | | | | PDT | | results section. | + +--------+ + + + documented in this encounter Results CT Renal Stone Wo Contrast (12/22/2018 9:15 PM PDT) + + | Specimen | + + | | + + + + + | Narrative | Performed At | + + + | EXAM: CT RENAL STONE WO CONTRAST dated 12/22/2018 9:15 PM | [facility] | | HISTORY:Abdominal pain. Flank pain. Dysuria. Comparison: | | | 02/24/2018. TECHNIQUE: Imaging is performed from the mid liver | | | through the pubic symphysis without contrast. DOSE: DLP 440.55 | | | mGy-cm FINDINGS: LUNG BASES: The visible lower lungs are | | | clear. LIVER: The visible unenhanced liver is unremarkable. | | | GALLBLADDER: The gallbladder is surgically absent. The intrahepatic | | | and extrahepatic biliary ducts are appropriate given the postsurgical | | | state. SPLEEN: The visible unenhanced spleen is unremarkable. | | | There is a small splenule. PANCREAS: The unenhanced pancreas is | | | unremarkable. No peripancreatic inflammatory change. ADRENALS: | | | No adrenal enlargement. No adrenal masses. KIDNEYS: There is | | | left hydronephrosis and mild left hydroureter. Mild perinephric | | | stranding. There is a calcification that appears to be in the very | | | inferior posterior dependent portion of the bladder, slightly | | | left-sided. This measures 3 mm. There are 2 intrarenal | | | nephroliths on the kidney measuring up to 2 mm. There is a 2 mm | | | nephrolith in the inferior right kidney. No right hydronephrosis. | | | BOWEL: The gastrointestinal tract is unremarkable. There is no | | | evidence for gastrointestinal tract obstruction. There is no | | | evidence for appendicitis. There is no significant diverticular | | | disease. VASCULATURE AND LYMPH NODES: There is no aneurysmal | | | dilatation of the abdominal aorta. There is no pelvic or abdominal | | | lymphadenopathy. BLADDER: The bladder is decompressed and not well | | | evaluated. UTERUS AND ADNEXA:There is an intrauterine device | | | covered by myometrium. There are no adnexal masses. BONES: | | | There are no acute osseous abnormalities. There are no lytic or | | | blastic bone lesions. OTHER: There is no free fluid. There is | | | no free air. There is a small fat-containing umbilical hernia. | | | IMPRESSION - Findings consistent with mild obstruction of the | | | left kidney. This is felt to be secondary to a recently passed 3 mm | | | calcification in the dependent portion of the bladder. Currently, | | | no ureteroliths. Bilateral intrarenal nephroliths. Dictated | | | and Signed by: Hill Duque MD Electronically signed: 12/22/2018 | | | 9:26 PM | | + + + + + | Procedure Note | + + | Kranthi, Rad Results In - 12/22/2018 9:29 PM PDT EXAM: CT RENAL STONE WO CONTRAST dated | | 12/22/2018 9:15 PMHISTORY:Abdominal pain. Flank pain. Dysuria.Comparison: | | 02/24/2018.TECHNIQUE: Imaging is performed from the mid liver through the pubic | | symphysiswithout contrast.DOSE: DLP 440.55 mGy-cmFINDINGS: LUNG BASES: The visible | | lower lungs are clear.LIVER: The visible unenhanced liver is unremarkable.GALLBLADDER: | | The gallbladder is surgically absent. The intrahepatic andextrahepatic biliary ducts | | are appropriate given the postsurgical state.SPLEEN: The visible unenhanced spleen is | | unremarkable. There is a smallsplenule.PANCREAS: The unenhanced pancreas is | | unremarkable. No peripancreaticinflammatory change.ADRENALS: No adrenal enlargement. | | No adrenal masses.KIDNEYS: There is left hydronephrosis and mild left hydroureter. | | Mildperinephric stranding. There is a calcification that appears to be in the | | veryinferior posterior dependent portion of the bladder, slightly left-sided. | | Thismeasures 3 mm. There are 2 intrarenal nephroliths on the kidney measuring up to2 | | mm. There is a 2 mm nephrolith in the inferior right kidney. No | | righthydronephrosis.BOWEL: The gastrointestinal tract is unremarkable. There is no | | evidence forgastrointestinal tract obstruction. There is no evidence for appendicitis. | | There is no significant diverticular disease.VASCULATURE AND LYMPH NODES: There is no | | aneurysmal dilatation of the abdominalaorta. There is no pelvic or abdominal | | lymphadenopathy.BLADDER: The bladder is decompressed and not well evaluated.UTERUS AND | | ADNEXA:There is an intrauterine device covered by myometrium. Thereare no adnexal | | masses.BONES: There are no acute osseous abnormalities. There are no lytic or | | blasticbone lesions.OTHER: There is no free fluid. There is no free air. There is a | | smallfat-containing umbilical hernia.IMPRESSION - Findings consistent with mild | | obstruction of the left kidney. This is felt sharifa secondary to a recently passed 3 mm | | calcification in the dependent portion ofthe bladder. Currently, no | | ureteroliths.Bilateral intrarenal nephroliths.Dictated and Signed by: Hill Duque, | | Electronically signed: 12/22/2018 9:26 PM | | | |KIDNEYS: There is left hydronephrosis and mild left hydroureter. Mild | |perinephric stranding. There is a calcification that appears to be in the very | |inferior posterior dependent portion of the bladder, slightly left-sided. This | |measures 3 mm. There are 2 intrarenal nephroliths on the kidney measuring up to | |2 mm. There is a 2 mm nephrolith in the inferior right kidney. No right | |hydronephrosis. | | | |BOWEL: The gastrointestinal tract is unremarkable. There is no evidence for | |gastrointestinal tract obstruction. There is no evidence for appendicitis. | |There is no significant diverticular disease. | | | |VASCULATURE AND LYMPH NODES: There is no aneurysmal dilatation of the abdominal | |aorta. There is no pelvic or abdominal lymphadenopathy. | | | |BLADDER: The bladder is decompressed and not well evaluated. | | | |UTERUS AND ADNEXA:There is an intrauterine device covered by myometrium. There | |are no adnexal masses. | | | |BONES: There are no acute osseous abnormalities. There are no lytic or blastic | |bone lesions. | | | |OTHER: There is no free fluid. There is no free air. There is a small | |fat-containing umbilical hernia. | | | |IMPRESSION - | | | |Findings consistent with mild obstruction of the left kidney. This is felt to | |be secondary to a recently passed 3 mm calcification in the dependent portion of | |the bladder. Currently, no ureteroliths. | | | |Bilateral intrarenal nephroliths. | | | |Dictated and Signed by: Hill Duque MD | | Electronically signed: 12/22/2018 9:26 PM | + + + +---------+ + + | Performing | Address | City/State/Zipcode | Phone Number | | Organization | | | | + +---------+ + + | [facility] | | | | + +---------+ + + Basic Metabolic Panel (12/22/2018 9:12 PM PDT) + +---------+ + + + | Component | Value | Ref Range | Performed | Pathologist | | | | | At | Signature | + +---------+ + + + | Na | 134 (L) | 136 - 145 | [facility] | | | | | mmol/L | [facility] | | | | | [facility] | | | | | [facility] - | | | | | | [facility]AT[facility] | | + +---------+ + + + | K | 4.0 | 3.4 - 5.1 | [facility] | | | | | mmol/L | [facility] | | | | | | [facility] - | | | | | | [facility]ATORY | | + +---------+ + + + | Cl | 100 | 98 - 107 mmol/L | [facility] | | | | | | [facility] | | | | | | [facility] | | | | | | [facility] - | | | | | | [facility]ATORY | | + +---------+ + + + | CO2 | 28 | 20 - 31 mmol/L | [facility] | | | | | | [facility] | | | | | | [facility] | | | | | | [facility] - | | | | | | LAB[facility]ATORY | | + +---------+ + + + | Anion Gap | 6 | 3 - 16 mmol/L | [facility] | | | | | | [facility] | | | | | | [facility] | | | | | | [facility] - | | | | | | LAB[facility]ATORY | | + +---------+ + + + | Glucose | 151 (H) | 60 - 106 mg/dL | [facility] | | | | | | [facility] | | | | | | [facility] | | | | | | [facility] - | | | | | | LABORATORY | | + +---------+ + + + | BUN | 12 | 9 - 23 mg/dL | [facility] | | | | | | [facility] | | | | | | [facility] | | | | | | [facility] - | | | | | | LAB[facility]ATORY | | + +---------+ + + + | Creatinine | 0.74 | 0.55 - 1.02 | [facility] | | | | | mg/dL | [facility] | | | | | | [facility] | | | | | | [facility] - | | | | | | LABORATORY | | + +---------+ + + + | eGFR, | >60 | >=60 | [facility] | | | non- | | mL/min/1.73m2 | [facility] | | | [place] | | | [facility] | | | | | | C[facility] - | | | | | | LABORATORY | | + +---------+ + + + | Calcium | 9.6 | 8.7 - 10.4 | [facility] | | | | | mg/dL | [facility] | | | | | | [facility] | | | | | | [facility] - | | | | | | LABORATORY | | + +---------+ + + + | BUN/Creatin | 16.2 | | [facility] | | | ine [...] + + + + + | [facility] | [address] | [place] | [phone] | | [facility] | | [address] | | | - LABORATORY | | | | + + + + + CBC with Differential (12/22/2018 9:12 PM PDT) + + + + + + | Component | Value | Ref Range | Performed | Pathologist | | | | | At | Signature | + + + + + + | White Blood | 13.5 (H) | 4.0 - 11.0 K/uL | [facility] | | | Cells | | | [facility] | | | | | | [facility] | | | | | | [facility] - | | | | | | LABORATORY | | + + + + + + | Red Blood | 4.66 | 3.70 - 5.20 | [facility] | | | Cells | | M/uL | [facility] | | | | | | [facility] | | | | | | [facility] - | | | | | | LABORATORY | | + + + + + + | Hemoglobin | 14.9 | 11.5 - 16.0 | [facility] | | | | | g/dL | [facility] | | | | | | [facility] | | | | | | [facility] - | | | | | | LABORATORY | | + + + + + + | Hematocrit | 44.7 | 34.0 - 47.0 % | [facility] | | | | | | [facility] | | | | | | [facility] | | | | | | [facility] - | | | | | | LABORATORY | | + + + + + + | MCV | 95.9 | 83.0 - 101.0 fL | [facility] | | | | | | [facility] | | | | | | [facility] | | | | | | [facility] - | | | | | | LABORATORY | | + + + + + + | MCH | 32.0 | 28.0 - 35.0 pg | [facility] | | | | | | [facility] | | | | | | [facility] | | | | | | [facility] - | | | | | | LABORATORY | | + + + + + + | MCHC | 33.3 | 32.0 - 36.0 | [facility] | [...] + + + + + + | RDW-SD | 44.9 | 35.1 - 46.3 fL | [facility] | | | | | | [facility] | | | | | | [facility] | | | | | | [facility] - | | | | | | LABORATORY | | + + + + + + | Platelet | 276 | 140 - 440 K/uL | [facility] | | | Count | | | [facility] | | | | | | [facility] | | | | | | [facility] - | | | | | | LABORATORY | | + + + + + + | MPV | 10.5 | 6.5 - 12.4 fL | [facility] | | | | | | [facility] | | | | | | [facility] | | | | | | [facility] - | | | | | | LABORATORY | | + + + + + + | % | 76.4 | 45.0 - 82.0 % | [facility] | | | Neutrophils | | | [facility] | | | | | | [facility] | | | | | | CENTER - | | | | | | LABORATORY | | + + + + + + | % | 14.0 (L) | 20.0 - 45.0 % | [facility] | | | Lymphocytes | | | [facility] | | | | | | [facility] | | | | | | [facility] - | | | | | | LABORATORY | | + + + + + + | % Monocytes | 8.2 | 4.0 - 12.0 % | [facility] | | | | | | [facility] | | | | | | [facility] | | | | | | CENTER - | | | | | | LABORATORY | | + + + + + + | % | 0.5 | 0.0 - 5.0 % | [facility] | | | Eosinophils | | | [facility] | | | | | | MEDICAL | | | | | | CENTER - | | | | | | LABORATORY | | + + + + + + | % Basophils | 0.2 | 0.0 - 1.0 % | [facility] | | | | | | [facility] | | | | | | MEDICAL | | | | | | CENTER - | | | | | | LABORATORY | | + + + + + + | % Immature | 0.7 (H)Comment: | 0.0 - 0.4 % | [facility] | | | Granulocyte | Preliminary studies have | | [facility] | | | s | indicated the IG% | | MEDICAL | | | | and/or IG# show promise | | CENTER - | | | | as an early screen for | | LABORATORY | | | | infection. For | | | | | | patients, use the | | | | | | special reference ranges | | | | | | listed below. | | | | + + + + + + | Absolute | 10.29 (H) | 1.80 - 8.50 | [facility] | | | Neutrophils | | K/uL | [facility] | | | | | | MEDICAL | | | | | | CENTER - | | | | | | LABORATORY | | + + + + + + | Absolute | 1.88 | 0.60 - 3.20 | [facility] | | | Lymphocytes | | K/uL | [facility] | | | | | | MEDICAL | | | | | | CENTER - | | | | | | LABORATORY | | + + + + + + | Absolute | 1.10 (H) | 0.00 - 1.00 | [facility] | | | Monocytes | | K/uL | [facility] | | | | | | MEDICAL | | | | | | CENTER - | | | | | | LABORATORY | | + + + + + + | Absolute | 0.07 | 0.00 - 0.40 | [facility] | | | Eosinophils | | K/uL | [facility] | | | | | | MEDICAL | | | | | | CENTER - | | | | | | LABORATORY | | + + + + + + | Absolute | 0.03 | 0.00 - 0.10 | [facility] | | | Basophils | | K/uL | [facility] | | | | | | MEDICAL | | | | | | CENTER - | | | | | | LABORATORY | | + + + + + + | Absolute | 0.09 (H)Comment: For | 0.00 - 0.03 | [facility] | | | Immature | patients, use | K/uL | [facility] | | | Granulocyte | the special reference | | MEDICAL | | | s | ranges listed below. | | CENTER - | | | | | | LABORATORY | | + + + + + + | % nRBC | 0 | 0 - 2 per 100 | [facility] | | | | | WBCs | [facility] | | | | | | MEDICAL | | | | | | CENTER - | | | | | | LABORATORY | | + + + + + + | Absolute | 0.00 | 0.00 - 0.01 | [facility] | | | nRBC | | K/uL | [facility] | | | | | | MEDICAL | | | | | | CENTER - | | | | | | LABORATORY | | + + + + + + + + | Specimen | + + | Blood | + + + + + | Narrative | Performed At | + + + | IMMATURE GRANULOCYTES - For patients, use the following | [facility] | | reference ranges: Trim. Absolute (K/uL) Percentage (%) | [facility] | | 1st 0.003-0.091 K/uL 0.0-0.9% 2nd 0.007-0.247 K/uL [facility] | | 0.1-2.0% [facility] 0.018-0.456 K/uL 0.1-2.0% | - LABORATORY | + + + + + + + + | Performing | Address | City/State/Zipcode | Phone Number | | Organization | | | | + + + + + | [facility] | [address] | [place] | [phone] | | [facility] | | [address] | | | - LABORATORY | | | | + + + + + Urinalysis With Microscopic (12/22/2018 7:51 PM PDT) + + + + + [...] + + + | pH, Urine | 5.0 | 5.0 - 8.0 | [facility] | | | | | | [facility] | | | | | | MEDICAL | | | | | | CENTER - | | | | | | LABORATORY | | + + + + + + | Specific | 1.021 | 1.001 - 1.030 | [facility] | | | [place], | | | [facility] | | [...] + + + + | Blood, | Moderate (A) | Negative | [facility] | | [...] + + + | White Blood | 5-10 (A) | 0 - 2 /HPF | [facility] | | | Cells, | | | [facility] | | | Urine | | | MEDICAL | | | | | | CENTER - | | | | | | LABORATORY | | + + + + + + | White Blood | Few (A) | None Seen /HPF | [facility] | | | Cell | | | [facility] | | | Clumps, | | | MEDICAL | | | Urine | | | CENTER - | | | | | | LABORATORY | | + + + + + + | Red Blood | 15-25 (A) | 0 - 2 /HPF | [facility] | | | Cells, | | | [facility] | | | Urine | | | MEDICAL | | | | | | CENTER - | | | | | | LABORATORY | | + + + + + + | Squamous | >100 (A) | 0 - 2 /LPF | [...] + + + + + + | Amorphous | Few (A) | None Seen /HPF | [facility] | | | Crystals, | | | [facility] | | | Urine | | | MEDICAL | | | | | | CENTER - | | | | | | LABORATORY | | + + + + + + | Hyaline | 0-2 | 0 - 2 /LPF | [facility] | | | Tee, | | | [facility] | | [...] [address] | [place] | [phone] | | [facility] | | [address] | | | - LABORATORY | | | | + + + + + documented in this encounter Visit Diagnoses + + | Diagnosis | + + | Kidney stone - Primary Calculus of kidney | + + | Urinary tract infection without hematuria, site unspecified | + + documented in this encounter Administered Medications + +--------+ +--------+------+------+ | Medication Order | MAR | Action | Dose | Rate | Site | | | Action | Date | | | | + +--------+ +--------+------+------+ | cephalexin (KEFLEX) capsule 500 | Given | 12/23/19 | 500 mg | | | | mg 500 mg, Oral, ONCE, Sat | | 10:09 | | | | | 12/22/18 at 2145, For 1 dose, | | PM PDT | | | | | Indications: UTI - LOWER | | | | | | + +--------+ +--------+------+------+ + +---+ | | | + +---+ | HYDROmorphone (DILAUDID) | | | injection 0.5 mg 0.5 mg, | | | Intravenous, EVERY 15 MIN PRN, | | | Pain, Starting 12/22/18 at | | | 2054, For 4 doses | | + +---+ | | | + +---+ + +-------+ +-------+---+---+ | ketorolac (TORADOL) injection | Given | 12/23/19 | 30 mg | | | | 30 mg 30 mg, Intravenous, ONCE, | | 19 9:06 | | | | | 12/22/18 at 2100, For 1 dose | | PM PDT | | | | + +-------+ +-------+---+---+ +---+---+ | | | +---+---+ + +-------+ +------+---+---+ | ondansetron (ZOFRAN) injection | Given | 12/23/19 | 4 mg | | | | 4 mg 4 mg, Intravenous, ONCE, | | 19 9:05 | | | | | 12/22/18 at 2100, For 1 dose | | PM PDT | | | | + +-------+ +------+---+---+ +---+---+ | | | +---+---+ + + + + +---+---+ | oxyCODONE-acetaminophen | Dispense | 12/23/19 | 1 tablet | | | | (PERCOCET) 5-325 mg per tablet | to Home | 19 10:10 | | | | | (ED prepack) 1 tablet 1 tablet, | | PM PDT | | | | | Oral, EVERY 8 HOURS PRN, Moderate | | | | | | | Pain, Starting 12/22/18 at | | | | | | | 2150, Patient Address: [facility] | | | | | | | [address] | | | | | | | [address], | | | | | | + + + + +---+---+ +---+---+ | | | +---+---+ documented in this encounter
--- OUTSIDE RECORDS SUMMARY | ~2020-05-24 | XMS | Encounter Summary ---
Demographics + + + | Address | [facility] | | | [place] [address] | + + + | Home Phone | | + + + | Preferred Language | Unknown | + + + | Marital Status | Single | + + + | Taoist Affiliation | 1041 | + + + | Race | Unknown | + + + | Ethnic Group | or | + + + Author + + + | Author | [facility] | | | and [place] | + + + | Organization | [facility] | | | and [place] [...] [place], [place] | | | | | [address] | | + + + + + | Amy Schneider | ECON | [address] | | | | | [place], [place] | | | | | [address] | | + + + + + | Alisha Schneider | ECON | Unknown | | + + + + + Care Team Providers + +------+ + | Care Specialist Physician Name | Role | Phone | + +------+ + | Jet Chaney MD | PCP | | + +------+ + Encounter Details +--------+ + + + + | Date | Type | Department | Care Team | Description | +--------+ + + + + | 02/10/ | Procedure | [facility] | Rosalio Wyatt, | Trigger point with | | 2018 | visit | PHYSIATRY [address] | PA-C [address] | back pain (Primary | | | | [address] | [address] [place] | Dx); Chronic | | | | [place] | [place] [address] | bilateral low back | | | | [address] | [phone] | pain without | | | | [phone] | | sciatica | +--------+ + + + + Social [...] + + + | Blood Pressure | 147/96 | 02/10/2019 12:00 PM | | | | | PDT | | + + + + + | Pulse | 82 | 02/10/2019 12:00 PM | | | [...] | 96.7 kg (213 lb 3 | 02/10/2019 12:00 PM | | | | oz) | PDT | | + + + + + | Height | 157.5 cm (5' 2") | 02/10/2019 12:00 PM | | | | | PDT | | + + + + + | Body Mass Index | 38.99 | 02/10/2019 12:00 PM | | | | | PDT | | + + + + + documented in this encounter Patient Instructions Patient Instructions Rosalio Wyatt PA-C - 02/10/2019 12:00 PM PDTFormatting of this note m ight be different from the original. - Ice the area as needed 20 minutes per hour. Multiple times as needed over the next few d ays. - Watch for signs of infection (redness around injection site, swelling, fever) - No strenuous activity for 24-48 hours after the procedure. - Please call the office with questions or concerns. Trigger Point Injection The cause of your [...] puncture (pneumothorax) Nerve damage Date Last Reviewed: 12/15/201719991717-[address] [place] [address]. [address] [facility] ts reserved. This information is not intended as a substitute for professional medical care. Always follow your healthcare professional's instructions. documented in this encounter Progress Notes Rosalio Wyatt PA-C - 02/10/2019 12:00 PM PDTFormatting of this note might be different fro m the original. CC: low back pain Encounter Diagnoses Name Primary? Trigger point with back pain Yes Chronic bilateral low back pain without sciatica HPI: Baudilio Schneider is a 38 y.o. female who is being seen today [...] ; 3 on left, 3 on right. Patient will follow-up with as needed. ELECTRONICALLY SIGNED BY: Rosalio Wyatt PA-C, 02/10/19 documented in this en counter Plan of Treatment Not on filedocumented as of this encounter Visit Diagnoses + + | Diagnosis | + + | Trigger point with back pain - Primary Backache, unspecified | + + | Chronic bilateral low back pain without sciatica | + + documented in this encounter Administered Medications + + + +--------+------+ + | Medication Order | MAR | Action | Dose | Rate | Site | | | Action | Date | | | | + + + +--------+------+ + | lidocaine 1% injection 10 mL | Given by | 02/11/20 | 10 mLs | | Other | | 10 mL, Other, ONCE, Phyllis 02/10/19 | Other | 19 12:12 | | | (Comment | | at 1230, For 1 dose | | PM PDT | | | ) | + + + +--------+------+ + +---+---+ | | | +---+---+ documented in this encounter
--- OUTSIDE RECORDS SUMMARY | ~2020-05-24 | XMS | Encounter Summary ---
Demographics + + + | Address | [facility] | | | [place] [address] | + + + | Home Phone | | + + + | Preferred Language | Unknown | + + + | Marital Status | Single | + + + | Muslim Affiliation | 1041 | + + + | Race | Unknown | + + + | Ethnic Group | or | + + + Author + + + | Author | [facility] | | | and [place] | + + + | Organization | [facility] | | | and [place] [...] [place], [place] | | | | | [address] | | + + + + + | Amy Schneider | ECON | [address] | | | | | [place], [place] | | | | | [address] | | + + + + + | Alisha Schneider | ECON | Unknown | | + + + + + Care Team Providers + +------+ + | Care Exhaust Equipment Operator Name | Role | Phone | + +------+ + | Jet Chaney MD | PCP | | + +------+ + Reason for Visit + + + | Reason | Comments | + + + | Follow-up | 3 month follow up | + + + | Constipation | wonders if she should still be doing bisacodyl | + + + Encounter Details +--------+---------+ + + + | Date | Type | Department | Care Team | Description | +--------+---------+ + + + | 07/08/ | Office | [facility] | Jet Chaney, | Upper abdominal pain | | 2018 | Visit | [facility] | [address] | (Primary Dx); | | | | [address] | [place], [place] | Dyspepsia; Hodges's | | | | [place], [place] | [phone] | esophagus without | | | | [address] | | dysplasia; | | | | [phone] | | Constipation, | | | | | | unspecified | | | | | | constipation type; | | | | | | Adnexal cyst; | | | | | | Hypothyroidism, | | | | | | unspecified type; | | | | | | Need for influenza | | | | | | vaccination; ASCUS | | | | | | of cervix with | | | | | | negative high risk | | | | | | HPV | +--------+---------+ + + + Social History [...] + | Blood Pressure | 128/84 | 07/08/2018 4:45 PM | | | | | PDT | | + + + + + | Pulse | 77 | 07/08/2018 4:45 PM | | | | | PDT | | + + + + + | Temperature | 36.8 C (98.2 F) | 07/08/2018 4:45 PM | | | | | PDT | | + + + + + | Respiratory Rate | 20 | 07/08/2018 4:45 PM | | | | | PDT | | + + + + + | Oxygen Saturation | 99% | 07/08/2018 4:45 PM | | | | | PDT | | + + + + + | Inhaled Oxygen | - | - | | | Concentration | | | | + + + + + | Weight | 87.9 kg (193 lb 12.6 | 07/08/2018 4:45 PM | | | | oz) | PDT | | + + + + + | Height | - | - | | + + + + + | Body Mass Index | 35.44 | 07/01/2018 3:49 PM | | | | | PDT | | + + + + + documented in this encounter Patient Instructions Patient Instructions Jet Chaney MD - 07/08/2018 4:30 PM PDTHave an ultrasound of yo ur ovaries as schedule to follow-up on the small cyst seen on your left ovary. Have the EGD as planned with Dr [place]. Use the docusate daily to keep the bowel movements soft. Use the bisacodyl just as needed for when you haven't had a bowel movement in 3 days or if you're feeling really backed up Constipation (Adult) Constipation means that you have [...] Involuntary weight loss Weakness Date Last Reviewed: 09/14/201519990161-7684 [employer]. [address] [place] [address]. All righ ts reserved. This information is not intended as a substitute for professional medical care. Always follow your healthcare professional's instructions. documented in this encounter Progress Notes Jet Chaney MD - 07/08/2018 4:30 PM PDTFormatting of this note might be different fr om the original. Subjective: Patient ID: Baudilio Schneider is a 37 y.o. female who is here today for Follow-up (3 month foll ow up) and Constipation (wonders if she should still be doing bisacodyl) HPI She continues to have intermittent upper abdominal pain and bloating. Now worse with eatin g anything. Feels best first thing in the morning. She continues to take pantoprazole 40 mg daily. She has a BM every other day, sometimes every 3 days. She felt better with bisacodyl and w onders if she can resume. She stopped taking miralax - no improvement in constipation. She sometimes has to strain. Stools are hard. No fever, unexplained weight loss, N/V, melena, hematochezia. She met with Dr [place]. She has EGD scheduled to evaluate gastroparesis. Also suspicious f or IBS. She is trying to lose weight. Conscientious of diet and is exercising. Her goal is to los e another 20-30 pounds. She would like to understand her Pap results (ASUCS, HPV negative) Patient's medications, allergies, past medical, surgical, social and family histories were obtained and reviewed as appropriate. Review of Systems Objective: BP 128/84 | Pulse 77 | Temp 36.8 C (98.2 F) (Temporal) | Resp 20 | Wt 87.9 kg (193 lb 12.6 oz) | SpO2 99% | BMI 35.44 kg/m Physical Exam Constitutional: Very pleasant, well [...] no guarding. Musculoskeletal: She exhibits no edema. Assessment & Plan: 1. Upper abdominal pain, Hodges's Esophagus, dyspepsia, constipation: Dr [place]'s note rev iewed. Possible gastroparesis, IBS. Greatly appreciate his assistance. Omeprazole did no t help dyspepsia symptoms.. - EGD as planned to evaluate for gastroparesis - Continue pantoprazole, bowel regimen - Weight loss - US Pelvis W Transvaginal; Future - bisacodyl (BISACODYL) 5 mg EC tablet; Take 1 tablet by mouth Daily as needed for Constipa tion. Dispense: 20 tablet; Refill: 1 - docusate sodium (COLACE) 100 mg capsule; Take 1 capsule by mouth Daily. To help constipat ion Dispense: 90 capsule; Refill: 1 5. Adnexal cyst: Possible GI symptoms related. No concerning systemic s/s - US Pelvis W Transvaginal; Future 6. Hypothyroidism, unspecified type - Levothyroxine per Dr Stern 7. Need for influenza vaccination - Influenza *PF 3 yr or >, Quadrivalent PSKT or Vial 8. ASCUS of cervix with negative high risk HPV: Educated on findings. - Repeat Pap in 3 years Return in about 3 months (around 10/08/2018). Prashanth Chaney MD hap manRoxana LPN - 07/08/2018 4:30 PM PDTAfter obtaining informed consent, the immunizatio n is given by Elian CROSS. documented in [...] other specified site | + + | Dyspepsia Dyspepsia and other specified disorders of function of stomach | + + | Hodges's esophagus without dysplasia Hodges's esophagus | + + | Constipation, unspecified constipation type | + + | Adnexal cyst Other specified symptom associated with female genital organs | + + | Hypothyroidism, unspecified type | + + | Need for influenza vaccination Need for prophylactic vaccination and inoculation | | against influenza | + + | ASCUS of cervix with negative high risk HPV | + + documented in this encounter"
--- OUTSIDE RECORDS SUMMARY | ~2020-05-24 | XMS | Encounter Summary ---
Demographics + + + | Address | [address] [facility] | | | [place] [address] | + + + | Home Phone [...] + + | Organization | [facility] | | | [...] [place], [place] | | | | | [address] | | + + + + + | Amy Schneider | ECON | [address] | | | | | [place], [place] | | | | | [address] | | + + + + + | Alisha Schneider | ECON | Unknown | | + + + + + Care Team Providers + +------+ + | Care Audit Lead Name | Role | Phone | + +------+ + | Jet Chaney MD | PCP | | + +------+ + Reason for Visit + +--------+ + | Reason | Onset | Comments | | | Date | | + +--------+ + | Diabetes | 11/02/ | | | | 2020 | | + +--------+ + Encounter Details +--------+ + + + + | Date | Type | Department | Care Team | Description | +--------+ + + + + | 11/02/ | Telephone | [facility] | Jet Chaney, | Diabetes | | 2019 | | [facility] [place] | [address] | | | | | [address] | [place] | | | | | [place] | [address] | | | | | [address] | | | | | | [phone] | | | +--------+ + + + [...] Telephone Encounter - Rosalina Castano RN - 11/03/2019 7:20 AM PSTPrescriptions for Fr Ade diaz snet to pharmacy. Patient notified via MyChart elephone Encounter - eJt Chaney MD - 11/02 5:00 PM PSTWill you please help order a glucometer and testing supplies compatible wi th insurance. She will check sugars once per day. Thanks! Prashanth Chaney MD documented in this e ncounter Plan of Treatment Not on filedocumented as of this encounter Visit Diagnoses + + | Diagnosis | + + | Controlled type 2 diabetes mellitus with microalbuminuria, without long-term current | | use of insulin (HCC) - Primary | + + documented in this encounter"
--- OUTSIDE RECORDS SUMMARY | ~2020-05-24 | XMS | Encounter Summary ---
Demographics + + + | Address | [facility] | | | [place] [address] | + + + | Home Phone | | + + + | Preferred Language | Unknown | + + + | Marital Status | Single | + + + | Sikh Affiliation | 1041 | + + + | Race | Unknown | + + + | Ethnic Group | or | + + + Author + + + | Author | [facility] | | | and [place] | + + + | Organization | [facility] | | | and [...] [place], [place] | | | | | [address] | | + + + + + | Amy Schneider | ECON | [address] | | | | | [place], [place] | | | | | [address] | | + + + + + | Alisha Schneider | ECON | Unknown | | + + + + + Care Team Providers + +------+ + | Care Laundry Routeman Name | Role | Phone | + +------+ + | Jet Chaney MD | PCP | | + +------+ + Reason for Visit + +--------+ + | Reason | Onset | Comments | | | Date | | + +--------+ + | Medication Refill | 11/05/ | | | | 2016 | | + +--------+ + Encounter Details +--------+--------+ + + + | Date | Type | Department | Care Team | Description | +--------+--------+ + + + | 11/05/ | Refill | [facility] | Eloy Moore MD | Medication Refill | | 2016 | | OTOLARYNGOLOGY [address] | [address] [place] | | | | | [address] | [address] [place], [place] | | | | | [place], [place] | [address] | | | | | [address] | | | | | | [phone] | | | +--------+--------+ + + + [...] Telephone Encounter - Tamar Lugo RN - 11/05/2016 11:42 AM PSTRefilled electronical ly. elephone Omer mckeon - Catarina Hdez RN - 11/05/2016 8:[address] Chaney be willing to r efill the patient's L-thyroxine 75 mcg, one time daily? This script was sent to Dr Eloy Dougherty h, SR from [facility] since "Dr Reyes Kaur is no longer at this facil ity." Dr Moore has never seen her and Dr Chaney is listed as her PCP. Thanks.Kumar castrejon signed by Catarina Hdez RN at 11/05/2016 8:28 AM PSTdocumented in this encounter Plan of Treatment Not on filedocumented as of this encounter Visit Diagnoses Not on filedocumented in this encounter
--- OUTSIDE RECORDS SUMMARY | ~2020-05-24 | XMS | Encounter Summary ---
Demographics + + + | Address | [facility] | | | [place] [address] | + + + | Home Phone | | + + + | Preferred Language | Unknown | + + + | Marital Status | Single | + + + | Gnosticism Affiliation | 1041 | + + + | Race | Unknown | + + + | Ethnic Group | or | + + + Author + + + | Author | [facility] | | | and [place] | + + + | Organization | [facility] | [...] [place], [place] | | | | | [address] | | + + + + + | Amy Schneider | ECON | [address] | | | | | [place], [place] | | | | | [address] | | + + + + + | Alisha Schneider | ECON | Unknown | | + + + + + Care Team Providers + +------+ + | Care Casino Surveillance Officer Name | Role | Phone | + +------+ + | Jet Chaney MD | PCP | | + +------+ + Encounter Details +--------+ + + + + | Date | Type | Department | Care Team | Description | +--------+ + + + + | 11/12/ | Hospital | [facility] | Jet Chaney, | Gestational diabetes | | 2016 | Encounter | [facility] | MD [address] | mellitus, | | | | [address] [place] | [place], [place] | delivered; Abnormal | | | | [place], [place] | [address] | glucose; | | | | [address] | | Preventative health | | | | [phone] | | care; Left upper | | | | | | quadrant pain; | | | | | | Hypothyroidism, | | | | | | unspecified | | | | | | hypothyroidism type; | | | | | | Chronic low back | | | | | | pain | +--------+ + + + + Social [...] + | URINALYSIS, REFLEX | Routin | 11/12/2015 | Preventative | Results for this | | MICROSCOPIC AND/OR | e | 11:15 AM | health care Chronic | procedure are in the | | CULTURE | | PST | low back pain | results section. | + +--------+ + + + | CULTURE, URINE | Routin | 11/12/2015 | Preventative | Results for this | | | e | 11:15 AM | health care Chronic | procedure are in the | | | | PST | low back pain | results section. | + +--------+ + + + | LIPID PANEL | Routin | 11/12/2015 | Preventative | Results for this | | | e | 11:07 AM | health care | procedure are in the | | | | PST | | results section. | + +--------+ + + + | CBC WITH | Routin | 11/12/2015 | Preventative | Results for this | | DIFFERENTIAL | e | 11:07 AM | health care Chronic | procedure are in the | | | | PST | low back pain Left | results section. | | | | | upper quadrant pain | | + +--------+ + + + | TSH | Routin | 11/12/2015 | Hypothyroidism, | Results for this | | | e | 11:07 AM | unspecified | procedure are in the | | | | PST | hypothyroidism type | results section. | + +--------+ + + + | HEMOGLOBIN A1C | Routin | 11/12/2015 | Gestational | Results for this | | | e | 11:07 AM | diabetes mellitus, | procedure are in the | | | | PST | delivered Abnormal | results section. | | | | | glucose | | + +--------+ + + + | COMPREHENSIVE | Routin | 11/12/2015 | Preventative | Results for this | | METABOLIC PANEL | e | 11:07 AM | health care Left | procedure are in the | | | | PST | upper quadrant pain | results section. | + +--------+ + + + documented in this encounter Results Culture, Urine (11/12/2015 11:15 AM PST) + + + + + + | Component | Value | Ref Range | Performed | Pathologist | | | | | At | Signature | + + + + + + | Culture | >100,000 CFU/ml Mixed | | [facility] | | | | Gram Positive | | [facility] | | | | FloraComment: Suggests | | MEDICAL | | | | contamination with | | CENTER - | | | | urogenital or skin | | LABORATORY | | | | osiel.No further work-up | | | | | | to follow. | | | | + + + [...] ST. | [address] | [place] | [phone] | | [facility] | | [address] | | | - LABORATORY | | [...] - 1.030 | [facility] | | | [place], | | | [facility] | | [...] + | [facility] | [address] | [place] | [phone] | | [facility] | | [address] | | | - LABORATORY | | [...] | | | | | g/dL | [facility] | | | | [...] | | | Eosinophils | | | [facility] | | | | | | MEDICAL | | | | | | CENTER - | | | | | | LABORATORY | | + + + + + + | % Basophils | 0.6 | 0.0 - 1.0 % | [facility] | | | | | | [facility] | | | | | | MEDICAL | | | | | | CENTER - | | | | | | LABORATORY | | + + + + + + | Absolute | 5.30 | 1.80 - 8.50 | [facility] | | | Neutrophils | | K/uL | [facility] | | | | | | MEDICAL | | | | | | CENTER - | | | | | | LABORATORY | | + + + + + + | Absolute | 1.30 | 0.60 - 3.20 | [facility] | | | Lymphocytes | | K/uL | [facility] | | | | [...] + | [facility] | [address] | [place] | [phone] | | [facility] | | [address] | | | - LABORATORY | | | | + + + + + TSH (11/12/2015 11:07 AM PST) + + + + + + | Component | Value | Ref Range | Performed | Pathologist | | | | | At | Signature | + + + + + + | TSH | 0.47Comment: All TSH | 0.34 - 5.60 | [facility] | | | | samples are screened [...] ST. | [address] | [place] | [phone] | | [facility] | | [address] | | | - LABORATORY | | | | + + + + + Lipid Panel (11/12/2015 11:07 AM PST) + + + + + + | Component | Value | Ref Range | Performed | Pathologist | | | | | At | Signature | + + + + + + | Triglycerid | 170 (H) | 35 - 160 mg/dL | [facility] | | | og | | | [facility] | | | | | | MEDICAL | | | | | | CENTER - | | | | | | LABORATORY | | + + + + + + | Cholesterol | 147 | 140 - 200 mg/dL | [facility] | | | | | | [facility] | | | | | | MEDICAL | | | | | | CENTER - | | | | | | LABORATORY | | + + + + + + | HDL | 34Comment: New HDL | 28 - 83 mg/dL | [facility] | | | | Reference Range as of | | [facility] | | | | May 26, 2015 | | MEDICAL | | | | Values may be 10-20% | | CENTER - | | | | lower with new, | | LABORATORY | | | | standardized method. | | | | + + + + + + | Chol/HDL | 4.3 | | [facility] | | | Ratio | | | [facility] | | | | | | MEDICAL | | | | | | CENTER - | | | | | | LABORATORY | | + + + + + + | LDL, | 79 | <=130 mg/dL | [facility] | | | Calculated | | | [facility] | | [...] [address] | [place] | [phone] | | [facility] | | [address] | | | - LABORATORY | | [...] (L) | 7 - 18 mg/dL | [facility] [...] mL/min/1.73m2 | [facility] | | | [place] | RATE,ESTIMATED | | MEDICAL | | | | mL/min/1.81r5Ezdy than | | CENTER - | | [...] [address] | [place] | [phone] | | [facility] | | [address] | | | - LABORATORY | | [...] | | | A1c | | | [facility] | | | | | | MEDICAL | | | | | | CENTER - | | | | | | LABORATORY | | + +-------+ + + + | Estimated | 120 | mg/dL | [facility] | | | Average | | | [facility] | | | Glucose | | [...] ST. | [address] | [place], [place] | [phone] | | [facility] | | [address] | | | - LABORATORY | | | | + + + + + documented in this encounter Visit Diagnoses + + | Diagnosis | + + | Gestational diabetes mellitus, delivered | + + | Abnormal glucose Other abnormal glucose | + + | Preventative health care Routine general medical examination at [facility] | | facility | + + | Left upper quadrant pain Abdominal pain, left upper quadrant | + + | Hypothyroidism, unspecified hypothyroidism type | + + | Chronic low back pain Lumbago | + + documented in this encounter"
--- OUTSIDE RECORDS SUMMARY | ~2020-05-24 | XMS | Encounter Summary ---
Demographics + + + | Address | [facility] | | | [place] [address] | + + + | Home Phone | | + + + | Preferred Language | Unknown | + + + | Marital Status | Single | + + + | Lutheran Affiliation | 1041 | + + + | Race | Unknown | + + + | Ethnic Group | or | + + + Author + + + | Author | [facility] | | | and [place] | + + + | Organization | [facility] | | | [...] [place], [place] | | | | | [address] | | + + + + + | Amy Schneider | ECON | [address] | | | | | [place], [place] | | | | | [address] | | + + + + + | Alisha Schneider | ECON | Unknown | | + + + + + Care Team Providers + +------+ + | Care Wind Tunnel Engineer Name | Role | Phone | + +------+ + | Jet Chaney MD | PCP | | + +------+ + Reason for Visit + +--------+ + | Reason | Onset | Comments | | | Date | | + +--------+ + | Lab Order | 01/13/ | | | | 2018 | | + +--------+ + Encounter Details +--------+ + + + + | Date | Type | Department | Care Team | Description | +--------+ + + + + | 01/13/ | Telephone | [facility] | Jet Chaney, | Lab Order | | 2017 | | [facility] [place] | [address] | | | | | [address] | [place] | | | | | [place] | [address] | | | | | [address] | | | | | | [phone] | | | +--------+ + + + [...] Lugo RN - 01/16/2018 3:41 PM PDTPatient notified. Rem inded her she needs to fast. 3: 41 PM PDTTelephone Encounter - Nabor Nixon RN - 01/16/2018 9:14 AM PDTLeft message for p atient to return call Per separate message - patient also needs a nurse visit for blood pressure check. elephone Encounter - Lydia Shah Cert MA - 01/15/2018 11:57 AM PDTI left a message for the patient to return my call. elephone Encoun ter - Jet Chaney MD - 01/13/2018 5:14 PM PDTLabs updated. Please remind her to fast . Thanks, Prashanth Chaney MD elephone Encounter - Tamar Lugo RN - 01/13/2018 1:59 PM PDTA1c and fasting glucose ordered in September with expected date of 03/16/18. OK to update orders? I can place them. elephone Encounter - Sabrina Chinchilla - 01/13/2018 12:48 PM PDTPatient stated that she tried to come in today 01/13/18 to do labs pr ior to her appointment on 01/24/18 but was told it was too soon. This appointment was resched uled from March but the lab orders were not changed.Patient would like us to change the date on the lab orders so she can come in before her scheduled appointment. Please advise.Electro nically signed by Sabrina Chinchilla at 01/13/2018 12:53 PM PDTdocumented in this encounter Plan of Treatment Not on filedocumented as of this encounter Visit Diagnoses Not on filedocumented in this encounter"
--- OUTSIDE RECORDS SUMMARY | ~2020-05-24 | XMS | Encounter Summary ---
Demographics + + + | Address | [facility] | | | [place] [address] | + + + | Home Phone [...] + + + | Author | [facility] | | | and [place] | + + + | Organization | [facility] | | | and [place] | [...] [place], [place] | | | | | [address] | | + + + + + | Amy Schneider | ECON | [address] | | | | | [place], [place] | | | | | [address] | | + + + + + | Alisha Schneider | ECON | Unknown | | + + + + + Care Team Providers + +------+ + | Care Long Lines Operator Name | Role | Phone | + +------+ + | Jet Chaney MD | PCP | | + +------+ + Reason for Visit + + + | Reason | Comments | + + + | Blood Pressure Check | | | (Screening) | | + + + Encounter Details +--------+ + + + + | Date | Type | Department | Care Team | Description | +--------+ + + + + | 01/16/ | Clinical | [facility] | Jet Chaney, | Blood pressure check | | 2018 | Support | [facility] [place] | [address] | (Primary Dx) | | | | [address] | [place] | | | | | [place] | [address] | | | | | [address] | | | | | | [phone] | | | +--------+ + + + [...] +---------+ + + | Blood Pressure | 130/88 | 01/16/2018 4:50 PM | | | | | PDT | | + +---------+ + + | Pulse | 84 | 01/16/2018 4:50 PM | | | | | PDT [...] +---------+ + + documented in this encounter Progress Notes Kemi Williamson LPN - 01/16/2018 4:30 PM PDTPatient came in for a blood pressure check. After she sat for several minutes her BP was 130/88 and pulse 84. documented in this encounter Plan of Treatment Not on filedocumented as of this encounter Visit Diagnoses + + | Diagnosis | + + | Blood pressure check - Primary Screening for hypertension | + + documented in this encounter"
--- OUTSIDE RECORDS SUMMARY | ~2020-05-24 | XMS | Encounter Summary ---
Demographics + + + | Address | [facility] | | | [place] [address] | + + + | Home Phone [...] | Organization | [facility] | | | and [place] [...] [place], [place] | | | | | [address] | | + + + + + | Amy Schneider | ECON | [address] | | | | | [place], [place] | | | | | [address] | | + + + + + | Alisha Schneider | ECON | Unknown | | + + + + + Care Team Providers + +------+ + | Care Payment Manager Name | Role | Phone | [...] +--------+ + + + + + | Denied | Specialty | Nutrition | Diagnoses | Ritu | Nancy | | | Services | | BMI | Jet Dempsey MD | Nutrition | | | Required | | 37.0-37.9, | [address] | [address] | | | | [address] | [address] [place] | [address] | | | | | | [place], [place] | [place], | | | | | | [address] | [place] [address] | | | | | | Phone: | Phone: | | | | | | [phone] | [phone] | | | | | | Fax: | Fax: | | | | | | [phone] | [phone] | +--------+ + + + + + Reason for Visit +--------+ + | Reason | Comments | +--------+ + | Other | Follow-up skin procedure | +--------+ + Encounter Details +--------+---------+ + + + | Date | Type | Department | Care Team | Description | +--------+---------+ + + + | 09/06/ | Office | [facility] | Jet Chaney, | Gastritis, presence | | 2016 | Visit | [facility] | [address] | of bleeding | | | | [address] | [place] | unspecified, | | | | [place], [place] | [address] | unspecified | | | | [address] | | chronicity, | | | | [phone] | | unspecified | | | | | | gastritis type | | | | | | (Primary Dx); | | | | | | Gastroesophageal | | | | | | reflux disease with | | | | | | esophagitis; Chronic | | | | | | left-sided low back | | | | | | pain without | | | | | | sciatica; Keloid; | | | | | | BMI 37.0-37.9, | | | | | | adult; Impaired | | | | | | fasting glucose; | | | | | | Hypothyroidism, | | | | | | unspecified type | +--------+---------+ + + + Social [...] + + + | Blood Pressure | 122/74 | 09/06/2016 4:09 PM | | | | | PST | | + + + + + | Pulse | 77 | 09/06/2016 4:09 PM | | | | | PST | | + + + + + | Temperature | 36.5 C (97.7 F) | 09/06/2016 4:09 PM | | | | | PST | | + + + + + | Respiratory Rate | 16 | 09/06/2016 4:09 PM | | | | | PST | | + + + + + | Oxygen Saturation | 99% | 09/06/2016 4:09 PM | | | | | PST | | + + + + + | Inhaled Oxygen | - | - | | | Concentration | | | | + + + + + | Weight | 93.4 kg (205 lb 12.8 | 09/06/2016 4:09 PM | | | | oz) | PST | | + + + + + | Height | 157.5 cm (5' 2") | 09/06/2016 4:09 PM | | | | | PST | | + + + + + | Body Mass Index | 37.64 | 09/06/2016 4:09 PM | | | | | PST | | + + + + + documented in this encounter Patient Instructions Patient Instructions Jet Chaney MD - 09/06/2016 4:37 PM PST BP 122/74 mmHg | Pulse 77 | Temp(Src) 36.5 C (97.7 F) (Temporal) | Resp 16 | Ht 1.575 m (5' 2") | Wt 93.35 kg (205 lb 12.8 oz) | BMI 37.63 kg/m2 | SpO2 99% Change the omeprazole to 20 mg twice daily Follow-up with Dr Moore for the back pain Please stop by the lab for blood work. You need to be fasting - nothing to eat or drink ot her than water or black coffee for 10 hours. No alcohol for 24 hours. The lab is open 7 AM Saturday-Saturday; 8 AM-noon on weekends (use Urgent Care entrance). Call your insurance to see if they cover weight loss programs or nutrition plans. Use the betamethasone cream for up to 2 weeks to help the itchy scar. Do NOT use for more than 2 weeks without taking a 2 week break. Losing Weight for Heart Health Excess weight [...] likely to stick with it. Calories and weight loss Calories are the [...] to burn the other 250 calories. Walking2.5mile s howe about 250 calories. Other more intense activities can burn more calories in the time you spend doing them, such as swimming and running. It is important to understand that redu cing calorie intake is much more effective at weight loss than is exercise. Eat a variety of healthy foods to get the nutrients you need. Tips for losing weight Drink 8 to 10 glasses of water a day. Don t skip meals. Instead, eat smaller portions. Eat your meals earlier in the day. Cut out sugary drinks such as soda and fruit juices. Make your later meals stacker than your earlier meals. Brisk activity is [...] and include moderate to vigorous physical activity. The most important part of the activity is that you break a sweat. This indicates your h eart is working hard enough to burn fat. [id number] [employer]. [address] [place] [address], [place] [address]. All righ ts reserved. This information is not intended as a substitute for professional medical care. Always follow your healthcare professional's instructions. Weight Management: Getting Started Healthy bodies come in all shapes and sizes. Not all bodies are made to be thin. For some p eople, a healthy weight is higher than the average weight listed on weight charts. Your [place] healthcare provider can help you decide on a [...] Also look to your healthcare provider, r asifistered dietitian, and special education para professional for help. Your local hospital can give you mor e information about nutrition, exercise, and weight loss. [id number] [employer]. [address] [place] [address]. All righ ts reserved. This information is [...] have questions about weight loss, ask your healthcare provider. Fiction: The faster I lose weight, [...] meals throughout the da y. Eat at least three meals a day. Fiction: I can t [...] treat yourself to a fat-free cookie or two. Just don t eat the whol e box! A dietitian will help you figure this out, and will likely recommend that you eat thr ee meals a day,with protein with each meal. [id number] [employer]. [address] [place] [address]. All righ ts reserved. This information is not intended as a substitute for professional medical care. Always follow your healthcare professional's instructions. documented in this encounter Progress Notes Jet Chaney MD - 09/06/2016 4:18 PM PSTFormatting of this note might be different fr om the original. Subjective: Patient ID: Baudilio Schneider is a 36 y.o. female here for skin concern, back pain. HPI She did not see her Mychart biopsy result. The wart has not returned. There is a small sc ar that itches and bothers her. She continues to have low back pain several days per week. Worse in left lower back and do es not radiate. Fluctuates between 0-8/10, currently no pain. Worse with laying flat, sitt ing for long periods, or bending over at waist. It improved with PT, but she has not follow ed up due to work schedule. She thought Dr Moore wanted her to stop nortriptyline and start meloxicam. She takes the meloxicam as needed several days per week. She does not take oth er NSAIDs in addition to the meloxicam. Facet injections are no longer covered by insurance . No paresthesias, bowel/bladder dysfunction. She had EGD. She is taking omeprazole 40 mg daily. Abdominal pain is much improved, but c an still have some upper abdominal pain at the end of the day. No fever, N/V, melena, hemat ochezia. She is not exercising. She walks a lot for work. She is happy with her diet - less fried foods. She is down to 1 cigarette per week. Patient's medications, allergies, past medical, surgical, social and family histories were obtained and reviewed as appropriate. Review of Systems See HPI BP 122/74 mmHg | Pulse 77 | Temp(Src) 36.5 C (97.7 F) (Temporal) | Resp 16 | Ht 1.575 m (5' 2") | Wt 93.35 kg (205 lb 12.8 oz) | BMI 37.63 kg/m2 | SpO2 99% Objective: Physical Exam Constitutional: Very pleasant, obese, [...] exhibits no edema. Symmetric 5/5 LE strength bilaterally Neurological: Neg straight leg raise Sensation intact to light touch Skin: Small slightly raised scar on right side of neck at site of previous biopsy EGD 08/28/16 Impression: - Normal cricopharyngeus, upper third of esophagus, middle third of esophagus, lower third of esophagus and lower esophageal sphincter. - Z-line irregular, 36 cm from the incisors. Biopsied. - Non-bleeding erosive gastropathy. Biopsied. - Duodenal mucosal atrophy. Biopsied. - Normal duodenal bulb and 3rd part of the duodenum. - The retroflexed view confirmed previous findings, Recommendation: - Patient has a contact number available for emergencies. The signs and symptoms of potential delayed complications were discussed with the patient. Return to normal activities tomorrow. Written discharge instructions were provided to the patient. - Discharge patient to home (ambulatory). - Resume previous diet today. - Follow an antireflux regimen indefinitely. - Continue present medications. - Await pathology results. - Return to primary care physician as previously scheduled. - Telephone GI clinic for pathology results in 1 week. Hill [place] MD Esophageal biopsy FINAL PATHOLOGIC DIAGNOSIS: A. Duodenal biopsy: - Benign duodenal mucosa; negative for specific diagnostic abnormality. B. Esophageal biopsy: - Gastroesophageal junction with reactive epithelial features and mild chronic inflammati on. - A very tiny focus of intestinal metaplasia (2 glands) of uncertain significance (see Co mment). - Negative for dysplasia. COMMENT: Two small glands contain several goblet-type cells, likely representing intestinal metaplas ia. The significance of these findings is uncertain; clinical correlation is requested. Assessment: Baudilio was seen today for other. Diagnoses and all orders for this visit: Gastritis, GERD: Tiny areas of intestinal metaplasia of uncertain significance. - Change omeprazole to 20 mg twice daily to see if that provides better evening relief - Lifestyle measures reviewed - omeprazole (PRILOSEC) 20 mg capsule; Take 1 capsule by mouth 2 times daily. To help a bdominal pain Chronic left-sided low back pain without sciatica: Stable. Facet injections not covered. Dr Moore's note reviewed. Greatly appreciate his assistance - Continue to work on weight loss - Continue meloxicam. Caution with NSAIDs given GERD - Educated on back care and warning signs - FU with Dr Moore as planned Keloid - betamethasone dipropionate 0.05% cream; Apply thin film to affected area(s) once or t wice daily for up to 2 weeks: avoid face and groin areas BMI 37.0-37.9, adult, IFG, chronic back pain: She would benefit from nutrition consult. - She will check with inusrance to see if they provide weight loss program - * [facility] Nutrition Services - AMB Referral Impaired fasting glucose - Comprehensive Metabolic Panel; Future - Hemoglobin A1C; Future Hypothyroidism, unspecified type - TSH; Future - Adjust levothyroxine pending results Return in about 3 months (around 12/05/2016), or if symptoms worsen or fail to improve. Prashanth Chaney MD raik, Kemi Dempsey LP N - 09/06/2016 4:09 PM PSTPatient is here to follow-up on her skin procedure. documented in this encounter Plan of Treatment + + +--------+ + + | Name | Type | Priori | Associated Diagnoses | Order Schedule | | | | ty | | | + + +--------+ + + | * [facility] Nutrition | Outpatient | Routin | BMI 37.0-37.9, | Ordered: 09/06/2016 | | Services - AMB | Referral | e | adult | | | Referral | | | | | + + +--------+ + + documented as of this encounter Results Hemoglobin A1C (09/11/2016 11:57 AM PST) + +---------+ + + + | Component | Value | Ref Range | Performed | Pathologist | | | | | At | Signature | + +---------+ + + + | Hemoglobin | 6.2 (H) | 4.3 - 6.0 % | [facility] | | | A1c | | | [facility] | | | | | | [facility] | | | | | | [facility] - | | | | | | LABORATORY | | + +---------+ + + + | Estimated | 131 | mg/dL | [facility] | | | [...] + | [facility] | [address] | [place] | [phone] | | [facility] | | [address] | | | - LABORATORY | | | | + + + + + TSH (09/11/2016 11:57 AM PST) + + + + + + | Component | Value | Ref Range | Performed | Pathologist | | | | | At | Signature | + + + + + + | TSH | 1.18Comment: All TSH | 0.34 - 5.60 | [facility] | | | | samples are screened | uIU/mL | [facility] | | | | using a 2nd [...] [address] | [place] | [phone] | | [facility] | | [address] | | | - LABORATORY | | | | + + + + + Comprehensive Metabolic Panel (09/11/2016 11:57 AM PST) + + + + + + | Component | Value | Ref Range | Performed | Pathologist | | | | | At | Signature | + + + + + + | Na | 139 | 136 - 149 | [facility] | [...] Cl | 102 | 98 - 109 mmol/L | [facility] | | | | | | [facility] | | | | | | [facility] | | | | | | [facility] - | | | | | | LABORATORY | | + + + + + + | CO2 | 30 | 24 - 31 mmol/L | [facility] | | | | | | [facility] | | | | | | [facility] | | | | | | [facility] - | | | | | | LABORATORY | | + + + + + + | Anion Gap | 7 | 3 - 16 mmol/L | [facility] | | | | | | [facility] | | | | | | [facility] | | | | | | [facility] - | | | | | | LABORATORY | | + + + + + + | Glucose | 97 | 70 - 109 mg/dL | [facility] | | | | | | [facility] | | [facility] | | | [facility] | | | | | | [facility] - | | | | | | LABORATORY | | + + + + + + | BUN | 8 | 7 - 18 mg/dL | [facility] | | | | | | [facility] | | | | | | MEDICAL | | | | | | CENTER - | | | | | | LABORATORY | | + + + + + + | Creatinine | 0.57 (L) | 0.60 - 1.30 | [facility] | | | | | mg/dL | [facility] | | | | | | MEDICAL | | | | | | CENTER - | | | | | | LABORATORY | | + + + + + + | eGFR, | >60Comment: GLOMERULAR | >=60 | [facility] | | | non- | FILTRATION | mL/min/1.73m2 | [facility] | | | [place] | RATE,ESTIMATED | | MEDICAL | | | | mL/min/1.10v0Trkk than | | CENTER - | | [...] + + + + | Albumin | 3.5 | 3.2 - 5.0 g/dL | [facility] [...] + + + + | Total | 6.5 | 6.0 - 7.8 g/dL | [facility] | | | Protein | | | [facility] | | | | | | MEDICAL | | | | | | CENTER - | | | | | | LABORATORY | | + + + + + + | AST | 18 | 10 - 42 U/L | [facility] | | | | | | [facility] | | | | | | [facility]ICAL | | | | | | CENTER - | | | | | | LABORATORY | | + + + + + + | ALT | 30 | 6 - 45 U/L | [facility] | | | | | | [facility] | | | | | | MEDICAL | | | | | | CENTER - | | | | | | LABORATORY | | + + + + + + | Alkaline | 65 | 40 - 110 U/L | [facility] | | | Phosphatase | | | [facility] | | | | | | MEDICAL | | | | | | CENTER - | | | | | | LABORATORY | | + + + + + + | Globulin | 3.0 | 2.1 - 3.8 g/dL | [facility] [...] + + + + | BUN/Creatin | 14.0 | | [facility] | | | ine [...] ST. | [address] | [place] | [phone] | | [facility] | | [address] | | | - LABORATORY | | | | + + + + + documented in this encounter Visit Diagnoses + + | Diagnosis | + + | Gastritis, presence of bleeding unspecified, unspecified chronicity, unspecified | | gastritis type - Primary | + + | Gastroesophageal reflux disease with esophagitis | + + | Chronic left-sided low back pain without sciatica | + + | Keloid Keloid scar | + + | BMI 37.0-37.9, adult | + + | Impaired fasting glucose | + + | Hypothyroidism, unspecified type | + + documented in this encounter
--- OUTSIDE RECORDS SUMMARY | ~2020-05-24 | XMS | Encounter Summary ---
Demographics + + + | Address | [facility] | | | [place] [address] | + + + | Home Phone [...] + | Organization | [facility] | | | and [place] [...] [place], [place] | | | | | [address] | | + + + + + | Amy Schneider | ECON | [address] | | | | | [place], [place] | | | | | [address] | | + + + + + | Alisha Schneider | ECON | Unknown | | + + + + + Care Team Providers + +------+ + | Care License Examiner Name | Role | Phone | + +------+ + | Jet Chaney MD | PCP | | + +------+ + Reason for Visit +--------+--------+ + | Reason | Onset | Comments | | | Date | | +--------+--------+ + | Other | 09/29/ | results and follow up appt | | | 2013 | | +--------+--------+ + Encounter Details +--------+ + + + + | Date | Type | Department | Care Team | Description | +--------+ + + + + | 09/29/ | Telephone | [facility] | [place] MD | Other (results and | | 2013 | | GASTROENTEROLOGY | [address], [place] | follow up appt) | | | | [address] [place] | [address] [place], [place] | | | | | [address] [place], [place] | [address] | | | | | [address] | | | | | | [phone] | | | +--------+ + + + [...] Telephone Encounter - Maryanne Leonard RN - 09/29/2013 2:21 PM PSTSochil called back states she is not having really pain states more a bloating feeling states it is better, taking ome prazole daily, she is going to cancel follow up appt at this time and see how things go, if has symptoms continue then will call for an appt at that time. elephone Encounter - Maryanne Leonard RN - 09/29/2013 2:13 [address] PSTDr.Jumana just had a cancellation if patient would like can make appt for tomorrow . elephone Encounter - Maryanne Marie RN - 09/29/2013 2:10 PM PSTCalled Sochil back message left to call back to r office. elephone Omer mckeon - Joanne Ortega - 09/29/2013 2:07 PM PSTPatient scheduled her follow up with jumana in October. Patient could not do morning appointments. Patient would like to speak with the nu rse, please call her back. do cumented in this encounter Plan of Treatment Not on filedocumented as of this encounter Visit Diagnoses Not on filedocumented in this encounter"
--- OUTSIDE RECORDS SUMMARY | ~2020-05-24 | XMS | Encounter Summary ---
Demographics + + + | Address | [facility] [address] | | | [place] [address] | + + + | Home Phone [...] Organization | [facility] | | | and [...] [place], [place] | | | | | [address] | | + + + + + | Amy Schneider | ECON | [address] | | | | | [place], [place] | | | | | [address] | | + + + + + | Alisha Schneider | ECON | Unknown | | + + + + + Care Team Providers + +------+ + | Care Pharmacists Name | Role | Phone | + [...] [address] | | | | | Chronic | Jet Dempsey MD | [address] | | | | | abdominal | [address] | [place], | | | | | pain | [address] [place] | [place] [address] | | | | | Procedures | [place], [place] | Phone: | | | | | CT Abdomen | [address] | [phone] | | | | | Pelvis w | Phone: | Fax: | | | | | Contrast | [phone] | [phone] | | | | | | Fax: | | | | | | | [phone] | | +--------+--------+ + + + + Reason for Visit + + + | Reason | Comments | + + + | Abdominal Pain | | + + + | Follow-up | | + + + Encounter Details +--------+---------+ + + + | Date | Type | Department | Care Team | Description | +--------+---------+ + + + | 01/25/ | Office | [facility] | Jet Chaney, | Chronic abdominal | | 2013 | Visit | [facility] | [address] | pain (Primary Dx); | | | | [address] | [place] | Chronic low back | | | | [place] | [id number] | pain | | | | [address] | | | | | | [phone] | | | +--------+---------+ + + + [...] + + + | Blood Pressure | 102/72 | 01/25/2014 4:15 PM | | | | | PDT | | + + + + + | Pulse | 72 | 01/25/2014 4:15 PM | | | | | PDT | | + + + + + | Temperature | 37.1 C (98.7 F) | 01/25/2014 4:15 PM | | | | | PDT | | + + + + + | Respiratory Rate | 16 | 01/25/2014 4:15 PM | | | | | PDT | | + + + + + | Oxygen Saturation | - | - | | + + + + + | Inhaled Oxygen | - | - | | | Concentration | | | | + + + + + | Weight | 97.5 kg (214 lb 14.4 | 01/25/2014 4:15 PM | | | | oz) | PDT | | + + + + + | Height | - | - | | + + + + + | Body Mass Index | 39.31 | 08/27/2013 4:43 PM | | | | | PST | | + + + + + documented in this encounter Patient Instructions Patient Instructions Jet Chaney MD - 01/25/2014 5:02 PM PDT BP 102/72 | Pulse 72 | Temp 37.1 C (98.7 F) (Temporal) | Resp 16 | Wt 97.478 kg (214 lb 14.4 oz) | LMP 01/06/2014 Please take the omeprazole 40 mg every single day for 8 weeks Please start the amitriptyline as prescribed to help prevent and control the back pain. Back Care Tips These are things you [...] to the painful area for 20 minutes every 2-4 hours. This will reduce swelling an d pain. Heat (hot shower, hot bath, or heating pad) works well for muscle spasm. You can sta rt with ice, then switch to heat after two days. Some patients feel best alternating ice and heat treatments. Use the one method that [...] object off the floor. Instead, bend your knee s and hips in a squat. Keep your [...] so you are not leaning toward the Spreadshirt wheel. A small pillow or rolled towel behind your lower back may help if you are dri ving long distances. STANDING When standing for long [...] bladder control Numbness in the groin area 9599-0825 [facility], [address] [place] [id number]. All rights reserve d. This information is not intended as a substitute for professional medical care. Always fo llow your healthcare professional's instructions. Abdominal Pain Abdominal pain is pain in the stomach or intestinal area. Everyone has this pain from time to time. In many cases it goes away on its own. But abdominal pain can sometimes be due to a serious problem, such as appendicitis. So it s important to know when to seek help. Causes of abdominal pain There are many possible causes of abdominal pain. Common causes in adults include: Constipation, diarrhea, or gas GERD (movement of stomach acid into the esophagus, also known as acid reflux or heartbur n) Peptic ulcer (a sore in the lining of the stomach or small intestine) Inflammation of the gallbladder or pancreas Gallstones or kidney stones Hernia (bulging of an internal organ through a muscle or other tissue) Urinary tract infections In women, menstrual cramps, fibroids, or endometriosis of the uterus Inflammation or infection of the intestines Diagnosing the cause of abdominal pain Your health care provider will examine you to help find the cause of your pain. If needed, tests will be ordered. Because abdominal pain has so many possible causes, it can be hard to discover the reason for the pain. Giving details about your pain can help. Be ready to tell your health care provider where and when you feel the pain and what makes it better or wors e. Also mention whether you have other symptoms such as fever, tiredness, nausea, vomiting, or changes in bathroom habits. Treating abdominal pain Certain causes of pain, such as appendicitis or a bowel obstruction, need emergency treatme nt. Other problems can be treated with rest, fluids, or medications. Your health care provid er can give you specific instructions for treatment or self-care based on the cause of your pain. If you are have vomiting or diarrhea, sip water or other clear fluids. When you are ready t o eat solid foods again, start with small amounts of emnn-xa-aoguxn, low-fat foods, such as applesauce, toast, or crackers. When to call the doctor Call 911 or go to the hospital right away if you: Can t pass stool and are vomiting Are vomiting blood or have black tarry diarrhea Also have chest, neck, or shoulder pain Feel like you are about to pass out Have pain in your shoulder blades with nausea Have sudden, excruciating abdominal pain Have new, severe pain unlike any you have felt before Have a belly that is rigid, hard, and tender to touch Call your doctor if you have: Pain for more than 5 days Bloating for more than 2 days Diarrhea for more than 5 days Fever of 101F or higher Pain that continues to worsen Unexplained weight loss Continued lack of appetite Blood in the stool How to prevent abdominal pain Here are some tips to help prevent abdominal pain: Eat smaller amounts of food at one time. Avoid greasy, fried, or other high-fat foods. Avoid foods that give you gas. Exercise regularly. Drink plenty of fluids. To help prevent symptoms of gastroesophageal reflux (GERD): Quit smoking. Lose excess weight. Finish eating at least 2 hours before you go to bed or lie down. Elevate the head of your bed. [id number] [facility], [address] [place] [address], [place] [address]. All rights reserve d. This information is not intended as a substitute for professional medical care. Always fo llow your healthcare professional's instructions. documented in this encounter Progress Notes Jet Chaney MD - 01/25/2014 4:50 PM PDTFormatting of this note might be different fr om the original. Subjective: Patient ID: Baudilio Schneider is a 33 y.o. female here for chronic abdominal pain and left lowe r back pain. HPI She continues to have intermittent upper abdominal pain. Pain is located in epigastric are a and RUQ. Pain described as "it hurts." Sometimes feels bloated and nauseous. She does n ot take omeprazole daily, only if she's feeling abdominal pain. Sometimes eating greasy kirk ds makes the pain worse, but not always. No longer painful when laying on right side. No p ain currently. She has chronic left lower back pain x years. The pain does not radiate. She describes th e pain as "not stabbing." Pain is worse when standing for too long or frequently bending fo rward. Sometimes she feels tingling in her left foot if she's been walking for a long time. She has tried flexeril and ibuprofen with some relief. She has not tried PT because it is not covered by insurance. No fever, saddle paresthesias, bowel/bladder dysfunction. Patient's medications, allergies, past medical, surgical, social and family histories were reviewed and updated as appropriate. Review of Systems See HPI BP 102/72 | Pulse 72 | Temp 37.1 C (98.7 F) (Temporal) | Resp 16 | Wt 97.478 kg (214 lb 14.4 oz) | LMP 01/06/2014 Objective: Physical Exam Constitutional: She appears well-developed and well-nourished. No distress. Cardiovascular: Normal rate, regular rhythm and normal heart sounds. Exam reveals no solorzano p and no friction rub. No murmur heard. Pulmonary/Chest: Effort normal. No respiratory distress. She has no wheezes. She has no ral es. Abdominal: Soft. She exhibits no distension and no mass. There is no tenderness. There is n o rebound and no guarding. Obese Musculoskeletal: No spinal or paraspinal tenderness. No SI tenderness Symmetric 5/5 strength in LE's bilaterally. Able to walk on toes, walk on heels, squat. Neurological: Negative straight leg raise Sensation to light touch intact in LE's Patella, Achilles 2+ symmetric Assessment: Baudilio was seen today for abdominal pain and follow-up. Diagnoses and associated orders for this visit: Chronic abdominal pain and dyspepsia: Suspect due to uncontrolled gastritis, though also s uspicious for postcholecystectomy syndrome. She had EGD consistent with gastritis. Unfortu nately she is not taking PPI as prescribed - Resume omeprazole 40 mg twice daily - CT Abdomen Pelvis w Contrast; Future - Weight loss, diet, exercise Chronic low back pain: No concerning radicular symptoms. Unfortunately PT not covered - amitriptyline (ELAVIL) 25 mg tablet; Take 12.5 mg by mouth nightly x 1 week, then increas e to 25 mg nightly. To help control back pain. Educated on side effects - Weight loss, diet, exercise FU: 1 month Prashanth Chaney MD Kemi Jaime LP N - 01/25/2014 4:15 PM PDTPatient is here for a follow-up on her abdominal pain. She also complains of her left lower back hurting daily. documented in this encounter Plan of Treatment Not on filedocumented as of this encounter Results CT Abdomen Pelvis w Contrast (02/04/2014 9:02 AM PDT) + + | Specimen | + + | | + + + + + | Narrative | Performed At | + + + | CT ABDOMEN AND PELVIS WITH CONTRAST: 02/04/2014 8:48 AM | [facility] | | CLINICAL HISTORY: Evaluation of chronic upper abdominal pain. | LAB | | COMPARISON: None TECHNIQUE: Axial images are performed through | | | the abdomen and pelvis following the uneventful intravenous | | | administration of 100 mL Omnipaque 350 contrast. Oral contrast is | | | also present. Coronal and sagittal reformations are also performed. | | | FINDINGS: On the first axial image of the study a 3.4 mm | | | nodule is seen in the right middle lobe. No other pulmonary | | | parenchymal abnormalities. A small amount of focal fatty | | | infiltrative changes present adjacent to the falciform ligament. No | | | other hepatic abnormality. Gallbladder is surgically absent. Pancreas | | | and spleen are within normal limits. Adrenal glands are normal. | | | Kidneys show symmetric contrast enhancement. No solid renal mass. No | | | stones or collecting system abnormality. Aorta and inferior vena cava | | | are unremarkable. Small bowel is nondilated. Oral contrast is | | | present to the distal small bowel level. Ileocecal junction is | | | normal. A normal appendix is seen. Colon shows normal caliber and | | | stool content. In the pelvis uterus is midline and normal in size. | | | Both ovaries are prominent with low density 4.3 cm cyst on the right | | | ovary and 3.9 cm cyst on the left. Both of these apparent cystic | | | structures show intermediate density. Urinary bladder appears normal. | | | There is no pelvic free fluid. No mesenteric inflammatory change or | | | adenopathy is seen. No body wall or bony abnormality. | | | IMPRESSION - 1. Bilaterally prominent ovaries with approximately 4 | | | cm cysts with intermediate density fluid. Further evaluation with | | | pelvic ultrasound would be recommended. 2. 3.4 mm nodule in the | | | right middle lobe. In a low risk patient this would require no | | | further follow-up. In a high-risk patient, repeat CT in one year | | | would be recommended. 3. Postop cholecystectomy. Dictated and | | | Signed by: Richard Richter MD Electronically signed: 02/04/2014 | | | 12:08 PM | | + + + + + | Procedure Note | + + | Kranthi, Rad Results In - 02/04/2014 12:[address] ABDOMEN AND PELVIS WITH CONTRAST: | | 02/04/2014 8:48 AM CLINICAL HISTORY: Evaluation of chronic upper abdominal pain. | | COMPARISON: None TECHNIQUE: Axial images are performed through the abdomen and pelvis | | followingthe uneventful intravenous administration of 100 mL Omnipaque 350 contrast. | | Oral contrast is also present. Coronal and sagittal reformations are alsoperformed. | | FINDINGS: On the first axial image of the study a 3.4 mm nodule is seen in theright | | middle lobe. No other pulmonary parenchymal abnormalities.A small amount of focal fatty | | infiltrative changes present adjacent to thefalciform ligament. No other hepatic | | abnormality. Gallbladder is surgicallyabsent. Pancreas and spleen are within normal | | limits. Adrenal glands are normal.Kidneys show symmetric contrast enhancement. No solid | | renal mass. No stones orcollecting system abnormality. Aorta and inferior vena cava are | | unremarkable.Small bowel is nondilated. Oral contrast is present to the distal small | | bowellevel. Ileocecal junction is normal. A normal appendix is seen. Colon showsnormal | | caliber and stool content.In the pelvis uterus is midline and normal in size. Both | | ovaries are prominentwith low density 4.3 cm cyst on the right ovary and 3.9 cm cyst on | | the left.Both of these apparent cystic structures show intermediate density. | | Urinarybladder appears normal. There is no pelvic free fluid. No mesentericinflammatory | | change or adenopathy is seen. No body wall or bony abnormality. IMPRESSION - 1. | | Bilaterally prominent ovaries with approximately 4 cm cysts with intermediatedensity | | fluid. Further evaluation with pelvic ultrasound would be recommended.2. 3.4 mm nodule | | in the right middle lobe. In a low risk patient this wouldrequire no further follow-up. | | In a high-risk patient, repeat CT in one yearwould be recommended.3. Postop | | cholecystectomy.Dictated and Signed by: Richard Richter MD Electronically signed: | | 02/04/2014 12:08 PM | |In the pelvis uterus is midline and normal in size. Both ovaries are prominent | |with low density 4.3 cm cyst on the right ovary and 3.9 cm cyst on the left. | |Both of these apparent cystic structures show intermediate density. Urinary | |bladder appears normal. There is no pelvic free fluid. No mesenteric | |inflammatory change or adenopathy is seen. No body wall or bony abnormality. | | | | | |IMPRESSION - | |1. Bilaterally prominent ovaries with approximately 4 cm cysts with intermediate | |density fluid. Further evaluation with pelvic ultrasound would be recommended. | | | |2. 3.4 mm nodule in the right middle lobe. In a low risk patient this would | |require no further follow-up. In a high-risk patient, repeat CT in one year | |would be recommended. | | | |3. Postop cholecystectomy. | | | |Dictated and Signed by: Richard Richter MD | | Electronically signed: 02/04/2014 12:08 PM | + + + +---------+ + + | Performing | Address | City/State/Zipcode | Phone Number | | Organization | | | | + +---------+ + + | [facility] | | | [phone] | + +---------+ + + | [facility] | | | [phone] | + +---------+ + + documented in this encounter Visit Diagnoses + + | Diagnosis | + + | Chronic abdominal pain - Primary Abdominal pain, unspecified site | + + | Chronic low back pain Lumbago | + + documented in this encounter
--- OUTSIDE RECORDS SUMMARY | ~2020-05-24 | XMS | Encounter Summary ---
Demographics + + + | Address | [address] | | | [place] [address] | + + + | Home Phone | | + + + | Preferred Language | Unknown | + + + | Marital Status | Single | + + + | Sikhism Affiliation | 1041 | + + + | Race | Unknown | + + + | Ethnic Group | or | + + + Author + + + | Author | [facility] | | | and [place] | + + + | Organization | [facility] | | | [...] [place], [place] | | | | | [address] | | + + + + + | Amy Schneider | ECON | [address] | | | | | [place], [place] | | | | | [address] | | + + + + + | Alisha Schneider | ECON | Unknown | | + + + + + Care Team Providers + +------+ + | Care Park Worker Name | Role | Phone | + [...] Description | +--------+---------+ + + + | 05/31/ | Office | [facility] | Jet Chaney, | Chronic midline low | | 2016 | Visit | [facility] | [address] | back pain without | | | | [address] | [place], [place] | sciatica (Primary | | | | [place], [place] | [address] | Dx); Cervical | | | | [address] | | radicular pain; | | | | [phone] | | Costochondritis; | | | | | | Cutaneous horn; | | | | | | Tobacco abuse; Need | | | | | | for influenza | | | | | [...] + + + | Blood Pressure | 126/80 | 05/31/2016 4:20 PM | | | | | PDT | | + + + + + | Pulse | 91 | 05/31/2016 4:20 PM | | | | | PDT | | + + + + + | Temperature | 36.8 C (98.2 F) | 05/31/2016 4:20 PM | | | | | PDT | | + + + + + | Respiratory Rate | 16 | 05/31/2016 4:20 PM | | | | | PDT | | + + + + + | Oxygen Saturation | 98% | 05/31/2016 4:20 PM | | | | | PDT | | + + + + + | Inhaled Oxygen | - | - | | | Concentration | | | | + + + + + | Weight | 91.6 kg (201 lb 14.4 | 05/31/2016 4:20 PM | | | | oz) | PDT | | + + + + + | Height | 157.5 cm (5' 2") | 05/31/2016 4:20 PM | | | | | PDT | | + + + + + | Body Mass Index | 36.93 | 05/31/2016 4:20 PM | | | | | PDT | | + + + + + documented in this encounter Patient Instructions Patient Instructions Jet Chaney MD - 05/31/2016 4:51 PM PDTBP 126/80 mmHg | Pulse 9 1 | Temp(Src) 36.8 C (98.2 F) (Temporal) | Resp 16 | Ht 1.575 m (5' 2") | Wt 91.581 kg ( 201 lb 14.4 oz) | BMI 36.92 kg/m2 | SpO2 98% Keep up the great work not smoking. Quitting smoking is the best thing you can do for your health. Keep up the great work with the weight loss! Continue the nortriptyline 50 mg nightly. Follow-up with Dr Moore as scheduled. Chest Wall Pain: Costochondritis The chest pain that you have had today is caused by costochondritis. This condition is caus ed by an inflammation of the cartilage joining your ribs to your breastbone. It is not cause d by heart or lung problems.The inflammation may have been brought on by a blow to the soni st, lifting heavy objects, intense exercise, or an illness that made you cough and sneeze. I toften occursduring times of emotional stress.It can be painful, but it is not dangero us. It usually goes away in 1 to 2 weeks. But it may happen again. Rarely, a more serious co ndition may cause symptoms similar to costochondritis. That s why it s important to watc h for the warning signs listed below. Home care Follow these guidelines when caring for yourself at home: If you feel that emotional stress is a cause of your condition, try to figure out the so urces of that stress. It may not be obvious! Learn ways to deal with the stress in your life . This can include regular exercise, muscle relaxation, meditation, or simply taking time ou t for yourself. For more information about this, talk with your health care provider. Or go to your local library and look at books on stress reduction. You may use acetaminophen or ibuprofen to control pain, unless another pain medicine was prescribed. If you have liver disease or ever had a stomach ulcer, talk with your health ca re provider before using these medicines. You can also help ease pain by using a hot, wet compress or heating pad. Use this with o r without a medicated skin cream that helps relieves pain. Do stretching exercise as advised by your provider. Take any prescribed medicines as directed. Follow-up care Follow up with your health care provider, or as advised, if you do not start to get better in the next 2 days. When to seek medical advice Call your health care provider right away if any of these occur: A change in the type of pain. Call if it feels different, becomes more serious, lasts lo nger, or spreads into your shoulder, arm, neck, jaw, or back. Shortness of breath or pain gets worse when you breathe Weakness, dizziness, or fainting Cough with dark-colored sputum (phlegm) or blood Abdominal pain Dark red or black stools Fever of 100.4F (38C) or higher, or as directed by your health care provider [id number] [employer] [address] [place] [address], [place] [address]. All righ ts reserved. This information is not intended as a substitute for professional medical care. Always follow your healthcare professional's instructions. documented in this encounter Progress Notes Jet Chaney MD - 05/31/2016 4:42 PM PDTFormatting of this note might be different fr om the original. Subjective: Patient ID: Baudilio Schneider is a 35 y.o. female here for neck, back and chest pain. HPI She increased the nortriptyline to 50 mg nightly and does feel like it has helped. Her nec k and back pain are much improved. No longer daily. Her neck pain is no longer daily but close to daily. Located on left side, described as "t ight." It can still radiate to left side of face and down her arm, but not as frequently. Pain fluctuates between 0-7/10. Nothing makes the pain worse, comes randomly. Not related to activity level or body movements. She takes ibuprofen 600 mg ~1-2 times per week which h elps a little bit. She has intermittent low back pain, left worse than right. But no longer daily. Pain does not radiate. Fluctuates between 0-4/10, currently no pain. Pain worse with frequent bendi ng at the waist. She takes ibuprofen 600 mg ~1-2 times per week and it does help. She did not resume PT. No saddle paresthesias, bowel/bladder dysfunction (other than chronic constipation which sh e controls with herbal teas). Yesterday her mid chest felt sore like a bruise. Worse with palpation. Ibuprofen helped. This has happened in the past. It has resolved. Unrelated to exertion. No fever, cough, hemoptysis, orthopnea, SOB, wheezing. Patient's medications, allergies, past medical, surgical, social and family histories were obtained and reviewed as appropriate. Review of Systems BP 126/80 mmHg | Pulse 91 | Temp(Src) 36.8 C (98.2 F) (Temporal) | Resp 16 | Ht 1.575 m (5' 2") | Wt 91.581 kg (201 lb 14.4 oz) | BMI 36.92 kg/m2 | SpO2 98% Objective: Physical Exam Constitutional: Very pleasant, well developed, NAD Neck: Normal range of motion. Neck supple. No thyromegaly present. Cardiovascular: Normal rate, regular rhythm, normal heart sounds and intact distal pulses. Exam reveals no gallop and no friction rub. No murmur heard. Pulmonary/Chest: Breath sounds normal. No respiratory distress. She has no wheezes. She has no rales. She exhibits tenderness (Mild left sided sternal tenderness, reproduces her pain) . Musculoskeletal: She exhibits no edema. Symmetric 5/5 strength with shoulder abduction, flex; elbow flex/ext, wrist flext 5/5 knee flex/ext; ankle flex/ext Neurological: Spurling negative Biceps trace bilaterally Patella 1+ symmetric Skin: ~2.5 mm wide x 5 mm long pedunculated papule with rough hyperkeratotic distal end on right side of neck Assessment: Baudilio was seen today for back pain. Diagnoses and all orders for this visit: Chronic midline low back pain without sciatica: Improved with PT and nortriptyline. She wo uld still appreciate physiatry's evaluation. No concerning findings on MRI. - Continue great work with weight loss - Continue nortriptyline 50 mg nightly - Resume PT - FU with Dr Moore as planned. Greatly appreciate his assistance Orders: - nortriptyline (PAMELOR) 50 MG capsule; Take 1 capsule by mouth nightly. To help preve nt back pain. Cervical radicular pain: Benign exam without red flag s/s - Continue nortriptyline 50 mg nightly - Appreciate physiatry's evaluation and recommendations Costochondritis - NSAIDs - Educated on warning signs Cutaneous horn - Return for excision Tobacco abuse: Quit 1 week ago - Continue great work abstaining Flu vaccine today FU: 2 months for chronic issues. As soon as she is able for skin excision Prashanth Chaney MD lay PRINCE Ling - 05/31/2016 4:20 PM PDTPatient is here for a follow-up on her back pain and also complai ns of soreness on her chest like she has a bruise. She is due for flu. After obtaining informed consent, the immunization is given by Cele CROSS. documented in this encounter Plan of Treatment Not on filedocumented as of this encounter Visit Diagnoses + + | Diagnosis | + + | Chronic midline low back pain without sciatica - Primary | + + | Cervical radicular pain Brachial neuritis or radiculitis nos | + + | Costochondritis Tietze's disease | + + | Cutaneous horn Other specified dermatoses | + + | Tobacco abuse Tobacco use disorder | + + | Need for influenza vaccination Need for prophylactic vaccination and inoculation | | against influenza | + + documented in this encounter
--- OUTSIDE RECORDS SUMMARY | ~2020-05-24 | XMS | Encounter Summary ---
Demographics + + + | Address | [facility] | | | [place] [address] | + + + | Home Phone [...] + + + | Author | [facility] | | | and [place] | + + + | Organization | [facility] | | [...] [place], [place] | | | | | [address] | | + + + + + | Amy Schneider | ECON | [address] | | | | | [place], [place] | | | | | [address] | | + + + + + | Alisha Schneider | ECON | Unknown | | + + + + + Care Team Providers + +------+ + | Care Fiscal Services Manager Name | Role | Phone | + +------+ + PCP | Unavailable | + +------+ + Encounter Details +--------+ + + + + | Date | Type | Department | Care Team | Description | +--------+ + + + + | 11/01/ | Hospital | [facility] | Eloy Moore MD | | | 2009 - | Encounter | MED CTR MP INTRA OP | [address] [facility] | | | | | [address] | [address] [place] | | | 11/02/ | | [place] | [address] | | | 2009 | | [address] | | | | | | [phone] | | | +--------+ + + + [...]
--- OUTSIDE RECORDS SUMMARY | ~2020-05-24 | XMS | Encounter Summary ---
Demographics + + + | Address | [facility] | | | [place] [address] | + + + | Home Phone [...] + | Organization | [facility] | | | and [...] [place], [place] | | | | | [address] | | + + + + + | Amy Schneider | ECON | [address] | | | | | [place], [place] | | | | | [address] | | + + + + + | Alisha Schneider | ECON | Unknown | | + + + + + Care Team Providers + +------+ + | Care Building Architectural Designer Name | Role | Phone | + +------+ + | Jet Chaney MD | PCP | | + +------+ + Encounter Details +--------+ + + + + | Date | Type | Department | Care Team | Description | +--------+ + + + + | 01/09/ | Hospital | [facility] | Med Hu, | abdominal discomfort | | 2018 | Encounter | MED CTR ANNALEE XRAY | GEOPHYSICAL ENGINEER [address] | | | | | [address] | [place] | | | | | [place] | [address] | | | | | [address] | | | | | | [phone] | | | +--------+ + + + [...] + +--------+ + + + | XR ABDOMEN 2 VW | Routin | 01/09/2018 | abdominal | Results for this | | | e | 11:42 AM | discomfort | procedure are in the | | | | PDT | | results section. | + +--------+ + + + documented in this encounter Results XR Abdomen 2 VW [...] Diagnosis | + + | abdominal discomfort | + + documented in this encounter"
--- OUTSIDE RECORDS SUMMARY | ~2020-05-24 | XMS | Encounter Summary ---
Demographics + + + | Address | [facility] | | | [place] [address] | + + + | Home Phone [...] | [facility] | | | and [...] [place], [place] | | | | | [address] | | + + + + + | Amy Schneider | ECON | [address] | | | | | [place], [place] | | | | | [address] | | + + + + + | Alisha Schneider | ECON | Unknown | | + + + + + Care Team Providers + +------+ + | Care Mechanical Integrity Specialist Name | Role | Phone | + +------+ + | Jet Chaney MD | PCP | | + +------+ + Reason for Visit + + + | Reason | Comments | + + + | Back Pain | Follow-up | + + + Encounter Details +--------+---------+ + + + | Date | Type | Department | Care Team | Description | +--------+---------+ + + + | 08/06/ | Office | [facility] | Jet Chaney, | Chronic low back | | 2014 | Visit | [facility] [place] | [address] | pain (Primary Dx); | | | | [address] | [place] | Right flank pain; | | | | [place] | [address] | Chronic abdominal | | | | [address] | | pain | | | | [phone] | | | +--------+---------+ + + + [...] + + + | Blood Pressure | 122/84 | 08/06/2014 4:28 PM | | | | | PST | | + + + + + | Pulse | 64 | 08/06/2014 4:28 PM | | | | | PST | | + + + + + | Temperature | 36.7 C (98.1 F) | 08/06/2014 4:28 PM | | | | | PST | | + + + + + | Respiratory Rate | 16 | 08/06/2014 4:28 PM | | | | | PST | | + + + + + | Oxygen Saturation | 96% | 08/06/2014 4:28 PM | | | | | PST | | + + + + + | Inhaled Oxygen | - | - | | | Concentration | | | | + + + + + | Weight | 93 kg (205 lb) | 08/06/2014 4:28 PM | | | | | PST | | + + + + + | Height | 157.5 cm (5' 2") | 08/06/2014 4:28 PM | | | | | PST | | + + + + + | Body Mass Index | 37.49 | 08/06/2014 4:28 PM | | | | | PST | | + + + + + documented in this encounter Patient Instructions Patient Instructions Jet Chaney MD - 08/06/2014 5:14 PM PSTBP 122/84 | Pulse 64 | T emp 36.7 C (98.1 F) (Temporal) | Resp 16 | Ht 1.575 m (5' 2") | Wt 92.987 kg (205 lb) | BMI 37.49 kg/m2 | SpO2 96% | LMP 07/19/2014 The best thing you can do for your health is continue to lose weight. For the right sided flank pain: I think the pain is coming from your muscles. Try taking an ibuprofen 800 mg in the evening to see if that improves the pain. Follow Up with your doctor or as advised by our staff for further evaluation if your symptoms are not improving over the next few days. Return Promptly or contact your doctor if any of the following occur: Repeated vomiting Fever of 100.4F (38C) or higher, or as directed by your healthcare provider Increasing flank pain Pain that spreads to the front of the abdomen Dizziness, weakness or fainting Blood in your urine Burning with urination or frequent urination Increasing pain in the leg Numbness or weakness in the leg [id number] [facility], [address] [place] [address]. All rights reserve d. This information is not intended as a substitute for professional medical care. Always fo llow your healthcare professional's instructions. documented in this encounter Progress Notes Jet Chaney MD - 08/06/2014 4:57 PM PSTFormatting of this note might be different fr om the original. Subjective: Patient ID: Baudilio Schneider is a 33 y.o. female here for right flank pain, chronic low back p ain. HPI She is taking nortriptyline 25 mg nightly. She is tolerating it well. It has helped her b ack pain - pain is less severe or frequent. However she continues to have lower back pain 2 -3 times per week. Located in left lower back and does not radiate. Pain has not been bad enough to where she has needed ibuprofen in quite some time. Pain is worse if she lays down or stands in one place for long periods. Currently without back pain. No paresthesias. She has not tried PT because it is not covered by insurance. No fever, saddle paresthesias, bowel/bladder dysfunction (other than occasional constipation), foot drop. For ~the past 2 months she's had intermittent right flank pain radiating to her right upper quadrant. Described as an ache, rating 10/10 at its worst. Pain comes and goes intermitte ntly, worst at night. Pain is worse when she lays on her right side and worse with just a l ight touch of the skin. Pain resolves on its own as the day progresses, nothing seems to ma ke it better. Not related to eating. No fever, N/V, hematuria, dysuria. Her epigastric pain has resolved. She is taking omeprazole 40 mg several days per week, of ten forgets it. Patient's medications, allergies, past medical, surgical, social and family histories were reviewed and updated as appropriate. Review of Systems See HPI BP 122/84 | Pulse 64 | Temp 36.7 C (98.1 F) (Temporal) | Resp 16 | Ht 1.575 m (5' 2") | Wt 92.987 kg (205 lb) | BMI 37.49 kg/m2 | SpO2 96% | LMP 07/19/2014 Objective: Physical Exam Constitutional: She appears well-developed and well-nourished. No distress. Cardiovascular: Regular rhythm and normal heart sounds. Exam reveals no gallop and no fric tion rub. No murmur heard. Pulmonary/Chest: Effort normal. No respiratory distress. She has no wheezes. She has no ral es. Abdominal: Soft. She exhibits no distension and no mass. There is no tenderness. There is n o rebound and no guarding. Mild right CVA tenderness to just light touch Skin: No dermatomal rash Assessment: Baudilio was seen today for back pain. Diagnoses and associated orders for this visit: Baudilio was seen today for back pain. Diagnoses and associated orders for this visit: Chronic low back pain: Marked improvement with nortriptyline. - ibuprofen (ADVIL,MOTRIN) 800 MG tablet; Take 1 tablet by mouth every 8 hours as needed fo r Pain. Right flank pain: Chronic. Not severe. Exam consistent with myofascial. Previous CT unr emarkable other than small lung nodule which is being monitored. Previous US unremarkable. - ibuprofen (ADVIL,MOTRIN) 800 MG tablet; Take 1 tablet by mouth every 8 hours as needed fo r Pain. Chronic abdominal pain: Marked improvement - omeprazole (PRILOSEC) 40 MG capsule; Take 1 capsule by mouth Daily. To help abdominal alonzo n FU: prn Prashanth Chaney MD Kemi Le LP N - 08/06/2014 4:23 PM PSTPatient is here for a follow-up on her back pain. She complains of her right upper back and into her right side hurting for the past 2 months. documented in this encounter Plan of Treatment Not on filedocumented as of this encounter Visit Diagnoses + + | Diagnosis | + + | Chronic low back pain - Primary Lumbago | + + | Right flank pain Abdominal pain, unspecified site | + + | Chronic abdominal pain Abdominal pain, unspecified site | + + documented in this encounter
--- OUTSIDE RECORDS SUMMARY | ~2020-05-24 | XMS | Encounter Summary ---
Demographics + + + | Address | [facility] | | | [place] [address] | + + + | Home Phone [...] + | Organization | [facility] | | | and [place] [...] [place], [place] | | | | | [address] | | + + + + + | Amy Schneider | ECON | [address] | | | | | [place], [place] | | | | | [address] | | + + + + + | Alisha Schneider | ECON | Unknown | | + + + + + Care Team Providers + +------+ + | Care Wool Mixer Name | Role | Phone | + +------+ + PCP | Unavailable | + +------+ + Encounter Details +--------+ + + + + | Date | Type | Department | Care Team | Description | +--------+ + + + + | 11/03/ | Hospital | [facility] | Sylvain Manzano | | | 2009 | Encounter | MED CTR EMERGENCY | MD Kike [address] | | | | | [address] [address] | [facility] | | | | | [place], [place] | [place] [address] | | | | | [address] | [phone] | | | | | [phone] | | | +--------+ + + + [...]
--- OUTSIDE RECORDS SUMMARY | ~2020-05-24 | XMS | Encounter Summary ---
Demographics + + + | Address | [facility] | | | [place] [address] | + + + | Home Phone | | + + + | Preferred Language | Unknown | + + + | Marital Status | Single | + + + | Sabianist Affiliation | 1041 | + + + | Race | Unknown | + + + | Ethnic Group | or | + + + Author + + + | Author | [facility] | | | and [place] | + + + | Organization | [facility] | [...] [place], [place] | | | | | [address] | | + + + + + | Amy Schneider | ECON | [address] | | | | | [place], [place] | | | | | [address] | | + + + + + | Alisha Schneider | ECON | Unknown | | + + + + + Care Team Providers + +------+ + | Care Cripple Cutter Name | Role | Phone | + +------+ + | Dot Paredes MD | PCP | | + +------+ + Encounter Details +--------+ + + + + | Date | Type | Department | Care Team | Description | +--------+ + + + + | 01/25/ | Hospital | [facility] | | | | 2009 | Encounter | MED CTR XRAY [address] | | | | | | [place] | | | | | | [place] [address] | | | | | | [phone] | | | +--------+ + + + [...]
--- OUTSIDE RECORDS SUMMARY | ~2020-05-24 | XMS | Encounter Summary ---
Demographics + + + | Address | [address] | | | [place] [address] | + + + | Home Phone [...] | Organization | [facility] | | | and [place] [...] [place], [place] | | | | | [address] | | + + + + + | Amy Schneider | ECON | [address] | | | | | [place], [place] | | | | | [address] | | + + + + + | Alisha Schneider | ECON | Unknown | | + + + + + Care Team Providers + +------+ + | Care Crew Mess Attendant Name | Role | Phone | + +------+ + | Jet Chaney MD | PCP | | + +------+ + Reason for Visit + +--------+ + | Reason | Onset | Comments | | | Date | | + +--------+ + | Results, Pathology | 08/31/ | | | | 2015 | | + +--------+ + Encounter Details +--------+ + + + + | Date | Type | Department | Care Team | Description | +--------+ + + + + | 08/31/ | Telephone | [facility] | [place] MD | Results, Pathology | | 2016 | | GASTROENTEROLOGY | [address], [place] | | | | | [address] [place] | [address] [place], [place] | | | | | [address] [place], [place] | [address] | | | | | [address] | | | | | | [phone] | | | +--------+ + + + [...] Telephone Encounter - Fifi Zimmerman RN - 08/31/2016 2:49 PM PSTLeft message return ing her call. Esophageal biopsies positive for reflux. H. pylori negative, duodenal bi opsies negative. Is she doing better on the omeprazole? Sent my chart message.Carlos A joaquin signed by Fifi Zimmerman RN at 08/31/2016 2:50 PM PSTTelephone Encounter - Spring Shelby - 08/31/2016 11:17 AM PSTPatient returned call, please give her a callback.Ana Lilia ctronically signed by Spring Mcclelland at 08/31/2016 11:17 AM PSTTelephone Encounter - Fifi Bonilla i, RN - 08/31/2016 10:08 AM PSTLeft message asking patient to call for results. H. pylori biopsy negative duodenal biopsies normal. Esophageal biopsies positive for refl ux. have her symptoms improved on the omeprazole?. documented in this encounter Plan of Treatment Not on filedocumented as of this encounter Visit Diagnoses Not on filedocumented in this encounter"
--- OUTSIDE RECORDS SUMMARY | ~2020-05-24 | XMS | Encounter Summary ---
Demographics + + + | Address | [facility] | | | [place] [address] | + + + | Home Phone [...] | Organization | [facility] | | | and [...] [place], [place] | | | | | [address] | | + + + + + | Amy Schneider | ECON | [address] | | | | | [place], [place] | | | | | [address] | | + + + + + | Alisha Schneider | ECON | Unknown | | + + + + + Care Team Providers + +------+ + | Care Commercial Carpenter Name | Role | Phone | + +------+ + | Jet Chaney MD | PCP | | + +------+ + Reason for Visit +---------+--------+ + | Reason | Onset | Comments | | | Date | | +---------+--------+ + | Results | 09/25/ | endoscopy | | | 2013 | | +---------+--------+ + Encounter Details +--------+ + + + + | Date | Type | Department | Care Team | Description | +--------+ + + + + | 09/25/ | Telephone | [facility] | Hill Montana MD | Results (endoscopy) | | 2013 | | GASTROENTEROLOGY | [address] | | | | | [address] | [address] | | | | | [address] | [id number] | | | | | [address] | | | | | | [phone] | | | +--------+ + + + [...] Telephone Encounter - Maryanne Leonard RN - 09/25/2013 11:33 AM PSTCalled patient back let he r know that has not reviewed pathology results yet advised as soon as he does then will be calling her with results and recommendations, she verbalized understanding.Delma bergman signed by Maryanne Leonard RN at 09/25/2013 11:35 AM PSTTelephone Encounter - King Saleh Ruma - 09/25/2013 11:22 AM PSTPatient called & stated she had procedure on 09/21/13 . She is wondering if she needs to follow up w/ pcp or schedule appt with Dr. Montana?Electron jemal signed by King Saleh at 09/25/2013 11:23 AM PSTdocumented in this encounter Plan of Treatment Not on filedocumented as of this encounter Visit Diagnoses Not on filedocumented in this encounter"
--- OUTSIDE RECORDS SUMMARY | ~2020-05-24 | XMS | Encounter Summary ---
Demographics + + + | Address | [facility] [address] | | | [place] [address] | + + + | Home Phone | | + + + | Preferred Language | Unknown | + + + | Marital Status | Single | + + + | Confucianist Affiliation | 1041 | + + + | Race | Unknown | + + + | Ethnic Group | or | + + + Author + + + | Author | [facility] | | | and [place] | + + + | Organization | [facility] | | | and [place] [...] [place], [place] | | | | | [address] | | + + + + + | Amy Schneider | ECON | [address] | | | | | [place], [place] | | | | | [address] | | + + + + + | Alisha Schneider | ECON | Unknown | | + + + + + Care Team Providers + +------+ + | Care Internal Corrosion Specialist Name | Role | Phone | + +------+ + | Jet Chaney MD | PCP | | + +------+ + Encounter Details +--------+ + + + + | Date | Type | Department | Care Team | Description | +--------+ + + + + | 06/02/ | Hospital | [facility] | Jet Chaney, | Abdominal pain; | | 2012 | Encounter | [facility] | MD [address] | Elevated liver | | | | [address] [place] | [place], [place] | enzymes; | | | | [place], [place] | [address] | Hypothyroidism; | | | | [address] | | Cervical strain | | | | [phone] | | | +--------+ + + + [...] Take 1 capsule by | 30 | 3 | 06/02/20 | | | (PRILOSEC) 20 mg | mouth Daily. | capsule | | 13 | 3 | | capsuleIndications: | | | | [...] + +--------+ + + + | XR CERVICAL SPINE 2 | Routin | 06/03/2013 | Cervical strain | Results for this | | OR 3 VIEWS | e | 10:09 AM | | procedure are in the | | | | PDT | | results section. | + +--------+ + + + | CELIAC PANEL, IGA | Routin | 06/02/2013 | | Results for this | | AND IGG | e | 5:32 PM | | procedure are in the | | | | PDT | | results section. | + +--------+ + + + | HEPATITIS PANEL, | Routin | 06/02/2013 | | Results for this | | CHRONIC | e | 5:32 PM | | procedure are in the | | | | PDT | | results section. | + +--------+ + + + | CBC WITH | Routin | 06/02/2013 | | Results for this | | DIFFERENTIAL | e | 5:32 PM | | procedure are in the | | | | PDT | | results section. | + +--------+ + + + | TSH | Routin | 06/02/2013 | | Results for this | | | e | 5:32 PM | | procedure are in the | | | | PDT | | results section. | + +--------+ + + + | LIPASE | Routin | 06/02/2013 | | Results for this | | | e | 5:32 PM | | procedure are in the | | | | PDT | | results section. | + +--------+ + + + | COMPREHENSIVE | Routin | 06/02/2013 | | Results for this | | METABOLIC PANEL | e | 5:32 PM | | procedure are in the | | | | PDT | | results section. | + +--------+ + + + | HEPATITIS PANEL, | Routin | 06/02/2013 | Elevated liver | Results for this | | CHRONIC | e | 5:27 PM | enzymes | procedure are in the | | | | PDT | | results section. | + +--------+ + + + | CBC WITH | Routin | 06/02/2013 | Abdominal pain | Results for this | | DIFFERENTIAL | e | 5:27 PM | Elevated liver | procedure are in the | | | | PDT | enzymes | results section. | + +--------+ + + + | TSH | Routin | 06/02/2013 | Hypothyroidism | Results for this | | | e | 5:27 PM | | procedure are in the | | | | PDT | | results section. | + +--------+ + + + | LIPASE | Routin | 06/02/2013 | Abdominal pain | Results for this | | | e | 5:27 PM | | procedure are in the | | | | PDT | | results section. | + +--------+ + + + | COMPREHENSIVE | Routin | 06/02/2013 | Abdominal pain | Results for this | | METABOLIC PANEL | e | 5:27 PM | Elevated liver | procedure are in the | | | | PDT | enzymes | results section. | + +--------+ + + + documented in this encounter Results XR Cervical Spine 3 Vws or Less (06/03/2013 10:09 AM PDT) + + | Specimen | + + | | + + + + + | Narrative | Performed At | + + + | [facility] | [place] | | Department [address] [facility] [facility] | [facility] | | [ rep [address]] [ rep [facility] | | st zip] Signed | - IMAGING | | | | | Patient Name: PAVITHRA SCHNEIDER Physician: | | | ADELINE.[id number] : 1980 Age: 32 Sex: F Unit #: [id number] | | | Exam Date: 06/02/13 Location: [facility] | | | Report #: [id number] Page: | | | %(RAD)RES..mtdd.print.filter("pg") of %(RAD) | | | RES..mtdd.print.filter("tpg") | | | | | | Accession Number: [id number] | | | X-RAY CERVICAL SPINE, THREE VIEWS CLINICAL HISTORY: | | | CHRONIC NECK PAIN WITHOUT RADICULAR SYMPTOMS. FINDINGS: | | | There is very mild reversal of the cervical lordosis centered at the | | | level of C5, as can be seen with muscle spasm. Vertebral body | | | alignment is otherwise maintained. Vertebral body heights and disk | | | heights are maintained. No significant degenerative change is | | | noted. The lateral masses of C1 and C2 are well aligned. There | | | is no evidence of fracture of the odontoid. The prevertebral soft | | | tissues are unremarkable. IMPRESSION: VERY MILD | | | REVERSAL OF THE CERVICAL LORDOSIS, CAN BE SEEN WITH MUSCLE SPASM. | | | NO EVIDENCE OF FRACTURE OR SUBLUXATION. Dictated | | | Date/Time: 06/03/2013 10:09 Transcribed Date/Time: 06/03/2013 | | | 11:11 Isobutylene Operator Chief: <<Signature | | | on File>> | | | Andrea | | | Gallo Elaine MD06/04/13 0820 <Electronically signed by Andrea Holder | | Rob Elaine MD> Andrea Elaine MD 06/03/13 1009 | | | Isobutylene Operator Chief: Daniel Ftzhgslmoqkyn10/18/13 1111 | | | Jet Chaney MD | | + + + + + + + + | Performing | Address | City/State/Zipcode | Phone Number | | Organization | | | | + + + + + | [facility] | [address] | [place] | [phone] | | [facility] | | [address] | | | - IMAGING | | | | + + + + + CBC with Differential (06/02/2013 5:32 PM PDT) + + + + + + | Component | Value | Ref Range | Performed | Pathologist | | | | | At | Signature | + + + + + + | MANUAL | NO | | [facility] | | | DIFFERENTIA | | | [facility] | | | L ? | | | MEDICAL | | | | | | CENTER - | | | | | | LABORATORY | | + + + + + + | White Blood | 11.7 (H) | 4.0 - 11.0 K/uL | [facility] | | | Cells | | | [facility] | | | | | | MEDICAL | | | | | | CENTER - | | | | | | LABORATORY | | + + + + + + | Red Blood | 4.72 | 3.70 - 5.20 | [facility] | | | Cells | | M/uL | [facility] | | | | | | MEDICAL | | | | | | CENTER - | | | | | | LABORATORY | | + + + + + + | Hemoglobin | 14.8 | 11.5 - 16.0 | [facility] | | | | | gm/dL | [facility] | | | | | | MEDICAL | | | | | | CENTER - | | | | | | LABORATORY | | + + + + + + | Hematocrit | 45.3 | 34.0 - 47.0 % | [facility] | | | | | | [facility] | | | | | | MEDICAL | | | | | | CENTER - | | | | | | LABORATORY | | + + + + + + | MCV | 96.0 | 83.0 - 101.0 fL | [facility] | | | | | | [facility] | | | | | | MEDICAL | | | | | | CENTER - | | | | | | LABORATORY | | + + + + + + | MCH | 31.3 | 28.0 - 35.0 pg | [facility] | | | | | | [facility] | | | | | | MEDICAL | | | | | | CENTER - | | | | | | LABORATORY | | + + + + + + | MCHC | 32.7 | 32.0 - 36.0 | [facility] | [...] + + + + | % | 73.0 | 45 - 75 % | [facility] | | | Neutrophils | | | [facility] | | | | | | MEDICAL | | | | | | CENTER - | | | | | | LABORATORY | | + + + + + + | % | 16.9 (L) | 20 - 45 % | [facility] | | | Lymphocytes | | | [facility] | | | | | | MEDICAL | | | | | | CENTER - | | | | | | LABORATORY | | + + + + + + | % Monocytes | 8.8 | 4 - 12 % | [facility] | | | | | | [facility] | | | | | | MEDICAL | | | | | | CENTER - | | | | | | LABORATORY | | + + + + + + | % | 0.7 | 0 - 5 % | [facility] | | | Eosinophils | | | [facility] | | | | | | MEDICAL | | | | | | CENTER - | | | | | | LABORATORY | | + + + + + + | % Basophils | 0.6 | 0 - 1 % | [facility] | | | | | | [facility] | | | | | | MEDICAL | | | | | | CENTER - | | | | | | LABORATORY | | + + + + + + | Absolute | 8.5 (H) | 1.5 - 6.6 K/uL | [facility] | | | Neutrophils | | | [facility] | | | | | | MEDICAL | | | | | | CENTER - | | | | | | LABORATORY | | + + + + + + | Absolute | 2.0 | 0.6 - 3.2 K/uL | [facility] | | | Lymphocytes | | | [facility] | | | | | | MEDICAL | | | | | | CENTER - | | | | | | LABORATORY | | + + + + + + | Absolute | 1.0 | 0.0 - 1.0 K/uL | [facility] | | | Monocytes | | | [facility] | | | | | | MEDICAL | | | | | | CENTER - | | | | | | LABORATORY | | + + + + + + | Absolute | 0.1 | 0.0 - 0.4 K/uL | [facility] | | | Eosinophils | | | [facility] | | | | | | MEDICAL | | | | | | CENTER - | | | | | | LABORATORY | | + + + + + + | Absolute | 0.1 | 0.0 - 0.1 K/uL | [facility] | | | Basophils | | | [facility] | | [...] [address] | [place] | [phone] | | [facility] | | [address] | | | - LABORATORY | | | | + + + + + | [facility] | [address] | [place] | | | [facility] | | [address], [facility] | | | - LABORATORY | | | | + + + + + Hepatitis Panel, Chronic (06/02/2013 5:32 PM PDT) + + + + + + | Component | Value | Ref Range | Performed | Pathologist | | | | | At | Signature | + + + + + + | HEP A TOTAL | Reactive (H) | NR | [facility] | | | AB | | | [facility] | | | | | | MEDICAL | | | | | | CENTER - | | | | | | LABORATORY | | + + + + + + | Hepatitis B | Non Reactive | NR | [facility] | | | Core Ab, | | | [facility] | | | Total | | | MEDICAL | | | | | | CENTER - | | | | | | LABORATORY | | + + + + + + | Hepatitis B | Non Reactive | NR | [facility] | | | Surface Ag | | | [facility] | | | | | | MEDICAL | | | | | | CENTER - | | | | | | LABORATORY | | + + + + + + | HEP B | 5.98Comment: <1.00 | () IV | [facility] | | | SURFACE | Non immune | | [facility] | | | ANTIBODY | 1.00 or more | | MEDICAL | | | | Indicates vaccine | | CENTER - | | | | response or response to | | LABORATORY | | | | HBV infection. An | | | | | | Index Value (IV) of 1.00 | | | | | | is equivalent to 10 | | | | | | mIU/mL. Samples with an | | | | | | IV of 1.00 or greater | | | | | | are considered | | | | | | reactive (protected) in | | | | | | accordance with the CDC | | | | | | Guidelines. | | | | + + + + + + | Hepatitis C | Non ReactiveComment: | NR | [facility] | | | Ab | Testing Performed: [facility], | | . [facility] | | | | [address], | | MEDICAL | | | | [place] [address] | | CENTER - | | | | CLIA: [id number] | | LABORATORY | | + + + + + + | Hepatitis | SEE BELOWComment: | () | [facility] | | | Interpretat | Current or past HAV | | [facility] | | | ion | infection. Past HBV | | MEDICAL | | | | infection or | | CENTER - | | | | vaccination. No | | LABORATORY | | | | serologic evidence of | | | | | | HCV infection. Testing | | | | | | Performed: [facility], [address] | | | | | [address], [place] | | | | | | [address] CLIA: | | | | | | [id number] | | | | + + + + + + + + | Specimen | + + | | + + + + + + + | Performing | Address | City/State/Zipcode | Phone Number | | Organization | | | | + + + + + | [facility] | [address] | [place] | [phone] | | [facility] | | [address] | | | - LABORATORY | | | | + + + + + | [facility] | [address] | [place], [place] | | | [facility] | | [address] | | | - LABORATORY | | | | + + + + + Celiac Panel, IgA and IgG (06/02/2013 5:32 PM PDT) + + + + + + | Component | Value | Ref Range | Performed | Pathologist | | | | | At | Signature | + + + + + + | Tissue | <1.2Comment: Negative | <4.0 U/mL | [facility] | | | Transglutam | < 4.0 Equivocal | | [facility] | | | inase IgA | 4.0 to 10.0 | | MEDICAL | | | | Positive >10.0 | | CENTER - | | | | | | LABORATORY | | + + + + + + | Tissue | 1.8Comment: Negative | 0.0 - 5.9 U/mL | [facility] | | | Transglutam | < 6.0 Equivocal | | [facility] | | | inase IgG | 6.0 to 9.0 | | MEDICAL | | | | Positive > 9.0 | | CENTER - | | | | tTG antibody, | | LABORATORY | | | | especially IgA, is | | | | | | sensitive and specific | | | | | | for untreated Celiac | | | | | | Disease. Levels can | | | | | | decrease significantly | | | | | | in response to a | | | | | | gluten free diet. The | | | | | | IgG assay is used | | | | | | mainly to detect | | | | | | celiac patients who are | | | | | | IgA deficient. Testing | | | | | | Performed: [address] | | | | | | [address], [place] | | | | | | [address] CLIA: [id number] | | | | | | | | | | + + + + + + + + | Specimen | + + | | + + + + + + + | Performing | Address | City/[facility]/Zipcode | Phone Number | | Organization | | | | + + + + + | [facility] | [address] | [place] | [phone] | | [facility] | | [address] | | | - LABORATORY | | | | + + + + + | [facility] | [address] | [place] | | | [facility] | | [address], [facility] | | | - LABORATORY | | | | + + + + + TSH (06/02/2013 5:32 PM PDT) + + + + + + | Component | Value | Ref Range | Performed | Pathologist | | | | | At | Signature | + + + + + + | TSH | 0.33 (L)Comment: Testing | 0.34 - 5.60 | [facility] | | | | performed on the | uIU/mL | [facility] | | | | [address] [place] | | MEDICAL | | | [...] + | [facility] | [address] | [place], [place] | [phone] | | [facility] | | [address] | | | - LABORATORY | | | | + + + + + | [facility] | [address] | [place], [place] | | | [facility] | | [address] | | | - LABORATORY | | | | + + + + + Comprehensive Metabolic Panel (06/02/2013 5:32 PM PDT) + + + + + + | Component | Value | Ref Range | Performed | Pathologist | | | | | At | Signature | + + + + + + | Glucose | 99 | 70 - 109 mg/dL | [facility] | | | | | | [facility] | | | | | | MEDICAL | | | | | | CENTER - | | | | | | LABORATORY | | + + + + + + | Calcium | 9.2 | 8.3 - 10.5 | [facility] | | | | | mg/dL | [facility] | | | | | | MEDICAL | | | | | | CENTER - | | | | | | LABORATORY | | + + + + + + | Alkaline | 63 | 40 - 110 IU/L | [facility] | | | Phosphatase | | | [facility] | | | | | | MEDICAL | | | | | | CENTER - | | | | | | LABORATORY | | + + + + + + | AST | 22 | 10 - 42 IU/L | [facility] | | | | | | [facility] | | | | | | MEDICAL | | | | | | CENTER - | | | | | | LABORATORY | | + + + + + + | ALT | 39 | 6 - 45 IU/L | [facility] | | | | | | [facility] | | | | | | MEDICAL | | | | | | CENTER - | | | | | | LABORATORY | | + + + + + + | Bilirubin | 0.6 | 0.2 - 1.0 mg/dL | [facility] | | | Total | | | [facility] | | | | | | MEDICAL | | | | | | CENTER - | | | | | | LABORATORY | | + + + + + + | Total | 7.1 | 6.0 - 7.8 gm/dL | [facility] | | | Protein | | | [facility] | | | | | | MEDICAL | | | | | | CENTER - | | | | | | LABORATORY | | + + + + + + | Albumin | 3.9 | 3.2 - 5.0 gm/dL | [facility] | | | | | | [facility] | | | | | | MEDICAL | | | | | | CENTER - | | | | | | LABORATORY | | + + + + + + | BUN | 12 | 7 - 18 mg/dL | [facility] | | | | | | [facility] | | | | | | MEDICAL | | | | | | CENTER - | | | | | | LABORATORY | | + + + + + + | Creatinine | 0.68 | 0.60 - 1.30 | [facility] | | | | | mg/dL | [facility] | | | | | | MEDICAL | | | | | | CENTER - | | | | | | LABORATORY | | + + + + + + | Estimated | >60Comment: For | >60 mL/min/A | [facility] | | | GFR | -Americans, | | . [facility] | | | | please multiply [...] + + + + | BUN/Creatin | 17.6 | 12 - 20 | [facility] | | | ine Ratio | | | [facility] | | | | | | MEDICAL | | | | | | CENTER - | | | | | | LABORATORY | | + + + + + + | Na | 138 | 136 - 149 mEq/L | [facility] | | | | | | [facility] | | | | | | MEDICAL | | | | | | CENTER - | | | | | | LABORATORY | | + + + + + + | K | 3.9 | 3.5 - 5.1 mEq/l | [facility] | | | | | | [facility] | | | | | | MEDICAL | | | | | | CENTER - | | | | | | LABORATORY | | + + + + + + | Cl | 100 | 98 - 109 mEq/l | [facility] | | | | | | [facility] | | | | | | MEDICAL | | | | | | CENTER - | | | | | | LABORATORY | | + + + + + + | CO2 | 30 | 24 - 31 mEq/L | [facility] | | | | | | [facility] | | | | | | MEDICAL | | | | | | CENTER - | | | | | | LABORATORY | | + + + + + + | Anion Gap | 11.9 | 6.0 - 17.0 | [facility] | [...] + | [facility] | [address] | [place], [place] | [phone] | | [facility] | | [address] | | | - LABORATORY | | | | + + + + + | [facility] | [address] | [place], [place] | | | [facility] | | [address], [facility] | | | - LABORATORY | | | | + + + + + Lipase (06/02/2013 5:32 PM PDT) + +-------+ + + + | Component | Value | Ref Range | Performed | Pathologist | | | | | At | Signature | + +-------+ + + + | Lipase | 27 | 0 - 60 U/L | [facility] | | | | [...] + | [facility] | [address] | [place] | [phone] | | [facility] | | [address] | | | - LABORATORY | | | | + + + + + | [facility] | [address] | [place], [place] | | | [facility] | | [address] | | | - LABORATORY | | | | + + + + + Lipase (06/02/2013 5:27 PM PDT) + +-------+ + + + | Component | Value | Ref Range | Performed | Pathologist | | | | | At | Signature | + +-------+ + + + | Lipase | 27 | 0 - 60 U/L | [facility] | | | | [...] + | [facility] | [address] | [place] | [phone] | | [facility] | | [address] | | | - LABORATORY | | | | + + + + + | [facility] | [address] | [place], [place] | | | [facility] | | [address], [facility] | | | - LABORATORY | | | | + + + + + Hepatitis Panel, Chronic (06/02/2013 5:27 PM PDT) + + + + + + | Component | Value | Ref Range | Performed | Pathologist | | | | | At | Signature | + + + + + + | HEP A TOTAL | Reactive (A) | NR | [facility] | | | AB | | | [facility] | | | | | | MEDICAL | | | | | | CENTER - | | | | | | LABORATORY | | + + + + + + | Hepatitis B | Non Reactive | NR | [facility] | | | Core Ab, | | | [facility] | | | Total | | | MEDICAL | | | | | | CENTER - | | | | | | LABORATORY | | + + + + + + | Hepatitis B | Non Reactive | NR | [facility] | | | Surface Ag | | | [facility] | | | | | | MEDICAL | | | | | | CENTER - | | | | | | LABORATORY | | + + + + + + | HEP B | 5.98Comment: <1.00 | () IV | [facility] | | | SURFACE | Non immune1.00 | | [facility] | | | ANTIBODY | or more Indicates | | MEDICAL | | | | vaccine response or | | CENTER - | | | | response toHBV | | LABORATORY | | | | infection. An Index | | | | | | Value (IV) of 1.00 is | | | | | | equivalentto 10 mIU/mL. | | | | | | Samples with an IV of | | | | | | 1.00 or greater | | | | | | areconsidered reactive | | | | | | (protected) in | | | | | | accordance with the | | | | | | CDCGuidelines. | | | | + + + + + + | Hepatitis C | Non ReactiveComment: | NR | [facility] | | | Ab | Testing Performed: [facility], | | [facility] | | | | [address], | | MEDICAL | | | | [place] [id number]: | | CENTER - | | | | [id number] | | LABORATORY | | + + + + + + | Hepatitis | SEE BELOWComment: | () | [facility] | | | Interpretat | Current or past HAV | | [facility] | | | ion | infection. Past HBV | | MEDICAL | | | | infection orvaccination. | | CENTER - | | | | No serologic evidence | | LABORATORY | | | | of HCV infection. | | | | | | TestingPerformed: [facility], | | | | | | [address], | | | | | | [place] [address] | | | | | | CLIA:[id number] | | | | + + + + + + + + | Specimen | + + | Blood specimen | | (specimen) | + + + + + + + | Performing | Address | City/State/Zipcode | Phone Number | | Organization | | | | + + + + + | [facility] | [address] | [place], [place] | [phone] | | [facility] | | [address] | | | - LABORATORY | | | | + + + + + | [facility] | [address] | [place], [place] | | | [facility] | | [address] | | | - LABORATORY | | | | + + + + + TSH (06/02/2013 5:27 PM PDT) + + + + + + | Component | Value | Ref Range | Performed | Pathologist | | | | | At | Signature | + + + + + + | TSH | 0.33 (L)Comment: Testing | 0.34 - 5.60 | [facility] | | | | performed on the | uIU/mL | [facility] | | | | [address] | | MEDICAL | | [...] + | [facility] | [address] | [place] | [phone] | | [facility] | | [address] | | | - LABORATORY | | | | + + + + + | [facility] | [address] | [place] | | | [facility] | | [address], [facility] | | | - LABORATORY | | | | + + + + + CBC with Differential (06/02/2013 5:27 PM PDT) + + + + + + | Component | Value | Ref Range | Performed | Pathologist | | | | | At | Signature | + + + + + + | White Blood | 11.7 (H) | 4.0 - 11.0 K/uL | [facility] | | | Cells | | | [facility] | | | | | | MEDICAL | | | | | | CENTER - | | | | | | LABORATORY | | + + + + + + | Red Blood | 4.72 | 3.70 - 5.20 | [facility] | | | Cells | | M/uL | [facility] | | | | | | MEDICAL | | | | | | CENTER - | | | | | | LABORATORY | | + + + + + + | Hemoglobin | 14.8 | 11.5 - 16.0 | [facility] | | | | | gm/dL | [facility] | | | | | | MEDICAL | | | | | | CENTER - | | | | | | LABORATORY | | + + + + + + | Hematocrit | 45.3 | 34.0 - 47.0 % | [facility] | | | | | | [facility] | | | | | | MEDICAL | | | | | | CENTER - | | | | | | LABORATORY | | + + + + + + | MCV | 96.0 | 83.0 - 101.0 fL | [facility] | | | | | | [facility] | | | | | | MEDICAL | | | | | | CENTER - | | | | | | LABORATORY | | + + + + + + | MCH | 31.3 | 28.0 - 35.0 pg | [facility] | | | | | | [facility] | | | | | | MEDICAL | | | | | | CENTER - | | | | | | LABORATORY | | + + + + + + | MCHC | 32.7 | 32.0 - 36.0 | [facility] | [...] + + + + | % | 73.0 | 45 - 75 % | [facility] | | | Neutrophils | | | [facility] | | | | | | MEDICAL | | | | | | CENTER - | | | | | | LABORATORY | | + + + + + + | % | 16.9 (L) | 20 - 45 % | [facility] | | | Lymphocytes | | | [facility] | | | | | | MEDICAL | | | | | | CENTER - | | | | | | LABORATORY | | + + + + + + | % Monocytes | 8.8 | 4 - 12 % | [facility] | | | | | | [facility] | | | | | | MEDICAL | | | | | | CENTER - | | | | | | LABORATORY | | + + + + + + | % | 0.7 | 0 - 5 % | [facility] | | | Eosinophils | | | [facility] | | | | | | [facility] | | | | | | [facility] - | | | | | | LABORATORY | | + + + + + + | % Basophils | 0.6 | 0 - 1 % | [facility] | | | | | | [facility] | | | | | | [facility] | | | | | | [facility] - | | | | | | LABORATORY | | + + + + + + | Absolute | 8.5 (H) | 1.5 - 6.6 K/uL | [facility] | | | Neutrophils | | | [facility] | | | | | | [facility] | | | | | | [facility] - | | | | | | LABORATORY | | + + + + + + | Absolute | 2.0 | 0.6 - 3.2 K/uL | [facility] | | | Lymphocytes | | | [facility] | | | | | | [facility] | | | | | | [facility] - | | | | | | LABORATORY | | + + + + + + | Absolute | 1.0 | 0.0 - 1.0 K/uL | [facility] | | | Monocytes | | | [facility] | | | | | | [facility] | | | | | | [facility]ENTER - | | | | | | LABORATORY | | + + + + + + | Absolute | 0.1 | 0.0 - 0.4 K/uL | [facility] | | | Eosinophils | | | [facility] | | | | | | [facility] | | | | | | CENTER - | | | | | | LABORATORY | | + + + + + + | Absolute | 0.1 | 0.0 - 0.1 K/uL | [facility] | | | Basophils | | | [facility] | | [...] + | [facility] | [address] | [place] | [phone] | | [facility] | | [id number] | | | - LABORATORY | | | | + + + + + | [facility] | [address] | [place], [place] | | | [facility] | | [id number] | | | - LABORATORY | | | | + + + + + Comprehensive Metabolic Panel (06/02/2013 5:27 PM PDT) + + + + + + | Component | Value | Ref Range | Performed | Pathologist | | | | | At | Signature | + + + + + + | Glucose | 99 | 70 - 109 mg/dL | [facility] | | | | | | [facility] | | | | | | [facility] | | | | | | CENTER - | | | | | | LABORATORY | | + + + + + + | Calcium | 9.2 | 8.3 - 10.5 | [facility] | | | | | mg/dL | [facility] | | | | | | [facility] | | | | | | [facility] - | | | | | | LABORATORY | | + + + + + + | Alkaline | 63 | 40 - 110 IU/L | [facility] | | | Phosphatase | | | [facility] | | | | | | [facility] | | | | | | CENTER - | | | | | | LABORATORY | | + + + + + + | AST | 22 | 10 - 42 IU/L | [facility] | | | | | | [facility] | | | | | | [facility] | | | | | | CENTER - | | | | | | LABORATORY | | + + + + + + | ALT | 39 | 6 - 45 IU/L | [facility] | | | | | | [facility] | | | | | | [facility] | | | | | | [facility] - | | | | | | LABORATORY | | + + + + + + | Bilirubin | 0.6 | 0.2 - 1.0 mg/dL | [facility] | | | Total | | | [facility] | | | | | | [facility] | | | | | | CENTER - | | | | | | LABORATORY | | + + + + + + | Total | 7.1 | 6.0 - 7.8 gm/dL | [facility] | | | Protein | | | [facility] | | | | | | [facility] | | | | | | CENTER - | | | | | | LABORATORY | | + + + + + + | Albumin | 3.9 | 3.2 - 5.0 gm/dL | [facility] | [facility] | | | [facility] - | | | | | | LABORATORY | | + + + + + + | BUN | 12 | 7 - 18 mg/dL | [facility] | | | | | | [facility] - | | | | | | LABORATORY | | + + + + + + | Creatinine | 0.68 | 0.60 - 1.30 | [facility] | | | | | mg/dL | [...] + + + + | BUN/Creatin | 17.6 | 12 - 20 | [facility] | | | [facility]e [facility] | | [facility] | [facility] | [facility] | | | | | | [facility] - | | | | | | LABORATORY | | + + + + + + | Na | 138 | 136 - 149 mEq/L | [facility] | | | | [facility] | [facility] | | | [facility] | [facility] - | | | | | | LABORATORY | | + + + + + + | K | 3.9 | 3.5 - 5.1 mEq/l | [facility] | | | [facility] | | [facility] - | | | | | | LABORATORY | | + + + + + + | Cl | 100 | 98 - 109 mEq/l | [facility] | | | [facility] - | | | | | | LABORATORY | | + + + + + + | CO2 | 30 | 24 - 31 mEq/L | [facility] | [facility] | | | | | | [facility] - | | | | | | LABORATORY | | + + + + + + | Anion Gap | 11.9 | 6.0 - 17.0 | [facility] | [...] + | [facility] | [address] | [place] | [phone] | | [facility] | | [address] | | | - LABORATORY | | | | + + + + + | [facility] | [address] | [place], [place] | | | [facility] | | [id number] [place] [address] | | | - LABORATORY | | | | + + + + + documented in this encounter Visit Diagnoses + + | Diagnosis | + + | Abdominal pain Abdominal pain, unspecified site | + + | Elevated liver enzymes Nonspecific elevation of levels of transaminase or lactic acid | | dehydrogenase (LDH) | + + | Hypothyroidism Unspecified hypothyroidism | + + | Cervical strain Sprain of neck | + + documented in this encounter
--- OUTSIDE RECORDS SUMMARY | ~2020-05-24 | XMS | Encounter Summary ---
Demographics + + + | Address | [facility] | | | [place] [address] | + + + | Home Phone [...] Organization | [facility] | | | [...] [place], [place] | | | | | [address] | | + + + + + | Amy Schneider | ECON | [address] | | | | | [place], [place] | | | | | [address] | | + + + + + | Alisha Schneider | ECON | Unknown | | + + + + + Care Team Providers + +------+ + | Care Supervisor Finishing Room Name | Role | Phone | + +------+ + | Jet Chaney MD | PCP | | + +------+ + Reason for Visit + +--------+ + | Reason | Onset | Comments | | | Date | | + +--------+ + | Appointment Question | 12/10/ | | | | 2020 | | + +--------+ + Encounter Details +--------+ + + + + | Date | Type | Department | Care Team | Description | +--------+ + + + + | 12/10/ | Telephone | [facility] | Jet Chaney, | Appointment Question | | 2020 | | [facility] | [address] | | | | | [address] | [place] | | | | | [place] | [address] | | | | | [address] | | | | | | [phone] | | | +--------+ + + + [...] this encounter Miscellaneous Notes Telephone Encounter - Sabrina Chinchilla - 12/16/2019 10:45 AM PDTAppointment changed to tel ehealth elephone Encount er - Yolette Hunt - 12/14/2019 10:29 AM PDTLeft message and sent MyChart message to reschedul e this appointment. elephone E gay - Jet Chaney MD - 12/11/2019 5:25 PM PDTWill you please change Sochil's vis it to a Zoom visit on a day other than Saturday. Thanks! Prashanth Chaney MD documented in this e ncounter Plan of Treatment Not on filedocumented as of this encounter Visit Diagnoses Not on filedocumented in this encounter"
--- OUTSIDE RECORDS SUMMARY | ~2020-05-24 | XMS | Encounter Summary ---
Demographics + + + | Address | [facility] | | | [place] [address] | + + + | Home Phone [...] | Located Within [facility] | | [...] [place], [place] | | | | | [address] | | + + + + + | Amy Schneider | ECON | [address] | | | | | [place], [place] | | | | | [address] | | + + + + + | Alisha Schneider | ECON | Unknown | | + + + + + Care Team Providers + +------+ + | Care Sound Person Name | Role | Phone | + [...] Ct [address] | | | | | Incidental | Jet Dempsey MD | [address] [place] | | | | | lung nodule, | [address] | [place], | | | | | > 3mm and < | [address] | [place] [address] | | | | | 8mm | [place] | Phone: | | | | | Procedures | [address] | [phone] | | | | | CT Chest wo | Phone: | Fax: | | | | | Contrast | [phone] | [phone] | | | | | | Fax: | | | | | | | [phone] | | +--------+--------+ + + + + Reason for Visit Diagnostic/Screening (Routine) +--------+--------+ + + + + | Status | Reason | Specialty | Diagnoses / | Referred By | Referred To | | | | | Procedures | Contact | Contact | +--------+--------+ + + + + | Closed | | Radiology | Diagnoses | [place], | [address] | | | | | Incidental | Jet Dempsey MD | [address] [place] | | | | | lung nodule, | [address] | [place], | | | | | > 3mm and < | [address] [place] | [place] [address] | | | | | 8mm | [place], [place] | Phone: | | | | | Procedures | [address] | [phone] | | | | | CT Chest wo | Phone: | Fax: | | | | | Contrast | [phone] | [phone] | | | | | | Fax: | | | | | | | [phone] | | +--------+--------+ + + + + Encounter Details +--------+ + + + + | Date | Type | Department | Care Team | Description | +--------+ + + + + | 06/30/ | Hospital | [facility] | Jet Chaney, | Incidental lung | | 2015 | Encounter | MED [facility] [address] | [address] | nodule, > 3mm and < | | | | [place], | [place], [place] | 8mm | | | | [place] [address] | [address] | | | | | [phone] | | | +--------+ + + + [...] capsule by | 90 | 1 | 08/06/20 | | | (PRILOSEC) 40 MG | mouth Daily. To help | capsule | | 14 | 6 | | capsuleIndications: | abdominal pain | [...] + +--------+ + + + | CT CHEST WO CONTRAST | Routin | 06/30/2015 | Incidental lung | Results for this | | | e | 1:25 PM | nodule, > 3mm and < | procedure are in the | | | | PDT | 8mm | results section. | + +--------+ + + + documented in this encounter Results CT Chest wo Contrast (06/30/2015 1:25 PM PDT) + + | Specimen | + + | | + + + + + | Narrative | Performed At | + + + | UNENHANCED CHEST CT 06/30/2015 1:17 PM CLINICAL HISTORY: | [facility] | | Follow-up right lung nodule seen on previous CT in smoker. | | | COMPARISON: CT abdomen January 2014 TECHNIQUE: Axial unenhanced images | | | are performed through the chest, along with multiplanar | | | reformations. FINDINGS: The heart, mediastinum and thoracic | | | vasculature have an unremarkable unenhanced appearance. No | | | pathologic lymph node enlargement is visible on the basis of size | | | criteria. There is no pneumothorax or pleural effusion. The | | | previously described 3 mm nodule in the anterolateral aspect of the | | | right middle lobe is stable on image 58. No new nodule or | | | consolidation is evident. Minimal dependent density in the lungs and | | | bandlike opacity in the lingula favor atelectasis. No airway | | | abnormality is visible. There is rightward thoracic curvature and | | | multilevel Schmorl's node formation. The gallbladder is surgically | | | absent. Bones, soft tissues and imaged upper abdomen are otherwise | | | unremarkable. IMPRESSION - 1. STABLE 3 MM RIGHT MIDDLE LOBE | | | LUNG NODULE COMPARED WITH CT OF JANUARY 2014. PER FLEISCHNER CRITERIA, | | | NO FURTHER FOLLOW-UP IS INDICATED. 2. RIGHTWARD THORACIC | | | CURVATURE. Dictated and Signed by: Jose Ramon Ibrahim MD | | | Electronically signed: 06/30/2015 4:45 PM | | + + + + + | Procedure Note | + + | Kranthi, Rad Results In - 06/30/2015 4:48 PM PDT UNENHANCED CHEST CT 06/30/2015 1:17 PM | | | | CLINICAL HISTORY: Follow-up right lung nodule seen on previous CT in smoker. | | | | COMPARISON: CT abdomen January 2014 | | | | TECHNIQUE: Axial unenhanced images are performed through the chest, along with | | multiplanar reformations. | | | | FINDINGS: The heart, mediastinum and thoracic vasculature have an unremarkable | | unenhanced appearance. No pathologic lymph node enlargement is visible on the | | basis of size criteria. There is no pneumothorax or pleural effusion. | | | | The previously described 3 mm nodule in the anterolateral aspect of the right | | middle lobe is stable on image 58. No new nodule or consolidation is evident. | | Minimal dependent density in the lungs and bandlike opacity in the lingula favor | | atelectasis. No airway abnormality is visible. | | | | There is rightward thoracic curvature and multilevel Schmorl's node formation. | | The gallbladder is surgically absent. Bones, soft tissues and imaged upper | | abdomen are otherwise unremarkable. | | | | IMPRESSION - | | 1. STABLE 3 MM RIGHT MIDDLE LOBE LUNG NODULE COMPARED WITH CT OF JANUARY 2014. PER | | FLEISCHNER CRITERIA, NO FURTHER FOLLOW-UP IS INDICATED. | | | | 2. RIGHTWARD THORACIC CURVATURE. | | | | Dictated and Signed by: Jose Ramon Ibrahim MD | | Electronically signed: 06/30/2015 4:45 PM | + + + +---------+ + [...] 8mm Solitary pulmonary nodule | + + documented in this encounter"
--- OUTSIDE RECORDS SUMMARY | ~2020-05-24 | XMS | Encounter Summary ---
Demographics + + + | Address | [address] | | | [place] [address] | + + + | Home Phone | | + + + | Preferred Language | Unknown | + + + | Marital Status | Single | + + + | Yarsanism Affiliation | [id number] | + + + | Race | Unknown | + + + | Ethnic Group | or | + + + Author + + + | Author | [facility] | | | and [place] | + + + | Organization | [facility] | [...] [place], [place] | | | | | [address] | | + + + + + | Amy Schneider | ECON | [address] | | | | | [place], [place] | | | | | [address] | | + + + + + | Alisha Schneider | ECON | Unknown | | + + + + + Care Team Providers + +------+ + | Care Modeling Teacher Name | Role | Phone | [...] | Upper | Jet Dempsey MD | Hill Holder MD | | | Required | | abdominal | [address] | [address], | | | | | pain | [address] [place] | [address] | | | | | [place] | [place], [place] | [place], | | | | | esophagus | [address] | [place] [address] | | | | | without | Phone: | Phone: | | | | | dysplasia | [phone] | [phone] | | | | | Chronic | Fax: | Fax: | | | | | gastritis | [phone] | [phone] | | | | | without | | | | | | | bleeding, | | | | | | | unspecified | | | | | | | gastritis | | | | | | | type | | | +--------+ + + + + + Encounter Details +--------+---------+ + + + | Date | Type | Department | Care Team | Description | +--------+---------+ + + + | 07/01/ | Office | [facility] | Jet Chaney, | Chronic abdominal | | 2018 | Visit | GASTROENTEROLOGY | MD [address] | pain (Primary Dx); | | | | [address] | [place] | Slow transit | | | | [address] [place], [place] | [address] | constipation | | | | [address] | | | | | | [phone] | [place] MD | | | | | | [address], [place] | | | | | | [address] [place] | | | | | | [address] | | | | | | | [...] + + + | Blood Pressure | 110/80 | 07/01/2018 3:49 PM | | | | | PDT | | + + + + + | Pulse | 79 | 07/01/2018 3:49 PM | | | | | PDT | | + + + + + | Temperature | - | - | | + + + + + | Respiratory Rate | 16 | 07/01/2018 3:49 PM | | | | | PDT | | + + + + + | Oxygen Saturation | - | - | | + + + + + | Inhaled Oxygen | - | - | | | Concentration | | | | + + + + + | Weight | 87.5 kg (192 lb 14.4 | 07/01/2018 3:49 PM | | | | oz) | PDT | | + + + + + | Height | 157.5 cm (5' 2") | 07/01/2018 3:49 PM | | | | | PDT | | + + + + + | Body Mass Index | 35.28 | 07/01/2018 3:49 PM | | | | | PDT | | + + + + + documented in this encounter H&P Notes [place] MD - 07/01/2018 3:30 PM PDT Sochil Schneider is an 37 y.o. female. The patient is seen for evaluation of abdominal pain weight loss records are reviewed Patient states that she's lost about 20 pounds over the past 4-5 months. She is unsure as to whether increasing her thyroid dose is playing a role in her weight loss. She has sympto ms of early progressive satiety and complains of abdominal pain which she describes as a blo ated sensation after eating. It also occurs after consuming liquids. She cannot identify a ny particular foods that bring the symptoms on. She states that in the morning her abdomen is flat but as the day progresses particularly after meals she gets abdominal distention. S he does not hear increase borborygmi. Patient denies nausea and vomiting. Patient denies d ysphagia or odontophagia supra esophageal manifestations of reflux She will have some right and left upper quadrant pain under the cage when her abdomen gets distended. She describes the pain as a bruising sensation. The patient has a tendency toward constipation and may no t move her bowels for 2 days. She takes MiraLAX 17 g a day which has been of no help with h er bowel pattern. In addition she takes herbal teas. Her abdominal symptoms i.e. bloating seem to be worse if she does not move her bowels. Patient denies dysphagia or odontophagia or symptoms of reflux. The patient is not diabetic. Workup has included a CT scan in February of this year which was essentially normal except for possible hepatomegaly. Upper endoscopy 2015 which was within normal limits including duo denal biopsies H. pylori biopsy and distal esophagus biopsy showed reflux with one small foc i of Hodges's metaplasia. Past Medical History: Diagnosis Date Allergy Cervical [...] disorder Tobacco abuse 02/23/2014 Vitamin D deficiency Allergies: Allergies Allergen Reactions Hydrocodone Hives Breathing difficulty. Active Problems: * No active hospital problems. * Blood pressure 110/80, pulse 79, resp. rate 16, height 1.575 m (5' 2"), weight 87.5 kg (192 lb 14.4 oz), not currently . Review of Systems Constitutional: Positive for weight loss. HENT: Positive for congestion. Gastrointestinal: Positive for abdominal pain, constipation and heartburn. All other systems reviewed and are negative. Physical Exam Constitutional: She is oriented to person, place, and time. She appears well-developed and well-nourished. No distress. HENT: Head: Normocephalic and atraumatic. Right Ear: External ear normal. Left Ear: External ear normal. Nose: Nose normal. Mouth/Throat: Oropharynx is clear and moist. No oropharyngeal exudate. Eyes: Pupils are equal, round, and reactive to light. Conjunctivae and EOM are normal. Righ t eye exhibits no discharge. Left eye exhibits no discharge. No scleral icterus. Neck: Normal range of motion. Neck supple. No JVD present. No tracheal deviation present. Cardiovascular: Normal rate, regular rhythm, normal heart sounds and intact distal pulses. Exam reveals no friction rub. No murmur heard. Pulmonary/Chest: Effort normal and breath sounds normal. No stridor. No respiratory distres s. She has no wheezes. She has no rales. She exhibits no tenderness. Abdominal: Soft. She exhibits no distension and no mass. There is no tenderness. There is n o rebound and no guarding. Abdomen soft tympany to percussion throughout the upper abdomen no pain to palpation or jesus ound no pain to palpation along the costal margin and xiphoid process Musculoskeletal: Normal range of motion. She exhibits no edema, tenderness or deformity. Lymphadenopathy: She has no cervical adenopathy. Neurological: [...] normal. Nursing note and vitals reviewed. Assessment: Abdominal distention after meals questionable gastroparesis given findings on today's physi dora exam possible IBS History of gastroesophageal reflux confirmed on endoscopy with biopsy Hepatomegaly by CT scan without evidence of steatosis Possible generalized decreasing gastrointestinal motility with obstipation playing a role i n her increase his abdominal symptoms Plan: Upper endoscopy to assess gastric motility reassess H. pylori status reflux status benefits and risks of procedure is explained to the patient she concurs and she'll be scheduled as a n outpatient with IV conscious sedation. Once the above is completed optimization the patient's bowel pattern may be in order and an attempt to minimize her abdominal symptoms and bloating [place] 07/01/2018 documented i n this encounter Miscellaneous Notes Addendum Note - Fifi Mccoy RN - 07/01/2018 3:30 PM PDT Addended by: SD MCCOY on: 07/01/2018 16:53 Modules accepted: Orders documented in this encounter Plan of Treatment Not on filedocumented as of this encounter Visit Diagnoses + + | Diagnosis | + + | Chronic abdominal pain - Primary Abdominal pain, unspecified site | + + | Slow transit constipation | + + documented in this encounter
--- OUTSIDE RECORDS SUMMARY | ~2020-05-24 | XMS | Encounter Summary ---
Demographics + + + | Address | [facility] | | | [place] [address] | + + + | Home Phone [...] [facility] [...] [place], [place] | | | | | [address] | | + + + + + | Amy Schneider | ECON | [address] | | | | | [place], [place] | | | | | [address] | | + + + + + | Alisha Schneider | ECON | Unknown | | + + + + + Care Team Providers + +------+ + | Care Concession Stand Attendant Name | Role | Phone | + +------+ + | Jet Chaney MD | PCP | | + +------+ + Reason for Visit + +--------+ + | Reason | Onset | Comments | | | Date | | + +--------+ + | Medication Refill | 11/16/ | | | | 2013 | | + +--------+ + Encounter Details +--------+--------+ + + + | Date | Type | Department | Care Team | Description | +--------+--------+ + + + | 11/16/ | Refill | [facility] | Jet Chaney, | Medication Refill | | 2013 | | [facility] | [address] | | | | | [address] | [place] | | | | | [place] | [address] | | | | | [address] | | | | | | [phone] | | | +--------+--------+ + + + [...] Telephone Encounter - Michelle Petersen RN - 11/16/2013 4:17 PM PSTCalling patient, Gave her message She stated understanding elephone Encounter - Jet Chaeny MD - 11/16/2013 12:31 PM PSTNexium was denied by insurance. Will trial lansoprazole per insurance request, which I am fine with. If ineffec tive, we can then go back to nexium. Will you please let Sochil know of this change. Thanks, Prasahnth Chaney MD documented in this e ncounter Plan of Treatment Not on filedocumented as of this encounter Visit Diagnoses + + | Diagnosis | + + | G E R D - Primary Esophageal reflux | + + | Gastritis Unspecified gastritis and gastroduodenitis without mention of hemorrhage | + + documented in this encounter"
--- OUTSIDE RECORDS SUMMARY | ~2020-05-24 | XMS | Encounter Summary ---
Demographics + + + | Address | [facility] | | | [place] [address] | + + + | Home Phone [...] + | Organization | [facility] | | | [...] [place], [place] | | | | | [address] | | + + + + + | Amy Schneider | ECON | [address] | | | | | [place], [place] | | | | | [address] | | + + + + + | Alisha Schneider | ECON | Unknown | | + + + + + Care Team Providers + +------+ + | Care Dermatologist Managing Partner Name | Role | Phone | + +------+ + | Jet Chaney MD | PCP | | + +------+ + Reason for Visit + +--------+ + | Reason | Onset | Comments | | | Date | | + +--------+ + | Lab Results | 09/07/ | | | | 2019 | | + +--------+ + Encounter Details +--------+ + + + + | Date | Type | Department | Care Team | Description | +--------+ + + + + | 09/07/ | Telephone | [facility] | Jet Chaney, | Lab Results | | 2018 | | [facility] | [address] | | | | | [address] | [place] | | | | | [place] | [address] | | | | | [address] | | | | | | [phone] | | | +--------+ + + + [...] this encounter Miscellaneous Notes Telephone Encounter - Catarina Hdez RN - 10/14/2019 9:33 AM [facility], Our office has been trying to reach you to schedule follow-up with me to review your lab re sults. Your kidneys are just a touch leaky - they are not filtering perfectly. The lisin opril will help protect your kidneys. Please follow-up with us in clinic to review in more detail. Prashanth Chaney MD Patient returns call and was given both of Dr Chaney's message. She verbalizes under standing after much discussion. She agrees to start the lisinopril and keep her appointment on 11/02. elephone [place] unter - Pam Wei Cert MA - 09/07/2019 4:48 PM PSTMail box full. Unable to leave nichol ge. Called lab they said they should be able to add on micro/albumin creatinine. Said they w ould call if they can not. 4:5 2 PM PSTTelephone Encounter - Pam Wei Cert MA - 09/07/2019 4:47 PM PST----- Message from Jet Chaney MD sent at 09/07/2019 4:26 PM PST ----- Will you please let Sochil know that her blood sugars have gone up slightly and are now in a diabetic range. Fortunately they are in a well-controlled range for diabetes. One liver enzyme is mildly high - consistent with her diabetes. Her kidney function is normal. I want her to follow-up with me in the next month to review strategies to lower the blood s ugars and liver enzymes. Also - will you please ask the lab to add on a microalbumin:creatinine test (if we still guillen ve the urine sample). Thanks! Prashanth Chaney MD documented in this encounter Plan of Treatment Not on filedocumented as of this encounter Visit Diagnoses Not on filedocumented in this encounter"
--- OUTSIDE RECORDS SUMMARY | ~2020-05-24 | XMS | Encounter Summary ---
Demographics + + + | Address | [facility] | | | [place] [address] | + + + | Home Phone [...] | Organization | [facility] [...] [place], [place] | | | | | [address] | | + + + + + | Amy Schneider | ECON | [address] | | | | | [place], [place] | | | | | [address] | | + + + + + | Alisha Schneider | ECON | Unknown | | + + + + + Care Team Providers + +------+ + | Care Specialty Food Products Supervisor Name | Role | Phone | + +------+ + | Jet Chaney MD | PCP | | + +------+ + Reason for Visit + + + | Reason | Comments | + + + | Abdominal Pain | follow up x 2 weeks | + + + | Results | lab results | + + + Encounter Details +--------+---------+ + + + | Date | Type | Department | Care Team | Description | +--------+---------+ + + + | 06/16/ | Office | [facility] | RituJet, | Cervical strain | | 2013 | Visit | [facility] | [address] | (Primary Dx); | | | | [address] | [place], [place] | Abdominal pain | | | | [place], [place] | [address] | | | | | [address] | | | | | | [phone] | | | +--------+---------+ + + + [...] + + + | Blood Pressure | 112/72 | 06/16/2013 4:27 PM | | | | | PDT | | + + + + + | Pulse | 80 | 06/16/2013 4:27 PM | | | | | PDT | | + + + + + | Temperature | 36.6 C (97.9 F) | 06/16/2013 4:27 PM | | | | | PDT | | + + + + + | Respiratory Rate | 20 | 06/16/2013 4:27 PM | | | | | PDT | | + + + + + | Oxygen Saturation | - | - | | + + + + + | Inhaled Oxygen | - | - | | | Concentration | | | | + + + + + | Weight | 98.2 kg (216 lb 9.6 | 06/16/2013 4:27 PM | | | | oz) | PDT | | + + + + + | Height | - | - | | + + + + + | Body Mass Index | 38.37 | 06/02/2013 4:01 PM | | | | | PDT | | + + + + + documented in this encounter Patient Instructions Patient Instructions Jet Chaney MD - 06/16/2013 4:58 PM PDTBP 112/72 | Pulse 80 | T emp 36.6 C (97.9 F) (Temporal) | Resp 20 | Wt 98.249 kg (216 lb 9.6 oz) | LMP 06/12/2013 | ? No Please increase your omeprazole to 40 mg (2 capsules) daily. If your abdominal pain has no t improved after 4 weeks, please follow-up with me. Try the flexeril to help the neck pain. Do not drive or operate machinery while taking thi s medication. If it has not improved after 4-6 weeks of chiropracty or physical therapy, pl ease follow-up with me. See me sooner if your symptoms worsen.Electronically signed by Jet Chaney MD at 06/21 8:41 PM PDT documented in this encounter Progress Notes Jet Chaney MD - 06/16/2013 4:40 PM PDTFormatting of this note might be different fr om the original. Subjective: Patient ID: Baudilio Schneider is a 32 y.o. female here for abdominal pain. HPI Her left sided neck pain has improved but not resolved. Described as stiff. Still occasio hunter with left sided facial numbness. No fever, weight change, radiation down arm, numbnes s/tingling of arms, saddle paresthesias, bowel/bladder dysfunction. She is taking omeprazole as prescribed. Abdominal pain has improved slightly but still pre sent. Eating continues to make the pain slightly worse. No fever, N/V, diarrhea. Patient's medications, allergies, past medical, surgical, social and family histories were reviewed and updated as appropriate. Review of Systems See HPI BP 112/72 | Pulse 80 | Temp 36.6 C (97.9 F) (Temporal) | Resp 20 | Wt 98.249 kg (216 lb 9.6 oz) | LMP 06/12/2013 | ? No Objective: Physical Exam Constitutional: Very pleasant, well developed, NAD Neck: Normal range of motion. Neck supple. Cardiovascular: Normal rate, regular rhythm, normal heart sounds and intact distal pulses. Exam reveals no gallop and no friction rub. No murmur heard. Pulmonary/Chest: Breath sounds normal. No respiratory distress. She has no wheezes. She has no rales. Abdominal: Soft. She exhibits no distension and no mass. There is no tenderness. There is n o rebound and no guarding. Musculoskeletal: Symmetric 5/5 strength in UE's Lymphadenopathy: She has no cervical adenopathy. Hospital Outpatient Visit on 06/02/2013 Component Date Value Range Status GLUCOSE 06/02/2013 99 70 - 109 mg/dL Final CALCIUM 06/02/2013 9.2 8.3 - 10.5 mg/dL Final ALK PHOS 06/02/2013 63 40 - 110 IU/L Final AST 06/02/2013 22 10 - 42 IU/L Final ALT 06/02/2013 39 6 - 45 IU/L Final BILIRUBIN TOTAL 06/02/2013 0.6 0.2 - 1.0 mg/dL Final Total protein 06/02/2013 7.1 6.0 - 7.8 gm/dL Final ALBUMIN 06/02/2013 3.9 3.2 - 5.0 gm/dL Final BUN 06/02/2013 12 7 - 18 mg/dL Final CREA 06/02/2013 0.68 0.60 - 1.30 mg/dL Final Estimated GFR 06/02/2013 >60 >60 mL/min/A Final Comment: For -Americans, please multiply the result by 1.210 This is an estimated GFR and is based on a standard adult body mass (A=1.73m2) and serum creatinine BUN/Creatinine Ratio 06/02/2013 17.6 12 - 20 Final NA 06/02/2013 138 136 - 149 mEq/L Final K 06/02/2013 3.9 3.5 - 5.1 mEq/l Final CL 06/02/2013 100 98 - 109 mEq/l Final CO2 06/02/2013 30 24 - 31 mEq/L Final ANION GAP 06/02/2013 11.9 6.0 - 17.0 Final WBC 06/02/2013 11.7* 4.0 - 11.0 K/uL Final RBC 06/02/2013 4.72 3.70 - 5.20 M/uL Final HGB 06/02/2013 14.8 11.5 - 16.0 gm/dL Final HCT 06/02/2013 45.3 34.0 - 47.0 % Final MCV 06/02/2013 96.0 83.0 - 101.0 fL Final MCH 06/02/2013 31.3 28.0 - 35.0 pg Final MCHC 06/02/2013 32.7 32.0 - 36.0 g/dL Final RDW 06/02/2013 13.2 <15.0 % Final PLT 06/02/2013 247 140 - 440 K/uL Final % Neutrophils 06/02/2013 73.0 45 - 75 % Final % Lymphocytes 06/02/2013 16.9* 20 - 45 % Final % Monocytes 06/02/2013 8.8 4 - 12 % Final % Eosinophils 06/02/2013 0.7 0 - 5 % Final % Basophils 06/02/2013 0.6 0 - 1 % Final Absolute Neutrophils 06/02/2013 8.5* 1.5 - 6.6 K/uL Final Absolute Lymphocytes 06/02/2013 2.0 0.6 - 3.2 K/uL Final Absolute Monocytes 06/02/2013 1.0 0.0 - 1.0 K/uL Final Absolute Eosinophils 06/02/2013 0.1 0.0 - 0.4 K/uL Final Absolute Basophils 06/02/2013 0.1 0.0 - 0.1 K/uL Final TSH 06/02/2013 0.33* 0.34 - 5.60 uIU/mL Final Testing performed on the Event[employer] Access Analyzer. HEP A TOTAL AB 06/02/2013 Reactive* NR Final HEP B C TOTAL AB 06/02/2013 Non Reactive NR Final HEP B S AG 06/02/2013 Non Reactive NR Final HEP B SURFACE ANTIBODY 06/02/2013 5.98 () IV Corrected Comment: <1.00 Non immune 1.00 or more Indicates vaccine response or response to HBV infection. An Index Value (IV) of 1.00 is equivalent to 10 mIU/mL. Samples with an IV of 1.00 or greater are considered reactive (protected) in accordance with the CDC Guidelines. HEPATITIS C ANTIBODY 06/02/2013 Non Reactive NR Corrected Comment: Testing Performed: [address], [place] [address] CLIA: [id number] Hepatitis Interpretation 06/02/2013 SEE BELOW () Final Comment: Current or past HAV infection. Past HBV infection or vaccination. No serologic evidence of HCV infection. Testing Performed: [address] [place] [address] CLIA: [id number] LIPASE 06/02/2013 27 0 - 60 U/L Final XR C-Spine: "VERY MILD REVERSAL OF THE CERVICAL LORDOSIS, CAN BE SEEN WITH MUSCLE SPASM . NO EVIDENCE OF FRACTURE OR SUBLUXATION." Assessment: Baudilio was seen today for abdominal pain and results. Diagnoses and associated orders for this visit: Cervical strain: Slightly improved. Unremarkable XR. No red flag symptoms, signs. - She is going to try either PT or chiropracty. She will let me know which - cyclobenzaprine (FLEXERIL) 5 MG tablet; Take 1-2 tablets by mouth Twice daily as needed for Muscle spasms. Side effects reviewed - If not improved in 4-6 weeks will obtain MRI Abdominal pain: Benign exam. Suspect gastritis and has improved slightly with prilosec. Reassuring RUQ US previously. LFT's, lipase wnl. Possibly gastritis. - Increase omeprazole (PRILOSEC) 20 mg capsule; Take 2 capsules by mouth Daily. - FU if not improved in 4 weeks. Sooner if worsens. Prashanth Chaney MD herri Hsu - 4:24 PM PDTPatient is here to follow up on abdominal pain and lab results. She dec lined the flu vaccine. docu mented in this encounter Plan of Treatment Not on filedocumented as of this encounter Visit Diagnoses + + | Diagnosis | + + | Cervical strain - Primary Sprain of neck | + + | Abdominal pain Abdominal pain, unspecified site | + + documented in this encounter
--- OUTSIDE RECORDS SUMMARY | ~2020-05-24 | XMS | Encounter Summary ---
Demographics + + + | Address | [facility] | | | [place] [address] | + + + | Home Phone | | + + + | Preferred Language | Unknown | + + + | Marital Status | Single | + + + | Jainism Affiliation | [id number] | + + + | Race | Unknown | + + + | Ethnic Group | or | + + + Author + + + | Author | [facility] | | | and [place] | + + + | Organization | [facility] | [...] [place], [place] | | | | | [address] | | + + + + + | Amy Schneider | ECON | [address] | | | | | [place], [place] | | | | | [address] | | + + + + + | Alisha Schneider | ECON | Unknown | | + + + + + Care Team Providers + +------+ + | Care Legal File Clerk Name | Role | Phone | [...] + + | 09/25/ | Hospital | [facility] | [place] MD | | | 2019 | Encounter | [facility] | [address], [place] | | | | | MEDICINE [address] [place], [place] | | | | | [place], | [address] | | | | | [place] [address] | | | | | | [phone] | | | +--------+ + + + [...]
--- OUTSIDE RECORDS SUMMARY | ~2020-05-24 | XMS | Encounter Summary ---
Demographics + + + | Address | [facility] | | | [place] [address] | + + + | Home Phone [...] | Organization | [facility] | | | and [place] [...] [place], [place] | | | | | [address] | | + + + + + | Amy Schneider | ECON | [address] | | | | | [place], [place] | | | | | [address] | | + + + + + | Alisha Schneider | ECON | Unknown | | + + + + + Care Team Providers + +------+ + | Care Tobacco Packing Machine Operator Name | Role | Phone | + +------+ + | Jet Chaney MD | PCP | | + +------+ + Reason for Visit + + + | Reason | Comments | + + + | Procedure | trigger point injections | + + + Encounter Details +--------+ + + + + | Date | Type | Department | Care Team | Description | +--------+ + + + + | 09/18/ | Procedure | [facility] [place] | Rosalio Wyatt, | Trigger point with | | 2019 | visit | PHYSIATRY [address] | PA-C [address] | back pain (Primary | | | | [address] | [address] [place] | Dx); Trigger point | | | | [place], [place] | [place] [address] | of neck | | | | [address] | [phone] | | | | | [phone] | | | +--------+ + + + [...] + | Weight | 88.5 kg (195 lb) | 09/18/2018 4:27 PM | | | | | PST | | + + + + + | Height | 157.5 cm (5' 2") | 09/18/2018 4:27 PM | | | | | PST | | + + + + + | Body Mass Index | 35.67 | 09/18/2018 4:27 PM | | | | | PST | | + + + + + documented in this encounter Patient Instructions Patient Instructions Rosalio Wyatt PA-C - 09/18/2018 4:40 PM PSTFormatting of this note m ight [...] puncture (pneumothorax) Nerve damage Date Last Reviewed: 12/15/201719995941-8846 [facility]. [address] [place] [address]. [facility] reserved. This information is not intended as a substitute for professional medical care. Always follow your healthcare professional's instructions. documented in this encounter Progress Notes Rosalio Wyatt PA-C - 09/18/2018 4:40 PM PSTFormatting of this note might be different fro m the original. CC: Neck and upper back pain Encounter Diagnoses Name Primary? Trigger point with back pain Yes Trigger point of neck HPI: Baudilio Schneider is a 38 y.o. [...] 6 different trigger points. A total of 4 mL of 1% lidocaine, 4mL of ropivacaine and 2 mL of Depomedrol 20mg/mL was injected divided between the 6 sites. The patient was instructed to ice the areas and to watch for signs of infectio n. Injection sites: bilateral lumbar paraspinals; 3 on left, 3 on right. Patient will follow-up with as needed. ELECTRONICALLY SIGNED BY: Rosalio Wyatt PA-C, 09/18/18 documented in this en counter Plan of Treatment Not on filedocumented as of this encounter Visit Diagnoses + + | Diagnosis | + + | Trigger point with back pain - Primary Backache, unspecified | + + | Trigger point of neck Cervicalgia | + + documented in this encounter Administered Medications + +--------+ +-------+------+ + | Medication Order | MAR | Action | Dose | Rate | Site | | | Action | Date | | | | + +--------+ +-------+------+ + | lidocaine 0.5% injection 4 mL | Given | 09/18/19 | 4 mLs | | Other | | 4 mL, Infiltration, ONCE, Karen | | 19 4:40 | | | (Comment | | 09/18/18 at 1700, For 1 dose | | PM PST | | | ) | + +--------+ +-------+------+ + +---+---+ | | | +---+---+ + +-------+ +-------+---+-------+ | methylPREDNISolone acetate | Given | 09/18/19 | 40 mg | | Joint | | (DEPO-MEDROL) 20 mg/mL injection | | 19 4:40 | | | | | 40 mg 40 mg, Intramuscular, | | PM PST | | | | | ONCE, Karen 09/18/18 at 1700, For 1 | | | | | | | dose, Not for IV use., | | | | | | + +-------+ +-------+---+-------+ +---+---+ | | | +---+---+ + +-------+ +-------+---+-------+ | ropivacaine (NAROPIN) 5 mg/mL | Given | 09/18/19 | 4 mLs | | Joint | | (0.5%) injection 4 mL 4 mL, | | 19 4:40 | | | | | Other, ONCE, [facility] 09/18/18 at 1700, | | PM PST | | | | | For 1 dose | | | | | | + +-------+ +-------+---+-------+ +---+---+ | | | +---+---+ documented in this encounter
--- OUTSIDE RECORDS SUMMARY | ~2020-05-24 | XMS | Encounter Summary ---
Demographics + + + | Address | [facility] | | | [place] [address] | + + + | Home Phone | | + + + | Preferred Language | Unknown | + + + | Marital Status | Single | + + + | Cheondoism Affiliation | 1041 | + + + | Race | Unknown | + + + | Ethnic Group | or | + + + Author + + + | Author | [facility] | | | and [place] | + + + | Organization | [facility] | [...] [place], [place] | | | | | [address] | | + + + + + | Amy Schneider | ECON | [address] | | | | | [place], [place] | | | | | [address] | | + + + + + | Alisha Schneider | ECON | Unknown | | + + + + + Care Team Providers + +------+ + | Care Web Analytics Developer Name | Role | Phone | + +------+ + | Jet Chaney MD | PCP | | + +------+ + Encounter Details +--------+ + + + + | Date | Type | Department | Care Team | Description | +--------+ + + + + | 02/24/ | Hospital | [facility] | Jet Chaney, | Elevated liver | | 2016 | Encounter | MED CTR LABORATORY | [address] | enzymes; Impaired | | | | [address] [place] | [place] | glucose tolerance | | | | [place] | [address] | | | | | [address] | | | | | | [phone] | | | +--------+ + + + [...] +---------+ + + | nortriptyline | Take 10 mg by mouth | 30 | 5 | 01/13/20 | | | (PAMELOR) 25 mg | nightly x 1 week, | capsule | | 16 | 6 | | capsuleIndications: | then increase to 25 | | | | | | Chronic midline low | mg nightly. To help | | | | | | back pain without | prevent back pain. | | | | | | sciatica | | | | | | + + + +---------+ + + | omeprazole | Take 1 capsule by | 30 | 3 | 12/02/19 | | | (PRILOSEC) 20 mg | mouth every morning | capsule | | 16 | 6 | | capsuleIndications: | (before breakfast). | | | | | | Gastritis | To help abdominal | | | [...] | + +--------+ + + + | IRON AND TRANSFERRIN | Routin | 02/25/2016 | Elevated liver | Results for this | | | e | 9:17 AM | enzymes | procedure are in the | | | | PDT | | results section. | + +--------+ + + + | HEMOGLOBIN A1C | Routin | 02/25/2016 | Impaired glucose | Results for this | | | e | 9:17 AM | tolerance | procedure are in the | | | | PDT | | results section. | + +--------+ + + + | FERRITIN | Routin | 02/25/2016 | Elevated liver | Results for this | | | e | 9:17 AM | enzymes | procedure are in the | | | | PDT | | results section. | + +--------+ + + + | COMPREHENSIVE | Routin | 02/25/2016 | Elevated liver | Results for this | | METABOLIC PANEL | e | 9:17 AM | enzymes | procedure are in the | | | | PDT | | results section. | + +--------+ + + + documented in this encounter Results Iron and Transferrin (02/25/2016 [...] 35.9 | 20.0 - 55.0 % | [facility] | | | SATURATION | | | [facility] | | [...] [address] | [place] | [phone] | | [facility] | | [address] | | | - LABORATORY | | | | + + + + + Ferritin (02/25/2016 9:17 AM PDT) + +-------+ + + + | Component | Value | Ref Range | Performed | Pathologist | | | | | At | Signature | + +-------+ + + + | FERRITIN | 56 | 11-<307 ng/mL | [place] | | | | | [...] [address] | [place] | [phone] | | [facility] | | [address] | | | - LABORATORY | | [...] ST. | [address] | [place] | [phone] | | [facility] | | [address] | | | - LABORATORY | | [...] | 0.63 | 0.60 - 1.30 | [facility] | | | | | mg/dL | [facility] | | | | | | MEDICAL | | | | | | CENTER - | | | | | | LABORATORY | | + + + + + + | eGFR, | >60Comment: GLOMERULAR | >=60 | [facility] | | | non- | FILTRATION | mL/min/1.73m2 | [facility] | | | [place] | RATE,ESTIMATED | | MEDICAL | | | | mL/min/1.50n1Xsbt than | | CENTER - | | [...] | 8.9 | 8.3 - 10.5 | [facility] | | | | | mg/dL | [facility] | | | | | | [...] ST. | [address] | [place] | [phone] | | [facility] | | [address] | | | - LABORATORY | | | | + + + + + documented in this encounter Visit Diagnoses + + | Diagnosis | + + | Elevated liver enzymes Nonspecific elevation of levels of transaminase or lactic acid | | dehydrogenase (LDH) | + + | Impaired glucose tolerance Impaired glucose tolerance test | + + documented in this encounter"
--- OUTSIDE RECORDS SUMMARY | ~2020-05-24 | XMS | Encounter Summary ---
Demographics + + + | Address | [facility] | | | [place] [address] | + + + | Home Phone [...] + | Organization | [facility] | | | and [...] [place], [place] | | | | | [address] | | + + + + + | Amy Schneider | ECON | [address] | | | | | [place], [place] | | | | | [address] | | + + + + + | Alisha Schneider | ECON | Unknown | | + + + + + Care Team Providers + +------+ + | Care Manager Enterprise Name | Role | Phone | + +------+ + | Jet hCaney MD | PCP | | + +------+ + Reason for Visit + + + | Reason | Comments | + + + | Back Pain | | + + + Encounter Details +--------+---------+ + + + | Date | Type | Department | Care Team | Description | +--------+---------+ + + + | 12/06/ | Office | [facility] | Jet Chaney, | Cervicalgia (Primary | | 2017 | [facility] | [address] | Dx); Chronic | | | | [address] | [place] | left-sided low back | | | | [place] | [address] | pain without | | | | [address] | | sciatica; Gastritis, | | | | [phone] | | presence of | | | | | | bleeding | | | | | | unspecified, | | | | | | unspecified | | | | | | chronicity, | | | | | | unspecified | | | | | | gastritis type; | | | | | | Tobacco abuse; | | | | | | Impaired fasting | | | | | | glucose | +--------+---------+ + + + Social History [...] + + + | Blood Pressure | 120/80 | 12/06/2016 3:56 PM | | | | | PDT | | + + + + + | Pulse | 80 | 12/06/2016 3:56 PM | | | | | PDT | | + + + + + | Temperature | 36.4 C (97.6 F) | 12/06/2016 3:56 PM | | | | | PDT | | + + + + + | Respiratory Rate | - | - | | + + + + + | Oxygen Saturation | 98% | 12/06/2016 3:56 PM | | | | | PDT | | + + + + + | Inhaled Oxygen | - | - | | | Concentration | | | | + + + + + | Weight | 93.2 kg (205 lb 6.4 | 12/06/2016 3:56 PM | | | | oz) | PDT | | + + + + + | Height | 157.5 cm (5' 2") | 12/06/2016 3:56 PM | | | | | PDT | | + + + + + | Body Mass Index | 37.57 | 12/06/2016 3:56 PM | | | | | PDT | | + + + + + documented in this encounter Patient Instructions Patient Instructions Jet Chaney MD - 12/06/2016 4:50 PM PDT BP 120/80 mmHg | Pulse 80 | Temp(Src) 36.4 C (97.6 F) (Temporal) | Ht 1.575 m (5' 2") | Wt 93.169 kg (205 lb 6.4 oz) | BMI 37.56 kg/m2 | SpO2 98% Please put a renewed focus on weight loss. Decrease the omeprazole to 20 mg daily. Please stop by the lab for blood work in February. You need to be fasting - nothing to eat or drink other than water or black coffee for 10 hours. No alcohol for 24 hours. The lab is o pen 7 AM Saturday-Saturday; 8 AM-noon on weekends (use Urgent Care entrance). Weight Management: Getting Started Healthy bodies come in all shapes and sizes. Not all bodies are made to be thin. For some p eople, a healthy weight is higher than the average weight listed on weight charts. Your [facility] provider can help you decide on a [...] Also look to your healthcare provider, r charley dietitian, and loan services professional for help. Your local hospital can give you mor e information about nutrition, exercise, and weight loss. Date Last Reviewed: 10/16/201519994809-6591 [employer]. [address] [place] [address]. All righ ts reserved. This information is [...] and fruit juices. Make your later meals fluorescent lamp replacer than your earlier meals. Brisk activity is [...] is working hard enough to burn fat. Date Last Reviewed: 02/15/201619998121-2703 [employer]. [address] [place] [address]. All righ ts reserved. This information is not intended as a substitute for professional medical care. Always follow your healthcare professional's instructions. documented in this encounter Progress Notes Jet Chaney MD - 12/06/2016 4:36 PM PDTFormatting of this note might be different fr om the original. Subjective: Patient ID: Baudilio Schneider is a 36 y.o. female here for back pain, left shoulder pain. HPI Dr Moore referred her to physical therapy. She has not had time so has not followed hanna h. She continues to have low back pain several days per week. Worse in left lower back an d does not radiate. Fluctuates between 0-8/10, currently no pain. Worse with laying flat, sitting for long periods, or flex at waist. She is not doing home exercises. She takes celia oxicam 7.5 mg on a prn basis - estimating 3 times per week. It does help a little. She solis s not take other NSAIDs in addition to the meloxicam. Facet injections are no longer covere d by insurance. No paresthesias, bowel/bladder dysfunction. For the past 2 months she occasionally gets left neck and arm pain when drinks coffee in th e morning. Described as "like I used it too much." Estimates it happens 3-4 times per week . Nothing else makes it worse. Not related to neck positions, arm positions, exertion. No fever, weakness, arm paresthesias. She stopped omeprazole. She doesn't think she needs it because she has not had abdominal p ain in several weeks. No fever, N/V, melena, hematochezia. Patient's medications, allergies, past medical, surgical, social and family histories were obtained and reviewed as appropriate. Review of Systems BP 120/80 mmHg | Pulse 80 | Temp(Src) 36.4 C (97.6 F) (Temporal) | Ht 1.575 m (5' 2") | Wt 93.169 kg (205 lb 6.4 oz) | BMI 37.56 kg/m2 | SpO2 98% Objective: Physical Exam Constitutional: Very pleasant, well developed, NAD Neck: Normal range of motion. Neck supple. No thyromegaly present. Mild left sided trapezius tenderness Cardiovascular: Normal rate, regular rhythm, normal heart sounds and intact distal pulses. Exam reveals no gallop and no friction rub. No murmur heard. Pulmonary/Chest: Breath sounds normal. No respiratory distress. She has no wheezes. She has no rales. Abdominal: Soft. She exhibits no distension. There is no tenderness. There is no rebound an d no guarding. Musculoskeletal: She exhibits no edema. Full ROM of shoulders Symmetric 5/5 strength in UE's bilaterally Shoulder impingement tests negative. Lymphadenopathy: She has no cervical adenopathy. Neurological: Spurling negative Assessment: Baudilio was seen today for back pain. Diagnoses and all orders for this visit: Cervicalgia: No concerning exam findings. Not clear why it is affected by caffeine - ROM exercises - Stop coffee - Educated on warning signs Chronic left-sided low back pain without sciatica: Stable. Not compliant with PT. Facet injections not covered. Dr Moore's note reviewed. Greatly appreciate his assistance - Weight loss - Continue meloxicam - Encouraged PT Gastritis, presence of bleeding unspecified, unspecified chronicity, unspecified gastritis type: Symptomatically improved. Tiny areas of intestinal metaplasia of uncertain significa nce. - Decrease omeprazole to 20 mg once daily given abnormal biopsy result. Consider repeat E GD in 3 years - omeprazole (PRILOSEC) 20 mg capsule; Take 1 capsule by mouth every morning (before br eakfast). To help abdominal pain Tobacco abuse - Advised to quit Impaired fasting glucose - Diet, exercise, weight loss - Basic Metabolic Panel; Future - Hemoglobin A1C; Future FU: 4 months Prashanth Chaney MD raik, PRINCE Ling - 12/06/2016 3:54 PM PDTPatient is here for a general follow-up. She states that when she drinks caffeine, she gets pain in her left shoulder, left arm and chest.Electronically sign ed by Kemi Williamson LPN at 12/06/2016 4:58 PM PDTdocumented in this encounter Plan of Treatment Not on filedocumented as of this encounter Results Hemoglobin A1C (03/07/2017 4:48 PM PDT) + +-------+ + + + | Component | Value | Ref Range | Performed | Pathologist | | | | | At | Signature | + +-------+ + + + | Hemoglobin | 5.9 | 4.3 - 6.0 % | [facility] | | | A1c | | | [facility] | | | | | | MEDICAL | | | | | | CENTER - | | | | | | LABORATORY | | + +-------+ + + + | Estimated | 123 | mg/dL | [facility] | | | Average | | | [...] + | [facility] | [address] | [place] | [phone] | | [facility] | | [address] | | | - LABORATORY | | | | + + + + + Basic Metabolic Panel (03/07/2017 4:48 PM PDT) + + + + + + | Component | Value | Ref Range | Performed | Pathologist | | | | | At | Signature | + + + + + + | Na | 133 (L) | 136 - 149 | [facility] | | | | | mmol/L | [facility] | | | | | | MEDICAL | | | | | | CENTER - | | | | | | LABORATORY | | + + + + + + | K | 3.5 | 3.5 - 5.1 | [facility] | | | | | mmol/L | [facility] | | | | | | MEDICAL | | | | | | CENTER - | | | | | | LABORATORY | | + + + + + + | Cl | 98 | 98 - 109 mmol/L | [facility] | | | | | | [facility] | | | | | | MEDICAL | | | | | | CENTER - | | | | | | LABORATORY | | + + + + + + | CO2 | 28 | 24 - 31 mmol/L | [facility] [...] + + + + | Glucose | 120 (H) | 70 - 109 mg/dL | [facility] | | | | | | [facility] | | | | | | MEDICAL | | | | | | CENTER - | | | | | | LABORATORY | | + + + + + + | BUN | 7 | 7 - 18 mg/dL | [facility] | | | | | | [facility] | | | | | | MEDICAL | | | | | | CENTER - | | | | | | LABORATORY | | + + + + + + | Creatinine | 0.64 | 0.60 - 1.30 | [facility] | | | | | mg/dL | [facility] | | | | | | MEDICAL | | | | | | CENTER - | | | | | | LABORATORY | | + + + + + + | eGFR, | >60Comment: GLOMERULAR | >=60 | [facility] | | | non- | FILTRATION | mL/min/1.73m2 | [facility] | | | [place] | RATE,ESTIMATED | | MEDICAL | | | | mL/min/1.20z8Negn than | | CENTER - | | [...] + + + + | BUN/Creatin | 10.9 | | [facility] | | | ine [...] | + + + + + | [facility] | [address] | [place] | [phone] | | [facility] | | [address] | | | - LABORATORY | | | | + + + + + documented in this encounter Visit Diagnoses + + | Diagnosis | + + | Cervicalgia - Primary | + + | Chronic left-sided low back pain without sciatica | + + | Gastritis, presence of bleeding unspecified, unspecified chronicity, unspecified | | gastritis type | + + | Tobacco abuse Tobacco use disorder | + + | Impaired fasting glucose | + + documented in this encounter
--- OUTSIDE RECORDS SUMMARY | ~2020-05-24 | XMS | Encounter Summary ---
Demographics + + + | Address | [facility] | | | [place] [address] | + + + | Home Phone | | + + + | Preferred Language | Unknown | + + + | Marital Status | Single | + + + | Episcopal Affiliation | 1041 | + + + | Race | Unknown | + + + | Ethnic Group | or | + + + Author + + + | Author | [facility] | | | and [place] | + + + | Organization | [facility] | | | and [...] [place], [place] | | | | | [address] | | + + + + + | Amy Schneider | ECON | [address] | | | | | [place], [place] | | | | | [address] | | + + + + + | Alisha Schneider | ECON | Unknown | | + + + + + Care Team Providers + +------+ + | Care Vegetable Farmer Name | Role | Phone | + +------+ + | Jet Chaney MD | PCP | | + +------+ + Reason for Visit + +--------+ + | Reason | Onset | Comments | | | Date | | + +--------+ + | Results, Pathology | 09/29/ | endoscopy results | | | 2013 | | + +--------+ + Encounter Details +--------+ + + + + | Date | Type | Department | Care Team | Description | +--------+ + + + + | 09/29/ | Telephone | [facility] | [place] MD | Results, Pathology | | 2013 | | GASTROENTEROLOGY | [address], [place] | (endoscopy results) | | | | [address] [place] | [address] [place], [place] | | | | | [address] [place], [place] | [address] | | | | | [address] | | | | | | [phone] | | | +--------+ + + + [...] Encounter - Maryanne Leonard RN - 09/29/2013 2:03 PM PSTCalled patient back advise d that pathology was negative for h.pylori and negative for atypia, patient continues with e pigastric and side pain, offered follow up appt with agatha or , phone call to Joanne to make appt. elephone Gallo rashid - Horacio, Maryanne Dempsey RN - 09/29/2013 10:27 AM PSTCalled patient and left message to dora santana back to our office. reviewed pathology states h.pylori biopsy came back negative , esophagus biopsy came back negative, no change in medications at this time, follow up egd in approx 3 years time. d ocumented in this encounter Plan of Treatment Not on filedocumented as of this encounter Visit Diagnoses Not on filedocumented in this encounter"
--- OUTSIDE RECORDS SUMMARY | ~2020-05-24 | XMS | Encounter Summary ---
Demographics + + + | Address | [facility] | | | [place] [address] | + + + | Home Phone | | + + + | Preferred Language | Unknown | + + + | Marital Status | Single | + + + | Spiritism Affiliation | 1041 | + + + | Race | Unknown | + + + | Ethnic Group | or | + + + Author + + + | Author | [facility] | | | and [place] | + + + | Organization | [facility] | | | and [place] [...] [place], [place] | | | | | [address] | | + + + + + | Amy Schneider | ECON | [address] | | | | | [place], [place] | | | | | [address] | | + + + + + | Alisha Schneider | ECON | Unknown | | + + + + + Care Team Providers + +------+ + | Care Mold Cutting Machine Operator Name | Role | Phone | + +------+ + | Jet Chaney MD | PCP | | + +------+ + Encounter Details +--------+ + + + + | Date | Type | Department | Care Team | Description | +--------+ + + + + | 05/23/ | Abstract | [facility] | Eloy Moore, | | | 2015 | | PHYSIATRY [address] | [address] | | | | | [address] | [place] | | | | | [place] | [address] | | | | | [address] | | | | | | [phone] | | | +--------+ + + + [...]
--- OUTSIDE RECORDS SUMMARY | ~2020-05-24 | XMS | Encounter Summary ---
Demographics + + + | Address | [facility] | | | [place] [address] | + + + | Home Phone [...] Organization | [facility] [...] [place], [place] | | | | | [address] | | + + + + + | Amy Schneider | ECON | [address] | | | | | [place], [place] | | | | | [address] | | + + + + + | Alisha Schneider | ECON | Unknown | | + + + + + Care Team Providers + +------+ + | Care Chemical Inspector Name | Role | Phone | + [...] Chronic | Jet Dempsey MD | [address] | | | | | abdominal | [address] | [place], | | | | | pain | [address] | [place] [address] | | | | | Procedures | [place], [place] | Phone: | | | | | CT Abdomen | [address] | [phone] | | | | | Pelvis w | Phone: | Fax: | | | | | Contrast | [phone] | [phone] | | | | | | Fax: | | | | | | | [phone] | | +--------+--------+ + + + + [...] Chronic | Jet Dempsey MD | [address] | | | | | abdominal | [address] | [place], | | | | | pain | [address] [place] | [place] [address] | | | | | Procedures | [place], [place] | Phone: | | | | | CT Abdomen | [address] | [phone] | | | | | Pelvis w | Phone: | Fax: | | | | | Contrast | [phone] | [phone] | | | | | | Fax: | | | | | | | [phone] | | +--------+--------+ + + + + Encounter Details +--------+ + + + + | Date | Type | Department | Care Team | Description | +--------+ + + + + | 02/04/ | [facility] | [facility] | Jet Chaney, | Chronic abdominal | | 2013 | Encounter | MED CTR [address] | [address] | pain | | | | [place], | [place], [place] | | | | | [place] [address] | [address] | | | | | [phone] | | | +--------+ + + + [...] documented as of this encounter Miscellaneous Notes Miscellaneous - ONBASE SCAN [facility] - 02/09/2014 12:00 AM PDT documented in this encounter Plan of Treatment Not on filedocumented as of this encounter Procedures + +--------+ + + + | Procedure Name | Priori | Date/Time | Associated Diagnosis | Comments | | | ty | | | | + +--------+ + + + | CT ABDOMEN PELVIS W | Routin | 02/04/2014 | Chronic abdominal | Results for this | | CONTRAST | e | 9:02 AM | pain | procedure are in the | | | | PDT | | results section. | + +--------+ + + + documented in this encounter Results CT Abdomen Pelvis w [...] + | MISCELLANEOUS LAB | | | [phone] | + +---------+ + + | MISCELANIOUS LAB | | | [phone] | + +---------+ + + documented in [...] | | | + +--------+ +---------+------+------+ | iohexol (OMNIPAQUE 350) 350 | Given | 02/05/20 | 100 mLs | | | | mg/mL injection 100 mL 100 mL, | | 14 9:03 | | | | | Intravenous, ONCE PRN, Other, | | AM PDT | | | | | Starting [facility] 02/04/14 at 0902, For | | | | | | | 1 dose, Cat Scanner | | | | | | + +--------+ +---------+------+------+ +---+---+ | | | +---+---+ documented in this encounter"
--- OUTSIDE RECORDS SUMMARY | ~2020-05-24 | XMS | Encounter Summary ---
Demographics + + + | Address | [facility] | | | [place] [address] | + + + | Home Phone [...] + + + | Author | [facility] | | | and [place] | + + + | Organization | [facility] [...] [place], [place] | | | | | [address] | | + + + + + | Amy Schneider | ECON | [address] | | | | | [place], [place] | | | | | [address] | | + + + + + | Alisha Schneider | ECON | Unknown | | + + + + + Care Team Providers + +------+ + | Care Artist Suspect Name | Role | Phone | + [...] Incidental | Jet Dempsey MD | [address] | | | | | lung nodule, | [address] | [place], | | | | | > 3mm and < | [place] | [place] [address] | | | | | 8mm | [place] | Phone: | | | | | Procedures | [address] | [phone] | | | | | CT Chest wo | Phone: | Fax: | | | | | Contrast | [phone] | [phone] | | | | | | Fax: | | | | | | | [phone] | | +--------+--------+ + + + + Reason for Visit +--------+--------+ + | Reason | Onset | Comments | | | Date | | +--------+--------+ + | Other | 02/21/ | | | | 2015 | | +--------+--------+ + Encounter Details +--------+ + + + + | Date | Type | Department | Care Team | Description | +--------+ + + + + | 02/21/ | Telephone | [facility] | Jet Chaney, | Other | | 2014 | | MED CTR PROVIDER | MD Claudy BOWDEN | | | | | [place] [address] | [place] | | | | | [place] | [address] | | | | | [address] | | | | | | [phone] | | | +--------+ + + + [...] Telephone Encounter - Tamar Lugo RN - 02/21/2015 3:35 PM PDTPatient returns call. Gave her message below. She verbalized understanding. elephone Encounter - Kemi Williamson LPN - 02/21/2015 3:30 PM PDTCalled patient and left a message to call back. elephone Encounter - Kemi Williamson LPN - 2014 3:02 PM PDTCalled patient and notified her. She is scheduled for March 01 at 9AM with a 8:45 check-in. No prep. P M PDTTelephone Encounter - Jet Chaney MD - 02/21/2015 4:01 AM PDTWill you please rem ind Sochil that she is due for a repeat CT scan of her lungs to follow-up on the small nodul e seen last year. It has been ordered. Thanks, Prashanth Chaney MD documented in this e ncounter Plan of Treatment Not on filedocumented as of this encounter Results CT Chest wo Contrast [...]
--- OUTSIDE RECORDS SUMMARY | ~2020-05-24 | XMS | Encounter Summary ---
Demographics + + + | Address | [facility] | | | [place] [address] | + + + | Home Phone | | + + + | Preferred Language | Unknown | + + + | Marital Status | Single | + + + | Holiness Affiliation | 1041 | + + + | Race | Unknown | + + + | Ethnic Group | or | + + + Author + + + | Author | [facility] | | | and [place] | + + + | Organization | [facility] | | | and [place] | + + + | Address | Unknown | + + + | Phone | Unavailable | + + + Support + + + + + | Name | Relationship | Address | Phone | + + + + + | Luke Mnotgomery | ECON | [address] | | | | | [place] | | | | | [place], [place] | | | | | [address] | | + + + + + | Amy Schneider | ECON | [address] | | | | | [place], [place] | | | | | [address] | | + + + + + | Alisha Schneider | ECON | Unknown | | + + + + + Care Team Providers + +------+ + | Care Curriculum Writer Name | Role | Phone | + +------+ + | Jet Chaney MD | PCP | | + +------+ + Encounter Details +--------+ + + + + | Date | Type | Department | Care Team | Description | +--------+ + + + + | 10/10/ | Hospital | [facility] | Jet Chaney, | RUQ pain; Elevated | | 2013 - | Encounter | MED CTR XRAY [address] | [address] | liver enzymes | | | | [place] | [place], [place] | | | 10/12/ | | [place] [address] | [id number] | | | 2012 | | [phone] | | | +--------+ + + + [...] this encounter Progress Kemi Sandoval LPN - 10/16/2012 5:03 PM PSTPatient called back and was notified.Electro nically signed by Kemi Williamson LPN at 10/16/2012 5:03 PM PSTKemi Williamson LPN - 4:55 PM PSTLeft message to call back. documented in this encounter Plan of Treatment Not on filedocumented as of this encounter Procedures + +--------+ + + + | Procedure Name | Priori | Date/Time | Associated Diagnosis | Comments | | | ty | | | | + +--------+ + + + | US ABDOMEN LIMITED | Routin | 10/10/2012 | RUQ pain Elevated | Results for this | | | e | 11:15 AM | liver enzymes | procedure are in the | | | | PST | | results section. | + +--------+ + + + | XR ABDOMEN AP | Routin | 10/10/2012 | | Results for this | | | e | 9:37 AM | | procedure are in the | | | | PST | | results section. | + +--------+ + + + documented in this encounter Results US Abdomen Limited (10/10/2012 11:15 AM PST) + + | Specimen | + + | | + + + + + | Narrative | Performed At | + + + | [facility] | [place] | | Department [address] | [facility] | | [ rep [address]] [ rep [facility] | | st zip] Signed | - IMAGING | | | | | Patient Name: PAVITHRA SCHNEIDER Physician: | | | STOD. : 1980 Age: 32 Sex: F Unit #: [id number] | | | Exam Date: 10/10/12 Location: [facility] | | | Report #: [id number] Page: | | | %(RAD)RES..mtdd.print.filter("pg") of %(RAD) | | | RES..mtdd.print.filter("tpg") | | | | | | Accession Number: [id number] | | | ULTRASOUND OF THE ABDOMEN [...] Transcribed Date/Time: 10/10/2012 11:20 | | | Wind Turbine Service Technician: <<Signature on File>> | | | | | | Jose Cherry MD10/12/12 0043 <Electronically signed by Jose Cherry | | | MD> Jose Cherry MD 10/10/12 1115 Wind Turbine Service Technician: | | | Super Derivatives Pxvbesjsgjthz93/25/13 1120 Jet Chaney, | | | MD | | + + + + + + + + | Performing | Address | City/[facility] | Phone Number | | Organization | | | | + + + + + | [facility] | [address] | [place] | [phone] | | [facility] | | [address] | | | - IMAGING | | | | + + + + + XR Abdomen AP (10/10/2012 9:37 AM PST) + + | Specimen | + + | | + + + + + | Narrative | Performed At | + + + | Accession Number: [id number] ULTRASOUND OF THE ABDOMEN | | | CLINICAL HISTORY: RIGHT UPPER QUADRANT PAIN, MILDLY ELEVATED LIVER | | | FUNCTION TESTS. COMPARISON: None. PROTOCOL: Ultrasound | | | images of the abdomen. FINDINGS: The liver is echodense, | | | consistent with diffuse fatty infiltration. No focal lesions are | | | seen. The gallbladder is no visualized, consistent with | | | previous cholecystectomy. The pancreas demonstrates a coarse | | | echotexture. However, no focal abnormalities are visualized. | | | The right kidney is 11.0 x 5.3 x 6.2 cm. The parenchyma is normal. | | | There is no significant hydronephrosis. There is normal color | | | flow in the IVC, portal veins, hepatic veins and splenic vein. | | | The study was limited by the patient's body habitus. IMPRESSION: | | | 1. FATTY LIVER. 2. PREVIOUS CHOLECYSTECTOMY. Dictated | | | Date/Time: 10/10/2012 11:15 Transcribed Date/Time: 10/10/2012 | | | 11:20 Wind Turbine Service Technician: <<Signature on File>> | | | Jose | | | MD Dilip10/12/12 0043 <Electronically signed by Jose Cherry MD> | | | Jose Cherry MD 10/10/12 1115 Wind Turbine Service Technician: Daniel | | | Xabbkguilydlc53/25/13 1120 Jet Chaney MD | | + + + + + | Procedure Note | + + | Abram Crisostomo Results In - 02/06/2016 8:57 AM PDT Accession Number: [id number] | | OF THE ABDOMEN CLINICAL HISTORY: RIGHT UPPER QUADRANT PAIN, MILDLY ELEVATED LIVER | | FUNCTION TESTS. COMPARISON: None. PROTOCOL: Ultrasound images of the abdomen. FINDINGS: | | The liver is echodense, consistent with diffuse fatty infiltration. No focal lesions | | are seen. The gallbladder is no visualized, consistent with previous cholecystectomy. | | The pancreas demonstrates a coarse echotexture. However, no focal abnormalities are | | visualized. The right kidney is 11.0 x 5.3 x 6.2 cm. The parenchyma is normal. There | | is no significant hydronephrosis. There is normal color flow in the IVC, portal veins, | | hepatic veins and splenic vein. The study was limited by the patient's body habitus. | | IMPRESSION: 1. FATTY LIVER. 2. PREVIOUS CHOLECYSTECTOMY. Dictated Date/Time: | | 10/10/2012 11:15Transcribed Date/Time: 10/10/2012 11:20Transcriptionist: | | <<Signature on File>> Jose | | MD Dilip10/12/12 0043<Electronically signed by Jose Cherry MD>Jose Cherry MD 10/10/12 | | 1115Transcriptionist: Super Derivatives Cygfyeedhkytd53/25/13 1120Josudeep Chaney MD | |The gallbladder is no visualized, consistent with previous cholecystectomy. | | | |The pancreas demonstrates a coarse echotexture. However, no focal abnormalities are visual ized. | | | |The right kidney is 11.0 x 5.3 x 6.2 cm. The parenchyma is normal. There is no significan t hydronephrosis. | | | |There is normal color flow in the IVC, portal veins, hepatic veins and splenic vein. | | | |The study was limited by the patient's body habitus. | | | |IMPRESSION: | |1. FATTY LIVER. | | | |2. PREVIOUS CHOLECYSTECTOMY. | | | |Dictated Date/Time: 10/10/2012 11:15 | |Transcribed Date/Time: 10/10/2012 11:20 | |Wind Turbine Service Technician: | | | | | | | |<<Signature on File>> | | | |Jose Cherry MD10/12/12 0043 | |<Electronically signed by Jose Cherry MD> | | | | | |Jose Cherry MD 10/10/12 1115 | |Wind Turbine Service Technician: Super [employer]atives Djmjvczkcntdh07/25/13 1120 | | | | | |Jet Chaney MD | + + documented in this encounter Visit Diagnoses + + | Diagnosis | + + | RUQ pain Abdominal pain, right upper quadrant | + + | Elevated liver enzymes Nonspecific elevation of levels of transaminase or lactic acid | | dehydrogenase (LDH) | + + documented in this encounter
--- OUTSIDE RECORDS SUMMARY | ~2020-05-24 | XMS | Encounter Summary ---
Demographics + + + | Address | [facility] | | | [place] [address] | + + + | Home Phone | | + + + | Preferred Language | Unknown | + + + | Marital Status | Single | + + + | Pentecostalism Affiliation | 1041 | + + + | Race | Unknown | + + + | Ethnic Group | or | + + + Author + + + | Author | [facility] | | | and [place] | + + + | Organization | [facility] | | | and [place] [...] [place], [place] | | | | | [address] | | + + + + + | Amy Schneider | ECON | [address] | | | | | [place], [place] | | | | | [address] | | + + + + + | Alisha Schneider | ECON | Unknown | | + + + + + Care Team Providers + +------+ + | Care Supervisor Esters And Emulsifiers Name | Role | Phone | + +------+ + | Jet Chaney MD | PCP | | + +------+ + Reason for Visit + + + | Reason | Comments | + + + | Diabetes | | + + + Encounter Details +--------+ + + + + | Date | Type | Department | Care Team | Description | +--------+ + + + + | 12/17/ | Virtual | [facility] | Jet Chaney, | Controlled type 2 | | 2020 | Office | [facility] [place] | [address] | diabetes mellitus | | | Visit | [address] | [place] | with | | | | [place] | [address] | microalbuminuria, | | | | [address] | | without long-term | | | | [phone] | | current use of | | | | | | insulin (HCC) | | | | | | (Primary Dx); | | | | | | Essential | | | | | | hypertension; | | | | | | Hypothyroidism, | | | | | | unspecified type; | | | | | | Sacroiliitis (HCC) | +--------+ + + + + Social [...] + documented as of this encounter Progress Notes Jet Chaney MD - 12/18/2019 1:30 PM PDTFormatting of this note might be different fr om the original. Subjective: Patient ID: Baudilio Schneider is a 39 y.o. female who is here today for Diabetes Patient verbally confirmed choice to initiate care by telephone and gave consent to receive care by telephone due to COVID-19. Start Time: 1353 End Time: 1404 HPI She met with Dr Stern yesterday. He started her on Cytomel 5 mcg and continued her on le vothyroxine 100 mcg daily. He also increased her metformin to 1000 mg twice daily. Fasting blood sugars have been 90-100's. She increased lisinopril to 20 mg daily. Tolerating well. No light headedness, dizziness, CP, SOB, cough She met with Vi Noguera. They are requesting approval for SI steroid injections. She quit smoking ~3.5 weeks ago. Patient's medications, allergies, past medical, surgical, social [...] mouth 2 times daily. Fo r diabetes 60 tablet 2 pantoprazole (PROTONIX) 40 mg tablet Take 1 tablet by mouth every morning (before break fast). To help stomach inflammation 30 tablet 5 Review of Systems Objective: There were no vitals taken for this visit. Physical Exam Appointment on 12/07/2019 Component Date Value Ref Range Status Hemoglobin A1c 12/07/2019 6.4* 4.3 - 6.0 % Final Estimated Average Glucose 12/07/2019 137 mg/dL Final Na 12/07/2019 140 136 - 145 mmol/L Final K 12/07/2019 4.2 3.5 - 5.1 mmol/L Final Cl 12/07/2019 103 98 - 107 mmol/L Final CO2 12/07/2019 30 21 - 32 mmol/L Final Anion Gap 12/07/2019 7 2 - 16 mmol/L Final Glucose 12/07/2019 105 74 - 106 mg/dL Final BUN 12/07/2019 8 7 - 18 mg/dL Final Creatinine 12/07/2019 0.69 0.55 - 1.02 mg/dL Final eGFR if not 12/07/2019 >60 >=60 mL/min/1.73m2 Final GLOMERULAR FILTRATION RATE,ESTIMATED mL/min/1.73m2 Less than 60 Chronic kidney disease,if found over a 3-month period. Less than 15 Kidney failure For Americans,multiply the calculated GFR by 1.21. Calcium 12/07/2019 8.6 8.5 - 10.1 mg/dL Final Albumin 12/07/2019 3.6 3.4 - 5.0 g/dL Final Bilirubin Total 12/07/2019 0.5 0.2 - 1.0 mg/dL Final Total Protein 12/07/2019 7.4 6.4 - 8.2 g/dL Final AST 12/07/2019 25 15 - 37 U/L Final ALT 12/07/2019 84* 14 - 59 U/L Final Alkaline Phosphatase 12/07/2019 77 46 - 116 U/L Final Globulin 12/07/2019 3.8 2.1 - 3.8 g/dL Final Albumin/Globulin Ratio 12/07/2019 0.9 0.8 - 2.0 Final BUN/Creatinine Ratio 12/07/2019 11.6 Final Assessment & Plan: 1. Controlled type 2 diabetes mellitus with microalbuminuria, without long-term current use of insulin ([facility]): A1c and LDL well controlled. BP well controlled at physiatry appointmen t today. Vaccines UTD. Due for eye exam - I am fine with higher dose metformin. Reviewed pros/cons of this - Continue to work on diet, exercise, weight loss - Labs in ~4 months - metFORMIN (GLUCOPHAGE-XR) 500 mg 24 hr tablet; Take 2 tablets by mouth 2 times daily. For diabetes Dispense: 360 tablet; Refill: 1 - Comprehensive Metabolic Panel; Future - Lipid Panel; Future - Hemoglobin A1C; Future 2. Essential hypertension - Continue lisinopril 20 mg daily 3. Hypothyroidism, unspecified type - Continue levothyroxine and cytomel per Dr Stern - liothyronine (CYTOMEL) 5 mcg tablet; Take 1 tablet by mouth Daily. For low thyroid Dispe nse: 30 tablet Sacroiliitis: Vi's note reviewed. Greatly appreciate their assistance - Await approval of steroid injections. Return in about 4 months (around 04/18/2020). I spent a total of 15 minutes of Mod complexity counseling with the patient and/or family - this includes time spent documenting and coordinating care.. Prashanth Chaney MD documented in this e ncounter Plan of Treatment Not on filedocumented as of this encounter Results Hemoglobin A1C (05/07/2020 10:37 AM PDT) + [...] ST. | [address] | [place], [place] | [phone] | | [facility] | | [address] | | | - LABORATORY | | | | + + + + + Lipid Panel (05/07/2020 10:37 AM PDT) + +---------+ + + + | Component | Value | Ref Range | Performed | Pathologist | | | | | At | Signature | + +---------+ + + + | Triglycerid | 165 (H) | <=150 mg/dL | [facility] | | | es | | | [facility] | | | | | | [facility]ICAL | | | | | | CENTER - | | | | | | LABORATORY | | + +---------+ + + + | Cholesterol | 154 | <=200 mg/dL | [facility] | | | | | | [facility] | | | | | | MEDICAL | | | | | | CENTER - | | | | | | LABORATORY | | + +---------+ + + + | HDL | 36 (L) | 40 - 60 mg/dL | [facility] | | | | | | [facility] [...] LDL, | 85 | <=130 mg/dL | [facility] | | [address] | [place] | [phone] | | [facility] | | [address] | | | - LABORATORY | | [...] (L) | 9 - 23 mg/dL | [facility] | | | | | | [facility] | | | | | | MEDICAL | | | | | | CENTER - | | | | | | LABORATORY | | + + + + + + | Creatinine | 0.53 (L) | 0.55 - 1.02 | [facility] | | | | | mg/dL | [facility] | | | | | | MEDICAL | | | | | | CENTER - | | | | | | LABORATORY | | + + + + + + | eGFR, | >60Comment: GLOMERULAR | >=60 | [facility] | | | non- | FILTRATION | mL/min/1.73m2 | [facility] | | | English | RATE,ESTIMATED | | MEDICAL | | | | mL/min/1.02m3Qkkk than | | CENTER - | | | | 60 Chronic kidney | | LABORATORY | | | | disease,if found over a | | | | | | 3-month period.Less than | | | | | | 15 Kidney failure | | | | + + + + + + | eGFR, | >60Comment: GLOMERULAR | >=60 | [facility] | | | | FILTRATION | mL/min/1.73m2 | [facility] | | | English | RATE,ESTIMATED | | MEDICAL | | | | mL/min/1.41f1Swyk than | | CENTER - | | [...] 4.4 | 3.2 - 4.8 g/dL | [facility] | | | | [...] + + | [facility] | [address] | [place] | [phone] | | [facility] | | [address] | | | - LABORATORY | | | | + + + + + documented in this encounter Visit Diagnoses + + | Diagnosis | + + | Controlled type 2 diabetes mellitus with microalbuminuria, without long-term current | | use of insulin (HCC) - Primary | + + | Essential hypertension Unspecified essential hypertension | + + | Hypothyroidism, unspecified type | + + | Sacroiliitis (HCC) Sacroiliitis, not elsewhere classified | + + documented in this encounter"
--- OUTSIDE RECORDS SUMMARY | ~2020-05-24 | XMS | Encounter Summary ---
Demographics + + + | Address | [facility] | | | [place] [address] | + + + | Home Phone | | + + + | Preferred Language | Unknown | + + + | Marital Status | Single | + + + | Congregational Affiliation | 1041 | + + + | Race | Unknown | + + + | Ethnic Group | or | + + + Author + + + | Author | [facility] | | | and [place] | + + + | Organization | [facility] | | | and [...] [place], [place] | | | | | [address] | | + + + + + | Amy Schneider | ECON | [address] | | | | | [place], [place] | | | | | [address] | | + + + + + | Alisha Schneider | ECON | Unknown | | + + + + + Care Team Providers + +------+ + | Care Parish Worker Name | Role | Phone | + +------+ + PCP | Unavailable | + +------+ + Encounter Details +--------+ + + + + | Date | Type | Department | Care Team | Description | +--------+ + + + + | 05/27/ | Hospital | [facility] | | | | 2003 | Encounter | MED CTR EMER[facility]Y | | | | | | [place] [address] | | | | | | [place] | | | | | | [address] | | | | | | [phone] | | | +--------+ + + + [...]
--- OUTSIDE RECORDS SUMMARY | ~2020-05-24 | XMS | Encounter Summary ---
Demographics + + + | Address | [facility] | | | [place] [address] | + + + | Home Phone [...] + | Organization | [facility] | | | and [...] [place], [place] | | | | | [address] | | + + + + + | Amy Schneider | ECON | [address] | | | | | [place], [place] | | | | | [address] | | + + + + + | Alisha Schneider | ECON | Unknown | | + + + + + Care Team Providers + +------+ + | Care Lodging Manager Name | Role | Phone | + +------+ + | Jet Chaney MD | PCP | | + +------+ + Reason for Visit + +--------+ + | Reason | Onset | Comments | | | Date | | + +--------+ + | Appointment | 09/18/ | endoscopy | | | 2013 | | + +--------+ + Encounter Details +--------+ + + + + | Date | Type | Department | Care Team | Description | +--------+ + + + + | 09/18/ | Telephone | [facility] | [place] MD | Appointment | | 2013 | | GASTROENTEROLOGY | [address] | (endoscopy) | | | | [address] | [address] [place] | | | | | [address] [place], [place] | [address] | | | | | [address] | | | | | | [phone] | | | +--------+ + + + [...] Encounter - Maryanne Leonard RN - 09/18/2013 2:50 PM PSTJoelle called referral has been authorized, called patient and let her know, she verbalized understanding.Electronical ly signed by Maryanne Leonard RN at 09/18/2013 2:50 PM PSTTelephone Encounter - Maryanne Leonard RN - 09/18/2013 1:32 PM PSTCalled patient questioned her symptoms she states she is having reflux symptoms states has acid taste in mouth, chest pain after eating, let her know that will let referral person know of her symptoms and will submit to insurance advised will call patient back at [phone] and let her know if it is going to be authorized or not. Shaun carey notified and submitting auth right now.Electronically signed by Maryanne Leonard RN at 2013 1:35 PM PSTdocumented in this encounter Plan of Treatment Not on filedocumented as of this encounter Visit Diagnoses Not on filedocumented in this encounter"
--- OUTSIDE RECORDS SUMMARY | ~2020-05-24 | XMS | Encounter Summary ---
Demographics + + + | Address | [facility] | | | [place] [address] | + + + | Home Phone | | + + + | Preferred Language | Unknown | + + + | Marital Status | Single | + + + | Mormon Affiliation | 1041 | + + + | Race | Unknown | + + + | Ethnic Group | or | + + + Author + + + | Author | [facility] | | | and [place] | + + + | Organization | [facility] | | | and [...] [place], [place] | | | | | [address] | | + + + + + | Amy Schneider | ECON | [address] | | | | | [place], [place] | | | | | [address] | | + + + + + | Alisha Schneider | ECON | Unknown | | + + + + + Care Team Providers + +------+ + | Care Street Cleaning Equipment Operator Name | Role | Phone [...] | Specialty | Gastroenterol | Diagnoses | Leo, | Rubén, | | | Services | ogy | Esophageal | Juan M Portillo, | Hill Holder MD | | | Required | | reflux | [address], | | | | | Abdominal | [address] | [address] | | | | | pain, | [address] [place] | [place], | | | | | epigastric | [place], [place] | [place] [address] | | | | | Nonspecific | [address] | Phone: | | | | | abnormal | Phone: | [phone] | | | | | results of | [phone] | Fax: | | | | | liver | Fax: | [phone] | | | | | function | [phone] | | | | | | study | | | | | | | Heartburn | | | | | | | Procedures | | | | | | | [place] | | | | | | | ESOPHAGOGAST | | | | | | | RODUODENOSCO | | | | | | | PY TRANSORAL | | | | | | | DIAGNOSTIC | | | | | | | [place] EDG | | | | | | | TRANSORAL | | | | | | | BIOPSY | | | | | | | SINGLE/MULTI | | | | | | | PLE | | | +--------+ + + + + + Reason for Visit + + + | Reason | Comments | + + + | Abdominal Pain | | + + + Consultation (Routine) +--------+ + + + + [...] Chronic | Jet Dempsey MD | Hill oHlder MD | | | Required | | abdominal | [address] | [address], | | | | | pain | [address] [place] | [address] | | | | | | [place], [place] | [place], | | | | | | [address] | [place] [address] | | | | | | Phone: | Phone: | | | | | | [phone] | [phone] | | | | | | Fax: | Fax: | | | | | | [phone] | [phone] | +--------+ + + + + + Encounter Details +--------+---------+ + + + | Date | Type | Department | Care Team | Description | +--------+---------+ + + + | 08/27/ | [facility] | Juan M Bailey, | Epigastric abdominal | | 2012 | Visit | GASTROENTEROLOGY | MD [address] | pain (Primary Dx) | | | | [address] | [address] [place], | | | | | [address] [place], [place] | [place] [address] | | | | | [address] | [phone] | | | | | [phone] | | | +--------+---------+ + + + [...] + | Blood Pressure | 110/80 | 08/27/2013 4:43 PM | | | | | PST | | + + + + + | Pulse | 68 | 08/27/2013 4:43 PM | | | | | PST | | + + + + + | Temperature | 36.7 C (98.1 F) | 08/27/2013 4:43 PM | | | | | PST | | + + + + + | Respiratory Rate | 16 | 08/27/2013 4:43 PM | | | | | PST | | + + + + + | Oxygen Saturation | - | - | | + + + + + | Inhaled Oxygen | - | - | | | Concentration | | | | + + + + + | Weight | 99.8 kg (220 lb) | 08/27/2013 4:43 PM | | | | | PST | | + + + + + | Height | 157.5 cm (5' 2") | 08/27/2013 4:43 PM | | | | | PST | | + + + + + | Body Mass Index | 40.24 | 08/27/2013 4:43 PM | | | | | PST | | + + + + + documented in this encounter Progress Juan M Suazo MD - 08/27/2013 5:10 PM PSTFormatting of this note might be different fr om the original. Subjective: Patient ID: Baudilio Schneider is a 33 y.o. female. HPI Comments: See dictation Abdominal Pain Associated symptoms include arthralgias. Filed Vitals: 08/27/13 1643 BP: 110/80 Pulse: 68 Temp: 36.7 C (98.1 F) Resp: 16 PainSc: 0 - No pain No Known Allergies Past Medical History Diagnosis Date Allergy Hypothyroid Lower back pain Hand numbness Hurts daily Insomnia Thyroid disorder GERD (gastroesophageal reflux disease) Vitamin d deficiency Seasonal allergies Obesity Stress Gallbladder disease Depression Past Surgical History Procedure Date Tonsillectomy 2010 Cholecystectomy Family History Problem Relation Age of Onset Diabetes Father High blood pressure Father High blood pressure Sister Kidney disease Paternal Grandfather Depression Sister History Social History Marital Status: Single Spouse Name: Luke Number of Children: 4 Years of Education: N/A Occupational History [employer] in [place] Social History Main Topics Smoking status: Current Some Day Smoker -- 13 years Smokeless tobacco: Never Used Comment: 2 daily off and on Alcohol Use: Yes Comment: Very occasionally-beer Drug Use: No Sexually Active: Yes -- Male partner(s) Other Topics Concern Not on file Social History Narrative Marital Status: MarriedChildren: 3Patient never smokedPassive smoke exposure-NoAlcohol Use : NoDrug Use-NoRegular Exercise-YesHIV/high Risk-No Review of Systems Constitutional: Positive for unexpected weight change. Negative for appetite change. Respiratory: Positive for shortness of breath. Cardiovascular: Negative. Gastrointestinal: Positive for abdominal pain. Genitourinary: Negative. Musculoskeletal: Positive for arthralgias. Neurological: Negative. Hematological: Negative. Psychiatric/Behavioral: Negative. Objective: Physical Exam Constitutional: She is oriented to person, place, and time. She appears well-developed and well-nourished. HENT: Head: Normocephalic and atraumatic. Eyes: Pupils are equal, round, and reactive to light. Cardiovascular: Normal rate and regular rhythm. Pulmonary/Chest: Effort normal and breath sounds normal. No respiratory distress. She has n o wheezes. She has no rales. She exhibits no tenderness. Abdominal: Soft. Bowel sounds are normal. She exhibits no distension and no mass. There is no tenderness. There is no rebound and no guarding. Obese protuberant abdomen. Neurological: She is alert and oriented to person, place, and time. Skin: Skin is warm and dry. Psychiatric: She has a normal mood and affect. Assessment: See dictation Plan: See dictation Amanda, Juan M Portillo MD - 08/27/2013 12:00 AM [facility] [address] [place] [address] FAX: [phone] OFFICE VISIT REFERRED BY: Jet Chaney MD HISTORY OF PRESENT ILLNESS: The patient is a 33-year-old female with a 3 month history of fluctuating epigastric pain. Omeprazole provided minimal benefit. Eating does not change the pain. Sometimes she will develop some nausea after eating. She denies dysphagia, reflux s ymptoms. Also, she has some right-sided abdominal pain occasionally. She has no history of peptic ulcer disease and in September of this year she had an abdominal ultrasound because of right upper quadrant pain and elevated liver tests, which showed a fatty liver. She is stat us post cholecystectomy. Pancreas and kidneys were normal. The epigastric pain was not pres ent at that time. Bowel movements tend towards constipation. This problem predated the abdo ivonne pain symptoms. She has a bowel movement about every 2 days. Denies any blood with her bowel movements. Her appetite is normal. She is frustrated with increasing weight over the past 2 years. She knows of no reason why the pain started. ASSESSMENT 1. EPIGASTRIC PAIN. 2. EPISODIC RIGHT UPPER QUADRANT PAIN. PLAN: With the location of the pain and her age, this would suggest acid peptic type pain. However, she has not responded to omeprazole. She does take ibuprofen for musculoskeletal pain, so she may have an NSAID related gastritis, but you would expect this to improve on [facility] omeprazole. To further evaluate her situation, upper endoscopy with biopsy is recommended . The indications, alternatives, risks and benefits of the procedure were discussed with [facility] patient, who agrees to proceed. This will sort out whether she has gastritis, ulcer or ot her abnormality along the esophagus, gastric or duodenal mucosa. Juan M Bailey M.D. CELE / STEF JOB #: [id number] signed by Juan M Bailey MD at 08/29/2013 10:26 AM PSTdocume nted in this encounter Miscellaneous Notes Addendum Note - Susan Sanchez RN - 08/27/2013 5:42 PM PST Addended by: SUSAN SANCHEZ on: 08/27/2013 17:42 Modules accepted: [facility] iscellaneous [facility] - 08/27/2013 12:00 AM PSTElectronically signed by Alberto Dial at 1:16 PM PSTdocumented in this encounter Plan of Treatment + + +--------+ + + | Name | Type | Priori | Associated Diagnoses | Order Schedule | | | | ty | | | + + +--------+ + + | Ambulatory referral | Outpatient | Routin | Epigastric | Expected: | | to Gastroenterology | Referral | e | abdominal pain | 09/17/2013, Expires: | | | | | | 08/27/2014 | + + +--------+ + + documented as of this encounter Visit Diagnoses + + | Diagnosis | + + | Epigastric abdominal pain - Primary Abdominal pain, epigastric | + + documented in this encounter
--- OUTSIDE RECORDS SUMMARY | ~2020-05-24 | XMS | Encounter Summary ---
Demographics + + + | Address | [facility] | | | [place] [address] | + + + | Home Phone | | + + + | Preferred Language | Unknown | + + + | Marital Status | Single | + + + | Yazidism Affiliation | 1041 | + + + | Race | Unknown | + + + | Ethnic Group | or | + + + Author + + + | Author | [facility] | | | and [place] | + + + | Organization | [facility] | | [...] [place], [place] | | | | | [address] | | + + + + + | Amy Schneider | ECON | [address] | | | | | [place], [place] | | | | | [address] | | + + + + + | Alisha Schneider | ECON | Unknown | | + + + + + Care Team Providers + +------+ + | Care Char Filter Tank Tender Head Name | Role | Phone | + +------+ + | Jet Chaney MD | PCP | | + +------+ + Reason for Referral Physical Medicine (Routine) +--------+ + + + + + | Status | Reason | Specialty | Diagnoses / | Referred By | Referred To | | | | | Procedures | Contact | Contact | +--------+ + + + + + | Denied | Specialty | Physical | Diagnoses | Ritu | [facility] | | | Services | Therapy | Cervical | Jet Dempsey MD | Pt Acute | | | Required | | strain | [address] | [address] | | | | | | [address] [place] | [place], | | | | | | [place] | [place] | | | | | | [address] | [address] | | | | | | Phone: | Phone: | | | | | | [phone] | [phone] | | | | | | Fax: | Fax: | | | | | | [phone] | [phone] | +--------+ + + + + + Reason for Visit + + + | Reason | Comments | + + + | Neck Pain | left side of neck | + + + | Medication Refill | | + + + Encounter Details +--------+---------+ + + + | Date | Type | Department | Care Team | Description | +--------+---------+ + + + | 06/02/ | Office | [facility] | Jet Chaney, | Cervical strain | | 2012 | Visit | [facility] [place] | [address] | (Primary Dx); | | | | [address] | [place], [place] | Abdominal pain; | | | | [place], [place] | [address] | Elevated liver | | | | [address] | | enzymes; | | | | [phone] | | Hypothyroidism | +--------+---------+ + + + Social History [...] + | Blood Pressure | 120/80 | 06/02/2013 4:01 PM | | | | | PDT | | + + + + + | Pulse | 76 | 06/02/2013 4:01 PM | | | | | PDT | | + + + + + | Temperature | 37.2 C (98.9 F) | 06/02/2013 4:01 PM | | | | | PDT | | + + + + + | Respiratory Rate | 16 | 06/02/2013 4:01 PM | | | | | PDT | | + + + + + | Oxygen Saturation | 98% | 06/02/2013 4:01 PM | | | | | PDT | | + + + + + | Inhaled Oxygen | - | - | | | Concentration | | | | + + + + + | Weight | 98 kg (216 lb) | 06/02/2013 4:01 PM | | | | | PDT | | + + + + + | Height | 160 cm (5' 3") | 06/02/2013 4:01 PM | | | | | PDT | | + + + + + | Body Mass Index | 38.26 | 06/02/2013 4:01 PM | | | | | PDT | | + + + + + documented in this encounter Patient Instructions Patient Instructions Jet Chaney MD - 06/02/2013 5:00 PM PDT BP 120/80 | Pulse 76 | Temp 37.2 C (98.9 F) (Temporal) | Resp 16 | Ht 1.6 m (5' 3") | W t 97.977 kg (216 lb) | BMI 38.26 kg/m2 | SpO2 98% | LMP 05/26/2013 | ? No Please have labs today Please due physical therapy. If you do not hear from them within 1 week please call my off ice Neck Pain There are several possible causes of neck pain without injury: You can get a minor ligament sprain or muscle strain from a sudden minor neck movement. Sleeping with your neck in an awkward position can also cause this. Some persons respond to emotional stress by tensing the muscles of their neck, shoulders and upper back. Chronic spasm in these muscles can cause neck pain and sometimes headaches. Gradual wear and tear of the joints in the spine can cause degenerative arthrit is. This can be a source of occasional or chronic neck pain. With aging or repeated small injuries to the neck, the spinal disks (the cushions betwee n each spinal bone) may bulge and put pressure on a nearby spinal nerve. This causes tinglin g, pain or numbness spreading from the neck to the shoulder, arm or hand on one side. Acute neck pain usually gets better in one to two weeks. Neck pain related to disk disease, arthritis in the spinal joints or spinal stenosis (narrowing of the spinal canal) can becom e chronic and last for months or years. Unless you had a forceful physical injury (for example, a car accident or fall), X-rays are usually not ordered for the initial evaluation of neck pain. If pain continues and does not respond to medical treatment, x-rays and other tests may be performed at a later time. Home Care: Rest and relax the muscles. Use a comfortable pillow that supports the head and keeps th e spine in a neutral position. The position of the head should not be tilted forward or back bearden. A rolled up towel may help for a custom fit. Some persons find relief with heat (hot shower, hot bath or heating pad) and massage, wh ile others prefer cold packs (crushed or cubed ice in a plastic bag, wrapped in a towel) . T ry both and use the method that feels best for 20 minutes several times a day. You may use acetaminophen (Tylenol) or ibuprofen (Motrin, Advil) to control pain, unless another medicine was prescribed. [ NOTE : If you have chronic liver or kidney disease or ev er had a stomach ulcer or GI bleeding, talk with your doctor before using these medicines.] Follow Up with your physician or this facility if your symptoms do not show signs of improvement afte r one week. Physical therapy or further tests may be needed. [NOTE: A radiologist will review any X-rays or CT scans that were taken. We will notify you of any new findings that may affect your care.] Get Prompt Medical Attention if any of the following occur: Pain becomes worse or spreads into one or both arms Weakness or numbness in one or both arms Increasing headache Neck swelling, difficulty or painful swallowing Fever of 100.4F (38C) or higher, or as directed by your healthcare provider [phone] [facility], [address] [place] [address], [place] [address]. All rights reserve d. This information is [...] foods again, start with small amounts of quix-yr-rhzqya, low-fat foods, such as applesauce, toast, or [...] down. Elevate the head of your bed. [id number] [facility], [address] [place] [address], [place] [address]. All rights reserve d. This information is not intended as a substitute for professional medical care. Always fo llow your healthcare professional's instructions. documented in this encounter Progress Notes Jet Chaney MD - 06/02/2013 4:42 PM PDTFormatting of this note might be different fr om the original. Subjective: Patient ID: Pavtihra Schneider is a 32 y.o. female here for left sided neck pain and abdominal p ain and medication refills. HPI For the past 3 months she has had intermittent left sided neck pain. It has been constant for several weeks. Described as "stiff" with occasional radiation to left shoulder. Also o ccasionally associated with left sided facial numbness. She was evaluated in the ED (she do es not know which) in February and diagnosed with neck strain. She was treated with muscle rela xants which made her tired but didn't help with pain. No facial pain. No arm weakness or p aresthesias. No bowel/bladder dysfunction. No fever, NS, vomiting. I saw her in September for RUQ pain. It resolved until 1 month ago. She now describes upper abdominal pain which radiates to her left side. Pain comes and goes randomly and described as "not a cramp." At worst rates 10/10. Feels similar to her gallbladder pain. It lasts for up to 5 minutes and then resolves spontaneously or with drinking water. Pain is unrelat ed to eating (last time we saw each other it was). She is not taking an antacid. She frequ ently has constipation. No fever, N/V, diarrhea, cough, CP, dysuria, hematuria. Patient's medications, allergies, past medical, surgical, social and family histories were reviewed and updated as appropriate. Review of Systems See HPI BP 120/80 | Pulse 76 | Temp 37.2 C (98.9 F) (Temporal) | Resp 16 | Ht 1.6 m (5' 3") | W t 97.977 kg (216 lb) | BMI 38.26 kg/m2 | SpO2 98% | LMP 05/26/2013 | ? No Objective: Physical Exam Constitutional: She appears well-developed and well-nourished. No distress. Neck: Normal range of motion. Neck supple. No thyromegaly present. Left trapezius mildly tender Cardiovascular: Normal rate, normal heart sounds and intact distal pulses. [...] UE's Lymphadenopathy: She has no cervical adenopathy. Neurological: Spurling negative Biceps, brachioradialis 2+ symmetric Hospital Outpatient Visit on 06/02/2013 Component Date Value Range Status GLUCOSE 06/02/2013 99 70 - 109 mg/dL Final CALCIUM 06/02/2013 9.2 8.3 - 10.5 mg/dL Final ALK PHOS 06/02/2013 63 40 - 110 IU/L Final AST 06/02/2013 22 10 - 42 IU/L Final ALT 06/02/2013 39 6 - 45 IU/L Final BILIRUBIN TOTAL 06/02/2013 0.6 0.2 - 1.0 mg/dL Final TOTAL PROTEIN 06/02/2013 7.1 6.0 - 7.8 gm/dL Final [...] 5.60 uIU/mL Final Testing performed on the copygram Access Analyzer. LIPASE 06/02/2013 27 0 - 60 U/L Final Assessment: Pavithra was seen today for neck pain and medication refill. Diagnoses and associated orders for this visit: Cervical strain: No radicular symptoms. - Ambulatory referral to Physical Therapy - XR Cervical Spine 3 Vws or Less; Future Abdominal pain: Nontender abdominal exam today. Reassuring RUQ US previously. LFT's, lip ase wnl. Possibly gastritis. - Celiac Panel, IgA and IgG; Future - omeprazole (PRILOSEC) 20 mg capsule; Take 1 capsule by mouth Daily. - Consider imaging or GI referral if pain returns. Elevated liver enzymes: Resolved. Await hep panel - Comprehensive Metabolic Panel; Future - CBC with Differential; Future - Hepatitis Panel, Chronic; Future Hypothyroidism: Slightly low TSH - Repeat TSH; Future in 6 weeks - Continue levothyroxine (SYNTHROID, LEVOTHROID) 75 MCG tablet; Take 1 tablet by mouth Asya y. For low thyroid 26 minutes were spent face to face with patient. Over 50% spent on counseling regarding ne ck and abdominal pain and the red flag symptoms. Prashanth Chaney MD mily Encinas - 0 06/02/2013 4:04 PM PDTPatient is here for neck pain on left side for 3 months abdominal left side pain documented in this encounter Plan of Treatment + + +--------+ + + | Name | Type | Priori | Associated Diagnoses | Order Schedule | | | | ty | | | + + +--------+ + + | Ambulatory referral | Outpatient | Routin | Cervical strain | Ordered: 06/02/2013 | | to Physical Therapy | Referral | e | | | + + +--------+ + + documented as of this encounter Results XR Cervical Spine 3 Vws or Less (06/03/2013 10:09 AM PDT) + + | Specimen | + + | | + + + + + | Narrative | Performed At | + + + | [facility] | [place] | | Department [address] [place] | [facility] | | [ rep [address]] [ rep [facility] | | st zip] Signed | - IMAGING | | | | | Patient Name: PAVITHRA SCHNEIDER Physician: | | | STOD. : 1980 Age: 32 Sex: F Unit #: [id number] | | | Exam Date: 06/02/13 Location: [facility] | | | Report #: [id number] Page: | | | %(RAD)RES..mtdd.print.filter("pg") of %(RAD) | | | RES..mtdd.print.filter("tpg") | | | | | | Accession Number: [id number] | | | X-RAY CERVICAL SPINE, THREE [...] Transcribed Date/Time: 06/03/2013 | | | 11:11 Band Singer: VENESSA <<Signature | | | on File>> | | | Andrea | | | Gallo Elaine MD06/04/13 0820 <Electronically signed by Andrea Holder | | | Chele FISCHER> Andrea Elaine MD 06/03/13 1009 | | | Band Singer: [employer] Well[employer] Tpoxlivorevrx00/18/13 1111 | | | Jet Chaney MD | | + + + + + + + + | Performing | Address | City/State/Zipcode | Phone Number | | Organization | | | | + + + + + | [facility] | [address] | [place] | [phone] | | [facility] | | [address] | | | - IMAGING | | [...] | | | AB | | | [facility] | | [...] Ab | Testing Performed: [place], | | [facility] | | | | [address], | | MEDICAL | | | | [place] [id number]: | | CENTER - | | | | [id number] | | LABORATORY | | + + [...] [place], | | | | | | [place] [address] | | | | | | CLIA:[id number] | | | | + + + + + + + + | Specimen | + + | Blood specimen | | (specimen) | + + + + + + + | Performing | Address | City/State/Zipcode | Phone Number | | Organization | | | | + + + + + | [facility] | [address] | [place] | [phone] | | [facility] | | [address] | | | - LABORATORY | | | | + + + + + | [facility] | [address] | [place] | | | [facility] | | [id number] [place] [address] | | | - LABORATORY | | [...] + | [facility] | [address] | [place] | [phone] | | [facility] | | [address] | | | - LABORATORY | | | | + + + + + | [facility] | [address] | [place], [place] | | | [facility] | | [address], [facility] | | | - LABORATORY | | | | + + + + + TSH (06/02/2013 5:27 PM PDT) + + + + + + | Component | Value | Ref Range | Performed | Pathologist | | | | | At | Signature | + + + + + + | TSH | 0.33 (L)Comment: Testing | 0.34 - 5.60 | [facility] | | | | performed on the | uIU/mL | [facility] | | | | [facility] [place] [facility] | | MEDICAL | | | | Analyzer. | | CENTER - | | | | | | LABORATORY | | + + + + + + + + | Specimen | + + | Blood specimen | | (specimen) | + + + + + + + | Performing | Address | City/[facility]/Zipcode | Phone Number | | Organization | | | | + + + + + | [facility] | [address] | [place] | [phone] | | [facility] | | [address] | | | - LABORATORY | | | | + + + + + | [facility] | [address] | [place] | | | [facility] | | [id number] | | | - LABORATORY [...] | | | Cells | | | [facility] | | | | | | MEDICAL | | | | | | CENTER - | | | | | | LABORATORY | | + + + + + + | Red Blood | 4.72 | 3.70 - 5.20 | [facility] | | | Cells | | M/uL | [facility] | | | | [...] + | [facility] | [address] | [place] | [phone] | | [facility] | | [address] | | | - LABORATORY | | | | + + + + + | [facility] | [address] | [place] | | | [facility] | | [address], [facility] | | | - LABORATORY | [...] 99 | 70 - 109 mg/dL | [facility] | | | | [...] 12 | 7 - 18 mg/dL | [facility] | | | | | | [facility] | | | | | | MEDICAL | | | | | | CENTER - | | | | | | LABORATORY | | + + + + + + | Creatinine | 0.68 | 0.60 - 1.30 | [facility] | | | | | mg/dL | [facility] | | | | | | MEDICAL | | | | | | CENTER - | | | | | | LABORATORY | | + + + + + + | Estimated | >60Comment: For | >60 mL/min/A | [facility] | | | GFR | -Americans, | [...] + | [facility] | [address] | [place], [place] | [phone] | | [facility] | | [address] | | | - LABORATORY | | | | + + + + + | [facility] | [address] | [place], [place] | | | [facility] | | [id number] | | | - LABORATORY [...] hypothyroidism | + + documented in this encounter
--- OUTSIDE RECORDS SUMMARY | ~2020-05-24 | XMS | Encounter Summary ---
Demographics + + + | Address | [facility] | | | [place] [address] | + + + | Home Phone [...] | Organization | [facility] [...] [place], [place] | | | | | [address] | | + + + + + | Amy Schneider | ECON | [address] | | | | | [place], [place] | | | | | [address] | | + + + + + | Alisha Schneider | ECON | Unknown | | + + + + + Care Team Providers + +------+ + | Care Professional Tutor Name | Role | Phone | + +------+ + | Jet Chaney MD | PCP | | + +------+ + Reason for Visit + + + | Reason | Comments | + + + | Facial Numbness | | + + + Encounter Details +--------+ + + + + | Date | Type | Department | Care Team | Description | +--------+ + + + + | 06/16/ | Emergency | [facility] | Silvio Lino MD | Serra's palsy | | 2017 | | [facility] | [address] | (Primary Dx) | | | | CENTER [address] | [place] | | | | | [place] | [address] | | | | | [address] | | | | | | [phone] | | | +--------+ + + + [...] + + + | Blood Pressure | 135/58 | 06/16/2017 2:07 PM | | | | | PDT | | + + + + + | Pulse | 84 | 06/16/2017 2:07 PM | | | | | PDT | | + + + + + | Temperature | 36.7 C (98 F) | 06/16/2017 2:07 PM | | | | | PDT | | + + + + + | Respiratory Rate | 16 | 06/16/2017 2:07 PM | | | | | PDT | | + + + + + | Oxygen Saturation | 98% | 06/16/2017 2:07 PM | | | | | PDT | | + + + + + | Inhaled Oxygen | - | - | | | Concentration | | | | + + + + + | Weight | 96.6 kg (213 lb) | 06/16/2017 2:07 PM | | | | | PDT | | + + + + + | Height | 157.5 cm (5' 2") | 06/16/2017 2:07 PM | | | | | PDT | | + + + + + | Body Mass Index | 38.96 | 06/16/2017 2:07 PM | | | | | PDT | | + + + + + documented in this encounter Discharge Instructions Instructions Silvio Lino MD - 06/16/2017Steroid as prescribed Antiviral as prescribed Return for worsening symptoms, other new complaints AttachmentsThe following attachments cannot be sent through Care Everywhere.Serra's Palsy (E gisselle)documented in this encounter Medications at Time of [...] + + + +---------+ + + | acyclovir | Take 1 tablet by | 21 | 0 | 06/16/20 | | | (ZOVIRAX) 400 MG | mouth 3 times daily | tablet | | 17 | 7 | | tablet | for 7 days. | | | [...] TAKE ONE TABLET BY | 90 | 3 | 11/05/19 | | | (SYNTHROID, | MOUTH ONE TIME DAILY | tablet | | 17 | 8 | | LEVOTHROID) 75 MCG | | [...] tablet by | 60 | 5 | 03/11/20 | | | 7.5 mg tablet | mouth 2 times daily. | tablet | | 17 | 8 | | | With food [...] + + + +---------+ + + | predniSONE | Take 3 tablets by | 21 | 0 | 06/16/20 | | | (DELTASONE) 20 mg | mouth Daily for 7 | tablet | | 17 | 7 | | tablet | days. | | | | | + + + +---------+ + + | UNABLE TO FIND | 20 g. Med Name: | | 0 | | | | | Protein | | | | 8 | + + + +---------+ + + documented as of this encounter ED Notes Silvio Lino MD - 06/16/2017 2:23 PM PDT Emergency Department Encounter NotE CHIEF COMPLAINT Facial numbness HPI Baudilio Schneider is a 36 y.o. female who presents to the Emergency Department with left facial numbness is been ongoing for a couple of days. She feels like she has trouble eating. Sep tra by moving the left side of her mouth. She's had some irritation of the left eye and gareth e trouble blinking on that side. She's not had other weakness. She's not had other paresth esias. Denies recent injury. She's also complaining of a headache. She's not noted a rash . She's not had fever. She's not had previous episodes like this before. PAST MEDICAL & SURGICAL HISTORY Past Medical History: Diagnosis Date Allergy Cervical radicular pain Chest wall pain Chronic abdominal pain Chronic midline low back pain without sciatica Depression Dysplasia of cervix, low grade (CHRISTIAN 1) 08/15/201203/27: Colposcopy 2:00 position showed CHRISTIAN 1 Gallbladder disease GERD (gastroesophageal reflux disease) Hand numbness Hurts daily Hypothyroid Insomnia Lower back pain Obesity Prediabetes Seasonal allergies Stress Thyroid disorder Tobacco abuse 02/23/2014 Vitamin D deficiency Past Surgical History: Procedure Laterality Date CHOLECYSTECTOMY 2000 ENDOSCOPY 09/21/13 negative for h.pylori,negative for atypia repeat in 3 years. TONSILLECTOMY 2009 UPPER GASTROINTESTINAL ENDOSCOPY N/A 08/28/2016 Procedure: EGD; Surgeon: Hill [place] MD; Location: [facility] SOCIAL HISTORY Social History Social History Marital status: Single Spouse name: Luke Number of children: 5 Years of education: N/A Occupational History [employer] in [place] Social History Main Topics Smoking status: Current Some Day Smoker Years: 0.30 Smokeless tobacco: Never Used Comment: 2 cigs daily Alcohol use No Drug use: No Sexual activity: Yes Partners: Male Comment: Mirena IUD 09/2015 Other Topics Concern None Social History Narrative Marital Status: . 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 FISH OIL 1,000 MG CAPSULE Take 2,000 mg by mouth Daily. LEVONORGESTREL (MIRENA) 20 MCG/24HR IUD 1 Device by Intrauterine route once for 1 dose. LEVOTHYROXINE (SYNTHROID, LEVOTHROID) 75 MCG TABLET TAKE ONE TABLET BY MOUTH ONE TIME D AILY MELOXICAM (MOBIC) 7.5 MG TABLET Take 1 tablet by mouth 2 times daily. With food MULTIPLE VITAMINS-MINERALS (WOMENS ONE DAILY PO) Take 1 tablet by mouth Daily. OMEPRAZOLE (PRILOSEC) 20 MG CAPSULE Take 1 capsule by mouth every morning (before break fast). To help abdominal pain UNABLE TO FIND 20 g. Med Name: Protein ALLERGIES No Known Allergies REVIEW OF SYSTEMS As in history of present illness. A 10 system of review was otherwise negative. PHYSICAL EXAM VITAL SIGNS: (first vital signs):Temp: 36.7 C (98 F) Pulse: 84 Resp: 16 SpO2: 98 % BP: 135/58 General: Alert, appears anxious, non toxic HEENT: Normocephalic, atraumatic, OP clear, EOMI Neck: supple, full range of motion, no tracheal deviation Cardiovascular: Normal rate and rhythm, no murmurs, rubs or gallops Pulmonary: CTA bilateral, no wheeze/rhonci or resp distress Neurologic: Alert, she has some drooping of the left facial area, she has some decreased st rength of eye blinking on the left, she has decreased sensation to light touch in all facial nerve dermatomes, she does appear to have some continued eyebrow raise on the left, she has no other strength or sensation deficit on neuro exam Skin: warm and dry IMAGING STUDIES CT head without acute ASSESSMENT & ED COURSE Patient here with facial numbness. She does not meet all criteria for Serra's palsy but is very likely having progressive symptoms that we'll likely progress. She does have some faci al droop as well as some eye findings. Her for it is not entirely involved at this time. G iven her headache and incomplete findings we did do CT of the head there is reassuring. I d o not think she needs further advanced imaging at this time. We will go and start her on pr ednisone and acyclovir. DISPOSITION Discharge FINAL IMPRESSION Serra's palsy New Prescriptions ACYCLOVIR (ZOVIRAX) 400 MG TABLET Take 1 tablet by mouth 3 times daily for 7 days. PREDNISONE (DELTASONE) 20 MG TABLET Take 3 tablets by mouth Daily for 7 days. Silvio Lino MD 06/16/17 1508 cNeil, Sharlene Verma RN - 06/16/2017 2:05 PM PDTPt c/o LT side facial numbness gradual onset x2 days ago. Notices it most when eating/drinking. Pt c/o headache x1 week. documented in this encounter Plan of Treatment Not on filedocumented as of this encounter Procedures + +--------+ + + + | Procedure Name | Priori | Date/Time | Associated Diagnosis | Comments | | | ty | | | | + +--------+ + + + | CT HEAD WO CONTRAST | STAT | 06/16/2017 | | Results for this | | | | 2:29 PM | | procedure are in the | | | | PDT | | results section. | + +--------+ + + + documented in this encounter Results CT Head wo Contrast (06/16/2017 2:29 PM PDT) + + | Specimen | + + | | + + + + + | Narrative | Performed At | + + + | CT HEAD WITHOUT CONTRAST CLINICAL INFORMATION: Left sided | [facility] | | facial numbness with headache. COMPARISON: No comparisons | | | PROCEDURE: Axial images were obtained through the head without IV | | | contrast. Multiplanar reformations were obtained from the acquisition | | | data. At least one of the following CT dose optimization | | | techniques were used: Automated exposure control; Adjustment of mA | | | and/or kV according to patient size; Use of iterative reconstruction | | | technique. FINDINGS: Brain: No intracranial hemorrhage. No | | | midline shift or pathologic mass effect. No cerebral edema, mass | | | lesion, or evidence of acute infarct. Ventricles and extra-axial | | | fluid spaces: Normal. Paranasal sinuses and mastoid air cells: | | | Normal. Calvarium and extracranial soft tissues: Normal. | | | Orbits: Imaged portions of the orbits are normal. IMPRESSION- No | | | evidence of acute intracranial abnormality. A preliminary | | | report was sent by [employer] with no significant discrepancy. | | | Dictated and Signed by: Alejo Farrar MD Electronically | | | signed: 06/16/2017 6:35 PM | | + + + + + | Procedure Note | + + | Kranthi, Rad Results In - 06/16/2017 6:38 PM PDT | | CT HEAD WITHOUT CONTRAST | | | | CLINICAL INFORMATION: | | Left sided facial numbness with headache. | | | | COMPARISON: | | No comparisons | | | | PROCEDURE: | | Axial images were obtained through the head without IV contrast. | | Multiplanar reformations were obtained from the acquisition data. | | | | At least one of the following CT dose optimization techniques were | | used: Automated exposure control; Adjustment of mA and/or kV according | | to patient size; Use of iterative reconstruction technique. | | | | FINDINGS: | | Brain: No intracranial hemorrhage. No midline shift or pathologic mass | | effect. No cerebral edema, mass lesion, or evidence of acute infarct. | | | | Ventricles and extra-axial fluid spaces: Normal. | | | | Paranasal sinuses and mastoid air cells: Normal. | | | | Calvarium and extracranial soft tissues: Normal. | | | | Orbits: Imaged portions of the orbits are normal. | | | | IMPRESSION- | | No evidence of acute intracranial abnormality. | | | | | | A preliminary report was sent by [employer] with no significant | | discrepancy. | | | | Dictated and Signed by: Alejo Farrar MD | | Electronically signed: 06/16/2017 6:35 PM | + + + +---------+ + + | Performing | Address | City/State/Zipcode | Phone Number | | Organization | | | | + +---------+ + + | [facility] | | | | + +---------+ + + documented in this encounter Visit Diagnoses + + | Diagnosis | + + | Serra's palsy - Primary | + + documented in this encounter
--- OUTSIDE RECORDS SUMMARY | ~2020-05-24 | XMS | Encounter Summary ---
Demographics + + + | Address | [facility] | | | [place] [address] | + + + | Home Phone | | + + + | Preferred Language | Unknown | + + + | Marital Status | Single | + + + | Episcopalian Affiliation | 1041 | + + + | Race | Unknown | + + + | Ethnic Group | or | + + + Author + + + | Author | [facility] | | | and [place] | + + + | Organization | [facility] | | | and [...] [place], [place] | | | | | [address] | | + + + + + | Amy Schneider | ECON | [address] | | | | | [place], [place] | | | | | [address] | | + + + + + | Alisha Schneider | ECON | Unknown | | + + + + + Care Team Providers + +------+ + | Care Pad Making Machine Operator Name | Role | Phone | + +------+ + PCP | Unavailable | + +------+ + Encounter Details +--------+ + + + + | Date | Type | Department | Care Team | Description | +--------+ + + + + | 11/15/ | Hospital | [facility] | | | | 2003 - | Encounter | [facility] | | | | | | [facility] [address] | | | | 11/17/ | | [place], | | | | 2003 | | [place] [address] | | | | | | [phone] | | | +--------+ + + + [...]
--- OUTSIDE RECORDS SUMMARY | ~2020-05-24 | XMS | Encounter Summary ---
Demographics + + + | Address | [facility] | | | [place] [address] | + + + | Home Phone | | + + + | Preferred Language | Unknown | + + + | Marital Status | Single | + + + | Zoroastrian Affiliation | 1041 | + + + | Race | Unknown | + + + | Ethnic Group | or | + + + Author + + + | Author | [facility] | | | and [place] | + + + | Organization | [facility] [...] [place], [place] | | | | | [address] | | + + + + + | Amy Schneider | ECON | [address] | | | | | [place], [place] | | | | | [address] | | + + + + + | Alisha Schneider | ECON | Unknown | | + + + + + Care Team Providers + +------+ + | Care Hydroelectric Plant Structural Engineer Name | Role | Phone | + +------+ + | Jet Chaney MD | PCP | | + +------+ + Reason for Visit + +--------+ + | Reason | Onset | Comments | | | Date | | + +--------+ + | Medication Refill | 05/07/ | | | | 2015 | | + +--------+ + Encounter Details +--------+--------+ + + + | Date | Type | Department | Care Team | Description | +--------+--------+ + + + | 05/07/ | Refill | [facility] | Jet Chaney, | Medication Refill | | 2015 | | [facility] | [address] | | | | | [address] | [place] | | | | | [place] | [address] | | | | | [address] | | | | | | [phone] | | | +--------+--------+ + + + [...]
--- OUTSIDE RECORDS SUMMARY | ~2020-05-24 | XMS | Encounter Summary ---
Demographics + + + | Address | [address] | | | [place] [address] | + + + | Home Phone [...] + | Organization | [facility] | | | and [place] [...] [place], [place] | | | | | [address] | | + + + + + | Amy Schneider | ECON | [address] | | | | | [place], [place] | | | | | [address] | | + + + + + | Alisha Schneider | ECON | Unknown | | + + + + + Care Team Providers + +------+ + | Care Eclectic Doctor Name | Role | Phone | + +------+ + | Jet Chaney MD | PCP | | + +------+ + Encounter Details +--------+ + + + + | Date | Type | Department | Care Team | Description | +--------+ + + + + | 09/11/ | Hospital | [facility] | Jet Chaney, | Screening, lipid; | | 2012 - | Encounter | [facility] | MD Claudy MANN AVGallo | Epigastric pain; | | | | [address] [place] | [place], [place] | Screening for | | 09/13/ | | [place], [place] | [address] | diabetes mellitus; | | 2011 | | [address] | | Hypothyroidism | | | | [phone] | | | +--------+ + + + [...] + | LIPID PROFILE | Routin | 09/11/2012 | | Results for this | | | e | 9:24 AM | | procedure are in the | | | | PST | | results section. | + +--------+ + + + | TSH | Routin | 09/11/2012 | | Results for this | | | e | 9:24 AM | | procedure are in the | | | | PST | | results section. | + +--------+ + + + | HEMOGLOBIN A1C | Routin | 09/11/2012 | | Results for this | | | e | 9:24 AM | | procedure are in the | | | | PST | | results section. | + +--------+ + + + | COMPREHENSIVE | Routin | 09/11/2012 | | Results for this | | METABOLIC PANEL | e | 9:24 AM | | procedure are in the | | | | PST | | results section. | + +--------+ + + + | LIPID PROFILE | Routin | 09/11/2012 | Screening, lipid | Results for this | | | e | 9:21 AM | | procedure are in the | | | | PST | | results section. | + +--------+ + + + | TSH | Routin | 09/11/2012 | Hypothyroidism | Results for this | | | e | 9:21 AM | | procedure are in the | | | | PST | | results section. | + +--------+ + + + | HEMOGLOBIN A1C | Routin | 09/11/2012 | Screening for | Results for this | | | e | 9:21 AM | diabetes mellitus | procedure are in the | | | | PST | | results section. | + +--------+ + + + | COMPREHENSIVE | Routin | 09/11/2012 | Epigastric pain | Results for this | | METABOLIC PANEL | e | 9:21 AM | | procedure are in the | | | | PST | | results section. | + +--------+ + + + documented in this encounter Results TSH (09/11/2012 9:24 AM PST) + + + + + + | Component | Value | Ref Range | Performed | Pathologist | | | | | At | Signature | + + + + + + | TSH | 2.29Comment: Testing | 0.34 - 5.60 | [facility] [...] + | [facility] | [address] | [place] | [phone] | | [facility] | | [address] | | | - LABORATORY | | | | + + + + + | [facility] | [address] | [place], [place] | | | [facility] | | [id number] | | | - LABORATORY | | | | + + + + + Hemoglobin A1C (09/11/2012 9:24 AM PST) + +-------+ + + + | Component | Value | Ref Range | Performed | Pathologist | | | | | At | Signature | + +-------+ + + + | Hemoglobin | 5.4 | 4.3 - 5.8 % | [facility] | | | A1c | | | [facility] | | | | | | MEDICAL [...] + | [facility] | [address] | [place] | [phone] | | [facility] | | [address] | | | - LABORATORY | | | | + + + + + | [facility] | [address] | [place] | | | [facility] | | [address] | | | - LABORATORY | | | | + + + + + Lipid Profile (09/11/2012 9:24 AM PST) + + + + + + | Component | Value | Ref Range | Performed | Pathologist | | | | | At | Signature | + + + + + + | Triglycerid | 173 (H) | 35 - 160 mg/dL | [facility] | | | es | | | [facility] | | | | | | [facility] | | | | | | [facility] - | | | | | | LABORATORY | | + + + + + + | Cholesterol | 146 | 140 - 200 mg/dL | [facility] | | | | | | [facility] | | | | | | [facility] | | | | | | C[facility] - | | | | | | LABORATORY | | + + + + + + | HDL | 39 | 29 - 89 mg/dL | [facility] | | | | | | [facility] | | | | | | [facility]ICAL | | | | | | CENTER - | | | | | | LABORATORY | | + + + + + + | LDL, | 72 | <130 mg/dL | [facility] | | | Calculated | | | [facility] | | | | | | [facility]ICAL | | | | | | CENTER - | | | | | | LABORATORY | | + + + + + + | Chol/HDL | 3.7Comment: | | [facility] | | | Ratio [...] + | [facility] | [address] | [place] | [phone] | | [facility] | | [address] | | | - LABORATORY | | | | + + + + + | [facility] | [address] | [place], [place] | | | [facility] | | [id number] [place] [address] | | | - LABORATORY | | | | + + + + + Comprehensive Metabolic Panel (09/11/2012 9:24 AM PST) + + + + + + | Component | Value | Ref Range | Performed | Pathologist | | | | | At | Signature | + + + + + + | Glucose | 103 | 70 - 109 mg/dL | [facility] | | | | [facility] | | | | | | [facility]ICAL | | | | | | CENTER - | | | | | | LABORATORY | | + + + + + + | Calcium | 8.8 | 8.3 - 10.5 | [facility] | | | | | mg/dL | [facility] | | | | | | [facility]ICAL | | | | | | CENTER - | | | | | | LABORATORY | | + + + + + + | Alkaline | 66 | 40 - 110 IU/L | [facility] | | | Phosphatase | | | [facility] | | | | | | MEDICAL | | | | | | CENTER - | | | | | | LABORATORY | | + + + + + + | AST | 29 | 10 - 42 IU/L | [facility] | | | | | | [facility] | | | | | | [facility]ICAL | | | | | | CENTER - | | | | | | LABORATORY | | + + + + + + | ALT | 55 (H) | 6 - 45 IU/L | [...] + + + + | Total | 6.9 | 6.0 - 7.8 gm/dL | [facility] [...] 12 | 7 - 18 mg/dL | [facility] | | | | | | [facility] | | | | | | MEDICAL | | | | | | CENTER - | | | | | | LABORATORY | | + + + + + + | Creatinine | 0.54 (L) | 0.60 - 1.30 | [facility] [...] | | GFR | -Americans, | | EDE | | | | please multiply the [...] + + + + | BUN/Creatin | 22.2 (H) | 12 - 20 | [facility] | | | ine Ratio | | | [facility] | | | | | | MEDICAL | | | | | | CENTER - | | | | | | LABORATORY | | + + + + + + | Na | 133 (L) | 136 - 149 mEq/L | [facility] | | | | | | [facility] | | | | | | [facility]ICAL | | | | | | CENTER - | | | | | | LABORATORY | | + + + + + + | K | 4.0 | 3.5 - 5.1 mEq/l | [facility] | | | | | | [facility] | | | | | | [facility]ICAL | | | | | | CENTER - | | | | | | LABORATORY | | + + + + + + | Cl | 104 | 98 - 109 mEq/l | [facility] | | | | | | [facility] | | | | | | [facility]ICAL | | | | | | CENTER - | | | | | | LABORATORY | | + + + + + + | CO2 | 23 (L) | 24 - 31 mEq/L | [facility] | | | | | | [facility] | | | | | | MEDICAL | | | | | | CENTER - | | | | | | LABORATORY | | + + + + + + | Anion Gap | 10.0 | 6.0 - 17.0 | [facility] | [...] + | [facility] | [address] | [place], [place] | [phone] | | [facility] | | [address] | | | - LABORATORY | | | | + + + + + | [facility] | [address] | [place], [place] | | | [facility] | | [address], [facility] | | | - LABORATORY | | | | + + + + + TSH (09/11/2012 9:21 AM PST) + + + + + + | Component | Value | Ref Range | Performed | Pathologist | | | | | At | Signature | + + + + + + | TSH | 2.29Comment: Testing | 0.34 - 5.60 | [facility] | | | | performed on the Cathy | uIU/mL | [facility] | | | | [facility] | [...] + | [facility] | [address] | [place] | [phone] | | [facility] | | [address] | | | - LABORATORY | | | | + + + + + | [facility] | [address] | [place], [place] | | | [facility] | | [address] | | | - LABORATORY | | | | + + + + + Hemoglobin A1c (09/11/2012 9:21 AM PST) + +-------+ + + + | Component | Value | Ref Range | Performed | Pathologist | | | | | At | Signature | + +-------+ + + + | Hemoglobin | 5.4 | 4.3 - 5.8 % | [facility] | | | A1c | | | [facility] | | | | | | MEDICAL | | | | | | CENTER - | | | | | | LABORATORY | | + +-------+ + + + + + | Specimen | + + | Blood specimen | | (specimen) | + + + + + + + | Performing | Address | [facility]/Zipcode | Phone Number | | Organization | | | | + + + + + | [facility] | [address] | [place] | [phone] | | [facility] | | [address] | | | - LABORATORY | | | | + + + + + | [facility] | [address] | [place], [place] | | | [facility] | | [address] | | | - LABORATORY | | | | + + + + + Comprehensive metabolic panel (09/11/2012 9:21 AM PST) + + + + + + | Component | Value | Ref Range | Performed | Pathologist | | | | | At | Signature | + + + + + + | Glucose | 103 | 70 - 109 mg/dL | [facility] | | | | | | [facility] | | [facility] | | | MEDICAL | | | | | | CENTER - | | | | | | LABORATORY | | + + + + + + | Calcium | 8.8 | 8.3 - 10.5 | [facility] | | | | | mg/dL | [facility] | | | | | | MEDICAL | | | | | | CENTER - | | | | | | LABORATORY | | + + + + + + | Alkaline | 66 | 40 - 110 IU/L | [facility] | | | Phosphatase | | | [facility] | | | | | | MEDICAL | | | | | | CENTER - | | | | | | LABORATORY | | + + + + + + | AST | 29 | 10 - 42 IU/L | [facility] | | | | | | [facility] | | | | | | MEDICAL | | | | | | CENTER - | | | | | | LABORATORY | | + + + + + + | ALT | 55 (H) | 6 - 45 IU/L | [...] + + + + | Total | 6.9 | 6.0 - 7.8 gm/dL | [facility] [...] + + + + | Creatinine | 0.54 (L) | 0.60 - 1.30 | [facility] | | | | | mg/dL | [facility] | | | | | | MEDICAL [...] + + + + | BUN/Creatin | 22.2 (H) | 12 - 20 | [facility] | | | ine Ratio | | | [facility] | | | | | | MEDICAL | | | | | | CENTER - | | | | | | LABORATORY | | + + + + + + | Na | 133 (L) | 136 - 149 mEq/L | [facility] | | | | | | [facility] | | | | | | MEDICAL | | | | | | CENTER - | | | | | | LABORATORY | | + + + + + + | K | 4.0 | 3.5 - 5.1 mEq/l | [facility] | | | | | | [facility] | | | | | | MEDICAL | | | | | | CENTER - | | | | | | LABORATORY | | + + + + + + | Cl | 104 | 98 - 109 mEq/l | [facility] | | | | | | [facility] | | | | | | MEDICAL | | | | | | CENTER - | | | | | | LABORATORY | | + + + + + + | CO2 | 23 (L) | 24 - 31 mEq/L | [facility] | | | | | | [facility] | | | | | | MEDICAL | | | | | | CENTER - | | | | | | LABORATORY | | + + + + + + | Anion Gap | 10.0 | 6.0 - 17.0 | [facility] | [...] + | [facility] | [address] | [place] | [phone] | | [facility] | | [address] | | | - LABORATORY | | | | + + + + + | [facility] | [address] | [place], [place] | | | [facility] | | [address] | | | - LABORATORY | | | | + + + + + Lipid Profile (09/11/2012 9:21 AM PST) + + + + + + | Component | Value | Ref Range | Performed | Pathologist | | | | | At | Signature | + + + + + + | Triglycerid | 173 (H) | 35 - 160 mg/dL | [facility] | | | es | | | [facility] | | | | | | MEDICAL | | | | | | CENTER - | | | | | | LABORATORY | | + + + + + + | Cholesterol | 146 | 140 - 200 mg/dL | [facility] | | | | | | [facility] | | | | | | MEDICAL | | | | | | CENTER - | | | | | | LABORATORY | | + + + + + + | HDL | 39 | 29 - 89 mg/dL | [facility] | | | | | | [facility] | | | | | | MEDICAL | | | | | | CENTER - | | | | | | LABORATORY | | + + + + + + | LDL, | 72 | <130 mg/dL | [facility] | | | Calculated | | | [facility] | | | | | | MEDICAL | | | | | | CENTER - | | | | | | LABORATORY | | + + + + + + | Chol/HDL | 3.7Comment: | | [facility] | | | Ratio | | | [facility] | | | | | | MEDICAL | | | | -------RISK CATEGORY: | | CENTER - | | | | CHOL/HDL * T.CHOL * LDL | | LABORATORY | | | | CHOL * HDL CHOL | | | | | | | | | | | | RATIODESIRABLE: (M) | | | | | | 4.0-6.7 <200 | | | | | | <130 >50 | | | | | | (F) | | | | | | 3.7-4.2BORDERLINE:(M) | | | | | | 6.7-7.4 200-240 | | | | | | 130-160 <45 | | | | | | (F) | | | | | | 4.2-5.5HIGH RISK: (M) | | | | | [...] + | [facility] | [address] | [place], [place] | [phone] | | [facility] | | [address] | | | - LABORATORY | | | | + + + + + | [facility] | [address] | [place], [place] | | | [facility] | | [id number] [place] [address] | | | - LABORATORY | | | | + + + + + documented in this encounter Visit Diagnoses + + | Diagnosis | + + | Screening, lipid Screening for lipoid disorders | + + | Epigastric pain Abdominal pain, epigastric | + + | Screening for diabetes mellitus | + + | Hypothyroidism Unspecified hypothyroidism | + + documented in this encounter"
--- OUTSIDE RECORDS SUMMARY | ~2020-05-24 | XMS | Encounter Summary ---
Demographics + + + | Address | [facility] | | | [place] [address] | + + + | Home Phone [...] + | Organization | [facility] | | | and [...] [place], [place] | | | | | [address] | | + + + + + | Amy Schneider | ECON | [address] | | | | | [place], [place] | | | | | [address] | | + + + + + | Alisha Schneider | ECON | Unknown | | + + + + + Care Team Providers + +------+ + | Care Supervisor Travel Information Center Name | Role | Phone | + +------+ + | Jet Chaney MD | PCP | | + +------+ + Reason for Visit + + + | Reason | Comments | + + + | Follow-up | 1 month- back pain | + + + Encounter Details +--------+---------+ + + + | Date | Type | Department | Care Team | Description | +--------+---------+ + + + | 09/02/ | Office | [facility] | Jet Chaney, | Epigastric pain | | 2011 | Visit | [facility] [place] | [address] | (Primary Dx); Back | | | | [address] | [place], [place] | pain; Molluscum | | | | [place], [place] | [address] | contagiosum; | | | | [address] | | Screening for | | | | [phone] | | diabetes mellitus; | | | | | | Screening, lipid; | | | | | | Hypothyroidism; | | | | | | Constipation | +--------+---------+ + + + Social History [...] + + + | Blood Pressure | 90/62 | 09/02/2012 4:14 PM | | | | | PST | | + + + + + | Pulse | 72 | 09/02/2012 4:14 PM | | | | | PST | | + + + + + | Temperature | 36.1 C (96.9 F) | 09/02/2012 4:14 PM | | | | | PST | | + + + + + | Respiratory Rate | 16 | 09/02/2012 4:14 PM | | | | | PST | | + + + + + | Oxygen Saturation | - | - | | + + + + + | Inhaled Oxygen | - | - | | | Concentration | | | | + + + + + | Weight | 99 kg (218 lb 3.2 | 09/02/2012 4:14 PM | | | | oz) | PST | | + + + + + | Height | - | - | | + + + + + | Body Mass Index | 38.65 | 07/04/2012 10:29 AM | | | | | PDT | | + + + + + documented in this encounter Patient Instructions Patient Instructions Jet Chaney MD - 09/02/2012 4:49 PM PST Please stop by the lab for fasting bloodwork. Nothing to eat or drink for 8 hours other th an water. BP 90/62 | Pulse 72 | Temp(Src) 36.1 C (96.9 F) (Oral) | Resp 16 | Wt 98.975 kg (218 lb 3.2 oz) For your back pain - I strongly recommend physical therapy with a therapist. I also recomm end you increase exercise and focus on diet to lose weight. EXERCISES TO STRENGTHEN YOUR LOWER BACK Strong lower-back and abdominal muscles work together to support your spine. These exercise s will help strengthen the muscles of the lower back. It is important that you begin exercis ing slowly and increase levels gradually. Always begin any exercise program with stretching. If you feel pain while doing any of thes e exercises, stop and talk to your doctor about a more specific exercise program that suits your condition better. LOW BACK STRETCH Lie on your back with your knees bent and both feet on the ground. Slowly raise your left knee to your chest as you flatten your lower back against the f sky. Hold for 5 seconds. Relax and repeat the exercise with your right knee. Do 10 of these exercises for each leg. Repeat hugging both knees to your chest at the same time. BUILDING LOWER BACK STRENGTH 1. Kneeling Lumbar Extension: Begin on your hands and knees. Simultaneously raise and strai ghten your right arm and left leg until they are parallel to the ground. Hold for 2 seconds and come back slowly to a starting position. Repeat with left arm and right leg, alternating 10 times. 2. Prone Lumbar Extension: Lie face down, arms extended overhead, palms on the floor. Simul taneously raise your right arm and left leg as high as comfortably possible. Hold for 10 sec onds and slowly return to start. Repeat with left arm and right leg, alternating 10 times. G radually build up to 20 times. (Advanced: Repeat this exercise raising both arms and both le gs a few inches off the floor at the same time. Hold for 5 seconds and release.) 3. Pelvic Tilt: Lie on the floor on your back with your knees bent at 90 degrees. Your feet should be flat on the floor. Inhale, exhale, then slowly contract your abdominal muscles br inging your navel toward your spine. Let your pelvis rock back until your lower back is flat on the floor. Hold for 10 seconds while breathing smoothly. 4. Abdominal Crunch: Perform a Pelvic Tilt (above) flattening your lower back against the f syk. Holding the tension in your abdominal muscles, take another breath and raise your shou lder blades off the ground (this is not a full sit-up). Keep your head in line with your bod y (don t bend your neck forward). Hold for 2 seconds, then slowly lower. [id number] [place] [address]. All rights reserve d. This information is not intended as a substitute for professional medical care. Always fo llow your healthcare professional's instructions Back Exercises: Abdominal Lift The Abdominal Lift strengthens your lower abdominal muscles, helping you keep your pelvis a nd back stable. Lie on the floor with both knees bent. Put your feet flat on the floor and your arms by your sides. Tighten your abdominal muscles. Lift one bent knee and move it toward your upper body. Keep your abdominal muscles tight and your back flat on the floor. Hold for 10 seconds. Repeat 3 times. Then, [place] [address]. All rights reserve d. This information is not intended as a substitute for professional medical care. Always fo llow your healthcare professional's instructions. Back Exercises: Hip Lift To start, lie on your back with your knees bent and feet flat on the floor. Don t press y our neck or lower back to the floor. Breathe deeply. You should feel comfortable and relaxed in this position. Slowly raise your hips upward. Tighten your abdomen and buttocks. Be careful not to arch your back. Hold for 5 seconds. Lower your hips to the floor. Repeat 10 times. For your safety, check with your healthcare provider before [place] [address]. All rights reserve d. This information is not intended as a substitute for professional medical care. Always fo llow your healthcare professional's instructions. Back Exercises: Lower Back Rotation To start, lie on your back with your knees bent and feet flat on the floor. Don t press y our neck or lower back to the floor. Breathe deeply. You should feel comfortable and relaxed in this position. Drop both knees to one side. Turn your head to the other side. Keep your shoulders flat on the floor. Hold for 20 seconds. Slowly switch sides. Repeat 2 [place] [address]. All rights reserve d. This information is not intended as a substitute for professional medical care. Always fo llow your healthcare professional's instructions. Back Exercises: Back Release Do this exercise on your hands and knees. Keep your knees under your hips and your hands un zeferino your shoulders. Keep your spine in a neutral position (not arched or sagging). Be sure t o maintain your neck s natural curve. Relax your abdominal and buttocks muscles, lift your head, and let your back sag. Be brooke e to keep your weight evenly distributed. Don t sit back on your hips. Hold for 5 seconds. Return to starting position. Repeat 5 times. [id number] [facility], [address] [place] [address], [place] [address]. All rights reserve d. This information is [...] the store. Walk laps around the mall. [id number] Yany Agustin, [address] [place] [address], [place] [address]. All rights reserve d. This information is not intended as a substitute for professional medical care. Always fo llow your healthcare professional's instructions. documented in this encounter Progress Notes Jet Chaney MD - 09/02/2012 4:34 PM PSTFormatting of this note might be different fr om the original. Subjective: Patient ID: Baudilio Schneider is a 32 y.o. female. HPI Has intermittent epigastric burning pain for years. No radiation. Typically worse after e ating. Sometimes associated with nausea, not emesis. She also endorses periodic constipati on - hard and 3-4 days in between BM's (but this is sporadic). She has tried tums, peptobis mol and ibuprofen without relief. Chronic low back pain. See previous note. No change in symptoms since last visit. She guillen s not started PT due to schedule conflict. No bowel/bladder dysfunction, saddle paresthesia s, LE weakness, foot drop. Patient's medications, allergies, past medical, surgical, social and family histories were reviewed and updated as appropriate. Review of Systems Constitutional: Negative for fever and unexpected weight change. Respiratory: Negative for cough and shortness of breath. Gastrointestinal: Positive for nausea and constipation. Negative for vomiting and diarrhea. Genitourinary: Negative for dysuria. Musculoskeletal: See HPI Neurological: Negative for numbness. BP 90/62 | Pulse 72 | Temp(Src) 36.1 C (96.9 F) (Oral) | Resp 16 | Wt 98.975 kg (218 lb 3.2 oz) Objective: Physical Exam Constitutional: She is oriented [...] no guarding. Musculoskeletal: She exhibits no edema. Mild paravertebral lumbar tenderness Full strength in lower extremities at knees, ankles. Lymphadenopathy: She has no cervical adenopathy. Neurological: She is alert and oriented to person, place, and time. Patella and Achilles DTRs 1+ symmetric NEgative straight leg raise. Skin: She is not diaphoretic. Assessment: Epigastric pain: - ranitidine (ZANTAC) 150 mg tablet; Take 1 tablet by mouth 2 times daily. For upper stomac h pain. - Comprehensive metabolic panel; Future Back pain: No red flag symptoms - Strongly encouraged PT, exercise, and weight loss - NSAIDs prn Molluscum contagiosum: On face. They bother her. - Return for freezing. She did not want to do this prior to [place] photos. Screening for diabetes mellitus - Hemoglobin A1c; Future Screening, lipid - Lipid Profile; Future Hypothyroidism - TSH; Future Constipation - polyethylene glycol (MIRALAX) powder; Take 1 diluted capful by mouth Daily for 3 days. FU: 1 month Prashanth Chaney MD raiKemi go LP N - 09/02/2012 4:21 PM PSTPatient is here for a 1 month follow-up on her back pain. She al so would like to get some blood work ordered.Electronically signed by AMERICA Akhtar 09/02/2012 5:22 PM PSTdocumented in this encounter Plan of Treatment Not on filedocumented as of this encounter Results TSH (09/11/2012 9:21 AM PST) + + + + + + | Component | Value | Ref Range | Performed | Pathologist | | | | | At | Signature | + + + + + + | TSH | 2.29Comment: Testing | 0.34 - 5.60 | [facility] | | | | performed on the Cathy | uIU/mL | [facility] | | | | [facility] [...] + | [facility] | [address] | [place], [place] | [phone] | | [facility] | | [address] | | | - LABORATORY | | | | + + + + + | [facility] | [address] | [place], [place] | | | [facility] | | [id number] | | | - LABORATORY [...] | | A1c | | | [facility] | | | | | | MEDICAL | | | | | | CENTER - | | | | | | LABORATORY | | + +-------+ + + + + + | Specimen | + + | Blood specimen | | (specimen) | + + + + + + + | Performing | Address | City/[facility] | Phone Number | | Organization | | | | + + + + + | [facility] | [address] | [place], [place] | [phone] | | [facility] | | [address] | | | - LABORATORY | | | | + + + + + | [facility] | [address] | [place], [place] | | | [facility] | | [address], [facility] | | | - LABORATORY | [...] | 10.0 | 6.0 - 17.0 | [facility] | | | | | [...] [address] | [place] | [phone] | | [facility] | | [address] | | | - LABORATORY | | | | + + + + + | [facility] | [address] | [place], [place] | | | [facility] | | [address], [facility] | | | - LABORATORY | [...] 160 mg/dL | [facility] | | | es | | | [facility] | | [...] + | [facility] | [address] | [place] | [phone] | | [facility] | | [address] | | | - LABORATORY | | | | + + + + + | [facility] | [address] | [place], [place] | | | [facility] | | [address] [place] [address] | | | - LABORATORY | | | | + + + + + documented in this encounter Visit Diagnoses + + | Diagnosis | + + | Epigastric pain - Primary Abdominal pain, epigastric | + + | Back pain Backache, unspecified | + + | Molluscum contagiosum | + + | Screening for diabetes mellitus | + + | Screening, lipid Screening for lipoid disorders | + + | Hypothyroidism Unspecified hypothyroidism | + + | Constipation Unspecified constipation | + + documented in this encounter"
--- OUTSIDE RECORDS SUMMARY | ~2020-05-24 | XMS | Encounter Summary ---
Demographics + + + | Address | [facility] | | | [place] [address] | + + + | Home Phone | | + + + | Preferred Language | Unknown | + + + | Marital Status | Single | + + + | Mormon Affiliation | 1041 | + + + | Race | Unknown | + + + | Ethnic Group | or | + + + Author + + + | Author | [facility] | | | and [place] | + + + | Organization | [facility] | [...] [place], [place] | | | | | [address] | | + + + + + | Amy Schneider | ECON | [address] | | | | | [place], [place] | | | | | [address] | | + + + + + | Alisha Schneider | ECON | Unknown | | + + + + + Care Team Providers + +------+ + | Care Registered Art Therapist Name | Role | Phone | + +------+ + | Jet Chaney MD | PCP | | + +------+ + Reason for Visit +---------+--------+ + | Reason | Onset | Comments | | | Date | | +---------+--------+ + | Results | 07/17/ | | | | 2018 | | +---------+--------+ + Encounter Details +--------+ + + + + | Date | Type | Department | Care Team | Description | +--------+ + + + + | 07/17/ | Telephone | [facility] | Jet Chaney, | Results | | 2017 | | [facility] [place] | [address] | | | | | [address] | [place] | | | | | [place] | [address] | | | | | [address] | | | | | | [phone] | | | +--------+ + + + [...] this encounter Miscellaneous Notes Telephone Encounter - Baylee Li Medical Assistant - 07/17/2018 4:27 PM PDTSpok e to patient. Provided the information. Patient verbalized understandings. Has no questions or concerns at this time. elephone Encounter - Baylee Li Medical Assistant - 07/17 2:18 PM PDTTried reaching patient. No answer. Left message asking for a return call. e lephone Encounter - Roxana Lucio LPN - 07/17/2018 11:53 AM PDT----- Message from Jet Chaney MD sent at 07/17/2018 8:31 PDT ----- Will you please let Sochil know that her pelvic ultrasound is normal. Her ovarian cyst res olved. This is reassuring. Please let me know if she has any questions or concerns. Thanks, Prashanth Chaney MD documented in this encounter Plan of Treatment Not on filedocumented as of this encounter Visit Diagnoses Not on filedocumented in this encounter"
--- OUTSIDE RECORDS SUMMARY | ~2020-05-24 | XMS | Encounter Summary ---
Demographics + + + | Address | [facility] | | | [place] [address] | + + + | Home Phone | | + + + | Preferred Language | Unknown | + + + | Marital Status | Single | + + + | Catholic Affiliation | 1041 | + + + | Race | Unknown | + + + | Ethnic Group | or | + + + Author + + + | Author | [facility] | | | and [place] | + + + | Organization | [facility] | | | and [...] [place], [place] | | | | | [address] | | + + + + + | Amy Schneider | ECON | [address] | | | | | [place], [place] | | | | | [address] | | + + + + + | Alisha Schneider | ECON | Unknown | | + + + + + Care Team Providers + +------+ + | Care Bark Tanner Name | Role | Phone | + +------+ + | Jet Chaney MD | PCP | | + +------+ + Reason for Visit +--------+ + | Reason | Comments | +--------+ + | Wart | | +--------+ + Encounter Details +--------+---------+ + + + | Date | Type | Department | Care Team | Description | +--------+---------+ + + + | 06/11/ | Office | [facility] | Jet Chaney, | Cutaneous horn | | 2016 | Visit | [facility] | [address] | (Primary Dx) | | | | [address] | [place] | | | | | [place] | [address] | | | | | [address] | | | | | | [phone] | | | +--------+---------+ + + + [...] + + + | Blood Pressure | 120/86 | 06/11/2016 3:33 PM | | | | | PDT | | + + + + + | Pulse | 80 | 06/11/2016 3:33 PM | | | | | PDT | | + + + + + | Temperature | 36.7 C (98 F) | 06/11/2016 3:33 PM | | | | | PDT | | + + + + + | Respiratory Rate | 16 | 06/11/2016 3:33 PM | | | | | PDT | | + + + + + | Oxygen Saturation | 98% | 06/11/2016 3:33 PM | | | | | PDT | | + + + + + | Inhaled Oxygen | - | - | | | Concentration | | | | + + + + + | Weight | 90.7 kg (200 lb) | 06/11/2016 3:33 PM | | | | | PDT | | + + + + + | Height | 157.5 cm (5' 2") | 06/11/2016 3:33 PM | | | | | PDT | | + + + + + | Body Mass Index | 36.58 | 06/11/2016 3:33 PM | | | | | PDT | | + + + + + documented in this encounter Patient Instructions Patient Instructions Jet Chaney MD - 06/11/2016 3:51 PM PDTBP 120/86 mmHg | Pulse 8 0 | Temp(Src) 36.7 C (98 F) (Temporal) | Resp 16 | Ht 1.575 m (5' 2") | Wt 90.719 kg (20 0 lb) | BMI 36.57 kg/m2 | SpO2 98% Keep the wound covered for the next 24 hours. You can shower, but no soaking in baths, pool or hot tub for 2 weeks. documented in this encounter Progress Notes Jet Chaney MD - 06/11/2016 3:50 PM PDTShave Biopsy Procedure Note Pre-operative Diagnosis: Suspicious lesion, cutaneous horn with ~3 mm base. Post-operative Diagnosis: same Location:right side of neck Indication: change in appearance Anesthesia: Lidocaine 1% with epinephrine Procedure Details History of allergy to iodine: no Patient informed of the risks (including bleeding and infection) and benefits of the procedure and written informed consent obtained. The lesion and surrounding area were given a sterile prep using betadyne and draped in the usual sterile fashion. Local anesthesia obtained by injection 1.5 cc lidocaine with epineph rine. A dermablade was used to shave the lesion. Hemostasis achieved with silver nitrate. Antibiotic ointment and a sterile dressing applied. The specimen was sent for pathologic ex amination. The patient tolerated the procedure well. EBL: Minimal. Complications: None. Plan: 1. Instructed to keep the wound dry and covered for 24-48h and clean thereafter. 2. Warning signs of infection were reviewed. 3. Recommended that the patient use tylenol as needed for pain. Prashanth Chaney MD raikKemi LP N - 06/11/2016 3:33 PM PDTPatient is here for a wart removal on her neck.Electronically sig chemo by Kemi Williamson LPN at 06/12/2016 6:03 PM PDTdocumented in this encounter Plan of Treatment + + +--------+ + + | Name | Type | Priori | Associated Diagnoses | Order Schedule | | | | ty | | | + + +--------+ + + | Surgical Pathology | Pathology | Routin | Cutaneous horn | Ordered: 06/11/2016 | | Exam | and | e | | | | | Cytology | | | | + + +--------+ + + documented as of this encounter Procedures + +--------+ + + + | Procedure Name | Priori | Date/Time | Associated Diagnosis | Comments | | | ty | | | | + +--------+ + + + | SURGICAL PATHOLOGY | Routin | 06/11/2016 | | Results for this | | EXAM | e | 12:00 AM | | procedure are in the | | | | PDT | | results section. | + +--------+ + + + documented in this encounter Results Surgical Pathology Exam (06/11/2016 12:00 AM PDT) + + | Specimen | + + | | + + + + + | Narrative | Performed At | + + + | SPECIMEN(S): A NECK SPECIMEN SOURCE: A. 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 - | | | Negative for dysplasia and carcinoma. BES:[facility]:C2NR | | | MICROSCOPIC EXAMINATION: Histologic sections of all submitted blocks | | | are examined by light microscopy. These findings, together with the | | | gross examination, support the pathologic diagnosis. GROSS | | | DESCRIPTION: The specimen is labeled "Baudilio Schneider" and designated | | | "neck" on the requisition. Received in formalin are three cream to | | | ramsay-alonso colored excisions of skin. The first one measures 0.3 x 0.3 | | | cm. The second one measures 0.3 x 0.6 cm. The last one is hair | | | bearing; this one measures 0.4 x 0.6 cm. Depth is 0.6 cm. It appears | | | to be alonso in color on the base. The top part is cauliflower-like and | | | it is ramsay to cream colored. The other two are ramsay cream color. The | | | largest specimen will be inked in blue and bisected, all into (A1) | | | along with the other two fragments. yt:AGAPITO:gretchen PERFORMING | | | LABORATORY: Tissue processing and slide preparation were performed by | | | [facility], [address], [place] [address] | | | (Biostatistics Manager: Jorge Aldana M.D.; CLIA#: [id number]). | | | Professional interpretation was performed by [facility], [address], [place] [address] (Biostatistics Manager: Jorge | | | Tapan Aldana; CLIA#: [id number]). 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
--- OUTSIDE RECORDS SUMMARY | ~2020-05-24 | XMS | Encounter Summary ---
Demographics + + + | Address | [facility] | | | [place] [address] | + + + | Home Phone [...] | Organization | [facility] | [...] [place], [place] | | | | | [address] | | + + + + + | Amy Schneider | ECON | [address] | | | | | [place], [place] | | | | | [address] | | + + + + + | Alisha Schneider | ECON | Unknown | | + + + + + Care Team Providers + +------+ + | Care Digital Designer Name | Role | Phone | + +------+ + | Jet Chaney MD | PCP | | + +------+ + Encounter Details +--------+ + + + + | Date | Type | Department | Care Team | Description | +--------+ + + + + | 07/21/ | Episode | [facility] | Fif[facility] | | | 2018 | Changes | GASTROENTEROLOGY | [facility] [place] | | | | | [address] [facility] | | | | | | [address] [place] | | | | | | [address] | | | | | | [phone] | | | +--------+ + + + [...]
--- OUTSIDE RECORDS SUMMARY | ~2020-05-24 | XMS | Encounter Summary ---
Demographics + + + | Address | [facility] | | | [place] [address] | + + + | Home Phone [...] Author + + + | Author | [facility] | | | and [place] | + + + | Organization | [facility] | | [...] [place], [place] | | | | | [address] | | + + + + + | Amy Schneider | ECON | [address] | | | | | [place], [place] | | | | | [address] | | + + + + + | Alisha Schneider | ECON | Unknown | | + + + + + Care Team Providers + +------+ + | Care Radio Host Name | Role | Phone | + +------+ + | Jet Chaney MD | PCP | | + +------+ + Reason for Visit + +--------+ + | Reason | Onset | Comments | | | Date | | + +--------+ + | Care Gap | 02/08/ | diabetic retinopathy | | | 2019 | | + +--------+ + Encounter Details +--------+ + + + + | Date | Type | Department | Care Team | Description | +--------+ + + + + | 02/08/ | Telephone | [facility] | [place], Shikha A, | Care Gap (diabetic | | 2020 | | [facility] | PT [address] | retinopathy) | | | | [address] | [place] | | | | | [place] | [address] | | | | | [address] | | | | | | [phone] | | | +--------+ + + + [...] this encounter Miscellaneous Notes Telephone Encounter - Shikha Ha PT - 02/09/2020 4:53 PM PDTPatient has been identif ied by special care hospital care for monitoring for regular diabetic retinopathy scr eening. Patient's last diabetic retinopathy exam: November 2019 Patient's preferred frozen food department manager office: Moris Sage, Dr. Moshe Hernandez Current exam on record, no pt. Call neededElectronically signed by Shikha Ha PT at 4:54 PM PDTdocumented in this encounter Plan of Treatment Not on filedocumented as of this encounter Visit Diagnoses Not on filedocumented in this encounter"
--- OUTSIDE RECORDS SUMMARY | ~2020-05-24 | XMS | Encounter Summary ---
Demographics + + + | Address | [facility] | | | [place] [address] | + + + | Home Phone [...] | Organization | [facility] | | | and [place] | [...] [place], [place] | | | | | [address] | | + + + + + | Amy Schneider | ECON | [address] | | | | | [place], [place] | | | | | [address] | | + + + + + | Alisha Schneider | ECON | Unknown | | + + + + + Care Team Providers + +------+ + | Care Meter Mechanic Name | Role | Phone | + +------+ + | Jet Chaney MD | PCP | | + +------+ + Reason for Visit + +--------+ + | Reason | Onset | Comments | | | Date | | + +--------+ + | Letter for | 12/07/ | | | School/Work | 2017 | | + +--------+ + Encounter Details +--------+ + + + + | Date | Type | Department | Care Team | Description | +--------+ + + + + | 12/07/ | Telephone | [facility] | Jet Chaney, | Letter for | | 2016 | | [facility] [place] | [address] | School/Work | | | | [address] | [place] | | | | | [place] | [address] | | | | | [address] | | | | | | [phone] | | | +--------+ + + + [...] this encounter Miscellaneous Notes Telephone Encounter - Alessandra Mcmahan - 12/10/2016 11:26 AM PDTPatients pick ed up elephone [place] deb - Bell Nolan - 12/10/2016 8:56 AM PDTLeft message for patient to return our call. Letter in cabinet ready for pickup. elephone Encounter - Jet Chaney MD - 12/09/2016 1:06 PM PDTSigned and in folder to Front Office. Thanks! Prashanth Chaney MD elephone Encounter - Tamar Lugo RN - 12/07/2016 4:02 PM PDTPatient was in for an appointment yesterda y for back and neck pain. She needs a letter excusing her from work 12/06. She forgot to requ est this at her appointment. Patient can be reached at [phone] when letter is ready for pickling operator. Electronically sig chemo by Tamar Lugo RN at 12/07/2016 4:07 PM PDTdocumented in this encounter Plan of Treatment Not on filedocumented as of this encounter Visit Diagnoses Not on filedocumented in this encounter"
--- OUTSIDE RECORDS SUMMARY | ~2020-05-24 | XMS | Encounter Summary ---
Demographics + + + | Address | [facility] | | | [place] [address] | + + + | Home Phone [...] + | Organization | [facility] | [...] [place], [place] | | | | | [address] | | + + + + + | Amy Schneider | ECON | [address] | | | | | [place], [place] | | | | | [address] | | + + + + + | Alisha Schneider | ECON | Unknown | | + + + + + Care Team Providers + +------+ + | Care Director Of Reservations Name | Role | Phone | + +------+ + PCP | Unavailable | + +------+ + Encounter Details +--------+ + + + + | Date | Type | Department | Care Team | Description | +--------+ + + + + | 11/25/ | Hospital | [facility] | | | | 2002 - | Encounter | [facility] | | | | | | [facility] [address] | | | | 11/27/ | | [place], | | | | 2002 | | [place] [address] | | | | | | [phone] | | | +--------+ + + + [...]
--- OUTSIDE RECORDS SUMMARY | ~2020-05-24 | XMS | Encounter Summary ---
Demographics + + + | Address | [facility] | | | [place] [address] | + + + | Home Phone | | + + + | Preferred Language | Unknown | + + + | Marital Status | Single | + + + | Caodaism Affiliation | 1041 | + + + | Race | Unknown | + + + | Ethnic Group | or | + + + Author + + + | Author | [facility] | | | and [place] | + + + | Organization | [facility] | | | and [...] [place], [place] | | | | | [address] | | + + + + + | Amy Schneider | ECON | [address] | | | | | [place], [place] | | | | | [address] | | + + + + + | Alisha Schneider | ECON | Unknown | | + + + + + Care Team Providers + +------+ + | Care Fireworks Inspector Name | Role | Phone | + +------+ + | Jet Chaney MD | PCP | | + +------+ + Encounter Details +--------+ + + + + | Date | Type | Department | Care Team | Description | +--------+ + + + + | 09/11/ | Hospital | [facility] | Jet Chaney, | Impaired fasting | | 2016 | Encounter | [facility] | [address] | glucose; | | | | [address] [place] | [place], [place] | Hypothyroidism, | | | | [place], [place] | [address] | unspecified type | | | | [address] | | | | | | [phone] | | | +--------+ + + + [...] + + | TSH | Routin | 09/11/2016 | Hypothyroidism, | Results for this | | | e | 11:57 AM | unspecified type | procedure are in the | | | | PST | | results section. | + +--------+ + + + | HEMOGLOBIN A1C | Routin | 09/11/2016 | Impaired fasting | Results for this | | | e | 11:57 AM | glucose | procedure are in the | | | | PST | | results section. | + +--------+ + + + | COMPREHENSIVE | Routin | 09/11/2016 | Impaired fasting | Results for this | | METABOLIC PANEL | e | 11:57 AM | glucose | procedure are in the | | | | PST | | results section. | + +--------+ + + + documented in this encounter Results Hemoglobin A1C (09/11/2016 11:57 [...] + | [facility] | [address] | [place] | [phone] | | [facility] | | [address] | | | - LABORATORY | | [...] | samples are screened | uIU/mL | [facility] | | | | using a 2nd [...] [address] | [place] | [phone] | | [facility] | | [address] | | | - LABORATORY | | [...] 8 | 7 - 18 mg/dL | [facility] | | | | | | [facility] | | | | | | MEDICAL | | | | | | CENTER - | | | | | | LABORATORY | | + + + + + + | Creatinine | 0.57 (L) | 0.60 - 1.30 | [facility] | | | | | mg/dL | [facility] | | | | | | MEDICAL | | | | | | CENTER - | | | | | | LABORATORY | | + + + + + + | eGFR, | >60Comment: GLOMERULAR | >=60 | [facility] | | | non- | FILTRATION | mL/min/1.73m2 | [facility] | | | [place] | RATE,ESTIMATED | | MEDICAL | | | | mL/min/1.29j8Whjl than | | CENTER - | | [...] | + + + + + | [facility] | [address] | [place] | [phone] | | [facility] | | [address] | | | - LABORATORY | | | | + + + + + documented in this encounter Visit Diagnoses + + | Diagnosis | + + | Impaired fasting glucose | + + | Hypothyroidism, unspecified type | + + documented in this encounter"
--- OUTSIDE RECORDS SUMMARY | ~2020-05-24 | XMS | Encounter Summary ---
Demographics + + + | Address | [facility] | | | [place] [address] | + + + | Home Phone [...] + + + | Author | [facility] | | | and [place] | + + + | Organization | [facility] | [...] [place], [place] | | | | | [address] | | + + + + + | Amy Schneider | ECON | [address] | | | | | [place], [place] | | | | | [address] | | + + + + + | Alisha Schneider | ECON | Unknown | | + + + + + Care Team Providers + +------+ + | Care Signing Teacher Name | Role | Phone | [...] | | | | | | | ME | | | | | | | ESOPHAGOGAST | | | | | | | RODUODENOSCO | | | | | | | PY TRANSORAL | | | | | | | DIAGNOSTIC | | | | | | | ME EGD | | | | | | [...] Description | +--------+---------+ + + + | 08/05/ | Surgery | [facility] | Hill [place] MD | EGD | | 2018 | | [facility] | [address], [place] | | | | | [address] | [address] [place] | | | | | [place] | [address] | | | | | [address] | | | | | | [phone] | | | +--------+---------+ + + + [...] documented in this encounter Discharge Instructions Instructions Sobia Melendez RN - 08/05/2018, Sedacin de procedimiento (adulto) A usted le werner dado medicamentos intravenosos para sedarlo candie sharp procedimiento de hoy. Es probable que le hayan dado un medicamento contra el dolor y otro para dormir. La mayor p sepideh del efecto de estos medicamentos ya guillne desaparecido, kobi es posible que contine teni [...] Si no pueden despertarlo Date Last Reviewed: 03/11/201719997687-[address] [facility] [place] [address]. Todos lo s derechos reservados. Esta informacin [...] 140/80 we will proceed with upper endoscopyElectron ically signed by Hill [place] MD at 08/05/2018 [...] biopsied, pathology negative - Dr [place] at [facility] INTRAUTERINE DEVICE INSERTION 07/12/2015 Mirena - Dr Kaur at [facility] TONSILLECTOMY 11/01/2009 chronic tonsillitis, severely hypertrophic tonsils with upper airway obstruction - Dr Farhat thompson at [facility] UPPER GASTROINTESTINAL ENDOSCOPY N/A 08/28/2016 Procedure: EGD; Surgeon: Hill [place] MD; Location: [facility] MEDICAL PROCEDURE [facility] HOME MEDS: Prior to [...] %, not currently . General: Alert and [id number]: Normal Lungs: Clear Heart: Regular rate and [...] Electronically Signed by: Hill [place] MD 08/05/2018 [facility] Portions of this chart may have been created with [employer] voice recognition software. Occasi onal wrong-word or [...] Endoscopy Patient: Baudilio Schneider : 1980 Acct: [id number] Exam Date: Sunday, August 05, 2018 Doctor: [...] If unable to reach your physician, call [facility] Emergency Department at Ext. [phone] Your doctor [...] [address] | [place] | [phone] | | [facility] | | [address] | | | - LABORATORY | | | | + + + + + KAREN (08/05/2018 10:27 AM PST) + + | Specimen | + + | | + + + + -+ | Narrative | Performed At | + + -+ | | [facility] | | GastroenterologyPatient Name: Baudilio Backeddeyanira Date: 08/05/2018 | [facility] | | 10:27 AMMRN: [id number] #: [id number] of : | | | 1980Admit Type: AmbulatoryAge: 37Room: [place] [address]Gender: FemaleNote | | | Status: FinalizedAttending MD: Hill [place] , [facility]CALOOSArocedure: | | | Upper GI endoscopyIndications: Epigastric [...] the nurse | | | and the x ray electronics wiring technician in the endoscopy suite. Mental Status [...] AMScope Out: 10:47:18 AM | | | [facility], [address] [place] [address] | | | [address] | | | - Discharge patient to [...] |Scope Out: 10:47:18 AM | | | [facility], [address] [place] [address] | | | [address] | | + + -+ + +---------+ [...] 1.010, 1.015, | [facility] | | | [place], | | 1.020, 1.025 | [facility] | | | POC | | | CORE | | | | | | LABORATORY | | + + + + + + | Lot Number | [id number] | | [facility] | | | | [...] | + + + + + | [facility] | [address] [place] [address] NE | [place] [address] | [phone] | | [facility] | | | | | LABORATORY | [...] | | | Negative for glandular mucosa. JVR:[facility]:C2NR GROSS | | | DESCRIPTION: Two specimens [...] component was performed by | | | [employer], [address] [place] [id number] (Medical | | | Director: Bridget Wu MD; IA# [id number]). Professional | | | interpretation was performed by [facility] | | | [facility], [address] [place] [address] | | | [phone] (Financial Aid Advisor: Jorge Aldana M.D.). Diagnostician: | | | [...] Diagnoses Not on filedocumented in this encounter Administered Medications + +--------+ [...] injection PRN, Starting Tue | | 18 10:37 | | | | | 08/05/18 at 1037 | | AM PST | | | | + +-------+ +------+---+---+ + +---+ | | | + +---+ | ondansetron (ZOFRAN) injection | | | 4 mg 4 mg, Oral, EVERY 4 HOURS | | | PRN, Nausea, Vomiting, Starting | | | 08/05/18 at 1112, | | | Recovery/Phase I | | + +---+ | | | + +---+ documented in this encounter
--- OUTSIDE RECORDS SUMMARY | ~2020-05-24 | XMS | Encounter Summary ---
Demographics + + + | Address | [facility] | | | [place] [address] | + + + | Home Phone | | + + + | Preferred Language | Unknown | + + + | Marital Status | Single | + + + | Episcopal Affiliation | 1041 | + + + | Race | Unknown | + + + | Ethnic Group | or | + + + Author + + + | Author | [facility] | | | and [place] | + + + | Organization | [facility] | | | and [...] [place], [place] | | | | | [address] | | + + + + + | Amy Schneider | ECON | [address] | | | | | [place], [place] | | | | | [address] | | + + + + + | Alisha Schneider | ECON | Unknown | | + + + + + Care Team Providers + +------+ + | Care Woven Wood Shade Assembler Name | Role | Phone | + +------+ + | Jet Chaney MD | PCP | | + +------+ + Reason for Referral Evaluate & Treat (Routine) + + + + + + + | Status | Reason | Specialty | Diagnoses / | Referred By | Referred To | | | | | Procedures | Contact | Contact | + + + + + + + | Authorized | Specialty | Diabetes | Diagnoses | Ritu | Nancy | | | Services | Educator / | Controlled | Jet Dempsey MD | Diabetes | | | Required | Diabetes | type 2 | [address] | Education | | | | Services | diabetes | [address] [place] | [address] | | | | | mellitus | [place], [place] | [place], | | | | | with | [address] | [place] | | | | | microalbumin | Phone: | [address] | | | | | uria, | [phone] | Phone: | | | | | without | Fax: | [phone] | | | | | long-term | [phone] | Fax: | | | | | current use | | [phone] | | | | | of insulin | | | | | | | (HCC) | | | + + + + + + + Reason for Visit + + + | Reason | Comments | + + + | Follow-up | | + + + | Hypertension | | + + + | Diabetes | | + + + | Results | from august | + + + Encounter Details +--------+---------+ + + + | Date | Type | Department | Care Team | Description | +--------+---------+ + + + | 11/02/ | Office | [facility] | Jet Chaney, | Controlled type 2 | | 2020 | Visit | [facility] | [address] | diabetes mellitus | | | | [address] | [place] | with | | | | [place] | [address] | microalbuminuria, | | | | [address] | | without long-term | | | | [phone] | | current use of | | | | | | insulin (HCC) | | | | | | (Primary Dx); | | | | | | Essential | | | | | | hypertension | +--------+---------+ + + + Social History [...] + + + | Blood Pressure | 140/90 | 11/02/2019 4:54 PM | | | | | PST | | + + + + + | Pulse | 68 | 11/02/2019 4:05 PM | | | | | PST | | + + + + + | Temperature | 36.6 C (97.9 F) | 11/02/2019 4:05 PM | | | | | PST | | + + + + + | Respiratory Rate | 16 | 11/02/2019 4:05 PM | | | | | PST | | + + + + + | Oxygen Saturation | 100% | 11/02/2019 4:05 PM | | | | | PST | | + + + + + | Inhaled Oxygen | - | - | | | Concentration | | | | + + + + + | Weight | 95.8 kg (211 lb 3.2 | 11/02/2019 4:05 PM | | | | oz) | PST | | + + + + + | Height | - | - | | + + + + + | Body Mass Index | 38.63 | 05/28/2019 10:26 AM | | | | | PDT | | + + + + + documented in this encounter Patient Instructions Patient Instructions Jet Chaney MD - 11/02/2019 4:15 PM PSTStart the metformin as f ollows: - Take 1 pill (500 mg) every other day for 2 weeks. Then increase to: - Take 1 pill (500 mg) daily for 2 weeks. Then increase to: - Take 1 pill (500 mg) twice daily INCREASE the lisinopril to 20 mg per day. For now take 2 of your 10 mg pills daily. But f uture refills will be for 20 mg pills - so you will just have to take 1 pill per day. If you do not hear from the clinical document improvement educator's office by Saturday - please call our office. Aim for: - 7-8 hours of sleep per night - At least 30 minutes of continuous brisk activity 5 days per week - A diet lower in carbohydrates and processed foods, higher in vegetables and lean protein s. Visit the following websites for helpful tips and recipes for controlling diabetes: General tips: http://www.diabetes.org/fgbn-vxk-qddotky/food/xfsk-riy-v-eat/ Recipe ideas (including quick and budget friendly recipes): http://www.diabetes.org/mfa-re cipes/recipes/ Please stop by the lab for blood work the week of December 15. You do NOT have to fast. Lab Hours: Saturday-Saturday 7 am to 5:[address] [place] [address] Saturdays & Sundays 8 am to noon [facility] (you do not have to see a doctor, just tell them you are there for l abs) Diabetes: Exams and Tests For your diabetes care, you may see your primary care provider or a specialist 2 to 4 times a year. This page lists some of the regular exams and tests advised for people with diabete s. To learn more, contact the [place] [employer] (745-814-3439 or www.diabetes.or g). Tests and vaccines These should be done at least as often as stated below: Blood pressure check. Every healthcare provider visit. A1C. At first, every 3months. If controlled, then every 3 to 6 months. Cholesterol and blood lipid tests. At least [id number]. Urine tests for kidney function. [id number]. Flu shots. Once a year. Pneumonia shot. Ask your provider which pneumonia vaccines are right for you. Hepatitis B shots. As soon as possible if you re younger than 60. Or as advised by you r healthcare provider after age 60. Shingles vaccine. After age 60. Get the shot even if you have had shingles. Or if you guillen d a past shingles vaccine. Other tests or vaccines. As advised by your provider. Individualized medical nutrition therapy. At least once. Then as needed. Stop smoking counseling. If you still smoke, at each visit. Regular exams The following exams help keep you healthy. Foot exams Nerve and blood vessel problems can affect your feet first. Have your healthcare provider c heck your feet at every office visit. Take your shoes and socks off in the exam room. This w ill help remind you to get your feet checked. Also check your feet at home every day. Look f or pressure sores or injuries. Contact your provider if you see problems. Eye exams You can have problems with your eyes even if you don t have trouble seeing. An eye health care provider (wire splicer) or specially trained rn birthing will give you a dilated eye exam at least once a year. Tell your healthcare provider right away if you: See dark spots Don't see well in dim light Have eye pain or pressure Have any other problems Dental exams Gum disease (also called periodontal disease) and other mouth problems are common in people with diabetes. To help prevent these problems, see your dentist 2 or more times a year. Tel l your dentist that you have diabetes. Ask your healthcare provider what other exams you ll need on a regular basis. Date Last Reviewed: 08/16/201819997519-7882 [employer]. [address] [place] [address], [place] [address]. All righ ts reserved. This information is not intended as a substitute for professional medical care. Always follow your healthcare professional's instructions. documented in this encounter Progress Notes Jet Chaney MD - 11/02/2019 4:15 PM PSTFormatting of this note might be different fr om the original. Subjective: Patient ID: Baudilio Schneider is a 39 y.o. female who is here today for Follow-up; Hypertension ; Diabetes; and Results (from august) HPI She is taking lisinopril as prescribed. She stopped furosemide and losartan as directed. Occasionally she feels a little light headed, not severe. She has improved diet since we last met. She is limiting sugar in diet. Cut back on bread and tortillas to just once per day instead of 2-3 per day. She started walking for exercis e. She will walk up to 1 hour ~3 days per week. Occasionally her vision feels a little lizandro rry. No weight loss, polydipsia, polyuria, CP, orthopnea, edema. Patient's medications, allergies, past medical, surgical, social and family histories were obtained and reviewed as appropriate. Current Outpatient Medications on File Prior to Visit Medication Sig Dispense Refill B Complex Vitamins (VITAMIN B COMPLEX PO) Take by mouth. Cholecalciferol (VITAMIN D3) 5000 UNITS CAPS Take [...] by mouth every morning (before br eakfast). Multiple Vitamins-Minerals (WOMENS ONE DAILY PO) Take [...] 30 tablet 5 No current facility-administered medications on file prior to visit. Review of Systems Objective: BP 140/90 | Pulse 68 | Temp 36.6 C (97.9 F) (Temporal) | Resp 16 | Wt 95.8 kg (211 lb 3.2 oz) | SpO2 100% | BMI 38.63 kg/m Physical Exam Constitutional: Very pleasant, well developed, NAD Cardiovascular: Normal rate, regular rhythm, normal heart sounds and intact distal pulses. Exam reveals no gallop and no friction rub. No murmur heard. Pulmonary/Chest: Breath sounds normal. No respiratory distress. She has no wheezes. She has no rales. Musculoskeletal: General: No edema. Diabetic Foot Exam Visual Observations: Left Foot: Deformity is not noted. Skin breakdown is not noted. Erythema is not noted. Callus is not noted. Dry skin is not noted. Thickened nails are noted. Right Foot: Deformity is not noted. Skin breakdown is not noted. Erythema is not noted. Callus is not noted. Dry skin is not noted. Pulse - Vascular Status: Left Foot: Palpable Right Foot: Palpable Sensory - Monofilament: Left Foot: Normal Right Foot: Normal Appointment on 09/07/2019 Component Date Value Ref Range Status Hemoglobin A1c 09/07/2019 6.7* 4.3 - 6.0 % Final Estimated Average Glucose 09/07/2019 146 mg/dL Final Na 09/07/2019 138 136 - 145 mmol/L Final K 09/07/2019 4.2 3.5 - 5.1 mmol/L Final Cl 09/07/2019 101 98 - 107 mmol/L Final CO2 09/07/2019 29 21 - 32 mmol/L Final Anion Gap 09/07/2019 8 2 - 16 mmol/L Final Glucose 09/07/2019 117* 74 - 106 mg/dL Final BUN 09/07/2019 11 7 - 18 mg/dL Final Creatinine 09/07/2019 0.63 0.55 - 1.02 mg/dL Final eGFR if not 09/07/2019 >60 >=60 mL/min/1.73m2 Final GLOMERULAR FILTRATION RATE,ESTIMATED mL/min/1.73m2 Less than 60 Chronic kidney disease,if found over a 3-month period. Less than 15 Kidney failure For Americans,multiply the calculated GFR by 1.21. Calcium 09/07/2019 8.9 8.5 - 10.1 mg/dL Final Albumin 09/07/2019 3.6 3.4 - 5.0 g/dL Final Bilirubin Total 09/07/2019 0.5 0.2 - 1.0 mg/dL Final Total Protein 09/07/2019 7.4 6.4 - 8.2 g/dL Final AST 09/07/2019 20 15 - 37 U/L Final ALT 09/07/2019 64* 14 - 59 U/L Final Alkaline Phosphatase 09/07/2019 79 46 - 116 U/L Final Globulin 09/07/2019 3.8 2.1 - 3.8 g/dL Final Albumin/Globulin Ratio 09/07/2019 0.9 0.8 - 2.0 Final BUN/Creatinine Ratio 09/07/2019 17.5 Final Office Visit on 09/07/2019 Component Date Value Ref Range Status LDL Cholesterol, Direct, External 08/15/2019 81 Final Cholesterol, Total, External 08/15/2019 143 mg/dl Final HDL Cholesterol, External 08/15/2019 33 mg/dl Final Triglycerides, External 08/15/2019 146 Final TSH, External 08/15/2019 0.32 Final uIU/mL Color, UA, POC 09/07/2019 Yellow Yellow, Light Yellow Final Clarity, UA, POC 09/07/2019 Clear Final Glucose, UA, POC 09/07/2019 Negative Negative Final Bilirubin, UA, POC 09/07/2019 Negative Negative Final Ketones, UA, POC 09/07/2019 Negative Negative, 100 mg/dL Final Specific [place], UA, POC 09/07/2019 1.030 1.001 - 1.030 Final Blood, UA, POC 09/07/2019 Trace Intact* Negative Final pH, UA, POC 09/07/2019 6.0 5.0, 6.0, 7.0, 8.0, 5.5, 6.5, 7.5 Final Protein, UA, POC 09/07/2019 100 mg/dL* Negative Final Urobilinogen, UA, POC 09/07/2019 0.2 0.2, Negative, Normal, < 0.2 mg/dL, 1 mg/dL, < 0. 2 E.U./dl, 1.0 E.U./dL, 0.2 mg/dL Final Nitrite, UA, POC 09/07/2019 Negative Negative Final Leukocyte Esterase, UA, POC 09/07/2019 Small* Negative Final Microalbumin, Urine, Random 09/07/2019 30.5* <1.8 mg/dL Final Creatinine, Urine, Random 09/07/2019 202 mg/dL Final Microalbumin/Creatinin ratio 09/07/2019 151* <30 mg/g Final Assessment & Plan: 1. Controlled type 2 diabetes mellitus with microalbuminuria, without long-term current use of insulin (HCC): New diagnosis. BP borderline. LDL well controlled. Vaccines UTD. Due for eye exam - Educated on diabetes, Diet, exercise, weight loss - Check blood sugars daily - Schedule eye exam - lisinopril (PRINIVIL, ZESTRIL) 20 mg tablet; Take 1 tablet by mouth Daily. To lower blood pressure Dispense: 90 tablet; Refill: 1 - metFORMIN (GLUCOPHAGE-XR) 500 mg 24 hr tablet; Take 1 tablet by mouth 2 times daily. For diabetes Dispense: 60 tablet; Refill: 2 - Hemoglobin A1C; Future - Comprehensive Metabolic Panel; Future - * [facility] Diabetes Education - AMB Referral 2. Essential hypertension: Borderline Given microalbuminuria will increase lisinopril - lisinopril (PRINIVIL, ZESTRIL) 20 mg tablet; Take 1 tablet by mouth Daily. To lower blood pressure Dispense: 90 tablet; Refill: 1 Return in about 6 weeks (around 12/14/2019), or if symptoms worsen or fail to improve. Prashanth Chaney MD documented in this e ncounter Plan of Treatment + + +--------+ + + | Name | Type | Priori | Associated Diagnoses | Order Schedule | | | | ty | | | + + +--------+ + + | * [facility] Diabetes | Outpatient | Routin | Controlled [...] + documented as of this encounter Results Comprehensive Metabolic Panel (12/07/2019 10:57 AM PDT) + + + + + + | Component | Value | Ref Range | Performed | Pathologist | | | | | At | Signature | + + + + + + | Na | 140 | 136 - 145 | [facility] | [...] | Cl | 103 | 98 - 107 mmol/L | [facility] | | | | | [facility] | | [facility] | | | | [facility] | | + + + + + + | CO2 | 30 | 21 - 32 mmol/L | [facility] | | | | [facility] | | | | [facility] | | + + + + + + | Anion Gap | 7 | 2 - 16 mmol/L | [facility] | | | | [facility] | | | | [facility] | | + + + + + + | Glucose | 105 | 74 - 106 mg/dL | [facility] [...] + + + + | Creatinine | 0.69 | 0.55 - 1.02 | [facility] | | | | | mg/dL | [facility] | | | | | [facility] | | | | | | [facility] | | + + + + + + | eGFR, | >60Comment: GLOMERULAR | >=60 | [facility] | | | non- | FILTRATION | mL/min/1.73m2 | [facility] | | | [place] | RATE,ESTIMATED | | MEDICAL | | | | mL/min/1.20s0Ptps than | | PARK | | | [...] + + | Calcium | 8.6 | 8.5 - 10.1 | [facility] | [...] + + | AST | 25 | 15 - 37 U/L | [facility] | | | | [facility] | | | [facility] | | | | | | [facility] | | + + + + + + | ALT | 84 (H) | 14 - 59 U/L | [facility] | | | | [facility] | | | [facility] | | | | | | [facility] | | + + + + + + | Alkaline | 77 | 46 - 116 U/L | [facility] [...] + + + + | BUN/Creatin | 11.6 | | [facility] | | | ine [...] + + + | [facility] | [address] | [place] | [phone] | | [facility] | | [address] | | | [facility] | | | | + + + + + Hemoglobin A1C (12/07/2019 10:57 AM PDT) + +---------+ + + + | Component | Value | Ref Range | Performed | Pathologist | | | | | At | Signature | + +---------+ + + + | Hemoglobin | 6.4 (H) | 4.3 - 6.0 % | [facility] | | | A1c | | | [facility] | | | | | [facility] | | | | | | [facility] - | | | | | | LABORATORY | | + +---------+ + + + | Estimated | 137 | mg/dL | [facility] | | | Average | | | [facility] | | | Glucose | | [...] ST. | [address] | [place] | [phone] | | [facility] | | [address] | | | - LABORATORY | | | | + + + + + documented in this encounter Visit Diagnoses + + | Diagnosis | + + | Controlled type 2 diabetes mellitus with microalbuminuria, without long-term current | | use of insulin (HCC) - Primary | + + | Essential hypertension Unspecified essential hypertension | + + documented in this encounter"
--- OUTSIDE RECORDS SUMMARY | ~2020-05-24 | XMS | Encounter Summary ---
Demographics + + + | Address | [facility] | | | [place] [address] | + + + | Home Phone [...] + | Organization | [facility] [...] [place], [place] | | | | | [address] | | + + + + + | Amy Schneider | ECON | [address] | | | | | [place], [place] | | | | | [address] | | + + + + + | Al[place] Schneider | ECON | Unknown | | + + + + + Care Team Providers + +------+ + | Care Stone Processing Machine Operator Name | Role | Phone | + +------+ + | Jet Chaney MD | PCP | | + +------+ + Reason for Visit + +--------+ + | Reason | Onset | Comments | | | Date | | + +--------+ + | Pap Test | 04/10/ | | | | 2018 | | + +--------+ + Encounter Details +--------+ + + + + | Date | Type | Department | Care Team | Description | +--------+ + + + + | 04/10/ | Telephone | [facility] | Jet Chaney, | Pap Test | | 2017 | | [facility] | [address] | | | | | [address] | [place] | | | | | [place] | [id number] | | | | | [address] | | | | | | [phone] | | | +--------+ + + + [...] Telephone Encounter - Rosalina Castano RN - 05/02/2018 10:33 AM PDTCopy of [facility]. She was HPV negative so pap can be repeated in 3 yea rs. Letter was sent from [facility] giving her this information elephone Encounter - Jenny Peralta RN - 05/01 10:59 AM PDTLeft message to call back elephone Enc Jet Early MD - 04/23/2018 4:24 PM PDTPap from 01/27/18 reviewed. She has a typical cells of uncertain significance. Please reassure her that this is a COMMON finding and usually resolves on its own (as it did when she had ASCUS in 10/10/12). Typically we check for the human papilloma virus to see if she has it. If she is HPV negat ashok - then we repeat a Pap in 3 years. If she is HPV positive - then we recommend she have a colposcopy to better evaluate her cervix. Will you please see if they tested for HPV. If they did NOT test for HPV - then we recommend repeating a Pap smear in 1 year. Thanks! Prashanth Chaney MD elephone Encounter - Rosalina Castano RN - 04/11/2018 11:16 AM PDTPap report printed and routed to Dr Elaine arRossyectronically signed by Rosalina Castano RN at 04/11/2018 11:17 AM PDTTelephone Encou nter - Tamar Lugo RN - 04/10/2018 4:42 PM PDTPatient had a pap [facility] She was told results were going to be faxed to Dr. Chaney, but she has not heard anything. Will you please retrieve pap records from [facility] and route to Dr. Chaney? Patient would like a call back at [phone]. documented in this encounter Plan of Treatment Not on filedocumented as of this encounter Procedures + +--------+ + + + | Procedure Name | Priori | Date/Time | Associated Diagnosis | Comments | | | ty | | | | + +--------+ + + + | EXTERNAL LAB: PAP | Routin | 01/27/2018 | | Results for this | | SMEAR | e | | | procedure are in the | | | | | | results section. | + +--------+ + + + documented in this encounter Results External Lab: PAP Smear (01/27/2018) + + + + + + | Component | Value | Ref Range | Performed | Pathologist | | | | | At | Signature | + + + + + + | Pap Smear, | Atypical squamous cells | | | | | External | of undetermined | | | | | | significance | | | | + + + + + + documented in this encounter Visit Diagnoses Not on filedocumented in this encounter"
--- OUTSIDE RECORDS SUMMARY | ~2020-05-24 | XMS | Encounter Summary ---
Demographics + + + | Address | [facility] | | | [place] [address] | + + + | Home Phone [...] + + + | Author | [facility] | | | and [place] | + + + | Organization | [facility] | | | and [...] [place], [place] | | | | | [address] | | + + + + + | Amy Schneider | ECON | [address] | | | | | [place], [place] | | | | | [address] | | + + + + + | Alisha Schneider | ECON | Unknown | | + + + + + Care Team Providers + +------+ + | Care Front Edger Name | Role | Phone | + [...] | | | | back pain | [address] | [place] | | | | | without | [place], | [place] | | | | | sciatica | [place] [address] | [address] | | | | | Chronic left | Phone: | ST | | | | | SI joint | [phone] | [facility] | | | | | pain | Fax: | [place], [place] | | | | | Procedures | [phone] | [address] | | | | | CT PHYSICAL | | Phone: | | | | | THERAPY | | [phone] | | | | | EVALUATION | | Fax: | | | | | LOW COMPLEX | | [phone] | | | | | [address] | | | | | | | PHYSICAL | | | | | | | THERAPY | | | | | | | EVALUATION | | | | | | | MOD COMPLEX | | | | | | | [address] | | | | | | | PHYSICAL | | | | | | | THERAPY | | | | | | | EVALUATION | | | | | | | HIGH COMPLEX | | | | | | | [address] | | | | | | | PHYSICAL | | | | | | | THERAPY | | | | | | | RE-EVAL EST | | | | | | | PLAN CARE 20 | | | | | | | MINS HIM | | | | | | | 2/6 | | | +--------+ + + + + + Reason for Visit + + + | Reason | Comments | + + + | Back Pain | | + + + Encounter Details +--------+---------+ + + + | Date | Type | Department | Care Team | Description | +--------+---------+ + + + | 09/17/ | Office | [facility] [place] | Eloy Moore, | Chronic midline low | | 2018 | Visit | PHYSIATRY [address] | MD [address] | back pain without | | | | [address] | [place], [place] | sciatica (Primary | | | | [place], [place] | [address] | Dx); Chronic left SI | | | | [address] | | joint pain; Lumbar | | | | [phone] | | facet arthropathy; | | | | | | Insomnia, secondary | | | | | | to pain; Non morbid | | | | | | obesity, unspecified | | | | | | obesity type | +--------+---------+ + + + Social [...] + + + | Blood Pressure | 122/60 | 09/17/2017 9:53 AM | | | | | PST | | + + + + + | Pulse | 68 | 09/17/2017 9:53 AM | | | | | PST | | + + + + + | Temperature | - | - | | + + + + + | Respiratory Rate | 16 | 09/17/2017 9:53 AM | | | | | PST | | + + + + + | Oxygen Saturation | - | - | | + + + + + | Inhaled Oxygen | - | - | | | Concentration | | | | + + + + + | Weight | 90.7 kg (200 lb) | 09/17/2017 9:53 AM | | | | | PST | | + + + + + | Height | 157.5 cm (5' 2") | 09/17/2017 9:53 AM | | | | | PST | | + + + + + | Body Mass Index | 36.58 | 09/17/2017 9:53 AM | | | | | PST | | + + + + + documented in this encounter Patient Instructions Patient Instructions Krystle Osorio RN - 09/17/2017 9:40 AM PSTPhysical therapy has bee n prescribed. Please participate in physical therapy. If you have not be contacted for an appointment with physical therapy within one week, please contact the clinic. Once you have completed physical therapy please continue the home exercise program as outline by physical therapy, indefinitely. X-rays have been requested. Please go to the x-ray department after your appointment to co mplete these x-rays. The results of your x-rays will be reviewed at your next appointment. If your x-rays demonstrate any emergent results, the clinic will contact you. Please take the prescribed medication nortriptyline. Taper up the dose of the medication as directed. Stop tapering up the medication at the lowest effective dose. If you have side effects to the medication, reduce the dose of the medication to the last dose that you were able to tolerate without side effects. There is an increased risk of gastrointestinal bleed and/or ulcer with all nonsteroidal ant iinflammatory medication (NSAIDs) including the medication prescribed for you. If you have stomach upset or pain stop taking the medication. If you have dark black stool or if you vo riri up what looks like coffee grounds please seek emergent medical attention. There is an increased risk of cardiovascular disease, such as heart attack and/or wit h all nonsteroidal antiinflammatory medication (NSAIDs) including the medications prescribed for you. If you have chest pain, shortness of breath, chest pressure; stop taking the medi cation and seek emergent medical attention. There is an increased risk of stroke, disabilit y, and with all nonsteroidal antiinflammatory medication (NSAIDs). documented in this encounter Progress Notes Eloy Moore MD - 09/17/2017 9:40 AM PSTFormatting of this note might be different fro m the original. Eloy Moore MD [address] [place] [address], [address] [place] [address] FAX: PHYSICAL MEDICINE AND REHABILITATION H&P CHIEF COMPLAINT: Chief Complaint Patient presents with Back Pain HISTORY OF PRESENT ILLNESS: Baudilio Schneider is a 37 y.o. female being seen today in follow-up for complaints of back pain . Baudilio Schneider was last seen on 03/11/17. 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 Baudilio Schneider reports that she has completed her rheumatology consult, she reports that the pipeline maintenance supervisor gave her no new information, chart notes from this visit are not available a t this time. Overall Baudilio Schneider reports that her symptoms are worsening slightly. She reports pain pr imarily to the left lower back, with intermittent right low back pain. Baudilio Schneider rates t he pain as 5 on scale of 1-10. Baudilio Schneider describes the pain as an aching. Her symptom s worsen with bending, lying down flat, and lifting. Her symptoms improve with change of po sition and use of meloxicam. Baudilio Schneider does not describe numbness of the legs. She d oes not report weakness of the legs. She does not have bowel and bladder dysfunction. She does not have saddle anesthesia. Treatments for these complaints have included Physical Therapy and medications including me loxicam and Cymbalta. Cymbalta was discontinued due to side effects . She continues to take meloxicam daily with no side effects noted, she reports medication is helpful in reducing pa in somewhat. Baudilio Olsens medications, allergies, past medical, surgical, [...] times daily. With food 60 tabl et 5 Multiple Vitamins-Minerals (WOMENS ONE DAILY PO) Take [...] ear discharge, ear pain, hearing loss, nosebleeds, sinus alonzo n, sore throat and tinnitus. Eyes: Negative for blurred vision, [...] hematuria and urgency. Musculoskeletal: Positive for back pain and joint pain. Negative for falls, myalgias and ne ck pain. Skin: Negative for itching and rash. [...] is not nervous/anxious. PHYSICAL EXAMINATION: Blood pressure 122/60, pulse 68, resp. rate 16, height 1.575 m (5' 2"), weight 90.7 kg (200 lb), not currently . Body mass index is 36.58 kg/m. 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 The cranial nerves appear grossly intact. [...] Plantarflexion 5 5 REFLEX: RIGHT LEFT PATELLAR 2+ 2+ ACHILLES 2+ 2+ MUSCULOSKELETAL : The patient localized the majority of the pain to the midline low back re gion. Tenderness with palpation over left SI joint. Bear's maneuver test positive to left. Lumbar facet loading was negative. There was no redness, effusion, warmth or joint line tenderness in the ankles. DATABASE: Lumbar MRI competed 11/25/15. The imaging demonstrates: early mid to lower lumbar facet art hropathy without disc without disc pathology or stenosis. ASSESSMENT: 1. Chronic midline low back pain without sciatica 2. Chronic left SI joint pain 3. Lumbar facet arthropathy 4. Insomnia, unspecified type 5. Non morbid obesity, unspecified obesity type PLAN: 1. Baudilio Schneider's physical assessment and report of symptoms today is most consistent with pain coming from left SI joint dysfunction. We dicussed that the SI joint is a weight bear ring joint in the body. We dicussed that the SI joint is meant to be relatively stable. We d icussed when and if the SI joint becomes hypermobile it can result in irritation, inflammati on, and pain. Baudilio Schneider will complete a SI joint x-ray to evaluate for degenerative changes and evide nce of sclerosis. We dicussed treatment of Left SI joint dysfunction with NSAIDS with the goal of reducing sw elling and inflammation to treat pain. 2. Baudilio Schneider is currently using medication meloxicam with reported benefit, she will co ntinue this medication, a refill will be sent today. Baudilio Schneider was advised that there is an increased risk of gastrointestinal bleed and/or ulcer with all nonsteroidal antiinflammatory medication (NSAIDs) including the medication cathy carey is using. Baudilio Schneider was advised that if she experiences stomach upset or pain to stop taking the medication. Advised to seek emergent medical attention if she has any dark brodie k stool or if she vomits up what looks like coffee grounds. Baudilio Schneider was advised that there is an increased risk of cardiovascular disease, such a s heart attack and/or with all nonsteroidal antiinflammatory medication (NSAIDs) inclu ding the medications that she is using. Baudilio Schneider was advised to stop taking the medicat ion and seek emergent medical attention is if she were to develop chest pain, shortness of b reath, or chest pressure. Baudilio Schneider was advised that there is an increased risk of stro ke, disability, and with all nonsteroidal antiinflammatory medication (NSAIDs). 3. Baudilio Schneider was advised that first line and primary treatment of SI joint dysfunction is to reduce movement in the joint through strengthening and exercises. Baudilio Schneider will return to physical therapy to focus on strengthening of the SI joint. So malik Schneider is encouraged to maintain physical activity, inactivity may increase rate of deg eneration when arthritis is involved. We discussed that activity maintains function, stren gth, and mobility. 4. We dicussed other possible treatments including a left SI joint injection. This will not be considered until she has completed physical therapy. 5. We dicussed possible treatment with surgical intervention. We discussed that surgical t reatment is usually considered last resort. We discussed that surgical treatment may be help ful for reducing movement of the joint, but pain may persist after surgical treatment. 6. We dicussed prior MRI from 2016 demonstrates facet arthritis, this to may be contributin g to her reports of pain, although today pain is primarily located at the left SI joint. We dicussed he recently completed labs, she was advised to follow up with her PCP regarding shannan betic changes as noted in her labs. 7. Today we dicussed Baudilio Schneider sleep health and emotional wellbeing. She reports having poor sleep, having a difficult time falling asleep, and difficult time staying asleep. She reports pain wakes her. She also reports having difficulty with sleep due to feelings of wor ry. We dicussed that poor sleep can effect brain chemistry that may contribute to increased fee lings of pain. Baudilio Schneider will start taking nortriptyline. She has used this in the past with no known side effects, it was discontinued for alternative therapy. Baudilio Schneider will use this medic ation with the goal of improved sleep, and possible benefit of reduced pain. Baudilio Schneider will take nortriptyline 10 mg, she was advised to take 1 capsule by mouth at bedtime for 7 days; then 2 at bedtime for 7 days; then 3 at bedtime for 7 days; then 4 at be dtime. Baudilio Schneider was advised to taper up the dose of the medication as directed. She was advised to stop tapering up the medication at the lowest effective dose. She was advis ed that if She experiences side effects to the medication that She should reduce the dose o f the medication to the last dose that She was able to tolerate without side effects. Baudilio Schneider was advised to take one hour prior to sleep and to take the medication a mini mum of 8 hours prior to needing to wake; in effort to reduce her chances of sedation in the morning. 8. Notes will be requested from Rheumatology consult for review. 9. Baudilio Schneider will be scheduled to return to the clinic in 10 weeks to review her sympto ms, to discuss x-ray results, to review her response to medication nortriptyline, and to rev iew her response to physical therapy. I spent 30 minutes in visit with Baudilio Schneider today with the majority of time spent counse lling the patient on her diagnosis, options for her care, and coordinating her care. I, Eloy Moore MD personally performed the services described in this documentation, as scribed by in my presence, Krystle Osorio RN and are both accurate and complete. Eloy Moore MD - 09/17/2017 documented in this en counter Plan of Treatment + + +--------+ + + | Name | Type | Priori | Associated Diagnoses | Order Schedule | | | | ty | | | + + +--------+ + + | Physical Therapy - | Outpatient | Routin | Chronic midline | Ordered: 09/17/2017 | | Ambulatory Referral | Referral | e | low back pain | | | | | | without sciatica | | | | | | Chronic left SI | | | | | | joint pain | | + + +--------+ + + documented as of this encounter Results XR Sacroiliac Joints Complete [...] sciatica - Primary | + + | Chronic left SI joint pain Disorders of sacrum | + + | Lumbar facet arthropathy Lumbosacral spondylosis without myelopathy | + + | Insomnia, secondary to pain | + + | Non morbid obesity, unspecified obesity type | + + documented in this encounter
--- OUTSIDE RECORDS SUMMARY | ~2020-05-24 | XMS | Encounter Summary ---
Demographics + + + | Address | [facility] | | | [place] [address] | + + + | Home Phone [...] + | Author | [facility] | | | and [place] | + + + | Organization | [facility] [place] | | | and [place] | [...] [place], [place] | | | | | [address] | | + + + + + | Amy Schneider | ECON | [address] | | | | | [place], [place] | | | | | [address] | | + + + + + | Alisha Schneider | ECON | Unknown | | + + + + + Care Team Providers + +------+ + | Care Air Deodorizer Servicer Name | Role | Phone | [...] | Specialty | Gastroenterol | Diagnoses | Shawn, | Shawn, | | | Services | ogy | | Hill Holder MD | Hill Holder MD | | | Required | | Gastroesopha | [address], | | | | | geal reflux | [address], [place] | [address] | | | | | disease with | [address] [place] | [place], | | | | | esophagitis | [place], [place] | [place] [address] | | | | | Epigastric | [address] | Phone: | | | | | abdominal | Phone: | [phone] | | | | | pain | [phone] | Fax: | | | | | Procedures | Fax: | [phone] | | | | | MS | [phone] | | | | | | ESOPHAGOGAST | | | | | | | RODUODENOSCO | | | | | | | PY TRANSORAL | | | | | | | DIAGNOSTIC | | | | | | | MS EDG | | | | | | [...] | Gastroenterol | Diagnoses | Ritu, | Shawn, | | | Services | ogy | Chronic | Jet Dempsey MD | Hill Holder MD | | | Required | | abdominal | [address] | [address], | | | | | pain | [address] [place] | [address] | | | | | | [place], [place] | [place], | | | | | | [address] | [place] [address] | | | | | | Phone: | Phone: | | | | | | [phone] | [phone] | | | | | | Fax: | Fax: | | | | | | [phone] | [phone] | +--------+ + + + + + Encounter Details +--------+---------+ + + + | Date | Type | Department | Care Team | Description | +--------+---------+ + + + | 08/13/ | Office | [facility] [place] | Jet Chaney, | Gastroesophageal | | 2016 | Visit | GASTROENTEROLOGY | [address] | reflux disease with | | | | [address] | [place], [place] | esophagitis (Primary | | | | [address] [place], [place] | [address] | Dx); Epigastric | | | | [address] | | abdominal pain | | | | [phone] | Hill [place] MD | | | | | | [address], [place] | | | | | | [address] [place], [place] | | | | | | [address] | | | | | | | [...] + + + | Blood Pressure | 116/68 | 08/13/2016 4:01 PM | | | | | PST | | + + + + + | Pulse | 86 | 08/13/2016 4:01 PM | | | | | PST | | + + + + + | Temperature | - | - | | + + + + + | Respiratory Rate | 16 | 08/13/2016 4:01 PM | | | | | PST | | + + + + + | Oxygen Saturation | 98% | 08/13/2016 4:01 PM | | | | | PST | | + + + + + | Inhaled Oxygen | - | - | | | Concentration | | | | + + + + + | Weight | 92.1 kg (203 lb) | 08/13/2016 4:01 PM | | | | | PST | | + + + + + | Height | 157.5 cm (5' 2") | 08/13/2016 4:01 PM | | | | | PST | | + + + + + | Body Mass Index | 37.13 | 08/13/2016 4:01 PM | | | | | PST | | + + + + + documented in this encounter Progress Notes [place] MD - 08/13/2016 4:33 PM PST Subjective: Patient ID: Baudilio Schneider is a 35 y.o. female. HPI Comments: Patient is seen for evaluation of abdominal pain. Records are reviewed The patient states that the pain began approximately a year ago. However reviewing the [facility] rt show she had evaluation for abdominal pain details unclear in 2013 and also 2013. Patient complains of epigastric [...] Past Surgical History Procedure Laterality Date Tonsillectomy 2010 Cholecystectomy 2000 Endoscopy 09/21/13 negative for h.pylori,negative [...] 5 Years of Education: N/A Occupational History [employer] in [place] Social History Main Topics Smoking status: Light Tobacco Smoker -- .3 years Smokeless tobacco: Never Used Comment: 2 cigarettes daily Alcohol Use: No Drug Use: No Sexual Activity: Partners: Male Comment: Mirena IUD 09/2015 Other Topics Concern None Social History Narrative Marital Status: . 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 generalized decreased in gastrointestinal motility Portions of this report were transcribed using voice recognition software. Every effort wa s made to ensure accuracy; however, inadvertent computerized bobbin disker errors may be pre sent. documented in this enc ounter Miscellaneous Notes Addendum Note - Fifi Mccoy RN - 08/13/2016 5:16 PM PST Addended by: SD MCCOY on: 08/13/2016 17:16 Modules accepted: Orders documented in this encounter Plan of Treatment + + +--------+ + + | Name | Type | Priori | Associated Diagnoses | Order Schedule | | | | ty | | | + + +--------+ + + | Ambulatory referral | Outpatient | Routin | Gastroesophageal | Expected: | | to Gastroenterology | Referral | e | reflux disease with | 08/28/2016, Expires: | | (shawn) | | | esophagitis | 08/13/2017 | | | | | Epigastric abdominal | | | | | | pain | | + + +--------+ + + documented as of this encounter Visit Diagnoses + + | Diagnosis | + + | Gastroesophageal reflux disease with esophagitis - Primary | + + | Epigastric abdominal pain Abdominal pain, epigastric | + + documented in this encounter
--- OUTSIDE RECORDS SUMMARY | ~2020-05-24 | XMS | Encounter Summary ---
Demographics + + + | Address | [facility] | | | [place] [address] | + + + | Home Phone | | + + + | Preferred Language | Unknown | + + + | Marital Status | Single | + + + | Synagogue Affiliation | 1041 | + + + | Race | Unknown | + + + | Ethnic Group | or | + + + Author + + + | Author | [facility] | | | and [place] | + + + | Organization | [facility] | | [...] [place], [place] | | | | | [address] | | + + + + + | Amy Schneider | ECON | [address] | | | | | [place], [place] | | | | | [address] | | + + + + + | Alisha Schneider | ECON | Unknown | | + + + + + Care Team Providers + +------+ + | Care Scale Tank Operator Name | Role | Phone | [...] + + | Denied | Specialty | Gastroenterol | Diagnoses | [facility] | [facility] | | Services | ogy | Chronic | Jet Dempsey MD | Gastroenterol | | | Required | | abdominal | [address] | [address] | | | | | pain | [address] [place] | [address] | | | | | | [place] | [address] [place] | | | | | | [address] | [place] | | | | | | Phone: | [phone] | | | | | | [phone] | Phone: | | | | | | Fax: | [phone] | | | | | | [phone] | Fax: | | | | | | | [phone] | +--------+ + + + + + Evaluate & Treat (Routine) +--------+ + + + + + | Status | Reason | Specialty | Diagnoses / | Referred By | Referred To | | | | | Procedures | Contact | Contact | +--------+ + + + + + | Denied | Specialty | Physical | Diagnoses | Ritu, | | | | Services | Therapy | Chronic low | Jet Dempsey MD | | | | Required | | back pain | [address] | | | | | | | [place] | | | | | | | [place] | | | | | | | [address] | | | | | | | Phone: | | | | | | | [phone] | | | | | | | Fax: | | | | | | | [phone] | | +--------+ + + + + + Consultation (Routine) +--------+ + + + + + | Status | Reason | Specialty | Diagnoses / | Referred By | Referred To | | | | | Procedures | Contact | Contact | +--------+ + + + + + | Denied | Specialty | | Diagnoses | Ritu, | [facility] | | | Services | | Obesity | Jet Dempsey MD | [address] | | | Required | | (BMI | [address] | [place] | | | | | 30-39.9) | [address] [place] | [place], [place] | | | | | | [place] | [address] | | | | | | [address] | Phone: | | | | | | Phone: | [phone] | | | | | | [phone] | Fax: | | | | | | Fax: | [phone] | | | | | | [phone] | | +--------+ + + + + + + + | Scheduling Instructions | + + | Medical Diagnosis - Please select the appropriate medical diagnosis(s): Obesity | | (278.00) Treatment Plan - Please select the appropriate treatment plan from this | | list and complete any variables or instructions associated with the selected plan: | | Medical Nutritional Therapy | + + Reason for Visit + + + | Reason | Comments | + + + | Abdominal Pain | | + + + | Back Pain | lower back x 3 months | + + + Encounter Details +--------+---------+ + + + | Date | Type | Department | Care Team | Description | +--------+---------+ + + + | 07/17/ | Office | [facility] | Jet Chaney, | Chronic abdominal | | 2012 | Visit | [facility] | [address] | pain (Primary Dx); | | | | [address] | [place] | Chronic low back | | | | [place] | [address] | pain; Obesity (BMI | | | | [address] | | 30-39.9); | | | | [phone] | | Hypothyroidism | +--------+---------+ + + [...] + + + | Blood Pressure | 104/74 | 07/17/2013 9:36 AM | | | | | PDT | | + + + + + | Pulse | 76 | 07/17/2013 9:36 AM | | | | | PDT | | + + + + + | Temperature | 36.8 C (98.2 F) | 07/17/2013 9:36 AM | | | | | PDT | | + + + + + | Respiratory Rate | 20 | 07/17/2013 9:36 AM | | | | | PDT | | + + + + + | Oxygen Saturation | - | - | | + + + + + | Inhaled Oxygen | - | - | | | Concentration | | | | + + + + + | Weight | 99.1 kg (218 lb 6.4 | 07/17/2013 9:36 AM | | | | oz) | PDT | | + + + + + | Height | 160 cm (5' 3") | 07/17/2013 9:36 AM | | | | | PDT | | + + + + + | Body Mass Index | 38.69 | 07/17/2013 9:36 AM | | | | | PDT | | + + + + + documented in this encounter Patient Instructions Patient Instructions Jet Chaney MD - 07/17/2013 10:04 AM PDT BP 104/74 | Pulse 76 | Temp 36.8 C (98.2 F) (Temporal) | Resp 20 | Ht 1.6 m (5' 3") | W t 99.066 kg (218 lb 6.4 oz) | BMI 38.69 kg/m2 | LMP 06/20/2013 The best thing you can do for your health is lose weight. This will help improve your abdo ivonne pain and back pain. Please work with physical therapy to strengthen your core and improve your back pain. I have placed referrals to gastroenterology (for the abdominal pain), physical therapy, and health technician hearing. If you do not hear from all of them by the end of the week, please call my o ffice. Abdominal Pain, Uncertain Cause (Female) Based on your visit today, the exact cause of your abdominal (stomach) pain is not certain. Your condition does not seem serious now; however, the signs of a serious problem may take more time to appear. Therefore, it is important for you to watch for any new symptoms or wor sening of your condition. Home Care: Rest until your next exam. No strenuous activities. Eat a diet low in fiber (called a low-residue diet). Foods allowed include refined bread s, white rice, fruit and vegetable juices without pulp, tender meats. These foods will pass more easily through the intestine. Avoid whole-grain foods, whole fruits and vegetables, meats, seeds and nuts, fried or fa tty foods, dairy, alcohol and spicy foods until your symptoms go away. Follow Up with your doctor or this facility as instructed, or if your pain does not begin to improve in the next 24 hours. Get Prompt Medical Attention if any of the following occur: Pain gets worse or moves to the right lower abdomen New or worsening vomiting or diarrhea Swelling of the abdomen Unable to pass stool for more than three days Fever of 100.4F (38C) or higher, or as directed by your healthcare provider. Blood in vomit or bowel movements (dark red or black color) Jaundice (yellow color of eyes and skin) Weakness, dizziness or fainting Chest, arm, back, neck or jaw pain Unexpected vaginal bleeding or missed period [id number] [facility], [address] [place] [address], [place] [address]. All rights reserve d. This information is not intended as a substitute for professional medical care. Always fo llow your healthcare professional's instructions. Exercises To Strengthen Your Lower Back Strong lower-back and abdominal muscles work together [...] exercise program that suits your condition better. Low Back Stretch Lie on your back with your knees [...] to your chest at the same time. Building Lower Back Strength 1. Kneeling Lumbar Extension: Begin on your [...] flattening your lower back against the f sky. Holding the tension in your abdominal muscles, take another breath and raise your shou lder blades off the ground (this is not a full sit-up). Keep your head in line with your bod y (don t bend your neck forward). Hold for 2 seconds, then slowly lower. [phone] Yany [facility], [address] [place] [address], [place] [address]. All rights reserve d. This information is [...] easier. Ask your family members and f gueroends for support. They may even want to join you. Also look to your doctor, registered titian, and fitness coach for help. Your local hospital can give you more information about nutrition, exercise, and weight loss. [phone] Yany [facility], [address] [place] [address], [place] [address]. All rights reserve d. This information is not intended as a substitute for professional medical care. Always fo llow your healthcare professional's instructions. Weight Management: Fact and Fiction Knowing the truth about losing weight can help you separate what works from what doesn t. Don t be taken in by expensive weight-loss fads like pills, herbs, and special foods. The re s no magic way to lose weight. If you have questions about weight loss, ask your health care provider. Fiction: The faster I lose weight, the better. Fact: Rapid weight loss is usually due to loss of water or muscle mass. What you re tryin g to get rid of is extra fat. Aim to lose 1/2 2 pounds a week. Then you re more likely t o lose fat rather than water or muscle. Fiction: Skipping meals will help me lose weight. Fact: When you skip meals, you don t give your body the energy it needs to work. Hunger m akes you more likely to overeat later on. It s best to spread your meals throughout the da y. Eat at least 3 meals a day. Fiction: I can t [...] This is why you need to make changes you can stick with. Fiction: Low-fat and fat-free mean low-calorie. Fact: All foods, even fat-free ones, have calories. Eat too many calories and you ll gain weight. It s okay to treat yourself to a fat-free cookie or two. Just don t eat the who le box! [phone] Yany Agustin, [address] [place] [address], [place] [address]. All rights reserve d. This information is not intended as a substitute for professional medical care. Always fo llow your healthcare professional's instructions. Weight Management: Exercise and Activity Studies show that people who exercise are the most likely to lose weight and keep it off. E xercise howe calories. It helps build muscle to make your body stronger. Make exercise part of your weight-management plan. Make Activity Part of Your Day You may not think you have the time to exercise. But you can work activity into your daily life. Take 10 minutes out of your lunch hour to take a walk. Walk to the [employer] to get yo ur paper instead of having it delivered. Make it a habit to take the stairs instead of the e levator. Park in the farthest parking spot instead of the closest. You ll be surprised at how fast these little changes can make a difference. The Benefits of Exercise Exercise increases your metabolism (the speed at which your body howe calories). Regular exercise can increase the amount of muscle in your body. Muscle howe calories f philippe than fat. The more muscle you have, the more calories you burn. Exercise gives you energy and curbs your appetite. Exercise decreases stress and helps you sleep better. Make Exercise Fun Exercise can be fun. Choose an activity you enjoy. You may even get a friend to do it with you. Take a resistance-training or aerobics class Join a team sport Take a dance class Walk the dog Ride a bike If you have health problems, be sure to ask your doctor before you start an exercise cherise carty Have a fitness coach help you develop a plan that s safe for you. Yany Agustin, [address] [place] [address], [place] [address]. All rights reserve d. This information is not intended as a substitute for professional medical care. Always fo llow your healthcare professional's instructions. documented in this encounter Progress Notes Jet Chaney MD - 07/17/2013 9:47 AM PDTFormatting of this note might be different fr om the original. Subjective: Patient ID: Baudilio Schneider is a 32 y.o. female here for abdominal pain. HPI She increased her omeprazole to 40 mg daily and noticed "a little bit less pain" - but cont inues to have pain in her epigastric and RUQ area. Described as "inflammation and bloating. " Occasionally associated with nausea. Occasionally radiates to her sides. Pain is worse with eating. At its worse rates 05/26. Nothing seems to make the pain better (other than mi ldly better with increased dose omeprazole). Currently no pain. She does use NSAIDs. No f ever, weight loss, dysphagia, vomiting, diarrhea, constipation, dysuria, hematuria. She has chronic left lower back pain for over 3 months. Described as "stab." The pain solis s not radiate. Pain is worse in the morning when she first wakes up. Nothing else seems to make the pain worse. The pain has been stable for the last 3 months. She has tried ibupro fen 600-800 mg up to three times daily without significant improvement. No fever, saddle pa resthesias, leg paresthesias, leg weakness, bowel/bladder dysfunction. No history of back t rauma or surgeries. She never tried PT. She is discouraged by her inability to lose weight. She has gained ~30 lbs in the last 2 y ears. Patient's medications, allergies, past medical, surgical, social and family histories were reviewed and updated as appropriate. Review of Systems See HPI BP 104/74 | Pulse 76 | Temp 36.8 C (98.2 F) (Temporal) | Resp 20 | Ht 1.6 m (5' 3") | W t 99.066 kg (218 lb 6.4 oz) | BMI 38.69 kg/m2 | LMP 06/20/2013 Objective: Physical Exam Constitutional: Very pleasant, well developed, NAD Pulmonary/Chest: Breath sounds normal. No respiratory distress. She has no wheezes. She has no rales. Abdominal: Soft. She exhibits no distension and no mass. There is no tenderness. There is n o rebound and no guarding. Prior surgical scars present Musculoskeletal: No spinal or paraspinal tenderness present. No SI tenderness. Full symmetric strength with hip flexion, knee flex/ext, ankle flex/ext Neurological: Negative straight leg raise. Patella and Achilles DTR 2+ symmetric Sensation to light touch intact in LE's. Assessment: Baudilio was seen today for abdominal pain and back pain. Diagnoses and associated orders for this visit: Chronic epigastric abdominal pain and dyspepsia: She is s/p cholecystectomy. Unremarkable RUQ US, LFTs wnl, lipase wnl, celiac panel neg, CBC wnl. - H Pylori screen - Continue omeprazole 40 mg - Limit NSAIDs - Ambulatory referral to Gastroenterology Chronic low back pain: Chronic, slightly worsened. No radicular symptoms - Educated on warning symptoms of back pain - Work on weight loss, core strengthening. - Ambulatory referral to Physical Therapy Obesity (bmi 30-39.9) - Reviewed lifestyle changes. - Ambulatory referral to Nutrition Services FU: 8 weeks Prashanth Chaney MD Cherri [address]ios [address] [employer] - 07/17/2013 9:39 AM PDTPatient is here to follow up on abdominal pain not impr oving. She is also complaining of lower back pain(mainly left side) x 3 months and getting r ecently getting worse specifically in the mornings documented in this encounter Plan of Treatment + + +--------+ + + | Name | Type | Priori | Associated Diagnoses | Order Schedule | | | | ty | | | + + +--------+ + + | Ambulatory referral | Outpatient | Routin | Obesity (BMI | Ordered: 07/17/2013 | | to Nutrition | Referral | e | 30-39.9) | | | Services | | | | | + + +--------+ + + | Ambulatory referral | Outpatient | Routin | Chronic low back | Ordered: 07/17/2013 | | to Physical Therapy | Referral | e | pain | | + + +--------+ + + | Ambulatory referral | Outpatient | Routin | Chronic abdominal | Ordered: 07/17/2013 | | to Gastroenterology | Referral | e | pain | | + + +--------+ + + documented as of this encounter Results TSH (07/20/2013 3:01 PM PST) + + + + + + | Component | Value | Ref Range | Performed | Pathologist | | | | | At | Signature | + + + + + + | TSH | 0.44Comment: Testing | 0.34 - 5.60 | [facility] | | | | performed on the [facility] | uIU/mL | [facility] | | | | [facility] | | MEDICAL | | | [...] + | [facility] | [address] | [place] | [phone] | | [facility] | | [address] | | | - LABORATORY | | | | + + + + + | [facility] | [address] | [place], [place] | | | [facility] | | [id number] | | | - LABORATORY | [...] | r pylori Ab | | | [facility] | | [...] [address] | [place] | [phone] | | [facility] | | [address] | | | - LABORATORY | | | | + + + + + | [facility] [address] | [address] | [place], [place] | | | [facility] | | [address], [facility] | | | - LABORATORY | | | | + + + + + documented in this encounter Visit Diagnoses + + | Diagnosis | + + | Chronic abdominal pain - Primary Abdominal pain, unspecified site | + + | Chronic low back pain Lumbago | + + | Obesity (BMI 30-39.9) Obesity, unspecified | + + | Hypothyroidism Unspecified hypothyroidism | + + documented in this encounter
--- OUTSIDE RECORDS SUMMARY | ~2020-05-24 | XMS | Encounter Summary ---
Demographics + + + | Address | [facility] | | | [place] [address] | + + + | Home Phone [...] Organization | [facility] | | | and [place] [...] [place], [place] | | | | | [address] | | + + + + + | Amy Schneider | ECON | [address] | | | | | [place], [place] | | | | | [address] | | + + + + + | Alisha Schneider | ECON | Unknown | | + + + + + Care Team Providers + +------+ + | Care Insect Control Inspector Name | Role | Phone | [...] | [address] | [address], | | | | | pain | [address] [place] | [address] | | | | | [place] | [place] | [place], | | | | | esophagus | [address] | [place] [address] | | | | | without | Phone: | Phone: | | | | | dysplasia | [phone] | [phone] | | | | | Chronic | Fax: | Fax: | | | | | gastritis | [phone] | [phone] | | | | | without | [...] Description | +--------+---------+ + + + | 03/03/ | Office | [facility] | Jet Chaney, | Upper abdominal pain | | 2018 | Visit | [facility] [place] | [address] | (Primary Dx); | | | | [address] | [place] | Hodges's esophagus | | | | [place] | [address] | without dysplasia; | | | | [address] | | Nephrolithiasis; | | | | [phone] | | Chronic gastritis | | | | | | without bleeding, | | | | | | unspecified | | | | | | gastritis type; | | | | | | Chronic left-sided | | | | | | low back pain | | | | | | without sciatica; | | | | | | Impaired [...] + + + | Blood Pressure | 134/86 | 03/03/2018 4:39 PM | | | | | PDT | | + + + + + | Pulse | 78 | 03/03/2018 4:39 PM | | | | | PDT | | + + + + + | Temperature | 36.6 C (97.8 F) | 03/03/2018 4:39 PM | | | | | PDT | | + + + + + | Respiratory Rate | 20 | 03/03/2018 4:39 PM | | | | | PDT | | + + + + + | Oxygen Saturation | 100% | 03/03/2018 4:39 PM | | | | | PDT | | + + + + + | Inhaled Oxygen | - | - | | | Concentration | | | | + + + + + | Weight | 90.5 kg (199 lb 8.3 | 03/03/2018 4:39 PM | | | | oz) | PDT | | + + + + + | Height | 157.5 cm (5' 2.01") | 03/03/2018 4:39 PM | | | | | PDT | | + + + + + | Body Mass Index | 36.48 | 03/03/2018 4:39 PM | | | | | PDT | | + + + + + documented in this encounter Patient Instructions Patient Instructions Jet Chaney MD - 03/03/2018 4:30 PM PDTStart the pantoprazole e very morning - ideally 30 minutes before breakfast. This is to help your stomach inflammati on. Drink enough water so that you urinate at least 2 liters every day. If you do not hear from the gastroenterology office by next Saturday - please let us know. Kidney Stone,Undescended A kidney stone (nephrolithiasis) begins as tiny crystals that form inside the kidney where urine is made. Most kidney stones enlarge to about 1/8 to 1/4 inch in size before leaving th e kidney and moving toward the bladder. There are 4 types of kidney stones. Eighty percent a re calcium stones mostly calcium oxalate but also some with calcium phosphate. The other 3 types include uric acid stones, struvite stones (from a preceding infection), and rarely, c ystine stones. When the stone breaks free and begins to move down the ureter (the narrow tube joining the kidney to the bladder) it often causes sharp back and side pain, often with nausea and vomit ing. When the stone reaches the bladder, the pain stops. Once in your bladder, the kidney st one may pass through the urethra (urinary opening) while you are urinating (which may cause pain to start again). Or, it may break into such small fragments that you don t notice it passing. Your kidney stone is still inside the kidney.There is no way to predict how long it will be before it breaks free and causes any symptoms. Most stones will pass on their own within a few hours to a few days (sometimes longer).You may notice a red, pink, or brown color to your urine. This is normal while passing a kidney stone. A large stone may not pass on its own and may require special procedures to remove it. These procedures include lithotripsy, [facility] uses ultrasound waves to break up the stone; ureteroscopy, which pushes a thin, basket- like instrument through the urethra and bladder and into the ureter to pull out the stone; a nd various types of direct surgery through the skin. Home care The following guidelines will help you care for yourself at home: Drink plenty of fluids. This increases urine flow and reduces the risk of further stone formation. Healthy adults (no heart/liver/kidney disease) who have had a kidney stone should drink 12, 8-ounce glasses of fluids per day. Most of this should be water. The goal is to p roduce 1.5 to 2 quarts of almost colorless urine per 24 hours. You should collect your urine in a container and then drain it through a strainer to col lect any stones or pieces of stones. Take these to your healthcare provider to help identify your specific type of stone to aid in future treatment and dietary changes. Try to stay as active as possible since this will help the stone pass. Don't stay in bed unless you have pain that prevents you from getting up. If you develop pain, you may take ibuprofen or naproxen for pain, unless another medicin e was prescribed. If you have chronic liver or kidney disease or ever had a stomach ulcer or GI bleeding, talk with your healthcare provider before using these medicines. Prevention Each year, there is a 5% to 10% chance that a new stone will form (50% chance over the next 5 to 7 years).The risk is higher if you have a family history of kidney stones or have ce rtain chronic illnesses such as hypertension, obesity, or diabetes.However, there are life style and dietary changes that you canmake to reduce the risk of a recurrence. Most kidney stones are made of calcium. The following is advice for preventing a recurrence of calcium stones. If you don t know the type of stone you have, follow this advice unt il the cause of your stone is determined. Things that help: The most important thing you can do is to drink plenty of fluids each day, as described above. Certain foods, such as wheat, rice, rye, barley and beans, contain phytate, a compound that may lower the risk of recurrence of any type of stone. Eat more fruits and vegetables (especially those high in potassium). Eat foods high in natural citrate like fruit and fruit juices (using low sugar). Low calcium contributes to the formation of calcium type kidney stones. Eat a normal dora cium diet and speak with your doctor if you are taking calcium supplements. It may be detrim ental to reduce your calcium intake. New research shows that eating calcium-rich and oxalate -rich foods together lowers your risk of stones by binding the minerals in the stomach and i ntestines before they can reach the kidneys. Limit salt intake to 2 grams (1 teaspoon) per day. Use limited amounts when cooking, and don t add salt at the table. Processed and canned foods are usually high in salt. Spinach, rhubarb, peanuts, cashews and almonds, grapefruit and grapefruit juice are all high oxalate foods and should be reduced, or eaten with calcium rich foods. These foods incl ude dairy, dark leafy greens, soy products, and calcium enriched foods. Reducing the amount of animal meat in your diet may lower your risk of uric acid stones. Don't have excess sugar (sucrose) and fructose (sweetener in many soft drinks) in your d iet. If you take vitamin C as a supplement, do not take more than 1,000 milligrams (mg) per d ay. A dietitian or your healthcare provider can provide you with specific details about diet adriana changes to prevent kidney stone recurrence. Follow-up care Follow up with your healthcare provider, or as advised. Talk with your healthcare provider about urine and blood tests to find out the cause of your stone. If you had an X-ray, CT scan, or other diagnostic test, you will be notified of any finding s that may affect your care. Call 911 Call 911 if you have any of these: Weakness, dizziness, or fainting When to seek medical advice Call your healthcare provider right away if any of the these occur: Severe sharp back or side pain Repeated vomiting or unable to keep down fluids Fever of 100.4F (38C) or higher, or as directed by your health care provider Blood (pink or red color) in your urine Foul smelling or cloudy urine Unable to pass urine for 8 hours or increasing bladder pressure Date Last Reviewed: 06/16/201619994575-2314 [employer]. [address] [place] [address], [place] [address]. All righ ts reserved. This information is not intended as a substitute for professional medical care. Always follow your healthcare professional's instructions. documented in this encounter Progress Notes Jet Chaney MD - 03/03/2018 4:30 PM PDTFormatting of this note might be different fr om the original. Subjective: Patient ID: Baudilio Schneider is a 37 y.o. female who is here today for Follow-up HPI She continues to have intermittent bilateral flank and upper abdominal pain. Typically wor se on right than left. Unchanged from last visit. Described as kind of like a throb. Wors e with laying on her side. Nothing makes it better - improves on its own. Rates 5-8/10. Separately she states her upper abdomen feels "inflamed" and bloated. Worse after eating c ertain foods (she is not sure which foods). Prilosec did not help in the past. She would l wolf to see GI again. She met with Dr Moore regarding her chronic left sided lower back pain. MRI ordered. He s tarted her on gabapentin - she is taking 300 mg once nightly as prescribed with plan to incr ease to 600 mg nightly this week. Her back pain is better. Patient's medications, allergies, past medical, surgical, social and family histories were obtained and reviewed as appropriate. Review of Systems No fever, weight loss, anorexia, dysphagia, vomiting, dysuria, hematuria, melena, hematoche florentin Objective: BP 134/86 | Pulse 78 | Temp 36.6 C (97.8 F) (Temporal) | Resp 20 | Ht 1.575 m (5' 2 .01") | Wt 90.5 kg (199 lb 8.3 oz) | SpO2 100% | BMI 36.48 kg/m Physical Exam Constitutional: Very pleasant, obese, NAD Eyes: No scleral icterus. Cardiovascular: Normal rate, regular rhythm, normal heart sounds and intact distal pulses. Exam reveals no gallop and no friction rub. No murmur heard. Pulmonary/Chest: Breath sounds normal. No respiratory distress. She has no wheezes. She has no rales. Abdominal: Soft. She exhibits no distension and no mass. Tenderness: mild diffuse upper abd tenderness. There is no rebound and no guarding. Musculoskeletal: Mild diffuse flank and lower back tenderness Appointment on 02/07/2018 Component Date Value Ref Range Status Glucose, Fasting 02/07/2018 100 74 - 110 mg/dL Final Hemoglobin A1c 02/07/2018 5.9 4.3 - 6.0 % Final Estimated Average Glucose 02/07/2018 123 mg/dL Final CT Abd Pelvis wo Contrast FINDINGS: LUNG BASE: Visualized lung bases are clear. Heart is normal in size. No evidence of pleural effusion. Question a tiny 3 mm round left nodule within the right middle lobe (series 2, image 3). HEPATOBILIARY: The liver is mildly enlarged and demonstrates normal parenchyma. Gallbladder is absent. No evidence of intrahepatic or extrahepatic biliary ductal dilatation. SPLEEN: Normal parenchyma. No evidence of mass or splenomegaly. PANCREASE: Normal parenchyma. No evidence of pancreatic ductal dilation. ADRENAL GLANDS: No evidence of nodule, mass or suspicious thickening. KIDNEYS: Multiple nonobstructive bilateral small 1-3 mm renal calculi are present. No evidence of hydronephrosis or hydroureter. No suspicious renal mass identified on this noncontrast CT. Visualized portions of both ureters appear normal. BOWEL: The stomach is normal. Imaged small bowel and colon demonstrate no acute findings. No evidence of dilatation to suggest obstruction or abnormal bowel wall thickening. VASCULATURE: Limited visualization of the venous and arterial structures show no gross abnormality within the confines of a noncontrast CT. LYMPH NODES: No enlarged lymph nodes are visualized within the omentum or retroperitoneum. PERITONEUM: There is no evidence for free fluid or free air. BLADDER: Unremarkable. REPRODUCTIVE: Uterus and adnexal structures are without evidence of gross abnormality. Intrauterine device is noted. Prominence of both ovaries with benign appearing likely small cystic lesions. SOFT TISSUES: Body wall soft tissue structures are normal. BONES: There are no acute osseous abnormalities. IMPRESSION - 1. Bilateral nonobstructive nephrolithiasis. 2. Previous identified 3 mm groundglass nodule in the right middle lobe is unchanged since 2014, benign with no further follow-up imaging needed. 3. Mild/borderline hepatomegaly. Assessment & Plan: 1. Upper abdominal pain: Suspect multifactorial - muscular and gastritis. I do not think the kidney stones are contributing to symptoms - Weight loss, pantoprazole - She would like to see GI - * [facility] - AMB Referral 2. Hodges's esophagus without dysplasia, gastritis: EGD 08/2016 with tiny focus of intest inal metaplasia. Omeprazole did not help dyspepsia symptoms.. No red flag s/s - Weight loss, pantoprazole - She would like to see GI - pantoprazole (PROTONIX) 40 mg tablet; Take 1 tablet by mouth every morning (before breakf ast). To help stomach inflammation Dispense: 30 tablet; Refill: 5 - * [facility] - AMB Referral 3. Nephrolithiasis: - Educated on hydration, prevention, warning signs 5. Chronic left-sided low back pain without sciatica: Dr Moore's note reviewed. Greatly ap preciate his assistance - Gabapentin titration and MRI per Dr Moore - COntinue nortriptyline 6. Impaired fasting glucose: Improved - Congratulated on efforts. Weight loss. Return in about 3 months (around 06/03/2018). Prashanth Chaney MD Roxana Pierre LP N - 03/03/2018 4:30 PM PDTPatient is here for a follow up documented in this encounter Plan of Treatment + + +--------+ + + | Name | Type | Priori | Associated Diagnoses | Order Schedule | | | | ty | | | + + +--------+ + + | * [facility] [place] | Outpatient | Routin | Upper abdominal | Ordered: 03/03/2018 | | Gastroenterology - | Referral | [...] | + +--------+ + + + | PATHOLOGY - EXTERNAL | | 01/27/2018 | | Results for this | | SCAN | | 12:00 AM | | procedure are in the | | | | PDT | | results section. | + +--------+ + + + documented in this encounter Results PATHOLOGY - EXTERNAL SCAN (01/27/2018 12:00 AM PDT) + + + | Narrative | Performed At | + + + | Ordered by an | | | unspecified provider. | | + + + documented in this encounter Visit Diagnoses + + | Diagnosis | + + | Upper abdominal pain - Primary Abdominal pain, other specified site | + + | Hodges's esophagus without dysplasia Hodges's esophagus | + + | Nephrolithiasis Calculus of kidney | + + | Chronic gastritis without bleeding, unspecified gastritis type | + + | Chronic left-sided low back pain without sciatica | + + | Impaired fasting glucose | + + documented in this encounter
--- OUTSIDE RECORDS SUMMARY | ~2020-05-24 | XMS | Encounter Summary ---
Demographics + + + | Address | [facility] | | | [place] [address] | + + + | Home Phone [...] | Organization | [facility] | [...] [place], [place] | | | | | [address] | | + + + + + | Amy Schneider | ECON | [address] | | | | | [place], [place] | | | | | [address] | | + + + + + | Alisha Schneider | ECON | Unknown | | + + + + + Care Team Providers + +------+ + | Care Marine Photographer Name | Role | Phone | + +------+ + | Jet Chaney MD | PCP | | + +------+ + Reason for Referral Service/Procedure (Routine) +--------+ + + + + + | Status | Reason | Specialty | Diagnoses / | Referred By | Referred To | | | | | Procedures | Contact | Contact | +--------+ + + + + + | Closed | Specialty | Diabetes | Diagnoses | Ritu | Nancy | | | Services | Educator / | Prediabetes | Jet Dempsey MD | Diabetes | | | Required | Diabetes | | [address] | Education | | | | Services | | [address] [place] | [address] | | | | | | [place], [place] | [facility], | | | | | | [address] | [place] | | | | | | Phone: | [address] | | | | | | [phone] | Phone: | | | | | | Fax: | [phone] | | | | | | [phone] | Fax: | | | | | | | [phone] | +--------+ + + + + + Reason for Visit +---------+--------+ + | Reason | Onset | Comments | | | Date | | +---------+--------+ + | Results | 11/13/ | | | | 2019 | | +---------+--------+ + Encounter Details +--------+ + + + + | Date | Type | Department | Care Team | Description | +--------+ + + + + | 11/13/ | Telephone | [facility] [place] [facility] | Jet Chaney, | Results | | 2019 | | [facility] | [address] | | | | | [address] | [place] | | | | | [place] | [id number] | | | | | [address] | | | | | | [phone] | | | +--------+ + + + [...] this encounter Miscellaneous Notes Telephone Encounter - Fanny Velázquez, Entry Level Drafter - 11/13/2018 1:45 PM PSTI spoke with patient, message was given patient verbalized understanding and agreement. P atient informed of the referral process. elephone Encounter - Jet Chaney MD - 11/13/2018 12:34 PM PSTReferral to predia betes program signed (diabetes prevention in Epic). Thyroid adjustments typically take affect within 6 weeks. Thanks, Prashanth Chaney MD elephone Encounter - Roxana Lucio LPN - 11/13/2018 12:02 PM PSTAttempted to do the referral to the pre shannan betes program but unable to find it. Auth team did not know what it was either.Electronical ly signed by Roxana Lucio LPN at 11/13/2018 12:03 PM PSTTelephone Encounter - Mary chavez, Fanny Garcia, Entry Level Drafter - 11/13/2018 9:56 AM PSTI called patient, message was given, patient verbalized understanding and agreement. 1. Patient stated that she saw Dr. Stern in October 15 (6 days after here visit here) a nd the next visit will be on December 04. Dr. Stern increased her dose from 88 mcg to 100 mcg in the morning. Patient wants to know how many days does it take for the medication to work properly in her body, informed that we will call her back with the answer. 2. Patient agreed to be referred for the prediabetes program, thank you. Electronically sig chemo by Fanny Bobo, Entry Level Drafter at 11/13/2018 10:31 AM PSTTelephone Enc ounter - Roxana Lucio LPN - 11/13/2018 8:07 AM PST----- Message from Jet Chaney MD sent at 11/12/2018 16:26 PST ----- Will you please let Sochil know that: 1. Her thyroid level is just a touch high. Will you please make sure that the TSH is sent to Dr Stern and make sure she has follow-up with him to address this. 2. Her cholesterol is outstanding. 3. Her electrolytes, kidney function and liver enzymes are normal. 4. Her blood sugars are creeping back up and are VERY close to diabetes range. An A1c of 6.5% or above is diabetes range. Hers is 6.4%. [facility] has a great prediabetes program - if she is interested, I recommend we place a referral. She should follow-up with us in March as scheduled, but sooner if she has any questions or c oncerns. Thanks, Prashanth Chaney MD documented in this encounter Plan of Treatment + + +--------+ + + | Name | Type | Priori | Associated Diagnoses | Order Schedule | | | | ty | | | + + +--------+ + + | * [facility] | Outpatient | Routin | Prediabetes | 1 Occurrences | | Prevention - AMB | Referral | e | | starting 11/13/2018 | | Referral | | | | until 11/13/2019 | + + +--------+ + + documented as of this encounter Visit Diagnoses + + | Diagnosis | + + | Prediabetes - Primary Other abnormal glucose | + + documented in this encounter"
--- OUTSIDE RECORDS SUMMARY | ~2020-05-24 | XMS | Encounter Summary ---
Demographics + + + | Address | [facility] | | | [place] [address] | + + + | Home Phone [...] Organization | [facility] [...] [place], [place] | | | | | [address] | | + + + + + | Amy Schneider | ECON | [address] | | | | | [place], [place] | | | | | [address] | | + + + + + | Alisha Schneider | ECON | Unknown | | + + + + + Care Team Providers + +------+ + | Care Semiconductor Lab Technician Name | Role | Phone | + +------+ + | Jet Chaney MD | PCP | | + +------+ + Encounter Details +--------+ + + + + | Date | Type | Department | Care Team | Description | +--------+ + + + + | 01/10/ | Imaging | [facility] [place] [facility] | Med Hu, | Kidney stone; | | 2018 | Exam | [place] [address] | 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 | | | | | Abdominal pain, | | | | | | generalized | | + +--------+ + + + documented in this encounter Results XR Abdomen AP (01/10/2019 10:15 AM PDT) [...] + | Kranthi, Rad Results In - 01/10/2019 8:33 PM PDT [...] | Abdominal pain, generalized | + + documented in this encounter"
--- OUTSIDE RECORDS SUMMARY | ~2020-05-24 | XMS | Encounter Summary ---
Demographics + + + | Address | [facility] | | | [place] [address] | + + + | Home Phone [...] | Organization | [facility] | | [...] [place], [place] | | | | | [address] | | + + + + + | Amy Schneider | ECON | [address] | | | | | [place], [place] | | | | | [address] | | + + + + + | Alisha Schneider | ECON | Unknown | | + + + + + Care Team Providers + +------+ + | Care Foreign Language Interpreter Name | Role | Phone | + +------+ + PCP | Unavailable | + +------+ + Encounter Details +--------+ + + + + | Date | Type | Department | Care Team | Description | +--------+ + + + + | 08/05/ | Hospital | [facility] | | | | 2001 | Encounter | [facility] | | | | | | [address] | | | | | | [place] | | | | | | [address] | | | | | | [phone] | | | +--------+ + + + [...]
--- OUTSIDE RECORDS SUMMARY | ~2020-05-24 | XMS | Encounter Summary ---
Demographics + + + | Address | [facility] | | | [place] [address] | + + + | Home Phone | | + + + | Preferred Language | Unknown | + + + | Marital Status | Single | + + + | Bahai Affiliation | 1041 | + + + | Race | Unknown | + + + | Ethnic Group | or | + + + Author + + + | Author | [facility] | | | and [place] | + + + | Organization | [facility] | | [...] [place], [place] | | | | | [address] | | + + + + + | Amy Schneider | ECON | [address] | | | | | [place], [place] | | | | | [address] | | + + + + + | Alisha Schneider | ECON | Unknown | | + + + + + Care Team Providers + +------+ + | Care Founder Ceo & President Name | Role | Phone | + +------+ + | Jet Chaney MD | PCP | | + +------+ + Reason for Visit +---------+--------+ + | Reason | Onset | Comments | | | Date | | +---------+--------+ + | Results | 03/02/ | | | | 2014 | | +---------+--------+ + Encounter Details +--------+ + + + + | Date | Type | Department | Care Team | Description | +--------+ + + + + | 03/02/ | Telephone | [facility] [place] [facility] | Jet Chaney, | Results | | 2013 | | MEDICINE [place] | [address] | | | | | [address] | [place] | | | | | [place] | [address] | | | | | [address] | | | | | | [phone] | | | +--------+ + + + [...] Telephone Encounter - Kemi Williamson LPN - 03/02/2014 4:42 PM PDTCalled and notified asael jones. elephone Enco deb - Jet Chaney MD - 03/02/2014 3:08 PM PDTWill you please let Sochil know that h er urine test was normal. No signs of infection. Thanks, Prashanth Chaney MD documented in this e ncounter Plan of Treatment Not on filedocumented as of this encounter Visit Diagnoses Not on filedocumented in this encounter"
--- OUTSIDE RECORDS SUMMARY | ~2020-05-24 | XMS | Encounter Summary ---
Demographics + + + | Address | [facility] | | | [place] [address] | + + + | Home Phone [...] Organization | [facility] | | | and [place] | [...] [place], [place] | | | | | [address] | | + + + + + | Amy Schneider | ECON | [address] | | | | | [place], [place] | | | | | [address] | | + + + + + | Alisha Schneider | ECON | Unknown | | + + + + + Care Team Providers + +------+ + | Care Acid Purification Equipment Operator Name | Role | Phone | + +------+ + | Jet Chaney MD | PCP | | + +------+ + Reason for Visit + +--------+ + | Reason | Onset | Comments | | | Date | | + +--------+ + | Appointment | 10/06/ | | | | 2012 | | + +--------+ + Encounter Details +--------+ + + + + | Date | Type | Department | Care Team | Description | +--------+ + + + + | 10/06/ | Telephone | [facility] | Jet Chaney, | Appointment | | 2012 | | MEDICINE [place] | [address] | | | | | [address] | [place] | | | | | [place] | [address] | | | | | [address] | | | | | | [phone] | | | +--------+ + + + [...] this encounter Miscellaneous Notes Telephone Encounter - Pricila Santillan RN - 10/06/2012 4:42 PM PSTPatient called back. Jada carey states she can only have ultrasound on Saturday because that is her day off. Transferred her to Radiology to reschedule appointment. Let her know she will need to be fasting when she d oes this. elephone En counter - Elis Nichols - 10/06/2012 4:31 PM PSTCalled number requested and went to vo ice mail. I left a message to return my call at [phone] elephone Encounter - Pricila Santillan RN - 10/06/2012 4 :14 PM PSTPatient called to see if ultrasound was scheduled yet. I was unable to contact Latrice isabel and had trouble with my phone so told her I would call her back. Appointment is scheduled for 10/08/12 at 8:00am with a 7:30am check-in. She needs to fast for 8 hours. Patient would like call back on a different cell number because her phone isn't working. Please call [phone] with appointment details. Thank you. documented in this encounter Plan of Treatment Not on filedocumented as of this encounter Visit Diagnoses Not on filedocumented in this encounter"
--- OUTSIDE RECORDS SUMMARY | ~2020-05-24 | XMS | Encounter Summary ---
Demographics + + + | Address | [facility] | | | [place] [address] | + + + | Home Phone [...] Organization | [facility] | [...] [place], [place] | | | | | [address] | | + + + + + | Amy Schneider | ECON | [address] | | | | | [place], [place] | | | | | [address] | | + + + + + | Alisha Schneider | ECON | Unknown | | + + + + + Care Team Providers + +------+ + | Care Master Certified Rv Technician Name | Role | Phone | + +------+ + PCP | Unavailable | + +------+ + Encounter Details +--------+ + + + + | Date | Type | Department | Care Team | Description | +--------+ + + + + | 06/26/ | Hospital | [facility] | | | | 2001 | Encounter | MED CTR EMERGENCY | | | | | | [place] [address] | | | | | | [place] | | | | | | [address] | | | | | | [phone] | | | +--------+ + + + [...]
--- OUTSIDE RECORDS SUMMARY | ~2020-05-24 | XMS | Encounter Summary ---
Demographics + + + | Address | [facility] | | | [place] [address] | + + + | Home Phone [...] + | Organization | [facility] | [...] [place], [place] | | | | | [address] | | + + + + + | Amy Schneider | ECON | [address] | | | | | [place], [place] | | | | | [address] | | + + + + + | Alisha Schneider | ECON | Unknown | | + + + + + Care Team Providers + +------+ + | Care Junior Net Developer Name | Role | Phone | + +------+ + | Jet Chaney MD | PCP | | + +------+ + Reason for Visit + + + | Reason | Comments | + + + | Follow-up | | + + + | Abdominal Pain | | + + + Encounter Details +--------+---------+ + + + | Date | Type | Department | Care Team | Description | +--------+---------+ + + + | 01/24/ | Office | [facility] | Jet Chaney, | Flank pain (Primary | | 2018 | Visit | [facility] | [address] | Dx); Upper abdominal | | | | [address] | [place], [place] | pain; Constipation, | | | | [place], [place] | [address] | unspecified | | | | [address] | | constipation type | | | | [phone] | | | +--------+---------+ + + + [...] + + + | Blood Pressure | 136/88 | 01/24/2018 4:28 PM | | | | | PDT | | + + + + + | Pulse | 76 | 01/24/2018 4:28 PM | | | | | PDT | | + + + + + | Temperature | 36.9 C (98.5 F) | 01/24/2018 4:28 PM | | | | | PDT | | + + + + + | Respiratory Rate | 20 | 01/24/2018 4:28 PM | | | | | PDT | | + + + + + | Oxygen Saturation | 100% | 01/24/2018 4:28 PM | | | | | PDT | | + + + + + | Inhaled Oxygen | - | - | | | Concentration | | | | + + + + + | Weight | 91.3 kg (201 lb 4.5 | 01/24/2018 4:28 PM | | | | oz) | PDT | | + + + + + | Height | 157.5 cm (5' 2.01") | 01/24/2018 4:28 PM | | | | | PDT | | + + + + + | Body Mass Index | 36.81 | 01/24/2018 4:28 PM | | | | | PDT | | + + + + + documented in this encounter Patient Instructions Patient Instructions Jet Chaney MD - 01/24/2018 4:30 PM PDTIf you do not hear from our office by end of day Saturday to schedule a CT scan - please let us know. Increase the Miralax to 1 capful twice daily for the next 3 days. Use the bisacodyl as needed to have a daily bowel movement. If your bowel movements do not improve - please let us know. Flank Pain, Uncertain Cause The flank is the area between your upper abdomen and your back. Pain there is often caused by a problem with your kidneys. It might be a kidney infection or a kidney stone. Other caus es of flank pain include spinal arthritis, a pinched nerve from a back injury, or a back mus kenny strain or spasm. The cause of your flank pain is not certain. You may need other tests. Home care Follow these tips when caring for yourself at home: You may use acetaminophen or ibuprofen to control pain, unless your health care provider prescribed another medicine. If you have chronic liver or kidney disease, talk with your pr ovider before taking these medicines. Also talk with your provider first if you ve ever guillen d a stomach ulcer or GI bleeding. If the pain is coming from your muscles, you may get relief with ice or heat. During the first 2 days after the injury, put an ice pack on the painful area for 20 minutes every 2 t o 4 hours. This will reduce swelling and pain. A hot shower, hot bath, or heating pad works well for a muscle spasm. You can start with ice, then switch to heat after 2 days. You might find that alternating ice and heat works well. Use the method that feels the best to you. Follow-up care Follow up with your healthcare provider if your symptoms don t get better over the next f ew days. When to seek medical advice Call your healthcare provider right awayif any of these happen: Repeated vomiting Fever of 100.4F (38C) or higher, or as directed by your health care provider Flank pain that gets worse Pain that spreads to the front of your belly (abdomen) Dizziness, weakness, or fainting Blood in your urine Burning feeling when you urinate or the need to urinate often Pain in one of your legs that gets worse Numbness or weakness in a leg Date Last Reviewed: 06/16/201619993576-1256 [employer]. [address] [place] [address], [place] [address]. All righ ts reserved. This information is not intended as a substitute for professional medical care. Always follow your healthcare professional's instructions. documented in this encounter Progress Notes Jet Chaney MD - 01/24/2018 4:30 PM PDTFormatting of this note might be different fr om the original. Subjective: Patient ID: Baudilio Schenider is a 37 y.o. female here for abdominal pain. HPI She continues have bilateral upper abdominal pain and bilateral flank pain. Described as d ull, achy, and like a bruise. She feels full quickly. It does fluctuate in severity 4-04/25 . Nothing particularly makes it worse or better. But it is hard to lay on right side. She is taking miralax 1 capful daily. No improvement in constipation. She is having a BM every 2-3 days. She sometimes has to strain. Stools are hard. No fever, N/V, heartburn, melena, hematochezia, hematuria, dysuria. CT Kidney stone is still pending insurance approval. Patient's medications, allergies, past medical, surgical, social and family histories were obtained and reviewed as appropriate. Review of Systems Objective: BP 136/88 | Pulse 76 | Temp 36.9 C (98.5 F) (Temporal) | Resp 20 | Ht 1.575 m (5' 2 .01") | Wt 91.3 kg (201 lb 4.5 oz) | SpO2 100% | BMI 36.81 kg/m Physical Exam Constitutional: Very pleasant, obese, NAD Pulmonary/Chest: She exhibits no tenderness. Abdominal: Soft. She exhibits no distension and no mass. There is no tenderness. There is n o rebound and no guarding. Mild bilateral CVA tenderness Musculoskeletal: No spinal tendnerness AXR Moderate retained stool. No evidence for gastrointestinal tract obstruction. Suspect nephrolithiasis. Assessment: Baudilio was seen today for follow-up and abdominal pain. Diagnoses and all orders for this visit: Flank pain, upper abdominal pain: Constipation vs kidney stones vs gastirits vs musculoske letal vs other. No concerning systemic s/s - Urine dip - Will work to get CT urogram approved Constipation, unspecified constipation type - Increase miralax to twice daily - Bisacodyl prn - bisacodyl (BISACODYL) 5 mg EC tablet; Take 1 tablet by mouth Daily as needed for Cons tipation. Prashanth Chaney MD haRoxana gilbert LP N - 01/24/2018 4:30 PM PDTPatient is here in follow up. States that the abdominal pain is a bout the same documen tonny in this encounter Miscellaneous Notes Addendum Note - Roxana Castle LPN - 01/24/2018 4:30 PM PDT Addended by: ROXANA CASTLE on: 01/24/2018 17:18 Modules accepted: Orders documented in thi s encounter Plan of Treatment Not on filedocumented as of this encounter Procedures + +--------+ + + + | Procedure Name | Priori | Date/Time | Associated Diagnosis | Comments | | | ty | | | | + +--------+ + + + | POCT URINALYSIS, | Routin | 01/24/2018 | Flank pain | Results for this | | AUTO WITH CONF | e | 5:17 PM | | procedure are in the | | | | PDT | | results section. | + +--------+ + + + documented in this encounter Results POCT Urinalysis Dipstick Automated (01/24/2018 5:17 PM PDT) + + + + + + | Component | Value | Ref Range | Performed | Pathologist | | | | | At | Signature | + + + + + + | Color, UA, | Yellow | Yellow, Light | | | | POC | | Yellow | | | + + + + + + | Clarity, | Clear | | | | | UA, POC | | | | | + + + + + + | Glucose, | Negative | Negative | | | [...] + + + + | Specific | 1.020 | 1.001 - 1.030 | | | | [place], | | | | | | UA, [...] + | Diagnosis | + + | Flank pain - Primary Abdominal pain, unspecified site | + + | Upper abdominal pain Abdominal pain, other specified site | + + | Constipation, unspecified constipation type | + + documented in this encounter
--- OUTSIDE RECORDS SUMMARY | ~2020-05-24 | XMS | Encounter Summary ---
Demographics + + + | Address | [address] [facility] | | | [place] [address] | + + + | Home Phone | | + + + | Preferred Language | Unknown | + + + | Marital Status | Single | + + + | Worship Affiliation | 1041 | + + + | Race | Unknown | + + + | Ethnic Group | or | + + + Author + + + | Author | [facility] | | | and [place] | + + + | Organization | [facility] | | [...] [place], [place] | | | | | [address] | | + + + + + | Amy Schneider | ECON | [address] | | | | | [place], [place] | | | | | [address] | | + + + + + | Alisha Schneider | ECON | Unknown | | + + + + + Care Team Providers + +------+ + | Care Drinking Water Technician Name | Role | Phone | [...] + + | 09/25/ | Hospital | [facility] | [place] MD | | | 2019 | Encounter | MED CTR NUCLEAR | [address], [place] | | | | | MEDICINE [address] [place], [place] | | | | | [place], | [address] | | | | | [place] [address] | | | | | | [phone] | | | +--------+ + + + [...]
--- OUTSIDE RECORDS SUMMARY | ~2020-05-24 | XMS | Encounter Summary ---
Demographics + + + | Address | [facility] | | | [place] [address] | + + + | Home Phone [...] | Organization | [facility] | [...] [place], [place] | | | | | [address] | | + + + + + | Amy Schneider | ECON | [address] | | | | | [place], [place] | | | | | [address] | | + + + + + | Alisha Schneider | ECON | Unknown | | + + + + + Care Team Providers + +------+ + | Care Lamp Inspector Name | Role | Phone | + +------+ + | Jet Chaney MD | PCP | | + +------+ + Encounter Details +--------+ + + + + | Date | Type | Department | Care Team | Description | +--------+ + + + + | 09/21/ | Hospital | [facility] | [place] MD | | | 2013 | Encounter | MED CTR MP INTRA OP | [address], [place] | | | | | [address] | [address] [place] | | | | | [place] | [address] | | | | | [address] | | | | | | [phone] | | | +--------+ + + + [...] documented as of this encounter Miscellaneous Notes Op Note - Hill [place] MD - 09/21/2013 10:27 AM [place], [place] [id number] Patient Name: PAVITHRA SCHNEIDER Provider: [place] MD Unit #: [id number] Location: [facility] #: [id number] : 1980 Gastroenterology Patient Name: Pavithra Schneider Procedure Date: 09/21/2013 10:27 AM Date of : 1980 Admit Type: Outpatient Age: 33 Room: Endo Room 1 Gender: Female Note Status: Finalized Attending MD: [place] MD Procedure: Upper GI endoscopy Indications: Epigastric abdominal pain, Suspected esophageal reflux, For therapy of esophageal reflux Providers: [place] MD, Isabela Schuster RN, Carolina Ramírez, Floater Operator Referring MD: Jet Chaney MD (Referring MD) Medicines: Midazolam 1 mg IV, Meperidine 100 mg IV, Cetacaine spray, Oxygen 4 liters/min nasocannula Complications: No immediate complications. Estimated blood loss: Minimal. Procedure : Pre-Anesthesia Assessment: - Prior to the procedure, a History and Physical was performed, and patient medications, allergies and sensitivities were reviewed. The patient's tolerance of previous anesthesia was reviewed. - Prior to the procedure, a History and Physical was performed, and patient medications and allergies were reviewed. The patient is competent. The risks and benefits of the procedure and the sedation options and risks were discussed with the patient. All questions were answered and informed consent was obtained. Patient identification and proposed procedure were verified by the physician, the nurse and the sugarcane research technician in the endoscopy suite. Mental Status Examination: normal. Airway Examination: normal oropharyngeal airway and neck mobility and Mallampati Class II (the uvula but not tonsillar pillars visualized). Respiratory Examination: CV Examination: Prophylactic Antibiotics: The patient does not require prophylactic antibiotics. Prior Anticoagulants: The patient has taken no previous anticoagulant or antiplatelet agents. ASA Grade Assessment: II - A patient with mild systemic disease. After reviewing the risks and benefits, the patient was deemed in satisfactory condition to undergo the procedure. The anesthesia plan was to use moderate sedation / analgesia (conscious sedation). Immediately prior to administration of medications, the patient was re-assessed for adequacy to receive sedatives. The heart rate, respiratory rate, oxygen saturations, blood pressure, adequacy of pulmonary ventilation, and response to care were monitored throughout the procedure. The physical status of the patient was re-assessed after the procedure. - After reviewing the risks and benefits, the patient was deemed in satisfactory condition to undergo the procedure. - Immediately prior to administration of medications, the patient was re-assessed for adequacy to receive sedatives. - The heart rate, respiratory rate, oxygen saturations, blood pressure, adequacy of pulmonary ventilation, and response to care were monitored throughout the procedure. - The physical status of the patient was re-assessed after the procedure. After obtaining informed consent, the endoscope was passed under direct vision. Throughout the procedure, the patient's blood pressure, pulse, and oxygen saturations were monitored continuously. The endoscope was introduced through the mouth, and advanced to the third part of duodenum. The upper GI endoscopy was accomplished without difficulty. The patient tolerated the procedure well. Findings: The cricopharyngeus, upper third of the esophagus, middle third of the esophagus and lower third of the esophagus were normal. The Z-line was irregular and was found 38 cm from the incisors. Biopsies were taken with a cold forceps for histology. Verification of patient identification for the specimen was done. Estimated blood loss was minimal. A weakened lower esophageal sphincter was found. Diffuse mild inflammation was found on the greater curvature of the stomach and in the gastric antrum. Biopsies were taken with a cold forceps for Helicobacter pylori testing using CLOtest. Verification of patient identification for the specimen was done. Estimated blood loss was minimal. The ampulla, duodenal bulb, first part of the duodenum, 2nd part of the duodenum and 3rd part of the duodenum were normal. The retroflexed view confirmed previous findings, Impression: - Normal cricopharyngeus, upper third of esophagus, middle third of esophagus and lower third of esophagus. - Z-line irregular, 38 cm from the incisors. Biopsied. - Weakened lower esophageal sphincter. - Gastritis. Biopsied. - Normal ampulla, duodenal bulb, first part of the duodenum, 2nd part of the duodenum and 3rd part of the duodenum. - The retroflexed view confirmed previous findings, Recommendation: - Discharge patient to home (ambulatory). - Return to previous diet today. - Follow an antireflux regimen indefinitely. - Continue present medications. - Use Prilosec (omeprazole) 20 mg PO BID. - Await pathology results. - Return to primary care physician as previously scheduled. - Telephone GI clinic for pathology results in 1 week. [place] MD 09/21/2013 10:57 AM This report has been signed electronically. Number of Addenda: 0 Note Initiated On: 09/21/2013 10:27 AM [facility], [address] [place] [address] Hill [place] MD 1057 documented in this e ncounter Plan of Treatment Not on filedocumented as of this encounter Procedures + +--------+ + + + | Procedure Name | Priori | Date/Time | Associated Diagnosis | Comments | | | ty | | | | + +--------+ + + + | HELICOBACTER PYLORI | Routin | 09/21/2013 | | Results for this | | BIOPSY | e | 1:00 PM | | procedure are in the | | | | PST | | results section. | + +--------+ + + + | HELICOBACTER PYLORI | Routin | 09/21/2013 | | Results for this | | BIOPSY | e | 9:15 AM | | procedure are in the | | | | PST | | results section. | + +--------+ + + + documented in this encounter Results Helicobactor pylori Biopsy (09/21/2013 1:00 PM PST) + + + + + + | Component | Value | Ref Range | Performed | Pathologist | | | | | At | Signature | + + + + + + | GASTRIC | Negative for Urease | | [facility] | | | [facility] | | | [facility] | | | UREASE TEST | | | [facility]ICAL | | | [...] + | [facility] | [address] | [place], [place] | [phone] | | [facility] | | [address] | | | - LABORATORY | | | | + + + + + | [facility] | [address] | [place], [place] | | | [facility] | | [address] | | | - LABORATORY | | | | + + + + + Helicobactor pylori Biopsy (09/21/2013 9:15 AM PST) + + + + + + | Component | Value | Ref Range | Performed | Pathologist | | | | | At | Signature | + + + + + + | GASTRIC | H. P[facility]I BIOPSY: | | [facility] | | | BIOPSY | Negative for Urease | | [facility] | | | UREASE TEST | | | MEDICAL | | | | | | CENTER - | | | | | | LABORATORY | | + + + + + + + + | Specimen | + + | Soft tissue sample | | (specimen) - Other | + + + + + | Narrative | Performed At | + + + | Collect By: Nurse | [facility] | | | [facility] | | [facility] | | | - LABORATORY | + + + + + + + + | Performing | Address | City/State/Zipcode | Phone Number | | Organization | | | | + + + + + | [facility] | [address] | [place], [place] | [phone] | | [facility] | | [address] | | | - LABORATORY | | | | + + + + + | [facility] | [address] | [place], [place] | | | [facility] | | [address] | | | - LABORATORY | | | | + + + + + documented in this encounter Visit Diagnoses Not on filedocumented in this encounter"
--- OUTSIDE RECORDS SUMMARY | ~2020-05-24 | XMS | Encounter Summary ---
Demographics + + + | Address | [facility] | | | [place] [address] | + + + | Home Phone [...] | [facility] [address] | [...] [place], [place] | | | | | [address] | | + + + + + | Amy Schneider | ECON | [address] | | | | | [place], [place] | | | | | [address] | | + + + + + | Alisha Schneider | ECON | Unknown | | + + + + + Care Team Providers + +------+ + | Care Trawl Net Maker Name | Role | Phone | [...] | | bloating | | [address], | | | | | Constipation | | [address] | | | | | , | | [place], | | | | | unspecified | | [place] [address] | | | | | constipation | | Phone: | | | | | type | | [phone] | | | | | Procedures | | Fax: | | | | | [place] | | [phone] | | | | | COLONOSCOPY | | | | | | | FLX DX | | | | | | | W/COLLJ SPEC | | | | | | | WHEN PFRMD | | | | | | | NC | | | | | | | COLONOSCOPY | | | | | | | W/BIOPSY | | | | | | | SINGLE/MULTI | | | | | | | PLE NC | | | | | | | [...] Description | +--------+---------+ + + + | 04/02/ | Surgery | [facility] | Hill Montana MD | COLONOSCOPY | | 2019 | | MED CTR MP INTRA OP | [address], [address] | | | | | [address] | [address] [place] | | | | | [place] | [address] | | | | | [address] | | | | | | [phone] | | | +--------+---------+ + + + [...] | | 19 | 9 | | (NULYTELY) 420 g | | | | | [...] 62 O2 sat 100 blood pressure 145/96 [facility] CenterLili[facility] soriaJULIO CP - 03/16/2019 9:00 AM PDTFormatting of thi [...] help in the short term, but no joint terminal attack controller relief. Denies family history of colon cancer. [...] biopsied, pathology negative - Dr Montana at [facility] INTRAUTERINE DEVICE INSERTION 07/12/2015 Mirena - Dr Kaur at [facility] TONSILLECTOMY 11/01/2009 chronic tonsillitis, severely hypertrophic tonsils with upper airway obstruction - Dr Farhat thompson at [facility] UPPER GASTROINTESTINAL ENDOSCOPY N/A 08/28/2016 Procedure: EGD; Surgeon: Hill Montana MD; Location: [facility] UPPER GASTROINTESTINAL ENDOSCOPY N/A 08/05/2018 Procedure: EGD; Surgeon: Hill Montana MD; Location: [facility] Family History Problem [...] 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 Your doctor [...] | [facility] | | GastroenterologyPatient Name: Baudilio Powerroceddeyanira Date: 04/02/2019 | PROVATION | | 10:00 AMMRN: [id number] #: [id number] of : | | | 1980Admit Type: AmbulatoryAge: 38Room: Endo Room 1Gender: | | | FemaleNote Status: FinalizedAttending MD: Hill Montana , | | | MDProcedure: ColonoscopyIndications: Generalized | | | abdominal pain, Slow transit constipationProviders: Hill | | | Delroy Montana MD, Greta Pham RN, Rik Das, | | | RN, Alisha [...] the nurse | | | and the slot technician in the endoscopy suite. Mental Status [...] AMScope Out: 10:21:46 AM | | | [facility], [address] [place] [address] | | | [address] | | | instructions were provided to [...] |Scope Out: 10:21:46 AM | | | [facility], [address] [place] [address] | | | [address] | | + + -+ + +---------+ [...] | 1.010, 1.015, | | | | [place], | | 1.020, 1.025 | | | | POC | | | | | + + + + + + | Lot Number | [id number] | | | | + + + [...] mL/hr, Intravenous, | | | CONTINUOUS, Starting Karen 04/02/19 | | | at 1015, Pre-op [...]
--- OUTSIDE RECORDS SUMMARY | ~2020-05-24 | XMS | Encounter Summary ---
Demographics + + + | Address | [facility] | | | [place] [address] | + + + | Home Phone [...] + + + | Author | [facility] | | | and [place] | + + + | Organization | [facility] | | [...] [place], [place] | | | | | [address] | | + + + + + | Amy Schneider | ECON | [address] | | | | | [place], [place] | | | | | [address] | | + + + + + | Alisha Schneider | ECON | Unknown | | + + + + + Care Team Providers + +------+ + | Care Clinical Support Tech Name | Role | Phone | + +------+ + | Jet Chaney MD | PCP | | + +------+ + Encounter Details +--------+ + + + + | Date | Type | Department | Care Team | Description | +--------+ + + + + | 07/23/ | Hospital | [facility] | Jet Chaney, | Kidney lesion, | | 2019 | Encounter | MED CTR ULTRASOUND | [address] | soboba, left | | | | [address] [place] | [place], [place] | | | | | [place], [place] | [address] | | | | | [address] | | | | | | [phone] | | | +--------+ + + + [...] | + +--------+ + + + | RENAL COMPLETE | Routin | 07/23/2019 | Kidney lesion, | Results for this | | | e | 10:10 AM | soboba, left | procedure are in the | | | | PST | | results section. | + +--------+ + + + documented in this encounter Results US Renal Complete (07/23/2019 10:10 AM PST) [...] | | left kidney N28.9 kidney lesion, soboba left. COMPARISON: | | | 01/22/2019 PROTOCOL: [...] focus on left kidney N28.9 kidney lesion, soboba left. | | | | COMPARISON: 01/22/2019 [...] | Diagnosis | + + | Kidney lesion, soboba, left Unspecified disorder of kidney and ureter | + + documented in this encounter"
--- OUTSIDE RECORDS SUMMARY | ~2020-05-24 | XMS | Encounter Summary ---
Demographics + + + | Address | [facility] | | | [place] [address] | + + + | Home Phone | | + + + | Preferred Language | Unknown | + + + | Marital Status | Single | + + + | Mosque Affiliation | 1041 | + + + | Race | Unknown | + + + | Ethnic Group | or | + + + Author + + + | Author | [facility] | | | and [place] | + + + | Organization | [facility] | | [...] [place], [place] | | | | | [address] | | + + + + + | Amy Schneider | ECON | [address] | | | | | [place], [place] | | | | | [address] | | + + + + + | Alisha Schneider | ECON | Unknown | | + + + + + Care Team Providers + +------+ + | Care Pcb Designer Name | Role | Phone | + +------+ + PCP | Unavailable | + +------+ + Encounter Details +--------+ + + + + | Date | Type | Department | Care Team | Description | +--------+ + + + + | 03/17/ | Hospital | [facility] | | | | 2003 | Encounter | MED CTR EMERGENCY | | | | | | [place] [address] | | | | | | [place] | | | | | | [address] | | | | | | [phone] | | | +--------+ + + + [...]
--- OUTSIDE RECORDS SUMMARY | ~2020-05-24 | XMS | Encounter Summary ---
Demographics + + + | Address | [facility] | | | [place] [address] | + + + | Home Phone [...] | Organization | [facility] [...] [place], [place] | | | | | [address] | | + + + + + | Amy Schneider | ECON | [address] | | | | | [place], [place] | | | | | [address] | | + + + + + | Alisha Schneider | ECON | Unknown | | + + + + + Care Team Providers + +------+ + | Care Cold Rolling Supervisor Name | Role | Phone | + +------+ + | Jet Chaney MD | PCP | | + +------+ + Reason for Visit +---------+--------+ + | Reason | Onset | Comments | | | Date | | +---------+--------+ + | Bloated | 01/14/ | needs f/u appt | | | 2018 | | +---------+--------+ + Encounter Details +--------+ + + + + | Date | Type | Department | Care Team | Description | +--------+ + + + + | 01/14/ | Telephone | [facility] [place] | Hill Montana MD | Wendy (needs f/u | | 2018 | | GASTROENTEROLOGY | [address], [address] | appt) | | | | [address] | [address] [place], [place] | | | | | [address] [place], [place] | [address] | | | | | [address] | | | | | | [phone] | | | +--------+ + + + [...] Telephone Encounter - Fifi Zimmerman RN - 01/14/2019 1:36 PM PDTPatient calls korina owens she continues to have abdominal bloating. She tried the Amitiza for a month and she didn't see much improvement. She will make an appointment with Amna to discuss her ongoing abdomi nal bloating and constipation. Dr. Montana had mentioned doing MR enterography if abdominal s ymptoms continued but we have not seen patient this year. documented in this encounter Plan of Treatment Not on filedocumented as of this encounter Visit Diagnoses Not on filedocumented in this encounter"
--- OUTSIDE RECORDS SUMMARY | ~2020-05-24 | XMS | Encounter Summary ---
Demographics + + + | Address | [facility] | | | [place] [address] | + + + | Home Phone [...] | Organization | [facility] | | | and [...] [place], [place] | | | | | [address] | | + + + + + | Amy Schneider | ECON | [address] | | | | | [place], [place] | | | | | [address] | | + + + + + | Alisha Schneider | ECON | Unknown | | + + + + + Care Team Providers + +------+ + | Care Claims Configuration Analyst Name | Role | Phone | + +------+ + | Jet Chaney MD | PCP | | + +------+ + Reason for Visit + + + | Reason | Comments | + + + | Follow-up(Procedure) | Colon patel RIVERA 04/02/2019 | + + + | Constipation | | + + + Evaluate & Treat (Routine) +--------+ + + + + + | Status | Reason | Specialty | Diagnoses / | Referred By | Referred To | | | | | Procedures | Contact | Contact | +--------+ + + + + + | Closed | Specialty | Gastroenterol | Diagnoses | Ritu, | [facility], | | | Services | ogy | Upper | Jet Dempsey MD | Liliya, | | | Required | | abdominal | [address] | AD COPY WRITER [address] | | | | | pain | [address] [place] | [address] | | | | | [place] | [place], [place] | [address] | | | | | esophagus | [address] | [place], | | | | | without | Phone: | [place] [address] | | | | | dysplasia | [phone] | Phone: | | | | | Chronic | Fax: | [phone] | | | | | gastritis | [phone] | Fax: | | | | | without | | [phone] | | | | | bleeding, | | | | | | | unspecified | | | | | | | gastritis | | | | | | | type | | | +--------+ + + + + + Encounter Details +--------+---------+ + + + | Date | Type | Department | Care Team | Description | +--------+---------+ + + + | 05/28/ | Office | [facility] [place] | [facility], | Chronic idiopathic | | 2019 | Visit | GASTROENTEROLOGY | LiliyaJUVENCIO burden [address] | constipation | | | | [address] [place] | [address] | (Primary Dx) | | | | [address] [place], [place] | [place], [place] | | | | | [address] | [address] | | | | | [phone] | | | +--------+---------+ + + + [...] + + + | Blood Pressure | 122/80 | 05/28/2019 10:26 AM | | | | | PDT | | + + + + + | Pulse | 81 | 05/28/2019 10:26 AM | | | | | PDT | | + + + + + | Temperature | - | - | | + + + + + | Respiratory Rate | 16 | 05/28/2019 10:26 AM | | | | | PDT | | + + + + + | Oxygen Saturation | 97% | 05/28/2019 10:26 AM | | | | | PDT | | + + + + + | Inhaled Oxygen | - | - | | | Concentration | | | | + + + + + | Weight | 95.4 kg (210 lb 5.1 | 05/28/2019 10:26 AM | | | | oz) | PDT | | + + + + + | Height | 157.5 cm (5' 2") | 05/28/2019 10:26 AM | | | | | PDT | | + + + + + | Body Mass Index | 38.47 | 05/28/2019 10:26 AM | | | | | PDT | | + + + + + documented in this encounter Patient Instructions Patient Instructions Liliya SorianoJUVENCIO - 05/28/2019 10:30 AM PDT Treating Constipation Constipation is a common and often uncomfortable problem. Constipation means you have bowel movementsfewer than 3 times per week,or strain to pass hard, dry stool. It can last a s hort time. Or it can be a problem that never seems to go away. The good news is that it can often be treated and controlled. Eat more fiber One of the best ways to help treat constipation is to increase your fiber intake. You can d o this either through diet or by using fiber supplements. Fiber (in whole grains, fruits, an d vegetables) adds bulk and absorbs water to soften the stool. This helps the stool pass thr ough the colon more easily. When you increase your fiber intake, do it slowly to avoid side effects such as bloating. Also increase the amount of water that you drink. Eating more of t he following foods can add fiber to your diet. High-fiber cereals Whole grains, bran, and brown rice Vegetables such as carrots, broccoli, and greens Fresh fruits (especially apples, pears, and dried fruits like raisins and apricots) Nuts and legumes (especially beans such as lentils, kidney beans, and puga beans) Get physically active Exercise helps improve the working of your colon which helps ease constipation. Try to get some physicalactivity every day. If you haven t been active for a while, talk to yourformerly [facility] providerbefore starting again. Laxatives Your healthcare provider may suggest an pqja-wyf-dwdkqnc product to help ease your constipa tion. He or she may suggest the use of bulk-forming agents or laxatives. The use of laxative s, if used as directed, is common and safe. Follow directions carefully when using them. See your healthcare provider for new-onset constipation, or long-term constipation,to rule ou t other causes such as medicines or thyroid disease. Date Last Reviewed: 03/16/201619997168-[address] [employer] [place] [address], [place] [address]. All [facility] ts reserved. This information is not intended as a substitute for professional medical care. Always follow your healthcare professional's instructions. Eating a High-Fiber Diet Fiber is what gives strength and structure to plants. Most grains, beans, vegetables, and f ruits contain fiber. Foods rich in fiber are often low in calories and fat, and they fill yo u up more. They may also reduce your risks for certain health problems.To find out the cory unt of fiber in canned, packaged, or frozen foods, read the Nutrition Facts label. It tells you how much fiber is in one serving. Types of fiber and their benefits There are two types of fiber: insoluble and soluble. They both aid digestion and help you m aintain a healthy weight. Insoluble fiber. This is found in whole grains, cereals, certain fruits and vegetables s uch as apple skin, corn, and carrots. Insoluble fiber may prevent constipation and reduce th e risk for certain types of cancer. It is called insoluble because it does not dissolve in w ater. Soluble fiber. This type of fiber is in oats, beans, and certain fruits and vegetables s uch as strawberries and peas. Soluble fiber can reduce cholesterol, which may help lower the risk for heart disease. It also helps control blood sugar levels. Look for high-fiber foods Try these foods to add fiber to your diet: Whole-grain breads and cereals. Try to eat6 to 8 ounces a day. Include wheat and oat b ran cereals, whole-wheat muffins or toast, and corn tortillas in your meals. Fruits. Try to eat2 cups a day. Apples, oranges, strawberries, pears, and bananas are good sources. (Note: Fruit juice is lowin fiber.) Vegetables. Try to eat at least 2.5 cups a day. Add asparagus, carrots, broccoli, peas, and corn to your meals. Beans.One cup of cooked lentils gives you over15 grams of fiber. Try navy beans, ryan tils, and chickpeas. Seeds.A small handful of seeds gives you about 3 grams of fiber. Try sunflower or ilan seeds. Keep track of your fiber Keep track of how much fiber you eat. Start by reading food labels. Then eat a variety of f oods high in fiber. As you start to eat more fiber, ask your healthcare provider how much wa ter you should be drinking to keep your digestive system working smoothly. Aim for a certain amount of fiber in your diet each day. If you are a woman, that amount is between 25 and 28grams per day. Men should aim for 30 to 33 grams per day. After age 50, your daily fiber needs drop to 22 grams for women and28 grams for men. Before you reach for the fiber supplements, think about this. Fiber is found naturally in h ealthy whole foods. It gives you that feeling of fullness after you eat. Taking fiber supple ments or eating fiber-enrichedfoods will not give you this full feeling. Your fiber intake is a good measure for the quality of your overall diet. If you are missin g out on your daily amount of fiber, you may be lacking other important nutrients as well. Date Last Reviewed: 03/16/201719999871-4734 [employer]. [address] [place] [address]. All righ ts reserved. This information is not intended as a substitute for professional medical care. Always follow your healthcare professional's instructions. documented in this encounter Progress Notes Liliya Soriano ARNP - 05/28/2019 10:30 AM PDTFormatting of this note might be differe nt from the original. PATIENT NAME: Baudilio Schneider : 1980: AGE: 38 y.o. REFERRED BY: Jet Chaney MD PRIMARY CARE: Jet Chaney MD Subjective: CHIEF COMPLAINT: Baudilio Schneider is a 38 y.o. female is here for a follow up. She is being seen today for fol low up colonoscopy. HISTORY OF PRESENT ILLNESS: Patient notes that she has gone back to her constipation. She can go up to 2 days without B M. This causes bloating and discomfort. She states that she was given Amitiza 8 mcg bid. She states that she is unsure if it helped with the bloating, but it did help with constipation for the first week. She denies blood i n the stool. She has tried Miralax, psyllium, laxatives, stool softeners, and laxative teas. They will help in the short term, but no care home relief. MEDICAL, SURGICAL, AND PERSONAL HISTORY There were no vitals taken for this visit. Allergies Allergen Reactions Hydrocodone Hives and Shortness [...] Surgical History: Procedure Laterality Date CHOLECYSTECTOMY 2000 COLONOSCOPY N/A 04/02/2019 Procedure: COLONOSCOPY; Surgeon: Hill Montana MD; [facility] ENDOSCOPY 09/21/2013 weakened lower esophageal sphincter, gastritis biopsied, pathology negative - Dr Montana at [facility] INTRAUTERINE DEVICE INSERTION 07/12/2015 Mirena - Dr Kaur at [facility] TONSILLECTOMY 11/01/2009 chronic tonsillitis, severely hypertrophic tonsils with upper airway obstruction - Dr Farhat thompson at [facility] UPPER GASTROINTESTINAL ENDOSCOPY N/A 08/28/2016 Procedure: EGD; Surgeon: Hill Montana MD; [facility] UPPER GASTROINTESTINAL ENDOSCOPY N/A 08/05/2018 Procedure: EGD; Surgeon: Hill Montana MD; [facility] Family History Problem Relation [...] Employer: [employer] Comment: [employer] in [place] Tobacco Use Smoking status: Current Some Day Smoker Packs/day: 0.10 Years: 5.00 Pack years: 0.50 Types: Cigarettes Smokeless tobacco: Never Used Tobacco comment: 1-2 cigs daily Substance and Sexual Activity Alcohol use: No Alcohol/week: 0.0 oz Drug use: No Sexual activity: Yes Partners: Male Comment: Prince IUD 09/2015 Other Topics Concern Not on file Social History Narrative Marital Status: . 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 HENT: Head: Normocephalic and atraumatic. Eyes: No scleral icterus. Musculoskeletal: Normal range of motion. She exhibits no edema or deformity. Neurological: She is alert and oriented to person, place, and time. Skin: Skin is warm and dry. No rash noted. Psychiatric: She has a normal mood and affect. Her speech is normal and behavior is normal. Nursing note and vitals reviewed. No visits with results within 1 Month(s) from this visit. Latest known visit with results is: Abstract on 04/10/2019 Component Date Value Ref Range Status Colonoscopy Impression, External 04/02/2019 See Full Report~ [facility] Dr. Montana Final Colonoscopy 04/02/2019: Impression: - Tortuous colon. - The examination was otherwise normal. - The distal rectum and anal verge are normal on retroflexion view. - No specimens collected. Assessment: 1. Chronic idiopathic constipation Plan: Discussed normal colonoscopy. At this point, it appears patient has chronic idiopathic con stipation. Will start Linzess 145 mcg to be taken once daily. Advised patient that if this causes diarrhea, we will switch to a lower dose Linzess. If it is not completely effective , we can increase the dosage as well. If patient continues to have abdominal discomfort and bloating with regular bowel movements , she is instructed to make a follow-up appointment to discuss these symptoms further. Patient agreeable to plan. Patient is to call with any question or concerns. Any fevers, chills, chest pain, SOB or o ther serious symptoms patient is to call the office or go to ER CC: Jet Chaney MD This note was dictated using voice recognition software. Please contact me if there are an y questions regarding its content.Electronically signed by JUVENCIO Pollock at 05/28 10:42 AM PDTdocumented in this encounter Plan of Treatment Not on filedocumented as of this encounter Visit Diagnoses + + | Diagnosis | + + | Chronic idiopathic constipation - Primary Unspecified constipation | + + documented in this encounter
--- OUTSIDE RECORDS SUMMARY | ~2020-05-24 | XMS | Encounter Summary ---
Demographics + + + | Address | [facility] | | | [place] [address] | + + + | Home Phone [...] + + + | Author | [facility] | | | and [place] | + + + | Organization | [facility] | | | and [...] [place], [place] | | | | | [address] | | + + + + + | Amy Schneider | ECON | [address] | | | | | [place], [place] | | | | | [address] | | + + + + + | Alisha Schneider | ECON | Unknown | | + + + + + Care Team Providers + +------+ + | Care Long Distance Operator Name | Role | Phone | [...] Description | +--------+--------+ + + + | 06/14/ | Refill | [facility] [place] [facility] | Jet Chaney, | Medication Refill | | 2013 | | [facility] | [address] | | | | | [address] | [place] | | | | | [place] | [address] | | | | | [address] | | | | | | [phone] | | | +--------+--------+ + + + [...]
--- OUTSIDE RECORDS SUMMARY | ~2020-05-24 | XMS | Encounter Summary ---
Demographics + + + | Address | [facility] | | | [place] [address] | + + + | Home Phone [...] Organization | [facility] | | | and [place] [...] [place], [place] | | | | | [address] | | + + + + + | Amy Schneider | ECON | [address] | | | | | [place], [place] | | | | | [address] | | + + + + + | Alisha Schneider | ECON | Unknown | | + + + + + Care Team Providers + +------+ + | Care Caretaker Grounds Name | Role | Phone | + [...] + + | 09/25/ | Hospital | [facility] | Hill Montana MD | | | 2019 | Encounter | MED CTR NUCLEAR | [address] [place] | | | | | MEDICINE [address] | [address] [place], [place] | | | | | [address] [place], | [address] | | | | | [place] [address] | | | | | | [phone] | | | +--------+ + + + [...]
--- OUTSIDE RECORDS SUMMARY | ~2020-05-24 | XMS | Encounter Summary ---
Demographics + + + | Address | [facility] | | | [place] [address] | + + + | Home Phone [...] + | Organization | [facility] [address] [...] [place], [place] | | | | | [address] | | + + + + + | Amy Schneider | ECON | [address] | | | | | [place], [place] | | | | | [address] | | + + + + + | Alisha Schneider | ECON | Unknown | | + + + + + Care Team Providers + +------+ + | Care Aquatic Instructor Name | Role | Phone | [...] | | | | | | | [place] | | | | | | | [...] | +--------+ + + + + | 08/28/ | Hospital | [facility] | Hill Montana MD | Gastroesophageal | | 2016 | Encounter | [facility] | [address], [place] | reflux disease with | | | | [address] | [address] [place], [place] | esophagitis (Primary | | | | [place], [place] | [address] | Dx); Epigastric | | | | [address] | | pain | | | | [phone] | | | +--------+ + + + [...] + + + | Blood Pressure | 118/75 | 08/28/2016 12:45 PM | | | | | PST | | + + + + + | Pulse | 65 | 08/28/2016 12:45 PM | | | | | PST | | + + + + + | Temperature | 37.1 C (98.8 F) | 08/28/2016 10:04 AM | | | | | PST | | + + + + + | Respiratory Rate | 20 | 08/28/2016 12:45 PM | | | | | PST | | + + + + + | Oxygen Saturation | 100% | 08/28/2016 12:45 PM | | | | | PST [...] than a third of people in the have this bacteria in the ir bodies. [...] or as directed by your healthcare provider [phone] [employer]. [address] [place] [address], [place] [address]. All righ ts reserved. This information is [...] Watch when you eat Avoid lying down ubu2aeebu after eating. Do not snack before going [...] clothes Limit aspirin and ibuprofen Stop smoking [phone] [employer]. [address] [place] [address], [place] [id number]. All righ ts reserved. This information is [...] has no questions consent form is si gnkoko we'll proceed with upper endoscopy for evaluation of abdominal pain as a 68 O2 sat 100% blood pressure we'll proceed with upper endoscopy EHarguero, Hill Holder MD - 08/13/2016 4:33 PM PSTFormatting of th is note might be different from the original. Subjective: Patient ID: Baudilio Schneider is a 35 y.o. female. HPI Comments: Patient is seen for evaluation of abdominal pain. Records are reviewed The patient states that the pain began approximately a year ago. However reviewing the [facility] rt show she had evaluation for abdominal [...] was negative in 2013 CT scan done. 2013 showed simply a liver cyst. Upper endosco [...] 5 Years of Education: N/A Occupational History [employer] in [place] Social History Main Topics Smoking status: Light Tobacco Smoker -- .3 years Smokeless tobacco: Never Used Comment: 2 cigarettes daily Alcohol Use: No Drug Use: No Sexual Activity: Partners: Male Comment: Mirena IUD 09/2015 Other Topics Concern None Social History Narrative Marital Status: . 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 generalized decreased in gastrointestinal motility Portions of this report were transcribed using voice recognition software. Every effort wa s made to ensure accuracy; however, inadvertent computerized servomechanism assembler errors may be pre sent. documented in [...] Endoscopy Patient: Baudilio Schneider : 1980 Acct: [id number] Exam Date: Sunday, August 28, 2016 Doctor: [...] may reach your physician at Work: Ext [phone]. If unable to reach your p darrion, call [facility] Emergency Department at Ext. [phone] [...] + | [facility] | [address] | [place] | [phone] | | [facility] | | [address] | | | - LABORATORY | | | | + + + + + EGD (08/28/2016 11:00 AM PST) + + | Specimen | + + | | + + + + -+ | Narrative | Performed At | + + -+ | | [facility] | | GastroenterologyPatient Name: Baudilio Peña Date: 08/28/2016 | [facility] | | 11:00 AMMRN: [id number] #: [id number] of : | | | 1980Admit Type: AmbulatoryAge: 36Room: [facility] 01Gender: FemaleNote | | | Status: FinalizedAttending MD: Hill Montana , [facility] | | | Upper GI endoscopyIndications: Epigastric abdominal pain, | | | Suspected esophageal reflux, For therapy | | | of esophageal refluxProviders: Hill Montana MD, Maryanne | | | THO Leonard, Myla Puente RN, Carolina | | | Jeremy, TechnicianReferring MD: Jet Chaney MD | | [...] the nurse | | | and the agricultural technician in the endoscopy suite. Mental Status [...] AMScope Out: | | | 11:24:[address] [facility], [facility] [address] | | | [place] [address] | | | instructions were provided to [...] |Scope Out: 11:24:42 AM | | | [facility], [address] [place], [place] | | | [address] | | + + -+ + +---------+ [...] DUODENAL BIOPSY SPECIMEN(S): B ESOPHAGEAL BIOPSY | MI PATHOLOGY | | SPECIMEN SOURCE: A. DUODENAL [...] | | uncertain; clinical correlation is requested. JVR:[facility]:C2NR | | | GROSS DESCRIPTION: The specimen [...] cm, all into (B1). | | | yt:JMARVIN:[facility] PERFORMING LABORATORY: Tissue processing and slide | | | preparation were performed by [email or web address], [address] [place] [address], | | | [address], [place] [address] (Metal Furniture Assembly Supervisor: Jorge Aldana M.D. | | | CLIA#: [id number]). Professional interpretation was performed by | | | [email or web address], [facility], [address], [place] [address] | | | (Metal Furniture Assembly Supervisor: Jorge Aldana M.D.; IA#: [id number]). | | | Diagnostician: Jorge Aldana MD [...] - Primary | + + | Epigastric pain Abdominal [...] meperidine (DEMEROL) 100 mg/mL | Given | 20 | 100 mg | | | | injection PRN, Starting Tue | | 16 11:12 | | | | | 16 at 1112 | | AM PST | | | | + +-------+ +--------+---+---+ +---+---+ | | | +---+---+ + +-------+ +------+---+---+ | midazolam (VERSED) 5 mg/mL | Given | 08/28/20 | 1 mg | | | | injection PRN, Starting Tue | | 16 11:16 | | | | | 16 at 1114 | | AM PST | | | | + +-------+ +------+---+---+ +-------+ +------+---+---+ | Given | 20 | 1 mg | | | | | 16 11:14 | | | | | | AM PST | | | | +-------+ +------+---+---+ +---+---+ | | | +---+---+ documented in this encounter
--- OUTSIDE RECORDS SUMMARY | ~2020-05-24 | XMS | Encounter Summary ---
Demographics + + + | Address | [facility] | | | [place] [address] | + + + | Home Phone [...] Organization | [facility] [...] [place], [place] | | | | | [address] | | + + + + + | Aym Schneider | ECON | [address] | | | | | [place], [place] | | | | | [address] | | + + + + + | Alisha Schneider | ECON | Unknown | | + + + + + Care Team Providers + +------+ + | Care Dot Etcher Apprentice Name | Role | Phone | + +------+ + PCP | Unavailable | + +------+ + Encounter Details +--------+ + + + + | Date | Type | Department | Care Team | Description | +--------+ + + + + | 03/23/ | Hospital | [facility] | | | | 2005 | Encounter | MED CTR EMERGENCY | | | | | | [place] [address] | | | | | | [place] | | | | | | [address] | | | | | | [phone] | | | +--------+ + + + [...]
--- OUTSIDE RECORDS SUMMARY | ~2020-05-24 | XMS | Encounter Summary ---
Demographics + + + | Address | [facility] | | | [place] [address] | + + + | Home Phone [...] [place], [place] | | | | | [address] | | + + + + + | Amy Schneider | ECON | [address] | | | | | [place], [place] | | | | | [address] | | + + + + + | Alisha Schneider | ECON | Unknown | | + + + + + Care Team Providers + +------+ + | Care Renewable Energy Project Manager Name | Role | Phone | + +------+ + | Jet Chaney MD | PCP | | + +------+ + Encounter Details +--------+ + + + + | Date | Type | Department | Care Team | Description | +--------+ + + + + | 04/10/ | Abstract | [facility] | [place], | | | 2018 | | GASTROENTEROLOGY | MD [address] | | | | | [address] | [place] | | | | | [address] | [place] [address] | | | | | [address] | | | | | | [phone] | | | +--------+ + + + [...] | + +--------+ + + + | EXTERNAL: | Routin | 04/02/2019 | | Results for this | | COLONOSCOPY | e | | | procedure are in the | | | | | | results section. | + +--------+ + + + documented in this encounter Results EXTERNAL: COLONOSCOPY (04/02/2019) + + + + + + | Component | Value | Ref Range | Performed | Pathologist | | | | | At | Signature | + + + + + + | Colonoscopy | See Full Report~ [facility] | | | | | | Dr. Montana | | | | | Impression, | | | | | | External | | | | | + + + + + + documented in this encounter Visit Diagnoses Not on filedocumented in this encounter"
--- OUTSIDE RECORDS SUMMARY | ~2020-05-24 | XMS | Encounter Summary ---
Demographics + + + | Address | [facility] | | | [place] [address] | + + + | Home Phone [...] | Organization | [facility] | | | and [...] [place], [place] | | | | | [address] | | + + + + + | Amy Schneider | ECON | [address] | | | | | [place], [place] | | | | | [address] | | + + + + + | Alisha Schneider | ECON | Unknown | | + + + + + Care Team Providers + +------+ + | Care Dispensing Lead Name | Role | Phone | + +------+ + | Zen Chaney MD | PCP | | + +------+ + Reason for Visit + + + | Reason | Comments | + + + | Back Pain | worse on left low back | + + + Evaluate & Treat (Routine) +--------+ + + + + + | Status | Reason | Specialty | Diagnoses / | Referred By | Referred To | | | | | Procedures | Contact | Contact | +--------+ + + + + + | Closed | Specialty | Physical | Diagnoses | Ritu, | Eloy Mayorga | | | Services | Medicine and | Chronic | Zen Dempsey MD | Gallo Yusuf MD [address] | | | Required | Rehabilitatio | midline low | [address] | | | | n | back pain | [address] [place] | [place], | | | | | without | [place] | [place] [address] | | | | | sciatica | [address] | Phone: | | | | | Cervical | Phone: | [phone] | | | | | radicular | [phone] | Fax: | | | | | pain | Fax: | [phone] | | | | | | [phone] | | +--------+ + + + + + Encounter Details +--------+---------+ + + + | Date | Type | Department | Care Team | Description | +--------+---------+ + + + | 07/04/ | Office | [facility] | Eloy Mayogra, | Chronic midline low | | 2016 | Visit | PHYSIATRY [address] | [address] | back pain without | | | | [address] | [place] | sciatica (Primary | | | | [place] | [address] | Dx); Lumbar facet | | | | [address] | | arthropathy | | | | [phone] | | | +--------+---------+ + + + [...] + + + | Blood Pressure | 123/83 | 07/04/2016 3:53 PM | | | | | PDT | | + + + + + | Pulse | 67 | 07/04/2016 3:53 PM | | | | | PDT | | + + + + + | Temperature | - | - | | + + + + + | Respiratory Rate | 16 | 07/04/2016 3:53 PM | | | | | PDT | | + + + + + | Oxygen Saturation | - | - | | + + + + + | Inhaled Oxygen | - | - | | | Concentration | | | | + + + + + | Weight | 91.2 kg (201 lb) | 07/04/2016 3:53 PM | | | | | PDT | | + + + + + | Height | 157.5 cm (5' 2") | 07/04/2016 3:53 PM | | | | | PDT | | + + + + + | Body Mass Index | 36.76 | 07/04/2016 3:53 PM | | | | | PDT | | + + + + + documented in this encounter Patient Instructions Patient Instructions Eloy Mayorga MD - 07/04/2016 4:41 PM PDTResume exercises as outli chemo by physical therapy. Continue these exercises on a routine daily basis, for the rest of your life. Continue weight loss. Good job! Please attend the injection appointment with Foster Leo MD. If his office has not co ntacted you within one week, to schedule the injection, please contact my clinic. Your inje ction will be performed at [facility]. Please take not e of whether your pain is significantly reduced in the hours immediately following the injec tion. Your insurance may not cover injections. Stop ibuprofen. Start new medication Meloxicam. Take it once daily with food. Stop takin g Meloxicam if you have stomach pain or upset. Ibuprofen and Meloxicam are both NSAIDs. Do n't take both! You will need to stop all NSAIDs for 3 days prior to your injections. There is an increased risk of gastrointestinal bleed and/or ulcer with all nonsteroidal ant iinflammatory medication (NSAIDs). If you have stomach upset or pain stop taking the medica tion. If you have dark black stool or if you vomit up what looks like coffee grounds please [...] and with all nonsteroidal antiinflammatory medication (NSAIDs). NDAIDS are not safe to take during . Do not become while taking them. D o not start taking them if you are . Use contraception while taking the medication to avoid becoming . If you are or think you may be inform your ph ysician immediately. If you are planning to become speak to your physician about d iscontinuing these medications prior to becoming . Return to the clinic in 6-8 weeks to review your response to injections. documented in this encounter Progress Notes Eloy Mayorga MD - 07/04/2016 5:57 PM PDT [facility] PHYSIATRY [address] [facility] [address] OFFICE NOTE ELOY MAYORGA JR, MD Patient: PAVITHRA SCHNEIDER Admitting: MR #: [id number] LOC: PT TYPE: Adm Date: 07/04/2016 : 1980 DATE OF : 1980 PRIMARY CARE PROVIDER: Zen Chaney MD DATE OF SERVICE: 07/04/2016 PATIENT IDENTIFICATION: A 35-year-old female with midline low back pain without radicular symptoms. HISTORY OF PRESENT ILLNESS: The patient indicates that she had insidious onset of low gary k pain approximately 2 years ago. She indicates that pain seems to be unchanged to may be slightly worse over time. She indicates that pain started 2 years ago without specific in jury. She indicates that pain varies in intensity from day to day, depending on activity, use of anti-inflammatory medications, exercise program, work, etc. She indicates that her pain today is a 5/10 on a numerical pain scale. She indicates that some days, the pain is much worse. She indicates that there are days that her pain is a 7 or 8/10 on a numerical pain scale. She indicates her pain is constant in timing. Pain varies in intensity. [place] n is usually dull at rest but can be sharp if she moves the wrong way. Pain is increased i n activity such as sitting down, lying down. She indicates that pain makes it difficult f or her to fall asleep at night. She indicates that her pain is also brought on by bending over, especially standing back upright and extending her back after she has been bent over for a while. She indicates that her pain is reduced with heat and medication. She report s that physical therapy previously reduced pain. Physical therapy would make her feel bett er for a few days, but then pain would come back. She indicates that she never achieved an y long lasting pain relief with physical therapy treatment. She indicates that she has use d hydrocodone on occasion. She indicates that it reduces her pain when she takes it. She indicates that it makes it so she can fall asleep at night. She reports that she has trie d to limit her use of hydrocodone to once or twice per month. She indicates that she uses ibuprofen. She finds it offers her benefit. She indicates that she can only tolerate walt ing ibuprofen twice per day. She reports that any more than this and she gets stomach upse t. She indicates that sometimes she goes without ibuprofen and then her pain escalates and gets much worse. If she takes ibuprofen more routinely, pain seems to be slightly better controlled. She has never had any surgery on the back. She has never tried acupuncture or chiropractic treatment. She indicates that her pain is intolerable at times. She indicat es that her pain really interferes with her activities of daily living. There are times wh ere she cannot fall asleep because of her pain. 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 She indicates there are times where her pa in becomes severe enough that it interferes with her ability to do her job. She indicates that the pain does not radiate from the back into the leg. She denies numbness or tinglin g in the leg. She denies incontinence of bowel or bladder. She denies weakness in the leg s. She indicates that the back pain is right in the midline. She indicates that it is wor se left of midline, rather than right. ALLERGIES: NO KNOWN DRUG ALLERGIES. CURRENT MEDICATIONS: Vitamin D3 daily. Fish oil 1000 units 2 tablets daily. Levothyroxine 75 mcg daily. Multivitamin with minerals once daily. Prilosec 1 capsule every morning. REVIEW OF SYSTEMS: The patient denies nausea, vomiting, diarrhea, constipation, fever, ch ills, shortness of breath, or chest pain, denies skin breakdown or rash. Denies lymph glan d swelling or unexplained weight loss. All other review of systems negative. PAST MEDICAL HISTORY: Ms. Schneider has history of depression. She has history of environme ntal allergies, gastroesophageal reflux disease. She has history of tobacco abuse. She has history of thyroid disease. She has history of vitamin D deficiency. She has history of g allbladder disease, obesity, chronic back pain. She has history of prediabetes. Recent MRI demonstrates polycystic changes in her ovaries. She may have polycystic ovary disease. PAST SURGICAL HISTORY: She has had a cholecystectomy. She has had esophageal gastroduode noscopy. She has had tonsillectomy. She has not had any other surgeries. FAMILY MEDICAL HISTORY: Mother is alive with no known medical problems. Father is alive w ith history of diabetes, high blood pressure, kidney disease, and heart disease. She repor ts that in the family, there is also a history of high blood pressure, depression, kidney d isease and colon cancer. SOCIAL MEDICAL HISTORY: She indicates that she smokes cigarettes usually 1 or 2 cigarette s every few days. She indicates that she does not smoke every day. She denies consumption of alcohol. She denies use of illicit drugs. She currently works making [employer] [facility] [employer]. REVIEW OF SYSTEMS: The patient denies nausea, vomiting, diarrhea, constipation, fever, ch ills, shortness of breath, or chest pain, denies skin breakdown or rash. Denies lymph glan d swelling or unexplained weight loss. All other review of systems negative. PHYSICAL EXAMINATION: VITAL SIGNS: Heart rate 67, respiratory rate 16, blood pressure 123/83, weight 201 pounds , height 5 feet 2 inches. GENERAL: No acute distress. Alert to person, place, time and situation. HEENT: Extraocular muscles intact. Sclerae are clear. NECK: Normal range of motion. Mild tenderness to palpation. Spurling's test negative. A xial loading test negative. HEART: Regular rate and rhythm, no murmurs, no gallops. LUNGS: Clear to auscultation, no wheezing, no crackles. ABDOMEN: Moderate obesity. Nontender. Positive for bowel sounds. BACK: Mild tenderness to palpation over left lumbar facet joints. Seated straight leg ra ise negative. Bear's test negative. With rotation towards the right, she is able to re produce some of her left low back pain. She is also able to reproduce her back pain with l umbar facet loading and back extension. EXTREMITIES: Reveals no clubbing, cyanosis or edema. NEUROLOGICAL: Demonstrates intact cranial nerves. Memory intact. Speech normal. Sensati on intact to light touch and pinprick in all 4 extremities. Reflexes normal, 2+ over roche lar and Achilles of both lower extremities. Motor exam demonstrates normal strength, 5/5 h ip flexion, knee flexion, knee extension, ankle dorsiflexion, ankle plantar flexion streng th in both lower extremities. Gait is normal. Romberg test negative. DATABASE: Lumbar MRI imaging from 11/2015 imaging personally reviewed by me and reviewed in detail with the patient. I concur with findings as reported by the radiologist. The asael jones indicates that she is aware of the ovary findings reported on the exam. She indicate s that these have been reviewed with her previously by Dr. Chaney. On her imaging, ther e is lumbar facet arthritis. There are facet effusions. This seems to affect L3-4, L4-5, and L5-S1. There is no significant neural foraminal narrowing. There is no significant central canal stenosis. There is nothing to suggest an origin for lumbar radiculopathy. ASSESSMENT: 1. Chronic midline back pain without sciatica, ICD-10 M54.5 and G89.29. 2. Lumbar facet arthritis at L3-4, L4-5 and L5-S1, worse on the left, ICD-10 M12.88. PLAN: The patient's pain is likely related to underlying lumbar facet arthritis. She solis s have some lumbar facet joint, minimal effusion. This may be contributing to her pain. Th is would explain why she has benefited briefly from physical therapy as well as why she has not benefitted from ibuprofen. She is only taking ibuprofen twice a day. She may be able to achieve better anti-inflammatory effect with once a day anti-inflammatory. She has bee n asked to discontinue ibuprofen. She will start Meloxicam 15 mg once a day with food. She is advised that she needs to stop taking it for stomach upset. We discussed the cardiova scular risk factors of NSAID use as well as increased risk of stroke as well as increased r isk of gastrointestinal bleeding. She was also advised that these medications are not safe to take during . She is advised that if she is planning on becoming or thinks that she might become , that she would need to discontinue this medication. Previously, she was advised that she needs to be on control while taking this type of medication. She is advised to resume exercises as outlined by previous physical therapy. She was inst ructed that she needs to continue these exercises on a routine daily basis indefinitely. S he reports that they have previously offered her some pain relief temporarily. She was ins tructed that she would need to continue the exercises on a daily basis for them to offer h er continued pain reduction. She has had some weight loss. She is encouraged to continue w orking towards weight loss. We discussed that weight loss may have its benefit. She has p ain that persists. It interferes with her activities of daily living. She has tried anti -inflammatory medications and physical therapy. I believe that she would benefit from diag nostic as well as potentially therapeutic facet steroid injections. I have requested facet injections at left L3-4, L4-5 and L5-S1. She was advised that if there is a very strong miryam pat that her current insurance program does not cover this type of injection. In summary, she will resume physical therapy exercises. She will continue working towards weight loss. Facet injections have been requested. She was advised to stop ibuprofen and make way for new medication, Meloxicam, which she will take once daily. She is advised o f risks of anti-inflammatory medications as well as gestational risks. She will return to [facility] in 6-8 weeks to review management of symptoms. Thank you for allowing me to be involved in the care of your patient. If you have any ques tions regarding the care of Ms. Schneider, please do not hesitate to call. ELOY MAYORGA JR, MD Dictated by ELOY MAYORGA JR, MD 07/04/2016 17:57:30 Transcribed on 07/05/2016 12:42:34 by sb job# [id number] Confirmation #: [id number] cc: ZEN CHANEY MD Eloy Mayorga MD - 07/04/2016 4:47 PM PDTThis office note has been dictated. Report Confirmation# [id number] signed by Eloy Mayorga MD at 07/04/2016 5:57 PM PDTdocumented in this encounter Plan of Treatment Not on filedocumented as of this encounter Visit Diagnoses + + | Diagnosis | + + | Chronic midline low back pain without sciatica - Primary | + + | Lumbar facet arthropathy Lumbosacral spondylosis without myelopathy | + + documented in this encounter
--- OUTSIDE RECORDS SUMMARY | ~2020-05-24 | XMS | Encounter Summary ---
Demographics + + + | Address | [facility] | | | [place] [address] | + + + | Home Phone [...] + + + | Author | [facility] | | | and [place] | + + + | Organization | [facility] [...] [place], [place] | | | | | [address] | | + + + + + | Amy Schneider | ECON | [address] | | | | | [place], [place] | | | | | [address] | | + + + + + | Alisha Schneider | ECON | Unknown | | + + + + + Care Team Providers + +------+ + | Care Continuous Improvement Analyst Name | Role | Phone | [...] | Specialty | Physical | Diagnoses | Rob Chaney Therapy | | | Services | Therapy | Chronic low | Jet Dempsey MD | Pt Acute | | | Required | | back pain | [address] | [address] | | | | | | [address] [place] | [place], | | | | | | [place] | [place] | | | | | | [address] | [address] | | | | | | Phone: | Phone: | | | | | | [phone] | [phone] | | | | | | Fax: | Fax: | | | | | | [phone] | [phone] | +--------+ + + + + + Encounter Details +--------+ + + + + | Date | Type | Department | Care Team | Description | +--------+ + + + + | 08/04/ | Orders Only | [facility] | Jet Chaney, | Chronic low back | | 2012 | | MEDIC[facility] [place] | [address] | pain (Primary Dx) | | | | [address] | [place] | | | | | [place] | [address] | | | | | [address] | | | | | | [phone] | | | +--------+ + + + [...] Routin | Chronic low back | Ordered: 08/04/2013 | | to Physical Therapy | Referral | e | pain | | + + +--------+ + + documented as of this encounter Visit Diagnoses + + | Diagnosis | + + | Chronic low back pain - Primary Lumbago | + + documented in this encounter"
--- OUTSIDE RECORDS SUMMARY | ~2020-05-24 | XMS | Encounter Summary ---
Demographics + + + | Address | [facility] | | | [place] [address] | + + + | Home Phone [...] + | Organization | [facility] | | | and [...] [place], [place] | | | | | [address] | | + + + + + | Amy Schneider | ECON | [address] | | | | | [place], [place] | | | | | [address] | | + + + + + | Alisha Schneider | ECON | Unknown | | + + + + + Care Team Providers + +------+ + | Care Breast Surgeon Name | Role | Phone | + +------+ + | Jet Chaney MD | PCP | | + +------+ + Encounter Details +--------+ + + + + | Date | Type | Department | Care Team | Description | +--------+ + + + + | 11/13/ | Hospital | [facility] | Jet Chaney, | Gestational diabetes | | 2016 | Encounter | [facility] | MD [address]y [address] | mellitus, | | | | [address] [place] | [place] | delivered; Abnormal | | | | [place], [place] | [address] | glucose | | | | [address] | | | | | | [phone] | | | +--------+ + + + [...] | + +--------+ + + + | GLUCOSE TOLERANCE | Routin | 11/13/2015 | Gestational | Results for this | | RESULT, 2HR | e | 11:38 AM | diabetes mellitus, | procedure are in the | | | | PST | delivered Abnormal | results section. | | | | | glucose | | + +--------+ + + + | GLUCOSE TOLERANCE | Routin | 11/13/2015 | Gestational | Results for this | | RESULT, 1HR | e | 10:35 AM | diabetes mellitus, | procedure are in the | | | | PST | delivered Abnormal | results section. | | | | | glucose | | + +--------+ + + + | GLUCOSE, FASTING | Routin | 11/13/2015 | Gestational | Results for this | | (NON-ORD) | e | 9:17 AM | diabetes mellitus, | procedure are in the | | | | PST | delivered Abnormal | results section. | | | | | glucose | | + +--------+ + + + | GLUCOSE TOLERANCE | Routin | 11/13/2015 | Gestational | Results for this | | TEST,2HR | e | 9:17 AM | diabetes mellitus, | procedure are in the | | | | PST | delivered Abnormal | results section. | | | | | glucose | | + +--------+ + + + documented in this encounter Results Glucose Tolerance Result, 2Hr (11/13/2015 11:38 AM PST) + +---------+ + + + | Component | Value | Ref Range | Performed | Pathologist | | | | | At | Signature | + +---------+ + + + | Glucose, | 155 (H) | 70 - 109 mg/dL | [facility] | | | 2hr | | | [facility] | | [...] ST. | [address] | [place], [place] | [phone] | | [facility] | | [address] | | | - LABORATORY | | | | + + + + + Glucose Tolerance Result, 1Hr (11/13/2015 10:35 AM PST) + +---------+ + + + | Component | Value | Ref Range | Performed | Pathologist | | | | | At | Signature | + +---------+ + + + | Glucose, | 174 (H) | 70 - 109 mg/dL | [facility] | | | 1hr | | | [facility] | | [...] [address] | [place] | [phone] | | [facility] | | [address] | | | - LABORATORY | | | | + + + + + Glucose, Fasting (11/13/2015 9:17 AM PST) + +-------+ + + + | Component | Value | Ref Range | Performed | Pathologist | | | | | At | Signature | + +-------+ + + + | Glucose, | 100 | 70 - 109 mg/dL | [facility] | | | Fasting | | | [facility] | | [...] + + | [facility] | [address] | [place] | [phone] | | [facility] | | [address] | | | - LABORATORY | | | | + + + + + documented in this encounter Visit Diagnoses + + | Diagnosis | + + | Gestational diabetes mellitus, delivered | + + | Abnormal glucose Other abnormal glucose | + + documented in this encounter"
--- OUTSIDE RECORDS SUMMARY | ~2020-05-24 | XMS | Encounter Summary ---
Demographics + + + | Address | [facility] | | | [place] [address] | + + + | Home Phone [...] | Organization | [facility] | [...] [place], [place] | | | | | [address] | | + + + + + | Amy Schneider | ECON | [address] | | | | | [place], [place] | | | | | [address] | | + + + + + | Alisha Schneider | ECON | Unknown | | + + + + + Care Team Providers + +------+ + | Care Dialysis Chief Equipment Technician Name | Role | Phone | + +------+ + | Zen Chaney MD | PCP | | + +------+ + Reason for Visit + + + | Reason | Comments | + + + | Follow-up | | + + + | Other | patient's dad the week of . Was given | | | medication in [place] as she got sick. Had been having high BP | | | too. Doctor in [place] recommended a urine test to check her | | | kidneys but denies any UTI symptoms | + + + Encounter Details +--------+---------+ + + + | Date | Type | Department | Care Team | Description | +--------+---------+ + + + | 09/07/ | Office | [facility] | Zen Chaney, | Essential | | 2019 | Visit | MEDICINE JULIAN | [address] | hypertension | | | | [address] | [place] | (Primary Dx); | | | | [place] | [address] | Impaired fasting | | | | [address] | | glucose; | | | | [phone] | | Hypothyroidism, | | | | | | unspecified type; | | | | | | Ovarian cyst, left; | | | | | | Tobacco abuse; | | | | | | Controlled type 2 | | | | | | diabetes mellitus | | | | | | without | | | | | | complication, | | | | | | without long-term | | | | | | current use of | | | | | | insulin (HCC) | +--------+---------+ + + [...] + + + | Blood Pressure | 112/70 | 09/07/2019 9:45 AM | | | | | PST | | + + + + + | Pulse | 76 | 09/07/2019 9:45 AM | | | | | PST | | + + + + + | Temperature | 36.8 C (98.3 F) | 09/07/2019 9:45 AM | | | | | PST | | + + + + + | Respiratory Rate | 16 | 09/07/2019 9:45 AM | | | | | PST | | + + + + + | Oxygen Saturation | 100% | 09/07/2019 9:45 AM | | | | | PST | | + + + + + | Inhaled Oxygen | - | - | | | Concentration | | | | + + + + + | Weight | 94.9 kg (209 lb 3.5 | 09/07/2019 9:45 AM | | | | oz) | PST | | + + + + + | Height | - | - | | + + + + + | Body Mass Index | 38.27 | 05/28/2019 10:26 AM | | | | | PDT | | + + + + + documented in this encounter Patient Instructions Patient Instructions Zen Chaney MD - 09/07/2019 9:45 AM PSTHave labs here today. STOP the diurmessel (furosemide) STOP the Alderan (losartan). CONTINUE to take the dosteril (lisinopril) every day. Your blood pressure goal is less than 140/90. If you develop swelling in your legs after stopping these - please follow-up with us. documented in this encounter Progress Notes Zen Chaney MD - 09/07/2019 9:45 AM PSTFormatting of this note might be different fr om the original. Subjective: Patient ID: Baudilio Schneider is a 39 y.o. female who is here today for Follow-up and Other (pa karen's dad the week of . Was given medication in [place] as she got sick. Had been having high BP too. Doctor in [place] recommended a urine test to check her k idneys but denies any UTI symptoms) HPI Her dad ~4 weeks ago related to ESRD and CAD. While visiting him in [place] she got sick. She had labs and was started on medications for "retaining water, blood pressure , blood sugar, and a vitamin." She had a normal CBC. Her fasting sugar was 117. Her creat inine was 0.7. Her total cholesterol was 143, HDL 33, LDL 81, TG's 146. Her TSH was mildly low at 0/32. Her free T4 was normal at 0.926. T3 was slightly low at 0.698. He prescribed her both losartan 50 mg daily and lisinopril 10 mg daily in addition to lasix 40 mg daily. She was not started on potassium. She has been taking these medications as p rescribed x ~3 weeks. She continues levothyroxine 100 mcg daily. She no longer takes Cytomel. Her edema in ankles is much better. No CP, orthopnea, SOB, cough. Patient's medications, allergies, past medical, surgical, social and family histories were obtained and reviewed as appropriate. Current Outpatient Medications on File Prior to Visit Medication Sig Dispense Refill B Complex Vitamins (VITAMIN B COMPLEX PO) Take by mouth. Cholecalciferol (VITAMIN D3) 5000 UNITS CAPS Take 5,000 Units by mouth Daily. fish oil 1,000 mg capsule Take 2,000 mg by mouth Daily. furosemide (LASIX) 40 mg tablet Take 40 mg by mouth daily. ibuprofen (ADVIL,MOTRIN) 600 MG tablet Take 600 mg by mouth as needed. levonorgestrel (MIRENA) 20 MCG/24HR IUD 1 Device by Intrauterine route once for 1 dose. 1 Device 0 levothyroxine (SYNTHROID) 100 mcg tablet Take 100 mcg by mouth every morning (before br eakfast). lisinopril (PRINIVIL, ZESTRIL) 10 mg tablet Take 10 mg by mouth Daily. losartan (COZAAR) 50 mg tablet Take 50 mg by mouth Daily. Multiple Vitamins-Minerals (WOMENS ONE DAILY PO) Take [...] to visit. Review of Systems Objective: BP 112/70 | Pulse 76 | Temp 36.8 C (98.3 F) (Temporal) | Resp 16 | Wt 94.9 kg (209 lb 3.5 oz) | SpO2 100% | BMI 38.27 kg/m Physical Exam Constitutional: Very pleasant, well developed, NAD Neck: Neck supple. No thyromegaly present. Cardiovascular: Normal rate, regular rhythm, normal heart sounds and intact distal pulses. Exam reveals no gallop and no friction rub. No murmur heard. Pulmonary/Chest: Breath sounds normal. No respiratory distress. She has no wheezes. She has no rales. Musculoskeletal: General: No edema. Lymphadenopathy: She has no cervical adenopathy. US Pelvis IMPRESSION: IUD within the endometrial cavity. Otherwise, unremarkable sonographic appearance of the uterus and ovaries. Dictated and Signed by: Bear Quintanilla MD Electronically signed: 09/03/2019 9:02 PM Assessment & Plan: 1. Essential hypertension: Well controlled and previously well controlled without medicatio ns - Stop losartan and lasix - Continue lisinopril (PRINIVIL, ZESTRIL) 10 mg tablet; Take 1 tablet by mouth Daily. To lo wer blood pressure Dispense: 90 tablet; Refill: 1 - Monitor - She would like urine tested 2. Impaired fasting glucose - A1c today 3. Hypothyroidism, unspecified type - FU with Dr Stern as planned. They will recheck labs then 4. Ovarian cyst, left: Resolved 5. Tobacco abuse - Advised to quit Return in about 3 months (around 12/07/2019), or if symptoms worsen or fail to improve. Prashanth Chaney MD documented in this e ncounter Miscellaneous Notes Addendum Note - Roxana Castle LPN - 09/07/2019 9:45 AM PST Addended by: ROXANA CASTLE on: 09/07/2019 05:02 PM Modules accepted: Orders ddendum Note - S Zen keller MD - 09/07/2019 9:45 AM PST Addended by: ZEN CHANEY on: 09/07/2019 0 4:27 PM Modules accepted: Orders ddendum Note - Roxana [place] LPN - 09/07/2019 9:45 AM PST Addended by: ROXANA CASTLE on: 09/07/2019 1 0:52 AM Modules accepted: Orders documented in thi s encounter Plan of Treatment Not on filedocumented as of this encounter Procedures + +--------+ + + + | Procedure Name | Priori | Date/Time | Associated Diagnosis | Comments | | | ty | | | | + +--------+ + + + | MICROALBUMIN/CREATIN | Add-On | 12/07/2019 | Controlled type 2 | Results for this | | INE RATIO, URINE | | 10:58 AM | diabetes mellitus | procedure are in the | | TEST | | PDT | without | results section. | | | | | complication, | | | | | | without long-term | | | | | | current use of | | | | | | insulin (HCC) | | + +--------+ + + + | MICROALBUMIN/CREATIN | Routin | 09/07/2019 | Controlled type 2 | Results for this | | INE RATIO, URINE | e | 7:09 PM | diabetes mellitus | procedure are in the | | TEST | | PST | without | results section. | | | | | complication, | | | | | | without long-term | | | | | | current use of | | | | | | insulin (HCC) | | + +--------+ + + + | POCT URINALYSIS, | Routin | 09/07/2019 | Essential | Results for this | | AUTO WITH CONF | e | 10:51 AM | hypertension | procedure are in the | | | | PST | Impaired fasting | results section. | | | | | glucose Ovarian | | | | | | cyst, left | | + +--------+ + + + | EXTERNAL LAB: TSH | Routin | 08/15/2019 | | Results for this | | | e | | | procedure are in the | | | | | | results section. | + +--------+ + + + | EXTERNAL LAB: | Routin | 08/15/2019 | | Results for this | | TRIGLYCERIDES | e | | | procedure are in the | | | | | | results section. | + +--------+ + + + | EXTERNAL LAB: | Routin | 08/15/2019 | | Results for this | | CHOLESTEROL, HDL | e | | | procedure are in the | | | | | | results section. | + +--------+ + + + | EXTERNAL LAB: | Routin | 08/15/2019 | | Results for this | | CHOLESTEROL, TOTAL | e | | | procedure are in the | | | | | | results section. | + +--------+ + + + | EXTERNAL LAB: | Routin | 08/15/2019 | | Results for this | | CHOLESTEROL, LDL | e | | | procedure are in the | | | | | | results section. | + +--------+ + + + documented in this encounter Results Microalbumin/Creatinine Ratio, Urine (12/07/2019 10:58 AM PDT) + + + + + + | Component | Value | Ref Range | Performed | Pathologist | | | | | At | Signature | + + + + + + | Microalbumi | 25.1 (H) | <1.8 mg/dL | [facility] | | | n, Urine, | | | [facility] | | | [facility] | | | [facility] | | | | | | [facility] - | | | | | | LABORATORY | | + + + + + + | Creatinine, | 124 | mg/dL | [facility] | | | Urine, | | | [facility] | | | [facility] | | | [facility] | | | | | | [facility] - | | | | | | LABORATORY | | + + + + + + | Microalbumi | 202 (H) | <30 mg/g | [facility] | | | n/Creatinin | | | [facility] | | | ratio | | | MEDICAL | | | [...] + | [facility] | [address] | [place] | [phone] | | [facility] | | [address] | | | - LABORATORY | | | | + + + + + Microalbumin/Creatinine Ratio, Urine (09/07/2019 7:09 PM PST) + + + + + + | Component | Value | Ref Range | Performed | Pathologist | | | | | At | Signature | + + + + + + | Microalbumi | 30.5 (H) | <1.8 mg/dL | [facility] | | | n, Urine, | | | [facility] | | | [facility] | | | [facility] | | | | | | C[facility] - | | | | | | LABORATORY | | + + + + + + | Creatinine, | 202 | mg/dL | [facility] | | | Urine, | | | [facility] | | | [facility] | | | MEDICAL | | | | | | CENTER - | | | | | | LABORATORY | | + + + + + + | Microalbumi | 151 (H) | <30 mg/g | [facility] | | | n/Creatinin | | | [facility] | | | ratio | | | MEDICAL | | | [...] [address] | [place] | [phone] | | [facility] | | [address] | | | - LABORATORY | | | | + + + + + POCT Urinalysis (09/07/2019 10:51 AM PST) + + + + + [...] + + | Ketones, | Negative | Negative, 100 | | | | UA, POC | | mg/dL | | | + + + + + + | Specific | 1.030 | 1.001 - 1.030 | | | | Leonore, | | | | | | UA, POC | | | | | + + + + + + | Blood, UA, | Trace Intact (A) | Negative | | | | POC | | | | | + + + + + + | pH, UA, POC | 6.0 | 5.0, 6.0, 7.0, | | | [...] Leukocyte | Small (A) | Negative | | | | Esterase, | | | | | | UA, POC | | | | | + + + + + + | Remark | | | | | + + + + + + + + | Specimen | + + | Urine | + + External Lab: TSH (08/15/2019) + + + + + + | Component | Value | Ref Range | Performed | Pathologist | | | | | At | Signature | + + + + + + | TSH, | 0.32Comment: uIU/mL | | | | | External | | | | | + + + + + + + + | Specimen | + + | Blood | + + External Lab: Triglycerides (08/15/2019) + +-------+ + + + | Component | Value | Ref Range | Performed | Pathologist | | | | | At | Signature | + +-------+ + + + | Triglycerid | 146 | | | | | es, | | | | | | External | | | | | + +-------+ + + + + + | Specimen | + + | Blood | + + External Lab: Cholesterol, HDL (08/15/2019) + +-------+ + + + | Component | Value | Ref Range | Performed | Pathologist | | | | | At | Signature | + +-------+ + + + | HDL | 33 | mg/dl | | | | Cholesterol | | | | | | , External | | | | | + +-------+ + + + + + | Specimen | + + | Blood | + + External Lab: Cholesterol, Total (08/15/2019) + +-------+ + + + | Component | Value | Ref Range | Performed | Pathologist | | | | | At | Signature | + +-------+ + + + | Cholesterol | 143 | mg/dl | | | | , Total, | | | | | | External | | | | | + +-------+ + + + + + | Specimen | + + | Blood | + + External Lab: Cholesterol, LDL (08/15/2019) + +-------+ + + + | Component | Value | Ref Range | Performed | Pathologist | | | | | At | Signature | + +-------+ + + + | LDL | 81 | | | | | Cholesterol | | | | | | , Direct, | | | | | | External | | | | | + +-------+ + + + + + | Specimen | + + | Blood | + + documented in this encounter Visit Diagnoses + + | Diagnosis | + + | Essential hypertension - Primary Unspecified essential hypertension | + + | Impaired fasting glucose | + + | Hypothyroidism, unspecified type | + + | Ovarian cyst, left Other and unspecified ovarian cyst | + + | Tobacco abuse Tobacco use disorder | + + | Controlled type 2 diabetes mellitus without complication, without long-term current | | use of insulin (HCC) | + + documented in this encounter
--- OUTSIDE RECORDS SUMMARY | ~2020-05-24 | XMS | Encounter Summary ---
Demographics + + + | Address | [facility] | | | [place] [address] | + + + | Home Phone [...] + | Organization | [facility] | | | and [...] [place], [place] | | | | | [address] | | + + + + + | Amy Schneider | ECON | [address] | | | | | [place], [place] | | | | | [address] | | + + + + + | Alisha Schneider | ECON | Unknown | | + + + + + Care Team Providers + +------+ + | Care Undercover Cop Name | Role | Phone | + +------+ + | Jet Chaney MD | PCP | | + +------+ + Reason for Visit + + + | Reason | Comments | + + + | Insomnia | | + + + Encounter Details +--------+---------+ + + + | Date | Type | Department | Care Team | Description | +--------+---------+ + + + | 04/30/ | Office | [facility] | Jet Chaney, | Insomnia, | | 2017 | Visit | [facility] | [address] | unspecified type | | | | [address] | [place] | (Primary Dx); | | | | [place] | [address] | Chronic bilateral | | | | [address] | | low back pain | | | | [phone] | | without sciatica; | | | | | | Tobacco abuse; | | | | | | Impaired fasting | | | | | | glucose; | | | | | | Hypothyroidism, | | | | | | unspecified type; | | | | | | Preventative health | | | | | | care | +--------+---------+ + + + Social History [...] + + + | Blood Pressure | 126/84 | 04/30/2017 4:49 PM | | | | | PDT | | + + + + + | Pulse | 63 | 04/30/2017 4:49 PM | | | | | PDT | | + + + + + | Temperature | 37 C (98.6 F) | 04/30/2017 4:49 PM | | | | | PDT | | + + + + + | Respiratory Rate | 16 | 04/30/2017 4:49 PM | | | | | PDT | | + + + + + | Oxygen Saturation | 93% | 04/30/2017 4:49 PM | | | | | PDT | | + + + + + | Inhaled Oxygen | - | - | | | Concentration | | | | + + + + + | Weight | 93.2 kg (205 lb 6.4 | 04/30/2017 4:49 PM | | | | oz) | PDT | | + + + + + | Height | 157.5 cm (5' 2") | 04/30/2017 4:49 PM | | | | | PDT | | + + + + + | Body Mass Index | 37.57 | 04/30/2017 4:49 PM | | | | | PDT | | + + + + + documented in this encounter Patient Instructions Patient Instructions Jet Chaney MD - 04/30/2017 4:30 PM PDTKeep up the good work wi th the exercise. The best thing you can do for your health and sleep is quit smoking. Go to bed the same time every night, 7 nights per week. Wake up the same time every day, 7 days per week. Do NOT use electronic devices (TV, iPhone/smart phone, tablet) in bed. Continue to limit caffeine. Do not drink more than one caffeinated beverage per day and no ne after noon. You can try melatonin to help with sleep. This is available over the counter Please stop by the lab for blood work in August. You need to be fasting - nothing to eat or drink other than water or black coffee for 10 hours. No alcohol for 24 hours. The lab is open 7 AM Saturday-Saturday; 8 AM-4 PM on Saturdays (use Urgent Care entrance). Insomnia Insomnia is repeated difficulty going to sleep or staying asleep, or both. Whether you have insomnia is not defined by a specific amount of sleep. Different people need different amou nts of sleep, and you may need more or less sleep at different times of your life. There are3 major types of insomnia: short-term, chronic, and other. Short-term, or acute insomnia lasts less than3 months. The symptoms are temporary and can be linked directly to a stressor, such as the of a loved one, financial problems, or a new phys ical problem. Short-term insomnia stops when the stressor resolves or the person adapts to its presence. Chronic insomnia occurs at least3 times a week and lasts longer than 3 months. Chronic insomnia can occur when either the cause of the sleeping problem is not clear, or the insomn ia does not get better when the stressor is resolved. A number of other criteria are also us ed to make the diagnosis of chronic insomnia. Other insomnia is the third type of insomnia-related sleep disorders. This descript ion applies to people who have problems getting to sleep or staying asleep, but do not meet all of the factors that describe either short-term or chronic insomnia. Many things cause insomnia. Different people may have different causes. It can be from an u nderlying medical or psychological condition, or lifestyle. It can also be primary insomnia, which means no cause can be found. Causes of insomnia include: Chronic medical problems- heart disease, gastrointestinal problems, hormonal changes, br eathing problems Anxiety Stress Depression Pain Work schedule Sleep apnea Illegal drugs Certain medicines Many different medidcines can affect your sleep, such as stimulants, caffeine, alcohol, gareth e decongestants, and diet pills. Other medicines may include some types of blood pressure pi lls, steroids, asthma medicines, antihistamines, antidepressants, seizure medicines and stat ins. Not all of these will affect your sleep,and they shouldn t be stopped without talki ng to your doctor. Symptoms of insomnia can include: Lying awake for long periods at night before falling asleep Waking up several times during the night Waking up early in the morning and not being able to get back to sleep Feeling tired and not refreshed by sleep Not being able to function properly during the day and finding it hard to concentrate Irritability Tiredness and fatigue during the day Home care 1. Review your medicines with your doctor or pharmacist to find out if they can cause insom pepper. Not all medicines will affect your sleep,but they shouldn't be stopped without review ing them with your doctor. There may be serious side effects and consequences from suddenly stopping your medicines. Not taking them may cause strokes, heart attacks, and many other pr oblems. 2. Caffeine, smoking and alcohol also affect sleep. Limit your daily use and do not use the se before bedtime. Alcohol may make you sleepy at first, but as its effects wear off, you ma y awaken a few hours later and have trouble returning to sleep. 3. Do not exercise, eat or drink large amounts of liquid within 2 hours of your bedtime. 4. Improve your sleep habits. Have a fixed bed and wake-up time. Try to keep noise, light a nd heat in your bedroom at a comfortable level. Try using earplugs or eyeshades if needed. 5. Avoid watching TV in bed. 6. If you do not fall asleep within 30 minutes, try to relax by reading or listening to CME music. 7. Limit daytime napping to one 30 minute period, early in the day. 8. Get regular exercise. Find other ways to lessen your stress level. 9. If a medicine was prescribed to help reset your sleep patterns, take it as directed. Sle eping pills are intended for short-term use, only. If taken for too long, the effect wears o ff while the risk of physical addiction and psychological dependence increases. Sleep diary If the cause isn t obvious and it is not improving, try keeping a sleep diary for a couple of weeks. Include in it: The time you go to bed How long it takes to fall asleep How many times you wake up What time you wake up Your meal times and what you eat What time you drink alcohol Your exercise habits and times Follow-up care Follow up with your healthcare provider, or as advised. If X-rays or CT scans were done, yo u will be notified if there is a change in the reading, especially if it affects treatment. Call 911 Call 911 if any of these occur: Trouble breathing Confusion or trouble waking Fainting or loss of consciousness Rapid heart rate New chest, arm, shoulder, neck or upper back pain Trouble with speech or vision, weakness of an arm or leg Trouble walking or talking, loss of balance, numbness or weakness in one side of your jack dy, facial droop When to seek medical advice Call your healthcare provider right away if any of these occur: Extreme restlessness or irritability Confusion or hallucinations (seeing or hearing things that are not there) Anxiety, depression Several days without sleeping Date Last Reviewed: 08/04/201519997207-2642 [employer]. [address] [place] [address]. All righ ts reserved. This information is not intended as a substitute for professional medical care. Always follow your healthcare professional's instructions. documented in this encounter Progress Notes Jet Chaney MD - 04/30/2017 4:30 PM PDTFormatting of this note might be different fr om the original. Subjective: Patient ID: Baudilio Schneider is a 36 y.o. female here for back pain follow-up and help with sl eep. HPI She continues to have daily back pain but it is manageable. Pain is in band in lower back and does not radiate. Pain is worse after laying down for long periods and often wakes her up in the morning. She did not due PT due to working late and busy schedule. She stopped C ymbalta due to lack of improvement and side effect of fatigue and dizziness. Meloxicam does help. Facet injections are not covered by insurance. No paresthesias, bowel/bladder dysfu nction. She has appointment with rheumatology in September. She feels her diet is good. She is conscientious of carbohydrates in diet. She walks for exercise daily x 1 hour and plans to start treadmill. No weight loss, polyuria, polydipsia. She goes to bed between 8-9 PM on work nights and 10 PM on weekends. It takes her hours to fall asleep. She wakes up 4:15 AM on workdays and 6 or 7 AM on weekends. She has a TV in bedroom but rarely uses it. She continues to smoke, but no longer daily. She drinks 1-2 cu ps of coffee per week. No other caffeine. No naps. She previously took amitriptyline but caused fatigue the following day. Mood is "ok." Denies depression or anxiety. No drug or alcohol use. Patient's medications, allergies, past medical, surgical, social and family histories were obtained and reviewed as appropriate. Review of Systems Objective: BP 126/84 | Pulse 63 | Temp 37 C (98.6 F) (Temporal) | Resp 16 | Ht 1.575 m (5' 2") | Wt 93.2 kg (205 lb 6.4 oz) | SpO2 93% | BMI 37.57 kg/m Physical Exam Constitutional: She is oriented to person, place, and time. Very pleasant, obese, NAD Neck: Neck supple. No thyromegaly present. Cardiovascular: Normal rate, regular rhythm and normal heart sounds. Exam reveals no solorzano p. No murmur heard. Pulmonary/Chest: Effort normal. No respiratory distress. She has no wheezes. She has no ral es. Neurological: She is alert and oriented to person, place, and time. No cranial nerve defici t. Psychiatric: She has a normal mood and affect. Her behavior is normal. Thought content norm al. Appointment on 03/07/2017 Component Date Value Ref Range Status NA 03/07/2017 133* 136 - 149 mmol/L Final K 03/07/2017 3.5 3.5 - 5.1 mmol/L Final CL 03/07/2017 98 98 - 109 mmol/L Final CO2 03/07/2017 28 24 - 31 mmol/L Final ANION GAP 03/07/2017 7 3 - 16 mmol/L Final GLUCOSE 03/07/2017 120* 70 - 109 mg/dL Final BUN 03/07/2017 7 7 - 18 mg/dL Final Creatinine, Serum/Plasma 03/07/2017 0.64 0.60 - 1.30 mg/dL Final eGFR if not 03/07/2017 >60 >=60 mL/min/1.73m2 Final CALCIUM 03/07/2017 9.2 8.3 - 10.5 mg/dL Final BUN/CREA 03/07/2017 10.9 Final Hemoglobin A1c 03/07/2017 5.9 4.3 - 6.0 % Final Estimated Average Glucose 03/07/2017 123 mg/dL Final Assessment: Baudilio was seen today for insomnia. Diagnoses and all orders for this visit: Insomnia, unspecified type: - See AVS regarding lifestyle changes - Previously intolerant of amitriptyline. Consider trazodone if not improving with lifest yle and sleep hygiene Chronic bilateral low back pain without sciatica: Stable. Not compliant with PT. Facet i njections not covered. No relief with Cymbalta, nortriptyline. Did not tolerate amitriptyl ine. Dr Moore's note reviewed - considering repeat MRI. Given stability of symptoms, will not pursue at this time. Greatly appreciate his assistance - Weight loss, smoking cessation - Continue meloxicam - Encouraged PT - Establish with rheumatology as planned Tobacco abuse - Advised to quit Impaired fasting glucose: A1c improving - Diet, exercise, weight loss reviewed - Hemoglobin A1C; Future - Comprehensive Metabolic Panel; Future Hypothyroidism, unspecified type - TSH; Future Preventative health care - Comprehensive Metabolic Panel; Future - Lipid Panel; Future Return in about 4 months (around 08/30/2017), or if symptoms worsen or fail to improve. wit h fasting labs Prashanth Chaney MD raik, Kemi Dempsey, LP N - 04/30/2017 4:30 PM PDTPatient is here for a general follow-up and she complains of inso mnia. documented in t his encounter Plan of Treatment Not on filedocumented as of this encounter Results Lipid Panel (09/12/2017 10:45 AM PST) + + + + + + | Component | Value | Ref Range | Performed | Pathologist | | | | | At | Signature | + + + + + + | Triglycerid | 172 (H) | 35 - 160 mg/dL | [facility] | | | es | | | [facility] | | | | | | [facility] | | | | | | [facility] - | | | | | | LABORATORY | | + + + + + + | Cholesterol | 139 (L) | 140 - 200 mg/dL | [facility] | | | | | | [facility] | | | | | | [facility] | | | | | | C[facility] - | | | | | | LABORATORY | | + + + + + + | HDL | 35Comment: New HDL | 28 - 83 mg/dL | [facility] | | | | Reference Range as of | | [facility] | | | | May 26, 2015 | | MEDICAL | | | | Values may be 10-20% | | CENTER - | | | | lower with new, | | LABORATORY | | | | standardized method. | | | | + + + + + + | Chol/HDL | 4.0 | | [facility] | | | Ratio | | | [facility] | | | | | | MEDICAL | | | | | | CENTER - | | | | | | LABORATORY | | + + + + + + | LDL, | 70 | <=130 mg/dL | [facility] | | [...] [address] | [place] | [phone] | | [facility] | | [address] | | | - LABORATORY | | | | + + + + + Comprehensive Metabolic Panel (09/12/2017 10:45 AM PST) + + + + + + | Component | Value | Ref Range | Performed | Pathologist | | | | | At | Signature | + + + + + + | Na | 135 (L) | 136 - 149 | [facility] [...] + + + | Anion Gap | 3 | 3 - 16 mmol/L | [facility] | | | | | | [facility] | | | | | | [facility] | | | | | | [facility] - | | | | | | LABORATORY | | + + + + + + | Glucose | 96 | 70 - 109 mg/dL | [facility] | | | | | | [facility] | | | | | | [facility] | | | | | | [facility] - | | | | | | LABORATORY | | + + + + + + | BUN | 5 (L) | 7 - 18 mg/dL | [facility] | | | | | | [facility] | | | | | | [facility] | | | | | | C[facility] - | | | | | | LABORATORY | | + + + + + + | Creatinine | 0.56 (L) | 0.60 - 1.30 | [facility] | | | | | mg/dL | [facility] | | | | | | [facility] | | | | | | [facility] - | | | | | | LABORATORY | | + + + + + + | eGFR, | >60Comment: GLOMERULAR | >=60 | [facility] | | | non- | FILTRATION | mL/min/1.73m2 | [facility] | | | [place] | RATE,ESTIMATED | | MEDICAL | | | | mL/min/1.14i4Orcd than | | CENTER - | | [...] | | | | | mg/dL | [facility] | | | | | | MEDICAL | | | | | | CENTER - | | | | | | LABORATORY | | + + + + + + | Albumin | 3.7 | 3.2 - 5.0 g/dL | [facility] | | | | | | [facility] | | | | | | [facility] | | | | | | CENTER - | | | | | | LABORATORY | | + + + + + + | Bilirubin | 0.5 | 0.1 - 1.5 mg/dL | [facility] [...] + + | AST | 21 | 10 - 42 U/L | [facility] | | | | | | [facility] | | | | | | MEDICAL | | | | | | CENTER - | | | | | | LABORATORY | | + + + + + + | ALT | 31 | 6 - 45 U/L | [facility] [...] + + + + | Globulin | 3.4 | 2.1 - 3.8 g/dL | [facility] | | | | | | [facility] | | | | | | [facility] | | | | | | CENTER - | | | | | | LABORATORY | | + + + + + + | Albumin/Lynn | 1.1 | 0.8 - 2.0 | [facility] | | | bulin Ratio | | | [facility] | | | | | | MEDICAL | | | | | | CENTER - | | | | | | LABORATORY | | + + + + + + | BUN/Creatin | 8.9 | | [facility] | | | ine [...] + | [facility] | [address] | [place] | [phone] | | [facility] | | [address] | | | - LABORATORY | | | | + + + + + Hemoglobin A1C (09/12/2017 10:45 AM PST) + +---------+ + + + [...] [address] | [place] | [phone] | | [facility] | | [address] | | | - LABORATORY | | | | + + + + + TSH (09/12/2017 10:45 AM PST) + + + + + + | Component | Value | Ref Range | Performed | Pathologist | | | | | At | Signature | + + + + + + | TSH | 0.79Comment: All TSH | 0.34 - 5.60 | [...] [address] | [place] | [phone] | | [facility] | | [address] | | | - LABORATORY | | | | + + + + + documented in this encounter Visit Diagnoses + + | Diagnosis | + + | Insomnia, unspecified type - Primary | + + | Chronic bilateral low back pain without sciatica | + + | Tobacco abuse Tobacco use disorder | + + | Impaired fasting glucose | + + | Hypothyroidism, unspecified type | + + | Preventative health care Routine general medical examination at a health care | | facility | + + documented in this encounter
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
--- OUTSIDE RECORDS SUMMARY | ~2020-05-24 | XMS | Encounter Summary ---
Demographics + + + | Address | [facility] | | | [place] [address] | + + + | Home Phone | | + + + | Preferred Language | Unknown | + + + | Marital Status | Single | + + + | Methodist Affiliation | [id number] | + + + | Race | Unknown | + + + | Ethnic Group | or | + + + Author + + + | Author | [facility] | | | and [place] | + + + | Organization | [facility] | | | and [...] [place], [place] | | | | | [address] | | + + + + + | Amy Schneider | ECON | [address] | | | | | [place], [place] | | | | | [address] | | + + + + + | Alisha Schneider | ECON | Unknown | | + + + + + Care Team Providers + +------+ + | Care Investigations Chief Name | Role | Phone | + +------+ + | Jet Chaney MD | PCP | | + +------+ + Reason for Visit + +--------+ + | Reason | Onset | Comments | | | Date | | + +--------+ + | Letter for | 03/05/ | | | School/Work | 2016 | | + +--------+ + Encounter Details +--------+ + + + + | Date | Type | Department | Care Team | Description | +--------+ + + + + | 03/05/ | Telephone | [facility] | Jet Chaney, | Letter for | | 2015 | | [facility] [place] | [address] | School/Work | | | | [address] | [place] | | | | | [place] | [address] | | | | | [address] | | | | | | [phone] | | | +--------+ + + + [...] this encounter Miscellaneous Notes Telephone Encounter - Bell Nolan - 03/05/2016 2:22 PM PDTCalled patient. No answe r. Voicemail not setup. Letter in cabinet.Electronically signed by Bell Nolan at 2:22 PM PDTTelephone Encounter - Jet Chaney MD - 03/05/2016 12:44 PM PDTLett er signed and in folder to Front Office. Thanks! Prashanth Chaney MD elephone Encounter - Tamar Lugo RN - 03/05/2016 11:22 AM PDTPatient calls. She saw Dr. Chaney 03/02 a nd forgot to ask for a doctor's note. She just needs a letter from him stating she was seen in clinic 03/02. Needs this for work. 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 She can be reached at [phone]. Electr onically signed by Tamar Lugo RN at 03/05/2016 11:23 AM PDTdocumented in this encoun ter Plan of Treatment Not on filedocumented as of this encounter Visit Diagnoses Not on filedocumented in this encounter"
--- OUTSIDE RECORDS SUMMARY | ~2020-05-24 | XMS | Encounter Summary ---
Demographics + + + | Address | [facility] | | | [place] [address] | + + + | Home Phone [...] Organization | [facility] | | | and [...] [place], [place] | | | | | [address] | | + + + + + | Amy Schneider | ECON | [address] | | | | | [place], [place] | | | | | [address] | | + + + + + | Alisha Schneider | ECON | Unknown | | + + + + + Care Team Providers + +------+ + | Care Small Arms Repairer Name | Role | Phone | [...] | | | Services | Therapy | Back pain | Jet Dempsey MD | Pt Acute | | | Required | | Procedures | [address] | [address] | | | | | [place] | [address] [place] | [place], | | | | | THERAPEUTIC | [place] | [place] | | | | | EXERCISES | [address] | [address] | | | | | | Phone: | Phone: | | | | | | [phone] | [phone] | | | | | | Fax: | Fax: | | | | | | [phone] | [phone] | +--------+ + + + + + Reason for Visit + + + | Reason | Comments | + + + | New Patient | Establish care | + + + Encounter Details +--------+---------+ + + + | Date | Type | Department | Care Team | Description | +--------+---------+ + + + | 07/04/ | Office | [facility] | Jet Chaney, | Back pain (Primary | | 2011 | Visit | [facility] [place] | [address] | Dx); Seasonal | | | | [address] | [place], [place] | allergies; Tobacco | | | | [place], [place] | [address] | abuse; Chest pain, | | | | [address] | | musculoskeletal; | | | | [phone] | | Hypothyroidism | +--------+---------+ + + [...] + + + | Blood Pressure | 104/78 | 07/04/2012 10:29 AM | | | | | PDT | | + + + + + | Pulse | 72 | 07/04/2012 10:29 AM | | | | | PDT | | + + + + + | Temperature | 35.9 C (96.7 F) | 07/04/2012 10:29 AM | | | | | PDT | | + + + + + | Respiratory Rate | 16 | 07/04/2012 10:29 AM | | | | | PDT | | + + + + + | Oxygen Saturation | - | - | | + + + + + | Inhaled Oxygen | - | - | | | Concentration | | | | + + + + + | Weight | 100 kg (220 lb 6.4 | 07/04/2012 10:29 AM | | | | oz) | PDT | | + + + + + | Height | 160 cm (5' 3") | 07/04/2012 10:29 AM | | | | | PDT | | + + + + + | Body Mass Index | 39.04 | 07/04/2012 10:29 AM | | | | | PDT | | + + + + + documented in this encounter Patient Instructions Patient Instructions Jet Chaney MD - 07/04/2012 11:26 AM PDTPlease sign a release of information to get records from Dr Mitchell TO QUIT SMOKING Smoking is one of the hardest habits to break. About half of all those who have ever smoked have been able to quit, and most of those (about 70%) who still smoke want to quit. Here ar e some of the best ways to stop smoking. KEEP TRYING: It takes most smokers about 8 tries before they are finally able to fully quit. So, the mor e often you try and fail, the better your chance of quitting the next time! So, don't give u p! GO COLD TURKEY: Most ex-smokers quit cold turkey. Trying to cut back gradually doesn't seem to work as well , perhaps because it continues the smoking habit. Also, it is possible to fool yourself by i nhaling more while smoking fewer cigarettes. This results in the same amount of nicotine in your body! GET SUPPORT: Support programs can make an important difference, especially for the heavy smoker. These g roups offer lectures, methods to change your behavior and peer support. Call the [facility] Quitline for more information. 642-IOZS-NRR (794-776-5047). Low-cost or free programs are offered by many hospitals, local chapters of the [place] [employer] (480-460-1166) a nd the [place] [employer] (560-080-4492). Support at home is important too. Non-smokers can help by offering praise and encouragement. If the smoker fails to quit, encourage them to try again! SNBT-CAN-STQBWVQ MEDICINES: For those who can't quit on their [...] stop using these and see your doctor. PRESCRIPTION MEDICINES: After evaluating your smoking patterns and prior attempts at quitting, your doctor may offe r a prescription medicine such as bupropion (Zyban, Wellbutrin), varenicline (Chantix, [place] ix), a niocotine inhaler or nasal spray. Each has its unique advantage and side effects whic h your doctor can review with you. HEALTH BENEFITS OF QUITTING: The benefits of quitting start right away [...] smoking, visit the following links: National Cancer [place] , Clearing the Air, Quit Smoking Today - an online valencia klet. http://www.smokefree.gov/pubs/clearing_the_air.pdf Smokefree.gov http://smokefree.gov/ QuitNet http://www.quitnet.com/ 3305-9003 Yany Agustin, [address] [place] [address], [place] [address]. All rights reserve d. This information is not intended as a substitute for professional medical care. Always fo llow your healthcare professional's instructions.EXERCISES TO STRENGTHEN YOUR LOWER BACK Strong lower-back [...] Hold for 2 seconds, then slowly lower. [phone] [facility], [address] [place] [address]. All rights reserve d. This information is not intended as a substitute for professional medical care. Always fo llow your healthcare professional's instructions. documented in this encounter Progress Notes Jet Chaney MD - 07/04/2012 11:13 AM PDTFormatting of this note might be different fr om the original. Subjective: Patient ID: Baudilio Schneider is a 31 y.o. female. Back Pain This is a chronic problem. The current episode started more than 1 year ago. Episode freque ncy: Bilateral lumbar pain worse in the morning and improves as the day goes on. Progression since onset: Fluctuates. The pain is present in the lumbar spine. The quality of the pain i s described as aching and cramping. The pain does not radiate. Pain scale: At worst rates 10 /10, at its best 6/10. Worse during: Worst first thing in morning. Exacerbated by: Nothing. Associated symptoms include chest pain. Pertinent negatives include no bladder incontinence, bowel incontinence, fever, leg pain, numbness or weight loss. Risk factors include obesity. She has tried heat (Ibuprofen 600 mg q 4 hrs prn ) for the symptoms. Improvement on treatme nt: NSAIDs and heat provide small amount of relief. Chest Pain This is a chronic problem. The current episode started more than 1 year ago. Episode freque ncy: intermittent, can last minutes to hours. The problem has been unchanged. The pain is pr esent in the lateral region. Quality: ache. The pain does not radiate. Associated symptoms i nclude back pain. Pertinent negatives include no diaphoresis, dizziness, exertional chest pr essure, fever, leg pain, nausea, near-syncope, numbness, shortness of breath, syncope or vom iting. Associated with: worse with palpation. She has tried nothing for the symptoms. 2 new papules on face. Patient's medications, allergies, past medical, surgical, social and family histories were reviewed and updated as appropriate. Review of Systems Constitutional: Negative for fever, weight loss and diaphoresis. Respiratory: Negative for shortness of breath. Cardiovascular: Positive for chest pain. Negative for syncope and near-syncope. Gastrointestinal: Negative for nausea, vomiting and bowel incontinence. Genitourinary: Negative for bladder incontinence. Musculoskeletal: Positive for back pain. Neurological: Negative for dizziness and numbness. BP 104/78 | Pulse 72 | Temp(Src) 35.9 C (96.7 F) (Oral) | Resp 16 | Ht 1.6 m (5' 3") | Wt 99.973 kg (220 lb 6.4 oz) | BMI 39.04 kg/m2 | LMP 06/28/2012 | ? No Objective: Physical Exam Constitutional: She appears well-developed and well-nourished. No distress. HENT: Head: Normocephalic. Eyes: No scleral icterus. Neck: Neck supple. No thyromegaly present. Cardiovascular: Normal rate, regular rhythm, normal heart sounds and intact distal pulses. Exam reveals no gallop and no friction rub. No murmur heard. Pulmonary/Chest: Breath sounds normal. No respiratory distress. She has no wheezes. She has no rales. She exhibits no tenderness (No chest pain today). Musculoskeletal: She exhibits no edema. Mild bilateral lumbar tenderness. No vertebral tenderness. Full strength in LE's. N o asymmetry of LE's. Lymphadenopathy: She has no cervical adenopathy. Neurological: 1+ symmetric reflexes in patella and achilles. Gait normal Skin: 2 flesh colored papules ~2 mm in diameter, one with central umbilication Assessment/Plan: Back pain Likely muscle strain. No red flag symptoms. - Advised back exercises (handout provided), weight loss, and NSAIDs - Ambulatory referral to Physical Therapy - naproxen sodium (ANAPROX) 550 MG tablet; Take 1 tablet by mouth Twice daily as needed ( back pain). Take with food. Seasonal allergies - Will discuss further at next visit Tobacco abuse - Advised to quit Chest pain, musculoskeletal: Chronic. Suspect costocondritis given reproducibility and lo cation. No associated symptoms to suspect cardiac or pulm etiology. - NSAIDs - Monitor Hypothyroidism - Request most recent labs from [facility] [employer] Skin Papules: Possible molluscum - Return for freezing if becomes symptomatic or she wants them removed FU: 1 month Prashanth Chaney MD Kemi Jaime LP N - 07/04/2012 10:37 AM PDTPatient wants something for allergies that won't make her drowsy. Pain to touch by her heart off and on. Sometimes after eating she feels nauseated. documented in this encounter Miscellaneous Notes Miscellaneous - MAKEDA YANES - 07/04/2012 12:00 AM PDT documented in this encounter Plan of Treatment + + +--------+ + + | Name | Type | Priori | Associated Diagnoses | Order Schedule | | | | ty | | | + + +--------+ + + | Ambulatory referral | Outpatient | Routin | Back pain | Ordered: 07/04/2012 | | to Physical Therapy | Referral | e | | | + + +--------+ + + documented as of this encounter Visit Diagnoses + + | Diagnosis | + + | Back pain - Primary Backache, unspecified | + + | Seasonal allergies Allergic rhinitis, cause unspecified | + + | Tobacco abuse Tobacco use disorder | + + | Chest pain, musculoskeletal Other chest pain | + + | Hypothyroidism Unspecified hypothyroidism | + + documented in this encounter
--- OUTSIDE RECORDS SUMMARY | ~2020-05-24 | XMS | Encounter Summary ---
Demographics + + + | Address | [facility] | | | [place] [address] | + + + | Home Phone | | + + + | Preferred Language | Unknown | + + + | Marital Status | Single | + + + | Gnosticism Affiliation | [id number] | + + + | Race | Unknown | + + + | Ethnic Group | or | + + + Author + + + | Author | [facility] | | | and [place] | + + + | Organization | [facility] | | | and [...] [place], [place] | | | | | [address] | | + + + + + | Amy Schneider | ECON | [address] | | | | | [place], [place] | | | | | [address] | | + + + + + | Alisha Schneider | ECON | Unknown | | + + + + + Care Team Providers + +------+ + | Care Professor Of Religious Studies Name | Role | Phone | + +------+ + | Dot Paredes MD | PCP | | + +------+ + Encounter Details +--------+ + + + + | Date | Type | Department | Care Team | Description | +--------+ + + + + | 02/02/ | Hospital | [facility] | | | | 2011 - | Encounter | [facility] | | | | | | [facility] [address] | | | | 02/04/ | | [place], | | | | 2011 | | [place] [address] | | | | | | [phone] | | | +--------+ + + + [...] + + + +---------+ + + | erythromycin with | apply two times | | 0 | 03/27/20 | | | ethanol (THERAMYCIN) | daily to affected | | | 11 | 2 | | 2 % external | area twice daily | | | | | | solution | | | | | | + + + +---------+ + + | levothyroxine | Take 50 mcg by mouth | | 0 | 01/25/20 | | | (LEVOXYL) 50 mcg | Daily. | | | 10 | 2 | | tablet | | | | | | + + + +---------+ + + | mometasone | one spray each | | 0 | 03/27/20 | | | (NASONEX) 50 | nostril two times | | | 11 | 2 | | mcg/nasal spray | daily | | | | | + + + +---------+ + + | montelukast | Take 10 mg by mouth | | 0 | 03/27/20 | | | (SINGULAIR) 10 mg | Daily. | | | 11 | 2 | | tablet | | | | | | + + + +---------+ + + | Naproxen Sodium | Take 750 mg by mouth | | 0 | 03/27/20 | | | (NAPRELAN) 750 MG | Daily. | | | 11 | 2 | | TB24 | | | | | | + + + +---------+ + + | Psyllium | one by mouth twice a | | 0 | 08/07/20 | | | (METAMUCIL) WAFR | day | | | 10 | 2 | + + + +---------+ + + | traMADol (ULTRAM) | Take 50 mg by mouth | | 0 | 03/27/20 | | | 50 mg tablet | Twice daily as | | | 11 | 2 | | | needed. | | | | | + + + +---------+ + + documented as of this encounter Miscellaneous Notes L&D Delivery Note - Pieter Hoff Rosa D - 02/03/2012 8:50 AM PDTDATE: 02/05/2012 HISTORY: Baudilio is a 31-year-old, 4, now para 4-0-0-4 female who deliver ed a male , NSVB, at 40-3/7 weeks gestation on 02/03/2012. Baudilio noted the onset of contractions at 0300 hours on 02/03/2012 and by 0400 hours she felt her labor contractions were consistent and more painful. She proceeded to the hospital shortly after that. She guillen s received routine care at [facility]. Her has been complicated by obesity, hypothyroidism and excessive weight gain greater than 40 pounds. STAGE I: 0300 to 5 hours. Stage I characterized by very stable heart tones. Init dennyy, progress seemed to be fairly steady, however, very little station change was noted b etween approximately 1250 hours until 1800 hours. At issue seemed to be poor maternal relax ation and pain control. Initially pain control was with relaxation breathing, position dejesus ges as well as fentanyl IV administration. Once Evgenyl became increasingly painful and fati gued she did request epidural anesthesia. The on-call anesthesiologist was not readily av ailable and epidural anesthesia was not placed until approximately 1515 hours , about 1-1.5 hours after initially requested. Unfortunately, the epidural anesthesia did not provide an y pain relief for Sochil. The anesthesiologist was notified within 40 minutes that the epi dural did not seem to be providing adequate pain relief. Unfortunately, the anesthesiologi st was not available again until approximately 1730 hours. In the meantime, because Baudilio was noting significant discomfort, additional dosings of fentanyl narcotic were provided. Also, during that time she was asked to provide some trial pushing efforts while the cervi x was stabilized to see if station change could be affected. After just a few pushing effo rts it was determined that those pushing efforts were not effective and she was asked to co ntinue to breathe through her contractions. Again, she was maintained as comfortable as po ssible with position changes, relaxation breathing and fentanyl. Prior to this trial of p ushing efforts, at approximately 1610 hours, AROM augmentation was done with use of an Amni hook without difficulty for clear fluid. By 1944 hours still the fetus still had not had significant station change, station was th ought to be approximately 0 to +1. There was also evidence of large caput and molding of t he vertex. At one point the presentation was thought to be transverse but possibly could h ave been posterior at some portion during the labor because of the intense back pain that Ruma espinoza had noted. Pitocin was began per protocol at approximately 2000 hours for additional augmentation. By approximately 2039 hours the exam seemed to be very similar, still 0/+1 station. Another trial of pushing effort was done. It was thought that since the epidura l had been replaced and Baudilio was able to receive at least an hour of good sleep and rest, that perhaps she might have enough energy with stabilization of her cervix to help her bab y descend. Trial of pushing seemed to have good effect and pushing was continued at that t sally. Sochil was considered to be complete at 2044 hours. STAGE II: From 2044 until 2148 hours. Evgenyl was able to give a great pushing effort, it s eemed, however, in light of the epidural dosing, minimal station change had occurred after about 1 hour. The epidural dosing was decreased at that time and Nailasudeepesther was able to delive r within 20 minutes or so after that decrease in epidural dosing. heart tones for th e most part remained stable. There were some deceleration to 110s, 100s with occasional pu shing efforts but with good return to baseline. Most heart tones recorded 130s and 140s. The 's head delivered fairly easily, OA, however, it became soon apparent that the s houlders would be tight and difficult. There was not presence of nuchal cord. The posteri or shoulder, which was the left, was grasped from behind and efforts were made to rotate th e shoulder in a clockwise fashion. While doing this, nursing staff did place suprapubic pr essure on the anterior shoulder. It was difficult to reach the shoulder and axilla, and th e nurse felt it was difficult for the anterior shoulder to release under the mother's pubi c bone. We continued with these maneuvers and the mother was placed in Reza' position . Eventually the posterior shoulder did release, however, not until the left humerus did sharp stain a fracture. Immediately after that the shoulders did release, the was deliver ed. Total time from head to body delivery was approximately 2-1/2 minutes. Resuscitation included drying and cord pulsation as well as suction of the mouth and then nose for clear secretions. After suctioning was accomplished, the cord was doubly clamped and then cut, then the infant was handed to the nursing staff for further care. The was taken to the radiant warmer for further care by the nursing and respiratory staff. Cord gas was marisa wn and results obtained later revealed the pH to be 7.25. Apgars were 8 and 9 at one and f ashok minutes, respectively. The weighed 8 pounds 8 ounces. Shortly after the the nurses supervisor, Alesia Luna M.D., was notified of the infant's and also the left humeral fracture. EBL thought to be 350 ml. Maternal hemostasis was accomplished with remaining Pitocin infu sed as bolus. STAGE III: From 2149 to 2153 hours. The placenta delivered spontaneously and intact. The c ord was noted to have 3 vessels and was centrally inserted. Repair included approximation of a small vaginal first to second degree laceration. This was repaired with 3-[address] instillation of local anesthesia. Shortly after the and the 's stabilization (including the left arm) he was ret urned to the mother for holding and feeding. When the nurses supervisor arrived the was taken to the nursery for further care including an X-ray of the left arm which did reveal f racture of the humerus. After that, the infant's arm was re-stabilized and once again the was returned to the mother. The did have good breast feeding attempt. The in leah will be further monitored for care of the left arm, and the nurses supervisor has ordered a n orthopedic consult. The mother's bleeding is well controlled and the fundus is firm. T he mother and are expected to do well. DICTATED BY: Rosa Stapleton CNM Transportation Clerk JOB #: [id number] EXT JOB #:[id number] <Electronicall y Signed by Rosa Stapleton CNM> 02/21/12 1219 documented in this encounter Plan of Treatment Not on filedocumented as of this encounter Procedures + +--------+ + + + | Procedure Name | Priori | Date/Time | Associated Diagnosis | Comments | | | ty | | | | + +--------+ + + + | HEMOGLOBIN AND | Routin | 02/04/2012 | | Results for this | | HEMATOCRIT | e | 6:51 AM | | procedure are in the | | | | PDT | | results section. | + +--------+ + + + documented in this encounter Results Hemoglobin and Hematocrit (02/04/2012 6:51 AM PDT) + +-------+ + + + | Component | Value | Ref Range | Performed | Pathologist | | | | | At | Signature | + +-------+ + + + | Hemoglobin | 12.0 | 11.5 - 16.0 | [facility] | | | | | gm/dL | [facility] | | | | | | [facility] | | | | | | [facility] - | | | | | | LABORATORY | | + +-------+ + + + | Hematocrit | 34.7 | 34.0 - 47.0 % | [facility] | | | | | [...] + | [facility] | [address] | [place], [place] | [phone] | | [facility] | | [address] | | | - LABORATORY | | | | + + + + + | [facility] | [address] | [place], [place] | | | [facility] | | [address] [place] [address] | | | - LABORATORY | | | | + + + + + documented in this encounter Visit Diagnoses Not on filedocumented in this encounter"
--- OUTSIDE RECORDS SUMMARY | ~2020-05-24 | XMS | Encounter Summary ---
Demographics + + + | Address | [facility] | | | [place] [address] | + + + | Home Phone [...] Organization | [facility] | [...] [place], [place] | | | | | [address] | | + + + + + | Amy Schneider | ECON | [address] | | | | | [place], [place] | | | | | [address] | | + + + + + | Alisha Schneider | ECON | Unknown | | + + + + + Care Team Providers + +------+ + | Care Aviation Manager Name | Role | Phone | + +------+ + | Jet Chaney MD | PCP | | + +------+ + Reason for Visit +---------+--------+ + | Reason | Onset | Comments | | | Date | | +---------+--------+ + | Results | 07/20/ | | | | 2012 | | +---------+--------+ + Encounter Details +--------+ + + + + | Date | Type | Department | Care Team | Description | +--------+ + + + + | 07/20/ | Telephone | [facility] | Jet Chaney, | Results | | 2012 | | [facility] [place] | [address] | | | | | [address] | [place] | | | | | [place] | [address] | | | | | [address] | | | | | | [phone] | | | +--------+ + + + [...] - Cherri Hsu Master of Arts - 07/21/2013 2:42 PM PSTCalled yessy nt to notify her of results. Patient verbalized understanding. Reminded her that she needs t o call her insurance and change her PCP to in order for the referral to gastroen terology to be completed. Patient verbalized understanding and stated she would be calling h er insurance to get PCP changed. elephone Encounter - Cherri Hsu Master of Arts - 07/21/2013 11:58 AM PSTCalled patient with no success. Left message for her to call back. elephone Encounter - Nellie Castellanos Master of Arts - 07/21/2013 8:14 AM PSTMessage left for rosendastephanie t to call back. A M PSTTelephone Encounter - Jet Chaney MD - 07/20/2013 5:27 PM PSTWill you please let Sochil know her labs are normal. Her thyroid level is back to normal and her H Pylori scre en was negative. Apparently her insurance does not have me listed as her PCP - the referral to gastroenterology is delayed until this is corrected. Thanks, Prashanth Chaney MD documented in this e ncounter Plan of Treatment Not on filedocumented as of this encounter Visit Diagnoses Not on filedocumented in this encounter"
--- OUTSIDE RECORDS SUMMARY | ~2020-05-24 | XMS | Encounter Summary ---
Demographics + + + | Address | [facility] | | | [place] [address] | + + + | Home Phone [...] + + | Author | [facility] | | | and [place] | + + + | Organization | [facility] | [...] [place], [place] | | | | | [address] | | + + + + + | Amy Schneider | ECON | [address] | | | | | [place], [place] | | | | | [address] | | + + + + + | Alisha Schneider | ECON | Unknown | | + + + + + Care Team Providers + +------+ + | Care Quarantine Inspector Name | Role | Phone | + +------+ + | Jet Chaney MD | PCP | | + +------+ + Reason for Visit + +--------+ + | Reason | Onset | Comments | | | Date | | + +--------+ + | Appointment | / | | | | 2015 | | + +--------+ + Encounter Details +--------+ + + + + | Date | Type | Department | Care Team | Description | +--------+ + + + + | / | Telephone | [facility] | Jet Chaney, | Appointment | | 2015 | | [facility] | [address] | | | | | [address] | [place] | | | | | [place] | [address] | | | | | [address] | | | | | | [phone] | | | +--------+ + + + [...] this encounter Miscellaneous Notes Telephone Encounter - Keim Williamson LPN - 11/25/2015 10:17 AM PSTCalled and left a deta iled message on her voicemail. 10 :18 AM PSTTelephone Encounter - Kemi Williamson LPN - 11/24/2015 9:44 AM PSTCalled catia t and unable to leave a message to call back since her voicemail has not been set up yet.Ana Lilia ctronically signed by Kemi Williamson LPN at 11/24/2015 9:46 AM PSTTelephone Encounter - Kemi Pedro LPN - 11/23/2015 10:16 AM PSTCalled patient but unable to leave a message t o call back since her voicemail has not been set up. elephone Encounter - Kemi Williamson LPN - 11/22/2015 5: 28 PM PSTCalled prescription into [facility]. Called patient and unable to reach her or leav e a message to call back. P M PSTTelephone Encounter - Jet Chaney MD - 11/22/2015 5:27 PM PSTWill you please dora l in xanax. Please educate her that she will need someone to drive her home from the MRI if she needs xanax. Don't mix xanax with alcohol. Thanks, Prashanth Chaney MD elephone Encounter - Tamar Lugo RN - 11/22/2015 1:46 PM PSTPatient returns call. Gave her MRI appoint ment 11/24 at 3 PM, check in 2:30. Patient has never had an MRI, but thinks she may be claust rophobic. Please advise. el ephone Encounter - Kemi Williamson LPN - 11/18/2015 9:13 AM PSTTried reaching patient aga in and unable to leave a message to call back. elephone Encounter - Kemi Williamson LPN - 11/17/2015 3:19 PM PSTCalled patient and she is not accepting calls at this time. Mychart message sent to yessy portillo with her MRI appointment. 3:2 3 PM PSTTelephone Encounter - Kemi Williamson LPN - 11/17/2015 10:17 AM PSTPatient no-show ed for the MRI. Rescheduled for 11/24 at 3pm with a check-in at 2:30. elephone Encounter - Kemi Williamson LPN - 11/15/2015 10:55 AM PSTCalled patient and unable to leave a message. Mychart message sen t to patient. elepho ne Encounter - Kemi Williamson LPN - 11/14/2015 5:18 PM PSTCalled Imaging and change MRI appointment to 11/15 at 10:30 with a check-in at 10AM. elephone Encounter - Kemi Williamson LPN - 11/14/2015 4: 04 PM PSTTried reaching patient again and unable to leave a message on her voicemail. elephone Encounter - Kemi Williamson LPN - 11/14/2015 11:42 AM PSTPatient is scheduled for a MRI on 11/14 at 2 :30 with a check-in at 2pm. Is she claustrophobic? Called patient and left a message to dora lopez. documented in this encounter Plan of Treatment Not on filedocumented as of this encounter Visit Diagnoses + + | Diagnosis | + + | Claustrophobia - Primary Other isolated or specific phobias | + + documented in this encounter"
--- OUTSIDE RECORDS SUMMARY | ~2020-05-24 | XMS | Encounter Summary ---
Demographics + + + | Address | [facility] | | | [place] [address] | + + + | Home Phone [...] Organization | [facility] | | | and [place] [...] [place], [place] | | | | | [address] | | + + + + + | Amy Schneider | ECON | [address] | | | | | [place], [place] | | | | | [address] | | + + + + + | Alisha Schneider | ECON | Unknown | | + + + + + Care Team Providers + +------+ + | Care Supervisor Die Casting Name | Role | Phone | + +------+ + | Jet Chaney MD | PCP | | + +------+ + Reason for Visit + +--------+ + | Reason | Onset | Comments | | | Date | | + +--------+ + | Injections | 05/21/ | | | | 2019 | | + +--------+ + Encounter Details +--------+ + + + + | Date | Type | Department | Care Team | Description | +--------+ + + + + | 05/21/ | Telephone | [facility] | Rosalio Wyatt, | Injections | | 2018 | | [address]SIATRY [address] | PA-C [address] | | | | | [address] | [address] [place] | | | | | [place] | [place] [address] | | | | | [address] | [phone] | | | | | [phone] | | | +--------+ + + + [...] Notes Telephone Encounter - Lizzy Appiah - 05/21/2019 11:10 AM PDTPatient [facility] needs referral A M PDTdocumented in this encounter Plan of Treatment Not on filedocumented as of this encounter Visit Diagnoses Not on filedocumented in this encounter"
[~2020-05-24 06:55] MED LIST: LEVOTHYROXINE100 MCG PO
[2020-05-24] MEDS ORDERED: PROTONIX40 MG PO (07:15)
[2020-05-24] MEDS ORDERED: GLUCOPHAGE500 MG PO (07:15)
[2020-05-24] MEDS ORDERED: LISINOPRIL20 MG PO (07:16)
[2020-05-24] MEDS ORDERED: KEFLEX500 MG PO (07:38)
== END 2020-05-24 07:50 | disposition home or self-care (01) ==
LOC: ED 06:55
PROC: 3E0T3BZ Introduction of Anesthetic Agent into Peripheral Nerves and Plexi, Percutaneous Approach (ICD-10-PCS; principal; 2020-05-24)
DX: S61.243A Puncture wound with foreign body of left middle finger without damage to nail, initial encounter (principal); W22.8XXA Striking against or struck by other objects, initial encounter; E03.9 Hypothyroidism, unspecified; F17.200 Nicotine dependence, unspecified, uncomplicated; Z88.5 Allergy status to narcotic agent; Z79.899 Other long term (current) drug therapy; Z79.84 Long term (current) use of oral hypoglycemic drugs; Y99.0 Civilian activity done for income or pay
CPT/HCPCS: 64450; 73140; 90471; 90715; 99283-25

== ENCOUNTER 2025-07-05 12:48 | Emergency (ER) | payer OTHER ==
[~2025-07-05] VITALS: Ht 157.5 cm; Wt 80.0 kg
[~2025-07-05 12:48] MED LIST changes: +GLUCOPHAGE500 MG PO; +KEFLEX500 MG PO; +LISINOPRIL20 MG PO; +PROTONIX40 MG PO
[2025-07-05] MEDS ORDERED: CIPRO500 MG PO (17:11)
[2025-07-05 17:13] VITALS: BP 133/96
== END 2025-07-05 17:19 | disposition home or self-care (01) ==
LOC: ED 12:48
DX: S91.331A Puncture wound without foreign body, right foot, initial encounter (principal); E03.9 Hypothyroidism, unspecified; F17.200 Nicotine dependence, unspecified, uncomplicated; W10.9XXA Fall (on) (from) unspecified stairs and steps, initial encounter; Z79.84 Long term (current) use of oral hypoglycemic drugs; Z79.899 Other long term (current) drug therapy; Z88.5 Allergy status to narcotic agent
CPT/HCPCS: 73630; 99283